=== PATIENT | male | born 1950 | race Caucasian/White ===

== ENCOUNTER → 2016-12-11 | Outpatient (REF) | payer OTHER ==
[~2016-12-11] MED LIST: /ADVA50050; /GLIM4TA PO; /TIOT18INH; /WARF25TA; /WARF5TA; ACET65TA; ADV250INH INH; ALBU17IN2; ALBU17IN2 INH; ALBU83IN INH; ALCLOMETASONE; AMLO25TA PO; BUTR10DI2 TD; CLOB05OI TOP; CLON0.2T PO; COUMADIN; COZA100T2 PO; CYMB60CA3 PO; DAPS25TA2 PO; DICL13PA TD; DOCU10CA PO; DRIS50002 PO; DULCOLAX; EFFE150C; FISH100049 PO; FISHCAP; FLON0.05; FLUTISP; GLUC1KIT INJ; GUAFENESIN; HYDR-3713 PO; HYDR25T PO; HYDR25TA6; HYDR25TA6 PO; INSUH10VL SC; INSULADS SC; INSULANT; JANT7.5T; LANTUS INSULIN; LIPI20TA; LIPI20TA PO; LISI10TA4; LORT1TAB2 PO; MECL-68 PO; MIRALEX; NIAS500T2; NOVO70VL; NOVOLIN; PATA2.5S OU; PATANOL; PRED10TA2; PRIL20CA PO; PROA1AER INH; REST15CA; REST30CA PO; SALI0.653; SILV1CRE19 TOP; SKEL800T5; SPIR1CAP INH; TEMA30CA; VICO5TAB; VITA100037 PO; VITAMIN D; VITAMINS; WARF-21 PO; WARF-22 PO; XANA0.5T; XOPE1.252; [UNRECOGNIZED DRUG - OTHER]; [UNRECOGNIZED DRUG - OTHER]
[2016-12-11 16:12] LABS: INR 3.38
== END ==
LOC: M SFHCPLAZ 12:59
PROVIDERS: ATTEND Nurse Practitioner Family
DX: Z51.81 Encounter for therapeutic drug level monitoring (principal); Z79.899 Other long term (current) drug therapy

== ENCOUNTER → 2016-12-11 | Outpatient (REF) | payer OTHER ==
[2016-12-11 15:54] LABS: MEAN CORPUSCULAR HEMOGLOBIN 30.3 pg (27.0-33.0); MEAN CORPUSCULAR HGB CONC 33.4 g/dl (32.0-36.5); MEAN CORPUSCULAR VOLUME 90.7 fl (80.0-96.0); RED CELL DISTRIBUTION WIDTH 13.6 % (11.5-14.5); WHITE BLOOD COUNT 12.5 K/mm3 (4.0-10.0)
[2016-12-11 16:12] LABS: ALBUMIN 2.9 GM/DL (3.2-5.2); CALCIUM LEVEL 8.7 MG/DL (8.8-10.2); CREATININE FOR GFR 2.21 MG/DL (0.70-1.30); PHOSPHORUS LEVEL 3.4 MG/DL (2.5-4.9); POTASSIUM SERUM 4.4 MEQ/L (3.5-5.1)
== END ==
LOC: M LABDRAWP 15:38
PROVIDERS: ATTEND Internal Medicine Nephrology
DX: N18.3 Chronic kidney disease, stage 3 (moderate) (principal); D63.1 Anemia in chronic kidney disease; N25.81 Secondary hyperparathyroidism of renal origin; Z51.81 Encounter for therapeutic drug level monitoring; Z79.899 Other long term (current) drug therapy

== ENCOUNTER → 2016-12-25 | Outpatient (REF) | payer OTHER ==
[2016-12-25 16:00] LABS: INR 2.02
== END ==
LOC: M SFHCPLAZ 15:19
PROVIDERS: ATTEND Nurse Practitioner Family
DX: Z51.81 Encounter for therapeutic drug level monitoring (principal); Z79.01 Long term (current) use of anticoagulants

== ENCOUNTER → 2017-01-12 | Outpatient (CLI) | payer OTHER ==
--- NOTE | 2017-01-20 01:08 | ECWPNPC ---
PATIENT NAME: YOVANI VALLEJO : 1950 GENDER: MALE VISIT DATE: 01/12/2017 DISCHARGE DATE: 01/12/17 1617 VISIT LOCKED DATE TIME: PHYSICIAN: SAVANNA PARR RESOURCE: SAVANNA PARR REASON FOR APPOINTMENT 1. FOOT HISTORY OF PRESENT ILLNESS HISTORY OF PRESENT ILLNESS: HERE FOR F/U AND MEDICINE MANAGEMENT OF PERSISTENT LOW BACK PAIN AND DPN PAIN. REPORTS SIGNIFICANT INCREASE IN LBP PAST 2 WEEKS.PAIN IS LOCATED ON RIGHT LOW BACK AND TRAVELS UP RIGHT BACK TO SHOULDER AREA. STATES HE RECENTLY WAS DX WITH STAGE 3 KIDNEY DISEASE AND KIDNEYS HAVE BEEN STABLE AT 28%.RATING PAIN VAS 10/10.PAIN AGGREVATED BY STANDING TO WALK.PAIN IS NOT BEING CONTROLLED WITH CURRENT BUTRANS 10MCG Q7DAYS. PAIN THE PATIENT DESCRIBES THE PAIN... THE PATIENT DESCRIBES THE PAIN... FALL RISK SCREENING: SCREENING :NO FALLS IN THE PAST YEAR CURRENT MEDICATIONS TAKING NEURONTIN 600 MG TABLET 1 TABLET ORALLY EVERY NIGHT TAKING CLOBETASOL PROPIONATE 0.05 % OINTMENT 1 APPLICATION TO AFFECTED AREA ON LEGS AND ARMS EXTERNALLY TWICE A DAY NEEDED TAKING NORVASC 5 MG TABLET 1 TABLET ORALLY ONCE A DAY TAKING COZAAR 100 MG TABLET 1 TAB(S) ORALLY DAILY TAKING FLUTICASONE PROPIONATE 50 MCG/ACT SUSPENSION INSTILL 1-2 SPRAYS INTO EACH NOSTRIL ONCE DAILY NASALLY ONCE A DAY NEEDED TAKING PATADAY 0.2 % SOLUTION DIRECTED OPHTHALMIC ONCE DAILY TAKING DRISDOL 50,000 UNITS TABLET 1 CAPSULE ORALLY ONCE A WEEK TAKING GLUCAGON EMERGENCY 1 MG KIT DIRECTED INJECTION DAILY NEEDED TAKING MIRALAX PACKET 1 PACKET MIXED WITH 8 OUNCES OF FLUID ORALLY DAILY TAKING ZOFRAN ODT 4 MG TABLET DISPERSIBLE 1 TABLET ON THE TONGUE AND ALLOW TO DISSOLVE ORALLY EVERY 8 HRS NEEDED TAKING FISH OIL 1000 MG CAPSULE 1 CAP(S) ORALLY THREE TIMES A DAY TAKING PEN NEEDLES 31G X 5 MM ULTRA FINE 1 EACH INTRADERMALLY DIAG CODE 250.60 FOUR TIMES A DAY TAKING MECLIZINE HCL 25 MG TABLET 1 TABLET ORALLY ONCE A DAY NEEDED FOR VERTIGO TAKING COBAN SELF-ADHERENT WRAP 1 MISCELLANEOUS TO WOUND TOPICAL DAILY, NEEDED TAKING CLOBETASOL PROPIONATE 0.05 % SOLUTION 1 DROP TO AFFECTED AREA EXTERNALLY TO AREAS ON SCALP, ARMS, BUTTOCKS, ABDOMEN TWICE A DAY TAKING TAMSULOSIN HCL 0.4 MG CAPSULE EXTENDED RELEASE 24 HOUR 1 CAPSULE 30 MINUTES AFTER THE SAME MEAL EACH DAY ORALLY ONCE A DAY TAKING MOVANTIK 12.5 MG TABLET 1 TABLET IN THE MORNING ORALLY ONCE A DAY TAKING LIPITOR 40 MG TABLET 1 TABLET ORALLY ONCE A DAY TAKING SALINE NASAL SPRAY 0.65 % SOLUTION 2 SPRAYS EACH NOSTRIL NASALLY FOUR TIMES DAILY NEEDED TAKING CETIRIZINE HCL 10 MG CAPSULE 1 CAPSULE ORALLY ONCE A DAY PRN TAKING HYDROCHLOROTHIAZIDE 25 25 MG TABLET 1 TAB(S) ORALLY DAILY TAKING LANTUS 100 UNIT/ML SOLUTION TWICE A DAY SUBCUTANEOUS 10 UNITS IN AM 20 PM TAKING NOVOLOG 100 UNIT/ML SOLUTION 10 UNITS BREAKFAST, 10 UNITS LUNCH, 14 UNITS DINNER ( DR. PRADO) SUBCUTANEOUS THREE TIMES A DAY DR PRADO TAKING AMARYL 4 MG TABLET 1 TABLET ORALLY TWICE A DAY TAKING OMEPRAZOLE 20 MG CAPSULE DELAYED RELEASE 1 CAP(S) ORALLY DAILY TAKING COUMADIN 7.5 MG TABLET 1 TABLET ORALLY 5 MGS ON SAT, SUN & WED. 7,5 MGS REST OF WEEK TAKING ALBUTEROL SULFATE (2.5 MG/3ML) 0.083% NEBULIZATION SOLUTION 3 ML INHALATION EVERY 4 HRS NEEDED TAKING PROVENTIL HFA 108 (90 BASE) MCG/ACT AEROSOL SOLUTION 2 PUFFS INHALATION EVERY 4 HOURS NEEDED TAKING INCRUSE ELLIPTA 62.5 MCG/INH AEROSOL POWDER BREATH ACTIVATED 1 PUFF ONCE A DAY INHALATION 30 DAY(S) TAKING ADVAIR DISKUS 500-50 MCG/DOSE AEROSOL POWDER BREATH ACTIVATED 1 PUFF INHALATION TWICE A DAY TAKING PREDNISONE 20 MG TABLET 1 TABLET ORALLY ONCE A DAY TAKING HYDROXYZINE HCL 25 MG TABLET 1 TABLET ORALLY EVERY 8 HRS NEEDED TAKING NORCO 5-325 MG TABLET 1 TABLET NEEDED ORALLY EVERY 6 HRS MDD =4 TAKING CYMBALTA 60 MG CAPSULE DELAYED RELEASE PARTICLES 1 CAPSULE ORALLY ONCE A DAY TAKING BUTRANS 10 MCG/HR PATCH WEEKLY 1 PATCH TO SKIN TRANSDERMAL APPLY 1 PATCH Q 7 DAYS MDD=1 TAKING TEMAZEPAM 30 MG CAPSULE 1 CAPSULE AT BEDTIME NEEDED ORALLY ONCE A DAY NOT-TAKING CEFTIN 500 MG TABLET 1 TABLET ORALLY TWICE A DAY MEDICATION LIST REVIEWED AND RECONCILED WITH THE PATIENT PAST MEDICAL HISTORY DVT CHRONIC PHLEBITIS CHRONIC VENOUS INSUFFICIENCY PERIPHERAL NEUROPATHY TYPE 2 DIABETES--DR Amisha PRADO HYPERLIPIDEMIA HTN COPD HX OF DEPRESSION DDD/DJD GERD DERMATITIS HERPETIFORMIS-- + BX 05/03 DR MCDONALD ADENOMATOUS COLON POLYP 2009 RESTLESS LEG SYNDROME GLUTEN INTOLERANT (NOT CELIAC DIS-- NEG SB BX 06/03--BUT HAS DERMATITIS HERPETIFORMIS-- + BX 05/03 DR MCDONALD) RIGTH SHOULDER NERVE IMPINGEMENT/RIGHT CARPEL TUNNEL - DR. PRADO GORDON ON CPAP SUBCLINICAL HYPOTHYROIDISM 06/07 DIVERTICULOSIS 01/2016 KIDNEY DISEASE ALLERGIES ACTOS: EDEMA: SIDE EFFECTS DEMEROL: HIVES: ALLERGY DILANTIN: ANAPHYLAXIS: ALLERGY GLUCOPHAGE: RASH: ALLERGY LEVAQUIN: HEAD ACHE: SIDE EFFECTS PHENOBARBITAL: ANAPHYLAXIS: ALLERGY TEGRETOL: ANAPHYLAXIS: ALLERGY PENICILLIN (FOR ALLERGIES USE ONLY): HIVES: ALLERGY TRIPLE ANTIBIOTIC: FACIAL SWELLING: ALLERGY REQUIP: ELEVATED LIVER ENZYMES LATEX (FOR ALLERGY USE ONLY): RASH: ALLERGY CRESTOR: HEADACHE LYRICA: DIDN'T WORK: SIDE EFFECTS CAPSACIN (TOPICALLY): EXCESSIVE BURNING: SIDE EFFECTS LISINOPRIL: RASH: SIDE EFFECTS GABAPENTIN: DIDN'T WORK: LACK OF THERAPEUTIC EFFECT DAPSONE: ANEMIA: SIDE EFFECTS NSAIDS: CONTRAINDICATION SOCIAL HISTORY GENERAL: TOBACCO USE ARE YOU A:NONSMOKER LEARNING BARRIERS / SPECIAL NEEDS ORIENTED TO PLAN OF CARE: PATIENT, PAIN MANAGEMENT PATIENT, ORIENTED TO PLAN OF CARE: PATIENT, PAIN MANAGEMENT PATIENT. NEW PATIENT PAIN DIARY TODAY'S VISITNOTES FROM 0-10, WHAT LEVEL IS YOUR PAIN TODAY?0 PAIN CLINIC PFS, CLERGY, PUBLIC HEALTH REFERRALS PFS REFERRAL NEEDED?NO CLERGY REFERRAL NEEDED?NO PUBLIC HEALTH REFERRAL NEEDED?NO WAS THE PROVIDER NOTIFIED OF ANY PERTINENT INFO?NO PFS REFERRAL NEEDED?NO CLERGY REFERRAL NEEDED?NO PUBLIC HEALTH REFERRAL NEEDED?NO WAS THE PROVIDER NOTIFIED OF ANY PERTINENT INFO?NO REVIEW OF SYSTEMS CONSTITUTIONAL: ANY CHANGE IN YOUR MEDICAL CONDITION? NO . CHILLS NO . FEVER NO . INFECTION: DO YOU HAVE NEW INFECTIONS? NO . DO YOU HAVE HISTORY OF MRSA? NO . MUSCULOSKELETAL: ANY NEW PATTERNS OF PAIN OR NUMBNESS? YES, TINGLING LEFT FOOT AT NIGHT . GASTROENTEROLOGY: ANY NEW CHANGE IN BOWEL CONTROL? NO . GENITOURINARY: ANY NEW CHANGE IN BLADDER CONTROL? NO . IS THERE A CHANCE YOU COULD BE ? NO . HEMATOLOGY/LYMPH: DO YOU TAKE ANY BLOOD THINNERS? (FOR EXAMPLE- COUMADIN, PLAVIX, AGGRENOX, PLATEL, PRADAXA, OR XARELTO) YES, COUMADIN . WHEN WAS YOUR LAST DOSE? DATE: TIME: 01/11/17 1700 . NEUROLOGY: HAVE YOU FALLEN IN THE PAST 6 MONTHS? NO . ANY NEW EXTREMITY NUMBNESS OR WEAKNESS? NO . CARDIOLOGY: DO YOU HAVE A PACEMAKER OR DEFIBRILLATOR? NO . RESPIRATORY: HAVE YOU BEEN SICK IN THE PAST WEEK? YES HAS A COLD AT PRESENT TIME AND HAS HAD PNEUMONIA X2 THIS WINTER . FEVER NO . FLU LIKE SYMPTOMS? NO . COUGH YES, PRODUCTIVE, WHITE SPUTUM . INTEGUMENTARY: DO YOU HAVE ANY RASHES OR OPEN SORES? YES SCRATCHES ON HANDS AND ARMS . ALLERGIC/IMMUNO: ARE YOU ALLERGIC TO SHELLFISH OR IV DYE? NO . ANY NEW ALLERGIES? NO . PSYCHIATRIC: DO YOU HAVE THOUGHTS OF HURTING YOURSELF OR SOMEONE ELSE? NO . ARE YOU ABUSED, NEGLECTED, OR IN AN UNSAFE ENVIRONMENT? NO . ENDOCRINOLOGY: ARE YOU DIABETIC? YES, FSBS WAS 218 @ 1200 TODAY . OTHER: DO YOU NEED ANY PRESCRIPTIONS? YES . IF YES, PLEASE LIST: ___BUTRANS AND MOVANTIK . ANY NEW PROBLEMS WITH YOUR MEDICATIONS? NO . WHEN DID YOU LAST EAT? ____ . WHEN DID YOU LAST DRINK? ____ . WHAT DID YOU LAST DRINK? ____ . NAME OF PERSON DRIVING YOU HOME? ____ . DO YOU HAVE ANY OTHER QUESTIONS OR CONCERNS NO . REVIEWED BY: PROVIDER: SAVANNA PATEL . VITAL SIGNS WT 224.6 LBS, HT 69 IN, BMI 33.16 INDEX, BP 171/73 MM HG, HR 84 /MIN, RR 18 /MIN, TEMP 98.1 F, OXYGEN SAT % 95%, NA INITIALS SC15:24, REVIEWED BY: AD. EXAMINATION GENERAL EXAMINATION: LUNGS:LUNG SOUNDS ARE CLEAR. HEART:HEART RATE REGULAR. MUSCULOSKELETAL:*PALPATION: POSITIVE FOR PAIN OVER L/S SPINE. POSITIVE FOR PAIN OVER L/S PARASPINALS, , MUSCLE STRENGTH TESTING 5/5 BLE. NEUROLOGICAL: SENSORY:PARATHESIAS TO LIGHT TOUCH RIGHT LOWER EXT.. ASSESSMENTS DIABETIC PERIPHERAL NEUROPATHY - E11.42 (PRIMARY) CHRONIC PRESCRIPTION OPIATE USE - Z79.891 SPONDYLOSIS OF LUMBOSACRAL REGION WITHOUT MYELOPATHY OR RADICULOPATHY - M47.817 TREATMENT DIABETIC PERIPHERAL NEUROPATHY CONTINUE MOVANTIK TABLET, 12.5 MG, 1 TABLET IN THE MORNING, ORALLY, ONCE A DAY INCREASE BUTRANS PATCH WEEKLY, 20 MCG/HR, 1 PATCH TO SKIN, TRANSDERMAL, APPLY 1 PATCH Q 7 DAYS MDD=1, 30 DAY(S), 4, REFILLS 2 START CYCLOBENZAPRINE HCL TABLET, 5 MG, 1 TABLET, ORALLY, BID PRN, 30 DAY(S), 30, REFILLS 2 PROCEDURE CODES FA211 ESTABILISHED PATIENT [facility] CHARGE DISPOSITION & COMMUNICATION FOLLOW UP 6 WEEKS ELECTRONICALLY SIGNED BY JORGE HELLER ON 01/19/2017 AT 05:53 PM EDT DISCLAIMER : THIS IS A VISIT SUMMARY EXTRACTED FROM THE [employer] CHART. IT IS NOT A COPY OF THE [employer] PROGRESS NOTE. MTDD
== END ==
LOC: M PAIN 14:40
PROVIDERS: ATTEND Nurse Practitioner Family
DX: Z09 Encounter for follow-up examination after completed treatment for conditions other than malignant neoplasm (principal); Z79.891 Long term (current) use of opiate analgesic; M47.817 Spondylosis without myelopathy or radiculopathy, lumbosacral region; Z79.84 Long term (current) use of oral hypoglycemic drugs; Z79.4 Long term (current) use of insulin; Z79.01 Long term (current) use of anticoagulants; Z79.899 Other long term (current) drug therapy; Z86.718 Personal history of other venous thrombosis and embolism; K21.9 Gastro-esophageal reflux disease without esophagitis; I10 Essential (primary) hypertension; D63.8 Anemia in other chronic diseases classified elsewhere; E11.42 Type 2 diabetes mellitus with diabetic polyneuropathy; J44.1 Chronic obstructive pulmonary disease with (acute) exacerbation; D50.9 Iron deficiency anemia, unspecified; E78.2 Mixed hyperlipidemia; G25.81 Restless legs syndrome; Z88.0 Allergy status to penicillin; Z88.1 Allergy status to other antibiotic agents; Z88.8 Allergy status to other drugs, medicaments and biological substances; Z91.040 Latex allergy status

== ENCOUNTER → 2017-01-26 | Outpatient (REF) | payer OTHER ==
[2017-01-26 13:51] LABS: INR 1.32
== END ==
LOC: M SFHCPLAZ 11:00
PROVIDERS: ATTEND Nurse Practitioner Family
DX: Z51.81 Encounter for therapeutic drug level monitoring (principal); Z79.01 Long term (current) use of anticoagulants

== ENCOUNTER → 2017-02-08 | Outpatient (REF) | payer OTHER ==
[2017-02-08 15:34] LABS: BASO % 0.7 % (0.0-1.0); EOS # 0.6 K/mm3 (0.0-0.50); EOS % 10.9 % (0.0-3.0); LARGE UNSTAINED CELL # 0.1 K/mm3 (0.0-0.4); LARGE UNSTAINED CELL % 2.3 % (0.0-4.0); LYMPH # 1.7 K/mm3 (1.5-4.5); LYMPH % 28.8 % (24.0-44.0); MEAN CORPUSCULAR HEMOGLOBIN 29.7 pg (27.0-33.0); MEAN CORPUSCULAR HGB CONC 32.5 g/dl (32.0-36.5); MEAN CORPUSCULAR VOLUME 91.2 fl (80.0-96.0); MONO # 0.3 K/mm3 (0.0-0.8); MONO % 5.2 % (0.0-5.0); NEUTROPHILS # 2.8 K/mm3 (1.8-7.7); NEUTROPHILS % 52.1 % (36.0-66.0); PLATELET COUNT, AUTOMATED 228 k/mm3 (150-450); RED CELL DISTRIBUTION WIDTH 12.9 % (11.5-14.5); WHITE BLOOD COUNT 5.4 K/mm3 (4.0-10.0)
[2017-02-08 15:42] LABS: ALBUMIN 3.3 GM/DL (3.2-5.2); ALBUMIN/GLOBULIN RATIO 0.94 (1.00-1.93); BILIRUBIN,TOTAL 0.3 MG/DL (0.2-1.0); CALCIUM LEVEL 8.4 MG/DL (8.8-10.2); CREATININE FOR GFR 2.55 MG/DL (0.70-1.30); GLOMERULAR FILTRATION RATE 27.1 (>49); PERCENT SATURATION 22.3 % (19.7-37.4); POTASSIUM SERUM 4.9 MEQ/L (3.5-5.1); TOTAL PROTEIN 6.8 GM/DL (6.4-8.2)
== END ==
LOC: M SFHCPLAZ 13:57
PROVIDERS: ATTEND Nurse Practitioner Family
DX: E11.9 Type 2 diabetes mellitus without complications (principal); I12.9 Hypertensive chronic kidney disease with stage 1 through stage 4 chronic kidney disease, or unspecified chronic kidney disease; N18.9 Chronic kidney disease, unspecified
CPT/HCPCS: 36415; 80053; 83550; 85025; 85610; G0463

== ENCOUNTER → 2017-02-23 | Outpatient (CLI) | payer OTHER ==
[~2017-02-23] MED LIST changes: +ADV500INH INH; +ALL10TAB27 PO; +BUTR20DI2 TD; +COUM7.5T PO; +FERR325T PO; +FLOM5CAP PO; +GABA-283 PO; +GLIM2TA PO; +HYDR25TAB PO; +INCR1INH IN; +INCR1INH INH; +INSULANT SC; +MIRA3350 PO; +MOVA1TAB PO; +NORC1TAB4 PO; +OMEP20TA PO; +PATA0.2S OP; +REQU0.5T PO; +REQU2TAB3 PO; +SING10TA32 PO; +WARF-23 PO; +ZOFR4TAB3 PO
--- NOTE | 2017-03-03 01:50 | ECWPNPC ---
PATIENT NAME: YOVANI VALLEJO : 1950 GENDER: MALE VISIT DATE: 02/23/2017 DISCHARGE DATE: 02/23/17 1456 VISIT LOCKED DATE TIME: PHYSICIAN: SAVANNA PARR RESOURCE: SAVANNA PARR REASON FOR APPOINTMENT 1. FOOT HISTORY OF PRESENT ILLNESS HISTORY OF PRESENT ILLNESS: HERE FOR F/U AND MEDICINE MANAGEMENT OF PERSISTENT LOW BACK PAIN AND DPN PAIN. REPORTS THAT BUTRANS PATCH 20MCG Q 7 DAYS IS HELPING VERY MUCH.ALSO USING CYCLOBENZAPRINE 5MG AT NIGHT.RATING PAIN VAS 0/10.CHIEF PROBLEM TODAY IS REPORTS OF CHRONIC LEG AND BODY JERKS AT NIGHT. PAIN THE PATIENT DESCRIBES THE PAIN... THE PATIENT DESCRIBES THE PAIN... THE PATIENT DESCRIBES THE PAIN... FALL RISK SCREENING: SCREENING :NO FALLS IN THE PAST YEAR CURRENT MEDICATIONS TAKING PATADAY 0.2 % SOLUTION DIRECTED OPHTHALMIC ONCE DAILY TAKING DRISDOL 50,000 UNITS TABLET 1 CAPSULE ORALLY ONCE A WEEK TAKING GLUCAGON EMERGENCY 1 MG KIT DIRECTED INJECTION DAILY NEEDED TAKING MIRALAX PACKET 1 PACKET MIXED WITH 8 OUNCES OF FLUID ORALLY DAILY TAKING ZOFRAN ODT 4 MG TABLET DISPERSIBLE 1 TABLET ON THE TONGUE AND ALLOW TO DISSOLVE ORALLY EVERY 8 HRS NEEDED TAKING FISH OIL 1000 MG CAPSULE 1 CAP(S) ORALLY THREE TIMES A DAY TAKING PEN NEEDLES 31G X 5 MM ULTRA FINE 1 EACH INTRADERMALLY DIAG CODE 250.60 FOUR TIMES A DAY TAKING MECLIZINE HCL 25 MG TABLET 1 TABLET ORALLY ONCE A DAY NEEDED FOR VERTIGO TAKING COBAN SELF-ADHERENT WRAP 1 MISCELLANEOUS TO WOUND TOPICAL DAILY, NEEDED TAKING TAMSULOSIN HCL 0.4 MG CAPSULE EXTENDED RELEASE 24 HOUR 1 CAPSULE 30 MINUTES AFTER THE SAME MEAL EACH DAY ORALLY ONCE A DAY TAKING SALINE NASAL SPRAY 0.65 % SOLUTION 2 SPRAYS EACH NOSTRIL NASALLY FOUR TIMES DAILY NEEDED TAKING CETIRIZINE HCL 10 MG CAPSULE 1 CAPSULE ORALLY ONCE A DAY PRN TAKING INCRUSE ELLIPTA 62.5 MCG/INH AEROSOL POWDER BREATH ACTIVATED 1 PUFF ONCE A DAY INHALATION 30 DAY(S) TAKING MOVANTIK 12.5 MG TABLET 1 TABLET IN THE MORNING ORALLY ONCE A DAY TAKING COUMADIN 5 MG TABLET 1 TABLET ORALLY 5 MG ON SAT AND SUN AND 7.5 MG REST OF THE WEEK TAKING LANTUS 100 UNIT/ML SOLUTION TWICE A DAY SUBCUTANEOUS 10 UNITS IN AM 24 PM TAKING NOVOLOG 100 UNIT/ML SOLUTION 10 UNITS BREAKFAST, 10 UNITS LUNCH, 23 UNITS DINNER ( DR. PRADO) SUBCUTANEOUS 10 UNITS IN AM, 10 UNITS LUNCH AND 23 UNITS DINNER TAKING AMARYL 4 MG TABLET 1 TABLET ORALLY TWICE A DAY TAKING HYDROCHLOROTHIAZIDE 25 25 MG TABLET 1 TAB(S) ORALLY DAILY TAKING COZAAR 100 MG TABLET 1 TAB(S) ORALLY DAILY TAKING NORVASC 5 MG TABLET 1 TABLET ORALLY ONCE A DAY TAKING NEURONTIN 600 MG TABLET 1 TABLET ORALLY EVERY NIGHT TAKING TEMAZEPAM 30 MG CAPSULE 1 CAPSULE AT BEDTIME NEEDED ORALLY ONCE A DAY TAKING CYMBALTA 60 MG CAPSULE DELAYED RELEASE PARTICLES 1 CAPSULE ORALLY ONCE A DAY TAKING BUTRANS 20 MCG/HR PATCH WEEKLY 1 PATCH TO SKIN TRANSDERMAL APPLY 1 PATCH Q 7 DAYS MDD=1 TAKING CYCLOBENZAPRINE HCL 5 MG TABLET 1 TABLET ORALLY BID PRN TAKING ADVAIR DISKUS 500-50 MCG/DOSE AEROSOL POWDER BREATH ACTIVATED 1 PUFF INHALATION TWICE A DAY TAKING PROVENTIL HFA 108 (90 BASE) MCG/ACT AEROSOL SOLUTION 2 PUFFS INHALATION EVERY 4 HOURS NEEDED TAKING ALBUTEROL SULFATE (2.5 MG/3ML) 0.083% NEBULIZATION SOLUTION 3 ML INHALATION EVERY 4 HRS NEEDED TAKING FULL KIT NEBULIZER SET - MISCELLANEOUS DIRECTED DX J44.9 (COPD) DAILY TAKING ALCLOMETASONE DIPROPIONATE 0.05 % OINTMENT 1 APPLICATION TO AFFECTED AREA EXTERNALLY ONCE A DAY TAKING LIPITOR 40 MG TABLET 1 TABLET ORALLY ONCE A DAY TAKING OMEPRAZOLE 20 MG CAPSULE DELAYED RELEASE 1 CAP(S) ORALLY DAILY TAKING FLUTICASONE PROPIONATE 50 MCG/ACT SUSPENSION INSTILL 1-2 SPRAYS INTO EACH NOSTRIL ONCE DAILY NASALLY ONCE A DAY TAKING NORCO 5-325 MG TABLET 1 TABLET NEEDED ORALLY EVERY 6 HRS MDD =4, NOTES: DO NOT FILL EARLY NOT-TAKING CLOBETASOL PROPIONATE 0.05 % OINTMENT 1 APPLICATION TO AFFECTED AREA ON LEGS AND ARMS EXTERNALLY TWICE A DAY NEEDED, NOTES: NO LONGER COVERED NOT-TAKING PREDNISONE 20 MG TABLET 1 TABLET ORALLY ONCE A DAY NOT-TAKING CEFTIN 500 MG TABLET 1 TABLET ORALLY TWICE A DAY MEDICATION LIST REVIEWED AND RECONCILED WITH THE PATIENT PAST MEDICAL HISTORY DVT CHRONIC PHLEBITIS CHRONIC VENOUS INSUFFICIENCY PERIPHERAL NEUROPATHY TYPE 2 DIABETES--DR Amisha PRADO HYPERLIPIDEMIA HTN COPD HX OF DEPRESSION DDD/DJD GERD DERMATITIS HERPETIFORMIS-- + BX 05/03 DR MCDONALD ADENOMATOUS COLON POLYP 2009 RESTLESS LEG SYNDROME GLUTEN INTOLERANT (NOT CELIAC DIS-- NEG SB BX 06/03--BUT HAS DERMATITIS HERPETIFORMIS-- + BX 05/03 DR MCDONALD) RIGTH SHOULDER NERVE IMPINGEMENT/RIGHT CARPEL TUNNEL - DR. PRADO GORDON ON CPAP SUBCLINICAL HYPOTHYROIDISM 06/07 DIVERTICULOSIS 01/2016 KIDNEY DISEASE ALLERGIES ACTOS: EDEMA: SIDE EFFECTS DEMEROL: HIVES: ALLERGY DILANTIN: ANAPHYLAXIS: ALLERGY GLUCOPHAGE: RASH: ALLERGY LEVAQUIN: HEAD ACHE: SIDE EFFECTS PHENOBARBITAL: ANAPHYLAXIS: ALLERGY TEGRETOL: ANAPHYLAXIS: ALLERGY PENICILLIN (FOR ALLERGIES USE ONLY): HIVES: ALLERGY TRIPLE ANTIBIOTIC: FACIAL SWELLING: ALLERGY REQUIP: ELEVATED LIVER ENZYMES LATEX (FOR ALLERGY USE ONLY): RASH: ALLERGY CRESTOR: HEADACHE LYRICA: DIDN'T WORK: SIDE EFFECTS CAPSACIN (TOPICALLY): EXCESSIVE BURNING: SIDE EFFECTS LISINOPRIL: RASH: SIDE EFFECTS GABAPENTIN: DIDN'T WORK: LACK OF THERAPEUTIC EFFECT DAPSONE: ANEMIA: SIDE EFFECTS NSAIDS: CONTRAINDICATION REVIEW OF SYSTEMS CONSTITUTIONAL: ANY CHANGE IN YOUR MEDICAL CONDITION? NO . CHILLS NO . FEVER NO . INFECTION: DO YOU HAVE NEW INFECTIONS? NO . DO YOU HAVE HISTORY OF MRSA? NO . MUSCULOSKELETAL: ANY NEW PATTERNS OF PAIN OR NUMBNESS? NO . GASTROENTEROLOGY: ANY NEW CHANGE IN BOWEL CONTROL? NO . GENITOURINARY: ANY NEW CHANGE IN BLADDER CONTROL? NO . IS THERE A CHANCE YOU COULD BE ? NO . HEMATOLOGY/LYMPH: DO YOU TAKE ANY BLOOD THINNERS? (FOR EXAMPLE- COUMADIN, PLAVIX, AGGRENOX, PLATEL, PRADAXA, OR XARELTO) YES, COUMADIN . WHEN WAS YOUR LAST DOSE? DATE: 02/22/17 TIME: 5 PM . NEUROLOGY: HAVE YOU FALLEN IN THE PAST 6 MONTHS? NO . ANY NEW EXTREMITY NUMBNESS OR WEAKNESS? NO . CARDIOLOGY: DO YOU HAVE A PACEMAKER OR DEFIBRILLATOR? NO . RESPIRATORY: HAVE YOU BEEN SICK IN THE PAST WEEK? NO . FEVER NO . FLU LIKE SYMPTOMS? NO . COUGH NO . INTEGUMENTARY: DO YOU HAVE ANY RASHES OR OPEN SORES? YES, ON ARMS AND LEGS . ALLERGIC/IMMUNO: ARE YOU ALLERGIC TO SHELLFISH OR IV DYE? NO . ANY NEW ALLERGIES? NO . PSYCHIATRIC: DO YOU HAVE THOUGHTS OF HURTING YOURSELF OR SOMEONE ELSE? NO . ARE YOU ABUSED, NEGLECTED, OR IN AN UNSAFE ENVIRONMENT? NO . ENDOCRINOLOGY: ARE YOU DIABETIC? YES . OTHER: DO YOU NEED ANY PRESCRIPTIONS? NO . IF YES, PLEASE LIST: ____ . ANY NEW PROBLEMS WITH YOUR MEDICATIONS? NO . WHEN DID YOU LAST EAT? ____ . WHEN DID YOU LAST DRINK? ____ . WHAT DID YOU LAST DRINK? ____ . NAME OF PERSON DRIVING YOU HOME? ____ . DO YOU HAVE ANY OTHER QUESTIONS OR CONCERNS NO . REVIEWED BY: PROVIDER: SAVANNA PATEL . VITAL SIGNS WT 225 LBS, HT 69 IN, BMI 33.22 INDEX, BP 144/67 MM HG, HR 96 /MIN, RR 18 /MIN, TEMP 98.4 F, OXYGEN SAT % 94%, NA INITIALS AW 1407, REVIEWED BY: CS. EXAMINATION GENERAL EXAMINATION: LUNGS:LUNG SOUNDS ARE CLEAR. HEART:HEART RATE REGULAR. MUSCULOSKELETAL:*PALPATION: POSITIVE FOR PAIN OVER L/S SPINE. POSITIVE FOR PAIN OVER L/S PARASPINALS, , MUSCLE STRENGTH TESTING 5/5 BLE. ASSESSMENTS DIABETIC PERIPHERAL NEUROPATHY - E11.42 (PRIMARY) CHRONIC PRESCRIPTION OPIATE USE - Z79.891 SPONDYLOSIS OF LUMBOSACRAL REGION WITHOUT MYELOPATHY OR RADICULOPATHY - M47.817 TREATMENT DIABETIC PERIPHERAL NEUROPATHY REFILL BUTRANS PATCH WEEKLY, 20 MCG/HR, 1 PATCH TO SKIN, TRANSDERMAL, APPLY 1 PATCH Q 7 DAYS MDD=1, 30 DAY(S), 4, REFILLS 2 STOP CYCLOBENZAPRINE HCL TABLET, 5 MG, 1 TABLET, ORALLY, BID PRN START REQUIP XL TABLET EXTENDED RELEASE 24 HOUR, 2 MG, 1 TABLET, ORALLY, ONCE A DAY, 30 DAY(S), 30, REFILLS 1 NOTES: REQUIP INFORMATION GIVEN. PROCEDURE CODES FA211 ESTABILISHED PATIENT [facility] CHARGE DISPOSITION & COMMUNICATION FOLLOW UP 6 WEEKS ELECTRONICALLY SIGNED BY JORGE HELLER ON 03/02/2017 AT 02:32 PM EDT DISCLAIMER : THIS IS A VISIT SUMMARY EXTRACTED FROM THE [employer] CHART. IT IS NOT A COPY OF THE [employer] PROGRESS NOTE. JOVANNA
== END ==
LOC: M PAIN 14:00
PROVIDERS: ATTEND Nurse Practitioner Family
DX: E11.42 Type 2 diabetes mellitus with diabetic polyneuropathy (principal); Z79.891 Long term (current) use of opiate analgesic; M47.817 Spondylosis without myelopathy or radiculopathy, lumbosacral region; Z79.899 Other long term (current) drug therapy; Z79.4 Long term (current) use of insulin; Z88.5 Allergy status to narcotic agent; Z88.0 Allergy status to penicillin; Z88.1 Allergy status to other antibiotic agents; Z91.040 Latex allergy status; Z86.718 Personal history of other venous thrombosis and embolism; K21.9 Gastro-esophageal reflux disease without esophagitis; E11.9 Type 2 diabetes mellitus without complications; I10 Essential (primary) hypertension; D63.8 Anemia in other chronic diseases classified elsewhere; J44.9 Chronic obstructive pulmonary disease, unspecified; D50.9 Iron deficiency anemia, unspecified; E78.2 Mixed hyperlipidemia

== ENCOUNTER → 2017-02-26 | Outpatient (REF) | payer OTHER ==
[~2017-02-26] MED LIST changes: +AMLO5TAB2 PO
[2017-02-26 16:02] LABS: EOS % 0.2 % (0.0-3.0); LARGE UNSTAINED CELL % 0.6 % (0.0-4.0); LYMPH # 0.8 K/mm3 (1.5-4.5); LYMPH % 11.6 % (24.0-44.0); MEAN CORPUSCULAR HEMOGLOBIN 30.2 pg (27.0-33.0); MEAN CORPUSCULAR HGB CONC 32.6 g/dl (32.0-36.5); MEAN CORPUSCULAR VOLUME 92.7 fl (80.0-96.0); MONO # 0.3 K/mm3 (0.0-0.8); MONO % 3.8 % (0.0-5.0); NEUTROPHILS # 5.7 K/mm3 (1.8-7.7); NEUTROPHILS % 83.8 % (36.0-66.0); PLATELET COUNT, AUTOMATED 244 k/mm3 (150-450); RED CELL DISTRIBUTION WIDTH 12.9 % (11.5-14.5); WHITE BLOOD COUNT 6.8 K/mm3 (4.0-10.0)
[2017-02-26 16:19] LABS: PERCENT SATURATION 17.7 % (19.7-37.4)
== END ==
LOC: M SFHCPLAZ 14:56
PROVIDERS: ATTEND Nurse Practitioner Family
DX: N18.9 Chronic kidney disease, unspecified (principal); D63.8 Anemia in other chronic diseases classified elsewhere; Z79.899 Other long term (current) drug therapy
CPT/HCPCS: 36415; 83550; 85025; G0463

== ENCOUNTER → 2017-03-10 | Outpatient (CLI) | payer OTHER ==
[~2017-03-10] MED LIST changes: +BUTR10DI TD; -BUTR10DI2 TD; +BUTR20DI TD; -BUTR20DI2 TD; +FERR1TAB8 PO; -FERR325T PO; +HYDR-3363 PO; -HYDR25T PO; -PROA1AER INH; +PROAAER10 INH; -REQU0.5T PO; +REQU1TAB15 PO; +SALI0.6523; -SALI0.653; -SILV1CRE19 TOP; +SILV1CRE60 TOP; -VITA100037 PO; +VITA100067 PO
--- NOTE | 2017-03-17 15:20 | PFTRPT ---
Tech: Pearl CARMONA RRT Age: 66 Sex: Male Race: Height: 69.00 Inches Weight: 213.00 Lbs BSA: 2.12 Diagnosis: J44.9 TECH NOTES: The test meets the ATS standards for acceptability and repeatability. The patient was given four puffs of albuterol for postbronchodilator. PULMONARY FUNCTION REPORT ORDERING PROVIDER: David Orr MD DATE OF SERVICE: 03/10/17 SPIROMETRY: Pre and post bronchodilator study of excellent technical quality. The forced vital capacity is reduced. The FEV1 is in proportion. The obstructive index is, therefore, normal. FLOW VOLUME LOOP: The expiratory limb of the flow volume loop does suggest flow rate limitation, however. Very favorable bronchodilator response is identified. LUNG VOLUMES: The total lung capacity is normal. The residual volume suggests significant underlying air trapping. DIFFUSION CAPACITY: The diffusion capacity is severely reduced and does not correct for alveolar volume. HEMOGLOBIN: No hemoglobin is available for correction. AIRWAY MECHANICS: Airways resistance and conductance are acceptable. IMPRESSION: Reversible obstructive ventilatory impairment with underlying air trapping and a significant diffusion capacity impairment. Please correlate clinically. MTDD
== END ==
LOC: M CARPUL 15:07
PROVIDERS: ATTEND Family Medicine
DX: J44.9 Chronic obstructive pulmonary disease, unspecified (principal); Z51.81 Encounter for therapeutic drug level monitoring; Z79.01 Long term (current) use of anticoagulants
CPT/HCPCS: 85610; 94060; 94726; 94729; G0463

== ENCOUNTER 2017-03-16 20:09 | Inpatient (IN) | payer OTHER ==
[~2017-03-16] VITALS: Ht 175.3 cm; Wt 95.7 kg
[2017-03-16] MEDS: ADVAIR DISKUS 500/50 INH PWD INH SCH ×2 (03:00→21:00)
[~2017-03-16 20:09] MED LIST changes: -ADV500INH INH; -ALL10TAB27 PO; -AMLO5TAB2 PO; -BUTR10DI TD; +BUTR10DI2 TD; -BUTR20DI TD; -COUM7.5T PO; -FERR1TAB8 PO; -FLOM5CAP PO; -GABA-283 PO; -GLIM2TA PO; -HYDR-3363 PO; +HYDR25T PO; -HYDR25TAB PO; -INCR1INH IN; -INCR1INH INH; -INSULANT SC; -MIRA3350 PO; -MOVA1TAB PO; -NORC1TAB4 PO; -OMEP20TA PO; -PATA0.2S OP; +PROA1AER INH; -PROAAER10 INH; -REQU1TAB15 PO; -REQU2TAB3 PO; -SALI0.6523; +SALI0.653; +SILV1CRE19 TOP; -SILV1CRE60 TOP; -SING10TA32 PO; +VITA100037 PO; -VITA100067 PO; -WARF-23 PO; -ZOFR4TAB3 PO
[2017-03-16] MEDS ORDERED: NORC1TAB4 PO (21:00)
[2017-03-16] MEDS ORDERED: WARF-23 PO (21:00)
[2017-03-16] MEDS ORDERED: ZOFR4TAB3 PO (21:00)
[2017-03-16] MEDS ORDERED: GLIM2TA PO (21:00)
[2017-03-16] MEDS ORDERED: LEVEMIR (INSULIN DETEMIR) 1 UNITS/0.01ML SC SCH (21:00)
[2017-03-16] MEDS ORDERED: ALL10TAB27 PO (21:00)
[2017-03-16] MEDS ORDERED: GABA-283 PO (21:00)
[2017-03-16] MEDS ORDERED: MOVA1TAB PO (21:00)
[2017-03-16] MEDS ORDERED: DRIS50002 PO (21:00)
[2017-03-16] MEDS ORDERED: methylPREDNISolone INJ 125 MG/2 ML VIAL (J2930) IV ONE (21:00)
[2017-03-16] MEDS ORDERED: BUTR20DI2 TD (21:00)
[2017-03-16] MEDS ORDERED: REQU2TAB3 PO (21:00)
[2017-03-16] MEDS ORDERED: MIRA3350 PO (21:00)
[2017-03-16] MEDS ORDERED: PATA0.2S OP (21:00)
[2017-03-16] MEDS ORDERED: INCR1INH IN (21:00)
[2017-03-16] MEDS ORDERED: FLOM5CAP PO (21:00)
[2017-03-16] MEDS ORDERED: ADV500INH INH (21:00)
[2017-03-16] MEDS: IPRATROPIUM 0.5MG/ALBUTEROL 2.5MG INH SOL UD 3ML (DUONEB)(J7620) NEB PRN ×2 (21:23→21:24)
[2017-03-16 21:56] LABS: BASO % 0.2 % (0.0-1.0); EOS # 0.7 K/mm3 (0.0-0.50); EOS % 7.6 % (0.0-3.0); LARGE UNSTAINED CELL # 0.2 K/mm3 (0.0-0.4); LARGE UNSTAINED CELL % 2.6 % (0.0-4.0); LYMPH # 1.9 K/mm3 (1.5-4.5); MEAN CORPUSCULAR HEMOGLOBIN 29.7 pg (27.0-33.0); MEAN CORPUSCULAR VOLUME 87.4 fl (80.0-96.0); MONO # 0.4 K/mm3 (0.0-0.8); MONO % 4.4 % (0.0-5.0); NEUTROPHILS % 66.2 % (36.0-66.0); PLATELET COUNT, AUTOMATED 268 k/mm3 (150-450); RED CELL DISTRIBUTION WIDTH 12.9 % (11.5-14.5)
[2017-03-16 22:15] LABS: CALCIUM LEVEL 7.8 MG/DL (8.8-10.2); CREATININE FOR GFR 3.46 MG/DL (0.70-1.30); POTASSIUM SERUM 4.6 MEQ/L (3.5-5.1)
[2017-03-16 22:25] VITALS: O2SAT 95
[2017-03-17] MEDS ORDERED: GLUCAGON FOR INJ 1 MG VIAL (J1610) SC PRN
[2017-03-17] MEDS ORDERED: DEXTROSE 50% 50 ML SYRINGE IV PRN
[2017-03-17] MEDS ORDERED: GLUCOSE 4 GM CHEW TABLET PO PRN
[2017-03-17 00:21] LABS: INR 3.41
[2017-03-17 00:25] VITALS: BP 157/67
[2017-03-17] MEDS ORDERED: FLUTISP (00:30)
[2017-03-17] MEDS ORDERED: HYDR25TAB PO (00:30)
[2017-03-17] MEDS ORDERED: INSUH10VL SC (00:30)
[2017-03-17] MEDS ORDERED: INSULANT SC ×2 (00:30)
[2017-03-17] MEDS ORDERED: REQU0.5T PO (00:40)
[2017-03-17] MEDS ORDERED: COUM7.5T PO (00:40)
[2017-03-17] MEDS ORDERED: OMEP20TA PO (00:40)
[2017-03-17] MEDS ORDERED: FERR325T PO (00:42)
[2017-03-17] MEDS ORDERED: SING10TA32 PO (00:42)
[2017-03-17] MEDS ORDERED: INCR1INH INH (00:42)
[2017-03-17] MEDS ORDERED: ONDANSETRON 4 MG ORAL DISINTEGRATING TAB (S0181) PO PRN (02:15)
[2017-03-17] MEDS ORDERED: ALBUTEROL 90 MCG/ACT 8GM HFA INHALER INH PRN (02:15)
[2017-03-17] MEDS: DULoxetine 30 MG CAP (CYMBALTA) PO SCH ×2 (02:44→21:32)
[2017-03-17] MEDS: TEMAZEPAM 15 MG CAP PO SCH ×2 (02:45→21:32)
[2017-03-17] MEDS: TAMSULOSIN 0.4 MG CAP PO SCH ×2 (02:45→21:32)
[2017-03-17] MEDS ORDERED: IPRATROPIUM 0.5MG/ALBUTEROL 2.5MG INH SOL UD 3ML (DUONEB)(J7620) NEB PRN (03:45)
[2017-03-17 04:00] VITALS: BP 134/62
[2017-03-17 05:31] LABS: MEAN CORPUSCULAR HEMOGLOBIN 29.1 pg (27.0-33.0); MEAN CORPUSCULAR HGB CONC 32.6 g/dl (32.0-36.5); MEAN CORPUSCULAR VOLUME 89.2 fl (80.0-96.0); RED CELL DISTRIBUTION WIDTH 12.7 % (11.5-14.5); WHITE BLOOD COUNT 5.2 K/mm3 (4.0-10.0)
--- NOTE | 2017-03-17 05:34 | HPE ---
DATE OF ADMISSION: 03/16/2017 PRIMARY CARE PROVIDER: Briana Alanis. REASON FOR ADMISSION: Shortness of breath. HISTORY OF PRESENT ILLNESS: Patient is a 67-year-old male with past medical history significant for type 2 diabetes, stage III kidney disease, hypertension, hyperlipidemia, benign prostatic hypertrophy (BPH), history of chronic obstructive pulmonary disease (COPD), history of obstructive sleep apnea on continuous positive airway pressure (CPAP), who presented to the emergency room complaining of shortness of breath that has been on-and-off for the past month. States he has been having positive chills and sweats. Denies any cough or fevers. Denies any chest pain or palpitations. No sick contacts. In the emergency room the patient was given one dose of Solu-Medrol 125 mg, as well as a breathing treatment, and his shortness of breath had resolved. However, on blood work the patient was found to have a creatinine of 3.46. His baseline creatinine is around 2.1 to 2.5. The patient was diagnosed with stage IV kidney disease this year. He follows up with Dr. Ramirez. No recent change in medications. He was admitted under hospitalist service for the family practice group for acute kidney injury and shortness of breath. REVIEW OF SYSTEMS: 12-point review of systems was obtained. The patient admits to having an 8-10 pound weight loss over the past two weeks unintentional. He denies any chest pain or palpitations. He has been complaining of shortness of breath on-and-off for the past month. Denies any cough, denies any fevers, denies any nausea or vomiting or any abdominal pain. Denies any increased swelling in the lower extremity. No neurologic deficits. PAST MEDICAL HISTORY: 1. Obstructive sleep apnea on CPAP. 2. COPD. The patient is not normally on oxygen. 3. Type 2 diabetes. 4. Chronic kidney disease stage IV. 5. Hypertension. 6. Hyperlipidemia. 7. Iron deficiency anemia. 8. BPH. 9. Vitamin D deficiency. PAST SURGICAL HISTORY: Significant for esophagogastroduodenoscopy (EGD), colonoscopy, neck fusion in 2002, right carpal tunnel repair. SOCIAL HISTORY: Patient is a former smoker, currently lives at home with his . HOME MEDICATIONS: - albuterol two puffs inhaled every four hours as needed for shortness of breath or wheezes - Norvasc 2.5 mg by mouth daily - Lipitor 40 mg at bedtime - Cymbalta 60 mg at bedtime - iron sulfate 325 by mouth daily - fish oil one capsule by mouth three times a day - Amaryl 4 mg by mouth twice a day - hydrochlorothiazide (HCTZ) 25 mg by mouth daily - insulin 10 units subcutaneously twice a day and 23 units at bedtime - Lantus 10 units in the morning and 24 units at night - Cozaar 100 mg at night - meclizine 25 mg by mouth daily as needed for dizziness - Singulair 10 mg at night - omeprazole 20 mg at night - Zofran 4 mg every four hours as needed for nausea - MiraLax as needed for constipation - Requip 0.5 mg at night - Flomax 0.4 mg at night - Advair Diskus one puff inhaled twice a day - Restoril 30 mg by mouth at night - Coumadin 5 mg Wednesday, Wednesday, and 7.5 Wednesday through Wednesday FAMILY HISTORY: Noncontributory. ALLERGIES: The patient has allergies to MULTIPLE MEDICATIONS; they were all reviewed. PHYSICAL FINDINGS: VITAL SIGNS: Temperature 96.6, pulse 103, respiratory rate 20, blood pressure is 157/67, pulse oximetry 93% on room air. HEENT: Pupils equal, round, reactive to light and accommodation. NECK: Supple. No jugular venous distention (JVD). LUNGS: Clear to auscultation bilaterally. ABDOMEN: Soft, nontender, nondistended. EXTREMITIES: No clubbing, cyanosis or edema. IMAGING: Chest x-ray pending results. LABORATORY FINDINGS: Sodium 133, potassium 4.6, chloride 100, BUN 50, creatinine 3.46, fasting glucose 139. Troponin 0.02. BNP 27.2 WBC 9, , hemoglobin 9, hematocrit 26.4, platelet count 268. INR 3.4. D-dimer 427.1. Point of care glucose 318. ASSESSMENT AND PLAN: 1. Shortness of breath: may be secondary to COPD versus obstructive sleep apnea. Chest x-ray final results pending. We will continue DuoNeb as needed. The patient has no leukocytosis or fever and no reason to suspect an infection. We will hold off on antibiotics. The patient does not have any diffuse wheezes at this time. He already has received a dose of Solu-Medrol 125 mg in the emergency room. We will not continue prednisone at this time. Continue to monitor. 2. Acute kidney injury on chronic kidney disease stage IV. The patient normally follows up with Dr. Ramirez. We will discontinue any nephrotoxic drugs at this time. Repeat labs in the morning. 3. History of hypertension. The patient's blood pressure at this time is controlled in the 120 is over 50s. Will continue to monitor. 4. Hyperlipidemia. Continue the patient's home medication. 5. History of benign prostatic hypertrophy (BPH). 6. History of obstructive sleep apnea. The patient is normally on CPAP machine. We will order CPAP machine from the hospital. does not drive and unable to bring in the patient's home CPAP machine. 7. Chronic obstructive pulmonary disease (COPD). The patient is not normally on any oxygen. He has not been seen by any funeral planner. He was supposed to see Dr. Cheng. He used to see him in the past but stopped seeing him when he refused to do arterial blood gas (ABG) or further testing. In the emergency room the patient refused to let us order an arterial blood gas stating he had it before and he will never have it again. At this time, the patient appears to be oxygenating well. His oxygen saturation is 93% on room air. 8. Deep venous thrombosis (DVT) prophylaxis. Patient is already on Coumadin. We will sign the patient out to Dr. Sunil Bojorquez who will see the patient in the morning.
[2017-03-17 05:38] LABS: INR 3.68
[2017-03-17 05:53] LABS: ALBUMIN 2.3 GM/DL (3.2-5.2); ALBUMIN/GLOBULIN RATIO 0.52 (1.00-1.93); BILIRUBIN,TOTAL 0.3 MG/DL (0.2-1.0); CALCIUM LEVEL 8.3 MG/DL (8.8-10.2); CREATININE FOR GFR 3.86 MG/DL (0.70-1.30); GLOMERULAR FILTRATION RATE 16.7 (>49); MAGNESIUM LEVEL 1.6 MG/DL (1.8-2.4); POTASSIUM SERUM 4.9 MEQ/L (3.5-5.1); TOTAL PROTEIN 6.7 GM/DL (6.4-8.2)
--- NOTE | 2017-03-17 07:34 | REP ---
Clinical: Cough. Dyspnea . Comparison: 10/02/2016 . Technique: PA and lateral. Findings: The mediastinum and cardiac silhouette are normal. The lung melissa are clear and without acute consolidation, effusion, or pneumothorax. The skeletal structures are intact and normal. Impression: 1. No acute cardiopulmonary process. Signed by Ronal Ro MD 03/17/2017 07:26 A
[2017-03-17] MEDS: ADVAIR DISKUS 500/50 INH PWD INH SCH ×2 (07:50→20:09)
[2017-03-17] MEDS: MIRALAX *UNIT DOSE* 17GM PACKET PO PRN (07:58)
[2017-03-17] MEDS: FERROUS SULFATE 325MG TAB PO SCH (07:59)
[2017-03-17] MEDS: FLUTICASONE PROP 0.05% NASAL SPRAY 16 GM (FLONASE) SCH ×2 (07:59→21:33)
[2017-03-17 08:00] VITALS: BP 132/68
[2017-03-17] MEDS: IPRATROPIUM 0.5MG/ALBUTEROL 2.5MG INH SOL UD 3ML (DUONEB)(J7620) NEB SCH ×3 (08:00→20:00)
[2017-03-17] MEDS: HumaLOG INSULIN (NovoLOG) PER UNIT SC SCH ×5 (08:01→21:33)
[2017-03-17] MEDS ORDERED: LEVEMIR (INSULIN DETEMIR) 1 UNITS/0.01ML SC SCH (09:00)
[2017-03-17 12:00] VITALS: BP 140/63
[2017-03-17] MEDS: HumuLIN R (REGULAR) INSULIN (NovoLIN R) **100U/ML** PER UNIT SC ONE (12:30)
[2017-03-17] MEDS ORDERED: HumaLOG INSULIN (NovoLOG) PER UNIT SC ONE (12:45)
--- NOTE | 2017-03-17 14:26 | ECGEPIP ---
Stationary ECG Study [facility] - ED Test Date: 2017-03-16 Pat Name: YOVANI VALLEJO Department: Room: [place] [address] Gender: M Testing Manager: DrakeB: [id number] Requested By: DAJUAN Garrison Order Number: [id number] Reading MD: Tatiana Bustamante Measurements Intervals [place] Rate: 89 P: 35 GA: 167 QRS: 23 QRSD: 102 T: 56 QT: 337 QTc: 411 Interpretive Statements SINUS RHYTHM INCOMPLETE RIGHT BUNDLE BRANCH BLOCK NO PRIOR FOR COMPARISON Electronically Signed On 03-17-2017 14:25:46 EDT by Tatiana Bustamante
--- NOTE | 2017-03-17 15:26 | IPN ---
DATE: 03/17/2017 Nile was seen in PCU. He was admitted with acute renal failure. Apparently he was tachycardic on admission. I cannot find those rhythm strips. Denies any shortness of breath, lower extremity edema, fever or chills. He has taken recent NSAIDs. No dizziness or lightheadedness. He has had decreased urinary output. Blood pressure 140/63, pulse 90, 98 degrees. Alert, conversant. He looks the same as usual. No jugular venous distention (JVD). Lungs: Decreased breath sounds. A few expiratory wheezes in the bases. Heart: Regular rhythm. Abdomen is soft and nontender. No peripheral edema. LABS: White count 5.2, hemoglobin 8, platelets 258. Sodium 129, potassium 4.9. BUN 54, creatinine 3.8, glucose 396. Troponins have been negative repeatedly. IMPRESSION: 1. Acute on chronic renal failure. Etiology is unknown. Suspect he is approaching end-stage renal disease. Dr. Ramirez sees him as outpatient. We have communicated and he will see the patient in consultation. 2. Diabetes. His blood sugar is elevated. Will adjust his insulin doses. He is also on a sliding scale here. 3. Recurrent deep venous thrombosis (DVT). He is on chronic anticoagulant therapy. INR was low. I have increased his warfarin dose. 4. Peripheral neuropathy. Continue current medications. 5. History of dermatitis herpetiformis. Positive skin biopsy 05/03. He used to be on Dapsone. Should be on a gluten-free diet while here as well as at home. 6. Obstructive sleep apnea (GORDON). He is on CPAP, which we will continue. 7. Subclinical hypothyroidism. I have ordered repeat thyroid functions. 8. Hyperlipidemia. Continue his current dose of atorvastatin. 9. Chronic obstructive pulmonary disease (COPD). He a nonsmokder. He used to smoke in the past. He has an appointment to see Dr. Cehng coming up at [facility].
[2017-03-17 15:44] LABS: RETIC HEMOGLOBIN CONTENT CHr 29.5 PG (24-36); RETICULOCYTE ABSOLUTE ADVIA212 51 x10(9)/L (17-77)
[2017-03-17 15:45] LABS: FOLATE 14.9 NG/ML
[2017-03-17 16:00] VITALS: BP 130/59
[2017-03-17] MEDS ORDERED: WARFARIN SOD 7.5 MG TAB PO SCH (17:00)
[2017-03-17] MEDS: ATORVASTATIN 20 MG TAB PO SCH (17:22)
[2017-03-17] MEDS: OMEPRAZOLE 20 MG CAP PO SCH (17:22)
[2017-03-17] MEDS: MONTELUKAST 10 MG TAB PO SCH (17:22)
[2017-03-17] MEDS: rOPINIRole 0.25 MG TAB(REQUIP) PO SCH (17:22)
[2017-03-17 20:00] VITALS: BP 157/67
[2017-03-17] MEDS: LEVEMIR (INSULIN DETEMIR) 1 UNITS/0.01ML SC SCH (21:33)
[2017-03-18 00:38] VITALS: BP 121/60
[2017-03-18] MEDS: IPRATROPIUM 0.5MG/ALBUTEROL 2.5MG INH SOL UD 3ML (DUONEB)(J7620) NEB SCH ×4 (01:48→20:00)
[2017-03-18 05:31] VITALS: BP 119/58
[2017-03-18 06:11] LABS: MEAN CORPUSCULAR HEMOGLOBIN 29.8 pg (27.0-33.0); MEAN CORPUSCULAR HGB CONC 34.3 g/dl (32.0-36.5); MEAN CORPUSCULAR VOLUME 86.7 fl (80.0-96.0); WHITE BLOOD COUNT 14.4 K/mm3 (4.0-10.0)
[2017-03-18 06:26] LABS: INR 5.15
[2017-03-18 06:35] LABS: ALBUMIN 2.4 GM/DL (3.2-5.2); ALBUMIN/GLOBULIN RATIO 0.59 (1.00-1.93); BILIRUBIN,TOTAL 0.2 MG/DL (0.2-1.0); CALCIUM LEVEL 8.6 MG/DL (8.8-10.2); CREATININE FOR GFR 3.86 MG/DL (0.70-1.30); GLOMERULAR FILTRATION RATE 16.7 (>49); MAGNESIUM LEVEL 1.9 MG/DL (1.8-2.4); POTASSIUM SERUM 4.9 MEQ/L (3.5-5.1); TOTAL PROTEIN 6.5 GM/DL (6.4-8.2)
[2017-03-18] MEDS: ADVAIR DISKUS 500/50 INH PWD INH SCH ×2 (07:13→20:14)
[2017-03-18] MEDS: FERROUS SULFATE 325MG TAB PO SCH (08:01)
[2017-03-18] MEDS: HumaLOG INSULIN (NovoLOG) PER UNIT SC SCH ×4 (08:02→21:39)
[2017-03-18] MEDS: LEVEMIR (INSULIN DETEMIR) 1 UNITS/0.01ML SC SCH ×2 (08:03→21:39)
[2017-03-18] MEDS: FLUTICASONE PROP 0.05% NASAL SPRAY 16 GM (FLONASE) SCH ×2 (08:04→21:39)
[2017-03-18 08:16] VITALS: BP 130/60
--- NOTE | 2017-03-18 11:38 | REP ---
Clinical: Acute renal failure. Technique: Real time helms scale ultrasound examination using curved array transducer. Findings: The bilateral kidneys are normal in contour, size, echogenicity and reniform shape without hydronephrosis, nephrolithiasis, or renal mass lesion. Renovascular calcifications are identified along with mildly prominent sinus fat consistent with chronic medical renal disease. Right kidney measures 11.6 x 5.5 x 6.0 cm with 2.1 cm mid pole cyst. Left kidney measures 11.7 x 4.7 x 5.9 cm without cyst. Bladder is under distended currently measuring 4.7 x 3.0 x 2.0 cm. Impression: No evidence for hydronephrosis. Chronic medical renal disease and solitary right renal cyst. Signed by Ronal Ro MD 03/18/2017 11:29 A
[2017-03-18 12:00] VITALS: BP 136/68
[2017-03-18 16:00] VITALS: BP 143/67
[2017-03-18] MEDS: ATORVASTATIN 20 MG TAB PO SCH (17:21)
[2017-03-18] MEDS: OMEPRAZOLE 20 MG CAP PO SCH (17:22)
[2017-03-18] MEDS: rOPINIRole 0.25 MG TAB(REQUIP) PO SCH (17:22)
[2017-03-18] MEDS: MONTELUKAST 10 MG TAB PO SCH (17:22)
[2017-03-18 20:00] VITALS: BP 135/63
--- NOTE | 2017-03-18 21:19 | CR ---
DATE OF CONSULTATION: 03/18/2017 NEPHROLOGY CONSULTATION REPORT FOR: Pedro Bojorquez MD REASON FOR CONSULTATION: Acute renal failure superimposed on chronic kidney disease. HISTORY OF PRESENT ILLNESS: Mr. Castillo is a 67-year-old gentleman with multiple chronic medical problems including a history of type 2 diabetes, hypertension, chronic obstructive pulmonary disease (COPD), obstructive sleep apnea, hyperlipidemia, stage IV of chronic kidney disease and anemia. He is admitted with shortness of breath and noticed to have worsening of kidney function with creatinine up to 3.9 mg/dL. His baseline creatinine is about 2.5. The patient was not felt to be in congestive heart failure and does not have any history suggestive of dehydration. Nephrology consultation was requested and the patient was seen this morning. PAST MEDICAL AND SURGICAL HISTORY: Significant for: 1. Type 2 diabetes. 2. Hypertension. 3. Hyperlipidemia. 4. COPD. 5. Obstructive sleep apnea. 6. BPH. 7. Stage IV of chronic kidney disease. 8. Anemia. 9. Vitamin D deficiency. 10. History of anxiety. 11. Restless leg syndrome. 12. History of deep venous thrombosis (DVT) requiring chronic anticoagulation. Past surgical history is significant for upper and lower endoscopy, cervical vertebral fusion and right carpal tunnel release. MEDICATIONS: His home medications include Norvasc 2.5 mg daily, albuterol two puffs every 4 hours as needed for dyspnea, Lipitor 40 mg daily, Cymbalta 60 mg at bedtime, ferrous sulfate 325 mg daily, fish oil one capsule three times a day, Amaryl 4 mg twice a day, hydrochlorothiazide 25 mg daily, insulin 10 units twice a day and 23 units at bedtime, Lantus insulin 10 units in the morning and 24 units at night, Cozaar 100 mg daily, Singulair 10 mg daily, omeprazole 20 mg daily, Zofran 4 mg as needed for nausea, Requip 0.5 mg at night, Flomax 0.4 mg at bedtime, Advair Diskus one inhalation twice a day, Restoril 30 mg at bedtime, and Coumadin 5 mg on Wednesday and Wednesday and 7.5 mg Wednesday through Wednesday. PERSONAL AND SOCIAL HISTORY: The patient is and lives with his . He stopped smoking recently. FAMILY HISTORY: There is no family history for end-stage renal disease. ALLERGIES: The patient has allergy to multiple medications recorded in his chart. REVIEW OF SYSTEMS: The patient denies any fever or chills. Ears are significant for deafness. Nose and throat are unremarkable. Cardiovascular system significant for shortness of breath but no leg edema. He denies any chest pain or palpitations. Respiratory system is significant for COPD and obstructive sleep apnea. The patient denies any hemoptysis or pleuritic type of chest pain. Gastrointestinal (GI) system is negative for nausea, vomiting or diarrhea. Genitourinary () system is significant for a history of BPH. He denies any dysuria or hematuria. Endocrine system is significant for type 2 diabetes. Hematological system is significant for chronic anemia and anticoagulation. Neurological system is significant for restless leg syndrome. Psychosocial system is significant for anxiety and depression. Skin is negative for rash or ulcers. Musculoskeletal system is significant for chronic back pain and degenerative arthritis. He has used nonsteroidal anti-inflammatory drugs (NSAIDs) up until the recent past. PHYSICAL EXAMINATION: Temperature 97.6 degrees Fahrenheit, heart rate 82 per minute and respiratory rate 18 per minute. Blood pressure 130/60 mmHg and oxygen saturation 96% on room air. Head is atraumatic. Ears, nose and throat are unremarkable. Neck is supple and without jugular venous distention (JVD) or thyroid enlargement. Pupils are equal and reactive to light and sclerae is anicteric. Oral mucosa is moist and healthy and without any thrush or ulcers. Heart sounds are irregular in rhythm. Lungs with moderate bilateral air entry. There is no wheezing or rales at present. Abdomen soft and nontender and without a palpable organomegaly. There is no audible bruit and bowel sounds are normal. Extremities have no cyanosis or clubbing. Skin has no rash or ulcers. Neurologically he is awake, alert and oriented times three. LABORATORY DATA: Today's labs show sodium level 131 and potassium 4.9. BUN 73 and creatinine 3.86. Glucose 248 and calcium 8.6. Yesterday his sodium was 129 and potassium 4.9. BUN was 54 and creatinine 3.86. On admission his BUN was 50 and creatinine 3.46. INR today is 5.15, while yesterday it was 3.68. WBC count is 14.4, hemoglobin 8.4 and hematocrit 24.6. Chest x-ray done on admission showed no acute cardiopulmonary process. PROBLEMS: 1. Acute renal failure superimposed on chronic kidney disease. The patient has baseline serum creatinine of about 2.5 mg/dL with stage IV chronic kidney disease (CKD). Worsening kidney function is probably related to medications as he has used NSAIDs. He does not look dehydrated and his diuretic has already been stopped. He is certainly not in any congestive heart failure at this point. I have already stopped his diuretic and angiotensin receptor feliciano. We will get a renal ultrasound to rule out any possibility of obstruction in view of history of BPH. At this point he does not have any uremic symptoms and there is no emergent indication for dialysis. We will need to monitor his kidney function closely. 2. Hyponatremia, mild and most likely related to renal failure. Sodium level has slightly improved. Diuretic may have contributed to his hyponatremia. His hydrochlorothiazide has already been stopped. 3. Hypertension. Blood pressure seems to be reasonably well-controlled and I agree to stop his angiotensin receptor feliciano. He is currently on low-dose amlodipine alone with good control of blood pressure. 4. Anemia. The patient does have history of anemia previously. Worsening anemia could be related to acute kidney injury. We will also consider giving him iron as he does have significant iron deficiency. We will not give him Aranesp at this point until his iron deficiency is corrected. I thank you for involving me in the care of Mr. Castillo. I will follow him along with you.
[2017-03-18] MEDS: TAMSULOSIN 0.4 MG CAP PO SCH (21:40)
[2017-03-18] MEDS: DULoxetine 30 MG CAP (CYMBALTA) PO SCH (21:40)
[2017-03-18] MEDS: TEMAZEPAM 15 MG CAP PO SCH (21:43)
[2017-03-19] VITALS (8 sets, daily range): BP systolic 109–156; BP diastolic 65–77
[2017-03-19] MEDS: IPRATROPIUM 0.5MG/ALBUTEROL 2.5MG INH SOL UD 3ML (DUONEB)(J7620) NEB SCH ×4 (01:41→20:00)
[2017-03-19 05:37] LABS: MEAN CORPUSCULAR HEMOGLOBIN 29.8 pg (27.0-33.0); MEAN CORPUSCULAR HGB CONC 34.6 g/dl (32.0-36.5); MEAN CORPUSCULAR VOLUME 86.1 fl (80.0-96.0); RED CELL DISTRIBUTION WIDTH 12.9 % (11.5-14.5); WHITE BLOOD COUNT 8.3 K/mm3 (4.0-10.0)
[2017-03-19 05:45] LABS: INR 4.61
[2017-03-19 05:53] LABS: ALBUMIN 2.3 GM/DL (3.2-5.2); ALBUMIN/GLOBULIN RATIO 0.58 (1.00-1.93); BILIRUBIN,TOTAL 0.2 MG/DL (0.2-1.0); CALCIUM LEVEL 8.3 MG/DL (8.8-10.2); CREATININE FOR GFR 3.5 MG/DL (0.70-1.30); GLOMERULAR FILTRATION RATE 18.7 (>49); MAGNESIUM LEVEL 1.9 MG/DL (1.8-2.4); POTASSIUM SERUM 4.4 MEQ/L (3.5-5.1); TOTAL PROTEIN 6.3 GM/DL (6.4-8.2)
[2017-03-19] MEDS: ADVAIR DISKUS 500/50 INH PWD INH SCH ×2 (07:17→20:32)
[2017-03-19] MEDS: HumaLOG INSULIN (NovoLOG) PER UNIT SC SCH ×4 (07:30→20:57)
[2017-03-19] MEDS ORDERED: IRON DEXTRAN INJ 25 MG in NS 50 ML IV ONE (09:00)
--- NOTE | 2017-03-19 09:19 | IPN ---
DATE: 03/18/2017 Nile feels about the same. He is intermittently short of breath at times. His oxygen saturation on room air is 96-97%. He has been seen by Dr. Ramirez. Appreciate his input. We are waiting for his formal consultation. Patient denies any chest pain. Creatinine is about the same as yesterday. Has not returned to his baseline. PHYSICAL EXAM: 130/60, pulse of 82, respirations 18, 96% oxygen saturation on room air. GENERAL APPEARANCE: Alert, conversant. No distress. LUNGS: Have decreased breath sounds; otherwise, clear. HEART: Regular rhythm. ABDOMEN: Soft, nontender. No peripheral edema. LABS: Creatinine 3.8, potassium 4.9, INR is 5.1. Hemoglobin is 8.4. IMPRESSION: 1. Acute on chronic renal failure. Nephrology has been consulted. Appreciate their input. Formal consultation pending. 2. Diabetes. I adjusted his insulin. He is on a sliding scale. 3. Recurrent deep venous thrombosis (DVT). On chronic anticoagulant therapy. INR has been elevated. His warfarin has been held since admission (mistake in dictation yesterday; I dictated that his INR was low, and this was an error). 4. History of dermatitis herpetiformis. Should be on a gluten-free diet. 5. Obstructive sleep apnea (GORDON). Continue CPAP. 6. Chronic obstructive pulmonary disease (COPD). I think that is the basis of most of his shortness of breath.
[2017-03-19] MEDS: FERROUS SULFATE 325MG TAB PO SCH (09:40)
[2017-03-19] MEDS: LEVEMIR (INSULIN DETEMIR) 1 UNITS/0.01ML SC SCH ×2 (09:41→21:02)
[2017-03-19] MEDS: FLUTICASONE PROP 0.05% NASAL SPRAY 16 GM (FLONASE) SCH ×2 (09:41→21:00)
[2017-03-19] MEDS: MIRALAX *UNIT DOSE* 17GM PACKET PO PRN (10:13)
[2017-03-19] MEDS ORDERED: IRON DEXTRAN INJ 975 MG in NS 250 ML IV ONE (10:15)
--- NOTE | 2017-03-19 12:57 | IPN ---
DATE: 03/19/2017 Nile is seen in progressive care unit (PCU). There have been no significant arrhythmias. His international normalized ratio (INR) is coming down. His creatinine is marginally improved, but still not down to his baseline. His baseline creatinine is around 2.0 - 2.2. He is down to 3.5 now. Nephrology has seen him. He is getting an iron infusion. Apparently, he fell last night. He has some leg weakness noted by the staff. EXAMINATION: 144/66, pulse of 87, respirations 18, 94% oxygen saturation. No jugular venous distention (JVD). Lungs: Decreased breath sounds but clear. Heart: Regular rhythm. Abdomen: Soft, nontender. No peripheral edema. LABORATORIES: Creatinine 3.8. Potassium 4.4. Hemoglobin is 8.3. INR is 4.1. IMPRESSION: 1. Acute on chronic renal failure. Appreciate nephrology's involvement. Slightly better today. Discharge plans will depend on their input. 2. Diabetes. Increased Levemir. Still on sliding scale. 3. Recurrent deep venous thrombosis (DVT). INR has been supratherapeutic. Warfarin is on hold. Daily INR has been ordered. 4. Iron deficiency anemia. He is getting an iron infusion today. 5. Dermatitis herpetiformis. I changed his diet to gluten-free. 6. Chronic obstructive pulmonary disease (COPD). I think that was the cause of much of his breathlessness. I do not think it is related to his acute on chronic renal failure.
[2017-03-19] MEDS ORDERED: BUTRANS 20 MCG TOP SCH (13:00)
[2017-03-19] MEDS: ACETAMINOPHEN TAB 650MG DOSE (2X325MG) PO PRN (15:43)
[2017-03-19] MEDS: rOPINIRole 0.25 MG TAB(REQUIP) PO SCH (17:40)
[2017-03-19] MEDS: MONTELUKAST 10 MG TAB PO SCH (17:40)
[2017-03-19] MEDS: OMEPRAZOLE 20 MG CAP PO SCH (17:40)
[2017-03-19] MEDS: ATORVASTATIN 20 MG TAB PO SCH (17:40)
--- NOTE | 2017-03-19 18:01 | IPN ---
DATE: 03/19/2017 SUBJECTIVE: Mr. Castillo is seen this morning on his bedside. His family is present in the room. The patient is feeling better and denies any nausea, vomiting, dyspnea or chest pain. PHYSICAL EXAMINATION: VITAL SIGNS: Temperature 98.1 degrees Fahrenheit, heart is 92 per minute and respiratory rate 18 per minute. Blood pressure 109/72 mmHg and oxygen saturation 94% on room air. Intake and output records from yesterday showed total intake 2600 and output 1000. Total positive fluid balance of about 1600 mL. HEENT: His head is atraumatic. Neck is supple and without jugular venous distention (JVD) or thyroid enlargement. Pupils equal and reactive to light and sclerae are anicteric. Ears, nose and throat are unremarkable. HEART/LUNGS: Heart sounds are regular and lungs with moderate bilateral air entry. There are no rales or wheezing. ABDOMEN: Soft and nontender. EXTREMITIES: Have no cyanosis or clubbing. SKIN: Has no rash or ulcers. NEUROLOGIC: he is awake, alert and oriented times three. LABORATORY DATA: Today's labs show WBC count 8.3, hemoglobin 8.3 and hematocrit 24.0. Sodium 138 and potassium 4.4. BUN 78 and creatinine 3.5. PROBLEMS: 1. Acute renal failure superimposed on chronic kidney disease. The patient had a renal ultrasound done yesterday which did not show any evidence of hydronephrosis. His kidney function has slightly improved. At this point, he did not have any uremic symptoms and we will continue to monitor his kidney function closely. There is no indication for dialysis. His angiotensin receptor feliciano and diuretic have been stopped. 2. Hyponatremia. Sodium level has corrected now and no intervention is indicated. We will keep him off hydrochlorothiazide. 3. Iron deficiency anemia. The patient has been on chronic anticoagulation which probably has contributed to iron deficiency. The patient is receiving one dose of intravenous InFeD 1000 mg today. At this point, no Aranesp has been ordered. 4. Shortness of breath. His volume status is well compensated and dyspnea has improved. This was mostly related to chronic obstructive pulmonary disease (COPD). From renal standpoint, the patient is doing much better and can be transferred out of progressive care unit.
[2017-03-19] MEDS: TEMAZEPAM 15 MG CAP PO SCH (21:01)
[2017-03-19] MEDS: TAMSULOSIN 0.4 MG CAP PO SCH (21:02)
[2017-03-19] MEDS: DULoxetine 30 MG CAP (CYMBALTA) PO SCH (21:02)
[2017-03-20] MEDS: IPRATROPIUM 0.5MG/ALBUTEROL 2.5MG INH SOL UD 3ML (DUONEB)(J7620) NEB SCH ×4 (01:32→20:00)
[2017-03-20 02:00] VITALS: BP 155/77
[2017-03-20 05:59] LABS: MEAN CORPUSCULAR HEMOGLOBIN 30.1 pg (27.0-33.0); MEAN CORPUSCULAR HGB CONC 34.7 g/dl (32.0-36.5); MEAN CORPUSCULAR VOLUME 86.9 fl (80.0-96.0); RED CELL DISTRIBUTION WIDTH 13.1 % (11.5-14.5)
[2017-03-20 06:00] VITALS: BP 128/60
[2017-03-20 06:05] LABS: INR 2.62
[2017-03-20 06:24] LABS: ALKALINE PHOSPHATASE 83 U/L (45-117); AST/SGOT 18 U/L (15-37); BILIRUBIN,TOTAL 0.2 MG/DL (0.2-1.0); BLOOD UREA NITROGEN 68 MG/DL (7-18); CALCIUM LEVEL 8.5 MG/DL (8.8-10.2); CARBON DIOXIDE LEVEL 22 MEQ/L (21-32); CHLORIDE LEVEL 107 MEQ/L (98-107); CREATININE FOR GFR 2.88 MG/DL (0.70-1.30); GLUCOSE, FASTING 205 MG/DL (80-110); POTASSIUM SERUM 4.7 MEQ/L (3.5-5.1)
[2017-03-20 06:32] LABS: ALT/SGPT 28 U/L (12-78)
[2017-03-20 07:38] LABS: ANION GAP 8 MEQ/L (8-16); SODIUM LEVEL 137 MEQ/L (136-145)
[2017-03-20] MEDS: ADVAIR DISKUS 500/50 INH PWD INH SCH ×2 (08:14→20:02)
[2017-03-20] MEDS: HumaLOG INSULIN (NovoLOG) PER UNIT SC SCH ×4 (08:36→21:00)
[2017-03-20] MEDS: FERROUS SULFATE 325MG TAB PO SCH (08:36)
[2017-03-20] MEDS: LEVEMIR (INSULIN DETEMIR) 1 UNITS/0.01ML SC SCH ×2 (08:37→21:00)
[2017-03-20] MEDS: FLUTICASONE PROP 0.05% NASAL SPRAY 16 GM (FLONASE) SCH ×2 (08:38→22:20)
[2017-03-20] MEDS ORDERED: MIRALAX *UNIT DOSE* 17GM PACKET PO SCH (09:00)
[2017-03-20 09:11] LABS: ALBUMIN 2.4 GM/DL (3.2-5.2); ALBUMIN/GLOBULIN RATIO 0.67 (1.00-1.93)
[2017-03-20 10:00] VITALS: BP 135/64
[2017-03-20 12:00] VITALS: BP 157/75
--- NOTE | 2017-03-20 12:36 | IPN ---
DATE: 03/20/2017 Nile feels a little better today. His renal function has improved. He was seen by nephrology. I reviewed their note. He tolerated his iron infusion without any difficulty. PHYSICAL EXAMINATION: Vital signs stable. Oxygen saturation 94% on room air. No jugular venous distention (JVD). Lungs decreased breath sounds. Heart regular rhythm. Abdomen soft, nontender. No peripheral edema. LABORATORIES: Creatinine is down to 2.8. INR is down to 2.6. PLAN: He probably could be discharged in the next day or two. I will wait for nephrology's input on this. His hyponatremia is resolved. He received some iron. His shortness of breath is chronic and probably related to his chronic obstructive pulmonary disease (COPD). We are still holding his warfarin. This will probably be restarted tomorrow based upon his INR.
[2017-03-20] MEDS ORDERED: WARFARIN SOD 5 MG TAB PO SCH (17:00)
[2017-03-20] MEDS: MONTELUKAST 10 MG TAB PO SCH (17:17)
[2017-03-20] MEDS: rOPINIRole 0.25 MG TAB(REQUIP) PO SCH (17:17)
[2017-03-20] MEDS: OMEPRAZOLE 20 MG CAP PO SCH (17:17)
[2017-03-20] MEDS: ATORVASTATIN 20 MG TAB PO SCH (17:17)
[2017-03-20 18:00] VITALS: BP 142/66
[2017-03-20] MEDS: TAMSULOSIN 0.4 MG CAP PO SCH (21:45)
[2017-03-20] MEDS: DULoxetine 30 MG CAP (CYMBALTA) PO SCH (21:46)
[2017-03-20] MEDS: TEMAZEPAM 15 MG CAP PO SCH (21:46)
[2017-03-20] MEDS: MIRALAX *UNIT DOSE* 17GM PACKET PO SCH (21:47)
--- NOTE | 2017-03-20 23:06 | IPN ---
DATE: 03/20/2017 SUBJECTIVE: The patient was seen and examined at the bedside today in the morning. His was also present at the bedside. The patient was sleeping. His renal function is significantly getting better. His creatinine is down to 2.8. The patient is hemodynamically stable. The patient was easily arousable. He denies any active complaints at this time. However, the patient's is complaining that he is more sleepy as compared with yesterday. REVIEW OF SYSTEMS: The patient denies any fevers, chills, rigors, headaches, nausea, vomiting, chest pain, shortness of breath, pain abdomen, constipation, or diarrhea. Rest of review of systems is negative. OBJECTIVE: VITAL SIGNS: Temperature is 98.1 degrees Fahrenheit, blood pressure is 157/75, pulse is 88, respiratory rate of 18, saturating 94% on room air. INTAKE AND OUTPUT: Urine output recorded as one liter yesterday. There is no urine output recorded today. He had two voids so far. Weight in the bed scale is not available. PHYSICAL EXAMINATION: GENERAL: The patient is awake and oriented times three in no apparent distress. HEAD/NECK: Extraocular muscles intact. Pupils equal, round, and reactive to light. Mucous membranes are moist. Neck is supple. There is no jugular venous distention (JVD). CARDIOVASCULAR: S1, S2. Regular rate. No murmur, rub, or gallop. RESPIRATORY: Chest is clear to auscultation bilaterally. Bilateral equal air entry. No rales or rhonchi. ABDOMEN: Soft. Positive bowel sounds. Nontender. No ascites. No organomegaly. EXTREMITIES: No clubbing or cyanosis. Pulses are 2+. NEUROLOGIC: No focal neurological deficit. Power is 5/5 in all extremities. LABORATORY DATA: CBC showed WBC 7, hemoglobin 8.9, it was 8.3 yesterday. Platelets are 325. BMP showed sodium 137, potassium 4.7, chloride 107, bicarbonate 22, BUN 68, creatinine 2.8, it was 3.5 yesterday. Magnesium is 8.5. Albumin is 2.4. CURRENT MEDICATIONS: The patient's current medications were all reviewed by me. His warfarin is on hold at this time. There is no other change in medications today as compared with yesterday, except that he was given a dose of MiraLax. ASSESSMENT: 67-year-old male with acute kidney injury superimposed on chronic kidney disease, anemia and hypertension, along with hyponatremia. PLAN: 1. Acute kidney injury superimposed on chronic kidney disease: Looking at patient's baseline creatinine from previous admission, his baseline creatinine is around 2.2. The patient's renal function continues to improve. His creatinine is 2.8 today. Continue to hold the angiotension-converting enzyme (CHRIS) inhibitors and angiotensin receptor blockers. Continue to hold diuretics at this time. 2. Hyponatremia. Hyponatremia has improved now. His sodium is 137 at this time. The patient should not receive thiazide diuretics at this time. 3. Hypertension. The patient's blood pressure is slightly elevated at this time. His losartan was stopped. He is currently on amlodipine 2.5 mg by mouth daily. I am going to increase the amlodipine to 5 mg by mouth daily. 4. Iron-deficiency anemia. The patient was given a dose of iron dextran 1 gram yesterday. His hemoglobin is responding well to iron infusion. It has come up to 8.9. No need of blood transfusion or Aranesp administration at this time. 5. Discharge planning: The patient's renal function should hopefully come down to his baseline by tomorrow. If patient remains hemodynamically stable, then he should be able to be discharge within the next one or two days.
[2017-03-21 02:00] VITALS: BP 144/68
[2017-03-21] MEDS: IPRATROPIUM 0.5MG/ALBUTEROL 2.5MG INH SOL UD 3ML (DUONEB)(J7620) NEB SCH ×4 (02:00→20:00)
[2017-03-21 06:00] VITALS: BP 150/72
[2017-03-21 06:24] LABS: ALBUMIN 2.4 GM/DL (3.2-5.2); ALBUMIN/GLOBULIN RATIO 0.6 (1.00-1.93); BILIRUBIN,TOTAL 0.3 MG/DL (0.2-1.0); CALCIUM LEVEL 8.8 MG/DL (8.8-10.2); CREATININE FOR GFR 2.71 MG/DL (0.70-1.30); GLOMERULAR FILTRATION RATE 25.2 (>49); POTASSIUM SERUM 4.6 MEQ/L (3.5-5.1); TOTAL PROTEIN 6.4 GM/DL (6.4-8.2)
[2017-03-21 06:26] LABS: INR 1.58
[2017-03-21 06:35] LABS: MEAN CORPUSCULAR HEMOGLOBIN 29.2 pg (27.0-33.0); MEAN CORPUSCULAR HGB CONC 33.5 g/dl (32.0-36.5); MEAN CORPUSCULAR VOLUME 87.2 fl (80.0-96.0); RED CELL DISTRIBUTION WIDTH 13.2 % (11.5-14.5); WHITE BLOOD COUNT 8.7 K/mm3 (4.0-10.0)
[2017-03-21] MEDS: ADVAIR DISKUS 500/50 INH PWD INH SCH ×2 (07:42→20:27)
[2017-03-21] MEDS: HumaLOG INSULIN (NovoLOG) PER UNIT SC SCH ×4 (07:58→21:12)
[2017-03-21] MEDS: LEVEMIR (INSULIN DETEMIR) 1 UNITS/0.01ML SC SCH ×2 (09:00→21:11)
[2017-03-21] MEDS: FERROUS SULFATE 325MG TAB PO SCH (09:48)
[2017-03-21] MEDS: MIRALAX *UNIT DOSE* 17GM PACKET PO SCH ×2 (09:48→21:10)
[2017-03-21] MEDS: FLUTICASONE PROP 0.05% NASAL SPRAY 16 GM (FLONASE) SCH ×2 (09:48→21:10)
[2017-03-21 10:00] VITALS: BP 147/68
--- NOTE | 2017-03-21 10:56 | IPN ---
DATE OF SERVICE: 03/21/2017 Nile is still dyspneic with exertion, a complaint that led to his admission, which I think is unlikely to improve. He has chronic obstructive pulmonary disease (COPD), deconditioning, chronic renal failure. His renal function has improved. Creatinine is slowly drifting down. It is down to 2.7. Anemia is improving after the iron infusion. Hemoglobin is up to 9.6. No orthopnea or paroxysmal nocturnal dyspnea (PND). PHYSICAL EXAMINATION: 96% oxygen (O2) saturation on room air, 150/72, pulse 100, respiratory rate 18, 100.1 degrees. General appearance: Resting comfortably, in no distress. No jugular venous distention (JVD). Lungs decreased breath sounds but clear. Heart: Regular rate and rhythm. Abdomen soft, nontender. No peripheral edema. LABORATORIES: Hemoglobin 9.6, creatinine 2.7. IMPRESSION: 1. Acute on chronic renal failure. Appreciate nephrology's involvement. Creatinine continues to slowly improve. He might be able to be discharged tomorrow. We need to sort out his medications on discharge before then and will wait for nephrology's input on this. 2. Diabetes. He had a hypoglycemic spell. I put him on a gluten-free diet, as he has dermatitis herpetiformis. His order detailer told him he did not need to follow that diet anymore, so at his request, I am stopping the gluten-free aspect. Hopefully, he will not have recurrent hypoglycemia. 3. Iron-deficiency anemia. He had an iron infusion. 4. Chronic obstructive pulmonary disease (COPD), chronic. He has an appointment to followup with [facility]. Will check his O2 saturation at rest and in walking tomorrow. 5. Recurrent deep venous thrombosis (DVT). International normalized ratio (INR) is down to 1.58. Therefore, will be restarting his warfarin today. He has a followup INR ordered for tomorrow.
[2017-03-21] MEDS: amLODIPine 5 MG TAB PO SCH (12:32)
[2017-03-21 14:00] VITALS: BP 151/70
[2017-03-21] MEDS ORDERED: WARFARIN SOD 5 MG TAB PO SCH (17:00)
[2017-03-21] MEDS: rOPINIRole 0.25 MG TAB(REQUIP) PO SCH (17:10)
[2017-03-21] MEDS: OMEPRAZOLE 20 MG CAP PO SCH (17:10)
[2017-03-21] MEDS: ATORVASTATIN 20 MG TAB PO SCH (17:10)
[2017-03-21] MEDS: MONTELUKAST 10 MG TAB PO SCH (17:11)
[2017-03-21 18:00] VITALS: BP 141/66
[2017-03-21] MEDS: TAMSULOSIN 0.4 MG CAP PO SCH (21:10)
[2017-03-21] MEDS: TEMAZEPAM 15 MG CAP PO SCH (21:10)
[2017-03-21] MEDS: DULoxetine 30 MG CAP (CYMBALTA) PO SCH (21:11)
[2017-03-21 22:00] VITALS: BP 160/72
--- NOTE | 2017-03-21 22:32 | IPN ---
DATE: 03/21/2017 SUBJECTIVE: The patient was seen and examined at the bedside today in the morning. He was lying in the bed. His renal function continues to improve. His creatinine is down to 2.7 now. He is afebrile and hemodynamically stable. The patient reports mild shortness of breath when he walks. REVIEW OF SYSTEMS: The patient denies any fevers, chills, rigors, headaches, nausea, vomiting, chest pain. He does report that he is short of breath when he walks around and he reports weakness. He denies any pain in the abdomen, constipation or diarrhea. Rest of review of systems is negative. OBJECTIVE: VITAL SIGNS: Temperature is 98.7 degrees Fahrenheit, blood pressure is 151/70, pulse is 106, respiratory rate of 18, saturating 93% on room air. INTAKE AND OUTPUT: Urine output is not recorded at this time. The patient had four voids since overnight. Weight in the bed scale is not available. PHYSICAL EXAMINATION: GENERAL: The patient is awake and oriented times three, lying in bed, in no apparent distress. HEAD/NECK: Extraocular muscles intact. Pupils equal, round, and reactive to light. Neck is supple. There is no jugular venous distention (JVD). CARDIOVASCULAR: S1, S2. Regular rate. No murmur, rub, or gallop. RESPIRATORY: Chest is clear to auscultation bilaterally. Bilateral equal air entry. No rales or rhonchi. ABDOMEN: Soft. Positive bowel sounds. Nontender. No ascites. No organomegaly. EXTREMITIES: No clubbing or cyanosis. Pulses are 2+. NEUROLOGIC: No focal neurological deficit. Power is 5/5 in all extremities. LABORATORY DATA: Complete blood count (CBC) showed WBC 8.7, hemoglobin 9.6, platelets of 365. Basic metabolic panel (BMP) showed sodium 137, potassium 4.6, chloride 106, bicarbonate 24, BUN 60, creatinine 2.7, calcium is 8.8, albumin 2.4. CURRENT MEDICATIONS: The patient's current medications were all reviewed by me. His amlodipine was changed to 5 mg by mouth daily. There are no other changes in the medications today as compared with yesterday. ASSESSMENT: 67-year-old male with acute kidney injury superimposed on chronic kidney disease, anemia, hypertension, along with hyponatremia on admission. PLAN: 1. Acute kidney injury superimposed on chronic kidney disease. The patient's baseline creatinine is around 2.2. His renal function is improving. Creatinine is now 2.7 today. Continue to monitor for improvement of kidney function. 2. Hypertension. The patient's blood pressure was still high yesterda. His amlodipine has been increased to 5 mg by mouth daily. If his blood pressure remains high by tomorrow as well, then low dose of Bystolic can be added. This will cover his slight tachycardia as well. 3. Iron-deficiency anemia. The patient was given IV iron. Hemoglobin is gradually improving. It is 9.6 today. Continue to monitor for now. 4. Discharge planning. It is okay to discharge the patient from a nephrology standpoint tomorrow morning. He can followup with nephrology as an outpatient and medications will be adjusted as needed.
[2017-03-22] MEDS: IPRATROPIUM 0.5MG/ALBUTEROL 2.5MG INH SOL UD 3ML (DUONEB)(J7620) NEB SCH ×4 (02:00→18:16)
[2017-03-22 06:00] VITALS: BP 127/57
[2017-03-22 06:08] LABS: MEAN CORPUSCULAR HEMOGLOBIN 29.3 pg (27.0-33.0); MEAN CORPUSCULAR HGB CONC 33.5 g/dl (32.0-36.5); MEAN CORPUSCULAR VOLUME 87.4 fl (80.0-96.0)
[2017-03-22 06:10] LABS: INR 1.22
[2017-03-22 06:27] LABS: ALBUMIN 2.2 GM/DL (3.2-5.2); ALBUMIN/GLOBULIN RATIO 0.58 (1.00-1.93); BILIRUBIN,TOTAL 0.3 MG/DL (0.2-1.0); CALCIUM LEVEL 8.5 MG/DL (8.8-10.2); CREATININE FOR GFR 2.79 MG/DL (0.70-1.30); GLOMERULAR FILTRATION RATE 24.4 (>49); POTASSIUM SERUM 4.8 MEQ/L (3.5-5.1)
[2017-03-22] MEDS: FERROUS SULFATE 325MG TAB PO SCH (07:47)
[2017-03-22] MEDS: MIRALAX *UNIT DOSE* 17GM PACKET PO SCH ×2 (07:47→21:22)
[2017-03-22] MEDS: ADVAIR DISKUS 500/50 INH PWD INH SCH ×3 (07:47→18:16)
[2017-03-22] MEDS: FLUTICASONE PROP 0.05% NASAL SPRAY 16 GM (FLONASE) SCH ×2 (07:48→21:24)
[2017-03-22] MEDS: HumaLOG INSULIN (NovoLOG) PER UNIT SC SCH ×4 (07:48→21:24)
[2017-03-22] MEDS: LEVEMIR (INSULIN DETEMIR) 1 UNITS/0.01ML SC SCH ×2 (07:48→21:24)
--- NOTE | 2017-03-22 09:50 | IPNPDOC ---
Subjective Date Seen The patient was seen on 03/22/17. Subjective Chief Complaint/HPI The patient is a 67-year-old male admitted with a reason for visit of Acute Kidney Injury. Events since last encounter No complaints other than baseline WLIEY Constitutional: Denies: Chills, Fever Pulmonary: Reports: Dyspnea (mild Wiley at baseline), Denies: Cough Cardiovascular: Denies: Chest Pain, Palpitations Gastrointestinal: Denies: Nausea, Vomiting, Abdominal Pain, Diarrhea, Constipation Objective Physical Examination General Exam: Positive: Alert, No Acute Distress Chest Exam: Positive: Clear to auscultation Heart Exam: Positive: Rate Normal, Regular Rhythm Abdomen Exam: Positive: Normal bowel sounds, Soft, Negative: Tenderness Extremity Exam: Negative: Edema Assessment /Plan Problems (1) Recurrent deep vein thrombosis (DVT) Status: Chronic Response to Treatment: Stable Problem Text: Coumadin was held on admission due to supratherapeutic INR. Restarted yesterday at 5 mg dose but INR has fallen to 1.2 today. Start Lovenox bridge at renal dose (1mg/kg q 24h) Give Coumadin 7.5 mg daily until therapeutic then d/c Lovenox and send patient home (2) Acute kidney injury Status: Acute Response to Treatment: Improving Problem Text: Nephrology following - renal function improving toward baseline (3) Anemia Status: Acute Response to Treatment: Worse Problem Text: Acute on chronic iron def anemia. Got iron infusion 2 days ago with improvement of Hgb, but hgb fell today from 9.6 to 8.6. Monitor trend (4) HTN (hypertension) Status: Chronic Response to Treatment: Improving Problem Text: amlodipine increased yesterday by nephrology - BP better this am. (5) Diabetes type 2, uncontrolled Status: Chronic Problem Text: Blood sugars variable. continue Levemir BID Plan/VTE VTE Prophylaxis Ordered?: Yes Disposition d/c home once INR therapeutic VS, I&O, 24H, Fishbone Vital Signs/I&O Vital Signs Date Time Temp Pulse Resp B/P (MAP) Pulse Ox O2 Delivery O2 Flow Rate FiO2 03/22/17 08:00 99 03/22/17 06:00 98.8 17 127/57 (80) 96 Room Air 03/17/17 02:00 21 I&O- Last 24 Hours up to 6 AM 03/22/17 06:00 Intake Total 1380 ml Output Total 0 ml Balance 1380 ml Laboratory Data 24H LABS Laboratory Tests 2 03/21/17 11:33: Bedside Glucose (Misc Panel) 259H 03/21/17 16:39: Bedside Glucose (Misc Panel) 346H 03/21/17 20:19: Bedside Glucose (Misc Panel) 287H 03/22/17 05:34: Prothrombin Time 15.5H, Prothromb Time International Ratio 1.22, Anion Gap 7L, Glomerular Filtration Rate 24.4L, Blood Urea Nitrogen 55H, Creatinine 2.79H, Sodium Level 135L, Potassium Level 4.8, Chloride Level 106, Carbon Dioxide Level 22, Calcium Level 8.5L, Aspartate Amino Transf (AST/SGOT) 12L, Alanine Aminotransferase (ALT/SGPT) 22, Alkaline Phosphatase 74, Total Bilirubin 0.3, Total Protein 6.0L, Albumin 2.2L, Albumin/Globulin Ratio 0.58L CBC/BMP Laboratory Tests 03/22/17 05:34 Red Blood Count 2.93 L, Mean Corpuscular Volume 87.4, Mean Corpuscular Hemoglobin 29.3, Mean Corpuscular Hemoglobin Concent 33.5, Red Cell Distribution Width 13.0, Calcium Level 8.5 L, Aspartate Amino Transf (AST/SGOT) 12 L, Alanine Aminotransferase (ALT/SGPT) 22, Alkaline Phosphatase 74, Total Bilirubin 0.3, Total Protein 6.0 L, Albumin 2.2 L TRES GONG PA-C March 22, 2017 09:50
[2017-03-22 10:00] VITALS: BP 139/65
[2017-03-22] MEDS: ENOXAPARIN 100MG/1ML SYRINGE (J1650) SC SCH (10:21)
[2017-03-22] MEDS: amLODIPine 5 MG TAB PO SCH (11:45)
[2017-03-22 14:00] VITALS: BP 137/64
--- NOTE | 2017-03-22 16:19 | IPN ---
DATE: 03/22/2017 SUBJECTIVE: The patient was seen and examined at the bedside today in the morning. He was actually sitting in the sofa. He is much more awake and alert today. He is afebrile and hemodynamically stable however his hemoglobin has dropped from 9.6 to 8.6 today. His renal function is stable. Creatinine is stable at 2.7 at this time. REVIEW OF SYSTEMS: The patient denies any fevers, chills, rigors, headaches, nausea, vomiting, chest pain, shortness of breath, pain abdomen, constipation or diarrhea. Rest of review of systems is negative. OBJECTIVE: VITAL SIGNS: Temperature is 98.8 degrees Fahrenheit, blood pressure 127/57, pulse is 91, respiratory rate of 17, saturating 96% on room air. INTAKE AND OUTPUT: Urine output is not recorded. He had seven voids yesterday, five voids so far today. Weight in the bed scale is not available at this time. PHYSICAL EXAMINATION: GENERAL: The patient is awake and oriented times three, sitting in the sofa, in no apparent distress. HEAD/NECK: Extraocular muscles intact. Pupils equal, round, and reactive to light. Neck is supple. There is no jugular venous distention (JVD). CARDIOVASCULAR: S1, S2. Regular rate. No murmur, rub, or gallop. RESPIRATORY: Chest is clear to auscultation bilaterally. Bilateral equal air entry. No rales or rhonchi. ABDOMEN: Soft. Positive bowel sounds. Nontender. No ascites. No organomegaly. EXTREMITIES: No clubbing or cyanosis. Pulses are 2+. NEUROLOGIC: No focal neurological deficit. Power is 5/5 in all extremities. LABORATORY DATA: Complete blood count (CBC) showed WBC 9, hemoglobin 8.6, platelets of 336. Basic metabolic panel (BMP) showed sodium 135, potassium 4.8, chloride 106, bicarbonate 22, BUN 55, creatinine 2.7, calcium is 8.5, albumin 2.2. CURRENT MEDICATIONS: The patient's current medications were all reviewed by me. He is currently on Lovenox 100 mg subcu daily. His Coumadin dose has been changed to 5 mg by mouth daily. There is no other changes in the medications today as compared with yesterday. ASSESSMENT: 67-year-old male with acute kidney injury superimposed on chronic kidney disease, anemia and hypertension. PLAN: 1. Acute kidney injury superimposed on chronic kidney disease. The patient's baseline creatinine is 2.2. His creatinine now is fluctuating around 2.7 Continue to encourage oral hydration at this time. Nephrotoxic medications are already on hold. Continue to monitor for renal improvement at this time. 2. Hypertension. The patient's blood is acceptable at this time. Patient's amlodipine dose was increased to 5 mg by mouth daily. Avoid the espojhkrtvh-ikfsuplcum-ayxioo (CHRIS) inhibitor or angiotensin receptor blockers at this time. 3. Iron-deficiency anemia. The patient's hemoglobin has dropped from 9.6 to 8.6. Monitor for now. No need for blood transfusion at this time. If hemoglobin drops further then we need to work up for GI bleeding. 4. Low grade temperature spikes. If patient spikes a fever then we will need to due the blood cultures and urine cultures and start the patient empirically on antibiotics. The rest of the management is per primary team. 5. Discharge planning. Patient's hemoglobin has dropped. He is not stable to be discharged at this time.
[2017-03-22] MEDS: rOPINIRole 0.25 MG TAB(REQUIP) PO SCH (17:27)
[2017-03-22] MEDS: WARFARIN SOD 7.5 MG TAB PO SCH (17:27)
[2017-03-22] MEDS: ATORVASTATIN 20 MG TAB PO SCH (17:27)
[2017-03-22] MEDS: MONTELUKAST 10 MG TAB PO SCH (17:27)
[2017-03-22] MEDS: OMEPRAZOLE 20 MG CAP PO SCH (17:27)
[2017-03-22 18:00] VITALS: BP 162/52
[2017-03-22] MEDS: TEMAZEPAM 15 MG CAP PO SCH (21:23)
[2017-03-22] MEDS: TAMSULOSIN 0.4 MG CAP PO SCH (21:23)
[2017-03-22] MEDS: DULoxetine 30 MG CAP (CYMBALTA) PO SCH (21:23)
[2017-03-22 22:00] VITALS: BP 150/58
[2017-03-23 02:00] VITALS: BP 127/58
[2017-03-23] MEDS: IPRATROPIUM 0.5MG/ALBUTEROL 2.5MG INH SOL UD 3ML (DUONEB)(J7620) NEB SCH ×4 (02:00→18:38)
[2017-03-23 06:00] VITALS: BP 133/70
[2017-03-23 06:11] LABS: MEAN CORPUSCULAR HEMOGLOBIN 29.6 pg (27.0-33.0); MEAN CORPUSCULAR HGB CONC 34.1 g/dl (32.0-36.5); MEAN CORPUSCULAR VOLUME 86.9 fl (80.0-96.0); RED CELL DISTRIBUTION WIDTH 13.5 % (11.5-14.5)
[2017-03-23 06:20] LABS: INR 1.35
[2017-03-23 06:27] LABS: ALBUMIN 2.2 GM/DL (3.2-5.2); ALBUMIN/GLOBULIN RATIO 0.58 (1.00-1.93); BILIRUBIN,TOTAL 0.3 MG/DL (0.2-1.0); CALCIUM LEVEL 8.2 MG/DL (8.8-10.2); CREATININE FOR GFR 2.67 MG/DL (0.70-1.30); GLOMERULAR FILTRATION RATE 25.6 (>49); POTASSIUM SERUM 4.6 MEQ/L (3.5-5.1)
[2017-03-23] MEDS: ADVAIR DISKUS 500/50 INH PWD INH SCH ×2 (07:40→20:30)
[2017-03-23] MEDS: HumaLOG INSULIN (NovoLOG) PER UNIT SC SCH ×4 (08:58→21:00)
[2017-03-23] MEDS: MIRALAX *UNIT DOSE* 17GM PACKET PO SCH ×2 (08:58→21:18)
[2017-03-23] MEDS: FLUTICASONE PROP 0.05% NASAL SPRAY 16 GM (FLONASE) SCH ×2 (08:59→21:18)
[2017-03-23] MEDS: ENOXAPARIN 100MG/1ML SYRINGE (J1650) SC SCH (08:59)
[2017-03-23] MEDS: LEVEMIR (INSULIN DETEMIR) 1 UNITS/0.01ML SC SCH ×2 (08:59→21:18)
[2017-03-23] MEDS: FERROUS SULFATE 325MG TAB PO SCH (09:00)
[2017-03-23 10:00] VITALS: BP 143/65
--- NOTE | 2017-03-23 10:41 | IPNPDOC ---
Subjective Date Seen The patient was seen on 03/23/17. Subjective Chief Complaint/HPI The patient is a 67-year-old male admitted with a reason for visit of Acute Kidney Injury. Events since last encounter Pts and dgt are at bedside. They report that the pt is feeling depressed bc he misses his dog. He is feeling better. General: Denies: Fatigue Constitutional: Denies: Chills, Fever Pulmonary: Denies: Dyspnea, Cough Cardiovascular: Denies: Chest Pain, Palpitations Gastrointestinal: Denies: Nausea, Vomiting, Diarrhea Neurological: Reports: Weakness Psych: Reports: Depression Objective Physical Examination General Exam: Positive: Alert, No Acute Distress Chest Exam: Positive: Clear to auscultation Heart Exam: Positive: Rate Normal, Regular Rhythm Abdomen Exam: Positive: Normal bowel sounds, Soft, Negative: Tenderness Extremity Exam: Negative: Edema Assessment /Plan Problems (1) Recurrent deep vein thrombosis (DVT) Status: Chronic Response to Treatment: Stable Problem Text: 03/23 - INR 1.35 today, Coumadin 7.]5 mg to be given today. Cont with Lovenox until therapeutic. D/c home when therapeutic. 03/22 Coumadin was held on admission due to supratherapeutic INR. Restarted yesterday at 5 mg dose but INR has fallen to 1.2 today. Start Lovenox bridge at renal dose (1mg/kg q 24h) Give Coumadin 7.5 mg daily until therapeutic then d/c Lovenox and send patient home (2) Acute kidney injury Status: Acute Response to Treatment: Improving Problem Text: baseline cr low-mid 2s 03/23 - Nephrology cont to follow, renal function cont to improve. CHRIS/ARB held. outpt Nephr f/u recommended. 03/22 Nephrology following - renal function improving toward baseline (3) Anemia Status: Acute Response to Treatment: Worse Problem Text: 2 CKD/Fe def-baseline hgb 9 03/23 - Hgb down from 8.6 to 8.4, cont to monitor, check HO 03/16/17 9%; therefore, Fe dextran 1 gm given (4) HTN (hypertension) Status: Chronic Response to Treatment: Improving Problem Text: amlodipine increased 03/22 by nephrology - BP improved. (5) Diabetes type 2, uncontrolled Status: Chronic Problem Text: Blood sugars variable. continue Levemir BID Plan/VTE VTE Prophylaxis Ordered?: Yes VS, I&O, 24H, [facility] Vital Signs/I&O Vital Signs Date Time Temp Pulse Resp B/P (MAP) Pulse Ox O2 Delivery O2 Flow Rate FiO2 03/23/17 06:00 98.9 99 17 133/70 (91) 95 NIPPV (BIPAP/CPAP) 03/17/17 02:00 21 I&O- Last 24 Hours up to 6 AM 03/23/17 06:00 Intake Total 1500 ml Output Total 0 ml Balance 1500 ml Laboratory Data 24H LABS Laboratory Tests 2 03/22/17 11:35: Bedside Glucose (Misc Panel) 429H 03/22/17 16:37: Bedside Glucose (Misc Panel) 187H 03/22/17 20:44: Bedside Glucose (Misc Panel) 368H 03/23/17 05:46: Prothrombin Time 16.8H, Prothromb Time International Ratio 1.35, Anion Gap 8, Glomerular Filtration Rate 25.6L, Blood Urea Nitrogen 52H, Creatinine 2.67H, Sodium Level 134L, Potassium Level 4.6, Chloride Level 104, Carbon Dioxide Level 22, Calcium Level 8.2L, Aspartate Amino Transf (AST/SGOT) 11L, Alanine Aminotransferase (ALT/SGPT) 21, Alkaline Phosphatase 71, Total Bilirubin 0.3, Total Protein 6.0L, Albumin 2.2L, Albumin/Globulin Ratio 0.58L CBC/BMP Laboratory Tests 03/23/17 05:46 Red Blood Count 2.85 L, Mean Corpuscular Volume 86.9, Mean Corpuscular Hemoglobin 29.6, Mean Corpuscular Hemoglobin Concent 34.1, Red Cell Distribution Width 13.5, Calcium Level 8.2 L, Aspartate Amino Transf (AST/SGOT) 11 L, Alanine Aminotransferase (ALT/SGPT) 21, Alkaline Phosphatase 71, Total Bilirubin 0.3, Total Protein 6.0 L, Albumin 2.2 L JOANNA PARRISH PA-C March 23, 2017 10:41 Jaden Palacio M.D. March 23, 2017 16:32
--- NOTE | 2017-03-23 11:06 | IPN ---
DATE: 03/23/2017 SUBJECTIVE: The patient was seen and examined at the bedside today in the morning. The patient does not have any active complaints at this time. His renal function continues to improve. Creatinine is down to 2.6; however, his sodium is slightly worse. It is 134 today. REVIEW OF SYSTEMS: The patient denies any fevers, chills, rigors, headaches, nausea, vomiting, chest pain. He does report mild shortness of breath on exertion. He denies any pain in abdomen, constipation or diarrhea. Rest of review of systems is negative. OBJECTIVE: VITAL SIGNS: Temperature is 98.9 degrees Fahrenheit, blood pressure 133/70, pulse is 99, respiratory rate of 17, saturating 95% on room air. INTAKE AND OUTPUT: Urine output is not recorded. He had 8 voids yesterday, 1 void so far today since overnight. Weight in the bed scale is not available. PHYSICAL EXAMINATION: GENERAL: The patient is awake, alert, and oriented times three, laying in bed in no apparent distress. HEAD/NECK EXAM: Extraocular muscles intact. Pupils equally round and reactive to light. Neck is supple. There is no jugular venous distention (JVD). CARDIOVASCULAR: S1, S2. Regular rate. No murmur, rub, or gallop. RESPIRATORY: Chest is clear to auscultation bilaterally. Bilateral equal air entry. No rales or rhonchi. ABDOMEN: Soft. Positive bowel sounds. Nontender. No ascites. No organomegaly. EXTREMITIES: No clubbing or cyanosis. Pulses are 2+. NEUROLOGIC: No focal neurological deficit. Power is 5/5 in all extremities. LABORATORY DATA: Complete blood count (CBC) showed WBC of 8, hemoglobin 8.4, platelets of 323. Basic metabolic panel (BMP) showed sodium 134, potassium 4.6, chloride 104, bicarbonate 22, BUN 52, creatinine 2.67 and it was 2.79 yesterday, calcium is 8.2, albumin 2.2. CURRENT MEDICATIONS: The patient's medications were all reviewed by me. There is no change in the medication today as compared with yesterday. ASSESSMENT: 67-year-old male with acute kidney injury superimposed on chronic kidney disease, anemia and hypertension along with hyponatremia. PLAN: 1. Acute kidney injury superimposed on chronic kidney disease. The patient's baseline creatinine is 2.2. His creatinine has improved to 2.6 now. It is coming down close to his baseline. Continue to encourage oral hydration. However, his fluid intake has been restricted to 1200 mL today because of hyponatremia. 2. Hyponatremia. The patient's sodium had improved, but is dropping down back to 134 now. I have ordered urine osmolality and urine sodium levels. I do not see any other medications at this time apart from his antipsychotics and antidepressants that can cause hyponatremia. If urine lytes and osmolalities are consistent with syndrome of inappropriate secretion of antidiuretic hormone (SIADH) than his Cymbalta. Those would need to be decreased. 3. Hypertension. Blood pressure is acceptable at this time. Continue current dose of amlodipine 5 mg by mouth daily. Ecyvaqaogwk-sdmvegvmrh-krelwh (CHRIS) inhibitors were held because of acute kidney injury. 4. Iron-deficiency anemia. The patient was given IV iron infusion. His hemoglobin initially improved. By later on, it is 8.4 now. Continue to monitor for now. No need of blood transfusion.
[2017-03-23 12:08] LABS: OSMOLALITY URINE 391 MOSM/KG (500-800)
[2017-03-23] MEDS: amLODIPine 5 MG TAB PO SCH (13:08)
[2017-03-23 14:00] VITALS: BP 137/63
[2017-03-23] MEDS: OMEPRAZOLE 20 MG CAP PO SCH (17:39)
[2017-03-23] MEDS: rOPINIRole 0.25 MG TAB(REQUIP) PO SCH (17:39)
[2017-03-23] MEDS: ATORVASTATIN 20 MG TAB PO SCH (17:39)
[2017-03-23] MEDS: MONTELUKAST 10 MG TAB PO SCH (17:39)
[2017-03-23] MEDS: WARFARIN SOD 7.5 MG TAB PO SCH (17:40)
[2017-03-23 18:00] VITALS: BP 140/60
[2017-03-23] MEDS: TEMAZEPAM 15 MG CAP PO SCH (21:17)
[2017-03-23] MEDS: TAMSULOSIN 0.4 MG CAP PO SCH (21:18)
[2017-03-23] MEDS: DULoxetine 30 MG CAP (CYMBALTA) PO SCH (21:18)
[2017-03-23 22:00] VITALS: BP 136/62
[2017-03-24] MEDS: IPRATROPIUM 0.5MG/ALBUTEROL 2.5MG INH SOL UD 3ML (DUONEB)(J7620) NEB SCH ×4 (01:23→18:36)
[2017-03-24 02:00] VITALS: BP 140/64
[2017-03-24 06:00] VITALS: BP 142/64
[2017-03-24 06:24] LABS: BASO % 0.4 % (0.0-1.0); EOS # 0.8 K/mm3 (0.0-0.50); EOS % 11.2 % (0.0-3.0); LARGE UNSTAINED CELL # 0.2 K/mm3 (0.0-0.4); LARGE UNSTAINED CELL % 2.6 % (0.0-4.0); LYMPH # 1.7 K/mm3 (1.5-4.5); LYMPH % 21.1 % (24.0-44.0); MEAN CORPUSCULAR HEMOGLOBIN 29.7 pg (27.0-33.0); MEAN CORPUSCULAR HGB CONC 34.2 g/dl (32.0-36.5); MEAN CORPUSCULAR VOLUME 86.8 fl (80.0-96.0); MONO # 0.7 K/mm3 (0.0-0.8); NEUTROPHILS # 4.1 K/mm3 (1.8-7.7); NEUTROPHILS % 55.6 % (36.0-66.0); PLATELET COUNT, AUTOMATED 352 k/mm3 (150-450); RED CELL DISTRIBUTION WIDTH 13.6 % (11.5-14.5); WHITE BLOOD COUNT 7.3 K/mm3 (4.0-10.0)
[2017-03-24 06:47] LABS: ALBUMIN 2.1 GM/DL (3.2-5.2); ALBUMIN/GLOBULIN RATIO 0.53 (1.00-1.93); BILIRUBIN,TOTAL 0.3 MG/DL (0.2-1.0); CALCIUM LEVEL 8.1 MG/DL (8.8-10.2); CREATININE FOR GFR 2.5 MG/DL (0.70-1.30); GLOMERULAR FILTRATION RATE 27.6 (>49); POTASSIUM SERUM 4.9 MEQ/L (3.5-5.1); TOTAL PROTEIN 6.1 GM/DL (6.4-8.2)
[2017-03-24] MEDS: HumaLOG INSULIN (NovoLOG) PER UNIT SC SCH ×4 (07:30→21:05)
[2017-03-24 08:00] LABS: INR 1.39
[2017-03-24] MEDS: ADVAIR DISKUS 500/50 INH PWD INH SCH ×2 (08:07→20:13)
--- NOTE | 2017-03-24 09:13 | IPNPDOC ---
Subjective Date Seen The patient was seen on 03/24/17. Subjective Chief Complaint/HPI The patient is a 67-year-old male admitted with a reason for visit of Acute Kidney Injury. Events since last encounter Patient expressing frustration with lengthy hospitalization. INR subtherapeutic. Na+ returned to normal. Fluid restrict of 1200 per day maintained due to hyponatremia. Constitutional: Denies: Chills, Fever, Night Sweats ENT: Denies: Head Aches, Ear Pain, Dysphagia Skin: Denies: Rash, Lesions, Breakdown Pulmonary: Denies: Dyspnea, Cough Cardiovascular: Denies: Chest Pain, Palpitations, Orthopnea, Paroxysmal Noc. Dyspnea, Lt Headedness Neurological: Denies: Weakness, Numbness, Change in speech, Confusion Objective Physical Examination General Exam: Positive: Alert, No Acute Distress Chest Exam: Positive: Clear to auscultation Heart Exam: Positive: Rate Normal, Regular Rhythm Abdomen Exam: Positive: Normal bowel sounds, Soft, Negative: Tenderness Extremity Exam: Negative: Edema Assessment /Plan Problems (1) Recurrent deep vein thrombosis (DVT) Status: Chronic Response to Treatment: Stable Problem Text: 03/24/2017: INR 1.39. Warfarin 10 mg po ordered today. INR in am. Continue Lovenox until therapeutic; discharge home when therapeutic. Coumadin was held on admission due to supratherapeutic INR. Restarted 03/21 at 5 mg dose, but was increased to 7.5 mg daily x 2 days and then to 10 mg daily on 03/24/17 because he remained subtherapeutic. (2) Acute kidney injury Status: Acute Response to Treatment: Improving Problem Text: Baseline cr is ~2.2 03/24/17: Renal function continues to slowly improve. Had some hyponatremia yesterday. NA level returned to 136. Nephrology following. CHRIS/ARB held. (3) Anemia Status: Acute Response to Treatment: Worse Problem Text: Due to CKD/Fe deficiency; baseline hgb ~9. Continue to monitor - does not meet criteria for transfusion. Hemoccult on 03/24/17 was negative. 03/16/17 9%; therefore, Fe dextran 1 gm given (4) HTN (hypertension) Status: Chronic Response to Treatment: Improving Problem Text: amlodipine increased 03/22 by nephrology - BP improved. (5) Diabetes type 2, uncontrolled Status: Chronic Problem Text: Blood sugars variable. Continue Levemir BID Plan/VTE VTE Prophylaxis Ordered?: Yes Plan Family medicine attending note: I saw and examined Mr. Castillo today; I d/w Roxann Gonzales NP and I agree with her note above. Patient strongly wants to be discharged - I d/w him whether he would want to go home with lovenox until INR is therapeutic - he does not want to give himself shots at home. I recommended he remain in the hospital until he is therapeutic. (KES) VS, I&O, 24H, Fishbone Vital Signs/I&O Vital Signs Date Time Temp Pulse Resp B/P (MAP) Pulse Ox O2 Delivery O2 Flow Rate FiO2 03/24/17 06:00 97.9 86 18 142/64 (90) 96 Room Air I&O- Last 24 Hours up to 6 AM 03/24/17 06:00 Intake Total 1200 ml Balance 1200 ml Laboratory Data 24H LABS Laboratory Tests 2 03/23/17 11:42: Urine Random Osmolality 391L, Urine Random Sodium 48 03/24/17 06:01: White Blood Count 7.3, Red Blood Count 2.81L, Hemoglobin 8.3L, Hematocrit 24.4L , Mean Corpuscular Volume 86.8, Mean Corpuscular Hemoglobin 29.7, Mean Corpuscular Hemoglobin Concent 34.2, Red Cell Distribution Width 13.6, Platelet Count 352, Neutrophils (%) (Auto) 55.6, Lymphocytes (%) (Auto) 21.1L, Monocytes (%) (Auto) 9.0H, Eosinophils (%) (Auto) 11.2H, Basophils (%) (Auto) 0.4, Neutrophils # (Auto) 4.1, Lymphocytes # (Auto) 1.7, Monocytes # (Auto) 0.7, Eosinophils # (Auto) 0.8H, Basophils # (Auto) 0.0, Large Unclassified Cells % 2.6, Large Unclassified Cells # 0.2, Anion Gap 7L, Glomerular Filtration Rate 27.6L, Blood Urea Nitrogen 50H, Creatinine 2.50H, Sodium Level 136, Potassium Level 4.9, Chloride Level 105, Carbon Dioxide Level 24, Calcium Level 8.1L, Aspartate Amino Transf (AST/SGOT) 13L, Alanine Aminotransferase (ALT/SGPT) 24, Alkaline Phosphatase 77, Total Bilirubin 0.3, Total Protein 6.1L, Albumin 2.1L, Albumin/Globulin Ratio 0.53L 03/24/17 07:26: Prothrombin Time 17.2H, Prothromb Time International Ratio 1.39 CBC/BMP Laboratory Tests 03/24/17 06:01 Red Blood Count 2.81 L, Mean Corpuscular Volume 86.8, Mean Corpuscular Hemoglobin 29.7, Mean Corpuscular Hemoglobin Concent 34.2, Red Cell Distribution Width 13.6, Neutrophils (%) (Auto) 55.6, Lymphocytes (%) (Auto) 21.1 L, Monocytes (%) (Auto) 9.0 H, Eosinophils (%) (Auto) 11.2 H, Basophils (% ) (Auto) 0.4, Neutrophils # (Auto) 4.1, Lymphocytes # (Auto) 1.7, Monocytes # ( Auto) 0.7, Eosinophils # (Auto) 0.8 H, Basophils # (Auto) 0.0, Calcium Level 8.1 L, Aspartate Amino Transf (AST/SGOT) 13 L, Alanine Aminotransferase (ALT/ SGPT) 24, Alkaline Phosphatase 77, Total Bilirubin 0.3, Total Protein 6.1 L, Albumin 2.1 L Roxann Gonzales March 24, 2017 09:13 WILBERT DELGADO MD March 24, 2017 13:59
[2017-03-24] MEDS: MIRALAX *UNIT DOSE* 17GM PACKET PO SCH ×2 (09:28→21:02)
[2017-03-24] MEDS: ENOXAPARIN 100MG/1ML SYRINGE (J1650) SC SCH (09:28)
[2017-03-24] MEDS: LEVEMIR (INSULIN DETEMIR) 1 UNITS/0.01ML SC SCH ×2 (09:29→21:02)
[2017-03-24] MEDS: FLUTICASONE PROP 0.05% NASAL SPRAY 16 GM (FLONASE) SCH ×2 (09:29→21:00)
[2017-03-24] MEDS: FERROUS SULFATE 325MG TAB PO SCH (09:29)
[2017-03-24] MEDS: ACETAMINOPHEN TAB 650MG DOSE (2X325MG) PO PRN (09:59)
[2017-03-24 10:00] VITALS: BP 140/72
[2017-03-24] MEDS: amLODIPine 5 MG TAB PO SCH (12:36)
--- NOTE | 2017-03-24 13:20 | IPN ---
DATE: 03/24/2017 SUBJECTIVE: Patient was seen and examined at the bedside today in the morning. He was sitting in the bed. His sodium level is better today. His creatinine continues to improve. Patient reports that he is feeling thirsty. He wants his fluid restriction to be removed. REVIEW OF SYSTEMS: Patient denies any fevers, chills, rigors, headache, nausea, vomiting, chest pain, shortness of breath, pain in abdomen, constipation or diarrhea. He does report some weakness. Rest of the review of systems is negative. OBJECTIVE: VITAL SIGNS: Temperature is 98.1 degrees Fahrenheit, blood pressure 140/72, pulse is 96, respiratory rate of 18, saturating 95% on room air. INTAKE AND OUTPUT: Urine output is not recorded. He had three voids yesterday, two voids so far today. No bedside weight is available. PHYSICAL EXAMINATION: GENERAL: Patient is awake, alert, oriented times three, sitting in bed in no apparent distress. HEAD and NECK EXAM: Extraocular muscles intact. Pupils equally round and reactive to light. Neck is supple. There is no jugular venous distention (JVD). CARDIOVASCULAR: S1, S2. Regular rate. No murmur, rub, or gallop. RESPIRATORY: Chest is clear to auscultation bilaterally. Bilateral equal air entry. No rales or rhonchi. ABDOMEN: Soft. Positive bowel sounds. Nontender. No ascites. No organomegaly. EXTREMITIES: No clubbing or cyanosis. Pulses are 2+. CENTRAL NERVOUS SYSTEM (WATCH HAIRSPRING ASSEMBLER): No focal neurological deficit. Power is 5/5 in all extremities. LABORATORY REVIEW: CBC showed WBC 7.3, hemoglobin 8.3, platelets 352. BMP showed sodium 136, potassium 4.9, chloride 105, bicarbonate 24, BUN 50, creatinine 2.5, calcium 8.1. CURRENT INPATIENT MEDICATIONS: Patient's current medications were all reviewed by me. There is no change in the medications today as compared with yesterday except a change in his Coumadin dose which has been increased to 10 mg by mouth daily. ASSESSMENT: 67-year-old male with acute kidney injury superimposed on chronic kidney disease, anemia, hypertension, and hyponatremia. PLAN: 1. Acute kidney injury superimposed on chronic kidney disease. The patient's baseline creatinine is 2.2. His creatinine continues to improve, it is 2.5 today. Continue to monitor for improvement of renal function. 2. Hyponatremia. His sodium improved by fluid restriction, however patient is still feeling thirsty. I am going to increase the fluid restriction to 1500 mL by mouth daily. 3. Hypertension. Blood pressure is acceptable at this time. Continue current dose of amlodipine. 4. Iron-deficiency anemia. Patient's hemoglobin is still low at 8.3. I am going to order fecal occult blood testing to rule out the possibility of gastrointestinal (GI) bleeding. No need of blood transfusion at this time.
[2017-03-24 14:00] VITALS: BP 130/60
[2017-03-24] MEDS ORDERED: WARFARIN SOD 10 MG TAB PO ONE (17:00)
[2017-03-24] MEDS: ATORVASTATIN 20 MG TAB PO SCH (17:29)
[2017-03-24] MEDS: MONTELUKAST 10 MG TAB PO SCH (17:29)
[2017-03-24] MEDS: rOPINIRole 0.25 MG TAB(REQUIP) PO SCH (17:29)
[2017-03-24] MEDS: OMEPRAZOLE 20 MG CAP PO SCH (17:30)
[2017-03-24 18:00] VITALS: BP 162/72
[2017-03-24] MEDS: DULoxetine 30 MG CAP (CYMBALTA) PO SCH (21:00)
[2017-03-24] MEDS: TEMAZEPAM 15 MG CAP PO SCH (21:01)
[2017-03-24] MEDS: TAMSULOSIN 0.4 MG CAP PO SCH (21:01)
[2017-03-24 22:00] VITALS: BP 146/64
[2017-03-25] VITALS (7 sets, daily range): BP systolic 135–160; BP diastolic 62–78
[2017-03-25] MEDS: IPRATROPIUM 0.5MG/ALBUTEROL 2.5MG INH SOL UD 3ML (DUONEB)(J7620) NEB SCH ×4 (01:33→18:47)
[2017-03-25] MEDS: ACETAMINOPHEN TAB 650MG DOSE (2X325MG) PO PRN (02:47)
[2017-03-25] MEDS: HumaLOG INSULIN (NovoLOG) PER UNIT SC SCH ×4 (07:30→21:00)
[2017-03-25 08:13] LABS: BASO % 0.4 % (0.0-1.0); EOS # 0.6 K/mm3 (0.0-0.50); EOS % 9.1 % (0.0-3.0); LARGE UNSTAINED CELL # 0.2 K/mm3 (0.0-0.4); LARGE UNSTAINED CELL % 2.7 % (0.0-4.0); LYMPH # 1.4 K/mm3 (1.5-4.5); LYMPH % 20.6 % (24.0-44.0); MEAN CORPUSCULAR HEMOGLOBIN 29.4 pg (27.0-33.0); MEAN CORPUSCULAR HGB CONC 33.4 g/dl (32.0-36.5); MONO # 0.5 K/mm3 (0.0-0.8); MONO % 7.3 % (0.0-5.0); NEUTROPHILS # 3.7 K/mm3 (1.8-7.7); PLATELET COUNT, AUTOMATED 309 k/mm3 (150-450); RED CELL DISTRIBUTION WIDTH 13.6 % (11.5-14.5); WHITE BLOOD COUNT 6.1 K/mm3 (4.0-10.0)
[2017-03-25 08:27] LABS: INR 1.9
[2017-03-25 08:28] LABS: ALBUMIN 2.2 GM/DL (3.2-5.2); ALBUMIN/GLOBULIN RATIO 0.56 (1.00-1.93); BILIRUBIN,TOTAL 0.2 MG/DL (0.2-1.0); CALCIUM LEVEL 8.8 MG/DL (8.8-10.2); CREATININE FOR GFR 2.59 MG/DL (0.70-1.30); GLOMERULAR FILTRATION RATE 26.5 (>49); POTASSIUM SERUM 4.9 MEQ/L (3.5-5.1); TOTAL PROTEIN 6.1 GM/DL (6.4-8.2)
[2017-03-25] MEDS: MIRALAX *UNIT DOSE* 17GM PACKET PO SCH ×2 (08:52→21:47)
[2017-03-25] MEDS: ADVAIR DISKUS 500/50 INH PWD INH SCH ×2 (08:52→20:08)
[2017-03-25] MEDS: FLUTICASONE PROP 0.05% NASAL SPRAY 16 GM (FLONASE) SCH ×2 (08:52→21:47)
[2017-03-25] MEDS: FERROUS SULFATE 325MG TAB PO SCH (08:52)
[2017-03-25] MEDS: LEVEMIR (INSULIN DETEMIR) 1 UNITS/0.01ML SC SCH ×2 (08:53→21:00)
[2017-03-25] MEDS: ENOXAPARIN 100MG/1ML SYRINGE (J1650) SC SCH (08:53)
[2017-03-25] MEDS ORDERED: DARBEPOETIN 100 MCG/0.5 ML *NON-DIALYSIS* SYRINGE (J0881) SC SCH (09:00)
--- NOTE | 2017-03-25 10:23 | IPNPDOC ---
Subjective Date Seen The patient was seen on 03/25/17. Subjective Chief Complaint/HPI The patient is a 67-year-old male admitted with a reason for visit of Acute Kidney Injury. Events since last encounter Pt in bed, at bedside. He is eager to return home. C/o LACY this morning, low grade temp overnight. General: Denies: Fatigue Constitutional: Denies: Chills, Fever ENT: Reports: Head Aches Pulmonary: Denies: Dyspnea, Cough Cardiovascular: Denies: Chest Pain, Palpitations Gastrointestinal: Denies: Nausea, Vomiting, Diarrhea Neurological: Denies: Weakness Psych: Reports: Depression Objective Physical Examination General Exam: Positive: Alert, No Acute Distress ENT Exam: Positive: Mucous membr. moist/pink Chest Exam: Positive: Clear to auscultation Heart Exam: Positive: Rate Normal, Regular Rhythm Abdomen Exam: Positive: Normal bowel sounds, Soft, Negative: Tenderness Extremity Exam: Negative: Edema Neuro Exam: Positive: Normal Speech Assessment /Plan Problems (1) Recurrent deep vein thrombosis (DVT) Status: Chronic Response to Treatment: Stable Problem Text: 03/25 - INR 1.9, Cont with Lovenox, and Coumadin, until INR therepeutic. Rec Coumadin 10 mg yesterday. Will give 7.5 mg today. 03/24/2017: INR 1.39. Warfarin 10 mg po ordered today. INR in am. Continue Lovenox until therapeutic; discharge home when therapeutic. Coumadin was held on admission due to supratherapeutic INR. Restarted 03/21 at 5 mg dose, but was increased to 7.5 mg daily x 2 days and then to 10 mg daily on 03/24/17 because he remained subtherapeutic. (2) Acute kidney injury Status: Acute Response to Treatment: Improving Problem Text: Baseline cr is ~2.2 03/24/17: Renal function continues to slowly improve. Nephrology following. CHRIS/ ARB held. (3) Anemia Status: Acute Response to Treatment: Worse Problem Text: 03/25 - Hgb cont to trend down, he is at 8 this morning, he might benefit from 1 u of blood, we talked about this and he is willing to proceed, will defer final decision to Dr Andrade. Pt is aware. Due to CKD/Fe deficiency; baseline hgb ~9. Continue to monitor - does not meet criteria for transfusion. Hemoccult on 03/24/17 was negative. 03/16/17 9%; therefore, Fe dextran 1 gm given (4) HTN (hypertension) Status: Chronic Response to Treatment: Improving Problem Text: amlodipine increased 03/22 by nephrology - BP improved. (5) Diabetes type 2, uncontrolled Status: Chronic Problem Text: Blood sugars variable. Continue Levemir BID Plan/VTE VTE Prophylaxis Ordered?: Yes Plan Family Medicine Attending Note: Patient seen and examined this afternoon; he is c/o worsening SOB and extreme fatigue. I d/w YENNIFER Earl and I agree with her note above. I agree that he would likely benefit from receiving RBCs as I think some of his symptoms may be related to his gradually worsening anemia. I consented him to blood this afternoon. Will order 1 U pRBCs. Recheck PT/INR in the morning. (KES) VS, I&O, 24H, Fishbone Vital Signs/I&O Vital Signs Date Time Temp Pulse Resp B/P (MAP) Pulse Ox O2 Delivery O2 Flow Rate FiO2 03/25/17 10:00 98.6 90 20 150/68 (95) 96 03/25/17 06:00 NIPPV (BIPAP/CPAP) I&O- Last 24 Hours up to 6 AM 03/25/17 06:00 Intake Total 1140 ml Balance 1140 ml Laboratory Data 24H LABS Laboratory Tests 2 03/24/17 11:30: Bedside Glucose (Misc Panel) 283H 03/24/17 16:35: Bedside Glucose (Misc Panel) 267H 03/24/17 20:57: Bedside Glucose (Misc Panel) 290H 03/25/17 08:04: White Blood Count 6.1, Red Blood Count 2.71L, Hemoglobin 8.0L, Hematocrit 23.9L , Mean Corpuscular Volume 88.0, Mean Corpuscular Hemoglobin 29.4, Mean Corpuscular Hemoglobin Concent 33.4, Red Cell Distribution Width 13.6, Platelet Count 309, Neutrophils (%) (Auto) 60.0, Lymphocytes (%) (Auto) 20.6L, Monocytes (%) (Auto) 7.3H, Eosinophils (%) (Auto) 9.1H, Basophils (%) (Auto) 0.4, Neutrophils # (Auto) 3.7, Lymphocytes # (Auto) 1.4L, Monocytes # (Auto) 0.5, Eosinophils # (Auto) 0.6H, Basophils # (Auto) 0.0, Large Unclassified Cells % 2.7, Large Unclassified Cells # 0.2, Prothrombin Time 21.9H, Prothromb Time International Ratio 1.90, Anion Gap 8, Glomerular Filtration Rate 26.5L, Blood Urea Nitrogen 53H, Creatinine 2.59H, Sodium Level 140, Potassium Level 4.9, Chloride Level 108H, Carbon Dioxide Level 24, Calcium Level 8.8, Aspartate Amino Transf (AST/SGOT) 11L, Alanine Aminotransferase (ALT/SGPT) 23, Alkaline Phosphatase 79, Total Bilirubin 0.2, Total Protein 6.1L, Albumin 2.2L, Albumin/ Globulin Ratio 0.56L CBC/BMP Laboratory Tests 03/25/17 08:04 Red Blood Count 2.71 L, Mean Corpuscular Volume 88.0, Mean Corpuscular Hemoglobin 29.4, Mean Corpuscular Hemoglobin Concent 33.4, Red Cell Distribution Width 13.6, Neutrophils (%) (Auto) 60.0, Lymphocytes (%) (Auto) 20.6 L, Monocytes (%) (Auto) 7.3 H, Eosinophils (%) (Auto) 9.1 H, Basophils (%) (Auto) 0.4, Neutrophils # (Auto) 3.7, Lymphocytes # (Auto) 1.4 L, Monocytes # ( Auto) 0.5, Eosinophils # (Auto) 0.6 H, Basophils # (Auto) 0.0, Calcium Level 8.8 , Aspartate Amino Transf (AST/SGOT) 11 L, Alanine Aminotransferase (ALT/SGPT) 23 , Alkaline Phosphatase 79, Total Bilirubin 0.2, Total Protein 6.1 L, Albumin 2.2 L Microbiology Microbiology 03/24/17 Stool Occult Blood (ASHLEY) - Final, Complete JOANNA PARRISH PA-C Mar 25, 2017 10:23 WILBERT ANDRADE MD Mar 25, 2017 13:22
[2017-03-25 10:53] LABS: PERCENT SATURATION 34.9 % (19.7-37.4)
[2017-03-25] MEDS: amLODIPine 5 MG TAB PO SCH (13:45)
--- NOTE | 2017-03-25 14:31 | IPN ---
DATE: 03/25/2017 SUBJECTIVE: The patient was seen and examined at the bedside today in the morning. He was sitting in the bed in no apparent distress. The patient's hemoglobin continues to drop otherwise his renal function is stable. Creatinine is 2.5 today. REVIEW OF SYSTEMS: The patient denies any fevers, chills, rigors, headaches, nausea, vomiting or chest pain. He does report some shortness of breath on exertion and he reports being weak. He denies any pain in the abdomen, constipation or diarrhea. The rest of the review of systems is negative. OBJECTIVE: VITAL SIGNS: Temperature is 98.6 degrees Fahrenheit. Blood pressure is 150/68, pulse is 90, respiratory rate of 18 saturating 96% in room air. Intake and output: Urine output is not recorded. Bedside weight is not available. GENERAL: The patient is awake, alert, oriented times three laying in bed in no apparent distress. HEAD AND NECK EXAM: Extraocular muscles intact. Pupils equal and reactive to light. The patient does have conjunctiva pallor. Neck is supple. T here is no jugular venous distention. CARDIOVASCULAR: S1, S2, regular rate. No murmur, rub or gallop. RESPIRATORY: Chest is clear to auscultation bilaterally. Bilaterally equal air entry. No rales or rhonchi. ABDOMEN: Soft, positive bowel sounds. Nontender. No ascites. No organomegaly. EXTREMITIES: No clubbing or cyanosis. Pulses are 2+. MARRIAGE AND FAMILY THERAPIST: No focal neurological deficit. Power is 5/5 in all extremities. LAB REVIEW: CBC showed WBC 6.1, hemoglobin is 8, hematocrit is 23.9, platelets of 309. BMP showed sodium 140, potassium 4.9, chloride 108, bicarbonate 24, BUN 53, creatinine 2.59. It was 2.5 yesterday. Calcium 8.8, albumin 2.2. Iron studies showed iron 81, TIBC 232, transferrin saturation 34.9, ferritin 581. Microbiology: Stool occult blood testing done yesterday was negative. CURRENT MEDICATIONS: The patient's medications were all reviewed by me. I have started the patient on Aranesp 100 mcg subcutaneously, one dose to be given today. There is no other change in the medications apart from changing the warfarin dose, which as been changed to 7.5 mg today. ASSESSMENT: 67-year-old male with acute kidney disease superimposed on chronic kidney disease, anemia and hypertension. PLAN: 1. Acute kidney disease superimposed on chronic kidney disease: The patient's baseline creatinine is 2.2. His creatinine is fluctuating around 2.5 now. Continue to monitor for improvement of renal function. 2. Anemia and chronic kidney disease: The patient was iron deficient. He was given IV iron. His repeat iron levels are okay. Hemoglobin is down to 8. The patient will get 1 unit of packed red blood cells transfusion. Fecal occult blood test is negative. I have started the patient on Aranesp 100 mcg subcutaneously daily. One dose will be given today. 3. Hypertension: Continue current dose of amlodipine. Blood pressure is acceptable at this time. 4. Hyponatremia: Sodium level improved with fluid restriction. Continue fluid restriction of 1.5 liters by mouth daily.
[2017-03-25] MEDS ORDERED: WARFARIN SOD 7.5 MG TAB PO ONE (17:00)
[2017-03-25] MEDS: ATORVASTATIN 20 MG TAB PO SCH (18:05)
[2017-03-25] MEDS: MONTELUKAST 10 MG TAB PO SCH (18:05)
[2017-03-25] MEDS: OMEPRAZOLE 20 MG CAP PO SCH (18:05)
[2017-03-25] MEDS: rOPINIRole 0.25 MG TAB(REQUIP) PO SCH (18:05)
[2017-03-25] MEDS ORDERED: LEVEMIR (INSULIN DETEMIR) 1 UNITS/0.01ML SC ONE (21:45)
[2017-03-25] MEDS: TEMAZEPAM 15 MG CAP PO SCH (21:46)
[2017-03-25] MEDS: DULoxetine 30 MG CAP (CYMBALTA) PO SCH (21:47)
[2017-03-25] MEDS: TAMSULOSIN 0.4 MG CAP PO SCH (21:47)
[2017-03-26] MEDS: IPRATROPIUM 0.5MG/ALBUTEROL 2.5MG INH SOL UD 3ML (DUONEB)(J7620) NEB SCH ×2 (01:28→08:00)
[2017-03-26 02:00] VITALS: BP 144/62
[2017-03-26 05:57] LABS: BASO % 0.5 % (0.0-1.0); EOS # 0.6 K/mm3 (0.0-0.50); EOS % 7.1 % (0.0-3.0); LARGE UNSTAINED CELL # 0.3 K/mm3 (0.0-0.4); LARGE UNSTAINED CELL % 3.2 % (0.0-4.0); LYMPH # 1.8 K/mm3 (1.5-4.5); LYMPH % 22.7 % (24.0-44.0); MEAN CORPUSCULAR HEMOGLOBIN 29.5 pg (27.0-33.0); MEAN CORPUSCULAR HGB CONC 32.9 g/dl (32.0-36.5); MEAN CORPUSCULAR VOLUME 89.6 fl (80.0-96.0); MONO # 0.5 K/mm3 (0.0-0.8); MONO % 5.6 % (0.0-5.0); NEUTROPHILS # 4.9 K/mm3 (1.8-7.7); NEUTROPHILS % 60.9 % (36.0-66.0); PLATELET COUNT, AUTOMATED 328 k/mm3 (150-450); RED CELL DISTRIBUTION WIDTH 13.8 % (11.5-14.5); WHITE BLOOD COUNT 8.1 K/mm3 (4.0-10.0)
[2017-03-26 06:00] VITALS: BP 144/70
[2017-03-26 06:02] LABS: INR 2.12
[2017-03-26 06:20] LABS: ALBUMIN 2.3 GM/DL (3.2-5.2); ALBUMIN/GLOBULIN RATIO 0.59 (1.00-1.93); BILIRUBIN,TOTAL 0.2 MG/DL (0.2-1.0); CALCIUM LEVEL 8.4 MG/DL (8.8-10.2); CREATININE FOR GFR 2.4 MG/DL (0.70-1.30); TOTAL PROTEIN 6.2 GM/DL (6.4-8.2)
[2017-03-26] MEDS: FERROUS SULFATE 325MG TAB PO SCH (07:57)
[2017-03-26] MEDS: MIRALAX *UNIT DOSE* 17GM PACKET PO SCH (07:57)
[2017-03-26] MEDS: LEVEMIR (INSULIN DETEMIR) 1 UNITS/0.01ML SC SCH (07:57)
[2017-03-26] MEDS: HumaLOG INSULIN (NovoLOG) PER UNIT SC SCH (07:58)
[2017-03-26] MEDS: FLUTICASONE PROP 0.05% NASAL SPRAY 16 GM (FLONASE) SCH (07:58)
[2017-03-26] MEDS: ENOXAPARIN 100MG/1ML SYRINGE (J1650) SC SCH (08:01)
[2017-03-26] MEDS: ADVAIR DISKUS 500/50 INH PWD INH SCH (08:21)
[2017-03-26] MEDS ORDERED: AMLO5TAB2 PO (08:47)
[2017-03-26] MEDS ORDERED: COUM7.5T PO (08:47)
--- NOTE | 2017-03-26 17:24 | IPN ---
DATE: 03/26/2017 SUBJECTIVE: Patient was seen and examined at the bedside today in the morning. He feels much better. Patient got 1 unit of packed red blood cells (PRBC) transfusion yesterday. He reports that his leg cramping and shortness of breath significantly got better with blood transfusion. His creatinine is also improving. It is down to 2.4 today. REVIEW OF SYSTEMS: Patient denies any fevers, chills, rigors, headache, nausea, vomiting, chest pain, shortness of breath, pain in abdomen, constipation, or diarrhea. Rest of review of systems is negative. OBJECTIVE: VITAL SIGNS: Temperature is 98.2 degrees Fahrenheit, blood pressure is 144/70, pulse is 87, respiratory rate of 18, saturating 96% on room air. Intake and output: Urine output is not recorded. Patient had five voids yesterday, two voids so far today. PHYSICAL EXAMINATION: GENERAL: Patient is awake, alert, oriented times three, sitting in bed in No apparent distress. His skin pallor is significantly better. HEAD AND NECK: Extraocular muscles intact. Pupils equally round and reactive to light. Mucous membranes are moist. Neck is supple. There is no jugular venous distention (JVD). CARDIOVASCULAR: S1, S2, regular rate. No murmur, rub, or gallop. RESPIRATORY: Chest is clear to auscultation bilaterally. Bilateral equal air entry. No rales or rhonchi. ABDOMEN: Soft. Positive bowel sounds. Nontender. No ascites. No organomegaly. EXTREMITIES: No clubbing or cyanosis. Pulses are 2+. CENTRAL NERVOUS SYSTEM: No focal neurological deficit. Power is 5/5 in all extremities. LABORATORY REVIEW: CBC showed a WBC 8.1, hemoglobin 9.5, platelets are 328. INR is 2.1. BMP showed sodium 137, potassium is 5, chloride 106, bicarbonate 24, BUN 43, creatinine is 2.4, calcium 8.4. Albumin 2.3. CURRENT MEDICATIONS: Patient's medications were all reviewed by me. There is no change in the medications today as compared with yesterday. ASSESSMENT: A 67-year-old male with acute kidney injury superimposed on chronic kidney disease, anemia, and hypertension. PLAN: 1. Acute kidney injury superimposed on chronic kidney disease. Patient's renal function is improving. His baseline creatinine is 2.2. Creatinine is down to 2.4 today. Continue to monitor for improvement of renal function. 2. Anemia and chronic kidney disease. Patient was iron deficient. He got IV iron, but despite that he remained anemic. Patient got 1 unit of PRBC transfusion. He also got a dose of Aranesp 100 mcg subcutaneous yesterday. Hemoglobin is improving. Rest of the anemia management will be done as outpatient. 3. Hypertension. Blood pressure is acceptable at this time. Continue current dose of amlodipine. Avoid the angiotensin-converting enzyme (CHRIS) inhibitors at this time. DISCHARGE PLANNING: It is okay to discharge the patient from nephrology standpoint. He can followup with nephrology clinic about 2-3 weeks after discharge from the hospital.
--- NOTE | 2017-03-26 20:53 | DSES ---
DATE OF ADMISSION: 03/16/2017 DATE OF DISCHARGE: 03/26/2017 Primary care provider (PCP) is Briana Alanis and Dr. Bojorquez. Attending today is Dr. Chiqui Andrade. HISTORY: This is a 67-year-old male patient who follows with Briana Alanis and Dr. Bojorquez at [facility], who presented to [facility] complaining of increasing shortness of breath on and off for the last month, chills and sweats over the few days prior to his presentation, although no sick contacts. In the emergency room, he was given a dose of 125 mg of Solu-Medrol as well as a breathing treatment, and his breathing did improve, although he was found to have a creatinine of 3.46 with a baseline of 2.1 to 2.5 and therefore, it was recommended that he was admitted for acute kidney injury for further management and monitoring. During his hospitalization, he remained medically stable. He was treated with intravenous (IV) Solu-Medrol and nebulizers for shortness of breath. He was started on IV fluids as well as any nephrotoxic drugs were discontinued, including hydrochlorothiazide and an angiotensin receptor feliciano (ARB). Nephrology was consulted and has followed the patient throughout his hospitalization. He was also noted to have a supratherapeutic international normalized ratio (INR) on admission and his Coumadin was held. secondary to recurrent deep vein thromboses (DVTs). As a result of his being low, he was started on Lovenox until his INR was again therapeutic. Today, on the day of discharge, the Lovenox has been discontinued as his INR is 2.12. His creatinine peaked at 3.86, this morning it is down to 2.4, which is closer to his baseline, although not quite at his baseline. He will need further management and monitoring. In terms of his renal function, he will followup with nephrology as an outpatient. He also, again, was given IV fluids during his hospitalization. His hemoglobin trended down from 9 to 8 throughout his stay; he did receive one unit of packed red blood cells on 03/25/2017 with his hemoglobin this morning being 9.5. He had stool occult blood which was negative since he has been here. He also underwent a renal ultrasound, which suggests chronic medical renal disease with a solitary right renal cyst. Suspect the anemia is related to IV fluid hydration as well as acute kidney injury. His iron levels were checked. His iron is 81, total iron binding capacity is 232, percent saturation 34.9, ferritin was 581. B12 was 471, folate was 14.9. The patient's has been at bedside. She is quite attentive. She manages his medications at home. He has been seen by physical therapy, who feel as though he is safe to return home. They have no additional concerns at this time. DISCHARGE DIAGNOSES: Acute on chronic kidney disease, stage IV. Anemia of chronic disease. Hypertension. Hyponatremia. History of recurrent deep vein thromboses. Diabetes mellitus type 2. DISCHARGE MEDICATIONS: - Coumadin 7.5 mg daily - amlodipine 5 mg daily - albuterol sulfate nebulizer every 4 hours as needed for shortness of breath - albuterol sulfate HFA two puffs inhaled every 4 hours as needed for shortness of breath - Lipitor 40 mg daily - Butrans 20 mcg as directed - duloxetine 60 mg before bed - ferrous sulfate 325 mg daily - fish oil 1000 mg one capsule three times daily - fluticasone nasal spray twice daily as needed - Incruse Ellipta 62.5 mcg inhaled daily - NovoLog sliding scale - Lantus 10 units in the morning, 24 units in the evening - meclizine 25 mg daily as needed for dizziness - Singulair 10 mg daily - omeprazole 20 mg daily - ropinirole 0.5 mg daily - Advair Diskus 500/50 inhaled twice daily - Flomax 0.4 mg daily - Restoril 30 mg daily - vitamin D 50,000 units weekly DISCHARGE PLAN: Followup with Briana Alanis on Wednesday or Wednesday. He should have blood work, including a complete blood count (CBC), basic metabolic panel (BMP) and prothrombin time (PT)/international normalized ratio (INR) on 03/29/2017. His activity should be as tolerated.
== END 2017-03-26 10:45 | disposition home or self-care (01) | DRG 683 ==
LOC: M ED 21:34 → M ED INP 23:46 → M PCU 03-17 00:18 → M MSPAV 03-19 14:54
PROVIDERS: ADMIT Internal Medicine; ATTEND Family Medicine
PROC: 30253N1 (ICD-10-PCS; principal; 2017-03-25)
DX: N17.9 Acute kidney failure, unspecified (principal); E87.1 Hypo-osmolality and hyponatremia; I82.91 Chronic embolism and thrombosis of unspecified vein; N18.4 Chronic kidney disease, stage 4 (severe); J44.9 Chronic obstructive pulmonary disease, unspecified; G47.33 Obstructive sleep apnea (adult) (pediatric); I12.9 Hypertensive chronic kidney disease with stage 1 through stage 4 chronic kidney disease, or unspecified chronic kidney disease; D50.9 Iron deficiency anemia, unspecified; E11.42 Type 2 diabetes mellitus with diabetic polyneuropathy; E78.5 Hyperlipidemia, unspecified; L13.0 Dermatitis herpetiformis; F41.9 Anxiety disorder, unspecified; N40.0 Benign prostatic hyperplasia without lower urinary tract symptoms; E02 Subclinical iodine-deficiency hypothyroidism; E55.9 Vitamin D deficiency, unspecified; Z87.891 Personal history of nicotine dependence; Z98.1 Arthrodesis status; Z79.4 Long term (current) use of insulin; Z79.51 Long term (current) use of inhaled steroids; Z79.899 Other long term (current) drug therapy; Z79.01 Long term (current) use of anticoagulants; Z88.8 Allergy status to other drugs, medicaments and biological substances; Z86.718 Personal history of other venous thrombosis and embolism; E11.65 Type 2 diabetes mellitus with hyperglycemia

== ENCOUNTER → 2017-03-29 | Outpatient (REF) | payer OTHER ==
[~2017-03-29] MED LIST changes: +ADV500INH INH; +ALL10TAB27 PO; +AMLO5TAB2 PO; +BUTR20DI2 TD; +COUM7.5T PO; +FERR325T PO; +FLOM5CAP PO; +GABA-283 PO; +GLIM2TA PO; +HYDR25TAB PO; +INCR1INH IN; +INCR1INH INH; +INSULANT SC; +MIRA3350 PO; +MOVA1TAB PO; +NORC1TAB4 PO; +OMEP20TA PO; +PATA0.2S OP; +REQU0.5T PO; +REQU2TAB3 PO; +SING10TA32 PO; +WARF-23 PO; +ZOFR4TAB3 PO
[2017-03-29 15:37] LABS: INR 3.18
[2017-03-29 15:56] LABS: MEAN CORPUSCULAR HGB CONC 32.9 g/dl (32.0-36.5); MEAN CORPUSCULAR VOLUME 90.9 fl (80.0-96.0); RED CELL DISTRIBUTION WIDTH 14.6 % (11.5-14.5); WHITE BLOOD COUNT 8.5 K/mm3 (4.0-10.0)
== END ==
LOC: M SFHCPLAZ 13:10
PROVIDERS: ATTEND Nurse Practitioner Family
DX: N18.4 Chronic kidney disease, stage 4 (severe) (principal)

== ENCOUNTER → 2017-03-30 | Outpatient (CLI) | payer OTHER ==
--- NOTE | 2017-03-31 02:17 | ECWPNPC ---
PATIENT NAME: YOVANI VALLEJO : 1950 GENDER: MALE VISIT DATE: 03/30/2017 DISCHARGE DATE: 03/30/17 1532 VISIT LOCKED DATE TIME: PHYSICIAN: SAVANNA PARR RESOURCE: SAVANNA PARR REASON FOR APPOINTMENT 1. BACK HISTORY OF PRESENT ILLNESS HISTORY OF PRESENT ILLNESS: HERE FOR F/U AND MEDICINE MANAGEMENT OF CHRONIC LOW BACK PAIN.RATING PAIN VAS 0/10.USING BUTRANS PATCH 20MCG Q 7 DAYS AND REQUIP 0.5MG AT HS.FINDS MEDICATION HELPFUL.DENIES SIDE EFFECTS.HAVING LESS JERKING OF LEGS AT NIGHT AFTER STARTING ROPINEROLE 0.5 LAST MONTH. PAIN THE PATIENT DESCRIBES THE PAIN... FALL RISK SCREENING: SCREENING :NO FALLS IN THE PAST YEAR CURRENT MEDICATIONS TAKING PATADAY 0.2 % SOLUTION DIRECTED OPHTHALMIC ONCE DAILY TAKING DRISDOL 50,000 UNITS TABLET 1 CAPSULE ORALLY ONCE A WEEK TAKING GLUCAGON EMERGENCY 1 MG KIT DIRECTED INJECTION DAILY NEEDED TAKING MIRALAX PACKET 1 PACKET MIXED WITH 8 OUNCES OF FLUID ORALLY DAILY TAKING ZOFRAN ODT 4 MG TABLET DISPERSIBLE 1 TABLET ON THE TONGUE AND ALLOW TO DISSOLVE ORALLY EVERY 8 HRS NEEDED TAKING FISH OIL 1000 MG CAPSULE 1 CAP(S) ORALLY THREE TIMES A DAY TAKING PEN NEEDLES 31G X 5 MM ULTRA FINE 1 EACH INTRADERMALLY DIAG CODE 250.60 FOUR TIMES A DAY TAKING MECLIZINE HCL 25 MG TABLET 1 TABLET ORALLY ONCE A DAY NEEDED FOR VERTIGO TAKING COBAN SELF-ADHERENT WRAP 1 MISCELLANEOUS TO WOUND TOPICAL DAILY, NEEDED TAKING TAMSULOSIN HCL 0.4 MG CAPSULE EXTENDED RELEASE 24 HOUR 1 CAPSULE 30 MINUTES AFTER THE SAME MEAL EACH DAY ORALLY ONCE A DAY TAKING MOVANTIK 12.5 MG TABLET 1 TABLET IN THE MORNING ORALLY ONCE A DAY TAKING COUMADIN 7.5 MG TABLET 1 TABLET ORALLY DAILY TAKING LANTUS 100 UNIT/ML SOLUTION TWICE A DAY SUBCUTANEOUS 10 UNITS IN AM 24 PM TAKING NOVOLOG 100 UNIT/ML SOLUTION 10 UNITS BREAKFAST, 10 UNITS LUNCH, 23 UNITS DINNER ( DR. PRADO) SUBCUTANEOUS 10 UNITS IN AM, 10 UNITS LUNCH AND 17 UNITS DINNER TAKING AMARYL 4 MG TABLET 1 TABLET ORALLY TWICE A DAY TAKING HYDROCHLOROTHIAZIDE 25 25 MG TABLET 1 TAB(S) ORALLY DAILY TAKING COZAAR 100 MG TABLET 1 TAB(S) ORALLY DAILY TAKING NORVASC 5 MG TABLET 1 TABLET ORALLY ONCE A DAY TAKING CYMBALTA 60 MG CAPSULE DELAYED RELEASE PARTICLES 1 CAPSULE ORALLY ONCE A DAY TAKING FULL KIT NEBULIZER SET - MISCELLANEOUS DIRECTED DX J44.9 (COPD) DAILY TAKING ALCLOMETASONE DIPROPIONATE 0.05 % OINTMENT 1 APPLICATION TO AFFECTED AREA EXTERNALLY ONCE A DAY TAKING LIPITOR 40 MG TABLET 1 TABLET ORALLY ONCE A DAY TAKING OMEPRAZOLE 20 MG CAPSULE DELAYED RELEASE 1 CAP(S) ORALLY DAILY TAKING FLUTICASONE PROPIONATE 50 MCG/ACT SUSPENSION INSTILL 1-2 SPRAYS INTO EACH NOSTRIL ONCE DAILY NASALLY ONCE A DAY TAKING BUTRANS 20 MCG/HR PATCH WEEKLY 1 PATCH TO SKIN TRANSDERMAL APPLY 1 PATCH Q 7 DAYS MDD=1 TAKING REQUIP 0.5 MG TABLET 1 TABLET 1 TO 3 HOURS BEFORE BEDTIME ORALLY ONCE A DAY TAKING MIRALAX - PACKET 1 PACKET MIXED WITH 8 OUNCES OF FLUID ORALLY ONCE A DAY TAKING ALBUTEROL SULFATE (2.5 MG/3ML) 0.083% NEBULIZATION SOLUTION 3 ML INHALATION EVERY 4 HRS NEEDED TAKING SALINE NASAL SPRAY 0.65 % SOLUTION 2 SPRAYS EACH NOSTRIL NASALLY FOUR TIMES DAILY NEEDED TAKING CETIRIZINE HCL 5 MG TABLET 1 TABLET ORALLY ONCE A DAY TAKING SINGULAIR 10 MG TABLET 1 TABLET IN THE EVENING ORALLY ONCE A DAY TAKING FERROUS SULFATE 325 (65 FE) MG TABLET 1 TABLET ORALLY ONCE A DAY TAKING INCRUSE ELLIPTA 62.5 MCG/INH AEROSOL POWDER BREATH ACTIVATED 1 PUFF ONCE A DAY INHALATION 30 DAY(S) TAKING PROVENTIL HFA 108 (90 BASE) MCG/ACT AEROSOL SOLUTION 2 PUFFS INHALATION EVERY 4 HOURS NEEDED TAKING ADVAIR DISKUS 500-50 MCG/DOSE AEROSOL POWDER BREATH ACTIVATED 1 PUFF INHALATION TWICE A DAY TAKING TEMAZEPAM 30 MG CAPSULE 1 CAPSULE AT BEDTIME NEEDED ORALLY ONCE A DAY TAKING NORCO 5-325 MG TABLET 1 TABLET NEEDED ORALLY EVERY 6 HRS MDD =4, NOTES: DO NOT FILL EARLY NOT-TAKING NEURONTIN 300 MG CAPSULE 1 TABLET ORALLY EVERY NIGHT NOT-TAKING CEFTIN 500 MG TABLET 1 TABLET ORALLY TWICE A DAY MEDICATION LIST REVIEWED AND RECONCILED WITH THE PATIENT PAST MEDICAL HISTORY DVT CHRONIC PHLEBITIS CHRONIC VENOUS INSUFFICIENCY PERIPHERAL NEUROPATHY TYPE 2 DIABETES--DR Amisha PRADO HYPERLIPIDEMIA HTN COPD HX OF DEPRESSION DDD/DJD GERD DERMATITIS HERPETIFORMIS-- + BX 05/03 DR MCDONALD ADENOMATOUS COLON POLYP 2009 RESTLESS LEG SYNDROME GLUTEN INTOLERANT (NOT CELIAC DIS-- NEG SB BX 8/10--BUT HAS DERMATITIS HERPETIFORMIS-- + BX 05/03 DR MCDONALD) RIGTH SHOULDER NERVE IMPINGEMENT/RIGHT CARPEL TUNNEL - DR. PRADO GORDON ON CPAP SUBCLINICAL HYPOTHYROIDISM 06/07 DIVERTICULOSIS 01/2016 KIDNEY DISEASE ALLERGIES ACTOS: EDEMA: SIDE EFFECTS DEMEROL: HIVES: ALLERGY DILANTIN: ANAPHYLAXIS: ALLERGY GLUCOPHAGE: RASH: ALLERGY LEVAQUIN: HEAD ACHE: SIDE EFFECTS PHENOBARBITAL: ANAPHYLAXIS: ALLERGY TEGRETOL: ANAPHYLAXIS: ALLERGY PENICILLIN (FOR ALLERGIES USE ONLY): HIVES: ALLERGY TRIPLE ANTIBIOTIC: FACIAL SWELLING: ALLERGY REQUIP: ELEVATED LIVER ENZYMES LATEX (FOR ALLERGY USE ONLY): RASH: ALLERGY CRESTOR: HEADACHE LYRICA: DIDN'T WORK: SIDE EFFECTS CAPSACIN (TOPICALLY): EXCESSIVE BURNING: SIDE EFFECTS LISINOPRIL: RASH: SIDE EFFECTS GABAPENTIN: DIDN'T WORK: LACK OF THERAPEUTIC EFFECT DAPSONE: ANEMIA: SIDE EFFECTS NSAIDS: CONTRAINDICATION SURGICAL HISTORY CERVICAL SPINE FUSION 06/2003 L ARM BREAK REPAIR 11/1981 R LEG BREAK REPAIR 02/1982 COLONSOCOPY (ADENOMATOUS POLYP 2009) 2003,2009 EGD 2009 ENDOSCOPY AND COLONOSCOPY 2015DEC 13 HOSPITALIZATION/MAJOR DIAGNOSTIC PROCEDURE CERVICAL SPINE FUSION SX 06/2003 L ARM BREAK REAPIR SX 11/1981 R LEG BREAK REPAIR SX 02/1982 PNEUMONIA 03/2009 BOWEL IMPACTION 09/2009 REVIEW OF SYSTEMS CONSTITUTIONAL: ANY CHANGE IN YOUR MEDICAL CONDITION? YES, PT STATES HE WAS JUST RELEASED FROM [facility] FOR 10 DAY HOSPITAL STAY, 03/16-03/26 . PT STATES HE WENT TO THE ER HE FELT HE COULDN'T BREATHE AND PT WAS ADMITTED FOR KIDNEY DISEASE.&NBSP;. CHILLS &NBSP;&NBSP; NO&NBSP;. FEVER &NBSP;&NBSP; NO&NBSP;. INFECTION: DO YOU HAVE NEW INFECTIONS? NO . DO YOU HAVE HISTORY OF MRSA? NO . MUSCULOSKELETAL: ANY NEW PATTERNS OF PAIN OR NUMBNESS? NO . GASTROENTEROLOGY: ANY NEW CHANGE IN BOWEL CONTROL? NO . GENITOURINARY: ANY NEW CHANGE IN BLADDER CONTROL? NO . IS THERE A CHANCE YOU COULD BE ? NO . HEMATOLOGY/LYMPH: DO YOU TAKE ANY BLOOD THINNERS? (FOR EXAMPLE- COUMADIN, PLAVIX, AGGRENOX, PLATEL, PRADAXA, OR XARELTO) NO . WHEN WAS YOUR LAST DOSE? DATE: TIME: . NEUROLOGY: HAVE YOU FALLEN IN THE PAST 6 MONTHS? NO . ANY NEW EXTREMITY NUMBNESS OR WEAKNESS? NO . CARDIOLOGY: DO YOU HAVE A PACEMAKER OR DEFIBRILLATOR? NO . RESPIRATORY: HAVE YOU BEEN SICK IN THE PAST WEEK? NO . FEVER NO . FLU LIKE SYMPTOMS? NO . COUGH NO . INTEGUMENTARY: DO YOU HAVE ANY RASHES OR OPEN SORES? NO . ALLERGIC/IMMUNO: ARE YOU ALLERGIC TO SHELLFISH OR IV DYE? NO . ANY NEW ALLERGIES? NO . PSYCHIATRIC: DO YOU HAVE THOUGHTS OF HURTING YOURSELF OR SOMEONE ELSE? NO . ARE YOU ABUSED, NEGLECTED, OR IN AN UNSAFE ENVIRONMENT? NO . ENDOCRINOLOGY: ARE YOU DIABETIC? YES . OTHER: DO YOU NEED ANY PRESCRIPTIONS? NO . IF YES, PLEASE LIST: ____ . ANY NEW PROBLEMS WITH YOUR MEDICATIONS? NO . WHEN DID YOU LAST EAT? ____ . WHEN DID YOU LAST DRINK? ____ . WHAT DID YOU LAST DRINK? ____ . NAME OF PERSON DRIVING YOU HOME? ____ . DO YOU HAVE ANY OTHER QUESTIONS OR CONCERNS NO . REVIEWED BY: PROVIDER: SAVANNA PATEL . VITAL SIGNS WT 212.8 LBS, HT 69 IN, BMI 31.42 INDEX, BP 161/68 MM HG, HR 95 /MIN, RR 18 /MIN, TEMP 96.8 F, OXYGEN SAT % 95%, SAFE IN ENV? (Y/N) Y, NA INITIALS TL 1513, REVIEWED BY: JOÃO. EXAMINATION GENERAL EXAMINATION: LUNGS:LUNG SOUNDS ARE CLEAR. HEART:HEART RATE REGULAR. MUSCULOSKELETAL:*PALPATION: NEGATIVE FOR PAIN OVER L/S SPINE. NEGATIVE FOR PAIN OVER L/S PARASPINALS. MUSCLE STRENGTH TESTING 5/5 BLE. ASSESSMENTS DIABETIC PERIPHERAL NEUROPATHY - E11.42 (PRIMARY) CHRONIC PRESCRIPTION OPIATE USE - Z79.891 SPONDYLOSIS OF LUMBOSACRAL REGION WITHOUT MYELOPATHY OR RADICULOPATHY - M47.817 TREATMENT DIABETIC PERIPHERAL NEUROPATHY CONTINUE BUTRANS PATCH WEEKLY, 20 MCG/HR, 1 PATCH TO SKIN, TRANSDERMAL, APPLY 1 PATCH Q 7 DAYS MDD=1 CONTINUE REQUIP TABLET, 0.5 MG, 1 TABLET 1 TO 3 HOURS BEFORE BEDTIME, ORALLY, ONCE A DAY PROCEDURE CODES FA211 ESTABILISHED PATIENT [facility] CHARGE DISPOSITION & COMMUNICATION FOLLOW UP 2 MONTHS ELECTRONICALLY SIGNED BY JORGE HELLER ON 03/30/2017 AT 03:41 PM EDT DISCLAIMER : THIS IS A VISIT SUMMARY EXTRACTED FROM THE [employer] CHART. IT IS NOT A COPY OF THE [employer] PROGRESS NOTE. JOVANNA
== END ==
LOC: M PAIN 15:00
PROVIDERS: ATTEND Nurse Practitioner Family
DX: M54.5 Low back pain (principal); G89.29 Other chronic pain; E11.42 Type 2 diabetes mellitus with diabetic polyneuropathy; D63.8 Anemia in other chronic diseases classified elsewhere; J44.1 Chronic obstructive pulmonary disease with (acute) exacerbation; D50.9 Iron deficiency anemia, unspecified; M47.817 Spondylosis without myelopathy or radiculopathy, lumbosacral region; I12.9 Hypertensive chronic kidney disease with stage 1 through stage 4 chronic kidney disease, or unspecified chronic kidney disease; N18.9 Chronic kidney disease, unspecified; Z79.84 Long term (current) use of oral hypoglycemic drugs; Z79.891 Long term (current) use of opiate analgesic; Z79.01 Long term (current) use of anticoagulants; Z79.4 Long term (current) use of insulin; Z88.8 Allergy status to other drugs, medicaments and biological substances; Z88.5 Allergy status to narcotic agent; Z91.040 Latex allergy status; Z88.0 Allergy status to penicillin

== ENCOUNTER → 2017-04-20 | Outpatient (REF) | payer OTHER ==
[~2017-04-20] MED LIST changes: +BUTR10DI TD; -BUTR10DI2 TD; +BUTR20DI TD; -BUTR20DI2 TD; +FERR1TAB8 PO; -FERR325T PO; +HYDR-3363 PO; -HYDR25T PO; -PROA1AER INH; +PROAAER10 INH; -REQU0.5T PO; +REQU1TAB15 PO; +SALI0.6523; -SALI0.653; -SILV1CRE19 TOP; +SILV1CRE60 TOP; -VITA100037 PO; +VITA100067 PO
[2017-04-20 19:20] LABS: PERCENT SATURATION 47.2 % (19.7-37.4)
== END ==
LOC: M LAB REF 17:30
PROVIDERS: ATTEND Internal Medicine Nephrology
DX: D50.9 Iron deficiency anemia, unspecified (principal)
CPT/HCPCS: 82728; 83550; 85610; G0463

== ENCOUNTER 2017-06-21 14:11 | Emergency (ER) | payer OTHER ==
[~2017-06-21] VITALS: Ht 172.7 cm; Wt 92.2 kg
[2017-06-21] MEDS ORDERED: MORPHINE 4 MG/ML 1ML SYRINGE IM ONE (15:00)
[2017-06-21] MEDS ORDERED: NORCO, ANEXSIA 5/325MG TABLET (HYDROcodone/ACETAMINOPHEN) PO ONE (15:45)
[2017-06-21] MEDS ORDERED: NORC1TAB4 PO (16:01)
[2017-06-21 16:13] VITALS: BP 168/78
== END 2017-06-21 16:14 | disposition home or self-care (01) ==
LOC: M ED 14:11
DX: S32.020A Wedge compression fracture of second lumbar vertebra, initial encounter for closed fracture (principal); W01.198A Fall on same level from slipping, tripping and stumbling with subsequent striking against other object, initial encounter; Y92.099 Unspecified place in other non-institutional residence as the place of occurrence of the external cause; Y93.89 Activity, other specified; Y99.9 Unspecified external cause status; I10 Essential (primary) hypertension; E10.9 Type 1 diabetes mellitus without complications; N40.0 Benign prostatic hyperplasia without lower urinary tract symptoms; J45.909 Unspecified asthma, uncomplicated; Z79.01 Long term (current) use of anticoagulants; Z86.718 Personal history of other venous thrombosis and embolism
CPT/HCPCS: 96372; 99282; G0463

== ENCOUNTER → 2017-06-21 | Outpatient (CLI) | payer OTHER ==
--- NOTE | 2017-06-21 13:34 | REP ---
SACRUM AND COCCYX SERIES: THREE VIEWS. HISTORY: Pain after a fall. FINDINGS: No sacral or coccygeal fracture is seen. Presacral soft tissues are not widened. SI joints are unremarkable. IMPRESSION: No fracture noted. Signed by Jordy Garcia MD 06/21/2017 02:49 P
--- NOTE | 2017-06-21 13:36 | REP ---
LUMBAR SPINE SERIES: Five views. HISTORY: Acute left-sided low back pain. Injury in a fall. FINDINGS: Five views of the lumbar spine demonstrate wedge compression fracture deformity at the L2 vertebral body with 25% loss of vertebral body heights. There is some sclerosis at the superior endplate, which may reflect early healing. The collapse of the superior endplate and L2 is new when compared with lateral chest x-ray from March 16, 2017. Vascular calcification is noted in a normal caliber aorta. Vertebral body heights are otherwise preserved. There is diffuse degenerative disc disease throughout the lumbar spine. Bowel gas pattern is unremarkable. Psoas margins are symmetric. IMPRESSION: Recent wedge compression fracture deformity at L2 with 25% loss of anterior vertebral body heights. Sclerotic changes at the superior endplate may reflect early healing. No radiographic evidence of posterior element involvement. Signed by Jordy Garcia MD 06/21/2017 02:49 P
== END ==
LOC: M LRY 12:36
PROVIDERS: ATTEND Nurse Practitioner Family
DX: S32.020A Wedge compression fracture of second lumbar vertebra, initial encounter for closed fracture (principal); W10.2XXA Fall (on)(from) incline, initial encounter; Y93.89 Activity, other specified; Y92.007 Garden or yard of unspecified non-institutional (private) residence as the place of occurrence of the external cause; Y99.8 Other external cause status

== ENCOUNTER → 2017-08-05 | Outpatient (REF) | payer OTHER ==
[2017-08-08 00:06] LABS: FREE LAMBDA LIGHT CHAINS SERUM 71.5 mg/L (5.7-26.3); KAPPA/LAMBDA RATIO SERUM 0.87 (0.26-1.65)
== END ==
LOC: M LAB REF 16:54
PROVIDERS: ATTEND Internal Medicine Nephrology
DX: R80.9 Proteinuria, unspecified (principal)

== ENCOUNTER → 2017-09-06 | Outpatient (CLI) | payer OTHER ==
--- NOTE | 2017-09-23 01:21 | ECWPNPC ---
PATIENT NAME: YOVANI VALLEJO : 1950 GENDER: MALE VISIT DATE: 09/06/2017 DISCHARGE DATE: 09/06/17 1517 VISIT LOCKED DATE TIME: PHYSICIAN: SAVANNA PARR RESOURCE: SAVANNA PARR REASON FOR APPOINTMENT 1. BACK AND FOOT PAIN HISTORY OF PRESENT ILLNESS HISTORY OF PRESENT ILLNESS: HERE FOR F/U AND MEDICINE MANAGEMENT OF CHRONIC LOW BACK PAIN.RATING PAIN VAS 4/10.USING BUTRANS PATCH 20MCG Q 7 DAYS .FINDS MEDICATION HELPFUL.DENIES SIDE EFFECTS.HAS BEEN TAKEN OFF ROPINEROLE AND PLACED ON TRAZEDONE PER PRIMARY CARE.RECENTLY FRACTURED LUMBAR VERTEBRAE AFTER A FALL INJURY 11 WEEKS AGO.APPESRS AGITATED TODAY AND ANXIOUS TO LEAVE. PAIN THE PATIENT DESCRIBES THE PAIN... THE PATIENT DESCRIBES THE PAIN... FALL RISK SCREENING: SCREENING :NO FALLS IN THE PAST YEAR CURRENT MEDICATIONS TAKING DRISDOL 50,000 UNITS TABLET 1 CAPSULE ORALLY ONCE A WEEK TAKING GLUCAGON EMERGENCY 1 MG KIT DIRECTED INJECTION DAILY NEEDED TAKING FISH OIL 1000 MG CAPSULE 1 CAP(S) ORALLY THREE TIMES A DAY TAKING PEN NEEDLES 31G X 5 MM ULTRA FINE 1 EACH INTRADERMALLY DIAG CODE 250.60 FOUR TIMES A DAY TAKING COBAN SELF-ADHERENT WRAP 1 MISCELLANEOUS TO WOUND TOPICAL DAILY, NEEDED TAKING TAMSULOSIN HCL 0.4 MG CAPSULE EXTENDED RELEASE 24 HOUR 1 CAPSULE 30 MINUTES AFTER THE SAME MEAL EACH DAY ORALLY ONCE A DAY TAKING FULL KIT NEBULIZER SET - MISCELLANEOUS DIRECTED DX J44.9 (COPD) DAILY TAKING MECLIZINE HCL 25 MG TABLET 1 TABLET ORALLY ONCE A DAY NEEDED FOR VERTIGO TAKING MIRALAX - PACKET 1 PACKET MIXED WITH 8 OUNCES OF FLUID TWICE DAILY TAKING PATADAY 0.2 % SOLUTION DIRECTED OPHTHALMIC ONCE DAILY TAKING LANTUS 100 UNIT/ML SOLUTION TWICE A DAY SUBCUTANEOUS 12 UNITS IN AM 24 PM TAKING NOVOLOG 100 UNIT/ML SOLUTION SUBCUTANEOUS 12 UNITS IN AM, 10 UNITS LUNCH AND 17 UNITS DINNER TAKING ALBUTEROL SULFATE (2.5 MG/3ML) 0.083% NEBULIZATION SOLUTION 3 ML INHALATION EVERY 4 HRS NEEDED TAKING PROVENTIL HFA 108 (90 BASE) MCG/ACT AEROSOL SOLUTION 2 PUFFS INHALATION EVERY 4 HOURS NEEDED TAKING INCRUSE ELLIPTA 62.5 MCG/INH AEROSOL POWDER BREATH ACTIVATED INHALE 1 PUFF ONCE A DAY TAKING NORVASC 2.5 MG TABLET 1 TABLET ORALLY ONCE A DAY TAKING COUMADIN 7.5 MG TABLET 1 TABLET SUN, , SAT. 5MG ROW ORALLY WEDNESDAYS 5 MGS REST OF WEEK TAKING BUTRANS 20 MCG/HR PATCH WEEKLY 1 PATCH TO SKIN TRANSDERMAL APPLY 1 PATCH Q 7 DAYS MDD=1 TAKING LIPITOR 40 MG TABLET 1 TABLET ORALLY ONCE A DAY TAKING ADVAIR DISKUS 500-50 MCG/DOSE AEROSOL POWDER BREATH ACTIVATED 1 PUFF INHALATION TWICE A DAY TAKING OMEPRAZOLE 20 MG CAPSULE DELAYED RELEASE 1 CAP(S) ORALLY DAILY TAKING TRAZODONE HCL 100 MG TABLET 1 TABLET AT BEDTIME ORALLY ONCE A DAY TAKING ZOFRAN ODT 4 MG TABLET DISINTEGRATING 1 TABLET ON THE TONGUE AND ALLOW TO DISSOLVE ORALLY EVERY 8 HRS TAKING FLONASE ALLERGY RELIEF 50 MCG/ACT SUSPENSION 1 SPRAY IN EACH NOSTRIL NASALLY TWICE A DAY TAKING AZELASTINE HCL 0.1 % SOLUTION 1 PUFF IN EACH NOSTRIL NASALLY TWICE A DAY TAKING SALINE NASAL SPRAY 0.65 % SOLUTION 2 SPRAYS EACH NOSTRIL NASALLY FOUR TIMES DAILY NEEDED TAKING SINGULAIR 10 MG TABLET 1 TABLET IN THE EVENING ORALLY ONCE A DAY TAKING ALCLOMETASONE DIPROPIONATE 0.05 % OINTMENT 1 APPLICATION TO AFFECTED AREA EXTERNALLY ONCE A DAY TAKING HYDROXYZINE HCL 25 MG TABLET 1 TABLET NEEDED ORALLY EVERY 8 HRS TAKING NORCO 5-325 MG TABLET 1 TABLET NEEDED ORALLY EVERY 6 HRS MDD =4 TAKING FERROUS SULFATE 325 (65 FE) MG TABLET 1 TABLET ORALLY ONCE A DAY TAKING CYMBALTA 60 MG CAPSULE DELAYED RELEASE PARTICLES 1 CAPSULE ORALLY ONCE A DAY TAKING CLOBETASOL PROPIONATE 0.05 % OINTMENT 1 APPLICATION TO AFFECTED AREA ON LEGS AND ARMS EXTERNALLY TWICE A DAY NEEDED NOT-TAKING MIRALAX PACKET 1 PACKET ORALLY DAILY, NOTES: DUPLICATE MEDICATION LIST REVIEWED AND RECONCILED WITH THE PATIENT PAST MEDICAL HISTORY DVT CHRONIC PHLEBITIS CHRONIC VENOUS INSUFFICIENCY PERIPHERAL NEUROPATHY TYPE 2 DIABETES--DR Amisha PRADO HYPERLIPIDEMIA HTN COPD HX OF DEPRESSION DDD/DJD GERD DERMATITIS HERPETIFORMIS-- + BX 05/03 DR MCDONALD ADENOMATOUS COLON POLYP 2009 RESTLESS LEG SYNDROME GLUTEN INTOLERANT (NOT CELIAC DIS-- NEG SB BX 06/03--BUT HAS DERMATITIS HERPETIFORMIS-- + BX 05/03 DR MCDONALD) RIGTH SHOULDER NERVE IMPINGEMENT/RIGHT CARPEL TUNNEL - DR. PRADO GORDON ON CPAP SUBCLINICAL HYPOTHYROIDISM 06/07 DIVERTICULOSIS 01/2016 KIDNEY DISEASE L2 VERTERAE FX ALLERGIES ACTOS: EDEMA: SIDE EFFECTS DEMEROL: HIVES: ALLERGY DILANTIN: ANAPHYLAXIS: ALLERGY GLUCOPHAGE: RASH: ALLERGY LEVAQUIN: HEAD ACHE: SIDE EFFECTS PHENOBARBITAL: ANAPHYLAXIS: ALLERGY TEGRETOL: ANAPHYLAXIS: ALLERGY PENICILLIN (FOR ALLERGIES USE ONLY): HIVES: ALLERGY TRIPLE ANTIBIOTIC: FACIAL SWELLING: ALLERGY REQUIP: ELEVATED LIVER ENZYMES LATEX (FOR ALLERGY USE ONLY): RASH: ALLERGY CRESTOR: HEADACHE LYRICA: DIDN'T WORK: SIDE EFFECTS CAPSACIN (TOPICALLY): EXCESSIVE BURNING: SIDE EFFECTS LISINOPRIL: RASH: SIDE EFFECTS GABAPENTIN: DIDN'T WORK: LACK OF THERAPEUTIC EFFECT DAPSONE: ANEMIA: SIDE EFFECTS NSAIDS: CONTRAINDICATION BEES: ANAPHYLAXIS: ALLERGY SURGICAL HISTORY CERVICAL SPINE FUSION 06/2003 L ARM BREAK REPAIR 11/1981 R LEG BREAK REPAIR 02/1982 COLONSOCOPY (ADENOMATOUS POLYP 2009) 2003,2009 EGD 2009 ENDOSCOPY AND COLONOSCOPY 2015DEC 13 SOCIAL HISTORY GENERAL: TOBACCO USE ARE YOU A: NONSMOKER . BMI CARE GOAL FOLLOW-UP ABOVE NORMAL BMI FOLLOW-UPDIETARY MANAGEMENT EDUCATION, GUIDANCE, AND COUNSELING ALCOHOL SCREENING DID YOU HAVE A DRINK CONTAINING ALCOHOL IN THE PAST YEAR?NO POINTS0 INTERPRETATIONNEGATIVE RECREATIONAL DRUG USE DRUG USE?NO CAFFEINE CAFFEINE USE?YES 3 DAY SEXUAL HX HAD SEX IN THE LAST 12 MONTHS (VAGINAL, ORAL, OR ANAL)?NO HAVE YOU EVER HAD AN STD?NO HIV / HEP-C SCREENING HIV TEST OFFERED TO PATIENT:YES DATE OFFERED:02/08/2017 TEST ACCEPTED:NO HEP-C TEST OFFERED TO PATIENT:YES DATE OFFERED:02/08/2017 REASON:PATIENT DECLINED TEST ACCEPTED:NO REASON:PATIENT DECLINED OCCUPATION: DISABLED. DIET: NO ADDED SALT, LOW FAT, LOW CHOLESTEROL. EXERCISE: NONE. MARITAL STATUS: . OTHERS AT HOME: SPOUSE. PETS: NONE. VOODOO [id number] CONGREGATIONAL LANGUAGE LANGUAGES SPOKEN:ARABIC EDUCATION LEVEL OF EDUCATION:NOT FINISHED HIGH SCHOOL LEARNING BARRIERS / SPECIAL NEEDS CHANGE FROM LAST VISIT?NO BARRIERS TO LEARNING?NO HEARING IMPAIRED?NO VISION IMPAIRED?YES COGNITIVELY IMPAIRED?NO :CORRECTIVE LENSES READINESS TO LEARN?YES LEARNING PREFERENCES?YES :DEMONSTRATION/VERBAL INSTRUCTION LEARNING CAPABILITIES PRESENT?YES EMOTIONAL BARRIERS?NO SPECIAL DEVICES?NO FRUIT PACKER NEEDED?NO NEW PATIENT PAIN DIARY TODAY'S VISIT NOTES, FROM 0-10, WHAT LEVEL IS YOUR PAIN TODAY? 0. PAIN CLINIC PFS, CLERGY, PUBLIC HEALTH REFERRALS PFS REFERRAL NEEDED? NO, CLERGY REFERRAL NEEDED? NO, PUBLIC HEALTH REFERRAL NEEDED? NO, WAS THE PROVIDER NOTIFIED OF ANY PERTINENT INFO? NO, PFS REFERRAL NEEDED? NO, CLERGY REFERRAL NEEDED? NO, PUBLIC HEALTH REFERRAL NEEDED? NO, WAS THE PROVIDER NOTIFIED OF ANY PERTINENT INFO? NO. ADVANCE DIRECTIVES HEALTH CARE PROXY?NO DO YOU HAVE A DNR?NO LIVING WILL?NO POWER OF CHECKING DEPARTMENT SUPERVISOR?NO TRAVEL OUTSIDE US: NO. HOUSING: OWNS HOME. DOMESTIC VIOLENCE NONE. HOSPITALIZATION/MAJOR DIAGNOSTIC PROCEDURE CERVICAL SPINE FUSION SX 06/2003 L ARM BREAK REAPIR SX 11/1981 R LEG BREAK REPAIR SX 02/1982 PNEUMONIA 03/2009 BOWEL IMPACTION 09/2009 REVIEW OF SYSTEMS REVIEWED BY: PROVIDER: SAVANNA PATEL . CONSTITUTIONAL: ANY CHANGE IN YOUR MEDICAL CONDITION? YES, BACK BRACE IN PLACE FOR FX VERTEBRAE . CHILLS NO . FEVER NO . INFECTION: DO YOU HAVE NEW INFECTIONS? NO . DO YOU HAVE HISTORY OF MRSA? NO . MUSCULOSKELETAL: ANY NEW PATTERNS OF PAIN OR NUMBNESS? NO . GASTROENTEROLOGY: ANY NEW CHANGE IN BOWEL CONTROL? NO . GENITOURINARY: ANY NEW CHANGE IN BLADDER CONTROL? NO . IS THERE A CHANCE YOU COULD BE ? NO . HEMATOLOGY/LYMPH: DO YOU TAKE ANY BLOOD THINNERS? (FOR EXAMPLE- COUMADIN, PLAVIX, AGGRENOX, PLATEL, PRADAXA, OR XARELTO) YES, COUMADIN . WHEN WAS YOUR LAST DOSE? DATE: TIME: . NEUROLOGY: HAVE YOU FALLEN IN THE PAST 6 MONTHS? YES, PT REPORTS A FALL ABOUT 11 WEEKS AGO. PT FOUND BEES IN [place], SPRAYED FOR THEM, WENT TO TAKE THEM OUT OF [place] AND SOME WERE STILL ALIVE. PT RAN OUT OF [place] HE IS ALLERGIC TO BEES, TRIPPED AND FELL. PT WAS SEEN AT [facility], NOW HE WEARS A BRACE FOR FX VERTEBRAE . ANY NEW EXTREMITY NUMBNESS OR WEAKNESS? NO . CARDIOLOGY: DO YOU HAVE A PACEMAKER OR DEFIBRILLATOR? NO . RESPIRATORY: HAVE YOU BEEN SICK IN THE PAST WEEK? YES, COLD S/S . FEVER NO . FLU LIKE SYMPTOMS? NO . COUGH NO . INTEGUMENTARY: DO YOU HAVE ANY RASHES OR OPEN SORES? YES, OPEN SORES ALL OVER INTERMITTENT, NO ONE SEEMS TO KNOW WHAT IT IS . ALLERGIC/IMMUNO: ARE YOU ALLERGIC TO SHELLFISH OR IV DYE? NO . ANY NEW ALLERGIES? NO . PSYCHIATRIC: DO YOU HAVE THOUGHTS OF HURTING YOURSELF OR SOMEONE ELSE? NO . ARE YOU ABUSED, NEGLECTED, OR IN AN UNSAFE ENVIRONMENT? NO . ENDOCRINOLOGY: ARE YOU DIABETIC? YES . OTHER: DO YOU NEED ANY PRESCRIPTIONS? NO . IF YES, PLEASE LIST: ____ . ANY NEW PROBLEMS WITH YOUR MEDICATIONS? NO . WHEN DID YOU LAST EAT? ____ . WHEN DID YOU LAST DRINK? ____ . WHAT DID YOU LAST DRINK? ____ . NAME OF PERSON DRIVING YOU HOME? ____ . DO YOU HAVE ANY OTHER QUESTIONS OR CONCERNS NO . VITAL SIGNS WT 197 LBS, HT 69 IN, BMI 29.09 INDEX, BP 151/74 MM HG, HR 78 /MIN, RR 18 /MIN, TEMP 98 F, OXYGEN SAT % 97%, NA INITIALS SC 14:13, REVIEWED BY: JOÃO. EXAMINATION GENERAL EXAMINATION: LUNGS:LUNG SOUNDS ARE CLEAR. HEART:HEART RATE REGULAR. MUSCULOSKELETAL:*PALPATION: NEGATIVE FOR PAIN OVER L/S SPINE. NEGATIVE FOR PAIN OVER L/S PARASPINALS. MUSCLE STRENGTH TESTING 5/5 BLE. ASSESSMENTS DIABETIC PERIPHERAL NEUROPATHY - E11.42 (PRIMARY) TREATMENT DIABETIC PERIPHERAL NEUROPATHY REFILL BUTRANS PATCH WEEKLY, 20 MCG/HR, 1 PATCH TO SKIN, TRANSDERMAL, APPLY 1 PATCH Q 7 DAYS MDD=1, 30 DAY(S), 4, REFILLS 2 NOTES: ISTOP REGISTRY REVIEWED [id number] AND DEMNOSTRATES COMPLLIANCE. URINE TOX TODAYPATIENT WALKED OUT OF CLINIC AND REFUSED TO WAIT FOR NURSING TO DO URINE. PROCEDURE CODES FA211 ESTABILISHED PATIENT [facility] CHARGE DISPOSITION & COMMUNICATION FOLLOW UP 2 MONTHS ELECTRONICALLY SIGNED BY JORGE HELLER ON 09/20/2017 AT 08:24 PM EST DISCLAIMER : THIS IS A VISIT SUMMARY EXTRACTED FROM THE [employer] CHART. IT IS NOT A COPY OF THE [employer] PROGRESS NOTE. JOVANNA
== END ==
LOC: M PAIN 14:15
PROVIDERS: ATTEND Nurse Practitioner Family
DX: G89.29 Other chronic pain (principal); E11.42 Type 2 diabetes mellitus with diabetic polyneuropathy; M54.5 Low back pain; I87.2 Venous insufficiency (chronic) (peripheral); E78.5 Hyperlipidemia, unspecified; I10 Essential (primary) hypertension; J44.9 Chronic obstructive pulmonary disease, unspecified; K21.9 Gastro-esophageal reflux disease without esophagitis; G25.81 Restless legs syndrome; G47.33 Obstructive sleep apnea (adult) (pediatric); K57.90 Diverticulosis of intestine, part unspecified, without perforation or abscess without bleeding; S32.029D Unspecified fracture of second lumbar vertebra, subsequent encounter for fracture with routine healing; E02 Subclinical iodine-deficiency hypothyroidism; Z98.1 Arthrodesis status; Z88.0 Allergy status to penicillin; Z88.8 Allergy status to other drugs, medicaments and biological substances; Z91.040 Latex allergy status; Z91.030 Bee allergy status; Z88.1 Allergy status to other antibiotic agents; Z88.6 Allergy status to analgesic agent; Z79.891 Long term (current) use of opiate analgesic; Z79.01 Long term (current) use of anticoagulants; Z79.4 Long term (current) use of insulin; Z79.899 Other long term (current) drug therapy; W18.09XD Striking against other object with subsequent fall, subsequent encounter

== ENCOUNTER → 2017-10-21 | Outpatient (REF) | payer OTHER ==
[2017-10-21 18:21] LABS: ALBUMIN 3.3 GM/DL (3.2-5.2); ALBUMIN/GLOBULIN RATIO 0.94 (1.00-1.93); ALKALINE PHOSPHATASE 97 U/L (45-117); ALT/SGPT 42 U/L (12-78); AMYLASE 57 U/L (25-115); ANION GAP 8 MEQ/L (8-16); AST/SGOT 26 U/L (7-37); BILIRUBIN,TOTAL 0.3 MG/DL (0.2-1.0); BLOOD UREA NITROGEN 45 MG/DL (7-18); CALCIUM LEVEL 8.6 MG/DL (8.8-10.2); CARBON DIOXIDE LEVEL 23 MEQ/L (21-32); CHLORIDE LEVEL 107 MEQ/L (98-107); CREATININE FOR GFR 2.69 MG/DL (0.70-1.30); GLOMERULAR FILTRATION RATE 25.4 (>49); GLUCOSE, FASTING 70 MG/DL (80-110); POTASSIUM SERUM 4.8 MEQ/L (3.5-5.1); SODIUM LEVEL 138 MEQ/L (136-145); TOTAL PROTEIN 6.8 GM/DL (6.4-8.2)
[2017-10-21 18:46] LABS: BASO # 0.1 10^3/uL (0.0-0.2); BASO % 0.5 % (0.0-1.0); EOS # 0.9 10^3/uL (0.0-0.50); EOS % 8.6 % (0.0-3.0); IMMATURE GRANULOCYTE # 0.1 10^3/uL (0-0); IMMATURE GRANULOCYTE % 0.7 % (0-0); LYMPH # 2.4 10^3/uL (1.5-4.5); LYMPH % 22.9 % (24.0-44.0); MEAN CORPUSCULAR HEMOGLOBIN 30.5 pg (27.0-33.0); MEAN CORPUSCULAR HGB CONC 33.2 g/dl (32.0-36.5); MEAN CORPUSCULAR VOLUME 91.9 fl (80.0-96.0); MONO # 0.8 10^3/uL (0.0-0.8); MONO % 7.4 % (0.0-5.0); NEUTROPHILS # 6.2 10^3/uL (1.8-7.7); NEUTROPHILS % 59.9 % (36.0-66.0); PLATELET COUNT, AUTOMATED 339 10^3/uL (150-450); RED CELL DISTRIBUTION WIDTH 12.7 % (11.5-14.5); WHITE BLOOD COUNT 10.4 10^3/uL (4.0-10.0)
== END ==
LOC: M SFHCPLAZ 14:50
DX: Z51.81 Encounter for therapeutic drug level monitoring (principal); Z79.899 Other long term (current) drug therapy; R11.2 Nausea with vomiting, unspecified; R10.13 Epigastric pain
CPT/HCPCS: 82150

== ENCOUNTER → 2017-10-22 | Outpatient (CLI) | payer OTHER | LOC: M RAD 07:29 | DX: R11.2 Nausea with vomiting, unspecified (principal); N28.1 Cyst of kidney, acquired; R93.3 Abnormal findings on diagnostic imaging of other parts of digestive tract | CPT/HCPCS: 76705 ==

== ENCOUNTER → 2017-12-06 | Outpatient (REF) | payer OTHER ==
[2017-12-06 20:58] LABS: FERRITIN 62 NG/ML (26-388); IRON (FE) 81 UG/DL (65-175); PERCENT SATURATION 32.8 % (19.7-50.0); TOTAL IRON BINDING CAPACITY 247 UG/DL (250-450)
== END ==
LOC: M LAB REF 18:41
DX: D50.9 Iron deficiency anemia, unspecified (principal)
CPT/HCPCS: 83550

== ENCOUNTER → 2018-01-10 | Outpatient (CLI) | payer OTHER | LOC: M RAD 08:02 | DX: K31.84 Gastroparesis (principal) | CPT/HCPCS: 78264 ==

== ENCOUNTER → 2018-03-16 | Outpatient (CLI) | payer OTHER | LOC: M RAD 07:20 | DX: K82.8 Other specified diseases of gallbladder (principal); R11.2 Nausea with vomiting, unspecified | CPT/HCPCS: J2805 ==

== ENCOUNTER → 2018-03-22 | Outpatient (CLI) | payer OTHER | LOC: M PAIN 13:45 | DX: M54.5 Low back pain (principal); G89.29 Other chronic pain; E11.42 Type 2 diabetes mellitus with diabetic polyneuropathy; E78.5 Hyperlipidemia, unspecified; I12.9 Hypertensive chronic kidney disease with stage 1 through stage 4 chronic kidney disease, or unspecified chronic kidney disease; J44.9 Chronic obstructive pulmonary disease, unspecified; K21.9 Gastro-esophageal reflux disease without esophagitis; L13.0 Dermatitis herpetiformis; G25.81 Restless legs syndrome; K90.41 Non-celiac gluten sensitivity; G47.33 Obstructive sleep apnea (adult) (pediatric); N18.4 Chronic kidney disease, stage 4 (severe); Z79.01 Long term (current) use of anticoagulants; Z79.4 Long term (current) use of insulin; Z79.51 Long term (current) use of inhaled steroids; Z79.891 Long term (current) use of opiate analgesic; Z79.899 Other long term (current) drug therapy; Z88.0 Allergy status to penicillin; Z88.1 Allergy status to other antibiotic agents; Z88.6 Allergy status to analgesic agent; Z88.8 Allergy status to other drugs, medicaments and biological substances; Z91.030 Bee allergy status; Z91.040 Latex allergy status; Z86.718 Personal history of other venous thrombosis and embolism; Z86.39 Personal history of other endocrine, nutritional and metabolic disease | CPT/HCPCS: G0463 ==

== ENCOUNTER 2018-03-28 09:26 | Day surgery (SDC) | payer OTHER ==
[2018-03-28] MEDS: NS 1,000 ML IV (10:43)
[2018-03-28 11:10] LABS: BEDSIDE GLUCOSE 137 MG/DL (80-115)
[2018-03-28] MEDS ORDERED: PROPOFOL 200 MG/20 ML VIAL As Ordered (11:31)
[2018-03-28] MEDS ORDERED: LIDOCAINE 2% INJ 100 MG/5 ML SYRINGE As Ordered (11:31)
[2018-03-28] MEDS ORDERED: fentaNYL 100 MCG/2 ML INJECTION (J3010) As Ordered (11:31)
== END 2018-03-28 12:57 | disposition home or self-care (01) ==
LOC: M OPP 12:57
DX: Z09 Encounter for follow-up examination after completed treatment for conditions other than malignant neoplasm (principal); K90.0 Celiac disease; R11.2 Nausea with vomiting, unspecified; K22.8 Other specified diseases of esophagus; K44.9 Diaphragmatic hernia without obstruction or gangrene; I12.9 Hypertensive chronic kidney disease with stage 1 through stage 4 chronic kidney disease, or unspecified chronic kidney disease; E78.5 Hyperlipidemia, unspecified; E11.9 Type 2 diabetes mellitus without complications; K21.9 Gastro-esophageal reflux disease without esophagitis; D64.9 Anemia, unspecified; Z86.718 Personal history of other venous thrombosis and embolism; G62.9 Polyneuropathy, unspecified; M19.90 Unspecified osteoarthritis, unspecified site; F41.9 Anxiety disorder, unspecified; F32.9 Major depressive disorder, single episode, unspecified; R51 Headache; J44.9 Chronic obstructive pulmonary disease, unspecified; G47.30 Sleep apnea, unspecified; N18.4 Chronic kidney disease, stage 4 (severe); L30.9 Dermatitis, unspecified; Z98.1 Arthrodesis status; Z88.8 Allergy status to other drugs, medicaments and biological substances; Z88.1 Allergy status to other antibiotic agents; Z91.040 Latex allergy status; Z88.5 Allergy status to narcotic agent; Z88.0 Allergy status to penicillin; Z79.01 Long term (current) use of anticoagulants; Z79.4 Long term (current) use of insulin; Z80.9 Family history of malignant neoplasm, unspecified
CPT/HCPCS: 43239

== ENCOUNTER → 2018-04-21 | Outpatient (CLI) | payer OTHER | LOC: M PAIN 14:00 | DX: E11.42 Type 2 diabetes mellitus with diabetic polyneuropathy (principal); M54.5 Low back pain; E11.22 Type 2 diabetes mellitus with diabetic chronic kidney disease; E78.5 Hyperlipidemia, unspecified; I12.9 Hypertensive chronic kidney disease with stage 1 through stage 4 chronic kidney disease, or unspecified chronic kidney disease; J44.9 Chronic obstructive pulmonary disease, unspecified; F32.9 Major depressive disorder, single episode, unspecified; K21.9 Gastro-esophageal reflux disease without esophagitis; G25.81 Restless legs syndrome; K90.0 Celiac disease; G47.33 Obstructive sleep apnea (adult) (pediatric); E03.9 Hypothyroidism, unspecified; N18.4 Chronic kidney disease, stage 4 (severe); Z79.01 Long term (current) use of anticoagulants; Z79.4 Long term (current) use of insulin; Z79.899 Other long term (current) drug therapy; Z88.0 Allergy status to penicillin; Z88.5 Allergy status to narcotic agent; Z88.6 Allergy status to analgesic agent; Z88.8 Allergy status to other drugs, medicaments and biological substances; Z91.030 Bee allergy status; Z91.040 Latex allergy status | CPT/HCPCS: G0463 ==

== ENCOUNTER → 2018-05-10 | Outpatient (REF) | payer OTHER ==
[2018-05-10 12:06] LABS: CHOLESTEROL LEVEL 153 MG/DL (<200); CHOLESTEROL RISK RATIO 4.135 (<5); HDL CHOLESTEROL 37 MG/DL (>40); LDL CHOLESTEROL 84.8 MG/DL (<100); NON-HDL-C 116 MG/DL; TRIGLYCERIDES LEVEL 156 MG/DL (<150)
== END ==
LOC: M SFHCPLAZ 08:47
DX: E11.9 Type 2 diabetes mellitus without complications (principal); E78.2 Mixed hyperlipidemia
CPT/HCPCS: 80061

== ENCOUNTER → 2018-07-05 | Outpatient (CLI) | payer OTHER | LOC: M PAIN 13:30 | DX: E11.42 Type 2 diabetes mellitus with diabetic polyneuropathy (principal); E11.51 Type 2 diabetes mellitus with diabetic peripheral angiopathy without gangrene; E78.5 Hyperlipidemia, unspecified; I12.9 Hypertensive chronic kidney disease with stage 1 through stage 4 chronic kidney disease, or unspecified chronic kidney disease; J44.9 Chronic obstructive pulmonary disease, unspecified; K21.9 Gastro-esophageal reflux disease without esophagitis; G25.81 Restless legs syndrome; K90.0 Celiac disease; G47.33 Obstructive sleep apnea (adult) (pediatric); N18.4 Chronic kidney disease, stage 4 (severe); E11.22 Type 2 diabetes mellitus with diabetic chronic kidney disease; Z98.1 Arthrodesis status; Z79.01 Long term (current) use of anticoagulants; Z79.891 Long term (current) use of opiate analgesic; Z79.4 Long term (current) use of insulin; Z79.899 Other long term (current) drug therapy; Z86.718 Personal history of other venous thrombosis and embolism; Z88.0 Allergy status to penicillin; Z88.1 Allergy status to other antibiotic agents; Z88.8 Allergy status to other drugs, medicaments and biological substances; Z91.040 Latex allergy status; Z88.6 Allergy status to analgesic agent; Z91.030 Bee allergy status | CPT/HCPCS: G0463 ==

== ENCOUNTER → 2018-08-09 | Outpatient (REF) | payer OTHER ==
[2018-08-09 17:39] LABS: BASO # 0.1 10^3/uL (0.0-0.2); BASO % 0.8 % (0.0-1.0); EOS # 0.8 10^3/uL (0.0-0.50); EOS % 10.8 % (0.0-3.0); HEMATOCRIT 35.4 % (42.0-52.0); HEMOGLOBIN 11.3 g/dl (13.5-17.5); IMMATURE GRANULOCYTE % 0.3 % (0-3.0); LYMPH # 1.8 10^3/uL (1.5-4.5); LYMPH % 24.7 % (24.0-44.0); MEAN CORPUSCULAR HEMOGLOBIN 28.8 pg (27.0-33.0); MEAN CORPUSCULAR HGB CONC 31.9 g/dl (32.0-36.5); MEAN CORPUSCULAR VOLUME 90.3 fl (80.0-96.0); MONO # 0.5 10^3/uL (0.0-0.8); MONO % 6.8 % (0.0-5.0); NEUTROPHILS # 4.1 10^3/uL (1.8-7.7); NEUTROPHILS % 56.6 % (36.0-66.0); PLATELET COUNT, AUTOMATED 239 10^3/uL (150-450); RED BLOOD COUNT 3.92 10^6/uL (4.30-6.10); RED CELL DISTRIBUTION WIDTH 13.6 % (11.5-14.5); WHITE BLOOD COUNT 7.2 10^3/uL (4.0-10.0)
[2018-08-09 17:45] LABS: IRON (FE) 168 UG/DL (65-175); PERCENT SATURATION 67.7 % (19.7-50.0); TOTAL IRON BINDING CAPACITY 248 UG/DL (250-450)
[2018-08-09 17:56] LABS: TOTAL 25(OH) VITAMIN D 23.8 NG/ML (30.0-100.0)
== END ==
LOC: M LABDRAW1 17:13
DX: D50.9 Iron deficiency anemia, unspecified (principal); K90.0 Celiac disease; Z23 Encounter for immunization
CPT/HCPCS: 83550

== ENCOUNTER → 2018-09-27 | Outpatient (CLI) | payer OTHER | LOC: M RAD 10:38 | DX: N18.9 Chronic kidney disease, unspecified (principal); E78.5 Hyperlipidemia, unspecified; J44.9 Chronic obstructive pulmonary disease, unspecified; I12.9 Hypertensive chronic kidney disease with stage 1 through stage 4 chronic kidney disease, or unspecified chronic kidney disease; E11.9 Type 2 diabetes mellitus without complications; Z79.01 Long term (current) use of anticoagulants; N40.0 Benign prostatic hyperplasia without lower urinary tract symptoms; Z87.891 Personal history of nicotine dependence; K21.9 Gastro-esophageal reflux disease without esophagitis | CPT/HCPCS: G0365 ==

== ENCOUNTER → 2018-10-04 | Outpatient (CLI) | payer OTHER ==
[~2018-10-04] MED LIST changes: +ADVA230A INH; +AMLO10TA4 PO; -AMLO5TAB2 PO; +AMLO5TAB4 PO; +CALC1CAP31 PO; -DRIS50002 PO; +DRIS50003 PO; +FLOM0.4C39 PO; -FLOM5CAP PO; -GABA-283 PO; +GABA-845 PO; +LEVOTAB10 PO; +PANT40TA3 PO; +PRAM0.126 PO; +PROC20004 IJ; -SALI0.6523; +SALI0.6528; +TRAZ-160 PO; +ZOFR4TAB14 PO; -ZOFR4TAB3 PO
--- NOTE | 2018-10-27 01:33 | ECWPNPC ---
PATIENT NAME: YOVANI VALLEJO : 1950 GENDER: MALE VISIT DATE: 10/04/2018 DISCHARGE DATE: 10/04/18 1337 VISIT LOCKED DATE TIME: PHYSICIAN: SAVANNA PARR RESOURCE: SAVANNA PARR REASON FOR APPOINTMENT 1. FOOT/LEGS HISTORY OF PRESENT ILLNESS DEPRESSION SCREENING: PHQ-2 IN LAST TWO WEEKS HAVE YOU BEEN BOTHERED BY LITTLE INTEREST OR PLEASURE IN DOING THINGSNO FEELING DOWN, DEPRESSED, OR HOPELESSNO HISTORY OF PRESENT ILLNESS: HERE FOR F/U OF CHRONIC LOWER EXTREMITY NEUROPATHY.CURRENTLY USING BUTRANS 20 MCG Q 7DAYS.HE IS WAITING TO BE SET UP FOR FISTULA AND DIALYSIS.FINDS BUTRANS SOMEWHAT HELPFUL AT REDUCING PAIN AND KEEPING HIM COMFORTABLE.RATING APIN VAS 3/10. PAIN THE PATIENT DESCRIBES THE PAIN... FALL RISK SCREENING: SCREENING :NO FALLS IN THE PAST YEAR CURRENT MEDICATIONS TAKING AZELASTINE HCL 137 MCG/SPRAY SOLUTION 1 PUFF IN EACH NOSTRIL NASALLY TWICE A DAY TAKING ADVAIR HFA 230-21 MCG/ACT AEROSOL 2 PUFFS INHALATION TWICE A DAY TAKING FERROUS SULFATE 325 (65 FE) MG TABLET 1 TABLET ORALLY ONCE A DAY TAKING MECLIZINE HCL 12.5 MG TABLET 2 TABLETS NEEDED ORALLY ONCE A DAY NEEDED FOR VERTIGO TAKING FISH OIL 1000 MG CAPSULE 1 CAP(S) ORALLY THREE TIMES A DAY TAKING PEN NEEDLES 31G X 5 MM ULTRA FINE 1 EACH INTRADERMALLY DIAG CODE 250.60 FOUR TIMES A DAY TAKING COBAN SELF-ADHERENT WRAP 1 MISCELLANEOUS TO WOUND TOPICAL DAILY, NEEDED TAKING TAMSULOSIN HCL 0.4 MG CAPSULE EXTENDED RELEASE 24 HOUR 1 CAPSULE 30 MINUTES AFTER THE SAME MEAL EACH DAY ORALLY ONCE A DAY TAKING PATADAY 0.2 % SOLUTION DIRECTED OPHTHALMIC ONCE DAILY NEEDED TAKING SALINE NASAL SPRAY 0.65 % SOLUTION 2 SPRAYS EACH NOSTRIL NASALLY FOUR TIMES DAILY NEEDED TAKING CLOBETASOL PROPIONATE 0.05 % OINTMENT 1 APPLICATION TO AFFECTED AREA ON LEGS AND ARMS EXTERNALLY TWICE A DAY NEEDED TAKING FULL KIT NEBULIZER SET - MISCELLANEOUS DIRECTED DX J44.9 (COPD) DAILY TAKING DRISDOL 50,000 UNITS TABLET 1 CAPSULE ORALLY ONCE A WEEK TAKING CETAPHIL - LOTION DIRECTED EXTERNALLY DAILY TAKING PROCRIT 73743 UNIT/ML SOLUTION INJECTION MONTHLY TAKING CPAP MACHINE TAKING PROVENTIL HFA 108 (90 BASE) MCG/ACT AEROSOL SOLUTION 2 PUFFS INHALATION EVERY 4 HOURS NEEDED TAKING COUMADIN 5 MG TABLET 1 TABLET ORALLY 7.5MG WED AND WEDNESDAY ONLY THEN 5MG EVERY OTHER DAY TAKING TRAZODONE HCL 100 MG TABLET 1 TABLET AT BEDTIME ORALLY ONCE A DAY TAKING TRIAMCINOLONE ACETONIDE 0.1 % CREAM 1 APPLICATION TO AFFECTED AREA EXTERNALLY TWICE A DAY, NOTES: APPLY PEA-SIZE AMOUNT (1G) TO EACH AREA OF SKIN WITH LESIONS THE SIZE OF YOUR HAND. APPLY TO ARMS, CHEST, BACK, BOTTOM, AND LEGS TAKING GLUCAGON EMERGENCY 1 MG KIT DIRECTED INJECTION DAILY NEEDED TAKING NOVOLOG 100 UNIT/ML SOLUTION - SUBCUTANEOUS 5 UNITS IN AM, 7 UNITS LUNCH AND 5 UNITS DINNER TAKING LANTUS 100 UNIT/ML SOLUTION TWICE A DAY SUBCUTANEOUS 7 UNITS IN AM AND 10UNITS AT BEDTIME TAKING ZOFRAN ODT 4 MG TABLET DISINTEGRATING 1 TABLET ON THE TONGUE AND ALLOW TO DISSOLVE ORALLY 3 TIMES A DAY NEEDED FOR NAUSEA TAKING FLONASE ALLERGY RELIEF 50 MCG/ACT SUSPENSION 1 SPRAY IN EACH NOSTRIL NASALLY TWICE A DAY TAKING LEVOCETIRIZINE DIHYDROCHLORIDE 5 MG TABLET 1 TABLET IN THE EVENING ORALLY ONCE A DAY TAKING PRAMIPEXOLE DIHYDROCHLORIDE 0.125 MG TABLET 1 TABLET BEFORE BEDTIME ORALLY ONCE A DAY TAKING CYMBALTA 60 MG CAPSULE DELAYED RELEASE PARTICLES 1 CAPSULE ORALLY ONCE A DAY TAKING BUTRANS 20 MCG/HR PATCH WEEKLY 1 PATCH TO SKIN TRANSDERMAL APPLY 1 PATCH Q 7 DAYS MDD=1 TAKING AMLODIPINE BESYLATE 10 MG TABLET 1 TABLET ORALLY ONCE A DAY TAKING MIRALAX - PACKET 1 PACKET MIXED WITH 8 OUNCES OF FLUID ORALLY THREE TIMES A DAY, NOTES: THREE TIMES DAY TAKING ALBUTEROL SULFATE (2.5 MG/3ML) 0.083% NEBULIZATION SOLUTION 3 ML INHALATION TWICE DAILY NEEDED FOR WHEEZING, NOTES: USES BID TAKING SINGULAIR 10 MG TABLET 1 TABLET IN THE EVENING ORALLY ONCE A DAY TAKING LIPITOR 40 MG TABLET 1 TABLET ORALLY ONCE A DAY TAKING HYDROXYZINE HCL 50 MG TABLET 1 TABLET NEEDED ORALLY FOUR TIMES DAILY NEEDED FOR ITCHING, NOTES: THREE TIMES A DAY TAKING BLOOD PRESSURE MONITOR - KIT DIRECTED TAKING NORCO 5-325 MG TABLET 1 TABLET NEEDED ORALLY MDD4 FOUR TIMES DAILY NEEDED NOT-TAKING FEXOFENADINE HCL 180 MG TABLET 1 TABLET NEEDED ORALLY ONCE A DAY NOT-TAKING PROTONIX 40 MG TABLET DELAYED RELEASE 1 TABLET ORALLY ONCE A DAY NOT-TAKING PRAMIPEXOLE DIHYDROCHLORIDE ER 0.75 MG TABLET EXTENDED RELEASE 24 HOUR 0.5 TABLET ORALLY ONCE A DAY AT BEDTIME NOT-TAKING TERBINAFINE HCL 250 MG TABLET 1 TABLET ORALLY ONCE A DAY NOT-TAKING NORVASC 10 MG TABLET 1 TABLET ORALLY ONCE A DAY NOT-TAKING PREDNISONE 10 MG TABLET 1 TABLET ORALLY DAILY NOT-TAKING CEFUROXIME AXETIL 500 MG TABLET 1 TABLET ORALLY ONCE DAILY NOT-TAKING ADVAIR DISKUS 500-50 MCG/DOSE AEROSOL POWDER BREATH ACTIVATED 1 PUFF INHALATION TWICE A DAY NOT-TAKING CYMBALTA 30 MG CAPSULE DELAYED RELEASE PARTICLES 1 CAPSULE ORALLY ONCE A DAY, NOTES: TAKES WITH 60MG FOR TOTAL OF 90MG DAILY NOT-TAKING MECLIZINE HCL 12.5 MG TABLET 1 TABLETS NEEDED ORALLY THREE TIMES A DAY NOT-TAKING INCRUSE ELLIPTA 62.5 MCG/INH AEROSOL POWDER BREATH ACTIVATED 1 PUFF INHALATION DAILY NOT-TAKING FLUTICASONE PROPIONATE 50 SUSPENSION USE 1 SPRAY IN EACH NOSTRIL TWICE DAILY NOT-TAKING ALCLOMETASONE DIPROPIONATE 0.05 % OINTMENT 1 APPLICATION TO AFFECTED AREA EXTERNALLY ONCE A DAY NOT-TAKING DULOXETINE HCL 60 MG CAPSULE DELAYED RELEASE PARTICLES TAKE 1 CAPSULE BY MOUTH ONCE DAILY , NOTES: DUPLICATE NOT-TAKING HYDROXYZINE HCL 25 MG TABLET 1 TABLET NEEDED ORALLY 4 TIMES A DAY MEDICATION LIST REVIEWED AND RECONCILED WITH THE PATIENT PAST MEDICAL HISTORY DVT CHRONIC PHLEBITIS CHRONIC VENOUS INSUFFICIENCY PERIPHERAL NEUROPATHY TYPE 2 DIABETES--DR Amisha PRADO HYPERLIPIDEMIA HTN COPD HX OF DEPRESSION DDD/DJD GERD DERMATITIS HERPETIFORMIS-- + BX 05/03 DR MCDONALD ADENOMATOUS COLON POLYP 2009 RESTLESS LEG SYNDROME CELIAC DISEASE RIGTH SHOULDER NERVE IMPINGEMENT/RIGHT CARPEL TUNNEL - DR. PRADO GORDON ON CPAP SUBCLINICAL HYPOTHYROIDISM 06/07 DIVERTICULOSIS 01/2016 KIDNEY DISEASE STAGE 4 NOT REQUIRING DIALYSIS L2 VERTERAE FX ALLERGIES ACTOS: EDEMA: SIDE EFFECTS DEMEROL: HIVES: ALLERGY DILANTIN: ANAPHYLAXIS: ALLERGY GLUCOPHAGE: RASH: ALLERGY LEVAQUIN: HEAD ACHE: SIDE EFFECTS PHENOBARBITAL: ANAPHYLAXIS: ALLERGY TEGRETOL: ANAPHYLAXIS: ALLERGY PENICILLIN (FOR ALLERGIES USE ONLY): HIVES: ALLERGY TRIPLE ANTIBIOTIC: FACIAL SWELLING: ALLERGY REQUIP: ELEVATED LIVER ENZYMES LATEX (FOR ALLERGY USE ONLY): RASH: ALLERGY CRESTOR: HEADACHE LYRICA: DIDN'T WORK: SIDE EFFECTS CAPSACIN (TOPICALLY): EXCESSIVE BURNING: SIDE EFFECTS LISINOPRIL: RASH: SIDE EFFECTS GABAPENTIN: DIDN'T WORK: LACK OF THERAPEUTIC EFFECT DAPSONE: ANEMIA: SIDE EFFECTS NSAIDS: CONTRAINDICATION BEES: ANAPHYLAXIS: ALLERGY SURGICAL HISTORY CERVICAL SPINE FUSION 06/2003 L ARM BREAK REPAIR 11/1981 R LEG BREAK REPAIR 02/1982 COLONSOCOPY (ADENOMATOUS POLYP 2009) 2003,2009 EGD 2009 ENDOSCOPY AND COLONOSCOPY 2015DEC 13 SOCIAL HISTORY GENERAL: TOBACCO USE ARE YOU A: NONSMOKER . BMI CARE GOAL FOLLOW-UP ABOVE NORMAL BMI FOLLOW-UPDIETARY MANAGEMENT EDUCATION, GUIDANCE, AND COUNSELING ALCOHOL SCREENING DID YOU HAVE A DRINK CONTAINING ALCOHOL IN THE PAST YEAR?NO POINTS0 INTERPRETATIONNEGATIVE RECREATIONAL DRUG USE DRUG USE?NO CAFFEINE CAFFEINE USE?YES HOW OFTEN AND HOW MUCH? 2 CUPS COFFEE/DAY SEXUAL HX HAD SEX IN THE LAST 12 MONTHS (VAGINAL, ORAL, OR ANAL)?NO HAVE YOU EVER HAD AN STD?NO HIV / HEP-C SCREENING HIV TEST OFFERED TO PATIENT:YES DATE OFFERED:02/08/2017 TEST ACCEPTED:NO REASON:PATIENT DECLINED HEP-C TEST OFFERED TO PATIENT:YES DATE OFFERED:02/08/2017 TEST ACCEPTED:NO REASON:PATIENT DECLINED PENTECOSTALISM [id number] RASTAFARI LANGUAGE LANGUAGES SPOKEN:TURKISH EDUCATION LEVEL OF EDUCATION:NOT FINISHED HIGH SCHOOL LEARNING BARRIERS / SPECIAL NEEDS CHANGE FROM LAST VISIT?NO BARRIERS TO LEARNING?NO HEARING IMPAIRED?YES :HEARING AIDES VISION IMPAIRED?YES :CORRECTIVE LENSES COGNITIVELY IMPAIRED?NO READINESS TO LEARN?YES LEARNING PREFERENCES?YES :DEMONSTRATION/VERBAL INSTRUCTION LEARNING CAPABILITIES PRESENT?YES EMOTIONAL BARRIERS?NO SPECIAL DEVICES?NO PHOTORESIST PRINTER NEEDED?NO DOMESTIC VIOLENCE DO YOU FEEL SAFE IN YOUR ENVIRONMENT?YES OCCUPATION: DISABLED. DIET: NO ADDED SALT, LOW FAT, LOW CHOLESTEROL. EXERCISE: NONE. MARITAL STATUS: . OTHERS AT HOME: SPOUSE. NEW PATIENT PAIN DIARY TODAY'S VISITNOTES FROM 0-10, WHAT LEVEL IS YOUR PAIN TODAY?3 PAIN CLINIC PFS, CLERGY, PUBLIC HEALTH REFERRALS PFS REFERRAL NEEDED?NO CLERGY REFERRAL NEEDED?NO PUBLIC HEALTH REFERRAL NEEDED?NO WAS THE PROVIDER NOTIFIED OF ANY PERTINENT INFO? N/A HAS THE PATIENT BEEN EDUCATED REGARDING HIS/HER PLAN OF CARE?YES HAS THE PATIENT BEEN EDUCATED REGARDING PAIN, THE RISK FOR PAIN, THE IMPORTANCE OF EFFECTIVE PAIN MANAGEMENT, AND THE PAIN ASSESSMENT PROCESS?YES HOUSING: OWNS HOME. ADVANCE DIRECTIVE ADVANCE DIRECTIVE DISCUSSED WITH PATIENT:YES HAS HCP [phone] DAUGHTER ELIZABETH VALLEJO [phone] 04/21/18 1420 REVIEWED WITH PT. ADRFEREIWED WITH PT 07/05/18 BV. HOSPITALIZATION/MAJOR DIAGNOSTIC PROCEDURE CERVICAL SPINE FUSION SX 06/2003 L ARM BREAK REAPIR SX 11/1981 R LEG BREAK REPAIR SX 02/1982 PNEUMONIA 03/2009 BOWEL IMPACTION 09/2009 KINDEY FAILURE 02/2017 REVIEW OF SYSTEMS REVIEWED BY: PROVIDER: SAVANNA PATEL . CONSTITUTIONAL: ANY CHANGE IN YOUR MEDICAL CONDITION? NO . CHILLS NO . FEVER NO . INFECTION: DO YOU HAVE NEW INFECTIONS? NO . DO YOU HAVE HISTORY OF MRSA? NO . MUSCULOSKELETAL: ANY NEW PATTERNS OF PAIN OR NUMBNESS? NO . GASTROENTEROLOGY: ANY NEW CHANGE IN BOWEL CONTROL? NO . GENITOURINARY: ANY NEW CHANGE IN BLADDER CONTROL? NO . IS THERE A CHANCE YOU COULD BE ? NO . HEMATOLOGY/LYMPH: DO YOU TAKE ANY BLOOD THINNERS? (FOR EXAMPLE- COUMADIN, PLAVIX, AGGRENOX, PLATEL, PRADAXA, OR XARELTO) NO . WHEN WAS YOUR LAST DOSE? DATE: TIME: . NEUROLOGY: HAVE YOU FALLEN IN THE PAST 6 MONTHS? NO . ANY NEW EXTREMITY NUMBNESS OR WEAKNESS? NO . CARDIOLOGY: DO YOU HAVE A PACEMAKER OR DEFIBRILLATOR? NO . RESPIRATORY: HAVE YOU BEEN SICK IN THE PAST WEEK? YES, SINUSITIS TXD W ABX, GETTING BETTER . FEVER YES . FLU LIKE SYMPTOMS? NO . COUGH YES, WHITE SPUTUM . INTEGUMENTARY: DO YOU HAVE ANY RASHES OR OPEN SORES? YES, OPEN SORES TO ARMS AND LEGS, PT ATTRIBUTES TO KIDNEY DISEASE . ALLERGIC/IMMUNO: ARE YOU ALLERGIC TO SHELLFISH OR IV DYE? NO . ANY NEW ALLERGIES? NO . PSYCHIATRIC: DO YOU HAVE THOUGHTS OF HURTING YOURSELF OR SOMEONE ELSE? NO . ARE YOU ABUSED, NEGLECTED, OR IN AN UNSAFE ENVIRONMENT? NO . ENDOCRINOLOGY: ARE YOU DIABETIC? YES . OTHER: DO YOU NEED ANY PRESCRIPTIONS? NO . IF YES, PLEASE LIST: ____ . ANY NEW PROBLEMS WITH YOUR MEDICATIONS? NO . WHEN DID YOU LAST EAT? ____ . WHEN DID YOU LAST DRINK? ____ . WHAT DID YOU LAST DRINK? ____ . NAME OF PERSON DRIVING YOU HOME? ____ . DO YOU HAVE ANY OTHER QUESTIONS OR CONCERNS NO . VITAL SIGNS WT 180.8 LBS, HT 69 IN, BMI 26.70 INDEX, BP 165/73 MM HG, HR 96 /MIN, RR 18 /MIN, TEMP 98.0 F, OXYGEN SAT % 95%, NA INITIALS AW 1304, REVIEWED BY: EM. EXAMINATION GENERAL EXAMINATION: LUNGS:LUNG SOUNDS ARE CLEAR. HEART:HEART RATE REGULAR. MUSCULOSKELETAL:*PALPATION: NEGATIVE FOR PAIN OVER L/S SPINE. NEGATIVE FOR PAIN OVER L/S PARASPINALS. MUSCLE STRENGTH TESTING /5 BLE. ASSESSMENTS DIABETIC PERIPHERAL NEUROPATHY - E11.42 (PRIMARY) TREATMENT DIABETIC PERIPHERAL NEUROPATHY CONTINUE BUTRANS PATCH WEEKLY, 20 MCG/HR, 1 PATCH TO SKIN, TRANSDERMAL, APPLY 1 PATCH Q 7 DAYS MDD=1 NOTES: ISTOP REGISTRY REVIEWED AND DEMONSTRATES COMPLLIANCE. (REF #[id number] ) BRINGS IN MEDICATIONS WHICH IS APPROPRIATE FOR WHAT WAS DISPENSED. RECENT URINE TOXICOLOGY REVIEWED. NO UNAUTHORIZED MEDICATIONS. NO ILLICIT SUBSTANCES AND PRESCRIBED MEDICATIONS WERE PRESENT. , RISKS AND BENEFITS OF NARCOTIC/OPIOD MEDICATIONS WERE REVIEWED WITH PATIENT - THIS INCLUDES BUT IS NOT LIMITED TO RISK OF DEPENDANCE/DEVELOPMENT OF ADDICTION, MOOD DISTURBANCE AND DEPRESSION, OSTEOPOROSIS, HORMONAL AND LABIDAL CHANGES, RESPIRATORY DEPRESSION AND . PATIENT IS ADVISED NOT TO DRIVE OR DRINK ALCOHOL WHILE ON THESE MEDICATIONS. PROCEDURE CODES FA211 ESTABILISHED PATIENT [facility] CHARGE DISPOSITION & COMMUNICATION FOLLOW UP 3 MONTHS ELECTRONICALLY SIGNED BY JORGE HERRERA ON 10/26/2018 AT 03:30 PM EST DISCLAIMER : THIS IS A VISIT SUMMARY EXTRACTED FROM THE [employer] CHART. IT IS NOT A COPY OF THE [employer] PROGRESS NOTE. JOVANNA
== END ==
LOC: M PAIN 13:00
PROVIDERS: ATTEND Nurse Practitioner Family
DX: E11.42 Type 2 diabetes mellitus with diabetic polyneuropathy (principal); E78.5 Hyperlipidemia, unspecified; N18.4 Chronic kidney disease, stage 4 (severe); E11.22 Type 2 diabetes mellitus with diabetic chronic kidney disease; I12.9 Hypertensive chronic kidney disease with stage 1 through stage 4 chronic kidney disease, or unspecified chronic kidney disease; I80.9 Phlebitis and thrombophlebitis of unspecified site; J44.9 Chronic obstructive pulmonary disease, unspecified; F32.9 Major depressive disorder, single episode, unspecified; K21.9 Gastro-esophageal reflux disease without esophagitis; G25.81 Restless legs syndrome; G47.33 Obstructive sleep apnea (adult) (pediatric); E11.51 Type 2 diabetes mellitus with diabetic peripheral angiopathy without gangrene; L13.0 Dermatitis herpetiformis; E02 Subclinical iodine-deficiency hypothyroidism; Z98.1 Arthrodesis status; Z79.01 Long term (current) use of anticoagulants; Z79.4 Long term (current) use of insulin; Z79.899 Other long term (current) drug therapy; Z88.8 Allergy status to other drugs, medicaments and biological substances; Z88.1 Allergy status to other antibiotic agents; Z88.6 Allergy status to analgesic agent; Z91.030 Bee allergy status; Z91.040 Latex allergy status

== ENCOUNTER → 2018-10-10 | Outpatient (REF) | payer OTHER ==
[2018-10-10 17:32] LABS: INR 1.98; PROTHROMBIN TIME 22.9 SECONDS (12.1-14.4)
== END ==
LOC: M LAB REF 16:54
PROVIDERS: ATTEND Internal Medicine Nephrology
DX: Z51.81 Encounter for therapeutic drug level monitoring (principal); Z79.01 Long term (current) use of anticoagulants

== ENCOUNTER 2018-11-01 09:29 | Day surgery (SDC) | payer MEDICARE, OTHER ==
[~2018-11-01] VITALS: Ht 175.3 cm; Wt 80.7 kg
[~2018-11-01 09:29] MED LIST changes: -ALL10TAB27 PO; +ALL10TAB28 PO; -AMLO10TA4 PO; +AMLO10TA5 PO; -AMLO5TAB4 PO; +AMLO5TAB6 PO; +LIDOCAINE 2% INJ 100 MG/5 ML SDV (FOR ANES.) As Ordered ONE; +LR 1,000 ML IV ONE; +MIDAZOLAM INJ 2 MG/2 ML VIAL (J2250) As Ordered ONE; +PROPOFOL 200 MG/20 ML VIAL As Ordered ONE; +REQU0.5T PO; -REQU1TAB15 PO; +fentaNYL 100 MCG/2 ML INJECTION (J3010) As Ordered ONE
[2018-11-01 10:00] LABS: HEMATOCRIT 36.1 % (42.0-52.0); HEMOGLOBIN 11.5 g/dl (13.5-17.5); MEAN CORPUSCULAR HEMOGLOBIN 28.2 pg (27.0-33.0); MEAN CORPUSCULAR HGB CONC 31.9 g/dl (32.0-36.5); MEAN CORPUSCULAR VOLUME 88.5 fl (80.0-96.0); PLATELET COUNT, AUTOMATED 276 10^3/uL (150-450); RED BLOOD COUNT 4.08 10^6/uL (4.30-6.10); WHITE BLOOD COUNT 9.2 10^3/uL (4.0-10.0)
[2018-11-01] MEDS ORDERED: HEPARIN SOD (PORCINE) 5000 UNITS/ML VIAL As Ordered ONE (10:09)
[2018-11-01] MEDS ORDERED: BUPIVACAINE HCL 0.5% 30 ML VIAL As Ordered ONE (10:09)
[2018-11-01] MEDS ORDERED: LIDOCAINE 1% SDV INJ 30 ML VIAL As Ordered ONE (10:09)
[2018-11-01 10:11] LABS: INR 2.18; PROTHROMBIN TIME 24.7 SECONDS (12.1-14.4)
[2018-11-01] MEDS ORDERED: D5W/0.2% SODIUM CHLORIDE 1,000 ML IV ONE (10:15)
[2018-11-01 10:30] LABS: CALCIUM LEVEL 8.4 MG/DL (8.8-10.2); CREATININE FOR GFR 3.36 MG/DL (0.70-1.30); GLOMERULAR FILTRATION RATE 19.6 (>49); POTASSIUM SERUM 4.6 MEQ/L (3.5-5.1)
[2018-11-01] MEDS ORDERED: PHENYLephrine HCL 500 MCG/5 ML (100MCG/ML) SYRINGE (J2370) As Ordered ONE (11:46)
[2018-11-01] MEDS ORDERED: PROPOFOL 200 MG/20 ML VIAL As Ordered ONE ×2 (11:59→13:03)
[2018-11-01 12:55] VITALS: BP 172/78
--- NOTE | 2018-11-01 15:39 | ECGEPIP ---
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
--- NOTE | 2018-11-16 09:55 | RO ---
DATE OF PROCEDURE: 11/01/2018 PREOPERATIVE DIAGNOSIS: Chronic renal insufficiency nearing end-stage renal. disease. POSTOPERATIVE DIAGNOSIS: Chronic renal insufficiency nearing end-stage renal. disease. PROCEDURE: Right brachiocephalic arteriovenous fistula creation. SURGEON: Dr. Chapis Degroot. SKIVER MACHINE OPERATOR: Fabrice Leal PA-C ANESTHESIA: Local monitored anesthesia care (MAC). ESTIMATED BLOOD LOSS: 25 mL IV FLUIDS: 500 mL. HEPARIN: None. COMPLICATIONS: None. DRAINS: None. SPECIMENS: None. IMPLANTS: None. INDICATION: The patient is a 68-year-old male with chronic renal insufficiency nearing end-stage renal disease and the requirement for renal replacement therapy. The patient has chosen to undergo placement of an arteriovenous fistula for hemodialysis access. The procedure was explained and described to the patient in detail including drawn of pictures demonstrating the procedure and the pertinent anatomy. Risks, benefits and alternative options were discussed with the patient. Alternative options included but were not limited to no intervention. Benefits included but were not limited to placement of an arteriovenous fistula for access for hemodialysis and possible avoidance of placement of a temporary hemodialysis catheter for access at the time of renal replacement therapy requirement. Risks included but were not limited to infection, bleeding, failure of arteriovenous fistula to mature requiring secondary intervention failure, arteriovenous fistula to maintain patency with thrombosis, possibly for further open surgical intervention, steal syndrome, cerebrovascular accident, myocardial infarction, pulmonary embolus, deep venous thrombosis (DVT) loss of limb, loss to life, poor outcome and poor results. Patient voices understanding and acceptance of these risks, benefits and alternative options and consents to proceed with a right arm arteriovenous fistula creation. All the patient's questions were answered. There were no promises or guarantees made regarding the procedure and/or outcome of the procedure to the patient. DESCRIPTION OF PROCEDURE: The patient was taken to the operating room, placed supine on the operating room table and the right upper extremity was prepped and draped in a standard surgical fashion. A tourniquet was applied to the right upper arm and there was no palpable or visible veins noted in the wrist or forearm region, which were usable for hemodialysis access creation. There was a large vein at the antecubital fossa. The skin at the antecubital fossa was anesthetized with 1% lidocaine mixed with 0.5% Marcaine. An incision was made transversely and this was used to expose the brachial artery and the cephalic vein at the antecubital fossa. The vessel was sharply dissected and encircled with Vesseloops. The median antecubital vein was identified, sharply dissected and transected just before coursing into the basilic vein after ligation with 0 silk suture. The median antecubital and cephalic veins were dilated with heparinized saline. The brachial artery was clamped proximally and distally. An arteriotomy was made and the median antecubital vein was anastomosed to the brachial artery in an end-to-side fashion using #6-0 Prolene suture in running continuous fashion. Flow was reestablished to the brachial artery with good flow noted to brachial artery proximal to distal. The arteriovenous anastomosis. There was good flow noted into the median antecubital vein and into the cephalic vein in retrograde and antegrade fashion. Hemostasis was obtained after which the skin was closed using #3-0 Monocryl in a running subcuticular fashion. Steri-Strips and dressings were applied. The patient tolerated the procedure well. All instrument, sponge, needle counts were correct at the end the case were no complications. Dr. Degroot was present for directed the entire case. The patient was transferred to the recovery room and subsequent discharged in stable condition. The procedure and results were discussed with the patient in the recovery room with all of his questions being answered.
== END 2018-11-01 13:05 | disposition home or self-care (01) ==
LOC: M SDC 09:29
PROVIDERS: ATTEND Surgery Vascular Surgery
DX: N18.9 Chronic kidney disease, unspecified (principal)
CPT/HCPCS: 36415; 36821; 80048; 85027; 85610; 93005; J2250; J2370; J3010

== ENCOUNTER → 2018-11-29 | Outpatient (REF) | payer MEDICARE ==
[~2018-11-29] MED LIST changes: -LIDOCAINE 2% INJ 100 MG/5 ML SDV (FOR ANES.) As Ordered ONE; -LR 1,000 ML IV ONE; -MIDAZOLAM INJ 2 MG/2 ML VIAL (J2250) As Ordered ONE; -PROPOFOL 200 MG/20 ML VIAL As Ordered ONE; -fentaNYL 100 MCG/2 ML INJECTION (J3010) As Ordered ONE
[2018-11-29 19:17] LABS: INR 2.08; PROTHROMBIN TIME 23.8 SECONDS (12.1-14.4)
== END ==
LOC: M SFHCPLAZ 14:00
PROVIDERS: ATTEND Family Medicine
DX: Z51.81 Encounter for therapeutic drug level monitoring (principal); Z79.01 Long term (current) use of anticoagulants
CPT/HCPCS: 36415; 85610; G0463

== ENCOUNTER → 2018-12-13 | Outpatient (REF) | payer MEDICARE ==
[2018-12-13 19:32] LABS: INR 1.64; PROTHROMBIN TIME 19.7 SECONDS (12.1-14.4)
== END ==
LOC: M LAB REF 17:08
PROVIDERS: ATTEND Internal Medicine Nephrology
DX: Z79.01 Long term (current) use of anticoagulants (principal)

== ENCOUNTER → 2019-01-08 | Outpatient (CLI) | payer MEDICARE ==
[~2019-01-08] MED LIST changes: -/ADVA50050; -/GLIM4TA PO; -/TIOT18INH; -/WARF25TA; -/WARF5TA; +ACET-683 PO; +ADVA1AER2; +AMAR1TAB6 PO; +ATOR40TA75 PO; -CLOB05OI TOP; +COUM1TAB17; +COUM1TAB18; +FLUT50SP12; +FURO40TA2 PO; -GLIM2TA PO; +GLIM2TAB29 PO; -NORC1TAB4 PO; +NORC1TAB7 PO; +OMEP40CA2 PO; -PROC20004 IJ; +PROC20004 INJ; -SALI0.6528; +SALI0.6528 NARES; +SPIR1CAP; +[UNRECOGNIZED DRUG - CODE] TOP
--- NOTE | 2019-01-08 13:45 | REP ---
SOFT TISSUE NECK TWO VIEWS: HISTORY: Globus sensation. The cervical spine is visualized from C1 to the C6-7 level in the lateral radiograph. The patient is status post C3-5 anterior spinal fusion. A fixation plate and bone graft material are present. There is no acute fracture. The C5-6 and C6-7 intervertebral discs are decreased in height consistent with disc degeneration. Large anterior osteophytes are present at the C2-3, C5-6 and C6-7 levels. There are 2 mm of retrolisthesis of C2 on 3. There is minimal mass effect on the posterior oropharynx at the C2-3 level secondary to osteophyte formation. IMPRESSION: Degenerative change as described above. Electronically Signed by Yuri Mcdowell MD 01/08/2019 02:28 P
== END ==
LOC: M LRY 12:21
PROVIDERS: ATTEND Nurse Practitioner Family
DX: F45.8 Other somatoform disorders (principal); M43.12 Spondylolisthesis, cervical region; M25.78 Osteophyte, vertebrae; Z98.1 Arthrodesis status
CPT/HCPCS: 70360; G0463

== ENCOUNTER → 2019-01-16 | Outpatient (REF) | payer MEDICARE ==
[~2019-01-16] MED LIST changes: +/ADVA50050; +/GLIM4TA PO; +/TIOT18INH; +/WARF25TA; +/WARF5TA; -ACET-683 PO; -ADVA1AER2; -AMAR1TAB6 PO; -ATOR40TA75 PO; +CLOB05OI TOP; -COUM1TAB17; -COUM1TAB18; -FLUT50SP12; -FURO40TA2 PO; +GLIM2TA PO; -GLIM2TAB29 PO; +NORC1TAB4 PO; -NORC1TAB7 PO; -OMEP40CA2 PO; +PROC20004 IJ; -PROC20004 INJ; +SALI0.6528; -SALI0.6528 NARES; -SPIR1CAP; -[UNRECOGNIZED DRUG - CODE] TOP
[2019-01-16 17:47] LABS: INR 2.28; PROTHROMBIN TIME 25.6 SECONDS (12.1-14.4)
== END ==
LOC: M LAB REF 17:05
PROVIDERS: ATTEND Internal Medicine Nephrology
DX: Z79.01 Long term (current) use of anticoagulants (principal)

== ENCOUNTER 2019-01-29 19:03 | Inpatient (IN) | payer MEDICARE ==
[~2019-01-29] VITALS: Ht 175.3 cm; Wt 90.0 kg
[2019-01-29] MEDS: LEVEMIR (INSULIN DETEMIR) 1 UNITS/0.01ML SC SCH (00:28)
[~2019-01-29 19:03] MED LIST changes: -/ADVA50050; -/GLIM4TA PO; -/TIOT18INH; -/WARF25TA; -/WARF5TA; +ADVA1AER2; +AMAR1TAB6 PO; -CLOB05OI TOP; +COUM1TAB17; +COUM1TAB18; +FLUT50SP12; -GLIM2TA PO; +GLIM2TAB29 PO; -NORC1TAB4 PO; +NORC1TAB7 PO; -PROC20004 IJ; +PROC20004 INJ; -SALI0.6528; +SALI0.6528 NARES; +SPIR1CAP; -TRAZ-160 PO; +TRAZ-252 PO; +[UNRECOGNIZED DRUG - CODE] TOP
[2019-01-29 19:56] LABS: BASO % 0.5 % (0.0-1.0); EOS # 0.7 10^3/uL (0.0-0.50); EOS % 9.7 % (0.0-3.0); HEMATOCRIT 30.3 % (42.0-52.0); HEMOGLOBIN 9.6 g/dl (13.5-17.5); LYMPH # 1.4 10^3/uL (1.5-4.5); LYMPH % 19.3 % (24.0-44.0); MEAN CORPUSCULAR HEMOGLOBIN 29.5 pg (27.0-33.0); MEAN CORPUSCULAR HGB CONC 31.7 g/dl (32.0-36.5); MEAN CORPUSCULAR VOLUME 93.2 fl (80.0-96.0); MONO # 0.5 10^3/uL (0.0-0.8); MONO % 6.8 % (0.0-5.0); NEUTROPHILS # 4.6 10^3/uL (1.8-7.7); NEUTROPHILS % 63.4 % (36.0-66.0); PLATELET COUNT, AUTOMATED 214 10^3/uL (150-450); RED BLOOD COUNT 3.25 10^6/uL (4.30-6.10); WHITE BLOOD COUNT 7.3 10^3/uL (4.0-10.0)
[2019-01-29 20:06] LABS: INR 2.09; PARTIAL THROMBOPLASTIN TIME 34.6 SECONDS (25.4-37.6); PROTHROMBIN TIME 23.9 SECONDS (12.1-14.4)
[2019-01-29 20:21] LABS: CALCIUM LEVEL 7.6 MG/DL (8.8-10.2); CREATININE FOR GFR 3.92 MG/DL (0.70-1.30); GLOMERULAR FILTRATION RATE 16.4 (>49); MB/CK RELATIVE INDEX 1.69 (< OR =4); TROPONIN I 0.04 NG/ML (< 0.10)
[2019-01-29] MEDS ORDERED: FUROSEMIDE 40 MG/4 ML VIAL (J1940) IV SCH (21:00)
[2019-01-29] MEDS ORDERED: HYDR-3713 PO (21:28)
--- NOTE | 2019-01-29 21:34 | HPEPDOC ---
[facility] [place] Physical Date of Admission Jan 29, 2019 Primary Care Physician: SANDRA FERNANDEZ MD History and Physical CHIEF COMPLAINT: Shortness of breath HISTORY OF PRESENT ILLNESS: Patient is a 68-year-old male with CKD stage IV currently getting evaluated for HD, diabetes, hypertension, COPD, anemia, current DVTs on chronic warfarin presents to ER with complaint of dyspnea. Patient reported that he has been short of breath for the past week and has progressively gotten worse. He has taken several respiratory treatments at home without relief. He reported that he had gained 11 pounds over the last several days with possible fullness and abdominal distention. He otherwise denies fever, chills or any other symptoms. Patient was saturating well on nasal cannula in the ER and had refused an ABG for evaluation of respiratory status. He stated he has had one ABG in the past and will refused to have any more future. PAST MEDICAL HISTORY: 1. CKD IV follow with Dr. Ramirez for HD evaluation/initiation, not on HD currently. 2. COPD. 3. Diabetes mellitus. 4. HTN 5. 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 Anemia PAST SURGICAL HISTORY: 1. Neck fusion. 2. GD/colonoscopy. 3. Carpal tunnel surgery. SOCIAL HISTORY: Former smoker. Denies alcohol or illicit drug use. FAMILY HISTORY: Sister. Has ovarian cancer and diabetes ALLERGIES: Please see below. REVIEW OF SYSTEMS: 10 point review of system negative except as stated in HPI HOME MEDICATIONS: Please see below. PHYSICAL EXAMINATION: General: No acute distress, Alert Eyes: Normal sclera, EOMI, AMI HENT: Atraumatic, neck supple, moist mucous membranes Cardiovascular: Normal rate, normal rhythm. No murmurs appreciated. 1+ pitting edema b/l. Pulmonary: Clear to auscultation b/l, no wheezing noted. Decrease breath sounds b/l. GI: Soft, nontender, slightly distended. Skin: Warm and dry Neuro: CN grossly intact. No focal deficits. Strengths equal b/l. Psych: oriented x 3 LABORATORY DATA: See below. IMAGING: CXR- R. sided pleural effusion with no obvious infiltrate as read by me. F/u official report. MICROBIOLOGY: Please see below. ASSESSMENT AND PLAN: 1. Dyspnea - Likely fluid overloaded from kidney dysfunction, less likely COPD but unable to fully assess as we cannot get ABG. - Will diurese with IV lasix. Monitor I/O, daily weights. - Patient therapeutic INR on warfarin with no tachycardia or hypoxia, less likely PE although considered. - If symptoms do not improve would consider CT angio but would be cautious with impaired kidney function, otherwise V/Q scan. - Pleural effusion likely 2/2 fluid overload, noted 11 lbs weight gain. 2. COPD - No clear evidence of exacerbation at this time. No wheezing noted. - Cannot assess for CO2 retention as patient refusing ABG. Will get VBG. - Nebs and O2 support. Consider adding steroids as well. 3. DM - Accuchecks, sliding scale insulin. - hold any home glycemic meds. 4. HTN - Resume home meds - Monitor BP 5. Recurrent DVTs - Resume home dose warfarin. - follow daily INR. 6. CKD Stage 4 - Possibly contributing to pleural effusion and fluid status. - Will need to continue following up with Nephro as outpatient for HD evaluation. Patient is high risk due to acute dyspnea with possible fluid overload versus COPD exacerbation Estimated length of stay 3-4 days with expected disposition to home Vital Signs Vital Signs Date Time Temp Pulse Resp B/P (MAP) Pulse Ox O2 Delivery O2 Flow Rate FiO2 01/29/19 20:23 159/73 (101) 01/29/19 20:18 78 22 98 Room Air 01/29/19 19:48 97.9 Laboratory Data Labs 24H Laboratory Tests 2 01/29/19 19:41: Immature Granulocyte % (Auto) 0.3, White Blood Count 7.3, Red Blood Count 3.25L, Hemoglobin 9.6L, Hematocrit 30.3L, Mean Corpuscular Volume 93.2, Mean Corpuscular Hemoglobin 29.5, Mean Corpuscular Hemoglobin Concent 31.7L, Red Cell Distribution Width 14.5, Platelet Count 214, Neutrophils (%) (Auto) 63.4, Lymphocytes (%) (Auto) 19.3L, Monocytes (%) (Auto) 6.8H, Eosinophils (%) (Auto) 9.7H, Basophils (%) (Auto) 0.5, Neutrophils # (Auto) 4.6, Lymphocytes # (Auto) 1.4L, Monocytes # (Auto) 0.5, Eosinophils # (Auto) 0.7H, Basophils # (Auto) 0.0, Nucleated Red Blood Cells % (auto) 0.0, Prothrombin Time 23.9H, Prothromb Time International Ratio 2.09, Activated Partial Thromboplast Time 34.6, Anion Gap 6L, Glomerular Filtration Rate 16.4L, Blood Urea Nitrogen 53H, Creatinine 3.92H, Sodium Level 139, Potassium Level 5.0, Chloride Level 112H, Carbon Dioxide Level 21, Calcium Level 7.6L, Total Creatine Kinase 540H, Creatine Kinase MB 9.0H, Creatine Kinase MB Relative Index 1.69, Troponin I 0.04 CBC/BMP Laboratory Tests 01/29/19 19:41 Red Blood Count 3.25 L, Mean Corpuscular Volume 93.2, Mean Corpuscular Hemoglobin 29.5, Mean Corpuscular Hemoglobin Concent 31.7 L, Red Cell Distribution Width 14.5, Neutrophils (%) (Auto) 63.4, Lymphocytes (%) (Auto) 19.3 L, Monocytes (%) (Auto) 6.8 H, Eosinophils (%) (Auto) 9.7 H, Basophils (%) (Auto) 0.5, Neutrophils # (Auto) 4.6, Lymphocytes # (Auto) 1.4 L, Monocytes # (Auto) 0.5, Eosinophils # (Auto) 0.7 H, Basophils # (Auto) 0.0, Calcium Level 7.6 L, Total Creatine Kinase 540 H Home Medications Scheduled (Procrit) 20,000 Unit/Ml Inj, 20,000 UNIT IJ QMONTH Amlodipine Besylate (Amlodipine Besylate) 10 Mg Tab, 10 MG PO DAILY Atorvastatin Calcium (Lipitor) 20 Mg Tab, 40 MG PO QPM Buprenorphine (Butrans) 20 Mcg/Hr Dis, 20 MCG TD ASDIRECTED Apply Weekly on Wednesday Calcitriol (Calcitriol) 0.25 Mcg Cap, 1 TAB PO DAILY Duloxetine Hcl (Cymbalta) 60 Mg Cap, 60 MG PO QHS Ferrous Sulfate (Ferrous Sulfate) 325 Mg Tab, 325 MG PO DAILY Fish Oil (Fish Oil 1000 mg) 1 Cap Cap, 1 CAP PO TID Fluticasone Propionate (Fluticasone Propionate) 50 Mcg/Act Spr, 1 SPRAY NA BID Glucagon Rdna (Glucagon Emergency Kit) 1 Mg Kit, 1 MG INJ ASDIRECTED Insulin Aspart (Novolog) 100 U/Ml Inj, 7 UNITS SC BID Breakfast and DINNER Insulin Aspart (Novolog) 100 U/Ml Inj, 5 UNITS SC DAILY LUNCH Insulin Glargine (Lantus) 1 Units/0.01 Ml Susp, 8 UNITS SC QAM Insulin Glargine (Lantus) 1 Units/0.01 Ml Susp, 5 UNITS SC QHS Levocetirizine Hydrochloride (Levocetirizine Dihydrochl) 5 Mg Tab, 5 MG PO QPM Pramipexole Dihydrochloride (Pramipexole Dihydrochlori) 0.125 Mg Tab, 0.125 MG PO QHS Salmeterol/Fluticasone (Advair Hfa 230-21 Mcg/Act) 1 Aer Aer, 1 PUFF INH BID Tamsulosin Hydrochloride (Flomax) 0.4 Mg Cap, 0.4 MG PO QHS Trazodone HCl (Trazodone HCl) 50 Mg Tab, 50 MG PO QPM Vitamin D (Drisdol) 50,000 Unit Cap, 50,000 UNIT PO QWEEK Wednesday Warfarin Sod (Coumadin) 7.5 Mg Tab, 7.5 MG PO daily @ 5 pm Warfarin Sod (Warfarin Sodium) 5 Mg Tab, 5 MG PO 5XW Scheduled PRN (Saline Nasal [place]) 0.65 % Spr, 0.65 % NA ASDIRECTED PRN for CONGESTION Acetaminophen/Hydrocodone ([place] 5-325 mg) 1 Tab Tab, 1 TAB PO Q6H PRN for PAIN Albuterol Sulfate (Albuterol Sulfate) 2.5 Mg/3 Ml Nebu, 2.5 MG INH Q4H PRN for SOB/WHEEZING Albuterol Sulfate (Proair Hfa) 108 Mcg/Act Aer, 2 PUFF INH Q4HP PRN for SOB/WHEEZING Meclizine HCl (Meclizine HCl) 25 Mg Tab, 25 MG PO DAILYPRN PRN for DIZZINESS Ondansetron (Zofran Odt) 4 Mg Tab, 4 MG PO BID PRN for NAUSEA Polyethylene Glycol (Miralax) 1 Pow Pow, 17 GM PO BID PRN for CONSTIPATION dilute in 8 ounces of water or juice Allergies Coded Allergies: MS - Aminoglycosides (Verified Allergy, Unknown, 11/01/18) MS - Bacitracin (Verified Allergy, Unknown, 11/01/18) MS - Capsaicin (Verified Allergy, Unknown, 11/01/18) MS - Carbamazepine (Verified Allergy, Unknown, 11/01/18) MS - Dapsone (Verified Allergy, Unknown, 11/01/18) MS - Latex (Verified Allergy, Unknown, 11/01/18) MS - Levofloxacin (Verified Allergy, Unknown, HEADACHE, 11/01/18) MS - Lisinopril (Verified Allergy, Unknown, 11/01/18) MS - Meperidine (Verified Allergy, Unknown, 11/01/18) MS - Metformin (Verified Allergy, Unknown, 11/01/18) MS - NSAIDs (Verified Allergy, Unknown, 11/01/18) MS - Neomycin (Verified Allergy, Unknown, 11/01/18) MS - Penicillins (Verified Allergy, Unknown, 11/01/18) MS - Penicillins Cross Reactors (Verified Allergy, Unknown, 11/01/18) MS - Phenobarbital (Verified Allergy, Unknown, 11/01/18) MS - Phenytoin (Verified Allergy, Unknown, 11/01/18) MS - Pioglitazone (Verified Allergy, Unknown, 11/01/18) MS - Polymyxin B (Verified Allergy, Unknown, 11/01/18) MS - Pregabalin (Verified Allergy, Unknown, HEADACHE, 11/01/18) MS - Quinolones (Verified Allergy, Unknown, 11/01/18) MS - Rosuvastatin (Verified Allergy, Unknown, 11/01/18) MICHELLE KELLEY MD Jan 29, 2019 21:34
[2019-01-29] MEDS ORDERED: ATOR40TA75 PO (21:37)
[2019-01-29] MEDS ORDERED: WARF-21 PO (21:40)
[2019-01-29] MEDS ORDERED: FURO40TA2 PO (21:40)
[2019-01-29] MEDS ORDERED: OMEP40CA2 PO (21:41)
[2019-01-29] MEDS ORDERED: ACET-683 PO (21:42)
[2019-01-29] MEDS ORDERED: GLUCAGON FOR INJ 1 MG VIAL (J1610) SC PRN (21:45)
[2019-01-29] MEDS ORDERED: DEXTROSE 50% 50 ML SYRINGE IV PRN (21:45)
[2019-01-29] MEDS ORDERED: GLUCOSE 4 GM CHEW TABLET PO PRN (21:45)
[2019-01-29] MEDS: FUROSEMIDE 100 MG/10 ML VIAL (J1940) IV SCH (22:51)
[2019-01-29] MEDS ORDERED: MECLIZINE 25 MG TABLET PO PRN (23:00)
[2019-01-29] MEDS ORDERED: NORCO, ANEXSIA 5/325MG TABLET (HYDROcodone/ACETAMINOPHEN) PO PRN (23:00)
[2019-01-29 23:50] VITALS: BP 156/70
[2019-01-30] VITALS (8 sets, daily range): BP systolic 111–153; BP diastolic 52–71; O2SAT 98
[2019-01-30] MEDS: DULoxetine 30 MG CAP (CYMBALTA) PO SCH ×2 (00:27→20:53)
[2019-01-30] MEDS: TAMSULOSIN 0.4 MG CAP PO SCH ×2 (00:27→20:53)
[2019-01-30] MEDS: PRAMIPEXOLE (MIRAPEX) 0.125 MG TAB PO SCH ×2 (00:28→20:53)
[2019-01-30] MEDS: FLUTICASONE PROP 0.05% NASAL SPRAY 16 GM (FLONASE) SCH ×3 (00:28→20:55)
[2019-01-30] MEDS: traZODone 50 MG TAB PO SCH ×2 (00:28→20:52)
[2019-01-30] MEDS: methylPREDNISolone INJ 125 MG/2 ML VIAL (J2930) IV SCH ×3 (00:28→23:19)
--- NOTE | 2019-01-30 02:12 | REP ---
Clinical: Dyspnea. Technique: AP and lateral. Comparison: 03/16/2017. Findings: Small to moderate right pleural effusion is appreciated along with right basilar atelectasis. Lung melissa demonstrate diffuse chronic increased interstitial markings and mild interstitial edema cannot be excluded. No focal consolidation. No pneumothorax. The cardiac silhouette is normal. Atherosclerotic changes of the aorta noted. Skeletal structures demonstrate degenerative changes. Impression: Small to moderate right pleural effusion and right basilar atelectasis. Cannot exclude interstitial edema. No focal consolidation. Electronically Signed by Ronal Ro MD 01/30/2019 02:04 A
[2019-01-30] MEDS: IPRATROPIUM 0.5MG/ALBUTEROL 2.5MG INH SOL UD 3ML (DUONEB)(J7620) NEB PRN ×2 (05:11→12:20)
--- NOTE | 2019-01-30 05:39 | ECGEPIP ---
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
[2019-01-30 06:10] LABS: HEMATOCRIT 28.5 % (42.0-52.0); HEMOGLOBIN 9.1 g/dl (13.5-17.5); MEAN CORPUSCULAR HGB CONC 31.9 g/dl (32.0-36.5); MEAN CORPUSCULAR VOLUME 90.8 fl (80.0-96.0); PLATELET COUNT, AUTOMATED 206 10^3/uL (150-450); RED BLOOD COUNT 3.14 10^6/uL (4.30-6.10); WHITE BLOOD COUNT 5.9 10^3/uL (4.0-10.0)
[2019-01-30 06:16] LABS: INR 2.2; PROTHROMBIN TIME 24.9 SECONDS (12.1-14.4)
[2019-01-30 06:28] LABS: CALCIUM LEVEL 8.1 MG/DL (8.8-10.2); CREATININE FOR GFR 3.92 MG/DL (0.70-1.30); GLOMERULAR FILTRATION RATE 16.4 (>49); POTASSIUM SERUM 5.1 MEQ/L (3.5-5.1)
[2019-01-30] MEDS: HumaLOG INSULIN (NovoLOG) PER UNIT SC SCH ×4 (08:51→20:54)
[2019-01-30] MEDS: OMEGA-3 1000MG CAPSULE PO SCH ×3 (08:52→20:53)
[2019-01-30] MEDS: FERROUS SULFATE 325MG TAB PO SCH (08:52)
[2019-01-30] MEDS: amLODIPine 10 MG TAB PO SCH (08:56)
[2019-01-30] MEDS: FUROSEMIDE 100 MG/10 ML VIAL (J1940) IV SCH ×2 (08:57→20:54)
[2019-01-30] MEDS ORDERED: HumaLOG INSULIN (NovoLOG) PER UNIT SC SCH ×2 (09:00)
[2019-01-30] MEDS: ACETAMINOPHEN 500 MG TAB PO PRN (09:54)
--- NOTE | 2019-01-30 10:01 | IPNPDOC ---
Subjective Date Seen The patient was seen on 01/30/19. Subjective Chief Complaint/HPI Patient is a comfortable, but still complaining of mild shortness of breath. As per patient, he has been urinating in the toilet, not measuring his urine output General: Reports: Normal Appetite; Denies: Chills, Night Sweats, Fatigue, Malaise Constitutional: Denies: Chills, Fever, Night Sweats Eyes: Denies: Pain, Vision change ENT: Denies: Head Aches, Ear Pain, Dysphagia Skin: Denies: Rash, Lesions, Breakdown Pulmonary: Reports: Dyspnea; Denies: Cough Cardiovascular: Denies: Chest Pain, Palpitations, Orthopnea, Paroxysmal Noc. Dyspnea, Lt Headedness Gastrointestinal: Denies: Nausea, Vomiting, Abdominal Pain, Diarrhea, Constipation Genitourinary: Denies: Dysuria, Frequency, Incontinence, Retention Hematologic: Denies: Bruising, Bleeding Excessively Musculoskeletal: Denies: Neck Pain, Back Pain, Joint Pain, Muscle Pain, Spasms Neurological: Denies: Weakness, Numbness, Change in speech, Confusion Psych: Reports: Mood Normal; Denies: Depression, Memory Issues Objective Physical Examination General Exam: Positive: Alert, No Acute Distress Eye Exam: Positive: PERRLA, Conjunctiva & lids normal, EOMI; Negative: Sclera icteric ENT Exam: Positive: Atraumatic, Mucous membr. moist/pink, Pharynx Normal Neck Exam: Positive: Supple; Negative: JVD, thyromegaly Chest Exam: Positive: Other (decreased breath sounds bilaterally with scattered wheezing at bases) Heart Exam: Positive: Rate Normal, Regular Rhythm, Normal S1, Normal S2; Negative: Murmurs, Rubs Telemetry: Positive: No significant arrhythmia Abdomen Exam: Positive: Normal bowel sounds, Soft; Negative: Tenderness, Hepatospenomegaly Male Exam: Positive: Normal Genital Exam Extremity Exam: Positive: Normal pulses; Negative: Clubbing, Cyanosis, Edema Skin Exam: Positive: Nl turgor and temperature; Negative: Rash, Breakdown Neuro Exam: Positive: Normal Gait, Normal Speech, Cranial Nerves 3-12 NL, Reflexes 2+ Psych Exam: Positive: Mental status NL, Mood NL, Oriented x 3 Assessment /Plan Problems (1) COPD with acute exacerbation Status: Acute Problem Text: Continue IV steroids Continue DuoNeb as per orders Oxygen support as needed Out of bed as tolerated and (2) Pleural effusion Status: Acute Problem Text: Patient is already on diuretics Related to a strict I and O's to measure the urine output and keep patient in negative balance O2 support as needed Monitor renal functions Ambulation recommended DM Accuchecks, sliding scale insulin. hold any home glycemic meds. 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 follow daily INR. CKD Stage 4 Possibly contributing to pleural effusion and fluid status. Will need to continue following up with Nephro as outpatient for HD evaluation. (3) Chronic renal disease Status: Acute Plan/VTE VTE Prophylaxis Ordered?: Yes VS, I&O, 24H, Fishbone Vital Signs/I&O Vital Signs Date Time Temp Pulse Resp B/P (MAP) Pulse Ox O2 Delivery O2 Flow Rate FiO2 01/30/19 08:56 101 145/69 01/30/19 06:00 98.9 14 97 01/30/19 01:41 Room Air I&O- Last 24 Hours up to 6 AM 01/30/19 06:00 Intake Total 300 ml Output Total 500 ml Balance -200 ml Laboratory Data 24H LABS Laboratory Tests 2 01/29/19 19:41: Immature Granulocyte % (Auto) 0.3, White Blood Count 7.3, Red Blood Count 3.25L, Hemoglobin 9.6L, Hematocrit 30.3L, Mean Corpuscular Volume 93.2, Mean Corpuscular Hemoglobin 29.5, Mean Corpuscular Hemoglobin Concent 31.7L, Red Cell Distribution Width 14.5, Platelet Count 214, Neutrophils (%) (Auto) 63.4, Lymphocytes (%) (Auto) 19.3L, Monocytes (%) (Auto) 6.8H, Eosinophils (%) (Auto) 9.7H, Basophils (%) (Auto) 0.5, Neutrophils # (Auto) 4.6, Lymphocytes # (Auto) 1.4L, Monocytes # (Auto) 0.5, Eosinophils # (Auto) 0.7H, Basophils # (Auto) 0.0, Nucleated Red Blood Cells % (auto) 0.0, Prothrombin Time 23.9H, Prothromb Time International Ratio 2.09, Activated Partial Thromboplast Time 34.6, Anion Gap 6L, Glomerular Filtration Rate 16.4L, Blood Urea Nitrogen 53H, Creatinine 3.92H, Sodium Level 139, Potassium Level 5.0, Chloride Level 112H, Carbon Dioxide Level 21, Calcium Level 7.6L, Total Creatine Kinase 540H, Creatine Kinase MB 9.0H, Creatine Kinase MB Relative Index 1.69, Troponin I 0.04 01/29/19 23:48: Bedside Glucose (Misc Panel) 57L 01/30/19 00:29: Bedside Glucose (Misc Panel) 85 01/30/19 05:34: Nucleated Red Blood Cells % (auto) 0.0, Prothrombin Time 24.9H, Prothromb Time International Ratio 2.20, Anion Gap 10, Glomerular Filtration Rate 16.4L, Blood Urea Nitrogen 56H, Creatinine 3.92H, Sodium Level 138, Potassium Level 5.1, Chloride Level 110H, Carbon Dioxide Level 18L, Calcium Level 8.1L CBC/BMP Laboratory Tests 01/29/19 19:41 Red Blood Count 3.25 L, Mean Corpuscular Volume 93.2, Mean Corpuscular Hemoglobin 29.5, Mean Corpuscular Hemoglobin Concent 31.7 L, Red Cell Distribution Width 14.5, Neutrophils (%) (Auto) 63.4, Lymphocytes (%) (Auto) 19.3 L, Monocytes (%) (Auto) 6.8 H, Eosinophils (%) (Auto) 9.7 H, Basophils (%) (Auto) 0.5, Neutrophils # (Auto) 4.6, Lymphocytes # (Auto) 1.4 L, Monocytes # (Auto) 0.5, Eosinophils # (Auto) 0.7 H, Basophils # (Auto) 0.0, Calcium Level 7.6 L, Total Creatine Kinase 540 H 01/30/19 05:34 Red Blood Count 3.14 L, Mean Corpuscular Volume 90.8, Mean Corpuscular Hemoglobin 29.0, Mean Corpuscular Hemoglobin Concent 31.9 L, Red Cell Distribution Width 14.4, Calcium Level 8.1 L GA GIL MD Jan 30, 2019 10:01
[2019-01-30] MEDS: SUCRALFATE 1 GM TAB PO SCH ×3 (12:28→20:53)
[2019-01-30] MEDS: LEVEMIR (INSULIN DETEMIR) 1 UNITS/0.01ML SC SCH ×2 (12:31→20:55)
[2019-01-30] MEDS: WARFARIN SOD 5 MG TAB PO SCH (16:46)
[2019-01-30] MEDS: OMEPRAZOLE 20 MG CAP PO SCH (17:46)
[2019-01-30] MEDS: ATORVASTATIN 20 MG TAB PO SCH (20:52)
[2019-01-30] MEDS: CEPACOL LOZENGE PO PRN ×2 (20:53→23:31)
[2019-01-31 02:00] VITALS: BP 150/71
[2019-01-31 06:00] VITALS: BP 145/68
[2019-01-31 06:17] LABS: INR 2.18; PROTHROMBIN TIME 24.7 SECONDS (12.1-14.4)
[2019-01-31] MEDS: HumaLOG INSULIN (NovoLOG) PER UNIT SC SCH ×4 (06:50→22:27)
[2019-01-31] MEDS: OMEGA-3 1000MG CAPSULE PO SCH ×3 (07:46→22:27)
[2019-01-31] MEDS: FUROSEMIDE 100 MG/10 ML VIAL (J1940) IV SCH ×2 (07:46→22:29)
[2019-01-31] MEDS: FERROUS SULFATE 325MG TAB PO SCH (07:46)
[2019-01-31] MEDS: SUCRALFATE 1 GM TAB PO SCH ×4 (07:46→22:26)
[2019-01-31] MEDS: FLUTICASONE PROP 0.05% NASAL SPRAY 16 GM (FLONASE) SCH ×2 (07:46→22:28)
[2019-01-31] MEDS: amLODIPine 10 MG TAB PO SCH (07:47)
[2019-01-31 10:00] VITALS: BP 138/66
[2019-01-31 11:54] LABS: CALCIUM LEVEL 8.2 MG/DL (8.8-10.2); CREATININE FOR GFR 4.42 MG/DL (0.70-1.30); GLOMERULAR FILTRATION RATE 14.3 (>49); POTASSIUM SERUM 5.5 MEQ/L (3.5-5.1)
[2019-01-31] MEDS: LEVEMIR (INSULIN DETEMIR) 1 UNITS/0.01ML SC SCH ×2 (12:05→22:28)
[2019-01-31] MEDS: methylPREDNISolone INJ 125 MG/2 ML VIAL (J2930) IV SCH ×2 (12:05→23:15)
[2019-01-31 14:00] VITALS: BP 130/62
--- NOTE | 2019-01-31 15:51 | IPNPDOC ---
Subjective Date Seen The patient was seen on 01/31/19. Subjective Chief Complaint/HPI Patient is little shortness of breath and has difficulty lying down flat General: Reports: Normal Appetite; Denies: Chills, Night Sweats, Fatigue, Malaise Constitutional: Denies: Chills, Fever, Night Sweats Eyes: Denies: Pain, Vision change ENT: Denies: Head Aches, Ear Pain, Dysphagia Skin: Denies: Rash, Lesions, Breakdown Pulmonary: Reports: Dyspnea; Denies: Cough Cardiovascular: Denies: Chest Pain, Palpitations, Orthopnea, Paroxysmal Noc. Dyspnea, Lt Headedness Gastrointestinal: Denies: Nausea, Vomiting, Abdominal Pain, Diarrhea, Constipation Genitourinary: Denies: Dysuria, Frequency, Incontinence, Retention Hematologic: Denies: Bruising, Bleeding Excessively Musculoskeletal: Denies: Neck Pain, Back Pain, Joint Pain, Muscle Pain, Spasms Neurological: Denies: Weakness, Numbness, Change in speech, Confusion Psych: Reports: Mood Normal; Denies: Depression, Memory Issues Objective Physical Examination General Exam: Positive: Alert, No Acute Distress Eye Exam: Positive: PERRLA, Conjunctiva & lids normal, EOMI; Negative: Sclera icteric ENT Exam: Positive: Atraumatic, Mucous membr. moist/pink, Pharynx Normal Neck Exam: Positive: Supple; Negative: JVD, thyromegaly Chest Exam: Positive: Other (decreased breath sounds bilaterally with scattered wheezing at bases) Heart Exam: Positive: Rate Normal, Regular Rhythm, Normal S1, Normal S2; Negative: Murmurs, Rubs Telemetry: Positive: No significant arrhythmia Abdomen Exam: Positive: Normal bowel sounds, Soft; Negative: Tenderness, Hepatospenomegaly Male Exam: Positive: Normal Genital Exam Extremity Exam: Positive: Normal pulses; Negative: Clubbing, Cyanosis, Edema Skin Exam: Positive: Nl turgor and temperature; Negative: Rash, Breakdown Neuro Exam: Positive: Normal Gait, Normal Speech, Cranial Nerves 3-12 NL, Reflexes 2+ Psych Exam: Positive: Mental status NL, Mood NL, Oriented x 3 Assessment /Plan Problems (1) COPD with acute exacerbation Status: Acute Problem Text: Continue IV steroids Continue DuoNeb as per orders Oxygen support as needed Out of bed as tolerated Symptomatic and supportive care Discussed with patient and his at bedside (2) Pleural effusion Status: Acute Problem Text: Patient is already on diuretics Related to a strict I and O's to measure the urine output and keep patient in negative balance O2 support as needed Continue IV Lasix Echocardiogram Monitor renal functions Ambulation recommended DM Accuchecks, sliding scale insulin. hold any home glycemic meds. 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 follow daily INR. CKD Stage 4 Possibly contributing to pleural effusion and fluid status. Will need to continue following up with Nephro as outpatient for HD evaluation. (3) Chronic renal disease Status: Acute Plan/VTE VTE Prophylaxis Ordered?: Yes VS, I&O, 24H, Fishbone Vital Signs/I&O Vital Signs Date Time Temp Pulse Resp B/P (MAP) Pulse Ox O2 Delivery O2 Flow Rate FiO2 01/31/19 14:00 97.7 92 11 130/62 (84) 98 01/30/19 01:41 Room Air I&O- Last 24 Hours up to 6 AM 01/31/19 06:00 Intake Total 1940 ml Output Total 2075 ml Balance -135 ml Laboratory Data 24H LABS Laboratory Tests 2 01/30/19 16:46: Bedside Glucose (Misc Panel) 287H 01/30/19 20:23: Bedside Glucose (Misc Panel) 254H 01/31/19 05:19: Prothrombin Time 24.7H, Prothromb Time International Ratio 2.18 01/31/19 06:30: Bedside Glucose (Misc Panel) 221H 01/31/19 10:54: Anion Gap 13, Glomerular Filtration Rate 14.3L, Blood Urea Nitrogen 75H, Creatinine 4.42H, Sodium Level 136, Potassium Level 5.5H, Chloride Level 107, Carbon Dioxide Level 16L, Calcium Level 8.2L 01/31/19 11:29: Bedside Glucose (Misc Panel) 182H CBC/BMP Laboratory Tests 01/31/19 10:54 Calcium Level 8.2 L GA GIL MD Jan 31, 2019 15:51
[2019-01-31] MEDS: WARFARIN SOD 5 MG TAB PO SCH (16:59)
[2019-01-31] MEDS: OMEPRAZOLE 20 MG CAP PO SCH (17:00)
[2019-01-31 18:00] VITALS: BP_SYST 0; BP_SYST 152; BP_DIAS 0; BP_DIAS 66
--- NOTE | 2019-01-31 18:20 | REP ---
CHEST, SINGLE VIEW: Single view of the chest is performed and compared to prior study of 01/29/2019. There is mild cardiomegaly. There is mild vascular congestion. There is a small right pleural effusion. This is unchanged since the prior exam. There is calcification of the thoracic aorta. Mediastinal silhouette is unchanged. There are degenerative changes of the spine. Interstitial edema pattern has improved. IMPRESSION: Mild cardiomegaly and vascular congestion. Improved interstitial edema. Persistent small right effusion. Electronically Signed by Curtis Caballero MD 02/01/2019 03:19 P
[2019-01-31] MEDS: IPRATROPIUM 0.5MG/ALBUTEROL 2.5MG INH SOL UD 3ML (DUONEB)(J7620) NEB PRN (20:01)
[2019-01-31 22:00] VITALS: BP 163/75
[2019-01-31] MEDS: TAMSULOSIN 0.4 MG CAP PO SCH (22:26)
[2019-01-31] MEDS: traZODone 50 MG TAB PO SCH (22:26)
[2019-01-31] MEDS: DULoxetine 30 MG CAP (CYMBALTA) PO SCH (22:26)
[2019-01-31] MEDS: ATORVASTATIN 20 MG TAB PO SCH (22:27)
[2019-01-31] MEDS: PRAMIPEXOLE (MIRAPEX) 0.125 MG TAB PO SCH (22:27)
--- NOTE | 2019-01-31 22:47 | ECHO ---
DATE OF PROCEDURE: 01/31/2019 Date of : 1950 Age: 68 Gender: Male Height: 69 inches Weight: 194 pounds Body surface area: 2.04 meters squared Inpatient: [address] [place] [address], room 4208 REFERRING PHYSICIAN: Dr. Ced Steele INDICATION: Dyspnea. MEASUREMENTS: 2D measurements: RV: 3.7 cm LV: 5.6 cm Septum: 1.1 cm Posterior wall: 1.1 cm Aortic root: 3.5 cm LA: 4.7 cm LVEF: 75 % Doppler measurements: AV: 1.94 meters per second LVOT: 1.07 meters per second LVOT diameter: 2.2 cm Mean AV systolic gradient: 9 mmHg MV-E: 140, A: 110, EA ratio: 1.3 Early mitral deceleration time: 169 milliseconds E prime: 5.8, A prime: 11.4, E/E prime ratio: 24 Pulmonary capillary wedge pressure: 23 mmHg PV: 1.1 meters per second Pulmonary artery acceleration time: 95 milliseconds RVSP: 58 mmHg IVC: 2.2 cm COMMENTS: Without intraventricular conduction disturbance. M-mode and two-dimensional echocardiography was performed with pulsed, continuous wave, color flow and tissue Doppler studies. Mildly dilated left ventricle with normal wall thickness and hyperkinetic wall motion. Moderately dilated left atrium. Elevated estimated mean left atrial pressure. Normal right ventricular size and motion with Doppler evidence of at least moderate pulmonary hypertension. Slightly dilated right atrium and inferior vena cava upper limits of normal with reduced respiratory collapse in keeping with an elevated central venous pressure. Mild aortic valvular sclerosis without functional abnormality. Normal aortic root size. Mild thickening of the mitral annulus and leaflet edges with adequate leaflet excursion and no posterior systolic buckling but moderately severe mitral insufficiency. Normal appearing tricuspid valve with mild insufficiency. No apparent intracardiac mass or pericardial effusion. In light of the above test findings, it may be prudent to consider a transesophageal echocardiogram to further define mitral valvular structure and the degree of mitral insufficiency. MTDD
[2019-02-01] VITALS (9 sets, daily range): BP systolic 148–164; BP diastolic 67–80; O2SAT 97–100
[2019-02-01 06:11] LABS: HEMATOCRIT 28.4 % (42.0-52.0); HEMOGLOBIN 8.8 g/dl (13.5-17.5); MEAN CORPUSCULAR HEMOGLOBIN 28.5 pg (27.0-33.0); MEAN CORPUSCULAR VOLUME 91.9 fl (80.0-96.0); PLATELET COUNT, AUTOMATED 250 10^3/uL (150-450); RED BLOOD COUNT 3.09 10^6/uL (4.30-6.10); WHITE BLOOD COUNT 10.7 10^3/uL (4.0-10.0)
[2019-02-01 06:22] LABS: INR 2.04; PROTHROMBIN TIME 23.4 SECONDS (12.1-14.4)
[2019-02-01 06:38] LABS: ALBUMIN 2.6 GM/DL (3.2-5.2); BILIRUBIN,TOTAL 0.2 MG/DL (0.2-1.0); CALCIUM LEVEL 8.1 MG/DL (8.8-10.2); CREATININE FOR GFR 4.49 MG/DL (0.70-1.30); POTASSIUM SERUM 4.6 MEQ/L (3.5-5.1); TOTAL PROTEIN 5.6 GM/DL (6.4-8.2)
[2019-02-01] MEDS: FERROUS SULFATE 325MG TAB PO SCH (08:07)
[2019-02-01] MEDS: OMEGA-3 1000MG CAPSULE PO SCH ×3 (08:07→21:28)
[2019-02-01] MEDS: HumaLOG INSULIN (NovoLOG) PER UNIT SC SCH ×4 (08:07→20:54)
[2019-02-01] MEDS: amLODIPine 10 MG TAB PO SCH (08:08)
[2019-02-01] MEDS: FUROSEMIDE 100 MG/10 ML VIAL (J1940) IV SCH ×2 (08:09→20:42)
[2019-02-01] MEDS: SUCRALFATE 1 GM TAB PO SCH ×3 (08:10→17:14)
[2019-02-01] MEDS: FLUTICASONE PROP 0.05% NASAL SPRAY 16 GM (FLONASE) SCH ×2 (08:11→20:44)
[2019-02-01] MEDS: IPRATROPIUM 0.5MG/ALBUTEROL 2.5MG INH SOL UD 3ML (DUONEB)(J7620) NEB PRN (08:46)
[2019-02-01] MEDS: methylPREDNISolone INJ 125 MG/2 ML VIAL (J2930) IV SCH (10:04)
[2019-02-01 12:22] LABS: CHOLESTEROL RISK RATIO 3.9 (<5); PERCENT SATURATION 35.1 % (19.7-50.0)
[2019-02-01 12:35] LABS: HEMOGLOBIN A1c 6.2 %
[2019-02-01] MEDS ORDERED: DARBEPOETIN 100 MCG/0.5 ML *DIALYSIS* SYRINGE (J0882) IV SCH (13:15)
[2019-02-01 13:36] LABS: HEPATITIS B CORE ANTIBODY IGM NEGATIVE (NEGATIVE); HEPATITIS B SURFACE ANTIBODY NEGATIVE (POSITIVE); HEPATITIS B SURFACE ANTIGEN NEGATIVE (NEGATIVE)
--- NOTE | 2019-02-01 14:28 | IPNPDOC ---
Subjective Date Seen The patient was seen on 02/01/19. Subjective Chief Complaint/HPI Patient feels comfortable than before. Able to sit up but unable still unable to lie down flat due to shortness of breath General: Reports: Normal Appetite; Denies: Chills, Night Sweats, Fatigue, Malaise Constitutional: Denies: Chills, Fever, Night Sweats Eyes: Denies: Pain, Vision change ENT: Denies: Head Aches, Ear Pain, Dysphagia Skin: Denies: Rash, Lesions, Breakdown Pulmonary: Denies: Dyspnea, Cough Cardiovascular: Reports: Paroxysmal Noc. Dyspnea, Other Symptoms (orthopnea); Denies: Chest Pain, Palpitations, Orthopnea, Lt Headedness Gastrointestinal: Denies: Nausea, Vomiting, Abdominal Pain, Diarrhea, Constipation Genitourinary: Denies: Dysuria, Frequency, Incontinence, Retention Hematologic: Denies: Bruising, Bleeding Excessively Musculoskeletal: Denies: Neck Pain, Back Pain, Joint Pain, Muscle Pain, Spasms Neurological: Denies: Weakness, Numbness, Change in speech, Confusion Psych: Reports: Mood Normal; Denies: Depression, Memory Issues Objective Physical Examination General Exam: Positive: Alert, No Acute Distress Eye Exam: Positive: PERRLA, Conjunctiva & lids normal, EOMI; Negative: Sclera icteric ENT Exam: Positive: Atraumatic, Mucous membr. moist/pink, Pharynx Normal Neck Exam: Positive: Supple; Negative: JVD, thyromegaly Chest Exam: Positive: Other (decreased breath sounds bilaterally with scattered wheezing at bases) Heart Exam: Positive: Rate Normal, Regular Rhythm, Normal S1, Normal S2; Negative: Murmurs, Rubs Telemetry: Positive: No significant arrhythmia Abdomen Exam: Positive: Normal bowel sounds, Soft; Negative: Tenderness, Hepatospenomegaly Male Exam: Positive: Normal Genital Exam Extremity Exam: Positive: Normal pulses; Negative: Clubbing, Cyanosis, Edema Skin Exam: Positive: Nl turgor and temperature; Negative: Rash, Breakdown Neuro Exam: Positive: Normal Gait, Normal Speech, Cranial Nerves 3-12 NL, Reflexes 2+ Psych Exam: Positive: Mental status NL, Mood NL, Oriented x 3 Assessment /Plan Problems (1) COPD with acute exacerbation Status: Acute Problem Text: Continue IV steroids Continue DuoNeb as per orders Oxygen support as needed Out of bed as tolerated Symptomatic and supportive care Discussed with patient and his at bedside (2) Pleural effusion Status: Acute Problem Text: Patient is already on diuretics Related to a strict I and O's to measure the urine output and keep patient in negative balance O2 support as needed Continue IV Lasix Echocardiogram Monitor renal functions Ambulation recommended DM Accuchecks, sliding scale insulin. hold any home glycemic meds. 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 follow daily INR. CKD Stage 4 Possibly contributing to pleural effusion and fluid status. Will need to continue following up with Nephro as outpatient for HD evaluation. (3) Chronic renal disease Status: Acute Problem Text: Discussed with Dr. hood, patient probably needs a hemodialysis He will be scheduled for hemodialysis today or tomorrow by nephrology Plan/VTE VTE Prophylaxis Ordered?: Yes VS, I&O, 24H, Fishbone Vital Signs/I&O Vital Signs Date Time Temp Pulse Resp B/P (MAP) Pulse Ox O2 Delivery O2 Flow Rate FiO2 02/01/19 10:00 98.9 102 19 150/72 (98) 98 02/01/19 03:44 Room Air I&O- Last 24 Hours up to 6 AM 02/01/19 06:00 Intake Total 1380 ml Output Total 1750 ml Balance -370 ml Laboratory Data 24H LABS Laboratory Tests 2 01/31/19 16:43: Bedside Glucose (Misc Panel) 315H 01/31/19 19:46: Bedside Glucose (Misc Panel) 166H 02/01/19 05:22: Nucleated Red Blood Cells % (auto) 0.0, Prothrombin Time 23.4H, Prothromb Time International Ratio 2.04, Anion Gap 12, Glomerular Filtration Rate 14.0L, Blood Urea Nitrogen 87H, Creatinine 4.49H, Sodium Level 137, Potassium Level 4.6, Chloride Level 109H, Carbon Dioxide Level 16L, Calcium Level 8.1L, Aspartate Amino Transf (AST/SGOT) 24, Alanine Aminotransferase (ALT/SGPT) 34, Alkaline Phosphatase 55, Total Bilirubin 0.2, Triglycerides Level 135, LDL Cholesterol 118H, Total Protein 5.6L, Albumin 2.6L, Iron Level 92, Total Iron Binding Capacity 262, Transferrin % Saturation 35.1, Ferritin 51, Albumin/Globulin Ratio 0.87L, Total Cholesterol 195, Non-HDL Cholesterol (LDL + VLDL) 145, Total HDL Cholesterol 50, Cholesterol/HDL Ratio 3.900 02/01/19 05:32: Bedside Glucose (Misc Panel) 228H 02/01/19 11:45: Estimated Mean Plasma Glucose 131H, Hemoglobin A1c 6.2, Hepatitis B Surface Antigen NEGATIVE, Hepatitis B Surface Antibody NEGATIVE, Hepatitis B Core IgM Antibody NEGATIVE, Hepatitis C Antibody Index 0.0 CBC/BMP Laboratory Tests 02/01/19 05:22 Red Blood Count 3.09 L, Mean Corpuscular Volume 91.9, Mean Corpuscular Hemoglobin 28.5, Mean Corpuscular Hemoglobin Concent 31.0 L, Red Cell Distribution Width 14.5, Calcium Level 8.1 L, Aspartate Amino Transf (AST/SGOT) 24, Alanine Aminotransferase (ALT/SGPT) 34, Alkaline Phosphatase 55, Total Bilirubin 0.2, Triglycerides Level 135, LDL Cholesterol 118 H, Total Protein 5.6 L, Albumin 2.6 L GA GIL MD Feb 01, 2019 14:28
[2019-02-01] MEDS: LEVEMIR (INSULIN DETEMIR) 1 UNITS/0.01ML SC SCH ×2 (14:41→20:42)
[2019-02-01] MEDS: WARFARIN SOD 7.5 MG TAB PO SCH (17:14)
[2019-02-01] MEDS: OMEPRAZOLE 20 MG CAP PO SCH (17:14)
[2019-02-01] MEDS ORDERED: IRON SUCROSE 100MG 5ML VIAL (J1756 PER 1MG) IV SCH (19:30)
[2019-02-01] MEDS: TAMSULOSIN 0.4 MG CAP PO SCH (20:42)
[2019-02-01] MEDS: ACETAMINOPHEN 500 MG TAB PO PRN (20:43)
[2019-02-01] MEDS: DULoxetine 30 MG CAP (CYMBALTA) PO SCH (20:43)
[2019-02-01] MEDS: traZODone 50 MG TAB PO SCH (20:43)
[2019-02-01] MEDS: ATORVASTATIN 20 MG TAB PO SCH (20:43)
[2019-02-01] MEDS: PRAMIPEXOLE (MIRAPEX) 0.125 MG TAB PO SCH (20:43)
[2019-02-01] MEDS: TRIAMCINOLONE ACET 0.1% OINTMENT 80 GM TOP SCH (20:44)
--- NOTE | 2019-02-01 20:58 | CR ---
DATE OF CONSULTATION: 02/01/2019 REQUESTING PHYSICIAN: Ced Steele MD CONSULTING PHYSICIAN: Latanya Martinez MD REASON FOR CONSULTATION: Management of chronic kidney disease and volume status. CHIEF COMPLAINT: Patient presented to the hospital on January 29, 2019 with progressive shortness of breath. HISTORY OF PRESENT ILLNESS: Mr. Nile Castillo is a 68-year-old male with past medical history of chronic kidney disease, stage IV with maturing right upper arm AV fistula, diabetes mellitus type 2, hypertension, chronic obstructive pulmonary disease (COPD), multiple other comorbidities as mentioned below. He regularly follows up with Dr. Ramirez in nephrology clinic and he knows that his renal function is gradually deteriorating. He presented to the hospital on January 29, 2019 with progressive shortness of breath for many weeks. He also reported almost 11 pounds of weight gain when he presented to the hospital. He denied any fever or chills, cough or wheezing. He was admitted under the hospitalist service and started on IV diuretics for dyspnea secondary to fluid overload. The patient responded to the IV diuretics. His shortness of breath is slightly better, but his renal function is gradually declining. His GFR was almost 16 on arrival and is 14 today with a creatinine of 4.4. Nephrology service was called for further help in the management of this patient who is approaching end-stage renal disease and possible evaluation for need of hemodialysis. I saw and evaluated the patient at the bedside. His was also present at the bedside. Patient reported that with all the diuretics that have been given to him he has some mild improvement in shortness of breath, but he still gets shortness of breath when he is walking and he also reported orthopnea. PAST MEDICAL HISTORY: Chronic kidney disease, stage IV. COPD. Diabetes mellitus, type 2. Hypertension. History of recurrent deep venous thrombosis (DVT). Anemia secondary to chronic kidney disease, on Procrit as outpatient. PAST SURGICAL HISTORY: History of right upper arm AV fistula placement. History of neck fusion surgery. History of esophagogastroduodenoscopy (EGD) and colonoscopy. Carpal tunnel surgery. ALLERGIES: Patient is allergic to multiple medications including AMINOGLYCOSIDES, NSAIDS, PENICILLIN, BACITRACIN, CAPSICIN, CARBAMAZEPINE, DAPSONE, GABAPENTIN, LASIX and QUINOLONES. FAMILY HISTORY: No significant family history of end-stage renal disease requiring hemodialysis. There is positive history of ovarian cancer and diabetes in his sister. SOCIAL HISTORY: Patient lives at home with his . He denies any illicit drug abuse or alcohol abuse at this point. REVIEW OF SYSTEMS: CONSTITUTIONAL: The patient reports feeling weak and tired. EYES: Denies any blurry vision or double vision. ENT: Denies any dysphagia, odynophagia. CARDIOVASCULAR: Denies any chest pain or palpitations. He does report lower extremity edema. RESPIRATORY: He reports shortness of breath with moderate exertion. GASTROINTESTINAL (GI): Denies any nausea or vomiting. GENITOURINARY: He denies any dysuria or hematuria. He does report chronic kidney disease. MUSCULOSKELETAL: He denies any muscles aches or pains. SKIN: He denies any rashes or ulcers. HEMATOLOGICAL/ONCOLOGICAL: He does report history of anemia requiring Procrit. ENDOCRINE: He reports diabetes mellitus type 2. All other review of system is negative. PHYSICAL EXAMINATION: GENERAL: The patient is awake, alert and oriented times three. Sitting up in the bed. In mild respiratory distress. VITAL SIGNS: Temperature is 98.9 degrees Fahrenheit. Blood pressure 150/72, pulse is 102, respiratory rate of 19, saturating 98% on room air. HEAD/NECK: Extraocular muscles intact. Pupils equally round and reactive to light. Mucous membranes are moist. Neck is supple. There is mildly elevated jugular venous distention (JVD). CARDIOVASCULAR: S1, S2, regular rate. 2+ edema of the bilateral lower extremities. RESPIRATORY: Decreased breath sounds at the bases and mild crepitations in the bases at deep inspiration and focal resonance is decreased bilaterally in the bases. ABDOMEN: Soft. Positive bowel sounds. Nontender. No organomegaly. GENITOURINARY: Bladder is not palpable. MUSCULOSKELETAL: No clubbing or cyanosis. Pulses are 2+. 2+ edema of the bilateral lower extremities. CENTRAL NERVOUS SYSTEM: No focal deficit. Power is 5/5 in all extremities. LABORATORY REVIEW: CBC showed a WBC of 10.7, hemoglobin is 8.8, platelets are 250. BMP showed sodium 137, potassium 4.6, chloride 109, bicarbonate 16, BUN 87, creatinine is 4.4. A1c is 6.2. Calcium is 8.1. Iron is 92. TIBC is 262. Transferrin saturation is 35.1. Ferritin is 51. Hepatis B surface antigen is negative. Hepatitis B surface antibody is negative. Hepatis B core antibody is negative. IMAGING: Chest x-ray was done yesterday which showed mild cardiomegaly and vascular congestion, improving interstitial edema and persistent small right-sided pleural effusion. CURRENT INPATIENT MEDICATIONS: Patient's medications were all reviewed by me. He is currently on Tylenol as needed, [place] as needed for pain, DuoNebs for wheezing, amlodipine 10 mg daily, atorvastatin 40 mg daily, Cepacol lozenges, Cymbalta 60 mg at bedtime, iron tablets 325 mg by mouth daily, Lasix 60 mg IV every 12 hourly, insulin Levemir 5 units subcutaneous at bedtime. Insulin Levemir 8 units in the morning. Insulin sliding scale. Solu-Medrol 60 mg IV every 12 hourly. Omeprazole 40 mg daily. Carafate 1 gram by mouth 4 times a day. Flomax 0.4 mg by mouth at bedtime. Trazodone 50 mg by mouth every p.m. Coumadin 5 mg Wednesday, Wednesday, , Wednesday, Wednesday and 7.5 mg on Wednesday and Wednesday. ASSESSMENT: 68-year-old male with baseline chronic kidney disease, stage IV who has progressed to end-stage renal disease. He has history of diabetes mellitus type 2 and hypertension. PLAN: 1. End-stage renal disease. Patient has progressed to end-stage renal disease. His GFR is already 14. He is fluid overloaded. He has metabolic acidosis. I discussed starting the hemodialysis with the patient. He and his both agree to initiate hemodialysis. Patient was sent to dialysis center and I supervised his first session of hemodialysis. He will be dialyzed for two hours and I will try to remove 1 liter of fluid as tolerated by his blood pressure. 2. Shortness of breath secondary to fluid overload. Continue current dose of Lasix 60 mg IV every 12 hourly. Once volume status is optimized, I would stop his IV diuretics. 3. Anemia and end-stage renal disease. I have started the patient on Aranesp 100 mcg IV with hemodialysis. Patient has LATEX allergy but I confirmed with the pharmacy latex is only found in the cap of the injection. There is no latex inside the medicine. Continue the oral iron. I am also going to give him some IV iron, Venofer 100 mg times five doses. 4. Hypertension with chronic kidney disease. Continue current dose of amlodipine 10 mg by mouth daily. Volume management would also help improve patient's blood pressure. 5. Recurrent DVT. Continue home dose of Coumadin. INR is therapeutic. 6. Metabolic acidosis. It is secondary to end-stage renal disease. Acidosis will be managed with hemodialysis. No need of oral bicarbonate administration at this time. 7. Diabetes mellitus type 2. It is currently well controlled. A1c is 6.2. Continue current dose of insulin Levemir and insulin sliding scale. 8. COPD. Patient is being treated for possible COPD exacerbation, however, as per history and physical exam, on arrival, patient was not wheezing and he has no apparent wheezing today on the clinical exam either. I am going to stop the steroids. 9. Secondary hyperparathyroidism. I am going to check the parathyroid hormone levels in the morning. Thank you for involving me in the care of this patient. I shall be happy to follow this patient along with you tomorrow morning.
[2019-02-02] VITALS (7 sets, daily range): BP systolic 149–169; BP diastolic 64–87; O2SAT 95–99
[2019-02-02] MEDS: FERROUS SULFATE 325MG TAB PO SCH (05:49)
[2019-02-02] MEDS: OMEGA-3 1000MG CAPSULE PO SCH ×3 (05:49→21:40)
[2019-02-02 05:50] LABS: HEMATOCRIT 30.7 % (42.0-52.0); HEMOGLOBIN 9.9 g/dl (13.5-17.5); MEAN CORPUSCULAR HGB CONC 32.2 g/dl (32.0-36.5); PLATELET COUNT, AUTOMATED 321 10^3/uL (150-450); RED BLOOD COUNT 3.41 10^6/uL (4.30-6.10); WHITE BLOOD COUNT 13.3 10^3/uL (4.0-10.0)
[2019-02-02] MEDS: FUROSEMIDE 100 MG/10 ML VIAL (J1940) IV SCH ×2 (05:50→21:39)
[2019-02-02] MEDS: amLODIPine 10 MG TAB PO SCH (05:50)
[2019-02-02] MEDS: FLUTICASONE PROP 0.05% NASAL SPRAY 16 GM (FLONASE) SCH ×2 (05:51→21:39)
[2019-02-02] MEDS: TRIAMCINOLONE ACET 0.1% OINTMENT 80 GM TOP SCH ×2 (05:51→21:39)
[2019-02-02 06:04] LABS: INR 2.09; PROTHROMBIN TIME 23.9 SECONDS (12.1-14.4)
[2019-02-02 06:19] LABS: ALBUMIN 2.6 GM/DL (3.2-5.2); CALCIUM LEVEL 8.1 MG/DL (8.8-10.2); CREATININE FOR GFR 3.72 MG/DL (0.70-1.30); GLOMERULAR FILTRATION RATE 17.4 (>49); MAGNESIUM LEVEL 1.6 MG/DL (1.8-2.4); PHOSPHORUS LEVEL 3.6 MG/DL (2.5-4.9); POTASSIUM SERUM 4.4 MEQ/L (3.5-5.1)
[2019-02-02] MEDS: HumaLOG INSULIN (NovoLOG) PER UNIT SC SCH ×4 (06:21→21:00)
[2019-02-02] MEDS ORDERED: [UNRECOGNIZED DRUG - OTHER] IM ONE (10:00)
[2019-02-02] MEDS: MIRALAX *UNIT DOSE* 17GM PACKET PO PRN (10:30)
[2019-02-02] MEDS: ACETAMINOPHEN 500 MG TAB PO PRN (10:32)
--- NOTE | 2019-02-02 10:42 | CR.PDOC ---
General Date of Consultation: Feb 02, 2019 Consultation CONSULTATION REPORT FOR: Dr Pardo REASON FOR CONSULTATION: ESRD, Dysfunctional AVF Vascular Surgery Dr. Degroot HPI: Patient is a 68-year-old male with CKD stage IV who presented to ER 01/29/19 with complaint of dyspnea. Patient reported that he has been short of breath for the past week and has progressively gotten worse. He has taken several respiratory treatments at home without relief. He reported that he had gained 11 pounds over the last several days with possible fullness and abdominal distention. Dyspnea was felt related to fluid overload related to renal dysfunction. Initially treated with IV diuretics but related to deteriorating renal function, nephrology was consulted 02/01/19 with plan to proceed with HD. Vascular Surgery is consulted related to dysfunctional AVF. The pt had HD yesterday and states hematoma developed at AVF. Pt states plan is for HD tomorrow. Pt states still feeling SOB, reports orthopnea, denies PND. Reports edema in LEs, abdominal bloating is less. Denies any fevers, chills, weakness, fatigue, Headache, Chest Pain, cough, palpitations, abdominal pain, N/V/D or changes in bowel habits. PAST MEDICAL HISTORY: ESRD follows with Dr. Ramirez. COPD. Diabetes mellitus. HTN Recurrent DVTs on Warfarin Anemia depression peripheral neuropathy HLD BPH PAST SURGICAL HISTORY: Neck fusion. EGD/colonoscopy. Carpal tunnel surgery. AVF creation 11/01/18. Zane. SOCHX: Resides in: [facility] Marital Status: Employment: disabled Tobacco use: former smoker ETOH: denies FAMHX: DM, sister ovarian Ca ROS: As noted in HPI, otherwise 11pt ROS of systems reviewed and unremarkable. PE: GEN: 68yoM, appears stated age. No acute distress. Alert and oriented x 3. Pleasant, interactive. HEENT: Normocephalic, atraumatic. Conjunctiva without injection. Nose midline. No facial asymmetry. Moist mucous membranes. CHEST: Regular rate and rhythm, +S1, +S2 LUNGS: Insp rales notes bases bilaterally. No wheezes, or rhonchi. Breathing appears symmetric and easy. ABD: Round, soft, non-tender, non-distended. +Bowel sounds throughout. EXT: Pulses 2+ bilaterally dorsalis pedis and radial. lower extremity edema anabella reciated to prox pretib area b/l. SKIN: [place], dry, warm. Capillary refill <2sec. No rashes. AVF RUE with thrill noted, hematoma at access site. NEURO: Alert and oriented x 3. Cranial nerves III-XII are intact. No focal deficits appreciated. A&P: Patient is a 68-year-old male with CKD stage IV who presented to ER 01/29/19 with complaint of dyspnea. Patient reported that he has been short of breath for the past week and has progressively gotten worse. He has taken several respiratory treatments at home without relief. He reported that he had gained 11 pounds over the last several days with possible fullness and abdominal distention. Dyspnea was felt related to fluid overload related to renal dysfunction. Initially treated with IV diuretics but related to deteriorating renal function, nephrology was consulted 02/01/19 with plan to proceed with HD. Vascular Surgery is consulted related to dysfunctional AVF. 1. ESRD. HD mgmt as per Nephrology. AVF noted RUE with thrill, hematoma s/p access 02/01/19. Pt is reviewed and discussed with Dr Degroot, plan is proceed with fistulogram. 2. COPD. Duonebs. 3. Diabetes mellitus. CC diet. SSI. Levemir. BS 148-257. 4. HTN. norvasc. SBP 148-158. 5. Recurrent DVTs on Warfarin. INR 2.09 6. Anemia. CKD/Fe def. Aransep and Venofer as per Nephrology. fe supplement. Hgb 9.9. 7. PN. Cymbalta. 8. Depression. trazodone. 9. HLD. Lipitor. BPH. Flomax. DVT prophylaxis. Pt is on Coumadin. Thank you for your consultation. We will continue to follow along with you. Vital Signs/I&O Vital Signs Date Time Temp Pulse Resp B/P (MAP) Pulse Ox O2 Delivery O2 Flow Rate FiO2 02/02/19 06:00 99.0 93 20 158/64 (95) 98 02/01/19 21:00 Room Air I&O- Last 24 Hours up to 6 AM 02/02/19 05:59 Intake Total 1860 ml Output Total 2100 ml Balance -240 ml Laboratory Data Labs 24H Laboratory Tests 2 02/01/19 11:45: Estimated Mean Plasma Glucose 131H, Hemoglobin A1c 6.2, Hepatitis B Surface Antigen NEGATIVE, Hepatitis B Surface Antibody NEGATIVE, Hepatitis B Core IgG Antibody Negative, Hepatitis B Core IgM Antibody NEGATIVE, Hepatitis C Antibody Index 0.0 02/01/19 14:24: Bedside Glucose (Misc Panel) 212H 02/01/19 16:53: Bedside Glucose (Misc Panel) 257H 02/01/19 20:29: Bedside Glucose (Misc Panel) 148H 02/02/19 05:23: Nucleated Red Blood Cells % (auto) 0.0, Prothrombin Time 23.9H, Prothromb Time International Ratio 2.09, Blood Urea Nitrogen 70H, Creatinine 3.72H, Sodium Level 141, Potassium Level 4.4, Chloride Level 113H, Carbon Dioxide Level 19L, Anion Gap 9, Glomerular Filtration Rate 17.4L, Calcium Level 8.1L, Phosphorus Level 3.6, Magnesium Level 1.6L, Albumin 2.6L 02/02/19 06:03: Parathyroid Hormone (Intact) 194.5H CBC/BMP Laboratory Tests 02/02/19 05:23 Red Blood Count 3.41 L, Mean Corpuscular Volume 90.0, Mean Corpuscular Hemoglobin 29.0, Mean Corpuscular Hemoglobin Concent 32.2, Red Cell Distribution Width 14.4, Anion Gap 9 Allergies Coded Allergies: carbamazepine (Verified Allergy, Severe, ANAPHYLAXIX, 01/29/19) phenobarbital (Verified Allergy, Severe, ANAPHYLAXIS, 01/29/19) phenytoin (Verified Allergy, Severe, ANAPHYLAXIS, 01/29/19) Penicillins (Verified Allergy, Intermediate, ITCHING, 01/29/19) bacitracin (Verified Allergy, Intermediate, FACIAL SWELLING, 01/29/19) latex (Verified Allergy, Intermediate, SEVERE RASH AND HIVES, 02/02/19) lisinopril (Verified Allergy, Intermediate, RASH, 01/29/19) meperidine (Verified Allergy, Intermediate, ITCHING, 01/29/19) neomycin (Verified Allergy, Intermediate, FACIAL SWELLING, 01/29/19) pioglitazone (Verified Allergy, Intermediate, EDEMA, 01/29/19) polymyxin B (Verified Allergy, Intermediate, FACIAL SWELLING, 01/29/19) metformin (Verified Allergy, Mild, RASH, 01/29/19) Aminoglycosides (Verified Allergy, Unknown, 01/29/19) NSAIDS (Non-Steroidal Anti-Inflamma (Verified Allergy, Unknown, 01/29/19) gabapentin (Verified Allergy, Unknown, 01/29/19) pregabalin (Verified Allergy, Unknown, 01/29/19) capsaicin (Verified Adverse Reaction, Intermediate, EXCESSIVE BURNING, 01/29/19) dapsone (Verified Adverse Reaction, Intermediate, ANEMIA, 01/29/19) levofloxacin (Verified Adverse Reaction, Intermediate, HEADACHE, 01/29/19) ropinirole (Verified Adverse Reaction, Intermediate, ELEVATED LIVER ENZYMES, 01/29/19) rosuvastatin (Verified Adverse Reaction, Unknown, HEADACHE, 01/29/19) Home Medications Scheduled Amlodipine Besylate (Amlodipine Besylate) 5 Mg Tablet, 5 MG PO DAILY, #14 Atorvastatin Calcium (Atorvastatin Calcium) 40 Mg Tab, 40 MG PO QPM, (Reported) Bisoprolol Fumarate (Bisoprolol Fumarate) 5 Mg Tablet, 5 MG PO BID, #28 Buprenorphine (Butrans) 20 Mcg/Hr Dis, 20 MCG TD QWEEK, (Reported) APPLIES ON FRIDAYS, PATCH IS CURRENTLY ON. Calcitriol (Calcitriol) 0.25 Mcg Cap, 0.25 MCG PO DAILY, (Reported) Duloxetine Hcl (Cymbalta) 60 Mg Cap, 60 MG PO QHS, (Reported) Epoetin Lopez (Procrit) 20,000 Unit/Ml Inj, 20,000 UNIT INJ QMONTH, (Reported) LAST INJECTION 01/16/19 Ergocalciferol (Vitamin D2) (Drisdol) 50,000 Unit Cap, 50,000 UNIT PO QWEEK, (Reported) WEDNESDAY Ferrous Sulfate (Ferrous Sulfate) 325 Mg Tab, 325 MG PO DAILY, (Reported) Fish Oil (Fish Oil 1000 mg) 1 Cap Cap, 1 CAP PO TID, (Reported) Fluticasone Propion/Salmeterol (Advair Hfa 230-21 Mcg Inhaler) 1 Aer Aer, 1 PUFF INH BID, (Reported) Fluticasone Propionate (Fluticasone Propionate) 50 Mcg/Act Spr, 1 SPRAY NA BID, (Reported) Glucagon,Human Recombinant (Glucagon Emergency Kit) 1 Mg Kit, 1 MG INJ ASDIRECTED, (Reported) Insulin Glargine (Lantus) 1 Units/0.01 Ml Susp, 8 UNITS SC QPM, (Reported) WITH SUPPER Insulin Glargine (Lantus) 1 Units/0.01 Ml Susp, 5 UNITS SC QHS, (Reported) Insulin Human Lispro (Novolog) 100 U/Ml Inj, 7 UNITS SC BID, (Reported) BREAKFAST AND DINNER Insulin Human Lispro (Novolog) 100 U/Ml Inj, 5 UNITS SC DAILY, (Reported) LUNCH Levocetirizine Dihydrochloride (Levocetirizine Dihydrochloride) 5 Mg Tab, 5 MG PO QHS, (Reported) Omeprazole (Omeprazole) 40 Mg Cap, 40 MG PO QPM, (Reported) WITH SUPPER Polyethylene Glycol 3350 (Miralax) 1 Pow Pow, 17 GM PO BID, (Reported) Pramipexole Dihydrochloride (Pramipexole Dihydrochlori) 0.125 Mg Tab, 0.125 MG PO QHS, (Reported) Tamsulosin HCl (Flomax) 0.4 Mg Cap, 0.4 MG PO QHS, (Reported) Torsemide (Torsemide) 20 Mg Tablet, 40 MG PO DAILY, #14 Trazodone HCl (Trazodone HCl) 50 Mg Tab, 50 MG PO QPM, (Reported) Warfarin Sodium (Warfarin Sodium) 5 Mg Tab, 5 MG PO 5XW, (Reported) TAKES ON WEDNESDAY, WEDNESDAY, WEDNESDAY, WEDNESDAY AND WEDNESDAY Warfarin Sodium (Warfarin Sodium) 7.5 Mg Tab, 7.5 MG PO 2XW, (Reported) ONLY SUNDAYS AND WEDNESDAYS AT 1700 Scheduled PRN (Saline Nasal [place]) 0.65 % Spr, 1 SPRAY NARES DAILY PRN for CONGESTION, (Reported) Acetaminophen (Acetaminophen) 500 Mg Tab, 1,000 MG PO Q6H PRN for PAIN, (Reported) Albuterol Sulf (Albuterol Sulfate) 2.5 Mg/3 Ml Nebu, 2.5 MG INH Q4H PRN for SOB/WHEEZING, (Reported) Albuterol Sulfate (Proair Hfa) 108 Mcg/Act Aer, 2 PUFF INH Q4HP PRN for SOB/WHEEZING, (Reported) Hydrocodone/Acetaminophen (Hydrocodone-Acetamin 5-325 mg) 1 Tab Tab, 1 TAB PO Q6H PRN for PAIN, (Reported) Meclizine HCl (Meclizine HCl) 25 Mg Tab, 25 MG PO DAILY PRN for DIZZINESS, (Reported) Hilary Cardenas Feb 02, 2019 10:16
--- NOTE | 2019-02-02 12:10 | IPN ---
DATE OF SERVICE: 02/02/2019 SUBJECTIVE: Patient was seen and examined at the bedside today morning while he was getting ready to get his hemodialysis done. He was dialyzed yesterday. He tolerated the hemodialysis procedure well, 1 liter of fluid was removed. However, there was an issue with needle placement today before dialysis, his needle infiltrated twice so dialysis procedure was postponed for tomorrow. OBJECTIVE: VITAL SIGNS: Temperature is 99.2 degrees Fahrenheit, blood pressure is 149/84, pulse is 88, respiratory rate of 20, saturating 97% on room air. INTAKE AND OUTPUT: Urine output recorded as 1550 mL since overnight. Ultrafiltration with hemodialysis yesterday was 1 liter. Weight in the bed scale is 68.4 kg. PHYSICAL EXAMINATION: GENERAL: The patient is awake, alert and oriented times three. Sitting up in the bed in no apparent distress. HEAD AND NECK EXAM: Extraocular muscles intact. Pupils equally round and reactive to light and accommodation. Mucous membranes are moist. NECK: Supple. Mildly elevated jugular venous distention (JVD). CARDIOVASCULAR: S1, S2. Regular rate. 1+ edema of the bilateral lower extremities. RESPIRATORY: Mildly decreased breath sounds at the bases. Otherwise no active rales or rhonchi. ABDOMEN: Soft, positive bowel sounds, nontender, no organomegaly. MUSCULOSKELETAL: No clubbing or cyanosis. Pulses are 2+. 1+ edema of the bilateral lower extremities. CENTRAL NERVOUS SYSTEM (ACCESS RN): No focal neurological deficit. Power is 5/5 in all extremities. AV access - he had a right upper arm AV fistula with positive thrill and bruit. There is a small hematoma at the access site. LABORATORY REVIEW: Complete blood count (CBC) showed WBC of 13.5, hemoglobin 9.9, platelets of 321. Basic metabolic panel (BMP) showed sodium 141, potassium 4.4, chloride 113, bicarbonate 19, BUN 70, creatinine 3.7, phosphorus 3.6, magnesium 1.6, albumin 2.6, PTH 194. CURRENT INPATIENT MEDICATIONS: The patient's current medications are all reviewed by me. He has been started on Aranesp which he has not received so far during dialysis. One dose of hepatitis B Recombivax 40 microgram IM was ordered today. He was also started on IV Venofer which he has not received so far with dialysis. Sucralfate was stopped yesterday. No other change in the medications today as compared with yesterday. ASSESSMENT AND PLAN: 1. End-stage renal disease. Patient has progressed to end-stage renal disease. He was dialyzed yesterday for 2 hours, he tolerated the procedure well. Because of the AV fistula infiltration he could not get the dialysis done. I have gotten the vascular surgery on board to evaluate his AV fistula. 2. Right upper arm AV fistula malfunction. There was difficulty with assessing his fistula. Vascular surgeon is planning to do the fistulogram. 3. Anemia and end-stage renal disease. Patient was on Epogen as outpatient. He is going to start Aranesp and IV iron during dialysis once we can access his fistula. 4. Hypertension with chronic kidney disease. Continue current dose of amlodipine. Volume management will be done with hemodialysis. 5. Shortness of breath. It is secondary to a combination of metabolic acidosis, renal failure, and fluid overload. Continue the Lasix at this point. Further fluid will be removed with hemodialysis. Chronic obstructive pulmonary artery disease (COPD) management is as mentioned below. 6. History of chronic obstructive pulmonary artery disease (COPD). No active rales or rhonchi. His steroids have been stopped. He can continue the nebulizations as needed. 7. Secondary hyperparathyroidism. PTH level was noted at 194. He is being started on calcitriol 0.25 mcg Wednesday, Wednesday, and Wednesday. 8. Metabolic acidosis. It is secondary to renal failure. Acidosis will improve with further hemodialysis.
[2019-02-02] MEDS: LEVEMIR (INSULIN DETEMIR) 1 UNITS/0.01ML SC SCH ×2 (12:40→21:40)
--- NOTE | 2019-02-02 12:42 | IPNPDOC ---
Subjective Date Seen The patient was seen on 02/02/19. Subjective Chief Complaint/HPI Patient feeling slightly better after dialysis. Scheduled for every fistula General: Reports: Normal Appetite; Denies: Chills, Night Sweats, Fatigue, Malaise Constitutional: Denies: Chills, Fever, Night Sweats Eyes: Denies: Pain, Vision change ENT: Denies: Head Aches, Ear Pain, Dysphagia Skin: Denies: Rash, Lesions, Breakdown Pulmonary: Denies: Dyspnea, Cough Cardiovascular: Denies: Chest Pain, Palpitations, Orthopnea, Paroxysmal Noc. Dyspnea, Lt Headedness Gastrointestinal: Denies: Nausea, Vomiting, Abdominal Pain, Diarrhea, Constipation Genitourinary: Denies: Dysuria, Frequency, Incontinence, Retention Hematologic: Denies: Bruising, Bleeding Excessively Musculoskeletal: Denies: Neck Pain, Back Pain, Joint Pain, Muscle Pain, Spasms Neurological: Denies: Weakness, Numbness, Change in speech, Confusion Psych: Reports: Mood Normal; Denies: Depression, Memory Issues Objective Physical Examination General Exam: Positive: Alert, No Acute Distress Eye Exam: Positive: PERRLA, Conjunctiva & lids normal, EOMI; Negative: Sclera icteric ENT Exam: Positive: Atraumatic, Mucous membr. moist/pink, Pharynx Normal Neck Exam: Positive: Supple; Negative: JVD, thyromegaly Chest Exam: Positive: Other (decreased breath sounds bilaterally with scattered wheezing at bases) Heart Exam: Positive: Rate Normal, Regular Rhythm, Normal S1, Normal S2; Negative: Murmurs, Rubs Telemetry: Positive: No significant arrhythmia Abdomen Exam: Positive: Normal bowel sounds, Soft; Negative: Tenderness, Hepatospenomegaly Male Exam: Positive: Normal Genital Exam Extremity Exam: Positive: Normal pulses; Negative: Clubbing, Cyanosis, Edema Skin Exam: Positive: Nl turgor and temperature; Negative: Rash, Breakdown Neuro Exam: Positive: Normal Gait, Normal Speech, Cranial Nerves 3-12 NL, Reflexes 2+ Psych Exam: Positive: Mental status NL, Mood NL, Oriented x 3 Assessment /Plan Problems (1) COPD with acute exacerbation Status: Acute Problem Text: Change IV steroids to by mouth Continue DuoNeb when necessary Oxygen support as needed Out of bed as tolerated Symptomatic and supportive care Discussed with patient and his at bedside (2) Pleural effusion Status: Acute Problem Text: Patient is already on diuretics Related to a strict I and O's to measure the urine output and keep patient in negative balance O2 support as needed Continue IV Lasix Echocardiogram Monitor renal functions Ambulation recommended DM Accuchecks, sliding scale insulin. hold any home glycemic meds. 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 follow daily INR. CKD Stage 4 Possibly contributing to pleural effusion and fluid status. Will need to continue following up with Nephro as outpatient for HD evaluation. (3) Chronic renal disease Status: Acute Problem Text: Discussed with Dr. hood, patient probably needs a hemodialysis She received 1 session of dialysis He is scheduled for AV graft He'll probably receive further dialysis sessions before his scheduled as an outpatient Plan/VTE VTE Prophylaxis Ordered?: Yes VS, I&O, 24H, Fishbone Vital Signs/I&O Vital Signs Date Time Temp Pulse Resp B/P (MAP) Pulse Ox O2 Delivery O2 Flow Rate FiO2 02/02/19 10:00 99.2 88 20 149/84 (105) 97 02/02/19 08:00 Room Air I&O- Last 24 Hours up to 6 AM 02/02/19 06:00 Intake Total 1920 ml Output Total 2600 ml Balance -680 ml Laboratory Data 24H LABS Laboratory Tests 2 02/01/19 14:24: Bedside Glucose (Misc Panel) 212H 02/01/19 16:53: Bedside Glucose (Misc Panel) 257H 02/01/19 20:29: Bedside Glucose (Misc Panel) 148H 02/02/19 05:23: Nucleated Red Blood Cells % (auto) 0.0, Prothrombin Time 23.9H, Prothromb Time International Ratio 2.09, Blood Urea Nitrogen 70H, Creatinine 3.72H, Sodium Level 141, Potassium Level 4.4, Chloride Level 113H, Carbon Dioxide Level 19L, Anion Gap 9, Glomerular Filtration Rate 17.4L, Calcium Level 8.1L, Phosphorus Level 3.6, Magnesium Level 1.6L, Albumin 2.6L 02/02/19 06:03: Parathyroid Hormone (Intact) 194.5H 02/02/19 12:06: Bedside Glucose (Misc Panel) 143H CBC/BMP Laboratory Tests 02/02/19 05:23 Red Blood Count 3.41 L, Mean Corpuscular Volume 90.0, Mean Corpuscular Hemoglobin 29.0, Mean Corpuscular Hemoglobin Concent 32.2, Red Cell Distribution Width 14.4, Anion Gap 9 GA GIL MD Feb 02, 2019 12:42
[2019-02-02] MEDS ORDERED: diphenhydrAMINE INJ 50MG/ML VIAL (J1200) As Ordered ONE (16:50)
[2019-02-02] MEDS ORDERED: LIDOCAINE 2% MDV 20 ML VIAL As Ordered ONE (16:51)
[2019-02-02] MEDS ORDERED: MIDAZOLAM INJ 2 MG/2 ML VIAL (J2250) As Ordered ONE (16:51)
[2019-02-02] MEDS ORDERED: BUPIVACAINE HCL 0.5% 10 ML VIAL As Ordered ONE (16:51)
[2019-02-02] MEDS ORDERED: ISOVUE-300 61% 100ML VIAL (Q9967) As Ordered ONE (16:52)
[2019-02-02] MEDS ORDERED: fentaNYL 100 MCG/2 ML INJECTION (J3010) As Ordered ONE (16:52)
[2019-02-02] MEDS: WARFARIN SOD 5 MG TAB PO SCH (18:37)
[2019-02-02] MEDS: OMEPRAZOLE 20 MG CAP PO SCH (18:37)
[2019-02-02] MEDS: DULoxetine 30 MG CAP (CYMBALTA) PO SCH (21:39)
[2019-02-02] MEDS: ATORVASTATIN 20 MG TAB PO SCH (21:39)
[2019-02-02] MEDS: PRAMIPEXOLE (MIRAPEX) 0.125 MG TAB PO SCH (21:40)
[2019-02-02] MEDS: TAMSULOSIN 0.4 MG CAP PO SCH (21:40)
[2019-02-02] MEDS: traZODone 50 MG TAB PO SCH (21:40)
[2019-02-03] VITALS (7 sets, daily range): BP systolic 132–164; BP diastolic 58–77; O2SAT 97–99
[2019-02-03] MEDS: FERROUS SULFATE 325MG TAB PO SCH (05:53)
[2019-02-03] MEDS: OMEGA-3 1000MG CAPSULE PO SCH ×3 (05:54→21:02)
[2019-02-03] MEDS: amLODIPine 10 MG TAB PO SCH (05:54)
[2019-02-03 06:20] LABS: INR 2.29; PROTHROMBIN TIME 25.7 SECONDS (12.1-14.4)
[2019-02-03] MEDS: FLUTICASONE PROP 0.05% NASAL SPRAY 16 GM (FLONASE) SCH ×2 (06:31→21:02)
[2019-02-03] MEDS: TRIAMCINOLONE ACET 0.1% OINTMENT 80 GM TOP SCH ×2 (06:31→21:02)
[2019-02-03] MEDS: HumaLOG INSULIN (NovoLOG) PER UNIT SC SCH ×4 (07:30→21:00)
[2019-02-03] MEDS ORDERED: BUPRENORPHINE 20 MCG/HR TD SCH (09:00)
[2019-02-03] MEDS ORDERED: HEPARIN 1,000 UNITS/ML 10ML VIAL (FOR RADIOLOGY& DIALYSIS ONLY) IV ONE (09:45)
[2019-02-03] MEDS ORDERED: LIDOCAINE 1% SDV 5 ML VIAL SQ ONE (09:45)
[2019-02-03 09:58] LABS: ALBUMIN 2.5 GM/DL (3.2-5.2); BASO % 0.3 % (0.0-1.0); CALCIUM LEVEL 7.9 MG/DL (8.8-10.2); CREATININE FOR GFR 3.52 MG/DL (0.70-1.30); EOS # 0.2 10^3/uL (0.0-0.50); EOS % 1.9 % (0.0-3.0); GLOMERULAR FILTRATION RATE 18.6 (>49); HEMATOCRIT 31.2 % (42.0-52.0); HEMOGLOBIN 9.9 g/dl (13.5-17.5); LYMPH # 2.4 10^3/uL (1.5-4.5); LYMPH % 25.3 % (24.0-44.0); MEAN CORPUSCULAR HEMOGLOBIN 29.1 pg (27.0-33.0); MEAN CORPUSCULAR HGB CONC 31.7 g/dl (32.0-36.5); MEAN CORPUSCULAR VOLUME 91.8 fl (80.0-96.0); MONO # 0.9 10^3/uL (0.0-0.8); MONO % 9.6 % (0.0-5.0); NEUTROPHILS % 62.5 % (36.0-66.0); PHOSPHORUS LEVEL 3.9 MG/DL (2.5-4.9); PLATELET COUNT, AUTOMATED 275 10^3/uL (150-450); POTASSIUM SERUM 4.3 MEQ/L (3.5-5.1); WHITE BLOOD COUNT 9.6 10^3/uL (4.0-10.0)
--- NOTE | 2019-02-03 11:51 | IPN ---
DATE OF SERVICE: 02/03/2019 SUBJECTIVE: Patient was seen and examined at the bedside today morning during hemodialysis procedure. Today we were successful in accessing the fistula. The patient got the fistulogram of the right upper arm AV fistula done by vascular surgery as well and there was no obstruction or stenosis found in the fistula. The patient is tolerated the dialysis and fluid removal and he reports his shortness of breath is improving. OBJECTIVE: VITAL SIGNS: Temperature is 98.4 degrees Fahrenheit, blood pressure is 164/58, pulse is 103, respiratory rate of 20, saturating 99% on room air. INTAKE AND OUTPUT: Urine output recorded as 3.8 liters yesterday, 1.4 liters so far today since overnight. Weight on the bed scale is 83.9 kg. PHYSICAL EXAMINATION: GENERAL: The patient is awake, alert and oriented times three, lying in bed getting hemodialysis done. No apparent distress. HEAD AND NECK EXAM: Extraocular muscles intact. Pupils equally round and reactive to light. Mucous membranes are moist. NECK: Supple. There is no jugular venous distention (JVD). CARDIOVASCULAR: S1, S2. Regular rate. 1+ edema of the bilateral lower extremities. RESPIRATORY: Mildly decreased breath sounds at the bases. Mild expiratory rhonchi at the bases. ABDOMEN: Soft, positive bowel sounds, nontender, no organomegaly. MUSCULOSKELETAL: No clubbing or cyanosis. Pulses are 2+. CENTRAL NERVOUS SYSTEM (DEBURRER): No focal neurological deficit. Power is 5/5 in all extremities. AV ACCESS : He has a right upper arm AV fistula which is being used for dialysis. LABORATORY REVIEW: CBC showed a WBC of 9.6, hemoglobin 9.9, platelets are 275. BMP showed sodium 142, potassium 4.3, chloride 116, bicarbonate 21, BUN 71, creatinine 3.5, phosphorus 3.9. CURRENT INPATIENT MEDICATIONS: The patient's medications are all reviewed by me. He continues to be on IV Lasix 60 mg every 12 hours. I am going to change the diuretics to oral diuretics now. No other change in the medications today as compared with yesterday. ASSESSMENT AND PLAN: 1. End-stage renal disease. Patient was dialyzed for the first time two days ago. He is getting his second session of hemodialysis. I will try to remove at least 2 kg of fluid to optimize his volume status. AV fistula is working better today. 2. Anemia and end-stage renal disease. He has been started on IV iron and IV Aranesp with dialysis. Hemoglobin level is slowly improving to target of 10-11. 3. Hypertension with chronic kidney disease. Continue current dose of amlodipine. No need of escalation of regimen. Improvement of volume status would improve blood pressure as well. 4. History of chronic obstructive pulmonary disease (COPD). Continue the nebulizations. Steroids have been stopped. 5. Secondary hyperparathyroidism. Continue current dose of calcitriol Wednesday, Wednesday, and Wednesday. DISPOSITION: Patient is awaiting placement at the [facility] [place] in [place].
[2019-02-03] MEDS: CALCITRIOL 0.25 MCG CAP (S0169) PO SCH (12:34)
[2019-02-03] MEDS: ACETAMINOPHEN 500 MG TAB PO PRN (12:35)
[2019-02-03] MEDS: LEVEMIR (INSULIN DETEMIR) 1 UNITS/0.01ML SC SCH ×2 (12:37→21:03)
[2019-02-03] MEDS: TORSEMIDE 20 MG TAB PO SCH (12:40)
--- NOTE | 2019-02-03 12:47 | IPNPDOC ---
Subjective Date Seen The patient was seen on 02/03/19. Subjective Chief Complaint/HPI Patient offers no new complaints. Previous old AV fistula is functioning as per vascular surgeon General: Reports: Normal Appetite; Denies: Chills, Night Sweats, Fatigue, Malaise Constitutional: Denies: Chills, Fever, Night Sweats Eyes: Denies: Pain, Vision change ENT: Denies: Head Aches, Ear Pain, Dysphagia Skin: Denies: Rash, Lesions, Breakdown Pulmonary: Denies: Dyspnea, Cough Cardiovascular: Denies: Chest Pain, Palpitations, Orthopnea, Paroxysmal Noc. Dyspnea, Lt Headedness Gastrointestinal: Denies: Nausea, Vomiting, Abdominal Pain, Diarrhea, Constipation Genitourinary: Denies: Dysuria, Frequency, Incontinence, Retention Hematologic: Denies: Bruising, Bleeding Excessively Musculoskeletal: Denies: Neck Pain, Back Pain, Joint Pain, Muscle Pain, Spasms Neurological: Denies: Weakness, Numbness, Change in speech, Confusion Psych: Reports: Mood Normal; Denies: Depression, Memory Issues Objective Physical Examination General Exam: Positive: Alert, Cooperative, No Acute Distress, Mild Distress, Moderate Distress, Severe Distress, Other Eye Exam: Positive: PERRLA, Conjunctiva & lids normal, EOMI; Negative: Sclera icteric ENT Exam: Positive: Atraumatic, Mucous membr. moist/pink, Pharynx Normal Neck Exam: Positive: Supple; Negative: JVD, thyromegaly Chest Exam: Positive: Other (clear to A&P, no wheezing or rhonchi) Heart Exam: Positive: Rate Normal, Regular Rhythm, Normal S1, Normal S2; Negative: Murmurs, Rubs Telemetry: Positive: No significant arrhythmia Abdomen Exam: Positive: Normal bowel sounds, Soft; Negative: Tenderness, Hepatospenomegaly Male Exam: Positive: Normal Genital Exam Extremity Exam: Positive: Normal pulses; Negative: Clubbing, Cyanosis, Edema Skin Exam: Positive: Nl turgor and temperature; Negative: Rash, Breakdown Neuro Exam: Positive: Normal Gait, Normal Speech, Cranial Nerves 3-12 NL, Reflexes 2+ Psych Exam: Positive: Mental status NL, Mood NL, Oriented x 3 Assessment /Plan Problems (1) COPD with acute exacerbation Status: Acute Problem Text: Change IV steroids to by mouth Continue DuoNeb when necessary Oxygen support as needed Out of bed as tolerated Symptomatic and supportive care Discussed with patient and his at bedside (2) Pleural effusion Status: Acute Problem Text: Patient is already on diuretics Related to a strict I and O's to measure the urine output and keep patient in negative balance O2 support as needed Continue IV Lasix Echocardiogram Monitor renal functions Ambulation recommended (3) Chronic renal disease Status: Acute Problem Text: Discussed with Dr. hood, patient probably needs a hemodialysis AV graft is functioning He is getting second session of hemodialysis today We will try to get outpatient dialysis appointment before he is discharged (4) Diabetes type 2, uncontrolled Status: Chronic Response to Treatment: Stable Problem Text: FSBS with sliding scale home meds Plan/VTE VTE Prophylaxis Ordered?: Yes VS, I&O, 24H, Fishbone Vital Signs/I&O Vital Signs Date Time Temp Pulse Resp B/P (MAP) Pulse Ox O2 Delivery O2 Flow Rate FiO2 02/03/19 06:00 98.4 103 20 164/58 (93) 99 02/02/19 22:41 Room Air I&O- Last 24 Hours up to 6 AM 02/03/19 06:00 Intake Total 720 ml Output Total 4050 ml Balance -3330 ml Laboratory Data 24H LABS Laboratory Tests 2 02/02/19 16:41: Bedside Glucose (Misc Panel) 212H 02/02/19 20:51: Bedside Glucose (Misc Panel) 86 02/02/19 21:38: Bedside Glucose (Misc Panel) 120H 02/03/19 05:34: Prothrombin Time 25.7H, Prothromb Time International Ratio 2.29 02/03/19 06:18: Bedside Glucose (Misc Panel) 110 02/03/19 08:43: Immature Granulocyte % (Auto) 0.4, White Blood Count 9.6, Red Blood Count 3.40L, Hemoglobin 9.9L, Hematocrit 31.2L, Mean Corpuscular Volume 91.8, Mean Corpusc ular Hemoglobin 29.1, Mean Corpuscular Hemoglobin Concent 31.7L, Red Cell Distribution Width 14.5, Platelet Count 275, Neutrophils (%) (Auto) 62.5, Lymphocytes (%) (Auto) 25.3, Monocytes (%) (Auto) 9.6H, Eosinophils (%) (Auto) 1.9, Basophils (%) (Auto) 0.3, Neutrophils # (Auto) 6.0, Lymphocytes # (Auto) 2.4, Monocytes # (Auto) 0.9H, Eosinophils # (Auto) 0.2, Basophils # (Auto) 0.0, Nucleated Red Blood Cells % (auto) 0.0, Blood Urea Nitrogen 71H, Creatinine 3.52H, Sodium Level 142, Potassium Level 4.3, Chloride Level 116H, Carbon Dioxide Level 21, Anion Gap 5L, Glomerular Filtration Rate 18.6L, Calcium Level 7.9L, Phosphorus Level 3.9, Albumin 2.5L 02/03/19 12:07: Bedside Glucose (Misc Panel) 145H CBC/BMP Laboratory Tests 02/03/19 08:43 Red Blood Count 3.40 L, Mean Corpuscular Volume 91.8, Mean Corpuscular Hemoglobin 29.1, Mean Corpuscular Hemoglobin Concent 31.7 L, Red Cell Distribution Width 14.5, Neutrophils (%) (Auto) 62.5, Lymphocytes (%) (Auto) 25.3, Monocytes (%) (Auto) 9.6 H, Eosinophils (%) (Auto) 1.9, Basophils (%) (Auto) 0.3, Neutrophils # (Auto) 6.0, Lymphocytes # (Auto) 2.4, Monocytes # (Auto) 0.9 H, Eosinophils # (Auto) 0.2, Basophils # (Auto) 0.0, Anion Gap 5 L GA GIL MD Feb 03, 2019 12:47
[2019-02-03] MEDS ORDERED: METOPROLOL 5 MG/5 ML VIAL IV STA (14:08)
[2019-02-03] MEDS ORDERED: METOPROLOL SUCC *XL* 25MG TAB (TopROL *XL*) PO ONE (14:30)
[2019-02-03] MEDS: WARFARIN SOD 5 MG TAB PO SCH (16:55)
[2019-02-03] MEDS: MIRALAX *UNIT DOSE* 17GM PACKET PO PRN (16:56)
[2019-02-03] MEDS: OMEPRAZOLE 20 MG CAP PO SCH (16:56)
--- NOTE | 2019-02-03 17:03 | ECGEPIP ---
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 Rhythm change with repolarization abnormalities from 01/29/19. Clinical correlation advised. Electronically Signed On 02-03-2019 17:03:37 EDT by Crescencio Abel
[2019-02-03] MEDS: ONDANSETRON 4 MG TAB (S0181) PO PRN (20:25)
[2019-02-03] MEDS: PRAMIPEXOLE (MIRAPEX) 0.125 MG TAB PO SCH (21:02)
[2019-02-03] MEDS: traZODone 50 MG TAB PO SCH (21:02)
[2019-02-03] MEDS: TAMSULOSIN 0.4 MG CAP PO SCH (21:02)
[2019-02-03] MEDS: DULoxetine 30 MG CAP (CYMBALTA) PO SCH (21:02)
[2019-02-03] MEDS: ATORVASTATIN 20 MG TAB PO SCH (21:03)
[2019-02-04] VITALS (8 sets, daily range): BP systolic 134–152; BP diastolic 50–82; O2SAT 98–99
[2019-02-04 07:04] LABS: INR 1.83; PROTHROMBIN TIME 21.5 SECONDS (12.1-14.4)
[2019-02-04] MEDS: TORSEMIDE 20 MG TAB PO SCH (08:27)
[2019-02-04] MEDS: FERROUS SULFATE 325MG TAB PO SCH (08:27)
[2019-02-04] MEDS: MIRALAX *UNIT DOSE* 17GM PACKET PO PRN (08:27)
[2019-02-04] MEDS: OMEGA-3 1000MG CAPSULE PO SCH ×3 (08:27→20:12)
[2019-02-04] MEDS: TRIAMCINOLONE ACET 0.1% OINTMENT 80 GM TOP SCH ×2 (08:28→20:12)
[2019-02-04] MEDS: FLUTICASONE PROP 0.05% NASAL SPRAY 16 GM (FLONASE) SCH ×2 (08:28→20:13)
[2019-02-04] MEDS: amLODIPine 10 MG TAB PO SCH (08:28)
[2019-02-04] MEDS: HumaLOG INSULIN (NovoLOG) PER UNIT SC SCH ×4 (08:28→20:12)
[2019-02-04] MEDS: LEVEMIR (INSULIN DETEMIR) 1 UNITS/0.01ML SC SCH ×2 (12:20→20:12)
--- NOTE | 2019-02-04 13:27 | IPNPDOC ---
Subjective Date Seen The patient was seen on 02/04/19. Subjective Chief Complaint/HPI Patient is comfortable in no apparent distress. Head HD done yesterday General: Reports: Normal Appetite; Denies: Chills, Night Sweats, Fatigue, Malaise Constitutional: Denies: Chills, Fever, Night Sweats Eyes: Denies: Pain, Vision change ENT: Denies: Head Aches, Ear Pain, Dysphagia Skin: Denies: Rash, Lesions, Breakdown Pulmonary: Denies: Dyspnea, Cough Cardiovascular: Denies: Chest Pain, Palpitations, Orthopnea, Paroxysmal Noc. Dyspnea, Lt Headedness Gastrointestinal: Denies: Nausea, Vomiting, Abdominal Pain, Diarrhea, Constipation Genitourinary: Denies: Dysuria, Frequency, Incontinence, Retention Hematologic: Denies: Bruising, Bleeding Excessively Musculoskeletal: Denies: Neck Pain, Back Pain, Joint Pain, Muscle Pain, Spasms Neurological: Denies: Weakness, Numbness, Change in speech, Confusion Psych: Reports: Mood Normal; Denies: Depression, Memory Issues Objective Physical Examination General Exam: Positive: Alert, Cooperative, No Acute Distress, Mild Distress, Moderate Distress, Severe Distress, Other Eye Exam: Positive: PERRLA, Conjunctiva & lids normal, EOMI; Negative: Sclera icteric ENT Exam: Positive: Atraumatic, Mucous membr. moist/pink, Pharynx Normal Neck Exam: Positive: Supple; Negative: JVD, thyromegaly Chest Exam: Positive: Other (clear to A&P, no wheezing or rhonchi) Heart Exam: Positive: Rate Normal, Regular Rhythm, Normal S1, Normal S2; Negative: Murmurs, Rubs Telemetry: Positive: No significant arrhythmia Abdomen Exam: Positive: Normal bowel sounds, Soft; Negative: Tenderness, Hepatospenomegaly Male Exam: Positive: Normal Genital Exam Extremity Exam: Positive: Normal pulses; Negative: Clubbing, Cyanosis, Edema Skin Exam: Positive: Nl turgor and temperature; Negative: Rash, Breakdown Neuro Exam: Positive: Normal Gait, Normal Speech, Cranial Nerves 3-12 NL, Reflexes 2+ Psych Exam: Positive: Mental status NL, Mood NL, Oriented x 3 Assessment /Plan Problems (1) COPD with acute exacerbation Status: Acute Problem Text: Change IV steroids to by mouth tapering down slowly Continue DuoNeb when necessary Oxygen support as needed Out of bed as tolerated Symptomatic and supportive care Discussed with patient and his at bedside (2) Pleural effusion Status: Acute Problem Text: Patient is already on diuretics Related to a strict I and O's to measure the urine output and keep patient in negative balance O2 support as needed Off IV Lasix Echocardiogram: Mildly dilated left ventricle with normal wall thickness and hyperkinetic wall motion. Moderately dilated left atrium. Elevated estimated mean left atrial pressure. Normal right ventricular size and motion with Doppler evidence of at least moderate pulmonary hypertension. Slightly dilated right atrium and inferior vena cava upper limits of normal with reduced respiratory collapse in keeping with an elevated central venous pressure. Mild aortic valvular sclerosis without functional abnormality. Normal aortic root size. Mild thickening of the mitral annulus and leaflet edges with adequate leaflet excursion and no posterior systolic buckling but moderately severe mitral insufficiency. Normal appearing tricuspid valve with mild insufficiency. No apparent intracardiac mass or pericardial effusion. In light of the above test findings, it may be prudent to consider a transesophageal echocardiogram to further define mitral valvular structure and the degree of mitral insufficiency. Monitor renal functions Ambulation recommended (3) Chronic renal disease Status: Acute Problem Text: Discussed with Dr. hood, patient probably needs a hemodialysis AV graft is functioning He got second session of hemodialysis yesterday We will try to get outpatient dialysis appointment before he is discharged (4) Diabetes type 2, uncontrolled Status: Chronic Response to Treatment: Stable Problem Text: FSBS with sliding scale home meds Plan/VTE VTE Prophylaxis Ordered?: Yes VS, I&O, 24H, Fishbone Vital Signs/I&O Vital Signs Date Time Temp Pulse Resp B/P (MAP) Pulse Ox O2 Delivery O2 Flow Rate FiO2 02/04/19 10:00 97.8 96 16 145/55 (85) 98 02/04/19 09:00 Room Air I&O- Last 24 Hours up to 6 AM 02/04/19 06:00 Intake Total 840 ml Output Total 3525 ml Balance -2685 ml Laboratory Data 24H LABS Laboratory Tests 2 02/03/19 16:29: Bedside Glucose (Misc Panel) 204H 02/03/19 19:35: Bedside Glucose (Misc Panel) 104 02/04/19 05:59: Prothrombin Time 21.5H, Prothromb Time International Ratio 1.83 02/04/19 06:22: Bedside Glucose (Misc Panel) 109 02/04/19 11:52: Bedside Glucose (Misc Panel) Tameka GA GIL MD Feb 04, 2019 13:27
--- NOTE | 2019-02-04 14:29 | IPN ---
DATE: 02/04/2019 Mr. Castillo is seen this morning on his bedside. He is sitting in the chair and in good spirits. He is feeling much better now and his dyspnea has improved. He reports that he has been ambulating in the hallway. He denies any nausea or vomiting. He underwent hemodialysis yesterday which he tolerated well. PHYSICAL EXAMINATION: Temperature 97.8 degrees Fahrenheit, heart rate 96 per minute and respiratory rate 16 per minute. Blood pressure 145/55 mmHg and oxygen saturation 98% on room air. Intake and output records from yesterday show a total negative fluid balance of 3.7 liters. Two liters were removed with dialysis and 2.6 liters with urine output. His head is atraumatic. Neck is supple and JVD is only mildly elevated. There is no oral thrush or ulcers. Pupils equal and reactive to light and sclera is anicteric. Heart: Sounds are somewhat tachycardiac and without a pericardial friction rub. Lungs: Have slightly diminished breath sounds but no wheezing or rales. Abdomen: Soft, nontender and bowel sounds are present. Extremities: Have no cyanosis or clubbing. Right arm AV fistula is patent. He has large area of ecchymosis on the right arm due to infiltration from his AV fistula. He also has left arm ecchymosis due to IV access. Neurologically he is awake, alert and oriented times three. Today's labs only included a PT INR. His INR was 1.83. PROBLEMS: 1. End-stage renal disease. The patient has initiated dialysis during this admission. He already had two dialysis treatments and will need to get an outpatient chair schedule. We will ask the patient's family services to work on it next week. At this point there is no emergent need for dialysis today and we will continue to watch him closely. 2. Congestive heart failure. Volume status has improved with aggressive fluid removal. At this point we will watch him over the weekend and there is no emergent need for dialysis. 3. Anemia. The patient is receiving Aranesp 100 mcg once a week and oral iron supplement which will be continued. CBC will be checked again tomorrow. He is also going to receive intravenous iron 100 mg after each dialysis for a total of 10 doses. 4. Hypertension. Blood pressure is very well controlled on current antihypertensive meds and no changes are being made today. 5. COPD. The patient is doing much better and his symptoms have improved. Mostly his COPD was worsened due to volume overload. Now his volume status has corrected. 6. Metabolic acidosis. This was related to end-stage renal disease and it has also improved now with dialysis treatment. He is not on sodium bicarbonate supplement anymore.
[2019-02-04] MEDS: ONDANSETRON 4 MG TAB (S0181) PO PRN (15:19)
[2019-02-04] MEDS: WARFARIN SOD 5 MG TAB PO SCH (17:28)
[2019-02-04] MEDS: OMEPRAZOLE 20 MG CAP PO SCH (17:28)
[2019-02-04] MEDS: MIRALAX *UNIT DOSE* 17GM PACKET PO SCH (20:11)
[2019-02-04] MEDS: traZODone 50 MG TAB PO SCH (20:12)
[2019-02-04] MEDS: PRAMIPEXOLE (MIRAPEX) 0.125 MG TAB PO SCH (20:12)
[2019-02-04] MEDS: DULoxetine 30 MG CAP (CYMBALTA) PO SCH (20:12)
[2019-02-04] MEDS: TAMSULOSIN 0.4 MG CAP PO SCH (20:12)
[2019-02-04] MEDS: ATORVASTATIN 20 MG TAB PO SCH (20:12)
[2019-02-05] VITALS (8 sets, daily range): BP systolic 132–158; BP diastolic 58–78; O2SAT 96–97
[2019-02-05 06:33] LABS: HEMATOCRIT 31.2 % (42.0-52.0); HEMOGLOBIN 9.9 g/dl (13.5-17.5); MEAN CORPUSCULAR HEMOGLOBIN 29.1 pg (27.0-33.0); MEAN CORPUSCULAR HGB CONC 31.7 g/dl (32.0-36.5); MEAN CORPUSCULAR VOLUME 91.8 fl (80.0-96.0); PLATELET COUNT, AUTOMATED 283 10^3/uL (150-450); WHITE BLOOD COUNT 9.9 10^3/uL (4.0-10.0)
[2019-02-05 06:42] LABS: INR 1.94; PROTHROMBIN TIME 22.5 SECONDS (12.1-14.4)
[2019-02-05 06:59] LABS: ALBUMIN 2.3 GM/DL (3.2-5.2); CALCIUM LEVEL 7.6 MG/DL (8.8-10.2); CREATININE FOR GFR 3.17 MG/DL (0.70-1.30); PHOSPHORUS LEVEL 3.9 MG/DL (2.5-4.9); POTASSIUM SERUM 4.3 MEQ/L (3.5-5.1)
[2019-02-05] MEDS: HumaLOG INSULIN (NovoLOG) PER UNIT SC SCH ×4 (07:22→20:43)
[2019-02-05] MEDS: OMEGA-3 1000MG CAPSULE PO SCH ×3 (08:09→20:42)
[2019-02-05] MEDS: TORSEMIDE 20 MG TAB PO SCH (08:09)
[2019-02-05] MEDS: FERROUS SULFATE 325MG TAB PO SCH (08:09)
[2019-02-05] MEDS: TRIAMCINOLONE ACET 0.1% OINTMENT 80 GM TOP SCH ×2 (08:10→20:43)
[2019-02-05] MEDS: FLUTICASONE PROP 0.05% NASAL SPRAY 16 GM (FLONASE) SCH ×2 (08:10→20:43)
[2019-02-05] MEDS: MIRALAX *UNIT DOSE* 17GM PACKET PO SCH ×2 (08:10→20:42)
[2019-02-05] MEDS: amLODIPine 10 MG TAB PO SCH (08:10)
--- NOTE | 2019-02-05 11:49 | IPNPDOC ---
Subjective Date Seen The patient was seen on 02/05/19. Subjective Chief Complaint/HPI Shortness of breath, which has resolved now. Patient is completely asymptomatic at the present Events since last encounter Patient is comfortable in no distress. No more shortness of breath, scheduled for third hemodialysis session tomorrow and possibly discharge home once he gets the chair for hemodialysis unit as an outpatient General: Reports: Normal Appetite; Denies: Chills, Night Sweats, Fatigue, Malaise Constitutional: Denies: Chills, Fever, Night Sweats Eyes: Denies: Pain, Vision change ENT: Denies: Head Aches, Ear Pain, Dysphagia Skin: Denies: Rash, Lesions, Breakdown Pulmonary: Denies: Dyspnea, Cough Cardiovascular: Denies: Chest Pain, Palpitations, Orthopnea, Paroxysmal Noc. Dyspnea, Lt Headedness Gastrointestinal: Denies: Nausea, Vomiting, Abdominal Pain, Diarrhea, Constipation Genitourinary: Denies: Dysuria, Frequency, Incontinence, Retention Hematologic: Denies: Bruising, Bleeding Excessively Musculoskeletal: Denies: Neck Pain, Back Pain, Joint Pain, Muscle Pain, Spasms Neurological: Denies: Weakness, Numbness, Change in speech, Confusion Psych: Reports: Mood Normal; Denies: Depression, Memory Issues Objective Physical Examination General Exam: Positive: Alert, Cooperative, No Acute Distress, Mild Distress, Moderate Distress, Severe Distress, Other Eye Exam: Positive: PERRLA, Conjunctiva & lids normal, EOMI; Negative: Sclera icteric ENT Exam: Positive: Atraumatic, Mucous membr. moist/pink, Pharynx Normal Neck Exam: Positive: Supple; Negative: JVD, thyromegaly Chest Exam: Positive: Other (clear to A&P, no wheezing or rhonchi) Heart Exam: Positive: Rate Normal, Regular Rhythm, Normal S1, Normal S2; Negative: Murmurs, Rubs Telemetry: Positive: No significant arrhythmia Abdomen Exam: Positive: Normal bowel sounds, Soft; Negative: Tenderness, Hepatospenomegaly Male Exam: Positive: Normal Genital Exam Extremity Exam: Positive: Normal pulses; Negative: Clubbing, Cyanosis, Edema Skin Exam: Positive: Nl turgor and temperature; Negative: Rash, Breakdown Neuro Exam: Positive: Normal Gait, Normal Speech, Cranial Nerves 3-12 NL, Reflexes 2+ Psych Exam: Positive: Mental status NL, Mood NL, Oriented x 3 Assessment /Plan Problems (1) COPD with acute exacerbation Status: Acute Problem Text: Change IV steroids to by mouth tapering down slowly Continue DuoNeb when necessary Oxygen support as needed Out of bed as tolerated Symptomatic and supportive care Discussed with patient and his at bedside (2) Pleural effusion Status: Acute Problem Text: Patient is already on diuretics Related to a strict I and O's to measure the urine output and keep patient in negative balance O2 support as needed Off IV Lasix Echocardiogram: Mildly dilated left ventricle with normal wall thickness and hyperkinetic wall motion. Moderately dilated left atrium. Elevated estimated mean left atrial pressure. Normal right ventricular size and motion with Doppler evidence of at least moderate pulmonary hypertension. Slightly dilated right atrium and inferior vena cava upper limits of normal with reduced respiratory collapse in keeping with an elevated central venous pressure. Mild aortic valvular sclerosis without functional abnormality. Normal aortic root size. Mild thickening of the mitral annulus and leaflet edges with adequate leaflet excursion and no posterior systolic buckling but moderately severe mitral insufficiency. Normal appearing tricuspid valve with mild insufficiency. No apparent intracardiac mass or pericardial effusion. In light of the above test findings, it may be prudent to consider a transesophageal echocardiogram to further define mitral valvular structure and the degree of mitral insufficiency. Patient is completely asymptomatic at the present time Ambulation and out of bed and been counseled (3) Chronic renal disease Status: Acute Problem Text: Discussed with Dr. hood, patient probably needs a hemodialysis AV graft is functioning Patient patient will receive 3rd session of hemodialysis tomorrow And tomorrow. If he gets placement and outpatient HD unit, then he can be safely discharged home (4) Diabetes type 2, uncontrolled Status: Chronic Response to Treatment: Stable Problem Text: FSBS with sliding scale home meds Plan/VTE VTE Prophylaxis Ordered?: Yes VS, I&O, 24H, Fishbone Vital Signs/I&O Vital Signs Date Time Temp Pulse Resp B/P (MAP) Pulse Ox O2 Delivery O2 Flow Rate FiO2 02/05/19 10:00 98.8 97 16 136/67 (90) 99 02/05/19 08:00 Room Air I&O- Last 24 Hours up to 6 AM 02/05/19 06:00 Intake Total 1548 ml Output Total 2300 ml Balance -752 ml Laboratory Data 24H LABS Laboratory Tests 2 02/04/19 11:52: Bedside Glucose (Misc Panel) 267H 02/04/19 16:32: Bedside Glucose (Misc Panel) 131H 02/04/19 19:40: Bedside Glucose (Misc Panel) 214H 02/05/19 05:42: Nucleated Red Blood Cells % (auto) 0.0, Prothrombin Time 22.5H, Prothromb Time International Ratio 1.94, Blood Urea Nitrogen 52H, Creatinine 3.17H, Sodium Level 141, Potassium Level 4.3, Chloride Level 110H, Carbon Dioxide Level 24, Anion Gap 7L, Glomerular Filtration Rate 21.0L, Calcium Level 7.6L, Phosphorus Level 3.9, Albumin 2.3L CBC/BMP Laboratory Tests 02/05/19 05:42 Red Blood Count 3.40 L, Mean Corpuscular Volume 91.8, Mean Corpuscular Hemoglobin 29.1, Mean Corpuscular Hemoglobin Concent 31.7 L, Red Cell Distribution Width 14.2, Anion Gap 7 L GA GIL MD Feb 05, 2019 11:49
[2019-02-05] MEDS: LEVEMIR (INSULIN DETEMIR) 1 UNITS/0.01ML SC SCH ×2 (12:35→20:42)
--- NOTE | 2019-02-05 14:07 | IPN ---
DATE: 02/05/2019 Mr. Castillo is seen this morning on his bedside. He is sitting in the chair at the time of my visit. He is feeling well and denies any complaints. His dyspnea has improved, though he still has mild leg edema. He is ambulating without any problem. He denies any nausea or vomiting. He did have two dialysis treatments last week. His right arm AV fistula has been working and he did have an angiogram done last week which showed a widely patent fistula. On physical examination, temperature 98.8 degrees Fahrenheit, heart rate 97 per minute and respiratory rate 16 per minute. Blood pressure 136/67 mmHg and oxygen saturation 99% on room air. Head is atraumatic. Neck is supple and without jugular venous distention (JVD) or thyroid enlargement. There is no oral thrush or ulcers. Heart sounds are tachycardiac and somewhat irregular. There is no pericardial friction rub. Lungs have minimal expiratory wheezing. Abdomen: Soft and nontender. Bowel sounds are normal. Extremities have no cyanosis or clubbing. There is significant ecchymosis on the right upper arm at the site of infiltration of AV fistula. I removed the dressing from the angioplasty site and there was no bleeding. Neurologically, he is awake, alert and oriented times three. Today's labs show WBC count 9.9, hemoglobin 9.9, hematocrit 31.2, and platelets 283. Sodium 141, potassium 4.3, CO2 24, BUN 52 and creatinine 3.17. PROBLEMS: 1. End-stage renal disease. The patient has just started dialysis. We will plan to dialyze him again either Wednesday or Wednesday. At present, his volume status is well-compensated and he does not have any uremic symptoms. There is no emergent indication for dialysis today. His electrolytes are within normal range. 2. Hypertension. Blood pressure is very well controlled on current antihypertensive meds and no changes are being made today. 3. Anemia. He has been on Procrit as an outpatient. His anemia will now be managed with dialysis. At present, he is stable and no urgent intervention is indicated. 4. Dyspnea with congestive heart failure and chronic obstructive pulmonary disease (COPD). His volume status has improved with dialysis and diuresis. At present, his symptoms are much improved and he is able to ambulate without any problem. We will continue to manage his volume status with dialysis. 5. Disposition. We will try to get his outpatient dialysis scheduled within the next day or two and then he can be ready for discharge from a renal standpoint.
[2019-02-05] MEDS: WARFARIN SOD 7.5 MG TAB PO SCH (17:14)
[2019-02-05] MEDS: OMEPRAZOLE 20 MG CAP PO SCH (17:14)
[2019-02-05] MEDS: ATORVASTATIN 20 MG TAB PO SCH (20:42)
[2019-02-05] MEDS: DULoxetine 30 MG CAP (CYMBALTA) PO SCH (20:42)
[2019-02-05] MEDS: PRAMIPEXOLE (MIRAPEX) 0.125 MG TAB PO SCH (20:42)
[2019-02-05] MEDS: TAMSULOSIN 0.4 MG CAP PO SCH (20:42)
[2019-02-05] MEDS: traZODone 50 MG TAB PO SCH (20:42)
[2019-02-05] MEDS: ONDANSETRON 4 MG TAB (S0181) PO PRN (20:43)
[2019-02-06] VITALS (8 sets, daily range): BP systolic 130–170; BP diastolic 52–70; O2SAT 96
[2019-02-06] MEDS ORDERED: NITROGLYCERIN 0.4 MG SUBL TABLET SL STA (01:25)
[2019-02-06] MEDS: IPRATROPIUM 0.5MG/ALBUTEROL 2.5MG INH SOL UD 3ML (DUONEB)(J7620) NEB PRN (02:03)
[2019-02-06 02:32] LABS: MB/CK RELATIVE INDEX 3.8 (< OR =4); TROPONIN I 0.1 NG/ML (< 0.10)
[2019-02-06] MEDS: CALCITRIOL 0.25 MCG CAP (S0169) PO SCH (06:18)
[2019-02-06] MEDS: OMEGA-3 1000MG CAPSULE PO SCH ×3 (06:18→21:20)
[2019-02-06] MEDS: MIRALAX *UNIT DOSE* 17GM PACKET PO SCH ×3 (06:18→21:20)
[2019-02-06] MEDS: FLUTICASONE PROP 0.05% NASAL SPRAY 16 GM (FLONASE) SCH ×2 (06:19→21:22)
[2019-02-06] MEDS: TRIAMCINOLONE ACET 0.1% OINTMENT 80 GM TOP SCH ×2 (06:19→21:22)
[2019-02-06] MEDS: TORSEMIDE 20 MG TAB PO SCH (06:19)
[2019-02-06 06:20] LABS: MB/CK RELATIVE INDEX 4.35 (< OR =4); TROPONIN I 0.1 NG/ML (< 0.10)
[2019-02-06] MEDS: amLODIPine 10 MG TAB PO SCH (06:23)
[2019-02-06] MEDS: FERROUS SULFATE 325MG TAB PO SCH (06:24)
[2019-02-06] MEDS: HumaLOG INSULIN (NovoLOG) PER UNIT SC SCH ×4 (07:08→21:00)
[2019-02-06 07:26] LABS: ALBUMIN 2.2 GM/DL (3.2-5.2); CALCIUM LEVEL 7.3 MG/DL (8.8-10.2); CREATININE FOR GFR 3.41 MG/DL (0.70-1.30); GLOMERULAR FILTRATION RATE 19.3 (>49); PHOSPHORUS LEVEL 3.4 MG/DL (2.5-4.9); POTASSIUM SERUM 3.9 MEQ/L (3.5-5.1)
[2019-02-06] MEDS: ONDANSETRON 4 MG TAB (S0181) PO PRN ×2 (08:43→19:27)
[2019-02-06] MEDS ORDERED: BISOPROLOL FUMARATE 5 MG TAB PO SCH (09:00)
[2019-02-06] MEDS: SENOKOT S TAB PO SCH ×2 (09:39→21:20)
--- NOTE | 2019-02-06 09:56 | IPN ---
DATE: 02/06/2019 Nile is seen while rounding for the hospitalists. His primary care provider is Dr. David Orr. He has developed end stage renal disease and is being dialyzed and setup for outpatient dialysis. Last night he apparently had an episode of substernal heavy chest pain associated with significant shortness of breath. It felt like somewhat was "pushing down on my chest." He received sublingual nitroglycerin, EKGs were done. They did not show any ischemic changes. Repeat EKG this morning was also done. The notes from last nights intervention are still pending, but per the patient he was given nitro with relief of his chest pain. He does not have any documented history of coronary artery disease (CAD), but he has multiple cardiac risk factors including end stage renal disease (ESRD), hypertension and diabetes. He is complaining of constipation. PHYSICAL EXAMINATION: 154/52, pulse of 100, respiratory rate 20, 96% oxygen saturation. General appearance: Lying in bed, resting comfortably, no distress. HEENT: Unremarkable. LUNGS: Clear. HEART: Regular rate and rhythm. No murmur. ABDOMEN: Soft, nontender. No masses. Trace peripheral edema. LABS: He did not have an INR ordered this morning. White count is 9.9, hemoglobin 9.9, platelets 283. Sodium 141, potassium 3.9, glucose was 130. IMPRESSION: 1. Chest pain. The etiology is unknown but it is suspicious for coronary ischemia. I have reviewed his outpatient records. His current electrocardiogram and EKG done last night do not show any ischemic changes and they are unchanged from an office EKG from 03/16/2017. He did have cardiac testing done at [facility] in the past, but that was about 10 years ago. No ischemia noted at that time. I am concerned this chest pain is related to coronary ischemia. I am starting beta-feliciano therapy, ordered cardiac marker panel times three, and will put a consultation in for Dr. Pat from [facility] to see the patient. 2. Constipation. He is on MiraLAX and Senokot S. He is taking both oral and intravenous iron (getting Venofer with dialysis). I will stop the oral iron in the face of the constipation. 3. Diabetes. Blood sugar is under adequate control. 4. History of recurrent deep vein thromboses (DVTs). No INR ordered today. We have added one to the labs. His INR has been drifting down.
[2019-02-06 10:14] LABS: INR 1.85; PROTHROMBIN TIME 21.7 SECONDS (12.1-14.4)
[2019-02-06 10:53] LABS: MB/CK RELATIVE INDEX 2.21 (< OR =4); TROPONIN I 0.04 NG/ML (< 0.10)
[2019-02-06] MEDS ORDERED: HEPARIN 1,000 UNITS/ML 10ML VIAL (FOR RADIOLOGY& DIALYSIS ONLY) IV ONE (11:15)
[2019-02-06] MEDS ORDERED: LIDOCAINE 1% SDV 5 ML VIAL SQ ONE (11:15)
[2019-02-06] MEDS ORDERED: FLEET ENEMA PR PRN (11:30)
[2019-02-06] MEDS: LEVEMIR (INSULIN DETEMIR) 1 UNITS/0.01ML SC SCH ×2 (12:08→21:21)
--- NOTE | 2019-02-06 13:03 | IPN ---
DATE OF VISIT: 02/06/2019 Mr. Castillo is seen this morning on his bedside. He is sitting at the edge of bed. He reports that he woke up around 1 o'clock this morning short of breath and was evaluated by on-call hospitalist. He was treated with oxygen and sublingual nitroglycerin. In couple of hours, his condition improved and he settled down. His EKGs did not show any changes, and his troponins have been negative. Patient denies any nausea, vomiting, fever, or chills. On physical exam, temperature 97.5 degrees Fahrenheit, heart rate 90 per minute, and respiratory rate 20 per minute. Blood pressure 154/52 mmHg and oxygen saturation 96%. His head is atraumatic. Neck is supple, and jugular venous distention (JVD) is not elevated sitting upright. Lungs have slightly diminished breath sounds and few basilar rales. Heart sounds are tachycardiac. Abdomen: Soft and nontender and bowel sounds are normal. Extremities have no cyanosis or clubbing. Right arm arteriovenous (AV) fistula is patent. Neurologically, he is awake, alert and oriented times three. ADDENDUM: PROBLEMS: 1. End-stage renal disease. The patient has just started dialysis during this hospitalization. We plan to dialyze him again this afternoon. 2. Shortness of breath, probably related to slight volume and chronic obstructive pulmonary disease (COPD). He seems to be asymptomatic. His electrocardiogram (EKG) and troponin did not show any changes. We will try to remove at least 1 liter of fluid with dialysis today and see how he responds. 3. Anemia. His anemia has been stable, and we will continue to manage it with dialysis. 4. Hypertension. Blood pressure has been reasonable, and I am going to adjust his medications as he is somewhat tachycardiac. I am increasing his bisoprolol dose to 5 mg twice a day and cutting down amlodipine to 5 mg daily. He has history of atrial fibrillation and has been on chronic anticoagulation. DISPOSITION: Once his respiratory and cardiac status is cleared, he can probably be ready for discharge tomorrow. Addendum dictated 02/06/2019 Addendum transcribed 02/06/2019 aml
[2019-02-06 17:45] LABS: MB/CK RELATIVE INDEX 3.36 (< OR =4); TROPONIN I 0.09 NG/ML (< 0.10)
[2019-02-06] MEDS: OMEPRAZOLE 20 MG CAP PO SCH (18:13)
[2019-02-06] MEDS: WARFARIN SOD 5 MG TAB PO SCH (18:13)
[2019-02-06] MEDS: traZODone 50 MG TAB PO SCH (21:19)
[2019-02-06] MEDS: ATORVASTATIN 20 MG TAB PO SCH (21:19)
[2019-02-06] MEDS: DULoxetine 30 MG CAP (CYMBALTA) PO SCH (21:19)
[2019-02-06] MEDS: BISOPROLOL FUMARATE 5 MG TAB PO SCH (21:20)
[2019-02-06] MEDS: TAMSULOSIN 0.4 MG CAP PO SCH (21:20)
[2019-02-06] MEDS: PRAMIPEXOLE (MIRAPEX) 0.125 MG TAB PO SCH (21:20)
[2019-02-06] MEDS ORDERED: PROMETHAZINE 25 MG TAB PO ONE (22:00)
--- NOTE | 2019-02-06 22:34 | ECGEPIP ---
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 Electronically Signed On 02-06-2019 22:34:31 EDT by Eliel Muse
[2019-02-07 00:29] VITALS: O2SAT 94
[2019-02-07 02:00] VITALS: BP 143/70
[2019-02-07 02:07] LABS: MB/CK RELATIVE INDEX 2.87 (< OR =4); TROPONIN I 0.11 NG/ML (< 0.10)
[2019-02-07 06:00] VITALS: BP 123/58
[2019-02-07 06:40] LABS: HEMATOCRIT 31.8 % (42.0-52.0); MEAN CORPUSCULAR HEMOGLOBIN 29.1 pg (27.0-33.0); MEAN CORPUSCULAR HGB CONC 31.4 g/dl (32.0-36.5); MEAN CORPUSCULAR VOLUME 92.4 fl (80.0-96.0); PLATELET COUNT, AUTOMATED 277 10^3/uL (150-450); RED BLOOD COUNT 3.44 10^6/uL (4.30-6.10)
[2019-02-07 06:49] LABS: INR 1.7; PROTHROMBIN TIME 20.3 SECONDS (12.1-14.4)
[2019-02-07 07:01] LABS: CALCIUM LEVEL 7.8 MG/DL (8.8-10.2); CHOLESTEROL RISK RATIO 3.235 (<5); CREATININE FOR GFR 2.84 MG/DL (0.70-1.30); GLOMERULAR FILTRATION RATE 23.8 (>49); POTASSIUM SERUM 4.6 MEQ/L (3.5-5.1)
[2019-02-07] MEDS: SENOKOT S TAB PO SCH (08:19)
[2019-02-07] MEDS: OMEGA-3 1000MG CAPSULE PO SCH (08:19)
[2019-02-07] MEDS: MIRALAX *UNIT DOSE* 17GM PACKET PO SCH (08:19)
[2019-02-07] MEDS: ONDANSETRON 4 MG TAB (S0181) PO PRN (08:19)
[2019-02-07] MEDS: HumaLOG INSULIN (NovoLOG) PER UNIT SC SCH ×2 (08:19→12:07)
[2019-02-07] MEDS: TORSEMIDE 20 MG TAB PO SCH (08:20)
[2019-02-07] MEDS: TRIAMCINOLONE ACET 0.1% OINTMENT 80 GM TOP SCH (08:21)
[2019-02-07] MEDS: FLUTICASONE PROP 0.05% NASAL SPRAY 16 GM (FLONASE) SCH (08:21)
[2019-02-07] MEDS: BISOPROLOL FUMARATE 5 MG TAB PO SCH (08:35)
[2019-02-07 08:39] VITALS: BP 121/53
[2019-02-07 09:00] VITALS: O2SAT 99
[2019-02-07] MEDS ORDERED: amLODIPine 5 MG TAB PO SCH (09:00)
[2019-02-07 09:31] LABS: MB/CK RELATIVE INDEX 2.68 (< OR =4); TROPONIN I 0.06 NG/ML (< 0.10)
[2019-02-07 10:00] VITALS: BP 128/60
[2019-02-07] MEDS ORDERED: TORS20TA2 PO (10:16)
[2019-02-07] MEDS ORDERED: BISO5TAB5 PO (10:16)
[2019-02-07] MEDS ORDERED: AMLO5TAB6 PO (10:16)
--- NOTE | 2019-02-07 11:38 | IPN ---
DATE OF VISIT: 02/07/2019 Mr. Castillo is seen this morning on his bedside. He is feeling much better today and shortness of breath has completely resolved. He underwent hemodialysis yesterday afternoon and we removed about 1.5 liters of fluid with dialysis. He also has been diuresing very well. This morning he denies any nausea, vomiting, dyspnea, chest pain, dizziness. PHYSICAL EXAMINATION: Temperature 97.5 degrees Fahrenheit, heart rate 74 per minute and respiratory rate 18 per minute. Blood pressure 128/60 mmHg and oxygen saturation 97-99% on room air. His head is atraumatic. Neck is supple and without jugular venous distention (JVD) sitting upright. His heart sounds are irregular in rhythm and lungs sound clear to auscultation. Abdomen soft and nontender and bowel sounds are normal. Extremities have no cyanosis or clubbing. Right arm AV fistula is patent. Neurologically he is awake, alert and oriented times three. Today's labs show WBC count 11.0, hemoglobin 10.0, hematocrit 31.8. Platelets 277. Sodium 138, potassium 4.6, CO2 27, BUN 32 and creatinine 2.84. His troponin is down to 0.06 this morning while it was 0.011 nurse infection control. PROBLEMS: 1. End-stage renal disease. The patient just started dialysis during this hospitalization. He has been dialyzed three times and will be scheduled for outpatient dialysis tomorrow. 2. Congestive heart failure. Volume status has improved and optimized. The patient is still on diuretic and we will consider to cut down or stop his diuretic if his volume status remains maintained on outpatient. 3. Anemia. His anemia is stable at this point and he will continue to received PHILLIP during dialysis. 4. Hypertension. Blood pressure is very well controlled on current antihypertensive meds and no changes are being made today. DISPOSITION: From a renal standpoint, the patient can be discharged to home today and followup in outpatient dialysis clinic tomorrow. He also has already a followup scheduled with my office. The patient should followup with cardiology for his cardiac issues as an outpatient.
[2019-02-07] MEDS: LEVEMIR (INSULIN DETEMIR) 1 UNITS/0.01ML SC SCH (12:07)
--- NOTE | 2019-02-07 17:34 | DS.PDOC ---
Discharge Summary General Date of Admission Jan 29, 2019 at 21:16 Date of Discharge February 07, 2019 Attending Physician: AARON TURNER MD Specialist/Consultants Involve: Pearl Ramirez MD Discharge Summary PROCEDURES PERFORMED DURING STAY: [None]. ADMITTING DIAGNOSES: 1. SOB 2. CKD IV 3. COPD 4. DM 5. HTN 6. Hx of recurrent DVTs 7. Anemia DISCHARGE DIAGNOSES: 1. End-stage renal disease 2. CHF 3. Anemia 4. HTN COMPLICATIONS/CHIEF COMPLAINT: Diabetes Type 2, Copd W/Acute Exacerbation, Dvt. HISTORY OF PRESENT ILLNESS: Patient is a 68-year-old male with CKD stage IV currently getting evaluated for HD, diabetes, hypertension, COPD, anemia, current DVTs on chronic warfarin presents to ER with complaint of dyspnea. Patient reported that he has been short of breath for the past week and has progressively gotten worse. He has taken several respiratory treatments at home without relief. He reported that he had gained 11 pounds over the last several days with possible fullness and abdominal distention. He otherwise denies fever, chills or any other symptoms. Patient was saturating well on nasal cannula in the ER and had refused an ABG for evaluation of respiratory status. He stated he has had one ABG in the past and will refused to have any more future. HOSPITAL COURSE: The patient presented with the chief complaint of dyspnea and found to be fluid overloaded 2/2 questionable CHF vs kidney dysfunction. There was a plan to diurese with IV lasix and simultaneously use supplemental oxygen and inhaled steroids/albuterol for concurrent COPD. For his history of DVT, chronically on Warfarin, he was found to have therapeutic INR. Pulmonary embolis m was ruled out on admission. An echocardiogram demonstrated mitral valve insufficiency and aortic valve sclerosis. For his acute on chronic renal disease he was started on hemodialysis, which he tolerated well. Iron was supplemented appropriately. The patient was discharged on 02/07/19 with a clear treatment plan for hemodialysis and close follow up. DISCHARGE MEDICATIONS: Please see below. ALLERGIES: Please see below. PHYSICAL EXAMINATION ON DISCHARGE: VITAL SIGNS: Please see below. Temperature 97.5 degrees Fahrenheit, heart rate 74 per minute and respiratory rate 18 per minute. Blood pressure 128/60 mmHg and oxygen saturation 97-99% on room air. His head is atraumatic. Neck is supple and without jugular venous distention (JVD) sitting upright. His heart sounds are irregular in rhythm and lungs sound clear to auscultation. Abdomen soft and nontender and bowel sounds are normal. Extremities have no cyanosis or clubbing. Right arm AV fistula is patent. Neurologically he is awake, alert and oriented times three. LABORATORY DATA: Please see below. IMAGING: CXR 01/29/19 Impression: Small to moderate right pleural effusion and right basilar atelectasis. Cannot exclude interstitial edema. No focal consolidation. CXR 01/31/19 IMPRESSION: Mild cardiomegaly and vascular congestion. Improved interstitial edema. Persistent small right effusion. PROGNOSIS: fair ACTIVITY: [As tolerated]. DIET: Renal diet DISCHARGE PLAN: follow up with PCP and nephrology DISPOSITION: 01 Home, Self-Care. DISCHARGE INSTRUCTIONS: 1. Chronic renal failure ITEMS TO FOLLOWUP ON ON OUTPATIENT: NONE DISCHARGE CONDITION: [Stable]. TIME SPENT ON DISCHARGE: Greater than 30 minutes. Vital Signs/I&Os Vital Signs Date Time Temp Pulse Resp B/P (MAP) Pulse Ox O2 Delivery O2 Flow Rate FiO2 02/07/19 10:00 97.5 74 18 128/60 (82) 97 02/07/19 09:00 Room Air I&O- Last 24 Hours up to 6 AM 02/07/19 06:00 Intake Total 1110 ml Output Total 2450 ml Balance -1340 ml Laboratory Data Labs 24H Laboratory Tests 2 02/06/19 17:10: Total Creatine Kinase 131, Creatine Kinase MB 4.0H, Creatine Kinase MB Relative Index 3.36, Troponin I 0.09# 02/06/19 17:45: Bedside Glucose (Misc Panel) 88 02/06/19 20:55: Bedside Glucose (Misc Panel) 177H 02/07/19 01:29: Total Creatine Kinase 129, Creatine Kinase MB 4.0H, Creatine Kinase MB Relative Index 2.87, Troponin I 0.11#H 02/07/19 05:32: Nucleated Red Blood Cells % (auto) 0.0, Prothrombin Time 20.3H, Prothromb Time International Ratio 1.70, Anion Gap 6L, Glomerular Filtration Rate 23.8L, Calcium Level 7.8L, Triglycerides Level 128, LDL Cholesterol 88, Total Cholesterol 165, Non-HDL Cholesterol (LDL + VLDL) 114, Total HDL Cholesterol 51, Cholesterol/HDL Ratio 3.235 02/07/19 05:33: Bedside Glucose (Misc Panel) 125H 02/07/19 08:44: Total Creatine Kinase 142, Creatine Kinase MB 4.0H, Creatine Kinase MB Relative Index 2.68, Troponin I 0.06# 02/07/19 11:17: Bedside Glucose (Misc Panel) 180H CBC/BMP Laboratory Tests 02/07/19 05:32 Red Blood Count 3.44 L, Mean Corpuscular Volume 92.4, Mean Corpuscular Hemoglobin 29.1, Mean Corpuscular Hemoglobin Concent 31.4 L, Red Cell Distribution Width 14.2 FSBS Laboratory Tests Test 02/06/19 17:45 02/06/19 20:55 02/07/19 05:33 02/07/19 11:17 Range/Units Bedside Glucose (Misc Panel) 88 177 125 180 80-115 MG/DL Discharge Medications Scheduled Amlodipine Besylate (Amlodipine Besylate) 5 Mg Tablet, 5 MG PO DAILY Atorvastatin Calcium (Atorvastatin Calcium) 40 Mg Tab, 40 MG PO QPM, (Reported) Bisoprolol Fumarate (Bisoprolol Fumarate) 5 Mg Tablet, 5 MG PO BID Buprenorphine (Butrans) 20 Mcg/Hr Dis, 20 MCG TD QWEEK, (Reported) APPLIES ON FRIDAYS, PATCH IS CURRENTLY ON. Calcitriol (Calcitriol) 0.25 Mcg Cap, 0.25 MCG PO DAILY, (Reported) Duloxetine Hcl (Cymbalta) 60 Mg Cap, 60 MG PO QHS, (Reported) Epoetin Lopez (Procrit) 20,000 Unit/Ml Inj, 20,000 UNIT INJ QMONTH, (Reported) LAST INJECTION 01/16/19 Ergocalciferol (Vitamin D2) (Drisdol) 50,000 Unit Cap, 50,000 UNIT PO QWEEK, (Reported) WEDNESDAY Ferrous Sulfate (Ferrous Sulfate) 325 Mg Tab, 325 MG PO DAILY, (Reported) Fish Oil (Fish Oil 1000 mg) 1 Cap Cap, 1 CAP PO TID, (Reported) Fluticasone Propion/Salmeterol (Advair Hfa 230-21 Mcg Inhaler) 1 Aer Aer, 1 PUFF INH BID, (Reported) Fluticasone Propionate (Fluticasone Propionate) 50 Mcg/Act Spr, 1 SPRAY NA BID, (Reported) Glucagon,Human Recombinant (Glucagon Emergency Kit) 1 Mg Kit, 1 MG INJ ASDIRECTED, (Reported) Insulin Glargine (Lantus) 1 Units/0.01 Ml Susp, 8 UNITS SC QPM, (Reported) WITH SUPPER Insulin Glargine (Lantus) 1 Units/0.01 Ml Susp, 5 UNITS SC QHS, (Reported) Insulin Human Lispro (Novolog) 100 U/Ml Inj, 7 UNITS SC BID, (Reported) BREAKFAST AND DINNER Insulin Human Lispro (Novolog) 100 U/Ml Inj, 5 UNITS SC DAILY, (Reported) LUNCH Levocetirizine Dihydrochloride (Levocetirizine Dihydrochloride) 5 Mg Tab, 5 MG PO QHS, (Reported) Omeprazole (Omeprazole) 40 Mg Cap, 40 MG PO QPM, (Reported) WITH SUPPER Polyethylene Glycol 3350 (Miralax) 1 Pow Pow, 17 GM PO BID, (Reported) Pramipexole Dihydrochloride (Pramipexole Dihydrochlori) 0.125 Mg Tab, 0.125 MG PO QHS, (Reported) Tamsulosin HCl (Flomax) 0.4 Mg Cap, 0.4 MG PO QHS, (Reported) Torsemide (Torsemide) 20 Mg Tablet, 40 MG PO DAILY Trazodone HCl (Trazodone HCl) 50 Mg Tab, 50 MG PO QPM, (Reported) Warfarin Sodium (Warfarin Sodium) 5 Mg Tab, 5 MG PO 5XW, (Reported) TAKES ON WEDNESDAY, WEDNESDAY, WEDNESDAY, WEDNESDAY AND WEDNESDAY Warfarin Sodium (Warfarin Sodium) 7.5 Mg Tab, 7.5 MG PO 2XW, (Reported) ONLY SUNDAYS AND WEDNESDAYS AT 1700 Scheduled PRN (Saline Nasal Mozier) 0.65 % Spr, 1 SPRAY NARES DAILY PRN for CONGESTION, (Reported) Acetaminophen (Acetaminophen) 500 Mg Tab, 1,000 MG PO Q6H PRN for PAIN, (Reported) Albuterol Sulf (Albuterol Sulfate) 2.5 Mg/3 Ml Nebu, 2.5 MG INH Q4H PRN for SOB/WHEEZING, (Reported) Albuterol Sulfate (Proair Hfa) 108 Mcg/Act Aer, 2 PUFF INH Q4HP PRN for SOB/WHEEZING, (Reported) Hydrocodone/Acetaminophen (Hydrocodone-Acetamin 5-325 mg) 1 Tab Tab, 1 TAB PO Q6H PRN for PAIN, (Reported) Meclizine HCl (Meclizine HCl) 25 Mg Tab, 25 MG PO DAILY PRN for DIZZINESS, (Reported) Allergies Coded Allergies: carbamazepine (Verified Allergy, Severe, ANAPHYLAXIX, 01/29/19) phenobarbital (Verified Allergy, Severe, ANAPHYLAXIS, 01/29/19) phenytoin (Verified Allergy, Severe, ANAPHYLAXIS, 01/29/19) Penicillins (Verified Allergy, Intermediate, ITCHING, 01/29/19) bacitracin (Verified Allergy, Intermediate, FACIAL SWELLING, 01/29/19) latex (Verified Allergy, Intermediate, SEVERE RASH AND HIVES, 02/02/19) lisinopril (Verified Allergy, Intermediate, RASH, 01/29/19) meperidine (Verified Allergy, Intermediate, ITCHING, 01/29/19) neomycin (Verified Allergy, Intermediate, FACIAL SWELLING, 01/29/19) pioglitazone (Verified Allergy, Intermediate, EDEMA, 01/29/19) polymyxin B (Verified Allergy, Intermediate, FACIAL SWELLING, 01/29/19) metformin (Verified Allergy, Mild, RASH, 01/29/19) Aminoglycosides (Verified Allergy, Unknown, 01/29/19) NSAIDS (Non-Steroidal Anti-Inflamma (Verified Allergy, Unknown, 01/29/19) gabapentin (Verified Allergy, Unknown, 01/29/19) pregabalin (Verified Allergy, Unknown, 01/29/19) capsaicin (Verified Adverse Reaction, Intermediate, EXCESSIVE BURNING, 01/29/19) dapsone (Verified Adverse Reaction, Intermediate, ANEMIA, 01/29/19) levofloxacin (Verified Adverse Reaction, Intermediate, HEADACHE, 01/29/19) ropinirole (Verified Adverse Reaction, Intermediate, ELEVATED LIVER ENZYMES, 01/29/19) rosuvastatin (Verified Adverse Reaction, Unknown, HEADACHE, 01/29/19) GME ATTESTATION GME ATTESTATION My faculty preceptor for this patient encounter was physically present during the encounter and was fully available. All aspects of the patient interview, examination, medical decision making process, and medical care plan development were reviewed and approved by the faculty preceptor. The faculty preceptor is aware and concurs with the plan as stated in the body of this note and will attest to such by his/her cosignature. CHIYNERE BEARD MD Feb 07, 2019 17:33
--- NOTE | 2019-02-08 01:33 | CR ---
DATE OF CONSULTATION: 02/07/2019 PRIMARY PHYSICIAN: Dr. David Orr REFERRING PROVIDER: Dr. Pedro Bojorquez SECURITY SHIFT MANAGER: Dr. Ramirez REASON FOR THE CONSULT: Chest pain. HISTORY OF PRESENT ILLNESS: A 68-year-old male with a history of chronic kidney disease stage IV, which is being monitored by nephrology for quite a few years, hypertension, diabetes mellitus, chronic obstructive pulmonary disease (COPD), recurrent deep vein thrombosis (DVT) but no pulmonary embolism, has been having progressive shortness of breath with activities, relieved with rest. His symptoms increased for 2-3 days prior to coming to the hospital, and he came to the emergency room (ER) for further evaluation. He was found to be in decompensated congestive heart failure and cardiology consult was called. Echocardiogram revealed moderate to severe mitral regurgitation but with a normal global left ventricular systolic function. His kidney function has deteriorated, and he had started dialysis and so far tolerating it well. At home prior to coming to the hospital, he was having chest pressure associated with his shortness of breath with activities. While in the hospital, he has had a couple of episodes of chest tightness, relieved with nitroglycerin sublingual. When I saw Mr. Nile Castillo, he was sitting up in his bed in no acute distress at rest and his is at bedside. That was yesterday in the evening on 02/06/2019. He remained free of chest pain for the day. He has been ambulating around the nursing station. He is looking forward to going home if Dr. Ramirez can find a spot for him for his hemodialysis. He denies any bleeding. He has no cough. He has no focal manifestation. There is no active swelling or redness of the joints. He has no pedal edema. He has a past medical history positive for hypertension, hyperlipidemia, diabetes mellitus, recurrent DVTs but no pulmonary embolism, chronic kidney disease stage IV and associated anemia, COPD. Echocardiogram done revealed moderate to severe mitral regurgitation but normal left ventricular ejection fraction (LVEF). He also has underlying pulmonary hypertension. There is no known history of coronary artery disease, myocardial infarction, CVA/transient ischemic attack (TIA). Past surgical history is positive for carpal tunnel release surgery, surgery done on his cervical spine, and also recent IV access in the right arm for hemodialysis by Dr. Degroot. Family history is positive for diabetes mellitus. He also has a daughter with a history of blood clots. He denies any history of myocardial infarction, sudden cardiac , cardiomyopathy. He is not sure about underlying valvular heart disease. SOCIAL HISTORY: The patient lives with his , and he is a former smoker. He had stopped years ago. He denies any ethyl alcohol (EtOH) abuse or illicit drugs. ALLERGIES: To NONSTEROIDAL ANTI-INFLAMMATORY DRUGS (NSAIDS), AMINOGLYCOSIDES, PENICILLIN, BACTRIM, CARBAMAZEPINE, DAPSONE, GABAPENTIN, LATEX, LEVOFLOXACIN. MEDICATIONS AT HOME: Amlodipine 10 mg by mouth daily, atorvastatin 40 mg by mouth daily, Butrans 20 mcg apply to the skin, calcitriol 0.25 mcg daily, duloxetine 60 mg by mouth daily, ferrous sulfate 325 mg by mouth daily, fish oil 1000 mg by mouth daily, fluticasone nasal spray 50 mcg per spray one spray twice a day, insulin/Novolog, Lantus 8 units in the morning and 5 units in the evening, levocetirizine 5 mg by mouth daily, pramipexole 0.125 mg by mouth nightly, salmeterol/fluticasone 230-21 one puff twice a day via inhalation, tamsulosin 0.4 mg by mouth nightly, trazodone 50 mg by mouth nightly, vitamin D 50,000 units by mouth weekly, Coumadin as directed. PHYSICAL EXAMINATION: The patient is alert and awake, in no acute distress at rest and vital signs when I saw him revealed a blood pressure of 130/58 with a pulse of 74, respirations 16, and his maximum temperature was 98.1 degrees Fahrenheit with an oxygen saturation of 98% on room air. Examination of the head: Atraumatic. Neck is supple. No jugular venous distention (JVD) or carotid bruits appreciated. The lungs were clear bilaterally without any wheezing or crackles. The heart examination revealed irregular heart sounds without gallops. The point of maximum impulse (PMI) is not displaced. There is no rub. There is a systolic murmur grade 2 to 3 over 6 at the lower left sternal border and at the apex some radiation to the axilla. Abdomen is soft and nontender. Bowel sounds active. Extremities revealed no pedal edema. Neurologic examination is negative for focal deficit. LABORATORY: CBC on 02/05/2019 revealed a WBC of 9.9, hemoglobin 9.9, hematocrit 31.2 and platelets 283,000. Serum troponin was 0.04, 0.09, 0.11 and this morning 0.05. BMP on 02/06/2019 revealed a sodium of 141, potassium 3.9, chloride 110, CO2 24, BUN 55, creatinine 3.4, GFR 19.3, fasting glucose 130 and calcium 7.3. Repeat profile on 02/01/2019 revealed a total cholesterol of 195, LDL cholesterol 118, HDL 50, and total cholesterol/HDL ratio of 3.9 with triglycerides of 135. Repeat cholesterol on 02/07/2019 revealed a total cholesterol of 165, LDL 88, HDL 51, and total cholesterol/HDL ratio of 3.2 with triglycerides of 128. Chest x-ray on admission, 01/29/2019, revealed small to moderate right pleural effusion and increased vascular markings. No consolidation. Chest x-ray on 01/31/2019 revealed mild cardiomegaly and improved interstitial markings. There was persistent small pleural effusion. EKG on admission, 01/29/2019, revealed a normal sinus rhythm, left atrial abnormality and right ventricular conduction delay. Could not rule out prior inferior wall infarct. Low voltage QRS complexes noted in the limb leads. EKG on 02/03/2019 revealed irregular rhythm, tachycardic, and this seems to be sinus tachycardia versus atrial flutter. There is right ventricular conduction delay, left axis deviation/left anterior hemiblock and possible prior inferior wall infarct. There is also nonspecific ST-T abnormalities. Electrocardiogram done on 02/06/2019 revealed normal sinus rhythm at 99 beats per minute, left axis deviation, left anterior hemiblock and prior inferior wall infarct could not be ruled out. There is poor R wave progression noted in the right precordial leads but probably related to lead placement. There is also left atrial abnormality. Echocardiogram done on 01/31/2019 revealed LVEF estimated at 75%, mildly dilated left ventricle, moderately dilated left atrium, normal right ventricle, slightly dilated right atrium and inferior vena cava, aortic valve sclerosis, moderate to severe mitral regurgitation, mild tricuspid insufficiency. Chest pain in this 68-year-old male with a history of hypertension, diabetes mellitus, and chronic kidney disease for which he has started hemodialysis this week. His repeat profile seems to be normal. His chest pain seems to be consistent with angina, and this was discussed with him as well as his . He most likely will be discharged home today, and he will be seen as an outpatient. His medications were reviewed, and I will continue the same. He will be called for an appointment. He was told that he will need a stress test, and he is in agreement. It was a pleasure to participate in the care of Mr. Nile Castillo for his underlying cardiac condition. He appears to be stable, and he may be discharged home unless he continues to have recurrent chest pain. I will see him as an outpatient. JOVANNA
--- NOTE | 2019-02-08 21:06 | ECGEPIP ---
Stationary ECG Study [facility] Test Date: 2019-02-06 Pat Name: YOVANI VALLEJO Department: Room: [place] [address] Gender: M [employer] Team Member: FRANCINE : 1950 Requested By: FAUSTINO FERNANDEZ Order Number: [id number] Reading MD: Eliel Muse Measurements Intervals [place] Rate: 92 P: 51 CT: 159 QRS: -38 QRSD: 96 T: 74 QT: 348 QTc: 432 Interpretive Statements SINUS RHYTHM, RSr' V1 & V2 (RV conduction delay), LEFT AXIS DEVIATION Electronically Signed On 02-08-2019 21:06:29 EDT by Eliel Muse
--- NOTE | 2019-03-01 11:33 | RO ---
DATE OF PROCEDURE: 02/07/2019 ATTENDING SURGEON: Dr. Chapis Degroot PREOPERATIVE DIAGNOSIS: Dysfunctional left arm fistula. POSTOPERATIVE DIAGNOSIS: Dysfunctional left arm fistula. PROCEDURE: Left arm fistulogram. INDICATION: The patient is a male with end-stage renal disease who dialyzes through a left arm fistula who will undergo a fistulogram due to difficulty using the fistula and swelling in the arm. Risks, benefits, and alternative options have been discussed with the patient. ANESTHESIA: Was local. ESTIMATED BLOOD LOSS: Minimal. INTRAVENOUS (IV) FLUID: 100 mL. FLUORO TIME: 14 minutes. COMPLICATIONS: None. DRAINS: None. SPECIMENS: None. IMPLANTS: None. DESCRIPTION OF PROCEDURE: The patient was taken to the angiography suite, placed supine on the angiography table, and then prepped and draped in a standard surgical fashion. The fistula was cannulated, and a fistulogram was performed showing no intervention was required. The sheath was removed, and manual compression was applied at the puncture site for hemostasis. Dressings were then applied. The patient tolerated the procedure well. All instrument, sponge, and needle counts were correct at the end of the case. There were no complications. Dr. Degroot was present for and directed the entire case. The patient was transferred to the holding area and subsequently to the floor in stable condition.
== END 2019-02-07 13:20 | disposition home or self-care (01) | DRG 186 ==
LOC: M ED 19:03 → M MSPAV 21:16 → M ED INP 21:16 → M MSPAV 23:40
PROVIDERS: ADMIT Student in an Organized Health Care Education/Training Program; ATTEND Internal Medicine
PROC: BP0 Imaging, Non-Axial Upper Bones, Plain Radiography (ICD-10-PCS; 2019-02-02)
PROC: 5A1D70Z Performance of Urinary Filtration, Intermittent, Less than 6 Hours Per Day (ICD-10-PCS; principal; 2019-02-03)
DX: J90 Pleural effusion, not elsewhere classified (principal); N18.6 End stage renal disease; J44.1 Chronic obstructive pulmonary disease with (acute) exacerbation; I13.2 Hypertensive heart and chronic kidney disease with heart failure and with stage 5 chronic kidney disease, or end stage renal disease; E87.2 Acidosis; N25.81 Secondary hyperparathyroidism of renal origin; E87.70 Fluid overload, unspecified; E11.42 Type 2 diabetes mellitus with diabetic polyneuropathy; E11.22 Type 2 diabetes mellitus with diabetic chronic kidney disease; F32.9 Major depressive disorder, single episode, unspecified; I50.9 Heart failure, unspecified; K59.00 Constipation, unspecified; N40.0 Benign prostatic hyperplasia without lower urinary tract symptoms; I20.9 Angina pectoris, unspecified; E11.65 Type 2 diabetes mellitus with hyperglycemia; D63.1 Anemia in chronic kidney disease; Z79.01 Long term (current) use of anticoagulants; Z98.1 Arthrodesis status; Z86.718 Personal history of other venous thrombosis and embolism; Z79.4 Long term (current) use of insulin; Z79.899 Other long term (current) drug therapy; Z88.0 Allergy status to penicillin; Z88.1 Allergy status to other antibiotic agents; Z88.6 Allergy status to analgesic agent; Z88.8 Allergy status to other drugs, medicaments and biological substances; Z87.891 Personal history of nicotine dependence; Z99.2 Dependence on renal dialysis

== ENCOUNTER → 2019-05-02 | Outpatient (CLI) | payer MEDICARE ==
[~2019-05-02] MED LIST changes: +ACET-683 PO; +ATOR40TA75 PO; +BISO5TAB5 PO; +FURO40TA2 PO; +OMEG10002 PO; +OMEP40CA2 PO; +PRAM0.754 PO; +TORS20TA2 PO
--- NOTE | 2019-05-16 02:42 | ECWPNPC ---
PATIENT NAME: YOVANI VALLEJO : 1950 GENDER: MALE VISIT DATE: 05/02/2019 DISCHARGE DATE: 05/02/19 1122 VISIT LOCKED DATE TIME: PHYSICIAN: SAVANNA PARR RESOURCE: SAVANNA PARR DISCLAIMER : THIS IS A VISIT SUMMARY EXTRACTED FROM THE [facility] CHART. IT IS NOT A COPY OF THE [facility] PROGRESS NOTE. JOVANNA
== END ==
LOC: M PAIN 10:00
PROVIDERS: ATTEND Nurse Practitioner Family
DX: E11.42 Type 2 diabetes mellitus with diabetic polyneuropathy (principal); E78.5 Hyperlipidemia, unspecified; I12.9 Hypertensive chronic kidney disease with stage 1 through stage 4 chronic kidney disease, or unspecified chronic kidney disease; J44.9 Chronic obstructive pulmonary disease, unspecified; K21.9 Gastro-esophageal reflux disease without esophagitis; G25.81 Restless legs syndrome; K90.0 Celiac disease; G47.33 Obstructive sleep apnea (adult) (pediatric); N18.4 Chronic kidney disease, stage 4 (severe); I87.2 Venous insufficiency (chronic) (peripheral); Z79.4 Long term (current) use of insulin; Z79.01 Long term (current) use of anticoagulants; Z79.891 Long term (current) use of opiate analgesic; Z79.899 Other long term (current) drug therapy; Z88.0 Allergy status to penicillin; Z88.1 Allergy status to other antibiotic agents; Z88.6 Allergy status to analgesic agent; Z88.8 Allergy status to other drugs, medicaments and biological substances; Z91.030 Bee allergy status; Z98.1 Arthrodesis status

== ENCOUNTER 2019-05-09 14:01 | Outpatient (CLI) | payer MEDICARE ==
[~2019-05-09 14:01] MED LIST changes: +BUPIVACAINE HCL 0.5% 10 ML VIAL As Ordered ONE; +ISOVUE-300 61% 50ML VIAL (Q9967) As Ordered ONE; +LIDOCAINE 2% MDV 20 ML VIAL As Ordered ONE
[2019-05-09] MEDS ORDERED: AMLO25TA PO (15:01)
[2019-05-09] MEDS ORDERED: fentaNYL 100 MCG/2 ML INJECTION (J3010) As Ordered ONE (15:12)
[2019-05-09] MEDS ORDERED: MIDAZOLAM INJ 2 MG/2 ML VIAL (J2250) As Ordered ONE (15:12)
[2019-05-09 16:14] VITALS: BP 137/66
--- NOTE | 2019-06-08 09:00 | REPIR ---
DATE OF PROCEDURE: 05/09/2019 PREOPERATIVE DIAGNOSIS: End-stage renal disease, dysfunctional right brachiocephalic arteriovenous fistula. POSTOPERATIVE DIAGNOSIS: End-stage renal disease, dysfunctional right brachiocephalic arteriovenous fistula. PROCEDURE: Right brachiocephalic arteriovenous fistulogram, retrograde right brachial artery angiogram, right cephalic vein angioplasty with 8 x 100 balloon. ATTENDING SURGEON: Dr. Chapis Degroot. SHANK MAKER: Rosey Solis and Altagracia Squires. ANESTHESIA: Local with sedation with 2 mg Versed, 100 mcg fentanyl, 4 mL of 2 % lidocaine mixed with 0.5% Marcaine. FLUORO TIME: 0.9 minutes. CONTRAST: 7 mL of Isovue-300. SEDATION TIME: From 1535 to 1554 for a total of 19 minutes. COMPLICATIONS: None. DRAINS: None. SPECIMENS: None. IMPLANTS: None. INDICATION: The patient is a 69-year-old male with a right brachiocephalic arteriovenous fistula that has been dysfunctional with clot formation during hemodialysis and hematoma and extravasation during cannulation. The patient undergo a fistulogram, possible angioplasty stent and/or atherectomy. Risks, benefits and alternative treatment options were discussed with the patient. DESCRIPTION OF PROCEDURE: The patient was taken to the angiography suite, placed supine on the angiography room table and then prepped and draped in a standard surgical fashion. The right brachiocephalic arteriovenous fistula was cannulated. A fistulogram was performed showing stenosis in the cephalic vein. The cephalic vein was angioplasty with an 8 x 100 balloon during which a retrograde brachial artery angiogram was performed showing no intervention required. Completion fistulogram showed resolution of the stenosis with excellent flow through the fistula and resolution of the stenosis. Catheters and wires were removed. The sheath was removed and a #2-0 Prolene suture was placed at the puncture site for hemostasis. Dressings were then applied. The patient tolerated procedure well. All instrument, sponge and needle counts were correct at the end of the case. There was no complications. Dr. Degroot was present for and directed the entire case. The patient was transferred to the holding area subsequent discharged in stable condition.
== END 2019-05-09 16:20 | disposition home or self-care (01) ==
LOC: M IRPRO 14:01
PROVIDERS: ATTEND Surgery Vascular Surgery
DX: T82.898A Other specified complication of vascular prosthetic devices, implants and grafts, initial encounter (principal); N18.6 End stage renal disease; E11.22 Type 2 diabetes mellitus with diabetic chronic kidney disease; J44.9 Chronic obstructive pulmonary disease, unspecified; E78.5 Hyperlipidemia, unspecified; K90.0 Celiac disease; F32.9 Major depressive disorder, single episode, unspecified; M54.9 Dorsalgia, unspecified; G47.33 Obstructive sleep apnea (adult) (pediatric); Z86.718 Personal history of other venous thrombosis and embolism; Z79.01 Long term (current) use of anticoagulants; X58.XXXA Exposure to other specified factors, initial encounter; Y93.9 Activity, unspecified; Y92.9 Unspecified place or not applicable; Y99.9 Unspecified external cause status
CPT/HCPCS: 36902; 99152; C1725; C1769; C1894; J2250; J3010; Q9967

== ENCOUNTER → 2019-05-23 | Outpatient (REF) | payer MEDICARE ==
[~2019-05-23] MED LIST changes: -BUPIVACAINE HCL 0.5% 10 ML VIAL As Ordered ONE; -ISOVUE-300 61% 50ML VIAL (Q9967) As Ordered ONE; -LIDOCAINE 2% MDV 20 ML VIAL As Ordered ONE
[2019-05-23 11:50] LABS: BASO % 0.6 % (0.0-1.0); EOS # 0.3 10^3/uL (0.0-0.50); HEMATOCRIT 38.1 % (42.0-52.0); LYMPH # 1.4 10^3/uL (1.5-4.5); LYMPH % 19.7 % (24.0-44.0); MEAN CORPUSCULAR HEMOGLOBIN 31.7 pg (27.0-33.0); MEAN CORPUSCULAR HGB CONC 31.5 g/dl (32.0-36.5); MEAN CORPUSCULAR VOLUME 100.5 fl (80.0-96.0); MONO # 0.7 10^3/uL (0.0-0.8); MONO % 9.8 % (0.0-5.0); NEUTROPHILS # 4.6 10^3/uL (1.8-7.7); NEUTROPHILS % 65.6 % (36.0-66.0); PLATELET COUNT, AUTOMATED 171 10^3/uL (150-450); RED BLOOD COUNT 3.79 10^6/uL (4.30-6.10)
[2019-05-23 11:56] LABS: CALCIUM LEVEL 8.6 MG/DL (8.8-10.2); CREATININE FOR GFR 3.56 MG/DL (0.70-1.30); GLOMERULAR FILTRATION RATE 18.3 (>49); POTASSIUM SERUM 3.6 MEQ/L (3.5-5.1)
== END ==
LOC: M LABDRAWP 09:44
PROVIDERS: ATTEND Internal Medicine Cardiovascular Disease
DX: Z01.810 Encounter for preprocedural cardiovascular examination (principal)

== ENCOUNTER → 2019-08-08 | Outpatient (CLI) | payer MEDICARE, MEDICAID ==
[~2019-08-08] MED LIST changes: -ALL10TAB28 PO; +ALL10TAB29 PO; -BISO5TAB5 PO; +BISO5TAB9 PO; +OMEP-358 PO; -OMEP20TA PO; -OMEP40CA2 PO; +OMEP40CA97 PO
--- NOTE | 2019-08-12 09:36 | SLEEPCENT ---
DATE OF PROCEDURE: 08/08/2019 ORDERED BY: Parisa Case NP Nocturnal polysomnography was performed for retitration of pressure therapy in this patient with a history of obstructive sleep apnea syndrome. Apnea-hypopnea index of 19.4. For testing, the patient was fit with a ResMed Air Fit F30 standard size mask, 5 cm of water pressure applied to the circuit, and the lights were extinguished. 8 hours and 11 minutes of data were reviewed. There were only 97 minutes of sleep identified. Sleep latency was prolonged at 149 minutes. Rapid eye movement (REM) sleep was not achieved. Sleep architecture was poor with prolonged periods of wake. Overall sleep efficiency was only 20%. The patient's electrocardiogram showed sinus rhythm with an average heart rate of 56 beats per minute with frequent premature ventricular contractions (PVCs). Electroencephalogram (EEG) showed reasonably normal waveforms for awake and sleep stages. Respiratory events were fully palliated with C-PAP to a pressure of +5, however, sleep progression, as noted above, was quite poor. There was no significant activity in the limb leads. IMPRESSION: Obstructive sleep apnea syndrome (G47.33). RECOMMENDATIONS: Reinstitution of pressure therapy at 5 cm of water would seem appropriate based on these limited resolve. Should the patient continue to experience symptoms, full night retitration may be necessary.
== END ==
LOC: M SLEEP 19:25
PROVIDERS: ATTEND Nurse Practitioner Family
DX: G47.33 Obstructive sleep apnea (adult) (pediatric) (principal); R25.2 Cramp and spasm; D63.8 Anemia in other chronic diseases classified elsewhere; E11.9 Type 2 diabetes mellitus without complications; E78.2 Mixed hyperlipidemia; E55.9 Vitamin D deficiency, unspecified
CPT/HCPCS: 36415; 80061; 82043; 82330; 83036; 83735; 84100; 84132; 85025; 95811; G0463

== ENCOUNTER → 2019-08-08 | Outpatient (REF) | payer MEDICARE, MEDICAID ==
[~2019-08-08] MED LIST changes: -OMEP-358 PO; +OMEP20TA PO; +OMEP40CA2 PO; -OMEP40CA97 PO
[2019-08-08 13:10] LABS: IONIZED CALCIUM 4.3 MG/DL (4.5-5.3)
[2019-08-08 13:14] LABS: BASO # 0.1 10^3/uL (0.0-0.2); BASO % 0.6 % (0.0-1.0); EOS # 0.3 10^3/uL (0.0-0.5); EOS % 3.1 % (0.0-3.0); HEMATOCRIT 34.7 % (42.0-52.0); HEMOGLOBIN 10.6 g/dl (13.5-17.5); LYMPH # 1.2 10^3/uL (1.5-5.0); LYMPH % 13.6 % (24.0-44.0); MEAN CORPUSCULAR HEMOGLOBIN 31.5 pg (27.0-33.0); MEAN CORPUSCULAR HGB CONC 30.5 g/dl (32.0-36.5); MONO # 0.8 10^3/uL (0.0-0.8); MONO % 9.5 % (0.0-5.0); NEUTROPHILS # 6.4 10^3/uL (1.5-8.5); PLATELET COUNT, AUTOMATED 162 10^3/uL (150-450); RED BLOOD COUNT 3.37 10^6/uL (4.30-6.10); WHITE BLOOD COUNT 8.7 10^3/uL (4.0-10.0)
[2019-08-08 13:51] LABS: CHOLESTEROL RISK RATIO 3.625 (<5); PHOSPHORUS LEVEL 3.4 MG/DL (2.5-4.9); POTASSIUM SERUM 3.9 MEQ/L (3.5-5.1)
[2019-08-08 14:24] LABS: HEMOGLOBIN A1c 6.4 %
== END ==
LOC: M SFHCPLAZ 11:51
PROVIDERS: ATTEND Family Medicine
DX: R25.2 Cramp and spasm (principal); D63.8 Anemia in other chronic diseases classified elsewhere; E11.9 Type 2 diabetes mellitus without complications; E78.2 Mixed hyperlipidemia; E55.9 Vitamin D deficiency, unspecified

== ENCOUNTER → 2019-09-14 | Outpatient (CLI) | payer MEDICARE, MEDICAID ==
[~2019-09-14] MED LIST changes: +OMEP-358 PO; -OMEP20TA PO; -OMEP40CA2 PO; +OMEP40CA97 PO
--- NOTE | 2019-09-14 17:39 | REP ---
CT chest without contrast: History: Pulmonary fibrosis. Comparison chest CT study July 03, 2016. CT findings: There is mild subcarinal, peritracheal, and anterior pretracheal lymphadenopathy. Multiple small nodes are seen in this distribution. These are a little more prominent than on the prior study. Today's study demonstrates a epicardial lymph node which measures 10 mm in short axis dimension. Previously, this lymph node was seen measuring 7 mm in short axis dimension. There are multiple small nodes in the celiac axis region in the upper abdomen. No axillary adenopathy is seen. No supraclavicular adenopathy is observed. There is fairly heavy vascular calcification including left and right coronary artery vascular calcification. No pericardial or left pleural effusion is seen. There is a tiny sliver of right pleural fluid. There are scattered very subtle reticulonodular interstitial changes noted in the upper lobes bilaterally, the medial aspect of the right lower lobe, and both lower lobes of the diaphragms. These are most prominent in the right lower lobe where there is some early subcentimeter nodularity. This area is a little more prominent than previously. The upper lobe reticulonodular densities are probably less prominent than they were January 01, 2016. No bony destructive lesion is seen. No lung mass lesion is observed. There is a small cyst in the upper pole right kidney which measures 2.1 cm in greatest diameter. This is unchanged. Impression: Patchy areas of predominately peripheral subpleural reticular nodular fibrosis. Mild mediastinal and upper abdominal lymphadenopathy. These lymph nodes are little more prominent than on the 2016 prior study. There is heavy vascular calcification. A tiny sliver of pleural fluid is noted on the right. Electronically Signed by Jordy Garcia MD 09/14/2019 06:42 P
== END ==
LOC: M RAD 13:23
PROVIDERS: ATTEND Internal Medicine Nephrology
DX: J84.10 Pulmonary fibrosis, unspecified (principal); R91.8 Other nonspecific abnormal finding of lung field

== ENCOUNTER → 2019-09-26 | Outpatient (CLI) | payer MEDICARE, MEDICAID ==
--- NOTE | 2019-10-10 04:10 | ECWPNPC ---
PATIENT NAME: YOVANI VALLEJO : 1950 GENDER: MALE VISIT DATE: 09/26/2019 DISCHARGE DATE: 09/26/19 1145 VISIT LOCKED DATE TIME: PHYSICIAN: SAVANNA PARR RESOURCE: SAVANNA PARR REASON FOR APPOINTMENT 1. FOOT/LEGS HISTORY OF PRESENT ILLNESS HISTORY OF PRESENT ILLNESS: HERE FOR F/U OF CHRONIC LOWER EXTREMITY NEUROPATHY.CURRENTLY USING BUTRANS 20 MCG Q 7DAYS.CURRENTLY ON DIALYSIS.FINDS BUTRANS SOMEWHAT HELPFUL AT REDUCING PAIN AND KEEPING HIM COMFORTABLE.RATING APIN VAS 8/10.FELL AND FRACTURED BACK 2 WEEKS AGO.WEARING A BACK BRACE AND FOLLOWING WITH [facility]. PAIN THE PATIENT DESCRIBES THE PAIN... FALL RISK SCREENING: SCREENING :NO FALLS REPORTED IN THE LAST YEAR CURRENT MEDICATIONS TAKING MECLIZINE HCL 12.5 MG TABLET 2 TABLETS NEEDED ORALLY ONCE A DAY NEEDED FOR VERTIGO, NOTES: PRN TAKING FISH OIL 1200 MG CAPSULE 1 CAP(S) ORALLY THREE TIMES A DAY TAKING PEN NEEDLES 31G X 5 MM ULTRA FINE 1 EACH INTRADERMALLY DIAG CODE 250.6 FOUR TIMES A DAY TAKING TAMSULOSIN HCL 0.4 MG CAPSULE EXTENDED RELEASE 24 HOUR 1 CAPSULE 30 MINUTES AFTER THE SAME MEAL EACH DAY ORALLY ONCE A DAY TAKING SALINE NASAL SPRAY 0.65 % SOLUTION 2 SPRAYS EACH NOSTRIL NASALLY FOUR TIMES DAILY NEEDED, NOTES: PRN TAKING CETAPHIL - LOTION DIRECTED EXTERNALLY DAILY TAKING AMLODIPINE BESYLATE 5 MG TABLET 1/2 TAB ORALLY ONCE A DAY TAKING ALBUTEROL SULFATE (2.5 MG/3ML) 0.083% NEBULIZATION SOLUTION 3 ML INHALATION TWICE DAILY NEEDED FOR WHEEZING, NOTES: USES BID TAKING BLOOD PRESSURE MONITOR - KIT DIRECTED TAKING FULL KIT NEBULIZER SET - MISCELLANEOUS DIRECTED DX J44.9 (COPD) DAILY TAKING MIRALAX - PACKET 1 PACKET MIXED WITH 8 OUNCES OF FLUID ORALLY 3 TIMES A DAY TAKING VITAMIN D (ERGOCALCIFEROL) 03719 UNIT CAPSULE 1 CAPSULE ORALLY ONCE A WEEK TAKING BISOPROLOL FUMARATE 5 MG TABLET 1 TABLET ORALLY ONCE A DAY TAKING PRAMIPEXOLE DIHYDROCHLORIDE 0.125 MG TABLET 1 TABLET BEFORE BEDTIME ORALLY ONCE A DAY TAKING ZOFRAN ODT 4 MG TABLET DISINTEGRATING 1 TABLET ON THE TONGUE AND ALLOW TO DISSOLVE ORALLY 3 TIMES A DAY NEEDED FOR NAUSEA, NOTES: PRN TAKING BUTRANS 20 MCG/HR PATCH WEEKLY 1 PATCH TO SKIN TRANSDERMAL APPLY 1 PATCH Q 7 DAYS MDD=1 TAKING GABAPENTIN 100 MG CAPSULE 1 CAPSULE ORALLY ONCE A DAY TAKING ISOSORBIDE MONONITRATE ER 30 MG TABLET EXTENDED RELEASE 24 HOUR TK 1 T PO ORAL ONCE A DAY TAKING BUPROPION HCL ER (XL) 150 MG TABLET EXTENDED RELEASE 24 HOUR 1 TABLET IN THE MORNING ORALLY ONCE A DAY TAKING LEVOCETIRIZINE DIHYDROCHLORIDE 5 MG TABLET 1 TABLET IN THE EVENING ORALLY ONCE A DAY TAKING FLONASE ALLERGY RELIEF 50 MCG/ACT SUSPENSION 1 SPRAY IN EACH NOSTRIL NASALLY TWICE A DAY TAKING AZELASTINE HCL 137 MCG/SPRAY SOLUTION 1 SPRAY IN EACH NOSTRIL NASALLY TWICE A DAY TAKING ADVAIR HFA 230-21 MCG/ACT AEROSOL 2 PUFFS INHALATION TWICE A DAY TAKING LORAZEPAM 0.5 MG TABLET 1 TABLET ORALLY THREE TIMES DAILY NEEDED FOR ANXIETY. MDD 3 CODE A TAKING VELPHORO 500 MG TABLET CHEWABLE 1 TABLET WITH MEALS ORALLY TWICE A DAY TAKING NOVOLOG 100 UNIT/ML SOLUTION - SUBCUTANEOUS 7 UNITS IN AM, 5 UNITS LUNCH AND 7 UNITS DINNER TAKING GLUCAGON EMERGENCY 1 MG KIT DIRECTED INJECTION DAILY NEEDED TAKING LANTUS 100 UNIT/ML SOLUTION TWICE A DAY SUBCUTANEOUS 8 UNITS IN AM AND 5 UNITS AT BEDTIME TAKING LIPITOR 40 MG TABLET 1 TABLET ORALLY ONCE A DAY TAKING CYMBALTA 20 MG CAPSULE DELAYED RELEASE PARTICLES DIRECTED ORALLY ONCE A DAY, NOTES: TAKE TWO CAPS FOR 7 DAYS, THEN START FLUOXETINE AND TAKE 1 CAP DAILY FOR 7 DAYS, THEN STOP DULOXETINE AND CONTINUE FLUOXETINE TAKING FLUOXETINE HCL 20 MG CAPSULE 1 CAPSULE ORALLY ONCE A DAY TAKING LEVOFLOXACIN 250 MG TABLET 1 TABLETS ORALLY EVERY OTHER DAY TAKING NORCO 5-325 MG TABLET 1 TABLET NEEDED ORALLY MDD4 (ISTOP:[id number]) FOUR TIMES DAILY NEEDED TAKING COUMADIN 5 MG TABLET 1 TABLET ORALLY 10 MG MON AND FRI, 7.5 MG TUE, WED, WED, SAT, SUN TAKING PLAVIX 75 MG TABLET 1 TABLET ORALLY ONCE A DAY TAKING NITROGLYCERIN 0.4 MG TABLET SUBLINGUAL DIRECTED SUBLINGUAL NOT-TAKING FERROUS SULFATE 325 (65 FE) MG TABLET 1 TABLET ORALLY ONCE A DAY NOT-TAKING CALCITRIOL 0.25 MCG CAPSULE TK 1 C PO QD ORAL NOT-TAKING OMEPRAZOLE 40 MG CAPSULE DELAYED RELEASE 1 CAPSULE ORALLY ONCE A DAY NOT-TAKING CARAFATE 1 GM TABLET 1 TABLET ON AN EMPTY STOMACH ORALLY TWICE A DAY NOT-TAKING CYMBALTA 20 CAPSULE DELAYED RELEASE PARTICLES DIRECTED ORALLY ONCE A DAY NOT-TAKING FLUOXETINE HCL 20 CAPSULE 1 CAPSULE ORALLY ONCE A DAY NOT-TAKING TESSALON PERLES 100 MG CAPSULE 1 CAPSULE NEEDED ORALLY THREE TIMES A DAY NOT-TAKING ZOLPIDEM TARTRATE 5 MG TABLET 1 TABLET AT BEDTIME ORALLY ONCE A DAY NOT-TAKING PROCRIT 42604 UNIT/ML SOLUTION INJECTION MONTHLY NOT-TAKING PROVENTIL HFA 108 (90 BASE) MCG/ACT AEROSOL SOLUTION 2 PUFFS INHALATION EVERY 4 HOURS NEEDED, NOTES: PRN NOT-TAKING TRAZODONE HCL 50 MG TABLET 1 TABLET AT BEDTIME ORALLY ONCE A DAY MEDICATION LIST REVIEWED AND RECONCILED WITH THE PATIENT PAST MEDICAL HISTORY DVT CHRONIC PHLEBITIS CHRONIC VENOUS INSUFFICIENCY PERIPHERAL NEUROPATHY TYPE 2 DIABETES--DR Amisha PRADO HYPERLIPIDEMIA HTN COPD HX OF DEPRESSION DDD/DJD GERD DERMATITIS HERPETIFORMIS-- + BX 05/03 DR MCDONALD ADENOMATOUS COLON POLYP 2009 RESTLESS LEG SYNDROME CELIAC DISEASE RIGTH SHOULDER NERVE IMPINGEMENT/RIGHT CARPEL TUNNEL - DR. PRADO GORDON ON CPAP SUBCLINICAL HYPOTHYROIDISM 06/07 DIVERTICULOSIS 04/2019 KIDNEY DISEASE STAGE 4 REGURING DIALYSIS 3 TIMES WEEKLY L2 VERTERAE FX DERMATITIS HERPETIFORMIS L3 FRACTURE ALLERGIES ACTOS: EDEMA - SIDE EFFECTS DEMEROL: HIVES - ALLERGY DILANTIN: ANAPHYLAXIS - ALLERGY GLUCOPHAGE: RASH - ALLERGY LEVAQUIN: HEAD ACHE - SIDE EFFECTS PHENOBARBITAL: ANAPHYLAXIS - ALLERGY TEGRETOL: ANAPHYLAXIS - ALLERGY PENICILLIN (FOR ALLERGIES USE ONLY): HIVES - ALLERGY TRIPLE ANTIBIOTIC: FACIAL SWELLING - ALLERGY REQUIP: ELEVATED LIVER ENZYMES LATEX (FOR ALLERGY USE ONLY): RASH - ALLERGY CRESTOR: HEADACHE LYRICA: DIDN'T WORK - SIDE EFFECTS CAPSACIN (TOPICALLY): EXCESSIVE BURNING - SIDE EFFECTS LISINOPRIL: RASH - SIDE EFFECTS GABAPENTIN: DIDN'T WORK - LACK OF THERAPEUTIC EFFECT DAPSONE: ANEMIA - SIDE EFFECTS NSAIDS: CONTRAINDICATION BEES: ANAPHYLAXIS - ALLERGY SURGICAL HISTORY CERVICAL SPINE FUSION 06/2003 L ARM BREAK REPAIR 11/1981 R LEG BREAK REPAIR 02/1982 COLONSOCOPY (ADENOMATOUS POLYP 2009) 2003,2009 EGD 2009 ENDOSCOPY AND COLONOSCOPY 2015DEC 13 FISTUAL PLACED IN RIGHT ARM 2018OCT 26 STENTS PLACED IN LAD 05/2019 FAMILY HISTORY FATHER: MOTHER: SOCIAL HISTORY GENERAL: TOBACCO USE ARE YOU A: NONSMOKER. HIV / HEP-C SCREENING HIV TEST OFFERED TO PATIENT:YES DATE OFFERED:02/08/2017 TEST ACCEPTED:NO HEP-C TEST OFFERED TO PATIENT:YES DATE OFFERED:02/08/2017 REASON:PATIENT DECLINED TEST ACCEPTED:NO REASON:PATIENT DECLINED OTHERS AT HOME: SPOUSE. HOUSING: OWNS HOME. EDUCATION LEVEL OF EDUCATION:NOT FINISHED HIGH SCHOOL DIET: NO ADDED SALT, LOW FAT, LOW CHOLESTEROL. LANGUAGE LANGUAGES SPOKEN:BELARUSIAN DOMESTIC VIOLENCE DO YOU FEEL SAFE IN YOUR ENVIRONMENT?YES NEW PATIENT PAIN DIARY TODAY'S VISITNOTES FROM 0-10, WHAT LEVEL IS YOUR PAIN TODAY?3 BMI CARE GOAL FOLLOW-UP ABOVE NORMAL BMI FOLLOW-UPDIETARY MANAGEMENT EDUCATION, GUIDANCE, AND COUNSELING RECREATIONAL DRUG USE DRUG USE?NO EXERCISE: NONE. LEARNING BARRIERS / SPECIAL NEEDS CHANGE FROM LAST VISIT?NO BARRIERS TO LEARNING?NO HEARING IMPAIRED?YES VISION IMPAIRED?YES COGNITIVELY IMPAIRED?NO :HEARING AIDES :CORRECTIVE LENSES READINESS TO LEARN?YES LEARNING PREFERENCES?YES :DEMONSTRATION/VERBAL INSTRUCTION LEARNING CAPABILITIES PRESENT?YES EMOTIONAL BARRIERS?NO SPECIAL DEVICES?NO MAIN [place] SCULLION NEEDED?NO PAIN CLINIC PFS, CLERGY, PUBLIC HEALTH REFERRALS PFS REFERRAL NEEDED?NO CLERGY REFERRAL NEEDED?NO PUBLIC HEALTH REFERRAL NEEDED?NO WAS THE PROVIDER NOTIFIED OF ANY PERTINENT INFO? N/A HAS THE PATIENT BEEN EDUCATED REGARDING HIS/HER PLAN OF CARE?YES HAS THE PATIENT BEEN EDUCATED REGARDING PAIN, THE RISK FOR PAIN, THE IMPORTANCE OF EFFECTIVE PAIN MANAGEMENT, AND THE PAIN ASSESSMENT PROCESS?YES LATEX QUESTIONNAIRE LATEX ALLERGY : HAVE YOU EVER DEVELOPED ANY TYPE OF REACTION AFTER HANDLING LATEX PRODUCTS SUCH RUBBER GLOVES, CONDOMS, DIAPHRAGMS, BALLOONS, SOCKS, OR UNDERWEAR?YES LATEX ALLERGY : HAVE YOU EVER DEVELOPED ANY TYPE OF REACTION DURING OR AFTER DENTAL APPOINTMENT, VAGINAL/RECTAL EXAMINATION, SURGICAL PROCEDURE, OR ANY OTHER EXPOSURE?NO - PLEASE INDICATE :RUBBER GLOVES DATE ASKED : 01/02/2019 LATEX RISK : HAVE YOU EVER HAD ANY DIFFICULTY BREATHING OR HIVES AFTER EATING OR HANDLING ANY FRUITS, OR VEGETABLES; SUCH KIWI, BANANAS, STONE FRUITS, OR CHESTNUTSNO LATEX RISK : DO YOU HAVE A PREVIOUS PERSONAL HISTORY OF MORE THAN NINE SURGERIES, SPINA BIFIDA, OR REPEATED CATHERIZATIONS? NO LATEX RISK : ARE YOU FREQUENTLY EXPOSED TO LATEX PRODUCTS IN YOUR OCCUPATION?NO CAFFEINE CAFFEINE USE?YES HOW OFTEN AND HOW MUCH? 2 CUPS COFFEE/DAY ADVANCE DIRECTIVE ADVANCE DIRECTIVE DISCUSSED WITH PATIENT:YES HAS HCP [phone] DAUGHTER ELIZABETH VALLEJO [phone] RESTORATIONIST [id number] MU-ISM MARITAL STATUS: . ALCOHOL SCREENING DID YOU HAVE A DRINK CONTAINING ALCOHOL IN THE PAST YEAR?NO POINTS0 INTERPRETATIONNEGATIVE OCCUPATION: DISABLED. SEXUAL HX HAD SEX IN THE LAST 12 MONTHS (VAGINAL, ORAL, OR ANAL)?NO HAVE YOU EVER HAD AN STD?NO 04/21/18 1420 REVIEWED WITH PT. ADREVEIWED WITH PT 07/05/18 BVREVIEWED WITH PT AND 05/02/19 NLJ. 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 CONSTITUTIONAL: ANY CHANGE IN YOUR MEDICAL CONDITION? YES - STENTS . CHILLS NO . FEVER NO . INFECTION: DO YOU HAVE NEW INFECTIONS? NO . DO YOU HAVE HISTORY OF MRSA? NO . MUSCULOSKELETAL: ANY NEW PATTERNS OF PAIN OR NUMBNESS? YES . GASTROENTEROLOGY: ANY NEW CHANGE IN BOWEL CONTROL? NO . GENITOURINARY: ANY NEW CHANGE IN BLADDER CONTROL? NO . IS THERE A CHANCE YOU COULD BE ? NO . HEMATOLOGY/LYMPH: DO YOU TAKE ANY BLOOD THINNERS? (FOR EXAMPLE- COUMADIN, PLAVIX, AGGRENOX, PLATEL, PRADAXA, OR XARELTO) YES . WHEN WAS YOUR LAST DOSE? DATE: TIME: . NEUROLOGY: HAVE YOU FALLEN IN THE PAST 12 MONTHS? YES . ANY NEW EXTREMITY NUMBNESS OR WEAKNESS? YES . CARDIOLOGY: DO YOU HAVE A PACEMAKER OR DEFIBRILLATOR? NO; 2 STENTS PLACED IN MAY 2019 . RESPIRATORY: HAVE YOU BEEN SICK IN THE PAST WEEK? NO . FEVER NO . FLU LIKE SYMPTOMS? NO . COUGH NO . INTEGUMENTARY: DO YOU HAVE ANY RASHES OR OPEN SORES? NO . ALLERGIC/IMMUNO: ARE YOU ALLERGIC TO IV DYE? NO . ANY NEW ALLERGIES? NO . PSYCHIATRIC: DO YOU HAVE THOUGHTS OF HURTING YOURSELF OR SOMEONE ELSE? NO . ARE YOU ABUSED, NEGLECTED, OR IN AN UNSAFE ENVIRONMENT? NO . ENDOCRINOLOGY: ARE YOU DIABETIC? YES . OTHER: DO YOU NEED ANY PRESCRIPTIONS? YES . IF YES, PLEASE LIST: BUTRANS . ANY NEW PROBLEMS WITH YOUR MEDICATIONS? NO . WHEN DID YOU LAST EAT? ____ . WHEN DID YOU LAST DRINK? ____ . WHAT DID YOU LAST DRINK? ____ . NAME OF PERSON DRIVING YOU HOME? ____ . DO YOU HAVE ANY OTHER QUESTIONS OR CONCERNS NO . VITAL SIGNS WT 184 LBS, HT 69 IN, BMI 27.17 INDEX, BP 135/64 MM HG, HR 62 /MIN, RR 18 /MIN, TEMP 97.6 F, OXYGEN SAT % 96%, NA INITIALS AW 1052, REVIEWED BY: LS. EXAMINATION GENERAL EXAMINATION: LUNGS:LUNG SOUNDS ARE CLEAR. HEART:HEART RATE REGULAR. MUSCULOSKELETAL:*PALPATION: NEGATIVE FOR PAIN OVER L/S SPINE. NEGATIVE FOR PAIN OVER L/S PARASPINALS. MUSCLE STRENGTH TESTING 02/26 BLE. ASSESSMENTS DIABETIC PERIPHERAL NEUROPATHY - E11.42 (PRIMARY) TREATMENT DIABETIC PERIPHERAL NEUROPATHY REFILL BUTRANS PATCH WEEKLY, 20 MCG/HR, 1 PATCH TO SKIN, TRANSDERMAL, APPLY 1 PATCH Q 7 DAYS MDD=1, 30 DAY(S), 4, REFILLS 2 NOTES: [facility] NARCOTIC AGREEMENT WAS UPDATED REVIEWED AND SIGNED TODAY BY THE PATIENT. SEE ATTACHED DOCUMENT FOR FULL DETAILS; SPECIFIC ISSUES WERE REVIEWED: 1) KEEP PAIN MEDS IN THEIR ORIGINAL BOTTLES AND ANY WEEKLY PLANNERS ARE TO BE BROUGHT TO THE PAIN CENTER AT EVERY VISIT. 2) THE PATIENT IS NOT TO INCREASE DOSING OR TIMING OF THEIR PAIN MEDICATION WITHOUT SPECIFIC DIRECTION OF THEIR PAIN CENTERPROVIDER (NOT ER OR OTHER PROVIDERS). 3) ALL PAIN MEDS ARE TO BE KEPT SECURED, IN A LOCKED BOX. 4) NO PAIN MEDS ARE TO BE SHARED WITH ANY OTHER PERSON FOR ANY REASON. 5) NO PAIN MEDS MAY BE TAKEN FROM ANY FRIENDS OR RELATIVES FOR ANY REASON 6) NO MEDS OR SUBSTANCES WHICH ARE NOT LEGAL ARE TO BE USED- NO MARIJUANA, NO COCAINE, AMPHETAMINES, HEROIN, OR OTHERS ARE EVER TO BE USED. 7)URINE TESTING IS DONE TO ACCOUNT FOR MEDS AND SUBSTANCES BEING TAKEN AND WILL BE DONE RANDOMLY. PROCEDURE CODES FA211 ESTABILISHED PATIENT [facility] CHARGE DISPOSITION & COMMUNICATION FOLLOW UP 3 MONTHS ELECTRONICALLY SIGNED BY JORGE HERRERA ON 10/09/2019 AT 09:35 AM EST DISCLAIMER : THIS IS A VISIT SUMMARY EXTRACTED FROM THE [employer] CHART. IT IS NOT A COPY OF THE [employer] PROGRESS NOTE. MTDD
== END ==
LOC: M PAIN 11:00
PROVIDERS: ATTEND Nurse Practitioner Family
DX: E11.42 Type 2 diabetes mellitus with diabetic polyneuropathy (principal); G89.29 Other chronic pain; E78.5 Hyperlipidemia, unspecified; I10 Essential (primary) hypertension; J44.9 Chronic obstructive pulmonary disease, unspecified; Z86.59 Personal history of other mental and behavioral disorders; G25.81 Restless legs syndrome; G47.33 Obstructive sleep apnea (adult) (pediatric); Z88.0 Allergy status to penicillin; Z88.1 Allergy status to other antibiotic agents; Z88.6 Allergy status to analgesic agent; Z88.8 Allergy status to other drugs, medicaments and biological substances; Z91.030 Bee allergy status; Z91.040 Latex allergy status; Z79.4 Long term (current) use of insulin; Z79.01 Long term (current) use of anticoagulants; Z79.899 Other long term (current) drug therapy

== ENCOUNTER 2019-12-12 09:27 | Inpatient (IN) | payer MEDICARE, MEDICAID ==
[~2019-12-12] VITALS: Ht 175.3 cm; Wt 82.8 kg
[~2019-12-12 09:27] MED LIST changes: +BISO5TAB14 PO; -BISO5TAB9 PO; -MECL-68 PO; +MECL1TAB31 PO
--- NOTE | 2019-12-12 10:47 | REP ---
CT brain without contrast: History: Injury in a fall. Comparison brain CT study December 15, 2013. 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 The patient is status post C3 through five cervical discectomy and ventral fusion plating. On bone window settings, there is no evidence of fracture or significant scalp hematoma. Visualized paranasal sinuses are clear. No intraorbital abnormality. There is moderate vascular calcification in the distal internal carotid arteries bilaterally. There is a new area of low density at the cortical medullary junction in the right cerebellar hemisphere. This was not visible in 2014. This consistent with mild encephalomalacia age indeterminate. No other evidence to suggest acute infarction. There are mild small vessel changes. There is no evidence of intracranial hemorrhage. No extra-axial fluid collection is seen. No mass or midline shift is seen. Impression: Low density area at the helms-white junction in the right cerebellar hemisphere. Age indeterminate, infarction suspected. The finding is new from the 2014 prior study. Vascular calcification and mild diffuse atrophy. No other acute abnormality. Electronically Signed by Jordy Garcia MD 12/12/2019 11:55 A
[2019-12-12] MEDS ORDERED: BUME2TAB3 PO (10:49)
[2019-12-12] MEDS ORDERED: GABA-1171 PO (10:49)
[2019-12-12] MEDS ORDERED: COUM1TAB17 PO (10:49)
[2019-12-12] MEDS ORDERED: PLAV1TAB2 PO (10:49)
[2019-12-12] MEDS ORDERED: RENV0.8P PO (10:49)
[2019-12-12] MEDS ORDERED: NITR0.4S14 SL (10:49)
--- NOTE | 2019-12-12 10:53 | REP ---
CT study of the cervical spine without contrast: History: Injury in a fall. Comparison soft-tissue neck radiographs are from January 08, 2019. Technique: Helical scanning is acquired and overlapping 2 mm high resolution axial images were generated and reviewed at bone and soft tissue window settings. Coronal and sagittal multiplanar re-formations images are generated. CT findings: The patient is status post ventral discectomy and fusion plating across the C3-C5 disc levels. There is bridging thick osteophyte formation fusing the C2-3 level anteriorly. There are large discogenic osteophytes anteriorly at C5-6 and C6-7. There is left posterior disc bulging with calcification at C6-7 and central diffuse disc bulging is seen at C5-6. There is mild central canal stenosis at these two levels. There is no evidence of cervical spine element fracture. No skull base fracture is seen. Cervical vertebral body heights are preserved. Alignment is normal. Facet joints are normally aligned bilaterally at each cervical level on multiplanar re-formations images. There is no evidence of intraspinal or paraspinal hematoma. No extra vertebral abnormality is seen. Impression: Fairly advanced degenerative spondylosis changes. Status post ventral discectomy and fusion plating C3-C5. Otherwise negative CT study of the cervical spine without contrast. No fracture seen. Electronically Signed by Jordy Garcia MD 12/12/2019 11:55 A
--- NOTE | 2019-12-12 10:55 | REP ---
Clinical: Cough. Comparison: 01/31/2019. Findings: Stable cardiomegaly and diffuse chronic interstitial changes. No focal consolidation or effusion. No pneumothorax. Skeletal structures intact. Impression: Cardiomegaly. No focal consolidation or effusion. Electronically Signed by Ronal Ro MD 12/12/2019 10:47 A
[2019-12-12] MEDS ORDERED: ALBUTEROL SULFATE 2.5 MG/0.5 ML INH NEB SOLN INH ONE (11:00)
[2019-12-12] MEDS ORDERED: IPRATROPIUM 0.5MG/ALBUTEROL 2.5MG INH SOL UD 3ML (DUONEB)(J7620) NEB ONE (11:00)
[2019-12-12 11:12] LABS: BASO % 0.3 % (0.0-1.0); EOS % 0.1 % (0.0-3.0); HEMATOCRIT 36.4 % (42.0-52.0); HEMOGLOBIN 11.3 g/dl (13.5-17.5); LYMPH # 1.7 10^3/uL (1.5-5.0); LYMPH % 22.6 % (24.0-44.0); MEAN CORPUSCULAR HEMOGLOBIN 32.1 pg (27.0-33.0); MEAN CORPUSCULAR VOLUME 103.4 fl (80.0-96.0); MONO # 0.8 10^3/uL (0.0-0.8); MONO % 10.5 % (0.0-5.0); NEUTROPHILS % 66.2 % (36.0-66.0); PLATELET COUNT, AUTOMATED 150 10^3/uL (150-450); RED BLOOD COUNT 3.52 10^6/uL (4.30-6.10); WHITE BLOOD COUNT 7.5 10^3/uL (4.0-10.0)
[2019-12-12 11:35] LABS: INR 4.91; PARTIAL THROMBOPLASTIN TIME 51.7 SECONDS (25.0-38.4); PROTHROMBIN TIME 46.1 SECONDS (11.8-14.0)
[2019-12-12 11:49] LABS: CALCIUM LEVEL 9.2 MG/DL (8.8-10.2); CK-MB VALUE MASS 1.8 NG/ML (<3.6); CREATININE FOR GFR 4.56 MG/DL (0.70-1.30); GLOMERULAR FILTRATION RATE 13.7 (>49); MB/CK RELATIVE INDEX 1.61 (< OR =4); TROPONIN I 0.05 NG/ML (< 0.10)
[2019-12-12] MEDS ORDERED: AZEL1SPR3 (13:23)
[2019-12-12] MEDS ORDERED: PANT-23 PO (13:23)
[2019-12-12] MEDS ORDERED: FLUO20CA20 PO (13:23)
[2019-12-12] MEDS ORDERED: HUMA100I5 SC ×2 (13:23)
[2019-12-12] MEDS ORDERED: LIDO2.5C15 TOP (13:23)
[2019-12-12] MEDS ORDERED: ISOS30TA4 PO (13:23)
[2019-12-12] MEDS ORDERED: WARF-23 PO (13:23)
[2019-12-12] MEDS ORDERED: BISO5TAB14 PO (13:23)
[2019-12-12] MEDS ORDERED: VITA50005 PO (13:23)
[2019-12-12] MEDS ORDERED: MIRA0.12 PO (13:23)
[2019-12-12] MEDS ORDERED: NITROGLYCERIN 0.4 MG SUBL TABLET SL PRN (15:45)
[2019-12-12] MEDS ORDERED: NORCO, ANEXSIA 5/325MG TABLET (HYDROcodone/ACETAMINOPHEN) PO PRN (15:45)
[2019-12-12] MEDS ORDERED: ALBUTEROL SULFATE 2.5 MG/0.5 ML INH NEB SOLN NEB PRN (15:45)
[2019-12-12] MEDS ORDERED: GLUCOSE 4 GM CHEW TABLET PO PRN (16:00)
[2019-12-12] MEDS ORDERED: GLUCAGON FOR INJ 1 MG VIAL (J1610) SC PRN (16:00)
[2019-12-12] MEDS ORDERED: DEXTROSE 50% 50 ML SYRINGE IV PRN (16:00)
[2019-12-12] MEDS ORDERED: OSELTAMIVIR PHOSPHATE 30MG CAPSULE PO STA ×2 (16:29→16:33)
[2019-12-12] MEDS ORDERED: ACETAMINOPHEN 500 MG TAB As Ordered ONE (16:41)
[2019-12-12] MEDS: ACETAMINOPHEN 500 MG TAB PO PRN (16:43)
[2019-12-12 17:25] VITALS: BP 136/64
[2019-12-12] MEDS: HumaLOG INSULIN (NovoLOG) PER UNIT SC SCH ×2 (17:30→21:00)
[2019-12-12 18:51] VITALS: O2SAT 95
[2019-12-12] MEDS: IPRATROPIUM 0.5MG/ALBUTEROL 2.5MG INH SOL UD 3ML (DUONEB)(J7620) NEB SCH (18:51)
--- NOTE | 2019-12-12 20:22 | ECGEPIP ---
[facility] - ED Test Date: 2019-12-12 Pat Name: YOVANI VALLEJO Department: Room: - Gender: Male Qa Reviewer: nolberto : 1950 Requested By: RAVEN Nation Order Number: [id number] Reading MD: Tatiana Bustamante Measurements Intervals [place] Rate: 61 P: 47 ND: 192 QRS: -38 QRSD: 125 T: 101 QT: 450 QTc: 456 Interpretive Statements SINUS RHYTHM POSSIBLE LEFT ATRIAL ENLARGEMENT MARKED LEFT AXIS DEVIATION MODERATE INTRAVENTRICULAR CONDUCTION DELAY NONSPECIFIC ST & T-WAVE ABNORMALITY Electronically Signed on 12-12-2019 20:22:29 EST by Tatiana Bustamante
[2019-12-12] MEDS: MIRALAX *UNIT DOSE* 17GM PACKET PO SCH (21:06)
[2019-12-12] MEDS: LEVEMIR (INSULIN DETEMIR) 1 UNITS/0.01ML SC SCH (21:07)
[2019-12-12] MEDS: PRAMIPEXOLE (MIRAPEX) 0.125 MG TAB PO SCH (21:07)
[2019-12-12] MEDS: bisoproloL fumarate 5 MG TAB PO SCH (21:07)
[2019-12-12] MEDS: ATORVASTATIN 20 MG TAB PO SCH (21:08)
[2019-12-12] MEDS: TAMSULOSIN 0.4 MG CAP PO SCH (21:08)
[2019-12-12] MEDS: DULoxetine 30 MG CAP (CYMBALTA) PO SCH (21:08)
[2019-12-12] MEDS: OMEGA-3 1000MG CAPSULE PO SCH (21:08)
[2019-12-12 22:00] VITALS: BP 134/53
--- NOTE | 2019-12-12 23:36 | HPEPDOC ---
General Date of Admission Dec 12, 2019 at 15:34 Date of Service: Dec 12, 2019 Attending Physician: GIN SMITH MD Chief Complaint The patient is a 69-year-old male admitted with a reason for visit of Influenza A. 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 Of note, he has felt unwell for a few days and had tried to reach his PCP for an urgent visit but was unable to and had HD yesterday. In the ED, BP was 127/76, HR 56, RR 18, and was afebrile. Initial evaluation showed WBC 7.5, Hgb 11.3, platelets 150, INR 4.91, K 4, Cr 4.56, negative troponin, non ischemic EKG, proBNP 08178 and he was Flu A positive. Given he had a mechanical fall he had a CT of the C-spine that showed degenerative spondylosis and prior C3-C5 fusion, while CT head showed a low intensity area at the severino-white junction in the R cerebellar hemisphere that was new since his last scan in 2013. When asked about the fall, his family reported that he has had recent frequent falls with poor balance for at least a few months. He had a CXR that showed cardiomegaly without acute consolidations or nicolasa pulmonary edema. Home Medications Scheduled Atorvastatin Calcium (Atorvastatin Calcium) 40 Mg Tab, 40 MG PO QPM, (Reported) Azelastine HCl (Azelastine HCl) 0.1% [place].pump, 2 SPRAY NA DAILY, (Reported) Bisoprolol Fumarate (Bisoprolol Fumarate) 5 Mg Tablet, 5 MG PO BID, (Reported) Bumetanide (Bumetanide) 2 Mg Tablet, 2 MG PO DAILY, (Reported) Buprenorphine (Butrans) 20 Mcg/Hr Dis, 20 MCG TD QWEEK, (Reported) APPLIES ON MONDAYS, PATCH IS CURRENTLY APPLIED TO LEFT CHEST. Calcitriol (Calcitriol) 0.25 Mcg Cap, 0.25 MCG PO 3XW, (Reported) RECEIVES AT DIALYSIS WED, WED, WED Clopidogrel Bisulfate (Plavix) 75 Mg Tablet, 75 MG PO DAILY, (Reported) Duloxetine Hcl (Cymbalta) 60 Mg Cap, 60 MG PO QHS, (Reported) Epoetin Lopez (Procrit) 20,000 Unit/Ml Inj, 20,000 UNIT INJ QMONTH, (Reported) Ergocalciferol (Vitamin D2) (Vitamin D2) 50,000 Units Cap, 50,000 UNITS PO QWEEK, (Reported) MONDAYS Fluoxetine Hcl (Fluoxetine HCl) 20 Mg Capsule, 20 MG PO DAILY, (Reported) TAKES AT NOON Fluticasone Propion/Salmeterol (Advair Hfa 230-21 Mcg Inhaler) 1 Aer Aer, 1 PUFF INH BID, (Reported) RX SAY 2 PUFFS BID, PATIENT STATES ONLY DOING 1 PUFF BID Fluticasone Propionate (Fluticasone Propionate) 50 Mcg/Act Spr, 2 SPRAY NA DAILY, (Reported) Gabapentin (Gabapentin) 100 Mg Capsule, 100 MG PO DAILY, (Reported) TAKES AT NOON Glucagon,Human Recombinant (Glucagon Emergency Kit) 1 Mg Kit, 1 MG INJ ASDIRECTED, (Reported) Insulin Glargine (Lantus) 1 Units/0.01 Ml Susp, 8 UNITS SC DAILY, (Reported) Insulin Glargine (Lantus) 1 Units/0.01 Ml Susp, 5 UNITS SC QHS, (Reported) Insulin Lispro (Humalog Kwikpen U-100) 100 Unit/1 Ml Insuln.pen, 7 UNITS SC BID, (Reported) BREAKFAST AND DINNER Insulin Lispro (Humalog Kwikpen U-100) 100 Unit/1 Ml Insuln.pen, 5 UNITS SC DAILY, (Reported) LUNCH Isosorbide Mononitrate (Isosorbide Mononitrate ER) 30 Mg Tab.er.24h, 30 MG PO DAILY, (Reported) Lidocaine/Prilocaine (Lidocaine-Prilocaine Cream) 2.5%/2.5% Cream..g., 1 DOSE TOP 3XW, (Reported) APPLY TO PORT PRIOR TO DIALYSIS [place]-3/Dha/Epa/Fish Oil (Fish Oil 1,000 mg Softgel) 1 Each Capsule, 1,000 MG PO TID, (Reported) Pantoprazole Sodium (Pantoprazole Sodium) 40 Mg Tablet.dr, 40 MG PO DAILY, (Reported) Polyethylene Glycol 3350 (Miralax) 1 Pow Pow, 17 GM PO BID, (Reported) Pramipexole Di-HCl (Mirapex) 0.125 Mg Tablet, 0.125 MG PO QHS, (Reported) Sevelamer Carbonate (Renvela Oral Suspension) 0.8 Gm Powd.pack, 0.8 GRAM PO WM, (Reported) Tamsulosin HCl (Flomax) 0.4 Mg Cap, 0.4 MG PO QHS, (Reported) Warfarin Sodium (Coumadin) 5 Mg Tablet, 5 MG PO 5XW, (Reported) QPM: SUN, , WED, , SAT Warfarin Sodium (Warfarin Sodium) 5 Mg Tablet, 7.5 MG PO 2XW, (Reported) QPM: MON, FRI Scheduled PRN Acetaminophen (Acetaminophen) 500 Mg Tab, 1,000 MG PO Q6H PRN for PAIN, (Reported) Albuterol Sulf (Albuterol Sulfate) 2.5 Mg/3 Ml Nebu, 2.5 MG INH Q4H PRN for SOB/WHEEZING, (Reported) Albuterol Sulfate (Proair Hfa) 108 Mcg/Act Aer, 2 PUFF INH Q4HP PRN for SOB/WHEEZING, (Reported) Hydrocodone/Acetaminophen (Hydrocodone-Acetamin 5-325 mg) 1 Tab Tab, 1 TAB PO Q6H PRN for PAIN, (Reported) Nitroglycerin (Nitroglycerin) 0.4 Mg Tab.subl, 0.4 MG SL NITRO PRN for CHEST PAIN, (Reported) Allergies Coded Allergies: carbamazepine (Verified Allergy, Severe, ANAPHYLAXIX, 01/29/19) phenobarbital (Verified Allergy, Severe, ANAPHYLAXIS, 01/29/19) phenytoin (Verified Allergy, Severe, ANAPHYLAXIS, 01/29/19) Penicillins (Verified Allergy, Intermediate, ITCHING, 01/29/19) bacitracin (Verified Allergy, Intermediate, FACIAL SWELLING, 01/29/19) latex (Verified Allergy, Intermediate, SEVERE RASH AND HIVES, 02/02/19) lisinopril (Verified Allergy, Intermediate, RASH, 01/29/19) meperidine (Verified Allergy, Intermediate, ITCHING, 01/29/19) neomycin (Verified Allergy, Intermediate, FACIAL SWELLING, 01/29/19) pioglitazone (Verified Allergy, Intermediate, EDEMA, 01/29/19) polymyxin B (Verified Allergy, Intermediate, FACIAL SWELLING, 01/29/19) metformin (Verified Allergy, Mild, RASH, 01/29/19) Aminoglycosides (Verified Allergy, Unknown, 01/29/19) NSAIDS (Non-Steroidal Anti-Inflamma (Verified Allergy, Unknown, 01/29/19) gabapentin (Verified Allergy, Unknown, 01/29/19) pregabalin (Verified Allergy, Unknown, 01/29/19) capsaicin (Verified Adverse Reaction, Intermediate, EXCESSIVE BURNING, 01/29/19) dapsone (Verified Adverse Reaction, Intermediate, ANEMIA, 01/29/19) levofloxacin (Verified Adverse Reaction, Intermediate, HEADACHE, 01/29/19) ropinirole (Verified Adverse Reaction, Intermediate, ELEVATED LIVER ENZYMES, 01/29/19) rosuvastatin (Verified Adverse Reaction, Unknown, HEADACHE, 01/29/19) Past Medical History Medical History ESRD on HD MWF, DM, HTN, 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, HTN and anemia Surgical History Back orthopedic fusion surgery Colonoscopy Carpal tunnel release Family History Significant Family History: No pertinent family hx Social History * Smoker: former Smoker Alcohol: Denies Drugs: denies Recent Travel/Sick Contacts: Denies: Recent travel, Recent sick contacts Psychosocial History: Anxiety A-FIB/CHADSVASC A-FIB History Current/History of A-Fib/PAF?: No Current PO Anticoag Therapy: No Age/Risk Factor Scoring CHADSVASC: CHADSVASC Response (Comments) Value Age Risk Factor Age 65-74 years old 1 Gender Risk Factor Male 0 Hx of CHF Yes 1 Hx of HTN Yes 1 Hx of Stroke/TIA/or VTE Yes 2 Hx of Diabetes Yes 1 Hx of Vascular Disease Yes 1 Total 7 Treatment Treatment ordered: Warfarin (held) Reason Anticoagulant not given: Supratherapeutic Warfarin Review of Systems Constitutional: Denies: Chills, Fever, Night Sweats Eyes: Denies: Pain, Vision change ENT: Denies: Head Aches, Ear Pain, Dysphagia Skin: Denies: Rash, Lesions, Breakdown Pulmonary: Reports: Dyspnea; Denies: Cough, Pleuritic Chest Pain Cardiovascular: Reports: Orthopnea, Paroxysmal Noc. Dyspnea, Edema; Denies: Chest Pain Gastrointestinal: Denies: Nausea, Vomiting, Abdominal Pain, Diarrhea Genitourinary: Denies: Dysuria, Frequency, Incontinence, Retention Hematologic: Denies: Bruising, Bleeding Excessively Endocrine: Denies: Polydipsia, Polyphagia, Polyuria, Heat Intolerance, Cold Intolerance, Other Endocrine Sx Musculoskeletal: Denies: Neck Pain, Back Pain, Joint Pain, Muscle Pain, Spasms Neurological: Reports: Incoordination, Confusion; Denies: Change in speech Psych: Reports: Mood Normal; Denies: Depression, Memory Issues Physical Examination General Exam: Positive: Alert, No Acute Distress Eye Exam: Positive: PERRLA, Conjunctiva & lids normal, EOMI; Negative: Sclera icteric ENT Exam: Positive: Atraumatic, Mucous membr. moist/pink, Pharynx Normal Neck Exam: Positive: Supple; Negative: JVD, thyromegaly Chest Exam: Positive: Clear to auscultation, Normal air movement Heart Exam: Positive: Rate Normal, Regular Rhythm, Normal S1, Normal S2; Negative: Murmurs, Rubs Telemetry: Positive: No significant arrhythmia, Sinus Abdomen Exam: Positive: Normal bowel sounds, Soft; Negative: Tenderness, Hepatospenomegaly Extremity Exam: Positive: Edema (ankle edema bilaterally), Normal pulses; Negative: Clubbing, Cyanosis Skin Exam: Positive: Lesion (has dime to quarter size raised scaby lesions with central ulceration) Neuro Exam: Positive: Normal Speech, Strength at 5/5 X4 ext, Sensation Intact, Cranial Nerves 3-12 NL; Negative: Normal Gait (unsteady) Psych Exam: Positive: Anxiety, Oriented x 3; Negative: Memory Intact Vital Signs Vital Signs Date Time Temp Pulse Resp B/P (MAP) Pulse Ox O2 Delivery O2 Flow Rate FiO2 12/12/19 21:07 73 134/54 12/12/19 18:59 18 12/12/19 18:51 95 Room Air 21 12/12/19 17:25 98.8 Laboratory Data Labs 24H Laboratory Tests 2 12/12/19 10:57: Immature Granulocyte % (Auto) 0.3, Neutrophils (%) (Auto) 66.2H, Lymphocytes (%) (Auto) 22.6L, Monocytes (%) (Auto) 10.5H, Eosinophils (%) (Auto) 0.1, Basophils (%) (Auto) 0.3, Neutrophils # (Auto) 5.0, Lymphocytes # (Auto) 1.7, Monocytes # (Auto) 0.8, Eosinophils # (Auto) 0.0, Basophils # (Auto) 0.0, Nucleated Red Blood Cells % (auto) 0.0, Prothrombin Time 46.1H, Prothromb Time International Ratio 4.91, Activated Partial Thromboplast Time 51.7H, Anion Gap 8, Glomerular Filtration Rate 13.7L, Calcium Level 9.2, Total Creatine Kinase 112, Creatine Kinase MB 1.8, Creatine Kinase MB Relative Index 1.61, Troponin I 0.05, EK-Upf-E-Type Natriuretic Peptide [id number] 12/12/19 16:55: Bedside Glucose (Misc Panel) 55L 12/12/19 17:36: Bedside Glucose (Misc Panel) 65L 12/12/19 20:24: Bedside Glucose (Misc Panel) 215H CBC/BMP Laboratory Tests 12/12/19 10:57 Microbiology Microbiology 12/12/19 Blood Culture, Received Pending 12/12/19 Respiratory Virus Panel (PCR) ([facility]) - Final, Complete Influenza A H1-200812/12/19 Blood Culture, Received Pending Assessment/Plan 69 yo M with ESRD on HD MWF, DM, HTN, 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 Mechanical fall -CT head and CT C-spine was without fractures or bleeding -CT showing history of cerebellar infarct prior likely contributing to imbalance and frequent falls -PT/OT evaluation SOB: 2/2 flu A. CXR without acute PNA however exam with significant rhonchi without wheezing -supportive q6h duonebs with q4hp albuterol -Tamiflu, with renal dosing Subacute vs. old cerebellar infarct: -on ASA/plavix -PT, OT ESRD: -consult nephrology DM: -home levemir, SSI, FSBG AC/HS, hypoglycemia protocol, CAD s/p PCI: -recent stents in 04/2019 so continue ASA/plavix CHF: with nicolasa volume overload and elvated proBNP -volume managed via HD with nephrology -strict I/Os -2g Na diet History of DVTs with Supratherapeutic INR: likely dietary with poor PO while on warfarin -hold warfarin -daily INR until within 2-3 range HTN -continue home meds Depression: -continue home meds Plan / VTE VTE Prophylaxis Ordered?: No VTE Exclusion Mechanical Proph: Other (supratheraputic INR) VTE Exclusion Pharmacological: Other GIN SMITH MD Dec 12, 2019 23:36
[2019-12-13] MEDS: IPRATROPIUM 0.5MG/ALBUTEROL 2.5MG INH SOL UD 3ML (DUONEB)(J7620) NEB SCH ×4 (01:52→21:11)
[2019-12-13] MEDS ORDERED: EMLA CREAM 5GM (LIDOCAINE/PRILOCAINE) TOP PRN (04:45)
[2019-12-13 05:53] LABS: HEMATOCRIT 33.6 % (42.0-52.0); HEMOGLOBIN 10.7 g/dl (13.5-17.5); MEAN CORPUSCULAR HEMOGLOBIN 31.9 pg (27.0-33.0); MEAN CORPUSCULAR HGB CONC 31.8 g/dl (32.0-36.5); MEAN CORPUSCULAR VOLUME 100.3 fl (80.0-96.0); PLATELET COUNT, AUTOMATED 144 10^3/uL (150-450); RED BLOOD COUNT 3.35 10^6/uL (4.30-6.10); WHITE BLOOD COUNT 9.3 10^3/uL (4.0-10.0)
[2019-12-13] MEDS: MIRALAX *UNIT DOSE* 17GM PACKET PO SCH ×2 (05:55→21:31)
[2019-12-13] MEDS: OMEGA-3 1000MG CAPSULE PO SCH ×3 (05:55→21:31)
[2019-12-13] MEDS: bisoproloL fumarate 5 MG TAB PO SCH ×2 (05:55→21:31)
[2019-12-13 06:00] VITALS: BP 120/61
[2019-12-13 06:04] LABS: INR 4.91; PROTHROMBIN TIME 46.1 SECONDS (11.8-14.0)
[2019-12-13 06:29] LABS: ALBUMIN 2.8 GM/DL (3.2-5.2); BILIRUBIN,TOTAL 0.9 MG/DL (0.2-1.0); CALCIUM LEVEL 8.5 MG/DL (8.8-10.2); CREATININE FOR GFR 5.44 MG/DL (0.70-1.30); GLOMERULAR FILTRATION RATE 11.2 (>49); MAGNESIUM LEVEL 2.1 MG/DL (1.8-2.4); POTASSIUM SERUM 4.9 MEQ/L (3.5-5.1); TOTAL PROTEIN 6.7 GM/DL (6.4-8.2)
[2019-12-13] MEDS: AZELASTINE 137MCG NASAL SPY 30 ML (ASTELIN) SCH (07:58)
[2019-12-13] MEDS: BUMETANIDE 1 MG TAB PO SCH (08:00)
[2019-12-13] MEDS: PANTOPRAZOLE 40MG TAB (PROTONIX) PO SCH (08:00)
[2019-12-13] MEDS: HumaLOG INSULIN (NovoLOG) PER UNIT SC SCH ×4 (08:00→21:00)
[2019-12-13] MEDS: LEVEMIR (INSULIN DETEMIR) 1 UNITS/0.01ML SC SCH ×2 (08:00→21:00)
[2019-12-13] MEDS: (RENVELA) SEVELAMER **CARBONate** 800 MG TAB PO SCH ×3 (08:00→18:20)
[2019-12-13] MEDS: CALCITRIOL 0.25 MCG CAP (S0169) PO SCH (08:01)
[2019-12-13] MEDS: CLOPIDOGREL 75 MG TAB PO SCH (08:01)
[2019-12-13] MEDS: ISOSORBIDE MON. (IMDUR) 30 MG XR TAB PO SCH (08:01)
[2019-12-13] MEDS ORDERED: ONDANSETRON 4MG/2ML VIAL (J2405) IV PRN (11:00)
[2019-12-13] MEDS: GABAPENTIN 100 MG CAP PO SCH (12:43)
[2019-12-13] MEDS: FLUoxetine 20 MG CAP PO SCH (12:43)
[2019-12-13 13:55] VITALS: BP 122/62
[2019-12-13] MEDS ORDERED: HEPARIN 1,000 UNITS/ML 10ML VIAL (FOR RADIOLOGY& DIALYSIS ONLY)(J1644-10) IV ONE (15:15)
[2019-12-13] MEDS ORDERED: LIDOCAINE 1% SDV 5 ML VIAL SQ ONE (15:15)
[2019-12-13] MEDS: ACETAMINOPHEN 500 MG TAB PO PRN (15:19)
--- NOTE | 2019-12-13 16:34 | IPNPDOC ---
Text Note Date of Service The patient was seen on 12/13/19. NOTE General: Alert, No Acute Distress Eye: PERRLA, Conjunctiva & lids normal, EOMI, anicteric ENT: MMM, Pharynx Normal Neck: Supple Chest: Rhonchi throughout with upper airway transmitted sounds, no wheezing this morning, and no crackles Heart: RRR, no mrg Abdomen: Normal bowel sounds, Soft, NTND Extremity Exam: Bilateral ankle edema, WWP, palpable LE pulses Skin: has dime to quarter size raised scaby lesions with central opening Neuro: Normal Speech, Strength at 5/5 X4 ext, Sensation Intact, Cranial Nerves 3-12 NL Psych Exam: Oriented x 3 Vital Signs Vital Signs Date Time Temp Pulse Resp B/P (MAP) Pulse Ox O2 Delivery O2 Flow Rate FiO2 12/12/19 21:07 73 134/54 12/12/19 18:59 18 12/12/19 18:51 95 Room Air 21 12/12/19 17:25 98.8 Laboratory Data: reviewed -FluA positive, WBC 9.3, Hgb 10.7, Hct 33.6, platelets 144, Na 132, K4.9, Cr 5.44, procal 1.62 69 yo M with ESRD on HD MWF, DM, HTN, 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 Mechanical fall -CT head and CT C-spine was without fractures or bleeding -CT showing history of cerebellar infarct prior likely contributing to imbalance and frequent falls -ongoing PT/OT evaluation SOB: 2/2 flu A. CXR without acute PNA however exam with significant rhonchi without wheezing -supportive q6h duonebs with q4hp albuterol -Tamiflu, with renal dosing Subacute vs. old cerebellar infarct: -on ASA/plavix -PT, OT ESRD: -nephrology onboard, having HD today DM: -continue home levemir, SSI, FSBG AC/HS, hypoglycemia protocol, CAD s/p PCI: -recent stents in 04/2019 so continue ASA/plavix CHF: with nicolasa volume overload and elvated proBNP -volume managed via HD with nephrology -strict I/Os -2g Na diet History of DVTs with Supratherapeutic INR: likely dietary with poor PO while on warfarin -hold warfarin -daily INR until within 2-3 range, continues to be elevated at this time, continue to hold HTN -continue home meds Depression: -continue home meds VS,Fishbone, I+O VS, Fishbone, I+O Laboratory Tests 12/13/19 05:34 Vital Signs Date Time Temp Pulse Resp B/P (MAP) Pulse Ox O2 Delivery O2 Flow Rate FiO2 12/13/19 13:55 98.6 64 18 122/62 (82) 94 Room Air 12/12/19 18:51 21 I&O- Last 24 Hours up to 6 AM 12/13/19 06:00 Intake Total 640 ml Output Total 225 ml Balance 415 ml GIN SMITH MD Dec 13, 2019 16:34
[2019-12-13 18:15] VITALS: BP 120/55
[2019-12-13] MEDS: OSELTAMIVIR PHOSPHATE 30MG CAPSULE PO SCH (18:20)
--- NOTE | 2019-12-13 18:45 | CR ---
DATE OF CONSULTATION: 12/13/2019 REQUESTING PHYSICIAN: Dr. Umm De Souza CONSULTING PHYSICIAN: Dr. Ramirez REASON FOR CONSULTATION: Management of end-stage renal disease on hemodialysis. HISTORY OF PRESENT ILLNESS: Nile Castillo is well-known to me he is a 69-year-old male with a past medical history of end-stage renal disease on hemodialysis on a Wednesday, Wednesday, Wednesday schedule via right arm arteriovenous (AV) fistula, insulin-dependent diabetes, hypertension, chronic anemia, secondary hyperparathyroidism of renal origin, chronic obstructive pulmonary disease (COPD), benign prostatic hypertrophy (BPH), peripheral neuropathy, depression and other comorbid conditions mentioned below. Patient reports he has not been feeling well since the weekend. On Wednesday, he felt nauseous and weak and short of breath. He also had a mechanical fall on the day of admission. He was last dialyzed on Wednesday with reported 2.7 kg of fluid removed. However, he continued to feel poorly and generally weak and so presented to the emergency room, where he was found to be hemodynamically stable and afebrile, with an elevated INR and elevated BNP and tested positive for the flu. He had CT of the cervical spine and the head in view of mechanical fall, which showed an interval infarction in the right cerebellar hemisphere sometime after 2013, age indeterminate. Patient is seen and examined this morning at the bedside. He offers no new complaints. He is scheduled for dialysis this afternoon. PAST MEDICAL HISTORY: 1. End-stage renal disease on hemodialysis on a Wednesday, Wednesday, Wednesday schedule. 2. Hypertension. 3. Insulin dependent diabetes. 4. History of recurrent deep venous thromboses (DVTs) on chronic Coumadin. 5. Anemia of chronic renal failure. 6. Secondary hyperparathyroidism renal origin. 7. History of depression. 8. Chronic obstructive pulmonary disease (COPD). 9. Dyslipidemia. 10. Peripheral neuropathy. 11. Gastroesophageal reflux disease (GERD). 12. Benign prostatic hypertrophy (BPH). HOME MEDICATIONS: - atorvastatin 40 mg by mouth every evening - azelastine two sprays daily - bisoprolol 5 mg by mouth twice a day - bumetanide 2 mg by mouth daily - calcitriol 0.25 mcg by mouth three times a week - Plavix 75 mg by mouth daily - Procrit with dialysis - ergocalciferol 50,000 units by mouth weekly - fluoxetine 20 mg by mouth daily - gabapentin 100 mg by mouth daily - insulin - isosorbide mononitrate extended release 30 mg by mouth daily - fish oil 1 gram by mouth three times a day - Protonix 40 mg by mouth daily - Mirapex 0.125 mg by mouth at bedtime - Renvela 0.8 grams by mouth with meals - Flomax 0.4 mg by mouth at bedtime - Coumadin as directed. ALLERGIES: Are lengthy including CARBAMAZEPINE, PHENOBARBITAL, PHENYTOIN, PENICILLIN, BACITRACIN, LATEX, LISINOPRIL, MEPERIDINE, NEOMYCIN, PIOGLITAZONE, POLYMYXIN, METFORMIN, AMINOGLYCOSIDE, NONSTEROIDAL ANTI-INFLAMMATORY DRUGS (NSAIDS) , GABAPENTIN, PREGABALIN, CAPSAICIN, DAPSONE, LEVAQUIN, ROPINIROLE, ROSUVASTATIN. PAST SURGICAL HISTORY: 1. Back orthopedic fusion surgery. 2. Colonoscopy. 3. Carpal tunnel release. 4. AV fistula placement. FAMILY HISTORY: Denies family history of renal failure requiring dialysis. SOCIAL HISTORY: , lives with his . Denies smoking, alcohol or drugs. REVIEW OF SYSTEMS: CONSTITUTIONAL: Reports generalized weakness, fatigue and malaise. Denies fevers or chills. EYES: Denies visual changes or tearing. EARS, NOSE AND THROAT (ENT): Denies odynophagia or rhinorrhea. SKIN: He reports a rash on his arms that has been present for some time. He denies pruritus. PULMONARY: He reports some shortness of breath. Denies productive cough. CARDIAC: He reports leg edema. He denies chest pain. GASTROINTESTINAL: He reports decreased appetite and occasional constipation denies diarrhea. GENITOURINARY: Still makes urine. Denies dysuria or hematuria. HEMATOLOGICAL: Reports chronic anticoagulant use and anemia of chronic renal failure. ENDOCRINE: He reports secondary hyperparathyroidism and insulin-dependent diabetes. MUSCULOSKELETAL: He reports recent falls at home including a mechanical fall on day of admission. NEUROLOGIC: He denies seizures or syncope. PSYCHIATRIC: He reports depression. Remainder review of systems is negative or as per history of present illness (HPI) VITAL SIGNS:: Temperature 98.5, pulse 60, respiratory rate 18, blood pressure 120/61, saturating 92% on room air. GENERAL: The patient is seen sitting out of bed to the chair, awake, alert, oriented, in no apparent distress. is present at the bedside. Extraocular muscles are intact. Tongue is moist. There is a scrape on the left rastafari where he fell. Sclerae are anicteric. Jugular veins are mildly elevated. Heart sounds are regular. S1, S2. There is 1 to 2+ edema in the legs. Lungs are clear to auscultation. No crackle or rale. Abdomen is soft, obese and nontender. EXTREMITIES: There is a fistula present in the right arm with thrill and bruit and the legs show 1 to 2+ edema. SKIN: There are diffuse raised lesions on his arms. NEUROLOGIC: He is oriented times three, interactive and conversational. LABORATORY DATA: White count 9.3, hemoglobin 10.7, platelet 144. Sodium 132, potassium 4.9, bicarbonate 28. Respiratory viral panel was positive for influenza A. Blood cultures are negative times 24 hours for two sets. Chest x-ray 12/12/2019 shows cardiomegaly without consolidation or effusion. CT head 12/12/2019 showed age indeterminate lesion in the right cerebellar hemisphere that is new since 2013. INPATIENT MEDICATIONS: - Tylenol as needed - DuoNeb 3 mL nebulized every 6 hours - Lipitor 40 mg by mouth every morning - bisoprolol 5 mg by mouth twice a day - bumetanide 2 mg by mouth daily - calcitriol 0.25 mcg by mouth Wednesday, Wednesday, Wednesday - Plavix 75 mg by mouth daily - Cymbalta 60 mg by mouth at bedtime - Prozac 20 mg by mouth daily - gabapentin 100 mg by mouth daily - insulin, - Imdur 30 mg by mouth daily - fish oil 1 capsule by mouth three times a day - Zofran as needed - Tamiflu 30 mg by mouth Wednesday, Wednesday, Wednesday - Protonix 40 mg by mouth daily - MiraLax 1 packet by mouth twice a day - Mirapex 0.125 mg by mouth at bedtime - Renvela 800 mg by mouth with meals - Flomax 0.4 mg by mouth at bedtime - vitamin D 50,000 units by mouth once weekly PROBLEMS: 1. End-stage renal disease on hemodialysis on a Wednesday, Wednesday, Wednesday schedule. Patient will be dialyzed today with goal fluid removal of 1.5 liters. His electrolytes and volume status are fairly acceptable. Continue with current dialysis prescription. 2. Status post mechanical fall. CT head and CT spine noted. Age indeterminate cerebellar infarction noted. Physical therapy is going to evaluate him. 3. Shortness of breath. Respiratory viral panel positive for influenza A. He is receiving general supportive care with bronchodilators and is started on renally dosed Tamiflu 4. Congestive heart failure. Echocardiogram from January 2019 reviewed with preserved left ventricular ejection fraction. Volume status is managed by three times weekly Hemodialysis. Continue fluid restriction. Will remove 1.5 liters with treatment today and he has some residual renal function and continues on Bumex as well. 5. History of DVTs with supratherapeutic INR. Coumadin is on hold. 6. Hypertension. Blood pressures are acceptable and no changes are being made to the current regimen, which include bisoprolol and Imdur. 7. Scattered skin lesions. Primary team to see of he can have a biopsy while he is in-house Thank you for involving me in the care of Mr. Castillo. I will be happy to follow him along with you.
[2019-12-13] MEDS: DULoxetine 30 MG CAP (CYMBALTA) PO SCH (21:30)
[2019-12-13] MEDS: ATORVASTATIN 20 MG TAB PO SCH (21:30)
[2019-12-13] MEDS: TAMSULOSIN 0.4 MG CAP PO SCH (21:31)
[2019-12-13] MEDS: PRAMIPEXOLE (MIRAPEX) 0.125 MG TAB PO SCH (21:31)
[2019-12-13 22:00] VITALS: BP 123/55
[2019-12-14] MEDS: IPRATROPIUM 0.5MG/ALBUTEROL 2.5MG INH SOL UD 3ML (DUONEB)(J7620) NEB SCH ×4 (01:46→19:28)
[2019-12-14 06:00] VITALS: BP 140/69
[2019-12-14 06:15] LABS: HEMATOCRIT 34.6 % (42.0-52.0); HEMOGLOBIN 11.1 g/dl (13.5-17.5); MEAN CORPUSCULAR HEMOGLOBIN 32.5 pg (27.0-33.0); MEAN CORPUSCULAR HGB CONC 32.1 g/dl (32.0-36.5); MEAN CORPUSCULAR VOLUME 101.2 fl (80.0-96.0); PLATELET COUNT, AUTOMATED 141 10^3/uL (150-450); RED BLOOD COUNT 3.42 10^6/uL (4.30-6.10); WHITE BLOOD COUNT 8.7 10^3/uL (4.0-10.0)
[2019-12-14 06:26] LABS: INR 2.58; PROTHROMBIN TIME 27.5 SECONDS (11.8-14.0)
[2019-12-14 06:47] LABS: ALBUMIN 2.8 GM/DL (3.2-5.2); CALCIUM LEVEL 8.5 MG/DL (8.8-10.2); CREATININE FOR GFR 3.9 MG/DL (0.70-1.30); GLOMERULAR FILTRATION RATE 16.4 (>49); POTASSIUM SERUM 4.1 MEQ/L (3.5-5.1)
--- NOTE | 2019-12-14 07:31 | IPNPDOC ---
Text Note Date of Service The patient was seen on 12/14/19. NOTE Subjective: -Feels better, no complaints this morning, had HD yesterday General: Alert, No Acute Distress Eye: PERRLA, Conjunctiva & lids normal, EOMI, anicteric ENT: MMM, Pharynx Normal Neck: Supple Chest: Moving air well, much reduced upper airway transmitted sounds, no whe ezing this morning and no crackles Heart: RRR, no mrg Abdomen: Normal bowel sounds, Soft, NTND Extremity Exam: Bilateral ankle edema, WWP, palpable LE pulses Skin: has dime to quarter size raised scaby lesions with central opening Neuro: Normal Speech, Strength at 5/5 X4 ext, Sensation Intact, Cranial Nerves 3-12 NL Psych Exam: Oriented x 3 Laboratory Data: reviewed -FluA positive on admission. 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 Mechanical fall -CT head and CT C-spine was without fractures or bleeding -CT showing history of cerebellar infarct prior likely contributing to imbalance and frequent falls -ongoing PT/OT evaluation SOB: 2/2 flu A. CXR without acute PNA however exam with significant rhonchi without wheezing -supportive q6h duonebs with q4hp albuterol -Tamiflu, with renal dosing Subacute vs. old cerebellar infarct: -on ASA/plavix -PT, OT ESRD: -nephrology onboard, had HD yesterday DM: -continue home levemir, SSI, FSBG AC/HS, hypoglycemia protocol, CAD s/p PCI: -recent stents in 04/2019 so continue ASA/plavix HFpEF: with nicolasa volume overload and elevated proBNP -volume managed via HD with nephrology, remains on baseline bumex -strict I/Os -2g Na diet History of DVTs with Supratherapeutic INR: likely dietary with poor PO while on warfarin -hold warfarin -daily INR until within 2-3 range, continues to be elevated at this time, continue to hold HTN -continue home meds Depression: -continue home meds Skin lesions: -trying to get hold of derm to see if he can get a punch biopsy while he is inpatient. Will attempt again today VS,Sanjaybone, I+O VS, Sanjaybone, I+O Laboratory Tests 12/14/19 05:29 Vital Signs Date Time Temp Pulse Resp B/P (MAP) Pulse Ox O2 Delivery O2 Flow Rate FiO2 12/14/19 06:00 99.4 67 18 140/69 (92) 94 Room Air 12/12/19 18:51 21 I&O- Last 24 Hours up to 6 AM 12/14/19 06:00 Intake Total 1380 ml Output Total 1700 ml Balance -320 ml GIN SMITH MD Dec 14, 2019 07:31
[2019-12-14] MEDS: MIRALAX *UNIT DOSE* 17GM PACKET PO SCH ×2 (07:57→21:25)
[2019-12-14] MEDS: bisoproloL fumarate 5 MG TAB PO SCH ×2 (07:58→21:24)
[2019-12-14] MEDS: CLOPIDOGREL 75 MG TAB PO SCH (07:58)
[2019-12-14] MEDS: ISOSORBIDE MON. (IMDUR) 30 MG XR TAB PO SCH (07:58)
[2019-12-14] MEDS: (RENVELA) SEVELAMER **CARBONate** 800 MG TAB PO SCH ×3 (07:58→17:10)
[2019-12-14] MEDS: BUMETANIDE 1 MG TAB PO SCH (07:58)
[2019-12-14] MEDS: HumaLOG INSULIN (NovoLOG) PER UNIT SC SCH ×4 (07:59→21:00)
[2019-12-14] MEDS: AZELASTINE 137MCG NASAL SPY 30 ML (ASTELIN) SCH (07:59)
[2019-12-14] MEDS: PANTOPRAZOLE 40MG TAB (PROTONIX) PO SCH (07:59)
[2019-12-14] MEDS: LEVEMIR (INSULIN DETEMIR) 1 UNITS/0.01ML SC SCH ×2 (07:59→21:22)
[2019-12-14] MEDS: OMEGA-3 1000MG CAPSULE PO SCH ×3 (07:59→21:21)
[2019-12-14] MEDS: FLUoxetine 20 MG CAP PO SCH (12:56)
[2019-12-14] MEDS: GABAPENTIN 100 MG CAP PO SCH (12:56)
[2019-12-14 14:00] VITALS: BP 139/68
--- NOTE | 2019-12-14 18:59 | IPN ---
DATE: 12/14/2019 Mr. Castillo is seen first in the hallway working with physical therapy and again in his room. He reports that he is feeling much better today. His breathing is feeling better. He is not having any issues walking in the halls. He had no issues overnight, and he is still waiting for dermatology to come see him for his skin lesions. OBJECTIVE: VITAL SIGNS: Temperature 98.8, pulse 67, respiratory rate 19, blood pressure 139/68, pulse oximetry 96% on room air. He underwent dialysis yesterday. He had 1500 mL removed. Otherwise, he is net positive 1020 mL, and he is making 425 mL of urine overnight. His current weight is 82.3 kg. His body mass index (BMI) is 26.8. GENERAL: He is sitting up at the bedside. He is calm, cooperative in no acute distress and very pleasant. HEAD: Normocephalic, atraumatic. HEENT: Extraocular movements are intact. Pupils are equally round and reactive to light. His mucous membranes are moist. His neck is supple with no thyromegaly and no lymphadenopathy. CHEST: He has even chest rise. LUNGS: Clear to auscultation bilaterally with no adventitious breath sounds appreciated. HEART: He is regular rate and rhythm with no murmurs, rubs, or gallops. Normal S1 and normal S2. ABDOMEN: Soft and nontender to palpation. Positive bowel sounds. No masses or organomegaly. EXTREMITIES: He has 1+ pitting edema in the lower extremities bilaterally; otherwise no clubbing or cyanosis. SKIN: He does have several skin lesions on his arms and legs with central scabbing and excoriation. The skin lesions do not appear to be infectious. They are not erythematous. They are raised. LYMPHATIC: He has no enlarged lymph nodes in the cervical, posterior auricular, and femoral chains. LABORATORY DATA: His CBC today demonstrates white blood cell count of 8.7, hemoglobin 11.1, hematocrit 34.6, and a platelet count of 141. Chemistries demonstrate a sodium of 132, potassium 4.1, chloride 95, BUN 28, and creatinine 3.90. GFR is estimated at 16%. His AST is 70, his ALT is 73, and his alkaline phosphatase is 140. Today his PT is 27.5, and his INR is 2.58. Most recently, on his respiratory viral panel he was positive for influenza A/H1, 2009. He has no new imaging. PROBLEMS: 1. End-stage renal disease, on hemodialysis Wednesday, Wednesday, Wednesday. We will continue him with his schedule and will dialyze him tomorrow. His goal fluid removal of 1.5 liters. All of his electrolytes and volume status are completely acceptable. We will continue this as prescribed. 2. Status post mechanical fall. Negative head CT and CT spine, although there was an age-indeterminate cerebellar infarction. He will continue working with physical therapy. It is to my knowledge that he did well with physical therapy this morning. 3. Shortness of breath secondary to influenza A. He is being treated symptomatically with bronchodilators and has been taking Tamiflu. 4. Congestive heart failure with last echocardiogram in January 2019 with preserved left ventricular ejection fraction. Volume status is managed by hemodialysis. We will continue him on a fluid restriction. We will remove 1.5 liters with his treatment and continue him on Bumex. 5. History of deep vein thromboses (DVTs) with supratherapeutic INR. Coumadin is on hold at this point in time. 6. Hypertension. Blood pressure has been acceptable. No changes to his current regimen. Will continue his bisoprolol and Imdur. 7. Scattered skin lesions. Dermatology to see. Thank you for involving me in the care of Mr. Castillo and would be happy to follow him along with you. JOVANNA
[2019-12-14] MEDS: TAMSULOSIN 0.4 MG CAP PO SCH (21:21)
[2019-12-14] MEDS: ATORVASTATIN 20 MG TAB PO SCH (21:21)
[2019-12-14] MEDS: PRAMIPEXOLE (MIRAPEX) 0.125 MG TAB PO SCH (21:21)
[2019-12-14] MEDS: DULoxetine 30 MG CAP (CYMBALTA) PO SCH (21:21)
[2019-12-14 22:00] VITALS: BP 140/67
[2019-12-15] MEDS: IPRATROPIUM 0.5MG/ALBUTEROL 2.5MG INH SOL UD 3ML (DUONEB)(J7620) NEB SCH ×4 (00:51→20:01)
[2019-12-15] MEDS: (RENVELA) SEVELAMER **CARBONate** 800 MG TAB PO SCH ×3 (05:14→19:05)
[2019-12-15] MEDS: CALCITRIOL 0.25 MCG CAP (S0169) PO SCH (05:14)
[2019-12-15] MEDS: OMEGA-3 1000MG CAPSULE PO SCH ×3 (05:14→20:53)
[2019-12-15] MEDS: BUMETANIDE 1 MG TAB PO SCH (05:14)
[2019-12-15] MEDS: PANTOPRAZOLE 40MG TAB (PROTONIX) PO SCH (05:15)
[2019-12-15] MEDS: CLOPIDOGREL 75 MG TAB PO SCH (05:15)
[2019-12-15] MEDS: ISOSORBIDE MON. (IMDUR) 30 MG XR TAB PO SCH (05:15)
[2019-12-15] MEDS: MIRALAX *UNIT DOSE* 17GM PACKET PO SCH ×2 (05:15→20:53)
[2019-12-15] MEDS: bisoproloL fumarate 5 MG TAB PO SCH ×2 (05:15→20:53)
[2019-12-15] MEDS: AZELASTINE 137MCG NASAL SPY 30 ML (ASTELIN) SCH (05:16)
[2019-12-15 06:00] VITALS: BP 140/66
[2019-12-15 07:08] LABS: HEMOGLOBIN 10.6 g/dl (13.5-17.5); MEAN CORPUSCULAR HEMOGLOBIN 32.1 pg (27.0-33.0); MEAN CORPUSCULAR HGB CONC 32.1 g/dl (32.0-36.5); PLATELET COUNT, AUTOMATED 143 10^3/uL (150-450); WHITE BLOOD COUNT 8.3 10^3/uL (4.0-10.0)
[2019-12-15 07:12] LABS: INR 1.77; PROTHROMBIN TIME 20.3 SECONDS (11.8-14.0)
[2019-12-15 07:23] LABS: ALBUMIN 2.5 GM/DL (3.2-5.2); CALCIUM LEVEL 8.2 MG/DL (8.8-10.2); CREATININE FOR GFR 4.81 MG/DL (0.70-1.30); GLOMERULAR FILTRATION RATE 12.9 (>49); POTASSIUM SERUM 4.3 MEQ/L (3.5-5.1); TOTAL PROTEIN 6.6 GM/DL (6.4-8.2)
[2019-12-15] MEDS: HumaLOG INSULIN (NovoLOG) PER UNIT SC SCH ×4 (07:30→20:54)
[2019-12-15] MEDS: LEVEMIR (INSULIN DETEMIR) 1 UNITS/0.01ML SC SCH ×2 (10:51→20:54)
[2019-12-15] MEDS: FLUoxetine 20 MG CAP PO SCH (11:01)
[2019-12-15] MEDS: GABAPENTIN 100 MG CAP PO SCH (11:01)
[2019-12-15] MEDS: predniSONE 20 MG TAB PO SCH (11:01)
[2019-12-15 14:00] VITALS: BP 137/53
[2019-12-15] MEDS ORDERED: HEPARIN 1,000 UNITS/ML 10ML VIAL (FOR RADIOLOGY& DIALYSIS ONLY)(J1644-10) IV ONE (14:00)
[2019-12-15] MEDS ORDERED: LIDOCAINE 1% SDV 5 ML VIAL SQ ONE (14:00)
--- NOTE | 2019-12-15 16:57 | IPNPDOC ---
Text Note Date of Service The patient was seen on 12/15/19. NOTE Subjective: -[place] about the same this morning. However reported that today is not a good day. She is upset about his progressive moments of confusion that all the doctors have known about. I discussed that it is unfortunately not an acute issue that I will be able to solve within a few days of a hospital stay but will check all acute etiologies that may exacerbate confusion and are reversible. General: Alert, No Acute Distress Eye: PERRLA, Conjunctiva & lids normal, EOMI, anicteric ENT: MMM, Pharynx Normal Neck: Supple Chest: Rhonchi, poor air movement this morning, tachypneic, rare scattered wheezing Heart: RRR, no mrg Abdomen: Normal bowel sounds, Soft, NTND Extremity Exam: Bilateral ankle edema, WWP, palpable LE pulses Skin: has dime to quarter size raised scaby lesions with central opening Neuro: Normal Speech, Strength at 5/5 X4 ext, Sensation Intact, Cranial Nerves 3-12 NL Psych Exam: Oriented x 3 Laboratory Data: reviewed -FluA positive on admission. Labs stable. 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 Mechanical fall -CT head and CT C-spine was without fractures or bleeding -CT showing history of cerebellar infarct prior likely contributing to imbalance and frequent falls -ongoing PT/OT evaluation SOB: 2/2 flu A. CXR without acute PNA however exam with significant rhonchi without wheezing -supportive q6h duonebs with q4hp albuterol -Tamiflu, with renal dosing -Add pred 40 given regression of his pulmonary exam to tightness and wheezing today -follow up procalcitonin AMS: appears old but concerned about its progression -CT head was with subacute to chronic infarct -Lytes are generally within baseline -ammonia is normal -BUN is 44 and getting dialysis today Subacute vs. old cerebellar infarct: -on ASA/plavix -PT, OT ESRD: -nephrology onboard, had HD yesterday DM: -continue home levemir, SSI, FSBG AC/HS, hypoglycemia protocol, CAD s/p PCI: -recent stents in 04/2019 so continue ASA/plavix HFpEF: with nicolasa volume overload and elevated proBNP -volume managed via HD with nephrology, remains on baseline bumex -strict I/Os -2g Na diet History of DVTs with Supratherapeutic INR: likely dietary with poor PO while on warfarin so warfarin was initially held -daily INR, restart coumadin now HTN -continue home meds Depression: -continue home meds Skin lesions: -trying to get hold of derm to see if he can get a punch biopsy while he is inpatient. Left voicemail at derm clinic VS,Simi, I+O VS, Viraje, I+O Laboratory Tests 12/15/19 06:50 Vital Signs Date Time Temp Pulse Resp B/P (MAP) Pulse Ox O2 Delivery O2 Flow Rate FiO2 12/15/19 14:00 97.4 65 18 137/53 (81) 95 Room Air 12/12/19 18:51 21 I&O- Last 24 Hours up to 6 AM 12/15/19 06:00 Intake Total 1260 ml Balance 1260 ml GIN SMITH MD Dec 15, 2019 16:57
[2019-12-15] MEDS: OSELTAMIVIR PHOSPHATE 30MG CAPSULE PO SCH (19:04)
[2019-12-15] MEDS: WARFARIN SOD 7.5 MG TAB PO SCH (19:05)
--- NOTE | 2019-12-15 20:34 | IPN ---
DATE: 12/15/2019 SUBJECTIVE: The patient is seen and examined at the bedside in dialysis this morning. He is calm; however, his is present and notes that he was "confused" this morning. The patient himself endorses the confusion stating that he could not remember his date of . He said that he was seeing things and very nonchalantly asks "Can you not see those bugs on the [place]?" The patient states that his breathing is doing much better. He is not having any nausea, vomiting or diarrhea. Per the patient and his , the primary team is working him up for his pneumonia, given that his lung examination appears to be worsened today. Otherwise, he is working well with physical therapy (PT). He is tolerating his hemodialysis and he has no other complaints this morning. OBJECTIVE: VITAL SIGNS: Temperature 97.4, maximum temperature (t-max) in the last 24 hours of 100.4, pulse 65, respiratory rate of 18, blood pressure 137/53, pulse oximetry of 95% on room air. Input and output: He has been net positive 480 mL. He last had hemodialysis on 12/13/2019, which was Wednesday, where 1500 mL were pulled. His current weight is 83.6 kg. GENERAL: He is sitting up. He is calm, cooperative and in no acute distress. He is speaking in full sentences. Extraocular movements are intact. Pupils are equally round and reactive to light. Head is normocephalic, atraumatic. NECK: Supple with no thyromegaly and no lymphadenopathy. CHEST: He has even chest rise. LUNGS: He has some wheezing throughout all lung melissa, worsened at the bases. Otherwise, no adventitious breath sounds are appreciated. HEART: Regular rate and rhythm with no murmurs, rubs or gallops. ABDOMEN: Soft and nontender to palpation with normoactive bowels sounds and without masses or organomegaly. EXTREMITIES: He has 1+ pitting edema bilaterally. SKIN: He has several lesions throughout his arms and his legs, as described in previous notes. PSYCHIATRIC: His mood and affect are normal. He is reportedly having active hallucinations. NEUROLOGIC: His cranial nerves II through XII are intact with no obvious focal deficits. LABORATORIES: Today his complete blood count (CBC) demonstrates a white blood cell count of 8.3, hemoglobin 10.6, hematocrit 33, and platelet count of 143. His chemistries demonstrate a sodium of 129, potassium 4.3, chloride 94, BUN 44, and creatinine 4.81. His GFR is estimated at 12%. His fasting glucose is found to be 50. His ammonia level was found to be 24. AST is down to 59 from 70 yesterday, ALT is 63, and procalcitonin was found to be 1.52. He has a sputum culture that is still pending but has many white blood cells and gram-positive cocci in pairs and chains. No new imaging has been obtained. PROBLEMS: 1. End stage renal disease on hemodialysis Wednesday, Wednesday and Wednesday. He will get his dialysis per his usual regimen today. His goal fluid removal is 1.5 liters. All of his electrolytes and volume status are acceptable at this time. His sodium is somewhat low at 129. 2. Status post mechanical fall. He had a negative head CT and CT spine, although there was some age indeterminate cerebellar infarction. Continue working with physical therapy (PT). 3. Shortness of breath secondary to influenza A and now concerning for pneumonia. His procalcitonin was high when it was checked yesterday. I believe he is undergoing further workup for this pneumonia as directed by his primary team. It does not appear that the primary team has put him on any antibiotics at this point in time, however, he is on prednisone 40 mg daily for the time being and he has gotten one out of three doses of his course of Tamiflu renally dosed. 4. Congestive heart failure (CHF) with last echo in January 2019 with preserved left ventricular ejection fraction. His volume status is currently being managed by his hemodialysis. We will continue his 2 mg daily of Bumex. 5. History of deep vein thrombosis (DVT) with supratherapeutic INR. Today, his INR was found to be 1.77 and his Coumadin was continued at his usual home dose. We will defer this management to the primary team. 6. Hypertension. Blood pressures have been acceptable. No changes in his current regimen. We will continue his bisoprolol and Imdur. 7. Scattered skin lesion. Bookbinder Chief to see. Thank you for involving us in the care of Mr. Castillo. We will be happy to follow along with you. JOVANNA
[2019-12-15] MEDS: DULoxetine 30 MG CAP (CYMBALTA) PO SCH (20:53)
[2019-12-15] MEDS: PRAMIPEXOLE (MIRAPEX) 0.125 MG TAB PO SCH (20:53)
[2019-12-15] MEDS: TAMSULOSIN 0.4 MG CAP PO SCH (20:53)
[2019-12-15] MEDS: ATORVASTATIN 20 MG TAB PO SCH (20:53)
[2019-12-15 22:00] VITALS: BP 142/63
[2019-12-16] MEDS: IPRATROPIUM 0.5MG/ALBUTEROL 2.5MG INH SOL UD 3ML (DUONEB)(J7620) NEB SCH ×4 (01:36→20:02)
[2019-12-16 05:48] LABS: HEMATOCRIT 31.6 % (42.0-52.0); HEMOGLOBIN 10.5 g/dl (13.5-17.5); MEAN CORPUSCULAR HEMOGLOBIN 32.8 pg (27.0-33.0); MEAN CORPUSCULAR HGB CONC 33.2 g/dl (32.0-36.5); MEAN CORPUSCULAR VOLUME 98.8 fl (80.0-96.0); PLATELET COUNT, AUTOMATED 112 10^3/uL (150-450); WHITE BLOOD COUNT 7.2 10^3/uL (4.0-10.0)
[2019-12-16 05:58] LABS: INR 1.55; PROTHROMBIN TIME 18.3 SECONDS (11.8-14.0)
[2019-12-16 06:00] VITALS: BP 127/62
[2019-12-16 06:15] LABS: CALCIUM LEVEL 8.9 MG/DL (8.8-10.2); CREATININE FOR GFR 3.56 MG/DL (0.70-1.30); GLOMERULAR FILTRATION RATE 18.3 (>49); POTASSIUM SERUM 3.8 MEQ/L (3.5-5.1)
[2019-12-16 06:16] LABS: ALBUMIN 2.5 GM/DL (3.2-5.2); BILIRUBIN,TOTAL 0.9 MG/DL (0.2-1.0); TOTAL PROTEIN 6.4 GM/DL (6.4-8.2)
--- NOTE | 2019-12-16 08:39 | REP ---
Portable chest, 08:29 p.m., single AP view the patient upright: Comparison is 12/12/2019. The lung melissa are clear except for chronic mild interstitial changes. The cardiac size is enlarged, unchanged. . The leonie, mediastinum, and skeletal structures are unremarkable. Impression: Chronic interstitial change. Cardiomegaly. No interval change. Electronically Signed by Curtis Levy MD 12/16/2019 08:31 A
[2019-12-16] MEDS: LEVEMIR (INSULIN DETEMIR) 1 UNITS/0.01ML SC SCH ×2 (08:45→20:38)
[2019-12-16] MEDS: (RENVELA) SEVELAMER **CARBONate** 800 MG TAB PO SCH ×3 (08:45→17:25)
[2019-12-16] MEDS: HumaLOG INSULIN (NovoLOG) PER UNIT SC SCH ×4 (08:45→20:38)
[2019-12-16] MEDS: ISOSORBIDE MON. (IMDUR) 30 MG XR TAB PO SCH (08:46)
[2019-12-16] MEDS: bisoproloL fumarate 5 MG TAB PO SCH ×2 (08:46→20:37)
[2019-12-16] MEDS: predniSONE 20 MG TAB PO SCH (08:46)
[2019-12-16] MEDS: MIRALAX *UNIT DOSE* 17GM PACKET PO SCH ×2 (08:46→20:37)
[2019-12-16] MEDS: OMEGA-3 1000MG CAPSULE PO SCH ×3 (08:47→20:37)
[2019-12-16] MEDS: BUMETANIDE 1 MG TAB PO SCH (08:47)
[2019-12-16] MEDS: CLOPIDOGREL 75 MG TAB PO SCH (08:47)
[2019-12-16] MEDS: AZELASTINE 137MCG NASAL SPY 30 ML (ASTELIN) SCH (08:47)
[2019-12-16] MEDS: PANTOPRAZOLE 40MG TAB (PROTONIX) PO SCH (08:47)
[2019-12-16] MEDS: FLUoxetine 20 MG CAP PO SCH (12:31)
[2019-12-16] MEDS: GABAPENTIN 100 MG CAP PO SCH (12:31)
[2019-12-16 14:00] VITALS: BP 121/59
[2019-12-16] MEDS ORDERED: ANALGESIC BALM CRM 120 GM TOP PRN (16:30)
[2019-12-16] MEDS: WARFARIN SOD 5 MG TAB PO SCH (17:25)
--- NOTE | 2019-12-16 18:05 | IPN ---
DATE: 12/16/2019 SUBJECTIVE: The patient was seen and examined at the bedside this morning. He is calm. He has no complaints. He does not endorse any further confusion as he did yesterday. He reports that he tolerated dialysis well. His breathing is somewhat improved, otherwise no changes overnight. OBJECTIVE: VITAL SIGNS: Temperature 97.5, pulse 74, blood pressure 128/60, pulse oximetry 95% on room air. Intake and output: Net positive 720 mL. He had dialysis yesterday and two liters were pulled off. He is not making any urine. GENERAL: He is laying in bed, calm, cooperative, no acute distress, very pleasant gentleman. Head is normocephalic, atraumatic. HEENT: His extraocular movements are intact. His pupils are equally round and reactive to light. His mucous membranes are moist. Neck is supple with no thyromegaly and no lymphadenopathy. CHEST: He has even chest rise. Lungs: He is rhonchorous throughout all lung melissa, but otherwise no adventitious breath sounds are appreciated. HEART: Regular rate and rhythm with no murmurs, rubs, or gallops. Normal S1, normal S2. ABDOMEN: Soft and nontender to palpation with normoactive bowel sounds. No masses. No organomegaly. EXTREMITIES: Trace pitting edema bilaterally. SKIN: He does have several lesions throughout his arms and legs that are raised and erythematous. LYMPHATICS: He has no enlarged lymph nodes in posterior cervical, posterior regular, and femoral chains. PSYCHIATRIC: He is awake, alert, and oriented times three. He has a normal mood and normal affect. NEUROLOGIC: Cranial nerves II-XII are intact with no focal deficits. LABORATORY DATA: Today his CBC demonstrates a white blood cell count of 7.2, hemoglobin 10.5, hematocrit 31.6, platelet count 112. His metabolic panel demonstrates a sodium of 129, potassium of 3.8, carbon dioxide of 28, BUN of 28 down from 44 yesterday, and a creatinine of 3.56 down from 4.81 yesterday. His liver enzymes: AST 42, ALT 55, alkaline phosphatase 121. He recently had a chest x-ray done this morning at 8:29 a.m. which demonstrated lung melissa are clear except for chronic mild interstitial changes. His cardiac size is enlarged and unchanged. The leonie, mediastinum, and skeletal structures are unremarkable. Impression: Chronic interstitial change, cardiomegaly, and no interval change. PLAN: 1. End-stage renal disease on hemodialysis Wednesday, Wednesday, Wednesday. He had dialysis and tolerated it well yesterday and had two liters removed. His volume status is acceptable and his sodium is still somewhat low at 129 but the rest of his electrolytes are acceptable. 2. Status post mechanical fall. Continue working with physical therapy (PT). 3. Shortness of breath secondary to influenza A and now concerning for pneumonia. Chest x-ray is not convincing for new pneumonia. The patient's primary team has started him on prednisone and he is completing his course of Tamiflu that is renally dosed. 4. Congestive heart failure with last echo January of 2019 with preserved left ventricular ejection fraction. Volume status is managed by dialysis. Continue 2 mg daily of Bumex. 5. History of deep venous thrombosis prophylaxis with supratherapeutic INR. Today his INR was found to be 1.55. This is managed per the primary team. 6. Hypertension. Patient's blood pressure has been within normal limits. We will make no changes to the current regimen and continue his bisoprolol and Imdur. 7. Scattered skin lesions. [employer] Application Developer to see. Thank you for involving us in the care of Mr. Castillo. We would be happy to follow along with you in his stay at the hospital. My faculty preceptor for this patient encounter was physically present during the encounter and was fully available. All aspects of the patient interview, examination, medical decision making process, and medical care plan development were reviewed and approved by the faculty preceptor. The faculty preceptor is aware and concurs with the plan as stated in the body of this note and will attest to such by his/her cosignature.
--- NOTE | 2019-12-16 19:55 | IPNPDOC ---
Text Note Date of Service The patient was seen on 12/16/19. NOTE Subjective: -Doing well this morning, was sitting up in chair eating breakfast -remains on room air General: Alert, No Acute Distress Eye: PERRLA, Conjunctiva & lids normal, EOMI, anicteric ENT: MMM, Pharynx Normal Neck: Supple Chest: Scattered rhonchi improved from prior, no wheezing this morning, and no crackles Heart: RRR, no mrg Abdomen: Normal bowel sounds, Soft, NTND Extremity Exam: Bilateral ankle edema, WWP, palpable LE pulses Skin: has dime to quarter size raised scaby lesions with central opening Neuro: Normal Speech, Strength at 5/5 X4 ext, Sensation Intact, Cranial Nerves 3-12 NL Psych Exam: Oriented x 3 but is impulsive and high order cognitive reasoning is diminished Laboratory Data: reviewed 69 yo M with ESRD on HD MWF, DM, HTN, 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 Mechanical fall -CT head and CT C-spine was without fractures or bleeding -CT showing history of cerebellar infarct prior likely contributing to imbalance and frequent falls -ongoing PT/OT evaluation SOB: 2/2 flu A. CXR without acute PNA however exam with significant rhonchi without wheezing -supportive q6h duonebs with q4hp albuterol -Tamiflu, with renal dosing -continue prednisone, day 2 Subacute vs. old cerebellar infarct: -on ASA/plavix -PT, OT ESRD: -nephrology onboard, having HD today DM: -continue home levemir, SSI, FSBG AC/HS, hypoglycemia protocol, CAD s/p PCI: -recent stents in 04/2019 so continue ASA/plavix CHF: with nicolasa volume overload and elvated proBNP -volume managed via HD with nephrology -strict I/Os -2g Na diet History of DVTs with Supratherapeutic INR: likely dietary with poor PO while on warfarin -restarted warfarin, subthepeutic at this time after holding on admission for supratherapeutic INR, daily monitoring HTN -continue home meds Depression: -continue home meds Cognitive decline: AOx3 but with poor executive function and easily distracted. very concerned, reports that it has been progressive and thinks its due to lack of oxygen, which I explained to not be the case. -ammonia wnl -CT head with old cerebellar infarct -Electrolytes wnl -Suspect a progressive dementia Rash: left voicemail in derm clinic yesterday requesting a consult as I had failed to reach out for derm consult. VS,Fishbone, I+O VS, Fishbone, I+O Laboratory Tests 12/16/19 05:36 Vital Signs Date Time Temp Pulse Resp B/P (MAP) Pulse Ox O2 Delivery O2 Flow Rate FiO2 12/16/19 14:00 98.0 65 19 121/59 (79) 93 Room Air 12/12/19 18:51 21 I&O- Last 24 Hours up to 6 AM 12/16/19 06:00 Intake Total 1140 ml Output Total 2000 ml Balance -860 ml GIN SMITH MD Dec 16, 2019 19:55
[2019-12-16] MEDS: DULoxetine 30 MG CAP (CYMBALTA) PO SCH (20:37)
[2019-12-16] MEDS: ATORVASTATIN 20 MG TAB PO SCH (20:37)
[2019-12-16] MEDS: TAMSULOSIN 0.4 MG CAP PO SCH (20:38)
[2019-12-16] MEDS: PRAMIPEXOLE (MIRAPEX) 0.125 MG TAB PO SCH (20:44)
[2019-12-16 22:00] VITALS: BP 133/69
[2019-12-17] MEDS: IPRATROPIUM 0.5MG/ALBUTEROL 2.5MG INH SOL UD 3ML (DUONEB)(J7620) NEB SCH ×4 (01:45→19:53)
[2019-12-17 06:00] VITALS: BP 109/61
[2019-12-17 07:13] LABS: HEMATOCRIT 33.3 % (42.0-52.0); HEMOGLOBIN 10.8 g/dl (13.5-17.5); MEAN CORPUSCULAR HGB CONC 32.4 g/dl (32.0-36.5); MEAN CORPUSCULAR VOLUME 98.8 fl (80.0-96.0); PLATELET COUNT, AUTOMATED 145 10^3/uL (150-450); RED BLOOD COUNT 3.37 10^6/uL (4.30-6.10); WHITE BLOOD COUNT 8.5 10^3/uL (4.0-10.0)
[2019-12-17 07:24] LABS: INR 1.97; PROTHROMBIN TIME 22.2 SECONDS (11.8-14.0)
[2019-12-17 07:39] LABS: ALBUMIN 2.6 GM/DL (3.2-5.2); BILIRUBIN,TOTAL 0.8 MG/DL (0.2-1.0); CALCIUM LEVEL 8.2 MG/DL (8.8-10.2); CREATININE FOR GFR 4.52 MG/DL (0.70-1.30); GLOMERULAR FILTRATION RATE 13.9 (>49); POTASSIUM SERUM 4.4 MEQ/L (3.5-5.1); TOTAL PROTEIN 6.2 GM/DL (6.4-8.2)
[2019-12-17] MEDS: MIRALAX *UNIT DOSE* 17GM PACKET PO SCH ×2 (09:00→21:17)
[2019-12-17] MEDS: LEVEMIR (INSULIN DETEMIR) 1 UNITS/0.01ML SC SCH ×2 (09:26→21:21)
[2019-12-17] MEDS: HumaLOG INSULIN (NovoLOG) PER UNIT SC SCH ×4 (09:26→21:00)
[2019-12-17] MEDS: ISOSORBIDE MON. (IMDUR) 30 MG XR TAB PO SCH (09:27)
[2019-12-17] MEDS: OMEGA-3 1000MG CAPSULE PO SCH ×3 (09:27→21:24)
[2019-12-17] MEDS: bisoproloL fumarate 5 MG TAB PO SCH ×2 (09:27→21:24)
[2019-12-17] MEDS: PANTOPRAZOLE 40MG TAB (PROTONIX) PO SCH (09:27)
[2019-12-17] MEDS: BUMETANIDE 1 MG TAB PO SCH (09:28)
[2019-12-17] MEDS: predniSONE 20 MG TAB PO SCH (09:28)
[2019-12-17] MEDS: CLOPIDOGREL 75 MG TAB PO SCH (09:28)
[2019-12-17] MEDS: (RENVELA) SEVELAMER **CARBONate** 800 MG TAB PO SCH ×3 (09:28→17:25)
[2019-12-17] MEDS: AZELASTINE 137MCG NASAL SPY 30 ML (ASTELIN) SCH (09:31)
--- NOTE | 2019-12-17 11:05 | IPNPDOC ---
Text Note Date of Service The patient was seen on 12/17/19. NOTE Subjective: -Doing well this morning, eating breakfast -remains on room air -Overnight was noticed to have gained some weight over the last few days and was placed on fluid restriction--> is due for HD tomorrow General: Alert, No Acute Distress Eye: PERRLA, Conjunctiva & lids normal, EOMI, anicteric ENT: MMM, Pharynx Normal Neck: Supple Chest: Scattered rhonchi improving, no wheezing this morning, and no crackles Heart: RRR, no mrg Abdomen: Normal bowel sounds, Soft, NTND Extremity Exam: Bilateral LE edema, R>L that he reports to be his baseline, WWP, palpable LE pulses Skin: has dime to quarter size raised scaby lesions with central opening Neuro: Normal Speech, Strength at 5/5 X4 ext, Sensation Intact, Cranial Nerves 3-12 NL Psych Exam: Oriented x 3 but is impulsive and high order cognitive reasoning is diminished Laboratory Data: reviewed 69 yo M with ESRD on HD MWF, DM, HTN, 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 Mechanical fall -CT head and CT C-spine was without fractures or bleeding -CT showing history of cerebellar infarct prior likely contributing to imbalance and frequent falls -ongoing PT/OT evaluation SOB: 2/2 flu A. CXR without acute PNA however exam with significant rhonchi without wheezing -supportive q6h duonebs with q4hp albuterol -Tamiflu, with renal dosing -continue prednisone, day 2 Subacute vs. old cerebellar infarct: -on ASA/plavix -PT, OT ESRD: -nephrology onboard, having HD today DM: -continue home levemir, SSI, FSBG AC/HS, hypoglycemia protocol, CAD s/p PCI: -recent stents in 04/2019 so continue ASA/plavix CHF: with nicolasa volume overload and elvated proBNP -volume managed via HD with nephrology -strict I/Os -2g Na diet -was placedon fluid restriction to 1.5L/24h History of DVTs with Supratherapeutic INR: likely dietary with poor PO while on warfarin -restarted warfarin, subthepeutic at this time after holding on admission for supratherapeutic INR, daily monitoring HTN -continue home meds Depression: -continue home meds Cognitive decline: AOx3 but with poor executive function and easily distracted. very concerned, reports that it has been progressive and thinks its due to lack of oxygen, which I explained to not be the case. -ammonia wnl -CT head with old cerebellar infarct -Electrolytes wnl -Suspect a progressive dementia Rash: left voicemail in derm clinic on Wednesday requesting a consult as I had failed to reach out for derm consult. VS,Fishbone, I+O VS, Fishbone, I+O Laboratory Tests 12/17/19 06:48 Vital Signs Date Time Temp Pulse Resp B/P (MAP) Pulse Ox O2 Delivery O2 Flow Rate FiO2 12/17/19 09:27 133/70 12/17/19 09:27 72 12/17/19 06:00 97.8 18 96 Room Air 12/12/19 18:51 21 I&O- Last 24 Hours up to 6 AM 12/17/19 06:00 Intake Total 1320 ml Balance 1320 ml GIN SMITH MD Dec 17, 2019 11:05
[2019-12-17] MEDS: GABAPENTIN 100 MG CAP PO SCH (13:03)
[2019-12-17] MEDS: FLUoxetine 20 MG CAP PO SCH (13:03)
[2019-12-17 14:00] VITALS: BP 120/72
--- NOTE | 2019-12-17 16:27 | IPN ---
DATE: 12/17/2019 Mr. Castillo is seen this morning on his bedside. He is sitting in the chair and feels about the same. His is also present in the room, who is complaining that the patient has been very confused, though the patient seems to be about the same as usual. The patient denies any nausea, vomiting, dyspnea or chest pain. He has no fever or chills. PHYSICAL EXAMINATION: Temperature 97.8 degrees Fahrenheit, heart rate 72 per minute and respiratory rate 18 per minute. Blood pressure 133/70 mmHg and oxygen saturation 98% on room air. Head is atraumatic. Neck is supple and jugular venous distention (JVD) not abnormally elevated sitting upright. His heart sounds are regular and lungs with few basilar crackles. Abdomen: Soft and nontender and bowel sounds are normal. Extremities: Without any cyanosis or clubbing. Neurologically, he seems to be at his baseline mentation without a focal deficit. Today's labs show WBC count 8.5, hemoglobin 10.8 and hematocrit 33.3. Platelets 145. Sodium 129, potassium 4.4, CO2 28, BUN 40 and creatinine 4.52. Glucose 139 and calcium 8.2. PROBLEMS: 1. End-stage renal disease. The patient is regularly dialyzed on Wednesday, Wednesday and Wednesday schedule. We will dialyze him tomorrow. At present, there is no emergent indication for dialysis today. 2. Hyponatremia. This is essentially unchanged and stable. We anticipate improvement in his sodium level with dialysis. 3. Anemia. His anemia is stable at present and does not need any urgent intervention. 4. Congestive heart failure. The patient does have history of chronic congestive heart failure and we will try to remove about 2-3 liters of fluid as tolerated. His last chest x-ray did show some cardiomegaly and chronic interstitial changes, but no effusion or gross volume overload. 5. Altered mentation. The patient's feels that the patient has increased confusion; however, to my assessment he seems to be at about his baseline. 6. Influenza. The patient did test positive for influenza and is currently with improving symptoms. We will continue to watch him closely.
[2019-12-17] MEDS: WARFARIN SOD 5 MG TAB PO SCH (17:26)
[2019-12-17] MEDS: DULoxetine 30 MG CAP (CYMBALTA) PO SCH (21:21)
[2019-12-17] MEDS: TAMSULOSIN 0.4 MG CAP PO SCH (21:21)
[2019-12-17] MEDS: ATORVASTATIN 20 MG TAB PO SCH (21:21)
[2019-12-17] MEDS: PRAMIPEXOLE (MIRAPEX) 0.125 MG TAB PO SCH (21:21)
[2019-12-17 22:00] VITALS: BP 122/78
[2019-12-18] MEDS: IPRATROPIUM 0.5MG/ALBUTEROL 2.5MG INH SOL UD 3ML (DUONEB)(J7620) NEB SCH ×4 (01:34→20:00)
[2019-12-18] MEDS: predniSONE 20 MG TAB PO SCH (05:33)
[2019-12-18] MEDS: PANTOPRAZOLE 40MG TAB (PROTONIX) PO SCH (05:33)
[2019-12-18] MEDS: CLOPIDOGREL 75 MG TAB PO SCH (05:34)
[2019-12-18] MEDS: BUMETANIDE 1 MG TAB PO SCH (05:35)
[2019-12-18] MEDS: CALCITRIOL 0.25 MCG CAP (S0169) PO SCH (05:35)
[2019-12-18] MEDS: OMEGA-3 1000MG CAPSULE PO SCH ×3 (05:35→23:06)
[2019-12-18] MEDS: (RENVELA) SEVELAMER **CARBONate** 800 MG TAB PO SCH ×3 (05:36→16:53)
[2019-12-18] MEDS: ISOSORBIDE MON. (IMDUR) 30 MG XR TAB PO SCH (05:40)
[2019-12-18] MEDS: bisoproloL fumarate 5 MG TAB PO SCH ×2 (05:40→23:05)
[2019-12-18 06:00] VITALS: BP 111/52
[2019-12-18 06:25] LABS: INR 2.63; PROTHROMBIN TIME 27.9 SECONDS (11.8-14.0)
[2019-12-18] MEDS: HumaLOG INSULIN (NovoLOG) PER UNIT SC SCH ×4 (08:48→21:00)
[2019-12-18] MEDS: AZELASTINE 137MCG NASAL SPY 30 ML (ASTELIN) SCH (08:48)
[2019-12-18] MEDS: LEVEMIR (INSULIN DETEMIR) 1 UNITS/0.01ML SC SCH ×2 (08:48→23:13)
[2019-12-18] MEDS: MIRALAX *UNIT DOSE* 17GM PACKET PO SCH ×4 (08:49→23:13)
[2019-12-18] MEDS ORDERED: VITAMIN D 50,000 UNITS CAPSULE (ERGOCALCIFEROL 1.25MG) PO SCH (09:00)
[2019-12-18 10:29] LABS: HEMOGLOBIN 10.1 g/dl (13.5-17.5); MEAN CORPUSCULAR HEMOGLOBIN 32.5 pg (27.0-33.0); MEAN CORPUSCULAR HGB CONC 32.6 g/dl (32.0-36.5); MEAN CORPUSCULAR VOLUME 99.7 fl (80.0-96.0); PLATELET COUNT, AUTOMATED 138 10^3/uL (150-450); RED BLOOD COUNT 3.11 10^6/uL (4.30-6.10); WHITE BLOOD COUNT 7.5 10^3/uL (4.0-10.0)
[2019-12-18 10:33] LABS: ALBUMIN 2.5 GM/DL (3.2-5.2); CALCIUM LEVEL 8.2 MG/DL (8.8-10.2); CREATININE FOR GFR 5.42 MG/DL (0.70-1.30); GLOMERULAR FILTRATION RATE 11.3 (>49); PHOSPHORUS LEVEL 4.2 MG/DL (2.5-4.9); POTASSIUM SERUM 4.8 MEQ/L (3.5-5.1)
[2019-12-18] MEDS: FLUoxetine 20 MG CAP PO SCH (11:36)
[2019-12-18] MEDS: GABAPENTIN 100 MG CAP PO SCH (11:36)
[2019-12-18 14:00] VITALS: BP 124/66
--- NOTE | 2019-12-18 16:37 | IPNPDOC ---
Text Note Date of Service The patient was seen on 12/18/19. NOTE Subjective: Doing well this morning, remains on room air. He is due for dial ysis today Physical examination General: Alert, No Acute Distress Eye: PERRLA, Conjunctiva & lids normal, EOMI, anicteric ENT: MMM, Pharynx Normal Neck: Supple Chest: Scattered rhonchi improving, no wheezing this morning, and no crackles Heart: RRR, no mrg Abdomen: Normal bowel sounds, Soft, NTND Extremity Exam: Bilateral LE edema, R>L that he reports to be his baseline, WWP, palpable LE pulses Skin: has dime to quarter size raised scaby lesions with central opening Neuro: Normal Speech, Strength at 5/5 X4 ext, Sensation Intact, Cranial Nerves 3-12 NL Psych Exam: Oriented x 3 but is impulsive and high order cognitive reasoning is diminished Laboratory Data: reviewed 69 yo M with ESRD on HD MWF, DM, HTN, 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 1. Mechanical fall. The patient has been awaiting a frequent falls. CT head and CT C-spine was without fractures or bleeding CT showing history of cerebellar infarct prior likely contributing to imbalance and frequent falls, ongoing PT/OT evaluation 2. SOB: 2/2 flu A. CXR without acute PNA however exam with significant rhonchi without wheezing, supportive q6h duonebs with q4hp albuterol, Tamiflu, with renal dosing -continue prednisone, day 3. We'll discontinue on discharge 3. Subacute vs. old cerebellar infarct: on ASA/plavix PT, OT 4. ESRD: nephrology onboard, having HD today 5. DM: continue home levemir, SSI, FSBG AC/HS, hypoglycemia protocol, 6. CAD s/p PCI: recent stents in 04/2019 so continue ASA/plavix 7. CHF: with nicolasa volume overload and elvated proBNP volume managed via HD with nephrology, strict I/Os , 2g Na diet. Also on Bumex 2 mg daily for additional dialysis 8. History of DVTs . On warfarin. He initially was having supratherapeutic INR 9.HTN . continue home meds The patient has a medical condition, especially his imbalance which requires positioning of his body in the way which is not visible with an ordinary bed. Due to the his body habitus. It does not always visible to do it in an ordinary bed. Patient also requires had an elevation of greater than 30 because of volume issues, especially his congestive heart failure. He would require hospital bed and will try to arrange that for him. VS,Fishbone, I+O VS, Fishbone, I+O Laboratory Tests 12/18/19 05:33 Vital Signs Date Time Temp Pulse Resp B/P (MAP) Pulse Ox O2 Delivery O2 Flow Rate FiO2 12/18/19 14:00 97.3 61 18 124/66 (85) 97 Room Air 12/12/19 18:51 21 I&O- Last 24 Hours up to 6 AM 12/18/19 06:00 Intake Total 1590 ml Output Total 0 ml Balance 1590 ml LAUREN DALE MD Dec 18, 2019 16:37
[2019-12-18] MEDS: WARFARIN SOD 7.5 MG TAB PO SCH (16:53)
--- NOTE | 2019-12-18 20:58 | IPN ---
DATE: 12/18/2019 Mr. Castillo is seen this morning on his bedside. He is sitting at the edge of bed and denies any new complaints. His is present in the room. The patient has no dyspnea, chest pain, nausea or vomiting. The patient's reports some jerky movements and he is already scheduled to see neurologist on 12/29/2019 as an outpatient. PHYSICAL EXAMINATION: Temperature 97.4 degrees Fahrenheit, heart rate 62 per minute and respiratory rate 18 per minute. Blood pressure 111/52 mmHg and oxygen saturation 97% on room air. His head is atraumatic. Neck supple and without JVD or thyroid enlargement. Heart sounds are irregular in rhythm and lungs with few basilar crepitations. Abdomen soft and nontender and bowel sounds are normal. Extremities have no cyanosis or clubbing. Neurologically he seems at his baseline mentation without a focal deficit. Today's labs show WBC count 7.5, hemoglobin 10.1 and hematocrit 31. Sodium 128, potassium 4.8, CO2 26, BUN 55 and creatinine 5.42. PROBLEMS: 1. End-stage renal disease. The patient is regularly dialyzed on Wednesday, Wednesday and Wednesday schedule. He is due for dialysis today and will be scheduled for this afternoon. 2. Congestive heart failure. His volume status seems reasonably well-compensated and will continue to manage it with dialysis. We will plan to remove about 2.5 liters of fluid today as tolerated. 3. Hyponatremia. This is related to end-stage renal disease and probably also related to flu. This will improve with dialysis and no other intervention is indicated. 4. Anemia. At present his anemia is stable and we will continue to monitor closely. No urgent intervention is indicated. DISPOSITION: I have informed the patient's that from a renal standpoint, the patient will be ready for discharge tomorrow, however hospitalist service will need to make a final assessment.
[2019-12-18 22:00] VITALS: BP 134/56
[2019-12-18] MEDS: ATORVASTATIN 20 MG TAB PO SCH (23:03)
[2019-12-18] MEDS: PRAMIPEXOLE (MIRAPEX) 0.125 MG TAB PO SCH (23:03)
[2019-12-18] MEDS: TAMSULOSIN 0.4 MG CAP PO SCH (23:06)
[2019-12-18] MEDS: OSELTAMIVIR PHOSPHATE 30MG CAPSULE PO SCH (23:06)
[2019-12-18] MEDS: DULoxetine 30 MG CAP (CYMBALTA) PO SCH (23:06)
[2019-12-19] MEDS: IPRATROPIUM 0.5MG/ALBUTEROL 2.5MG INH SOL UD 3ML (DUONEB)(J7620) NEB SCH ×3 (01:08→13:40)
[2019-12-19 06:00] VITALS: BP 136/63
[2019-12-19 06:25] LABS: HEMATOCRIT 36.1 % (42.0-52.0); HEMOGLOBIN 11.5 g/dl (13.5-17.5); MEAN CORPUSCULAR HEMOGLOBIN 32.1 pg (27.0-33.0); MEAN CORPUSCULAR HGB CONC 31.9 g/dl (32.0-36.5); MEAN CORPUSCULAR VOLUME 100.8 fl (80.0-96.0); PLATELET COUNT, AUTOMATED 185 10^3/uL (150-450); RED BLOOD COUNT 3.58 10^6/uL (4.30-6.10); WHITE BLOOD COUNT 9.8 10^3/uL (4.0-10.0)
[2019-12-19 06:33] LABS: INR 2.97; PROTHROMBIN TIME 30.9 SECONDS (11.8-14.0)
[2019-12-19 06:47] LABS: CALCIUM LEVEL 8.3 MG/DL (8.8-10.2); CREATININE FOR GFR 3.41 MG/DL (0.70-1.30); GLOMERULAR FILTRATION RATE 19.2 (>49)
[2019-12-19] MEDS: HumaLOG INSULIN (NovoLOG) PER UNIT SC SCH ×2 (08:35→12:00)
[2019-12-19] MEDS: (RENVELA) SEVELAMER **CARBONate** 800 MG TAB PO SCH ×2 (10:12→12:31)
[2019-12-19] MEDS: AZELASTINE 137MCG NASAL SPY 30 ML (ASTELIN) SCH (10:12)
[2019-12-19] MEDS: LEVEMIR (INSULIN DETEMIR) 1 UNITS/0.01ML SC SCH (10:12)
[2019-12-19] MEDS: MIRALAX *UNIT DOSE* 17GM PACKET PO SCH (10:12)
[2019-12-19] MEDS: OMEGA-3 1000MG CAPSULE PO SCH (10:12)
[2019-12-19] MEDS: predniSONE 20 MG TAB PO SCH (10:13)
[2019-12-19] MEDS: PANTOPRAZOLE 40MG TAB (PROTONIX) PO SCH (10:13)
[2019-12-19] MEDS: CLOPIDOGREL 75 MG TAB PO SCH (10:13)
[2019-12-19] MEDS: BUMETANIDE 1 MG TAB PO SCH (10:13)
[2019-12-19] MEDS: GABAPENTIN 100 MG CAP PO SCH (10:13)
[2019-12-19 10:19] VITALS: BP 135/63
[2019-12-19] MEDS: ISOSORBIDE MON. (IMDUR) 30 MG XR TAB PO SCH (10:19)
[2019-12-19] MEDS: bisoproloL fumarate 5 MG TAB PO SCH (10:19)
--- NOTE | 2019-12-19 10:49 | DS.PDOC ---
Discharge Summary General Date of Admission Dec 12, 2019 at 15:34 Date of Discharge 12/19/19 Discharge Summary Chief Complaint The patient is a 69-year-old male admitted with a reason for visit of Influenza A. 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 In the ED, BP was 127/76, HR 56, RR 18, and was afebrile. Initial evaluation showed WBC 7.5, Hgb 11.3, platelets 150, INR 4.91, K 4, Cr 4.56, negative troponin, non ischemic EKG, proBNP 43555 and he was Flu A positive. Given he had a mechanical fall he had a CT of the C- spine that showed degenerative spondylosis and prior C3-C5 fusion, while CT head showed a low intensity area at the severino-white junction in the R cerebellar hemisphere that was new since his last scan in 2013. When asked about the fall, his family reported that he has had recent frequent falls with poor balance for at least a few months. 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 CT head and CT C-spine was without fractures or bleeding CT showing hist ory of cerebellar infarct prior likely contributing to imbalance and frequent falls, ongoing PT/OT evaluation was done and the patient was advised to be discharged home with home services. For his SOB which was 2/2 flu A. CXR without acute PNA however exam with significant rhonchi without wheezing, supportive q6h duonebs with q4hp albuterol, Tamiflu, with renal dosing was done on him and initially he was continued on prednisone, which will be discontinued now as his lungs are clearing. For his Subacute vs. old cerebellar infarct advised to continue plavix and statin. 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 His home dose of insulin has been continued. For his diabetes mellitus. He recently had a PCI in 2018 and requires to be continued on aspirin and Plavix. Initially he had elevated INR, but that could be related to his poor oral intake and he has been restarted on his Coumadin at home dose and INR has been therapeutic. The patient has a medical condition, especially his imbalance which requires positioning of his body in the way which is not visible with an ordinary bed. Due to the his body habitus. It does not always physible to do it in an ordinary bed. Patient also requires had an elevation of greater than 30 because of volume issues, especially his congestive heart failure. He would require hospital bed and will try to arrange that for him. Physical examination General: Alert, No Acute Distress Eye: PERRLA, Conjunctiva & lids normal, EOMI, anicteric ENT: MMM, Pharynx Normal Neck: Supple Chest: Scattered rhonchi improving, no wheezing this morning, and no crackles Heart: RRR, no mrg Abdomen: Normal bowel sounds, Soft, NTND Extremity Exam: Bilateral LE edema, R>L that he reports to be his baseline, WWP, palpable LE pulses Skin: has dime to quarter size raised scaby lesions with central opening Neuro: Normal Speech, Strength at 5/5 X4 ext, Sensation Intact, Cranial Nerves 3-12 NL Psych Exam: Oriented x 3 but is impulsive and high order cognitive reasoning is diminished Medications. As per discharge reconciliation medication list Activity as tolerated Diet. 2 g sodium diet Follow-up appointments. PCP in 1 week, nephrology in 1 week. Condition on discharge. Patient is medically optimized for discharge Discharge disposition: Home Total time spent on this discharge including coordination of care, review of chart documentation and actual contact is around 35 minutes Vital Signs/I&Os Vital Signs Date Time Temp Pulse Resp B/P (MAP) Pulse Ox O2 Delivery O2 Flow Rate FiO2 12/19/19 10:19 135/63 12/19/19 10:19 68 12/19/19 06:00 97.8 19 91 Room Air I&O- Last 24 Hours up to 6 AM 12/19/19 06:00 Intake Total 1260 ml Output Total 2700 ml Balance -1440 ml Laboratory Data Labs 24H Laboratory Tests 2 12/18/19 11:24: Bedside Glucose (Misc Panel) 215H 12/18/19 16:24: Bedside Glucose (Misc Panel) 183H 12/18/19 22:49: Bedside Glucose (Misc Panel) 183H 12/19/19 05:37: Nucleated Red Blood Cells % (auto) 0.0, Prothrombin Time 30.9H, Prothromb Time International Ratio 2.97, Anion Gap 7L, Glomerular Filtration Rate 19.2L, Calcium Level 8.3L CBC/BMP Laboratory Tests 12/19/19 05:37 FSBS Laboratory Tests Test 12/18/19 11:24 12/18/19 16:24 12/18/19 22:49 Range/Units Bedside Glucose (Misc Panel) 215 183 183 80-115 MG/DL Microbiology Microbiology 12/15/19 Gram Stain - Final, Complete 12/15/19 Sputum Culture - Final, Complete Klebsiella Oxytoca Streptococcus Pneumoniae 12/12/19 Blood Culture - Final, Complete NO GROWTH AFTER 5 DAYS 12/12/19 Respiratory Virus Panel (PCR) ([facility]) - Final, Complete Influenza A H1-2009 12/12/19 Blood Culture - Final, Complete NO GROWTH AFTER 5 DAYS Discharge Medications Scheduled Atorvastatin Calcium (Atorvastatin Calcium) 40 Mg Tab, 40 MG PO QPM, (Reported) Azelastine HCl (Azelastine HCl) 0.1% [place].pump, 2 SPRAY NA DAILY, (Reported) Bisoprolol Fumarate (Bisoprolol Fumarate) 5 Mg Tablet, 5 MG PO BID, (Reported) Bumetanide (Bumetanide) 2 Mg Tablet, 2 MG PO DAILY, (Reported) Buprenorphine (Butrans) 20 Mcg/Hr Dis, 20 MCG TD QWEEK, (Reported) APPLIES ON MONDAYS, PATCH IS CURRENTLY APPLIED TO LEFT CHEST. Calcitriol (Calcitriol) 0.25 Mcg Cap, 0.25 MCG PO 3XW, (Reported) RECEIVES AT DIALYSIS WED, WED, WED Clopidogrel Bisulfate (Plavix) 75 Mg Tablet, 75 MG PO DAILY, (Reported) Duloxetine Hcl (Cymbalta) 60 Mg Cap, 60 MG PO QHS, (Reported) Epoetin Lopez (Procrit) 20,000 Unit/Ml Inj, 20,000 UNIT INJ QMONTH, (Reported) Ergocalciferol (Vitamin D2) (Vitamin D2) 50,000 Units Cap, 50,000 UNITS PO QWEEK, (Reported) MONDAYS Fluoxetine Hcl (Fluoxetine HCl) 20 Mg Capsule, 20 MG PO DAILY, (Reported) TAKES AT NOON Fluticasone Propion/Salmeterol (Advair Hfa 230-21 Mcg Inhaler) 1 Aer Aer, 1 PUFF INH BID, (Reported) RX SAY 2 PUFFS BID, PATIENT STATES ONLY DOING 1 PUFF BID Fluticasone Propionate (Fluticasone Propionate) 50 Mcg/Act Spr, 2 SPRAY NA DAILY, (Reported) Gabapentin (Gabapentin) 100 Mg Capsule, 100 MG PO DAILY, (Reported) TAKES AT NOON Glucagon,Human Recombinant (Glucagon Emergency Kit) 1 Mg Kit, 1 MG INJ ASDIRECTED, (Reported) Insulin Glargine (Lantus) 1 Units/0.01 Ml Susp, 8 UNITS SC DAILY, (Reported) Insulin Glargine (Lantus) 1 Units/0.01 Ml Susp, 5 UNITS SC QHS, (Reported) Insulin Lispro (Humalog Kwikpen U-100) 100 Unit/1 Ml Insuln.pen, 7 UNITS SC BID, (Reported) BREAKFAST AND DINNER Insulin Lispro (Humalog Kwikpen U-100) 100 Unit/1 Ml Insuln.pen, 5 UNITS SC DAILY, (Reported) LUNCH Isosorbide Mononitrate (Isosorbide Mononitrate ER) 30 Mg Tab.er.24h, 30 MG PO DAILY, (Reported) Lidocaine/Prilocaine (Lidocaine-Prilocaine Cream) 2.5%/2.5% Cream..g., 1 DOSE TOP 3XW, (Reported) APPLY TO PORT PRIOR TO DIALYSIS [place]-3/Dha/Epa/Fish Oil (Fish Oil 1,000 mg Softgel) 1 Each Capsule, 1,000 MG PO TID, (Reported) Pantoprazole Sodium (Pantoprazole Sodium) 40 Mg Tablet.dr, 40 MG PO DAILY, (Reported) Polyethylene Glycol 3350 (Miralax) 1 Pow Pow, 17 GM PO BID, (Reported) Pramipexole Di-HCl (Mirapex) 0.125 Mg Tablet, 0.125 MG PO QHS, (Reported) Sevelamer Carbonate (Renvela Oral Suspension) 0.8 Gm Powd.pack, 0.8 GRAM PO WM, (Reported) Tamsulosin HCl (Flomax) 0.4 Mg Cap, 0.4 MG PO QHS, (Reported) Warfarin Sodium (Coumadin) 5 Mg Tablet, 5 MG PO 5XW, (Reported) QPM: SUN, TUES, WED, THURS, SAT Warfarin Sodium (Warfarin Sodium) 5 Mg Tablet, 7.5 MG PO 2XW, (Reported) QPM: MON, FRI Scheduled PRN Acetaminophen (Acetaminophen) 500 Mg Tab, 1,000 MG PO Q6H PRN for PAIN, (Reported) Albuterol Sulf (Albuterol Sulfate) 2.5 Mg/3 Ml Nebu, 2.5 MG INH Q4H PRN for SOB/WHEEZING, (Reported) Albuterol Sulfate (Proair Hfa) 108 Mcg/Act Aer, 2 PUFF INH Q4HP PRN for SOB/WHEEZING, (Reported) Hydrocodone/Acetaminophen (Hydrocodone-Acetamin 5-325 mg) 1 Tab Tab, 1 TAB PO Q6H PRN for PAIN, (Reported) Nitroglycerin (Nitroglycerin) 0.4 Mg Tab.subl, 0.4 MG SL NITRO PRN for CHEST PAIN, (Reported) Allergies Coded Allergies: carbamazepine (Verified Allergy, Severe, ANAPHYLAXIX, 01/29/19) phenobarbital (Verified Allergy, Severe, ANAPHYLAXIS, 01/29/19) phenytoin (Verified Allergy, Severe, ANAPHYLAXIS, 01/29/19) Penicillins (Verified Allergy, Intermediate, ITCHING, 01/29/19) bacitracin (Verified Allergy, Intermediate, FACIAL SWELLING, 01/29/19) latex (Verified Allergy, Intermediate, SEVERE RASH AND HIVES, 02/02/19) lisinopril (Verified Allergy, Intermediate, RASH, 01/29/19) meperidine (Verified Allergy, Intermediate, ITCHING, 01/29/19) neomycin (Verified Allergy, Intermediate, FACIAL SWELLING, 01/29/19) pioglitazone (Verified Allergy, Intermediate, EDEMA, 01/29/19) polymyxin B (Verified Allergy, Intermediate, FACIAL SWELLING, 01/29/19) metformin (Verified Allergy, Mild, RASH, 01/29/19) Aminoglycosides (Verified Allergy, Unknown, 01/29/19) NSAIDS (Non-Steroidal Anti-Inflamma (Verified Allergy, Unknown, 01/29/19) gabapentin (Verified Allergy, Unknown, 01/29/19) pregabalin (Verified Allergy, Unknown, 01/29/19) capsaicin (Verified Adverse Reaction, Intermediate, EXCESSIVE BURNING, 01/29/19) dapsone (Verified Adverse Reaction, Intermediate, ANEMIA, 01/29/19) levofloxacin (Verified Adverse Reaction, Intermediate, HEADACHE, 01/29/19) ropinirole (Verified Adverse Reaction, Intermediate, ELEVATED LIVER ENZYMES, 01/29/19) rosuvastatin (Verified Adverse Reaction, Unknown, HEADACHE, 01/29/19) LAUREN DALE MD Dec 19, 2019 10:49
[2019-12-19] MEDS ORDERED: ASPI81CH33 PO (10:55)
[2019-12-19] MEDS: FLUoxetine 20 MG CAP PO SCH (12:31)
--- NOTE | 2019-12-19 14:30 | IPN ---
DATE: 12/19/2019 Mr. Castillo is seen this morning on his bedside. He is sitting in the chair and feels well. His and son are present in the room. The patient was dialyzed yesterday late afternoon and he tolerated his dialysis very well. He still has hoarseness and some cough, but denies any fever or chills. He has no dyspnea, chest pain, hemoptysis, nausea or vomiting. On physical examination, temperature 97.8 degrees Fahrenheit, heart rate 68 per minute and respiratory rate 18 per minute. Blood pressure 135/63 mmHg and oxygen saturation 91% on room air. Head is atraumatic. Neck: Supple and without jugular venous distention (JVD) or thyroid enlargement. Heart sounds are irregular in rhythm and lungs have scattered rhonchi. Abdomen: Soft and nontender and bowel sounds are normal. Extremities: Without any cyanosis or clubbing. Neurologically, he is at his baseline mentation without a focal deficit. Today's labs show a WBC count 9.8, hemoglobin 11.5 and hematocrit 36. Platelets 185. Sodium 137, potassium 4.0, BUN 27 and creatinine 3.4. Glucose 139 and calcium 8.3. INR is 2.97. PROBLEMS: 1. End-stage renal disease. The patient was dialyzed yesterday and there is no emergent need for dialysis today. He will be scheduled for next dialysis tomorrow. 2. Hyponatremia. Sodium level has improved and corrected to normal range. He will continue with fluid restriction of 1500 mL per day. 3. Anemia. His anemia is related to end-stage renal disease and has been stable without need for any intervention. 4. Congestive heart failure. Volume status is very well compensated and is being managed with dialysis. The patient will continue with fluid restriction of 1500 mL per day. 5. Disposition. From a renal standpoint, the patient can be discharged to home today and return to outpatient dialysis clinic tomorrow for his dialysis at his regular scheduled time.
[2019-12-20] MEDS ORDERED: ASPI81CH33 PO (13:26)
== END 2019-12-19 13:59 | disposition home health service (06) | DRG 193 ==
LOC: M ED 09:27 → M MSPAV 15:34 → ENRESERV 16:07
PROVIDERS: ADMIT Internal Medicine; ATTEND Internal Medicine
PROC: 5A1D70Z Performance of Urinary Filtration, Intermittent, Less than 6 Hours Per Day (ICD-10-PCS; principal; 2019-12-13)
DX: J10.1 Influenza due to other identified influenza virus with other respiratory manifestations (principal); N18.6 End stage renal disease; I63.9 Cerebral infarction, unspecified; I13.0 Hypertensive heart and chronic kidney disease with heart failure and stage 1 through stage 4 chronic kidney disease, or unspecified chronic kidney disease; N25.81 Secondary hyperparathyroidism of renal origin; E87.1 Hypo-osmolality and hyponatremia; I50.32 Chronic diastolic (congestive) heart failure; E11.22 Type 2 diabetes mellitus with diabetic chronic kidney disease; L98.9 Disorder of the skin and subcutaneous tissue, unspecified; M47.812 Spondylosis without myelopathy or radiculopathy, cervical region; E11.42 Type 2 diabetes mellitus with diabetic polyneuropathy; K21.9 Gastro-esophageal reflux disease without esophagitis; F03.90 Unspecified dementia, unspecified severity, without behavioral disturbance, psychotic disturbance, mood disturbance, and anxiety; B86 Scabies; F32.9 Major depressive disorder, single episode, unspecified; Z86.718 Personal history of other venous thrombosis and embolism; Z99.2 Dependence on renal dialysis; Z79.4 Long term (current) use of insulin; Z79.01 Long term (current) use of anticoagulants; Z79.899 Other long term (current) drug therapy; Z88.0 Allergy status to penicillin; Z88.1 Allergy status to other antibiotic agents; Z88.6 Allergy status to analgesic agent; Z88.8 Allergy status to other drugs, medicaments and biological substances; D63.1 Anemia in chronic kidney disease; Z98.1 Arthrodesis status; I25.10 Atherosclerotic heart disease of native coronary artery without angina pectoris; R29.6 Repeated falls; Z95.5 Presence of coronary angioplasty implant and graft; Z79.02 Long term (current) use of antithrombotics/antiplatelets

== ENCOUNTER 2019-12-20 12:14 | Inpatient (IN) | payer MEDICARE, MEDICAID ==
[~2019-12-20] VITALS: Ht 175.3 cm; Wt 76.2 kg
[2019-12-20] MEDS: FLUoxetine 20 MG CAP PO SCH (09:00)
[~2019-12-20 12:14] MED LIST changes: +ASPI81CH33 PO; +AZEL1SPR3; +BUME2TAB3 PO; +COUM1TAB17 PO; +FLUO20CA20 PO; +GABA-1171 PO; +HUMA100I5 SC; +ISOS30TA4 PO; +LIDO2.5C15 TOP; +MIRA0.12 PO; +NITR0.4S14 SL; +PANT-23 PO; +PLAV1TAB2 PO; +RENV0.8P PO; +VITA50005 PO
[2019-12-20] MEDS ORDERED: IPRATROPIUM 0.5MG/ALBUTEROL 2.5MG INH SOL UD 3ML (DUONEB)(J7620) NEB ONE (13:00)
[2019-12-20] MEDS ORDERED: ASPI81CH33 PO (13:26)
[2019-12-20 14:02] LABS: BASO % 0.2 % (0.0-1.0); EOS % 0.1 % (0.0-3.0); HEMATOCRIT 34.2 % (42.0-52.0); HEMOGLOBIN 10.9 g/dl (13.5-17.5); LYMPH # 0.5 10^3/uL (1.5-5.0); LYMPH % 3.7 % (24.0-44.0); MEAN CORPUSCULAR HEMOGLOBIN 31.9 pg (27.0-33.0); MEAN CORPUSCULAR HGB CONC 31.9 g/dl (32.0-36.5); MONO # 0.3 10^3/uL (0.0-0.8); MONO % 2.4 % (0.0-5.0); NEUTROPHILS # 12.2 10^3/uL (1.5-8.5); NEUTROPHILS % 92.9 % (36.0-66.0); PLATELET COUNT, AUTOMATED 170 10^3/uL (150-450); RED BLOOD COUNT 3.42 10^6/uL (4.30-6.10); WHITE BLOOD COUNT 13.1 10^3/uL (4.0-10.0)
[2019-12-20 14:17] LABS: INR 2.85; PROTHROMBIN TIME 29.8 SECONDS (11.8-14.0)
[2019-12-20 14:26] LABS: ALBUMIN 2.6 GM/DL (3.2-5.2); BILIRUBIN,DIRECT 0.4 MG/DL (0.0-0.2); BILIRUBIN,TOTAL 0.9 MG/DL (0.2-1.0); CALCIUM LEVEL 8.1 MG/DL (8.8-10.2); CREATININE FOR GFR 4.57 MG/DL (0.70-1.30); GLOMERULAR FILTRATION RATE 13.7 (>49); TOTAL PROTEIN 6.5 GM/DL (6.4-8.2)
--- NOTE | 2019-12-20 15:01 | REP ---
CHEST, TWO VIEWS: Two views of the chest are performed and compared with multiple prior exams, most recently 12/15/2019. There is mild patchy infiltrate in the left lower lobe with a small left pleural effusion. There are overlying basilar fibrotic changes. There is mild cardiomegaly. There is calcification of the thoracic aorta. The mediastinal silhouette is unchanged. Metallic fixation is seen in the lower cervical spine. There are degenerative changes of the thoracic spine. IMPRESSION: Small left lower lobe infiltrate and effusion. Electronically Signed by Curtis Caballero MD 12/20/2019 03:29 P
[2019-12-20] MEDS ORDERED: GLUCAGON FOR INJ 1 MG VIAL (J1610) IV PRN (15:50)
[2019-12-20] MEDS ORDERED: ALBUTEROL SULFATE 2.5 MG/0.5 ML INH NEB SOLN INH PRN (16:00)
[2019-12-20] MEDS: ALBUTEROL SULFATE 2.5 MG/0.5 ML INH NEB SOLN INH SCH ×2 (16:00→19:52)
[2019-12-20] MEDS ORDERED: ACETAMINOPHEN TAB 650MG DOSE (2X325MG) PO PRN (16:00)
[2019-12-20] MEDS ORDERED: ALBUTEROL 90 MCG/ACT 8GM HFA INHALER INH PRN ×2 (16:00→16:30)
[2019-12-20] MEDS ORDERED: DEXTROSE 50% 50 ML SYRINGE IV PRN (16:30)
[2019-12-20] MEDS ORDERED: GLUCAGON FOR INJ 1 MG VIAL (J1610) SC PRN (16:30)
[2019-12-20] MEDS ORDERED: GLUCOSE 4 GM CHEW TABLET PO PRN (16:30)
[2019-12-20] MEDS ORDERED: NORCO, ANEXSIA 5/325MG TABLET (HYDROcodone/ACETAMINOPHEN) PO PRN (16:45)
--- NOTE | 2019-12-20 16:55 | HPEPDOC ---
General Date of Admission Dec 20, 2019 at 15:00 Date of Service: Dec 20, 2019 Chief Complaint The patient is a 69-year-old male admitted with a reason for visit of Chf Exacerbation. Source: Family ( ) Exam Limitations: Clinical conditions Severity: Moderate Associated Symptoms: Unobtainable History of Present Illness Mr. Castillo is a 69 year old male who was d/c from the hospital yesterday following a week-long inpatient stay due to influenza. Pt provided the history today as she stated her is 'out of it'. She reported she brought him back to the hospital today as she did not feel he should have been d/c yesterday. reported that the pt is was going to dialysis this morning when he told her he couldn't make it as he was struggling to breathe and he asked to be taken to the ED. She reported he has had a wet cough and his breathing sounded horrible overnight. Home Medications Scheduled Aspirin (Aspirin) 81 Mg Tab.chew, 81 MG PO DAILY, (Reported) Atorvastatin Calcium (Atorvastatin Calcium) 40 Mg Tab, 40 MG PO QPM, (Reported) Azelastine HCl (Azelastine HCl) 0.1% [place].pump, 2 SPRAY NA DAILY, (Reported) Bisoprolol Fumarate (Bisoprolol Fumarate) 5 Mg Tablet, 5 MG PO BID, (Reported) Bumetanide (Bumetanide) 2 Mg Tablet, 2 MG PO DAILY, (Reported) Buprenorphine (Butrans) 20 Mcg/Hr Dis, 20 MCG TD QWEEK, (Reported) APPLIES ON FRIDAYS, PATCH IS CURRENTLY APPLIED TO ABDOMEN Calcitriol (Calcitriol) 0.25 Mcg Cap, 0.25 MCG PO 3XW, (Reported) RECEIVES AT DIALYSIS WED, WED, WED Clopidogrel Bisulfate (Plavix) 75 Mg Tablet, 75 MG PO DAILY, (Reported) Duloxetine Hcl (Cymbalta) 60 Mg Cap, 60 MG PO QHS, (Reported) Epoetin Lopez (Procrit) 20,000 Unit/Ml Inj, 20,000 UNIT INJ QMONTH, (Reported) Ergocalciferol (Vitamin D2) (Vitamin D2) 50,000 Units Cap, 50,000 UNITS PO QWEEK, (Reported) MONDAYS Fluoxetine Hcl (Fluoxetine HCl) 20 Mg Capsule, 20 MG PO DAILY, (Reported) TAKES AT NOON Fluticasone Propion/Salmeterol (Advair Hfa 230-21 Mcg Inhaler) 1 Aer Aer, 1 PUFF INH BID, (Reported) RX SAY 2 PUFFS BID, PATIENT STATES ONLY DOING 1 PUFF BID Fluticasone Propionate (Fluticasone Propionate) 50 Mcg/Act Spr, 2 SPRAY NA DAILY, (Reported) Gabapentin (Gabapentin) 100 Mg Capsule, 100 MG PO DAILY, (Reported) TAKES AT NOON Insulin Glargine (Lantus) 1 Units/0.01 Ml Susp, 8 UNITS SC DAILY, (Reported) Insulin Glargine (Lantus) 1 Units/0.01 Ml Susp, 5 UNITS SC QHS, (Reported) Insulin Lispro (Humalog Kwikpen U-100) 100 Unit/1 Ml Insuln.pen, 7 UNITS SC BID, (Reported) BREAKFAST AND DINNER Insulin Lispro (Humalog Kwikpen U-100) 100 Unit/1 Ml Insuln.pen, 5 UNITS SC DAILY, (Reported) LUNCH Isosorbide Mononitrate (Isosorbide Mononitrate ER) 30 Mg Tab.er.24h, 30 MG PO DAILY, (Reported) Lidocaine/Prilocaine (Lidocaine-Prilocaine Cream) 2.5%/2.5% Cream..g., 1 DOSE TOP 3XW, (Reported) APPLY TO PORT PRIOR TO DIALYSIS [place]-3/Dha/Epa/Fish Oil (Fish Oil 1,000 mg Softgel) 1 Each Capsule, 1,000 MG PO TID, (Reported) Pantoprazole Sodium (Pantoprazole Sodium) 40 Mg Tablet.dr, 40 MG PO DAILY, (Reported) Polyethylene Glycol 3350 (Miralax) 1 Pow Pow, 17 GM PO BID, (Reported) Pramipexole Di-HCl (Mirapex) 0.125 Mg Tablet, 0.125 MG PO QHS, (Reported) Sevelamer Carbonate (Renvela Oral Suspension) 0.8 Gm Powd.pack, 0.8 GRAM PO WM, (Reported) Tamsulosin HCl (Flomax) 0.4 Mg Cap, 0.4 MG PO QHS, (Reported) Warfarin Sodium (Coumadin) 5 Mg Tablet, 5 MG PO 5XW, (Reported) QPM: SUN, TUES, WED, THURS, SAT Warfarin Sodium (Warfarin Sodium) 5 Mg Tablet, 7.5 MG PO 2XW, (Reported) QPM: MON, FRI Scheduled PRN Acetaminophen (Acetaminophen) 500 Mg Tab, 1,000 MG PO Q6H PRN for PAIN, (Reported) Albuterol Sulf (Albuterol Sulfate) 2.5 Mg/3 Ml Nebu, 2.5 MG INH Q4H PRN for SOB/WHEEZING, (Reported) Albuterol Sulfate (Proair Hfa) 108 Mcg/Act Aer, 2 PUFF INH Q4HP PRN for SOB/WHEEZING, (Reported) Glucagon,Human Recombinant (Glucagon Emergency Kit) 1 Mg Kit, 1 MG INJ ASDIRECTED PRN for LOW BLOOD SUGAR, (Reported) Hydrocodone/Acetaminophen (Hydrocodone-Acetamin 5-325 mg) 1 Tab Tab, 1 TAB PO Q6H PRN for PAIN, (Reported) Nitroglycerin (Nitroglycerin) 0.4 Mg Tab.subl, 0.4 MG SL NITRO PRN for CHEST PAIN, (Reported) Allergies Coded Allergies: carbamazepine (Verified Allergy, Severe, ANAPHYLAXIS, 12/20/19) phenobarbital (Verified Allergy, Severe, ANAPHYLAXIS, 01/29/19) phenytoin (Verified Allergy, Severe, ANAPHYLAXIS, 01/29/19) Penicillins (Verified Allergy, Intermediate, ITCHING, 01/29/19) bacitracin (Verified Allergy, Intermediate, FACIAL SWELLING, 01/29/19) latex (Verified Allergy, Intermediate, SEVERE RASH AND HIVES, 02/02/19) lisinopril (Verified Allergy, Intermediate, RASH, 01/29/19) meperidine (Verified Allergy, Intermediate, ITCHING, 01/29/19) neomycin (Verified Allergy, Intermediate, FACIAL SWELLING, 01/29/19) pioglitazone (Verified Allergy, Intermediate, EDEMA, 01/29/19) polymyxin B (Verified Allergy, Intermediate, FACIAL SWELLING, 01/29/19) metformin (Verified Allergy, Mild, RASH, 01/29/19) Aminoglycosides (Verified Allergy, Unknown, 01/29/19) NSAIDS (Non-Steroidal Anti-Inflamma (Verified Allergy, Unknown, 01/29/19) gabapentin (Verified Allergy, Unknown, 01/29/19) pregabalin (Verified Allergy, Unknown, 01/29/19) capsaicin (Verified Adverse Reaction, Intermediate, EXCESSIVE BURNING, 01/29/19) dapsone (Verified Adverse Reaction, Intermediate, ANEMIA, 01/29/19) levofloxacin (Verified Adverse Reaction, Intermediate, HEADACHE, 01/29/19) ropinirole (Verified Adverse Reaction, Intermediate, ELEVATED LIVER ENZYMES, 01/29/19) rosuvastatin (Verified Adverse Reaction, Unknown, HEADACHE, 01/29/19) Past Medical History Medical History ESRD on HD MWF CHF DMII with peripheral neuropathy HTN HLD 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 Surgical History Cervical Spinal fusion 06/2003: C3 through five cervical discectomy and ventral fusion plating. Colonoscopy Carpal tunnel release 2 cardiac stents in LAD in 05/2019 L ARM BREAK REPAIR 11/1981 R LEG BREAK REPAIR 02/1982 FISTULA PLACED IN RIGHT ARM 2018 Family History Significant Family History: No pertinent family hx Social History * Smoker: former Smoker Alcohol: Denies Drugs: denies Recent Travel/Sick Contacts: Reports: Recent sick contacts; Denies: Recent travel A-FIB/CHADSVASC A-FIB History Current/History of A-Fib/PAF?: No Current PO Anticoag Therapy: Yes Age/Risk Factor Scoring CHADSVASC: CHADSVASC Response (Comments) Value Age Risk Factor Age 65-74 years old 1 Gender Risk Factor Male 0 Hx of CHF Yes 1 Hx of HTN Yes 1 Hx of Stroke/TIA/or VTE Yes 2 Hx of Diabetes Yes 1 Hx of Vascular Disease Yes 1 Total 7 Treatment Treatment ordered: Warfarin Review of Systems Constitutional: Reports: Other (see HPI ) Physical Examination General Exam: Positive: Mild Distress, Other (pt non-verbal, generalized body twitching/jerks. Malnourished with bitemporal wasting ) Eye Exam: Positive: Conjunctiva & lids normal; Negative: Sclera icteric ENT Exam: Positive: Atraumatic, Mucous membr. moist/pink, Pharynx Normal, Other ENT (Bitemporal wasting) Neck Exam: Positive: Supple; Negative: thyromegaly Chest Exam: Positive: Normal air movement (no use of accessory muscles; 97% O2 on RA ), Wheezing (b/l lungs ) Heart Exam: Positive: Rate Normal, Normal S1, Normal S2, Murmurs (2-3/6 SM ); Negative: Gallops, Rubs Telemetry: Negative: No significant arrhythmia Abdomen Exam: Positive: Normal bowel sounds, Soft; Negative: Tenderness Extremity Exam: Positive: Edema (b/l LEs ), Other (wasting of small muscles of hand); Negative: Clubbing, Cyanosis, Normal pulses (diminished pedal pulses ) Skin Exam: Positive: Nl turgor and temperature, Lesion (general lesions b/l arms in various stages of healing ) Neuro Exam: Negative: Normal Gait (uses a walker at home ), Normal Speech (did not speak during exam ) Vital Signs Vital Signs Date Time Temp Pulse Resp B/P (MAP) Pulse Ox O2 Delivery O2 Flow Rate FiO2 12/20/19 15:30 147/73 (97) 12/20/19 15:29 66 19 94 12/20/19 13:20 Room Air 12/20/19 12:24 97.7 Laboratory Data Labs 24H Laboratory Tests 2 12/20/19 13:48: Immature Granulocyte % (Auto) 0.7, Neutrophils (%) (Auto) 92.9H, Lymphocytes (%) (Auto) 3.7L, Monocytes (%) (Auto) 2.4, Eosinophils (%) (Auto) 0.1, Basophils (%) (Auto) 0.2, Neutrophils # (Auto) 12.2H, Lymphocytes # (Auto) 0.5L, Monocytes # (Auto) 0.3, Eosinophils # (Auto) 0.0, Basophils # (Auto) 0.0, Nucleated Red Blood Cells % (auto) 0.0, Prothrombin Time 29.8H, Prothromb Time International Ratio 2.85, Anion Gap 8, Glomerular Filtration Rate 13.7L, Calcium Level 8.1L, Total Bilirubin 0.9, Direct Bilirubin 0.4H, Aspartate Amino Transf (AST/SGOT) 30, Alanine Aminotransferase (ALT/SGPT) 45, Alkaline Phosphatase 165H, Ammonia 21, Total Protein 6.5, Albumin 2.6L, Albumin/Globulin Ratio 0.67L, Lipase 97 CBC/BMP Laboratory Tests 12/20/19 13:48 Microbiology Microbiology 12/20/19 Blood Culture, Received Pending 12/20/19 Blood Culture, Received Pending Assessment/Plan Mr. Castillo is a 69 year old male who was d/c from the hospital yesterday following a week-long inpatient stay due to influenza. Pt provided the history today as she stated her is 'out of it'. She reported she brought him back to the hospital today as she did not feel he should have been d/c yesterday. reported that the pt is was going to dialysis this morning when he told her he couldn't make it as he was struggling to breathe and he asked to be taken to the ED. She reported he has had a wet cough and his breathing sounded horrible overnight. 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 Dyspnea Possibly due to a combination of CHF exacerbation and post infection bronchospasm Patient does also have chronic reticulo nodular fibrosis from [address] chests Chest, 2 view PA, Lat IMPRESSION: Small left lower lobe infiltrate and effusion. - Recent history of hospitalization for Influenza - Continue with home nebulizers as prescribed - Elevated WBC - on 12/19/19 pt white count was normal - Procalcitonin, blood cultures - pending - Sputum on 12/15 +ve for Klebsiella ocytoca and Strep. pneumonia; CXR showed no acute disease - Start Levofloxacin (renal dose), start methyl Prednisone ESRD: On HD for 1 year - Nephrology consult - ED arranged for inpatient dialysis this afternoon - Continued management for nephrology Acute on chronic CHF with preserved EF - Fluid management with nephrology and HD - Continue Bumex due to nicolasa volume overload - Low sodium diet - I&Os and daily weights Moderate to SEVERE pulmonary Hypertension with acute on chronic right heart failure -due to valvular heart disease and possibly COPD also - Echo from 2019 shows moderate to severe mitral regurgitation History of old cerebellar infarct with encephalomalacia since 2013 - Continue ASA and Plavix and Coumadin DM - Continue Levemir - ISS with FBS achs - Hypoglycemic protocol CAD s/p PCI -Continue ASA & Plavix and coumadin Chronic Warfarin - History of DVTs - Continue Warfarin as prescribed with daily INR HTN - Continue Bisoprolol, Bumex Moderate protein malnutrition - low albumin and muscle wasting. BMI falsely not low due to fluid overload. - dietary consult Depression/Anxiety - Continue Prozac/Cymbalta Chronic pain - Gabapentin on hold as it can worsen pedal edema - Butrans on hold - Continue prn [place] Anemia of chronic disease - on Procrit qmonth Plan / VTE VTE Prophylaxis Ordered?: Yes (Chronic Warfarin ) THERESE FONSECA PA-C Dec 20, 2019 16:55 FAUSTINO FERNANDEZ MD Dec 21, 2019 17:36
[2019-12-20] MEDS: NYSTATIN 500,000 U/5 ML SUSP UDC SS SCH ×2 (17:00→21:46)
[2019-12-20] MEDS ORDERED: NITROGLYCERIN 0.4 MG SUBL TABLET SL PRN (17:00)
[2019-12-20] MEDS ORDERED: LevoFLOXacin IV 750 MG in IV 1 EA IV ONE (17:00)
[2019-12-20] MEDS: HumaLOG INSULIN (NovoLOG) PER UNIT SC SCH (17:30)
[2019-12-20] MEDS ORDERED: methylPREDNISolone INJ 40 MG/1 ML VIAL (J2920) IV SCH (18:00)
[2019-12-20] MEDS: (RENVELA) SEVELAMER **CARBONate** 800 MG TAB PO SCH (18:00)
--- NOTE | 2019-12-20 19:47 | CR ---
DATE OF CONSULTATION: 12/20/2019 CONSULTATION REPORT FOR: Edwina Orr MD REASON FOR CONSULTATION: Shortness of breath and volume overload in this gentleman with end-stage renal disease. HISTORY OF PRESENT ILLNESS: Mr. Castillo is a 69-year-old gentleman with multiple chronic medical problems including type 2 diabetes, hypertension, coronary artery disease, atrial fibrillation, depression, and end-stage renal disease. He was admitted to [facility] with flu and was discharged just yesterday. He was brought to the emergency room today by his family due to worsening shortness of breath and weakness. He was found to be volume overloaded and got admitted. The patient was due for dialysis today. However, he elected not to go to outpatient dialysis clinic but his family decided to bring him to the emergency room. Nephrology consultation was requested and the patient is seen for urgent need for dialysis. PAST MEDICAL AND SURGICAL HISTORY: Significant for: 1. Longstanding type 2 diabetes. 2. Hypertension. 3. Coronary artery disease with prior myocardial infarction (ID). 4. History of recurrent deep vein thromboses (DVTs). 5. History of paroxysmal atrial fibrillation. 6. History of anemia. 7. History of cerebellar stroke. 8. History of congestive heart failure. 9. Depression. 10. Spinal stenosis. PAST SURGICAL HISTORY: Significant for: 1. Colonoscopy. 2. Spinal fusion. 3. Carpal tunnel release. PERSONAL AND SOCIAL HISTORY: The patient is a former smoker. Denies any alcohol or drug use. FAMILY HISTORY: Negative for end-stage renal disease. MEDICATIONS: The patient has a long list of medications including aspirin, atorvastatin, bisoprolol, bumetanide, calcitriol, Plavix, Duloxetine, vitamin D, fluoxetine, gabapentin, insulin, isosorbide, omega-3 DHA, pantoprazole, pramipexole, sevelamer, tamsulosin, warfarin. ALLERGIES: The patient has multiple drug allergies which is recorded in his electronic medical records. REVIEW OF SYSTEMS: The patient himself is sleepy and not a good historian. His and daughter are present on the bedside. Apparently, the patient was discharged yesterday after he was cleared by physical therapy and today he was due for outpatient dialysis but did not go to dialysis due to weakness and shortness of breath. No fever or chills reported. He does have generalized jerky movements and has already been referred to neurology but waiting for his appointment. Ears, nose and throat are unremarkable. Cardiovascular system is significant for progressive dyspnea and leg edema but denies any chest pain. Respiratory system is significant for recent history of flu and infiltrate on his chest x-ray. No hemoptysis reported. Gastrointestinal (GI) system is significant for poor appetite but no vomiting or diarrhea reported. Genitourinary () system is significant for benign prostatic hypertrophy (BPH) and no dysuria or hematuria. Endocrine system is significant for type 2 diabetes and secondary hyperparathyroidism. Psychosocial system is significant for anxiety and depression. Neurological system is significant for spinal stenosis and peripheral neuropathy. He also had prior history of stroke. Hematological system is significant for prior history of deep vein thrombosis (DVT) and long-term anticoagulation. PHYSICAL EXAMINATION: At the time of my visit this evening during dialysis, the patient is resting comfortably. Temperature is 98 degrees Fahrenheit, heart rate 68 per minute and respiratory rate 18 per minute. Blood pressure 147/73 mmHg and oxygen saturation 94%. Head is atraumatic. Neck is supple and jugular venous distention (JVD) is about 12 cm above sternal angle. Lungs with slightly diminished breath sounds and bibasilar rales. Heart sounds are irregular in rhythm and without a pericardial friction rub. Abdomen is soft and nontender and ascites is present. Extremities have no cyanosis or clubbing. He has about 3+ edema on his lower extremities. Skin has small areas of rashes and no big ulcers. Neurologically, he is arousable but sleepy and without a focal deficit. Nursing staff reports that he walked to the bed from the stretcher for dialysis. LABORATORY DATA: WBC count is 13.1, hemoglobin 10.9 and hematocrit 34.2. Platelets 170. Sodium 132, potassium 4.0, CO2 29, BUN 42 and creatinine 4.57. Glucose 217 and calcium 8.1. Alkaline phosphatase 165 and ammonia 21. Chest x-ray showed a small left lobe infiltrate and effusion. PROBLEMS: 1. Shortness of breath, most likely related to volume overload. The patient was last dialyzed on Wednesday. However, he has been drinking more than usual fluids due to recent flu. He probably got volume overloaded over the last few days and did not have end of fluid taken off on Wednesday. Now, he is grossly volume overloaded and may have had extra of fluid intake since discharge. He is already in dialysis for urgent treatment today and we are trying to remove about 3.5 liters of fluid. He is likely to require further dialysis or ultrafiltration for complete correction of volume. 2. End-stage renal disease. The patient is due for dialysis today and he is being dialyzed. I will reevaluate him tomorrow for further dialysis or ultrafiltration needs. 3. Anemia. His anemia is mild and stable and does not need any urgent intervention. 4. Ascites. Most likely related to volume overload and will be corrected with dialysis. I do not feel that liver ultrasound is going to make any difference. I am going to cancel it and we will watch him for now. 5. Chronic obstructive pulmonary disease (COPD). He does have history of COPD but seems to be stable at present and no exacerbation of COPD is suspected. Steroids are not indicated and I am going to cancel the steroid dose. We will correct his volume status aggressively and monitor his respiratory status. 6. Chronic anticoagulation for recurrent deep vein thromboses (DVTs). The patient remains on Coumadin and his international normalized ratio (INR) today is slightly on the high side but still within therapeutic range. Thank you for involving me in the care of Mr. Castillo. I will follow him along with you.
[2019-12-20] MEDS: ADVAIR HFA 230/21MCG INHALER INH SCH ×2 (19:51→19:52)
[2019-12-20] MEDS ORDERED: ADVAIR HFA 230/21MCG INHALER INH SCH (20:00)
[2019-12-20] MEDS: TAMSULOSIN 0.4 MG CAP PO SCH (21:40)
[2019-12-20] MEDS: DULoxetine 30 MG CAP (CYMBALTA) PO SCH (21:41)
[2019-12-20] MEDS: ATORVASTATIN 20 MG TAB PO SCH (21:41)
[2019-12-20] MEDS: CALCITRIOL 0.25 MCG CAP (S0169) PO SCH (21:43)
[2019-12-20] MEDS: bisoproloL fumarate 5 MG TAB PO SCH (21:43)
[2019-12-20] MEDS: LEVEMIR (INSULIN DETEMIR) 1 UNITS/0.01ML SC SCH (21:47)
[2019-12-20 22:00] VITALS: BP 143/71
[2019-12-20] MEDS: ONDANSETRON 4MG/2ML VIAL (J2405) IV PRN (23:51)
[2019-12-21] MEDS: ALBUTEROL SULFATE 2.5 MG/0.5 ML INH NEB SOLN INH SCH ×6 (00:35→20:00)
[2019-12-21] MEDS: PRAMIPEXOLE (MIRAPEX) 0.125 MG TAB PO SCH ×2 (00:47→20:33)
[2019-12-21 02:00] VITALS: BP 146/73
--- NOTE | 2019-12-21 05:47 | ECGEPIP ---
[facility] - ED Test Date: 2019-12-20 Pat Name: YOVANI VALLEJO Department: Room: - Gender: Male [employer] Specialist: WU : [id number] Requested By: RAVEN Nation Order Number: [id number] Reading MD: Orion Grajeda Measurements Intervals [place] Rate: 67 P: 96 RI: 195 QRS: -63 QRSD: 117 T: 88 QT: 433 QTc: 458 Interpretive Statements SINUS RHYTHM LEFT AXIS DEVIATION INCOMPLETE RIGHT BUNDLE BRANCH BLOCK POSSIBLE ANTERIOR MYOCARDIAL INFARCTION, OF INDETERMINATE AGE SIMILAR TO 12/12/19 Electronically Signed on 12-21-2019 5:47:01 EST by Orion Grajeda
[2019-12-21 06:00] VITALS: BP 139/77
[2019-12-21 06:06] LABS: MEAN CORPUSCULAR HEMOGLOBIN 31.6 pg (27.0-33.0); MEAN CORPUSCULAR HGB CONC 31.4 g/dl (32.0-36.5); MEAN CORPUSCULAR VOLUME 100.6 fl (80.0-96.0); PLATELET COUNT, AUTOMATED 190 10^3/uL (150-450); RED BLOOD COUNT 3.48 10^6/uL (4.30-6.10); WHITE BLOOD COUNT 9.7 10^3/uL (4.0-10.0)
[2019-12-21 06:17] LABS: INR 2.69; PROTHROMBIN TIME 28.5 SECONDS (11.8-14.0)
[2019-12-21 06:24] LABS: CALCIUM LEVEL 8.5 MG/DL (8.8-10.2); CREATININE FOR GFR 3.11 MG/DL (0.70-1.30); GLOMERULAR FILTRATION RATE 21.4 (>49); POTASSIUM SERUM 4.2 MEQ/L (3.5-5.1)
[2019-12-21] MEDS: ADVAIR HFA 230/21MCG INHALER INH SCH ×2 (07:40→20:44)
[2019-12-21] MEDS: CLOPIDOGREL 75 MG TAB PO SCH (08:52)
[2019-12-21] MEDS: (RENVELA) SEVELAMER **CARBONate** 800 MG TAB PO SCH ×3 (08:52→18:19)
[2019-12-21] MEDS: BUMETANIDE 1 MG TAB PO SCH (08:52)
[2019-12-21] MEDS: ISOSORBIDE MON. (IMDUR) 30 MG XR TAB PO SCH (08:52)
[2019-12-21] MEDS: PANTOPRAZOLE 40MG TAB (PROTONIX) PO SCH (08:52)
[2019-12-21] MEDS: NYSTATIN 500,000 U/5 ML SUSP UDC SS SCH ×4 (08:52→20:33)
[2019-12-21] MEDS: FLUoxetine 20 MG CAP PO SCH (08:53)
[2019-12-21] MEDS: HumaLOG INSULIN (NovoLOG) PER UNIT SC SCH ×3 (08:53→18:20)
[2019-12-21] MEDS: bisoproloL fumarate 5 MG TAB PO SCH ×2 (08:53→20:33)
[2019-12-21] MEDS: AZELASTINE 137MCG NASAL SPY 30 ML (ASTELIN) SCH (08:54)
[2019-12-21] MEDS: FLUTICASONE PROP 0.05% NASAL SPRAY 16 GM (FLONASE) SCH (08:54)
[2019-12-21] MEDS ORDERED: LEVEMIR (INSULIN DETEMIR) 1 UNITS/0.01ML SC SCH (09:00)
[2019-12-21] MEDS ORDERED: ASPIRIN 81 MG CHEW TABLET PO SCH (09:00)
[2019-12-21 10:00] VITALS: BP 126/55
[2019-12-21] MEDS: methylPREDNISolone INJ 40 MG/1 ML VIAL (J2920) IV SCH ×2 (13:00→18:19)
[2019-12-21] MEDS ORDERED: LIDOCAINE 1% SDV 5 ML VIAL SQ ONE (14:45)
[2019-12-21] MEDS ORDERED: HEPARIN 1,000 UNITS/ML 10ML VIAL (FOR RADIOLOGY& DIALYSIS ONLY)(J1644-10) IV ONE (14:45)
--- NOTE | 2019-12-21 15:36 | IPNPDOC ---
Subjective Date Seen The patient was seen on 12/21/19. Subjective Chief Complaint/HPI Mr. Castillo is a 69 year old male who was admitted to the hospital due to dyspnea 2/2 volume overload. Pt was d/c from the hospital on 12/19/19 and returned to [facility] ED on 12/20/19 where CXR revealed he had a LLL pneumonia. He is currently being managed with HD per nephrology who are also managing his volume overload. He is being treated inpatient for HAP. Pt seen in sitting up in the recliner this morning, talking with his family. He reported he feels better today than yesterday; continues with a productive cough, denied fever, chills, night sweats. He denied feeling short of breath this morning. General: Reports: Normal Appetite; Denies: Chills, Night Sweats, Fatigue, Malaise Constitutional: Denies: Chills, Fever, Night Sweats Eyes: Denies: Pain ENT: Denies: Head Aches Skin: Denies: Rash, Breakdown Pulmonary: Denies: Dyspnea, Cough Cardiovascular: Denies: Chest Pain, Palpitations, Orthopnea, Paroxysmal Noc. Dyspnea, Lt Headedness Gastrointestinal: Denies: Nausea, Vomiting, Abdominal Pain, Diarrhea, Constipation Genitourinary: Denies: Dysuria, Retention Hematologic: Denies: Bruising Musculoskeletal: Denies: Neck Pain, Back Pain, Joint Pain, Muscle Pain, Spasms Neurological: Denies: Weakness, Numbness Psych: Reports: Mood Normal Objective Physical Examination General Exam: Positive: Alert, No Acute Distress Eye Exam: Positive: Conjunctiva & lids normal; Negative: Sclera icteric ENT Exam: Positive: Atraumatic, Mucous membr. moist/pink, Pharynx Normal Neck Exam: Positive: Supple; Negative: thyromegaly Chest Exam: Positive: Normal air movement (no use of accessory muscles; 97% O2 on RA ), Wheezing (b/l lungs ) Heart Exam: Positive: Rate Normal, Normal S1, Normal S2, Murmurs (2-3/6 SM ); Negative: Gallops, Rubs Telemetry: Negative: No significant arrhythmia Abdomen Exam: Positive: Normal bowel sounds, Soft; Negative: Tenderness Extremity Exam: Positive: Edema (b/l LEs ); Negative: Clubbing, Cyanosis, Normal pulses (diminished pedal pulses ) Skin Exam: Positive: Nl turgor and temperature, Lesion (general lesions b/l arms in various stages of healing ) Neuro Exam: Negative: Normal Gait (uses a walker at home ), Normal Speech (did not speak during exam ) Psych Exam: Positive: Mood NL Assessment /Plan Assessment Mr. Castillo is a 69 year old male who was d/c from the hospital yesterday following a week-long inpatient stay due to influenza. Pt provided the history today as she stated her is 'out of it'. She reported she brought him back to the hospital today as she did not feel he should have been d/c yesterday. reported that the pt is was going to dialysis this morning when he told her he couldn't make it as he was struggling to breathe and he asked to be taken to the ED. She reported he has had a wet cough and his breathing sounded horrible overnight. 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 Pneumonia, LLL Chest, 2 view PA, Lat IMPRESSION: Small left lower lobe infiltrate and effusion. - Recent history of hospitalization for Influenza - Continue with home nebulizers as prescribed - Elevated WBC - on 12/19/19 pt white count was wnl on d/c - Procalcitonin, blood cultures - pending - Sputum on 12/15 +ve for Klebsiella ocytoca and Strep. pneumonia; CXR showed no acute disease - Continue Levofloxacin (renal dose) and Prednisone COPD exacerbation - nebs, inhalers and methyl pred ESRD - Nephrology consult - pt dialyzed 12/20/19 with 3500 cc fluid removed - Continued management per nephrology Chronic CHF with acute exacerbation - ECHO from 02/10 reportedly revealed LVEF ~ 75% with mod - severe mitral regurgitation, mildly dilated LV, moderately dilated LA and mild TI. - Fluid management with nephrology and HD - Continue Bumex due to nicolasa volume overload - Low sodium diet - I&Os and daily weights History of. old cerebellar infarct - Continue Plavix and Coumadin DM - Continue Levemir - ISS with FBS achs - Hypoglycemic protocol CAD s/p PCI -Continue Plavix and Coumadin History of DVTs - Continue Warfarin as prescribed with daily INR HTN - Continue Bisoprolol, Bumex Moderate protein malnutrition - dietary consult Depression/Anxiety - Continue Prozac and Cymbalta Chronic pain - Continue Gabapentin - Butrans on hold - Continue prn [place] Anemia of chronic disease - on Procrit qmonth Plan/VTE VTE Prophylaxis Ordered?: Yes (on Chronic Warfarin ) VS, I&O, 24H, Fishbone Vital Signs/I&O Vital Signs Date Time Temp Pulse Resp B/P (MAP) Pulse Ox O2 Delivery O2 Flow Rate FiO2 12/21/19 10:00 99.5 60 18 126/55 (78) 99 Room Air I&O- Last 24 Hours up to 6 AM 12/21/19 06:00 Intake Total 600 ml Output Total 3500 ml Balance -2900 ml Laboratory Data 24H LABS Laboratory Tests 2 12/20/19 21:10: Bedside Glucose (Misc Panel) 145H 12/21/19 05:21: Nucleated Red Blood Cells % (auto) 0.0, Prothrombin Time 28.5H, Prothromb Time I nternational Ratio 2.69, Anion Gap 7L, Glomerular Filtration Rate 21.4L, Calcium Level 8.5L 12/21/19 12:30: Bedside Glucose (Misc Panel) 161H CBC/BMP Laboratory Tests 12/21/19 05:21 Microbiology Microbiology 12/20/19 Blood Culture - Preliminary, Resulted 12/20/19 Blood Culture - Preliminary, Resulted No growth after 24 hours . All specim... THERESE FONSECA PA-C Dec 21, 2019 15:36 FAUSTINO FERNANDEZ MD Dec 21, 2019 17:39
--- NOTE | 2019-12-21 16:30 | IPN ---
DATE: 12/21/2019 Mr. Castillo is seen this morning on his bedside. He is laying in the bed in supine position without any distress or shortness of breath. He did have dialysis yesterday and 3 liters of fluid was removed without any difficulty. He is scheduled for ultrafiltration this afternoon. The patient denies any nausea, vomiting, fever or chills. PHYSICAL EXAMINATION: Temperature 97.7 degrees Fahrenheit, heart rate 64 per minute and respiratory rate 18 per minute. Blood pressure 139/77 mmHg and oxygen saturation 99% on room air. His neck veins are still significantly distended, and there is no oral thrush or ulcers. Head is atraumatic and neck is supple. Heart sounds are irregular in rhythm and lungs with diminished breath sounds at bases. Abdomen: Soft and nontender and ascites is present. Extremities: Without any cyanosis or clubbing. Lower extremity edema is still 2+. Neurologically, he is awake and alert and at his baseline mentation. Today's labs show WBC count 9.7, hemoglobin 11.0 and hematocrit 35. Sodium 133, potassium 4.2, CO2 of 29, BUN 24 and creatinine 3.11. PROBLEMS: 1. End-stage renal disease. The patient was dialyzed yesterday and did complete his full treatment. His next regular dialysis will be done tomorrow. 2. Hypervolemia and shortness of breath. Most likely multifactorial but predominantly it is the volume overload causing his dyspnea. We plan to ultrafiltrate him today for three more liters of fluid removal and then further fluid will be removed with regular dialysis tomorrow. I am not sure he has chronic obstructive pulmonary disease (COPD) exacerbation as he is lying very comfortably. 3. Hyponatremia, mild hyponatremia. Does not need any urgent intervention. This will correct with dialysis. 4. Pneumonia. The patient is currently being treated with levofloxacin and feeling well. 5. Coronary artery disease. He is currently asymptomatic and remains on his chronic medications including Plavix and beta felician[place] and aspirin. 6. Ascites. Probably he has ascites related to generalized volume overload and likely to improve with dialysis and fluid removal. If it does not improve, then we will consider an ultrasound.
[2019-12-21 17:25] VITALS: BP 125/58
[2019-12-21] MEDS: WARFARIN SOD 5 MG TAB PO SCH (18:20)
[2019-12-21] MEDS: TAMSULOSIN 0.4 MG CAP PO SCH (20:33)
[2019-12-21] MEDS: ATORVASTATIN 20 MG TAB PO SCH (20:33)
[2019-12-21] MEDS: DULoxetine 30 MG CAP (CYMBALTA) PO SCH (20:33)
[2019-12-21] MEDS: LEVEMIR (INSULIN DETEMIR) 1 UNITS/0.01ML SC SCH (20:34)
[2019-12-21 22:00] VITALS: BP 143/62
[2019-12-21] MEDS: ONDANSETRON 4MG/2ML VIAL (J2405) IV PRN (22:55)
[2019-12-22] MEDS: ALBUTEROL SULFATE 2.5 MG/0.5 ML INH NEB SOLN INH SCH ×7 (00:29→23:31)
[2019-12-22] MEDS: methylPREDNISolone INJ 40 MG/1 ML VIAL (J2920) IV SCH ×4 (00:41→18:29)
[2019-12-22] MEDS ORDERED: ONDANSETRON 4MG/2ML VIAL (J2405) IV ONE (02:30)
[2019-12-22] MEDS: bisoproloL fumarate 5 MG TAB PO SCH ×2 (06:28→20:55)
[2019-12-22] MEDS: BUMETANIDE 1 MG TAB PO SCH (06:28)
[2019-12-22] MEDS: NYSTATIN 500,000 U/5 ML SUSP UDC SS SCH ×4 (06:28→20:58)
[2019-12-22] MEDS: PANTOPRAZOLE 40MG TAB (PROTONIX) PO SCH (06:28)
[2019-12-22] MEDS: CLOPIDOGREL 75 MG TAB PO SCH (06:29)
[2019-12-22] MEDS: FLUoxetine 20 MG CAP PO SCH (06:29)
[2019-12-22] MEDS: ISOSORBIDE MON. (IMDUR) 30 MG XR TAB PO SCH (06:29)
[2019-12-22] MEDS: AZELASTINE 137MCG NASAL SPY 30 ML (ASTELIN) SCH (06:30)
[2019-12-22] MEDS: FLUTICASONE PROP 0.05% NASAL SPRAY 16 GM (FLONASE) SCH (06:30)
[2019-12-22 07:24] LABS: HEMATOCRIT 33.6 % (42.0-52.0); HEMOGLOBIN 10.6 g/dl (13.5-17.5); MEAN CORPUSCULAR HEMOGLOBIN 31.5 pg (27.0-33.0); MEAN CORPUSCULAR HGB CONC 31.5 g/dl (32.0-36.5); MEAN CORPUSCULAR VOLUME 99.7 fl (80.0-96.0); PLATELET COUNT, AUTOMATED 189 10^3/uL (150-450); RED BLOOD COUNT 3.37 10^6/uL (4.30-6.10); WHITE BLOOD COUNT 7.9 10^3/uL (4.0-10.0)
[2019-12-22 07:36] LABS: INR 2.08; PROTHROMBIN TIME 23.2 SECONDS (11.8-14.0)
[2019-12-22 07:46] LABS: CALCIUM LEVEL 8.3 MG/DL (8.8-10.2); CREATININE FOR GFR 4.4 MG/DL (0.70-1.30); GLOMERULAR FILTRATION RATE 14.3 (>49)
[2019-12-22] MEDS: (RENVELA) SEVELAMER **CARBONate** 800 MG TAB PO SCH ×3 (08:13→17:18)
[2019-12-22] MEDS: LEVEMIR (INSULIN DETEMIR) 1 UNITS/0.01ML SC SCH (08:14)
[2019-12-22] MEDS: HumaLOG INSULIN (NovoLOG) PER UNIT SC SCH ×3 (08:14→17:50)
[2019-12-22] MEDS: ADVAIR HFA 230/21MCG INHALER INH SCH ×2 (08:17→20:14)
[2019-12-22] MEDS ORDERED: HEPARIN 1,000 UNITS/ML 10ML VIAL (FOR RADIOLOGY& DIALYSIS ONLY)(J1644-10) IV ONE (12:15)
[2019-12-22] MEDS ORDERED: LIDOCAINE 1% SDV 5 ML VIAL SQ ONE (12:15)
[2019-12-22] MEDS: GABAPENTIN 100 MG CAP PO SCH (13:20)
--- NOTE | 2019-12-22 13:23 | IPNPDOC ---
Text Note Date of Service The patient was seen on 12/22/19. NOTE Chief Complaint/HPI Mr. Castillo is a 69 year old male who was admitted to the hospital due to dyspnea 2/2 volume overload. Pt was d/c from the hospital on 12/19/19 and returned to [facility] ED on 12/20/19 where CXR revealed he had a LLL pneumonia. He is currently being managed with HD per nephrology who are also managing his volume overload. He is being treated inpatient for HAP. Pt seen in HD this morning. He reported he got very little sleep last night due to nausea; he received 2 doses of Zofran which helped eventually. His Sx have improved this morning. He is also coughing up some yellow-tinged phlegm, denied fever/chills/night sweats. Physical Examination General Exam: Positive: Alert, No Acute Distress Eye Exam: Positive: Conjunctiva & lids normal; Negative: Sclera icteric ENT Exam: Positive: Atraumatic, Mucous membr. moist/pink, Pharynx Normal Neck Exam: Positive: Supple; Negative: thyromegaly Chest Exam: Positive: Normal air movement (no use of accessory muscles; 97% O2 on RA ), Wheezing (b/l lungs ) Heart Exam: Positive: Rate Normal, Normal S1, Normal S2, Murmurs (2-3/6 SM ); Negative: Gallops, Rubs Telemetry: Negative: No significant arrhythmia Abdomen Exam: Positive: Normal bowel sounds, Soft; Negative: Tenderness Extremity Exam: Positive: Edema (b/l LEs ); Negative: Clubbing, Cyanosis, Normal pulses (diminished pedal pulses ) Skin Exam: Positive: Nl turgor and temperature, Lesion (general lesions b/l arms in various stages of healing ) Neuro Exam: Negative: Normal Gait (uses a walker at home ), Normal Speech Psych Exam: Positive: Mood NL Assessment /Plan Assessment Mr. Castillo is a 69 year old male who was d/c from the hospital yesterday following a week-long inpatient stay due to influenza. Pt provided the history today as she stated her is 'out of it'. She reported she brought him back to the hospital today as she did not feel he should have been d/c yesterday. reported that the pt is was going to dialysis this morning when he told her he couldn't make it as he was struggling to breathe and he asked to be taken to the ED. She reported he has had a wet cough and his breathing sounded horrible overnight. Pt has a PMHx which includes: ESRD on HD MWF, CHF, DMII, HTN, History of recu rrent DVTs on warfarin, CAD s/p PCI, most recent in 2018, Anemia of Chronic Disease, History of Cerebellar Stroke and Depression. Pneumonia, LLL Chest, 2 view PA, Lat IMPRESSION: Small left lower lobe infiltrate and effusion. - Recent history of hospitalization for Influenza - Continue with home nebulizers as prescribed - Elevated WBC - on 12/19/19 pt white count was wnl on d/c - Procalcitonin, blood cultures - pending - Sputum on 12/15 +ve for Klebsiella ocytoca and Strep. pneumonia; CXR showed no acute disease - Continue Levofloxacin (renal dose) and Prednisone COPD exacerbation - nebs, inhalers and methyl pred ESRD - Nephrology on consult and continue to manage HD Chronic CHF with acute exacerbation - ECHO from 02/10 reportedly revealed LVEF ~ 75% with mod - severe mitral regurgitation, mildly dilated LV, moderately dilated LA and mild TI. - Fluid management with nephrology and HD - Continue Bumex due to [place]olas[place] volume overload - Low sodium diet - I&Os and daily weights History of. old cerebellar infarct - Continue Plavix and Coumadin DM - Continue Levemir - ISS with FBS achs - Hypoglycemic protocol CAD s/p PCI -Continue Plavix and Coumadin History of DVTs - Continue Warfarin as prescribed with daily INR HTN - Continue Bisoprolol, Bumex Moderate protein malnutrition - dietary consult Depression/Anxiety - Continue Prozac and Cymbalta Chronic pain - Continue Gabapentin - Butrans on hold - Continue prn [place] Anemia of chronic disease - on Procrit qmonth Plan/VTE VTE Prophylaxis Ordered?: Yes (on Chronic Warfarin ) VS,Fishbone, I+O VS, Fishbone, I+O Laboratory Tests 12/22/19 06:56 Vital Signs Date Time Temp Pulse Resp B/P (MAP) Pulse Ox O2 Delivery O2 Flow Rate FiO2 12/22/19 06:29 146/62 12/22/19 06:28 66 12/21/19 22:00 98.3 21 94 Room Air I&O- Last 24 Hours up to 6 AM 12/22/19 05:59 Intake Total 600 ml Output Total 3750 ml Balance -3150 ml THERESE FONSECA PA-C Dec 22, 2019 13:19
[2019-12-22 14:00] VITALS: BP 143/78
--- NOTE | 2019-12-22 16:36 | IPN ---
DATE: 12/22/2019 Mr. Castillo is seen this morning during hemodialysis. He is lying comfortably in the bed and denies any cough or hemoptysis. He denies any fever, chills, nausea or vomiting. PHYSICAL EXAMINATION Temperature 98.3 degrees Fahrenheit, heart rate 66 per minute and respiratory rate 20 per minute. Blood pressure is 109/60 mmHg at present and oxygen saturation 97% on room air. Head is atraumatic. Neck is supple and JVD still elevated. Heart: Sounds are irregular in rhythm. Lungs: With slightly diminished breath sounds at bases. Abdomen: Soft and nontender and bowel sounds are present. Extremities: Have no cyanosis or clubbing. Lower extremity edema has improved. Neurologically he is awake, alert and at his baseline mentation. LABS: Today's labs show WBC count 7.9, hemoglobin 10.6 and hematocrit 33.6. Platelets 189. Sodium 129, potassium 5.0, BUN 39 and creatinine 4.4. Glucose 291 and calcium 8.3. PROBLEMS 1. End-stage renal disease. Patient is being dialyzed today and today is his regular dialysis day. He is tolerating dialysis treatment very well. 2. Shortness of breath and hypervolemia. The patient had 3 liters fluid removed yesterday with ultrafiltration and 3 liters were removed on Wednesday with dialysis. We are removing another 3 liters today. His volume status has improved significantly. 3. Anemia. At present his anemia is stable and does not need any urgent intervention. 4. Pneumonia and flu. He did test positive for flu about 10 days ago. However, also has infiltrate on chest x-ray and remains on levofloxacin. At present he is afebrile.
[2019-12-22] MEDS ORDERED: WARFARIN SOD 2.5 MG TAB PO SCH (17:00)
[2019-12-22] MEDS ORDERED: LevoFLOXacin IV 500 MG in IV 1 EA IV SCH (17:00)
[2019-12-22] MEDS: CALCITRIOL 0.25 MCG CAP (S0169) PO SCH (17:18)
[2019-12-22] MEDS: ATORVASTATIN 20 MG TAB PO SCH (20:53)
[2019-12-22] MEDS: TAMSULOSIN 0.4 MG CAP PO SCH (20:56)
[2019-12-22] MEDS: DULoxetine 30 MG CAP (CYMBALTA) PO SCH (20:56)
[2019-12-22] MEDS: PRAMIPEXOLE (MIRAPEX) 0.125 MG TAB PO SCH (20:56)
[2019-12-22] MEDS ORDERED: LEVEMIR (INSULIN DETEMIR) 1 UNITS/0.01ML SC SCH (21:00)
[2019-12-22 22:00] VITALS: BP 134/53
[2019-12-23] MEDS: MIRALAX *UNIT DOSE* 17GM PACKET PO PRN (00:47)
[2019-12-23] MEDS: methylPREDNISolone INJ 40 MG/1 ML VIAL (J2920) IV SCH ×3 (00:47→18:31)
[2019-12-23] MEDS: ALBUTEROL SULFATE 2.5 MG/0.5 ML INH NEB SOLN INH SCH ×6 (03:58→23:59)
[2019-12-23 06:00] VITALS: BP 135/53
[2019-12-23 06:35] LABS: HEMATOCRIT 35.4 % (42.0-52.0); HEMOGLOBIN 11.2 g/dl (13.5-17.5); MEAN CORPUSCULAR HEMOGLOBIN 31.7 pg (27.0-33.0); MEAN CORPUSCULAR HGB CONC 31.6 g/dl (32.0-36.5); MEAN CORPUSCULAR VOLUME 100.3 fl (80.0-96.0); PLATELET COUNT, AUTOMATED 197 10^3/uL (150-450); RED BLOOD COUNT 3.53 10^6/uL (4.30-6.10); WHITE BLOOD COUNT 8.6 10^3/uL (4.0-10.0)
[2019-12-23 06:46] LABS: INR 2.05; PROTHROMBIN TIME 22.9 SECONDS (11.8-14.0)
[2019-12-23 07:00] LABS: CALCIUM LEVEL 8.2 MG/DL (8.8-10.2); CREATININE FOR GFR 3.37 MG/DL (0.70-1.30); GLOMERULAR FILTRATION RATE 19.5 (>49); POTASSIUM SERUM 4.7 MEQ/L (3.5-5.1)
[2019-12-23] MEDS: ADVAIR HFA 230/21MCG INHALER INH SCH ×2 (07:28→20:07)
[2019-12-23] MEDS: HumaLOG INSULIN (NovoLOG) PER UNIT SC SCH ×3 (08:14→18:31)
[2019-12-23] MEDS: PANTOPRAZOLE 40MG TAB (PROTONIX) PO SCH (08:15)
[2019-12-23] MEDS: CLOPIDOGREL 75 MG TAB PO SCH (08:15)
[2019-12-23] MEDS: (RENVELA) SEVELAMER **CARBONate** 800 MG TAB PO SCH ×3 (08:15→18:30)
[2019-12-23] MEDS: LEVEMIR (INSULIN DETEMIR) 1 UNITS/0.01ML SC SCH (08:15)
[2019-12-23] MEDS: FLUoxetine 20 MG CAP PO SCH (08:15)
[2019-12-23] MEDS: NYSTATIN 500,000 U/5 ML SUSP UDC SS SCH ×2 (08:16→12:36)
[2019-12-23] MEDS: ISOSORBIDE MON. (IMDUR) 30 MG XR TAB PO SCH (08:16)
[2019-12-23] MEDS: BUMETANIDE 1 MG TAB PO SCH (08:16)
[2019-12-23] MEDS: bisoproloL fumarate 5 MG TAB PO SCH ×2 (08:16→20:34)
[2019-12-23] MEDS: AZELASTINE 137MCG NASAL SPY 30 ML (ASTELIN) SCH (08:17)
[2019-12-23] MEDS: FLUTICASONE PROP 0.05% NASAL SPRAY 16 GM (FLONASE) SCH (08:17)
--- NOTE | 2019-12-23 08:50 | IPNPDOC ---
Text Note Date of Service The patient was seen on 12/23/19. NOTE Subjective: Feels much better, says SOb has improved sinificantly, he is still coughing out phlegm but less. no fever or chills. This am he complains of being very constipated . Physical Examination General Exam: Positive: Alert, No Acute Distress Eye Exam: Positive: Conjunctiva & lids normal; Negative: Sclera icteric ENT Exam: Positive: Atraumatic, Mucous membr. moist/pink, Pharynx Normal Neck Exam: Positive: Supple; Negative: thyromegaly Chest Exam: Positive: Normal air movement (no use of accessory muscles; 97% O2 on RA ), Wheezing (b/l lungs ) Heart Exam: Positive: Rate Normal, Normal S1, Normal S2, Murmurs (2-3/6 SM ); Negative: Gallops, Rubs Telemetry: Negative: No significant arrhythmia Abdomen Exam: Positive: Normal bowel sounds, Soft; Negative: Tenderness Extremity Exam: Positive: Edema (b/l LEs ); Negative: Clubbing, Cyanosis, Normal pulses (diminished pedal pulses ) Skin Exam: Positive: Nl turgor and temperature, Lesion (general lesions b/l arms in various stages of healing ) Neuro Exam: Negative: Normal Gait (uses a walker at home ), Normal Speech Psych Exam: Positive: Mood NL Labs and Radiology: reviewed. Chest, 2 view PA, Lat IMPRESSION: Small left lower lobe infiltrate and effusion. Assessment and plan: Mr. Castillo is a 69 year old male who was d/c from the hospital yesterday following a week-long inpatient stay due to influenza. Pt provided the history today as she stated her is 'out of it'. She reported she brought him back to the hospital today as she did not feel he should have been d/c yesterday. reported that the pt is was going to dialysis this morning when he told her he couldn't make it as he was struggling to breathe and he asked to be taken to the ED. She reported he has had a wet cough and his breathing sounded horrible overnight. 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 Dyspnea due to a combination of CHF exacerbation, COPD exacerbation and post viral infection pneumonia. Patient does also have chronic reticulo nodular fibrosis from [address] chests Pneumonia this is probably post influenza pneumonia. Procalcitonin 0.57 On levofloxacin Recent history of hospitalization for Influenza Sputum on 12/15 +ve for Klebsiella ocytoca and Strep. pneumonia; CXR showed no acute disease Blood cultures 1/2 positive for Strep galolyticus. new blood cultures have been ordered. COPD Exacerbation continue nebs, methyl pred will start tapering. cotinue advair ESRD: On HD for 1 year getting extra HD treatments for massive fluid overload. Acute on chronic CHF with preserved EF Fluid management with nephrology and HD Continue Bumex due to [place]olas[place] volume overload Low sodium diet, fluid restriction 1.5 liters. I&Os and daily weights Moderate to SEVERE pulmonary Hypertension with acute on chronic right heart failure due to valvular heart disease and possibly COPD also Echo from 2019 shows moderate to severe mitral regurgitation History of old cerebellar infarct with encephalomalacia since 2013 Continue Plavix and Coumadin DM with neuropathy Continue Levemir ISS with FBS achs Hypoglycemic protocol gabapentin CAD s/p PCI Continue Plavix and coumadin, statin, betablocker, imdur History of DVTs Continue Warfarin as prescribed with daily INR HTN Continue Bisoprolol, Bumex Moderate protein malnutrition low albumin and muscle wasting. BMI falsely not low due to fluid overload. Depression/Anxiety Continue Prozac/Cymbalta Chronic pain Gabapentin on hold as it can worsen pedal edema Butrans on hold Continue prn [place] Anemia of chronic disease on Procrit qmonth BPH flomax Rest less leggs continue pramipexole Constipation Bowel regimen. DVT prophylaxis in place. VS,Fishbone, I+O VS, Fishbone, I+O Laboratory Tests 12/23/19 06:15 Vital Signs Date Time Temp Pulse Resp B/P (MAP) Pulse Ox O2 Delivery O2 Flow Rate FiO2 12/23/19 08:16 142/60 12/23/19 08:16 71 12/23/19 06:00 98.9 18 95 Room Air I&O- Last 24 Hours up to 6 AM 12/23/19 06:00 Intake Total 680 ml Output Total 3375 ml Balance -2695 ml FAUSTINO FERNANDEZ MD Dec 23, 2019 08:50
[2019-12-23] MEDS: SENOKOT S TAB PO SCH ×2 (12:00→20:33)
[2019-12-23] MEDS: GABAPENTIN 100 MG CAP PO SCH (12:00)
[2019-12-23] MEDS: BISACODYL 10 MG SUPP PR SCH (12:15)
[2019-12-23] MEDS ORDERED: LIDOCAINE 1% SDV 5 ML VIAL SQ ONE (12:45)
[2019-12-23] MEDS ORDERED: HEPARIN 1,000 UNITS/ML 10ML VIAL (FOR RADIOLOGY& DIALYSIS ONLY)(J1644-10) IV ONE (12:45)
[2019-12-23] MEDS: WARFARIN SOD 5 MG TAB PO SCH (18:30)
[2019-12-23] MEDS: PRAMIPEXOLE (MIRAPEX) 0.125 MG TAB PO SCH (20:33)
[2019-12-23] MEDS: TAMSULOSIN 0.4 MG CAP PO SCH (20:33)
[2019-12-23] MEDS: ATORVASTATIN 20 MG TAB PO SCH (20:33)
[2019-12-23] MEDS: DULoxetine 30 MG CAP (CYMBALTA) PO SCH (20:34)
[2019-12-23] MEDS ORDERED: LEVEMIR (INSULIN DETEMIR) 1 UNITS/0.01ML SC SCH ×2 (21:00)
[2019-12-23 22:00] VITALS: BP 141/62
[2019-12-24] MEDS: ALBUTEROL SULFATE 2.5 MG/0.5 ML INH NEB SOLN INH SCH ×3 (02:27→11:39)
[2019-12-24 06:00] VITALS: BP 142/63
[2019-12-24 06:35] LABS: HEMATOCRIT 34.7 % (42.0-52.0); HEMOGLOBIN 10.9 g/dl (13.5-17.5); MEAN CORPUSCULAR HEMOGLOBIN 31.2 pg (27.0-33.0); MEAN CORPUSCULAR HGB CONC 31.4 g/dl (32.0-36.5); MEAN CORPUSCULAR VOLUME 99.4 fl (80.0-96.0); PLATELET COUNT, AUTOMATED 235 10^3/uL (150-450); RED BLOOD COUNT 3.49 10^6/uL (4.30-6.10); WHITE BLOOD COUNT 9.9 10^3/uL (4.0-10.0)
[2019-12-24] MEDS: methylPREDNISolone INJ 40 MG/1 ML VIAL (J2920) IV SCH (06:36)
[2019-12-24 06:43] LABS: INR 2.36; PROTHROMBIN TIME 25.7 SECONDS (11.8-14.0)
[2019-12-24 06:52] LABS: CALCIUM LEVEL 8.1 MG/DL (8.8-10.2); CREATININE FOR GFR 4.33 MG/DL (0.70-1.30); GLOMERULAR FILTRATION RATE 14.6 (>49); POTASSIUM SERUM 4.5 MEQ/L (3.5-5.1)
[2019-12-24] MEDS: ADVAIR HFA 230/21MCG INHALER INH SCH (07:57)
--- NOTE | 2019-12-24 08:09 | IPN ---
DATE: 12/23/2019 Mr. Castillo is seen this morning on his bedside. His is present in the room. The patient is feeling much better and currently sitting in the chair. He still has some dyspnea on exertion but denies any chest pain, fever, chills, nausea or vomiting. PHYSICAL EXAMINATION: Temperature 98.9 degrees Fahrenheit, heart rate 70 per minute and respiratory rate 18 per minute. Blood pressure 142/60 mmHg and oxygen saturation 95% on room air. Head is atraumatic. Neck supple and jugular venous distention (JVD) is still moderately elevated even sitting upright in the chair. Lungs have slightly diminished breath sounds at bases and no wheezing today. Heart sounds are irregular in rhythm. Abdomen soft and nontender and bowel sounds are normal. Extremities without any cyanosis or clubbing. Neurologically he is awake, alert and at his baseline mentation. Today's labs show WBC count 8.6, hemoglobin 11.2 and hematocrit 35.4. Platelets are 197. Sodium 132, potassium 4.7, BUN 36 and creatinine 3.37. Glucose 301 and calcium 8.2. PROBLEMS: 1. End-stage renal disease. The patient was dialyzed yesterday which was his regular day. His next dialysis will be scheduled for Wednesday. 2. Shortness of breath and volume overload. The patient has been hypervolemic and he has been dialyzed or ultrafiltrated consecutively for the last 3 days. We will try to ultrafiltrate again today and try to remove another 2.5 liters of fluid. His volume status has improved significantly. The patient understands to follow fluid restriction of 1500 mL per day and I discussed with the patient and his at length once again today. 3. Anemia. At present, his anemia is stable and does not need any intervention. DISPOSITION: From a renal standpoint, the patient is getting ready for discharge and likely to be discharged tomorrow.
[2019-12-24] MEDS ORDERED: LEVEMIR (INSULIN DETEMIR) 1 UNITS/0.01ML SC SCH (09:00)
[2019-12-24] MEDS: BISACODYL 10 MG SUPP PR SCH (09:00)
[2019-12-24] MEDS: FLUTICASONE PROP 0.05% NASAL SPRAY 16 GM (FLONASE) SCH (09:22)
[2019-12-24] MEDS: AZELASTINE 137MCG NASAL SPY 30 ML (ASTELIN) SCH (09:22)
[2019-12-24 09:25] VITALS: BP 127/50
[2019-12-24] MEDS: CLOPIDOGREL 75 MG TAB PO SCH (09:25)
[2019-12-24] MEDS: ISOSORBIDE MON. (IMDUR) 30 MG XR TAB PO SCH (09:25)
[2019-12-24] MEDS: (RENVELA) SEVELAMER **CARBONate** 800 MG TAB PO SCH ×2 (09:25→12:32)
[2019-12-24] MEDS: SENOKOT S TAB PO SCH (09:25)
[2019-12-24] MEDS: BUMETANIDE 1 MG TAB PO SCH (09:25)
[2019-12-24] MEDS: FLUoxetine 20 MG CAP PO SCH (09:25)
[2019-12-24] MEDS: PANTOPRAZOLE 40MG TAB (PROTONIX) PO SCH (09:26)
[2019-12-24] MEDS: bisoproloL fumarate 5 MG TAB PO SCH (09:26)
[2019-12-24] MEDS: HumaLOG INSULIN (NovoLOG) PER UNIT SC SCH ×2 (09:27→12:33)
[2019-12-24] MEDS: MIRALAX *UNIT DOSE* 17GM PACKET PO PRN (09:28)
[2019-12-24] MEDS ORDERED: LEVO500T3 PO (11:48)
[2019-12-24] MEDS ORDERED: LevoFLOXacin 500 MG TABLET PO ONE (12:00)
[2019-12-24] MEDS: GABAPENTIN 100 MG CAP PO SCH (12:32)
--- NOTE | 2019-12-25 14:34 | IPN ---
DATE OF VISIT: 12/24/2019 Mr. Castillo is seen this morning on his bedside. His family is present in the room, including his son and . Patient is feeling much better. He is currently using his nebulizer treatment. He had ultrafiltration yesterday and we have removed a total of about 10 liters of fluids since admission. He is feeling much better now, though his weight has changed only slightly since admission. Patient has no fever or chills at present. He denies any nausea or vomiting. His son had several questions and he was quite upset. I explained to him at length about his condition and situation and answered his questions to the best of my ability. On physical exam, patient is awake and alert and without any acute distress. Temperature 98.3 degrees Fahrenheit, heart rate 68 per minute and respiratory rate 18 per minute. Blood pressure 127/50 mmHg and oxygen saturation 99% on room air. Head is atraumatic. Neck supple and jugular venous distention (JVD) is only mildly elevated. Heart sounds are irregular in rhythm and lungs have slightly diminished breath sounds and a few basilar rales. Abdomen soft and nontender, and bowel sounds are normal. Extremities without any cyanosis or clubbing. Neurologically, he is awake, alert and oriented times three. Today's labs show WBC count 9.9, hemoglobin 10.9 and hematocrit 34.7. Platelets 235. Sodium 131, potassium 4.5, CO2 26, BUN 57 and creatinine 4.33. Glucose 364 and calcium 8.1. PROBLEMS: 1. End-stage renal disease. Patient is regularly dialyzed on Wednesday, Wednesday and Wednesday schedule. He was dialyzed on Wednesday and will be scheduled for next dialysis tomorrow as outpatient. 2. Congestive heart failure/hypervolemia. Patient was quite decompensated and with dialysis and ultrafiltration his volume status has improved significantly since admission. I have discussed with patient and his family at length about need for fluid restriction. His son is questioning about need for daily dialysis. I do not feel that at this point he is in need for daily hemodialysis. We will continue to monitor him closely. His family also wishes to do peritoneal dialysis and once he is cleared by cardiology for peritoneal dialysis catheter placement then we will proceed. 3. Hyponatremia. His sodium is only slightly low and blood sugar is 364. Hyperglycemia is also contributing to his hyponatremia and will likely improve over next few days. 4. Anemia. His anemia has been stable and does not need any urgent intervention. DISPOSITION: From a renal standpoint, patient can be discharged to home today and he will followup in the outpatient dialysis clinic.
--- NOTE | 2019-12-26 16:24 | DS.PDOC ---
Discharge Summary General Date of Admission Dec 20, 2019 at 15:00 Date of Discharge 12/24/19 Discharge Summary PROCEDURES PERFORMED DURING STAY: [None]. DISCHARGE DIAGNOSES: Acute on chronic CHF with preserved EF. Moderate to Severe mitral regurgitation Severe pulmonary hypertension with acute on chronic right heart failure. 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 Cervical Spinal fusion 06/2003: C3 through five cervical discectomy and ventral fusion plating. Colonoscopy Carpal tunnel release 2 cardiac stents in LAD in 05/2019 L ARM BREAK REPAIR 11/1981 R LEG BREAK REPAIR 02/1982 FISTULA PLACED IN RIGHT ARM 2018 COMPLICATIONS/CHIEF COMPLAINT: Chf Exacerbation. HISTORY OF PRESENT ILLNESS: See history and physical HOSPITAL COURSE: Mr. Castillo is a 69 year old male who was d/c from the hospital yesterday following a week-long inpatient stay due to influenza. Pt provided the history today as she stated her is 'out of it'. She reported she brought him back to the hospital today as she did not feel he should have been d/c yesterday. reported that the pt is was going to dialysis this morning when he told her he couldn't make it as he was struggling to breathe and he asked to be taken to the ED. She reported he has had a wet cough and his breathing sounded horrible overnight. 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 Dyspnea due to a combination of CHF exacerbation, COPD exacerbation and post viral infection pneumonia. Patient does also have chronic reticulo nodular fibrosis from [address] chests He had daily HD treatments for 4 days with improvement of fluid status and respiratory status Pneumonia this is probably post influenza pneumonia. Procalcitonin 0.57 On levofloxacin Recent history of hospitalization for Influenza Sputum on 12/15 +ve for Klebsiella ocytoca and Strep. pneumonia; CXR showed no acute disease Sputum this admission grew Bordetella bronchiseptica and few fungi Blood cultures 1/2 positive for Strep galolyticus. New blood cultures 2/2 were negative. COPD Exacerbation continue nebs continue advair ESRD: On HD for 1 year getting extra HD treatments for massive fluid overload. Acute on chronic CHF with preserved EF Fluid management with nephrology and HD Continue Bumex due to nicolasa volume overload Low sodium diet, fluid restriction 1.5 liters. daily weights Moderate to SEVERE pulmonary Hypertension with acute on chronic right heart failure due to valvular heart disease and possibly COPD also Echo from 2019 shows moderate to severe mitral regurgitation History of old cerebellar infarct with encephalomalacia since 2013 Continue Plavix and Coumadin DM with neuropathy Continue Levemir ISS with FBS achs gabapentin CAD s/p PCI Continue Plavix and coumadin, statin, betablocker, imdur History of DVTs Continue Warfarin as prescribed with daily INR HTN Continue Bisoprolol, Bumex Moderate protein malnutrition low albumin and muscle wasting. BMI falsely not low due to fluid overload. Depression/Anxiety Continue Prozac/Cymbalta Chronic pain Gabapentin on hold as it can worsen pedal edema Butrans on hold Continue prn [place] Anemia of chronic disease on Procrit qmonth BPH flomax Rest less leggs continue pramipexole Constipation Bowel regimen. DISCHARGE MEDICATIONS: Please see below. ALLERGIES: Please see below. PHYSICAL EXAMINATION ON DISCHARGE: VITAL SIGNS: Please see below. General Exam: Positive: Alert, No Acute Distress Eye Exam: Positive: Conjunctiva & lids normal; Negative: Sclera icteric ENT Exam: Positive: Atraumatic, Mucous membr. moist/pink, Pharynx Normal Neck Exam: Positive: Supple; Negative: thyromegaly Chest Exam: Positive: Normal air movement (no use of accessory muscles; 97% O2 on RA ), Wheezing (b/l lungs ) Heart Exam: Positive: Rate Normal, Normal S1, Normal S2, Murmurs (2-3/6 SM ); Negative: Gallops, Rubs Telemetry: Negative: No significant arrhythmia Abdomen Exam: Positive: Normal bowel sounds, Soft; Negative: Tenderness Extremity Exam: Positive: Edema (b/l LEs ); Negative: Clubbing, Cyanosis, Normal pulses (diminished pedal pulses ) Skin Exam: Positive: Nl turgor and temperature, Lesion (general lesions b/l arms in various stages of healing ) Neuro Exam: Negative: Normal Gait (uses a walker at home ), Normal Speech Psych Exam: Positive: Mood NL LABORATORY DATA: Please see below. ACTIVITY: [As tolerated]. DIET: Carb consisitent, 2 gram sodium diet with 1.5 liters fluid restriction DISPOSITION: Home, Self-Care. DISCHARGE INSTRUCTIONS: PMD in 2 weeks DISCHARGE CONDITION: [Stable]. TIME SPENT ON DISCHARGE: 35 minutes. Vital Signs/I&Os Vital Signs Date Time Temp Pulse Resp B/P (MAP) Pulse Ox O2 Delivery O2 Flow Rate FiO2 12/24/19 09:25 127/50 12/24/19 06:00 98.3 68 18 99 Room Air Microbiology Microbiology 12/23/19 Blood Culture - Preliminary, Resulted No Growth after 72 hours. All specime... 12/23/19 Blood Culture - Preliminary, Resulted No Growth after 72 hours. All specime... 12/21/19 Gram Stain - Final, Complete 12/21/19 Sputum Culture - Final, Complete Bordetella Bronchiseptica Yeast Like Organism 12/20/19 Blood Culture - Final, Complete Strep Gallolyticus Ssp Pasteu 12/20/19 Blood Culture - Final, Complete NO GROWTH AFTER 5 DAYS Discharge Medications Scheduled Atorvastatin Calcium (Atorvastatin Calcium) 40 Mg Tab, 40 MG PO QPM, (Reported) Azelastine HCl (Azelastine HCl) 0.1% [place].pump, 2 SPRAY NA DAILY, (Reported) Bisoprolol Fumarate (Bisoprolol Fumarate) 5 Mg Tablet, 5 MG PO BID, (Reported) Bumetanide (Bumetanide) 2 Mg Tablet, 2 MG PO DAILY, (Reported) Buprenorphine (Butrans) 20 Mcg/Hr Dis, 20 MCG TD QWEEK, (Reported) APPLIES ON FRIDAYS, PATCH IS CURRENTLY APPLIED TO ABDOMEN Calcitriol (Calcitriol) 0.25 Mcg Cap, 0.25 MCG PO 3XW, (Reported) RECEIVES AT DIALYSIS MON, WED, FRI Clopidogrel Bisulfate (Plavix) 75 Mg Tablet, 75 MG PO DAILY, (Reported) Duloxetine Hcl (Cymbalta) 60 Mg Cap, 60 MG PO QHS, (Reported) Epoetin Lopez (Procrit) 20,000 Unit/Ml Inj, 20,000 UNIT INJ QMONTH, (Reported) Ergocalciferol (Vitamin D2) (Vitamin D2) 50,000 Units Cap, 50,000 UNITS PO QWEEK, (Reported) MONDAYS Fluoxetine Hcl (Fluoxetine HCl) 20 Mg Capsule, 20 MG PO DAILY, (Reported) TAKES AT NOON Fluticasone Propion/Salmeterol (Advair Hfa 230-21 Mcg Inhaler) 1 Aer Aer, 1 PUFF INH BID, (Reported) RX SAY 2 PUFFS BID, PATIENT STATES ONLY DOING 1 PUFF BID Fluticasone Propionate (Fluticasone Propionate) 50 Mcg/Act Spr, 2 SPRAY NA DAILY, (Reported) Gabapentin (Gabapentin) 100 Mg Capsule, 100 MG PO DAILY, (Reported) TAKES AT NOON Insulin Glargine (Lantus) 1 Units/0.01 Ml Susp, 8 UNITS SC DAILY, (Reported) Insulin Glargine (Lantus) 1 Units/0.01 Ml Susp, 5 UNITS SC QHS, (Reported) Insulin Lispro (Humalog Kwikpen U-100) 100 Unit/1 Ml Insuln.pen, 7 UNITS SC BID, (Reported) BREAKFAST AND DINNER Insulin Lispro (Humalog Kwikpen U-100) 100 Unit/1 Ml Insuln.pen, 5 UNITS SC DAILY, (Reported) LUNCH Isosorbide Mononitrate (Isosorbide Mononitrate ER) 30 Mg Tab.er.24h, 30 MG PO DAILY, (Reported) Levofloxacin (Levofloxacin) 500 Mg Tablet, 1 TAB PO Q48H On 12/26/19 and 12/28/19 and 12/30/19 Lidocaine/Prilocaine (Lidocaine-Prilocaine Cream) 2.5%/2.5% Cream..g., 1 DOSE TOP 3XW, (Reported) APPLY TO PORT PRIOR TO DIALYSIS Sunspot-3/Dha/Epa/Fish Oil (Fish Oil 1,000 mg Softgel) 1 Each Capsule, 1,000 MG PO TID, (Reported) Pantoprazole Sodium (Pantoprazole Sodium) 40 Mg Tablet.dr, 40 MG PO DAILY, (Reported) Polyethylene Glycol 3350 (Miralax) 1 Pow Pow, 17 GM PO BID, (Reported) Pramipexole Di-HCl (Mirapex) 0.125 Mg Tablet, 0.125 MG PO QHS, (Reported) Sevelamer Carbonate (Renvela Oral Suspension) 0.8 Gm Powd.pack, 0.8 GRAM PO WM, (Reported) Tamsulosin HCl (Flomax) 0.4 Mg Cap, 0.4 MG PO QHS, (Reported) Warfarin Sodium (Coumadin) 5 Mg Tablet, 5 MG PO 5XW, (Reported) QPM: SUN, TUES, WED, TH, SAT Warfarin Sodium (Warfarin Sodium) 5 Mg Tablet, 7.5 MG PO 2XW, (Reported) QPM: MON, FRI Scheduled PRN Acetaminophen (Acetaminophen) 500 Mg Tab, 1,000 MG PO Q6H PRN for PAIN, (Reported) Albuterol Sulf (Albuterol Sulfate) 2.5 Mg/3 Ml Nebu, 2.5 MG INH Q4H PRN for SOB/WHEEZING, (Reported) Albuterol Sulfate (Proair Hfa) 108 Mcg/Act Aer, 2 PUFF INH Q4HP PRN for SOB/WHEEZING, (Reported) Glucagon,Human Recombinant (Glucagon Emergency Kit) 1 Mg Kit, 1 MG INJ ASDIRECTED PRN for LOW BLOOD SUGAR, (Reported) Hydrocodone/Acetaminophen (Hydrocodone-Acetamin 5-325 mg) 1 Tab Tab, 1 TAB PO Q6H PRN for PAIN, (Reported) Nitroglycerin (Nitroglycerin) 0.4 Mg Tab.subl, 0.4 MG SL NITRO PRN for CHEST PAIN, (Reported) Allergies Coded Allergies: carbamazepine (Verified Allergy, Severe, ANAPHYLAXIS, 12/20/19) phenobarbital (Verified Allergy, Severe, ANAPHYLAXIS, 01/29/19) phenytoin (Verified Allergy, Severe, ANAPHYLAXIS, 01/29/19) Penicillins (Verified Allergy, Intermediate, ITCHING, 01/29/19) bacitracin (Verified Allergy, Intermediate, FACIAL SWELLING, 01/29/19) latex (Verified Allergy, Intermediate, SEVERE RASH AND HIVES, 02/02/19) lisinopril (Verified Allergy, Intermediate, RASH, 01/29/19) meperidine (Verified Allergy, Intermediate, ITCHING, 01/29/19) neomycin (Verified Allergy, Intermediate, FACIAL SWELLING, 01/29/19) pioglitazone (Verified Allergy, Intermediate, EDEMA, 01/29/19) polymyxin B (Verified Allergy, Intermediate, FACIAL SWELLING, 01/29/19) metformin (Verified Allergy, Mild, RASH, 01/29/19) Aminoglycosides (Verified Allergy, Unknown, 01/29/19) NSAIDS (Non-Steroidal Anti-Inflamma (Verified Allergy, Unknown, 01/29/19) gabapentin (Verified Allergy, Unknown, 01/29/19) pregabalin (Verified Allergy, Unknown, 01/29/19) capsaicin (Verified Adverse Reaction, Intermediate, EXCESSIVE BURNING, 01/29/19) dapsone (Verified Adverse Reaction, Intermediate, ANEMIA, 01/29/19) levofloxacin (Verified Adverse Reaction, Intermediate, HEADACHE, 01/29/19) ropinirole (Verified Adverse Reaction, Intermediate, ELEVATED LIVER ENZYMES, 01/29/19) rosuvastatin (Verified Adverse Reaction, Unknown, HEADACHE, 01/29/19) FAUSTINO FERNANDEZ MD Dec 26, 2019 16:24
== END 2019-12-24 13:15 | disposition home or self-care (01) | DRG 291 ==
LOC: EDBD 12:14 → M ED 12:14 → M ED INP 15:00 → ENRESERVDT 15:36 → ENRESERVTM 15:36 → M MSPAV 15:55
PROVIDERS: ADMIT Internal Medicine Nephrology; ATTEND Internal Medicine Nephrology
PROC: 5A1D70Z Performance of Urinary Filtration, Intermittent, Less than 6 Hours Per Day (ICD-10-PCS; principal; 2019-12-20)
DX: I13.2 Hypertensive heart and chronic kidney disease with heart failure and with stage 5 chronic kidney disease, or end stage renal disease (principal); N18.6 End stage renal disease; I50.33 Acute on chronic diastolic (congestive) heart failure; J44.1 Chronic obstructive pulmonary disease with (acute) exacerbation; E44.0 Moderate protein-calorie malnutrition; E87.1 Hypo-osmolality and hyponatremia; Z99.2 Dependence on renal dialysis; Z79.82 Long term (current) use of aspirin; Z79.01 Long term (current) use of anticoagulants; Z79.899 Other long term (current) drug therapy; Z79.4 Long term (current) use of insulin; Z88.0 Allergy status to penicillin; Z88.1 Allergy status to other antibiotic agents; Z88.8 Allergy status to other drugs, medicaments and biological substances; Z91.040 Latex allergy status; Z91.02 Food additives allergy status; E11.42 Type 2 diabetes mellitus with diabetic polyneuropathy; E78.5 Hyperlipidemia, unspecified; E11.22 Type 2 diabetes mellitus with diabetic chronic kidney disease; D63.1 Anemia in chronic kidney disease; I25.10 Atherosclerotic heart disease of native coronary artery without angina pectoris; Z98.61 Coronary angioplasty status; Z86.73 Personal history of transient ischemic attack (TIA), and cerebral infarction without residual deficits; F41.8 Other specified anxiety disorders; I27.29 Other secondary pulmonary hypertension; I34.0 Nonrheumatic mitral (valve) insufficiency; I87.2 Venous insufficiency (chronic) (peripheral); L13.0 Dermatitis herpetiformis; K21.9 Gastro-esophageal reflux disease without esophagitis; G25.81 Restless legs syndrome; G89.29 Other chronic pain; G47.33 Obstructive sleep apnea (adult) (pediatric); M51.9 Unspecified thoracic, thoracolumbar and lumbosacral intervertebral disc disorder; M81.0 Age-related osteoporosis without current pathological fracture; Z87.81 Personal history of (healed) traumatic fracture; M43.22 Fusion of spine, cervical region; Z95.1 Presence of aortocoronary bypass graft; Z86.718 Personal history of other venous thrombosis and embolism; R06.00 Dyspnea, unspecified

== ENCOUNTER → 2020-02-06 | Outpatient (REF) | payer MEDICARE, MEDICAID ==
[~2020-02-06] MED LIST changes: +LEVO500T3 PO; +OLOP2.5D3 OP; -PATA0.2S OP
== END ==
LOC: M LAB REF 18:50
PROVIDERS: ATTEND Dermatology
DX: L73.9 Follicular disorder, unspecified (principal)

== ENCOUNTER → 2020-02-06 | Outpatient (CLI) | payer MEDICARE, MEDICAID ==
[2020-02-08 14:06] LABS: TISSUE TRANSGLUTAMINASE IgA <2 U/mL (0-3); TISSUE TRANSGLUTAMINASE IgG 3 U/mL (0-5)
== END ==
LOC: M WUC 16:31
PROVIDERS: ATTEND Dermatology
DX: R21 Rash and other nonspecific skin eruption (principal)
CPT/HCPCS: 11104; 11105; 36415; 83516; G0463

== ENCOUNTER → 2020-02-27 | Outpatient (CLI) | payer MEDICARE, MEDICAID ==
--- NOTE | 2020-02-29 02:08 | ECWPNPC ---
PATIENT NAME: YOVANI VALLEJO : 1950 GENDER: MALE VISIT DATE: 02/27/2020 DISCHARGE DATE: 02/27/20 0900 VISIT LOCKED DATE TIME: PHYSICIAN: SAVANNA PARR RESOURCE: SAVANNA PARR REASON FOR APPOINTMENT 1. FOOT/LEGS - PAT COMPLETED HISTORY OF PRESENT ILLNESS HISTORY OF PRESENT ILLNESS: PATIENT IS AGREEABLE TO TELEPHONE VISIT TODAY. CHIEF AREA OF PAIN IS LOW BACK. RATING LOW BACK PAIN A 6/10 VAS. HAS BEEN VERY SICK OVER THE PAST FEW MONTHS. HE WAS HOSPITALIZED WITH PNEUMONIA AND WAS FOUND TO HAVE HAD A STROKE. HISTORY OF FALLING FREQUENTLY. FOLLOWING WITH NEUROLOGY. CONTINUES TO ATTEND DIALYSIS. FINDS BUTRANS-PATCH 20 MCG SOMEWHAT HELPFUL AT REDUCING HIS PAIN AND KEEPING HIM FUNCTIONAL. PAIN THE PATIENT DESCRIBES THE PAIN... FALL RISK SCREENING: SCREENING :NO FALLS REPORTED IN THE LAST YEAR CURRENT MEDICATIONS TAKING CALCITRIOL 0.25 MCG CAPSULE 1 CAPSULE ORAL 3 X WEEK- WITH DIALYSIS TAKING PROCRIT 27074 UNIT/ML SOLUTION INJECTION MONTHLY TAKING PROVENTIL HFA 108 (90 BASE) MCG/ACT AEROSOL SOLUTION 2 PUFFS INHALATION EVERY 4 HOURS NEEDED TAKING FISH OIL 1000 MG CAPSULE 1 CAP(S) ORALLY THREE TIMES A DAY TAKING PEN NEEDLES 31G X 5 MM ULTRA FINE 1 EACH INTRADERMALLY DIAG CODE 250.6 FOUR TIMES A DAY TAKING BLOOD PRESSURE MONITOR - KIT DIRECTED TAKING FULL KIT NEBULIZER SET - MISCELLANEOUS DIRECTED DX J44.9 (COPD) DAILY TAKING MIRALAX - PACKET 1 PACKET MIXED WITH 8 OUNCES OF FLUID ORALLY TWICE DAILY TAKING VITAMIN D (ERGOCALCIFEROL) 27750 UNIT CAPSULE 1 CAPSULE ORALLY ONCE A WEEK-WEDNESDAY TAKING BISOPROLOL FUMARATE 5 MG TABLET 1 TABLET ORALLY TWICE DAILY TAKING PRAMIPEXOLE DIHYDROCHLORIDE 0.25 MG TABLET 1 TABLET ORALLY BID TAKING ISOSORBIDE MONONITRATE ER 30 MG TABLET EXTENDED RELEASE 24 HOUR 1 TABLET ORAL ONCE A DAY TAKING FLONASE ALLERGY RELIEF 50 MCG/ACT SUSPENSION 2 SPRAYS IN EACH NOSTRIL NASALLY DAILY TAKING AZELASTINE HCL 137 MCG/SPRAY SOLUTION 1 SPRAY IN EACH NOSTRIL NASALLY DAILY TAKING ADVAIR HFA 230-21 MCG/ACT AEROSOL 2 PUFFS INHALATION TWICE A DAY TAKING NOVOLOG 100 UNIT/ML SOLUTION DIRECTED SUBCUTANEOUS 7 UNITS BREAKFAST AND DINNER, 5 UNITS LUNCH, NOTES: HOSP D/C 12/19/19= NOVOLOG TAKING GLUCAGON EMERGENCY 1 MG KIT DIRECTED INJECTION DAILY NEEDED TAKING LANTUS 100 UNIT/ML SOLUTION TWICE A DAY SUBCUTANEOUS 8 UNITS IN AM AND 5 UNITS AT BEDTIME TAKING CYMBALTA 60 MG CAPSULE DELAYED RELEASE PARTICLES 1 CAPSULE ORALLY BEFORE BEDTIME TAKING FLUOXETINE HCL 20 MG CAPSULE 1 CAPSULE ORALLY ONCE A DAY TAKING PLAVIX 75 MG TABLET 1 TABLET ORALLY ONCE A DAY TAKING NITROGLYCERIN 0.4 MG TABLET SUBLINGUAL DIRECTED SUBLINGUAL Q 5MIN X3 FOR CHEST PAIN TAKING COUMADIN 5 MG TABLET DIRECTED ORALLY 10 MG M, F 7.5 MG T, W,TH, SA, CLINE TAKING GABAPENTIN 100 MG CAPSULE 1 CAPSULE ORALLY ONCE A DAY TAKING ACETAMINOPHEN 500 MG TABLET 2 TABLETS NEEDED ORALLY EVERY 6 HOURS FOR PAIN MDD 3000MG TAKING BUMETANIDE 2 MG TABLET 1 TAB ORALLY DAILY TAKING LIDOCAINE-PRILOCAINE 2.5-2.5 % CREAM DIRECTED EXTERNALLY TO PORT 3 TIMES WEEKLY PRIOR TO DIALYSIS TAKING RENVELA 0.8 GM PACKET 1 PACKET MIXED WITH 30 ML OF WATER WITH MEALS ORALLY THREE TIMES A DAY TAKING TAMSULOSIN HCL 0.4 MG CAPSULE EXTENDED RELEASE 24 HOUR 1 CAPSULE 30 MINUTES AFTER THE SAME MEAL EACH DAY ORALLY ONCE A DAY TAKING MECLIZINE HCL 12.5 MG TABLET 2 TABLETS NEEDED ORALLY ONCE A DAY NEEDED FOR VERTIGO, NOTES: PRN TAKING ZOFRAN ODT 4 MG TABLET DISINTEGRATING 1 TABLET ON THE TONGUE AND ALLOW TO DISSOLVE ORALLY 3 TIMES A DAY NEEDED FOR NAUSEA, NOTES: PRN TAKING BUTRANS 20 MCG/HR PATCH WEEKLY 1 PATCH TO SKIN TRANSDERMAL APPLY 1 PATCH Q 7 DAYS MDD=1 TAKING PANTOPRAZOLE SODIUM 40 MG TABLET DELAYED RELEASE 1 TABLET ORALLY ONCE A DAY TAKING LIPITOR 40 MG TABLET 1 TABLET ORALLY ONCE A DAY TAKING ALBUTEROL SULFATE (2.5 MG/3ML) 0.083% NEBULIZATION SOLUTION 3 ML INHALATION EVERY 4 HRS NEEDED FOR SOB/WHEEZING TAKING BETAMETHASONE DIPROPIONATE AUG 0.05 % CREAM 1 APPLICATION EXTERNALLY TO ARMS, LEGS, AND TRUNK (LARGE AREA) BID TAKING NORCO 5-325 MG TABLET 1 TABLET NEEDED ORALLY MDD4 FOUR TIMES DAILY NEEDED TAKING CLONAZEPAM 0.5 MG TABLET 0.5 TABLET AT BEDTIME X3 DAYS; 0.5 TAB BID ORALLY ONCE A DAY TAKING PROLIA 60 MG/ML SOLUTION PREFILLED SYRINGE DIRECTED SUBCUTANEOUS EVERY 6 MONTHS NOT-TAKING HYDROXYZINE HCL 50 MG TABLET 1 TABLET NEEDED ORALLY FOUR TIMES DAILY NEEDED FOR ITCHING, NOTES: THREE TIMES A DAY MEDICATION LIST REVIEWED AND RECONCILED WITH THE PATIENT PAST MEDICAL HISTORY DVT CHRONIC PHLEBITIS CHRONIC VENOUS INSUFFICIENCY PERIPHERAL NEUROPATHY TYPE 2 DIABETES--DR Amisha PRADO HYPERLIPIDEMIA HTN COPD HX OF DEPRESSION DDD/DJD GERD DERMATITIS HERPETIFORMIS-- + BX 05/03 DR MCDONALD ADENOMATOUS COLON POLYP 2009 RESTLESS LEG SYNDROME CELIAC DISEASE RIGTH SHOULDER NERVE IMPINGEMENT/RIGHT CARPEL TUNNEL - DR. PRADO GORDON ON CPAP SUBCLINICAL HYPOTHYROIDISM 06/07 DIVERTICULOSIS 04/2019 KIDNEY DISEASE STAGE 4 REGURING DIALYSIS 3 TIMES WEEKLY L2 VERTERAE FX DERMATITIS HERPETIFORMIS L3 FRACTURE FLU/PNEUMONIA STROKE ALLERGIES ACTOS: EDEMA - SIDE EFFECTS DEMEROL: HIVES - ALLERGY DILANTIN: ANAPHYLAXIS - ALLERGY GLUCOPHAGE: RASH - ALLERGY LEVAQUIN: HEAD ACHE - SIDE EFFECTS PHENOBARBITAL: ANAPHYLAXIS - ALLERGY TEGRETOL: ANAPHYLAXIS - ALLERGY PENICILLIN (FOR ALLERGIES USE ONLY): HIVES - ALLERGY TRIPLE ANTIBIOTIC: FACIAL SWELLING - ALLERGY REQUIP: ELEVATED LIVER ENZYMES LATEX (FOR ALLERGY USE ONLY): RASH - ALLERGY CRESTOR: HEADACHE LYRICA: DIDN'T WORK - SIDE EFFECTS CAPSACIN (TOPICALLY): EXCESSIVE BURNING - SIDE EFFECTS LISINOPRIL: RASH - SIDE EFFECTS GABAPENTIN: DIDN'T WORK - LACK OF THERAPEUTIC EFFECT DAPSONE: ANEMIA - SIDE EFFECTS NSAIDS: CONTRAINDICATION BEES: ANAPHYLAXIS - ALLERGY SURGICAL HISTORY CERVICAL SPINE FUSION 06/2003 L ARM BREAK REPAIR 11/1981 R LEG BREAK REPAIR 02/1982 COLONSOCOPY (ADENOMATOUS POLYP 2009) 2003,2009 EGD 2009 ENDOSCOPY AND COLONOSCOPY 2015DEC 13 FISTUAL PLACED IN RIGHT ARM 2018OCT 26 STENTS PLACED IN LAD 05/2019 FAMILY HISTORY FATHER: MOTHER: FATHER WITH SKIN CANCER, DENIES FH OF MELANOMA. SOCIAL HISTORY GENERAL: TOBACCO USE ARE YOU A: NONSMOKER. LATEX QUESTIONNAIRE LATEX ALLERGY : HAVE YOU EVER DEVELOPED ANY TYPE OF REACTION AFTER HANDLING LATEX PRODUCTS SUCH RUBBER GLOVES, CONDOMS, DIAPHRAGMS, BALLOONS, SOCKS, OR UNDERWEAR?YES - PLEASE INDICATE :RUBBER GLOVES LATEX ALLERGY : HAVE YOU EVER DEVELOPED ANY TYPE OF REACTION DURING OR AFTER DENTAL APPOINTMENT, VAGINAL/RECTAL EXAMINATION, SURGICAL PROCEDURE, OR ANY OTHER EXPOSURE?NO LATEX RISK : HAVE YOU EVER HAD ANY DIFFICULTY BREATHING OR HIVES AFTER EATING OR HANDLING ANY FRUITS, OR VEGETABLES; SUCH KIWI, BANANAS, STONE FRUITS, OR CHESTNUTSNO LATEX RISK : DO YOU HAVE A PREVIOUS PERSONAL HISTORY OF MORE THAN NINE SURGERIES, SPINA BIFIDA, OR REPEATED CATHERIZATIONS? NO LATEX RISK : ARE YOU FREQUENTLY EXPOSED TO LATEX PRODUCTS IN YOUR OCCUPATION?NO DATE ASKED : 02/06/2020 BMI CARE GOAL FOLLOW-UP ABOVE NORMAL BMI FOLLOW-UPDIETARY MANAGEMENT EDUCATION, GUIDANCE, AND COUNSELING ALCOHOL SCREENING DID YOU HAVE A DRINK CONTAINING ALCOHOL IN THE PAST YEAR?NO POINTS0 INTERPRETATIONNEGATIVE RECREATIONAL DRUG USE DRUG USE?NO CAFFEINE CAFFEINE USE?YES HOW OFTEN AND HOW MUCH? 2 CUPS COFFEE/DAY SEXUAL HX HAD SEX IN THE LAST 12 MONTHS (VAGINAL, ORAL, OR ANAL)?NO HAVE YOU EVER HAD AN STD?NO HIV / HEP-C SCREENING HIV TEST OFFERED TO PATIENT:YES DATE OFFERED:02/08/2017 TEST ACCEPTED:NO HEP-C TEST OFFERED TO PATIENT:YES DATE OFFERED:02/08/2017 REASON:PATIENT DECLINED TEST ACCEPTED:NO REASON:PATIENT DECLINED AMISH [id number] CATHOLIC LANGUAGE LANGUAGES SPOKEN:MALTESE EDUCATION LEVEL OF EDUCATION:NOT FINISHED HIGH SCHOOL LEARNING BARRIERS / SPECIAL NEEDS CHANGE FROM LAST VISIT?YES 02/26/2020 BARRIERS TO LEARNING?NO HEARING IMPAIRED?YES :HEARING AIDES VISION IMPAIRED?YES :CORRECTIVE LENSES COGNITIVELY IMPAIRED?NO READINESS TO LEARN?YES LEARNING PREFERENCES?YES :DEMONSTRATION/VERBAL INSTRUCTION LEARNING CAPABILITIES PRESENT?YES EMOTIONAL BARRIERS?NO SPECIAL DEVICES?YES :CANE ASSISTANT CASINO SHIFT MANAGER NEEDED?NO DOMESTIC VIOLENCE DO YOU FEEL SAFE IN YOUR ENVIRONMENT?YES OCCUPATION: DISABLED. DIET: NO ADDED SALT, LOW FAT, LOW CHOLESTEROL. EXERCISE: NONE. MARITAL STATUS: . OTHERS AT HOME: SPOUSE. NEW PATIENT PAIN DIARY TODAY'S VISITNOTES 02/26/2020 PATIENT DESCRIBES PAIN :ACHING, IT COMES AND GOES, OTHER CRAMPING - LEGS FROM 0-10, WHAT LEVEL IS YOUR PAIN TODAY?4 PAIN CLINIC PFS, CLERGY, PUBLIC HEALTH REFERRALS PFS REFERRAL NEEDED?NO CLERGY REFERRAL NEEDED?NO PUBLIC HEALTH REFERRAL NEEDED?NO WAS THE PROVIDER NOTIFIED OF ANY PERTINENT INFO? N/A HAS THE PATIENT BEEN EDUCATED REGARDING HIS/HER PLAN OF CARE?YES HAS THE PATIENT BEEN EDUCATED REGARDING PAIN, THE RISK FOR PAIN, THE IMPORTANCE OF EFFECTIVE PAIN MANAGEMENT, AND THE PAIN ASSESSMENT PROCESS?YES HOUSING: OWNS HOME. ADVANCE DIRECTIVE ADVANCE DIRECTIVE DISCUSSED WITH PATIENT:YES HAS HCP [phone] DAUGHTER ELIZABETH VALLEJO [phone] SON PAM VALLEJO [phone] HOSPITALIZATION/MAJOR DIAGNOSTIC PROCEDURE CERVICAL SPINE FUSION SX 06/2003 L ARM BREAK REAPIR SX 11/1981 R LEG BREAK REPAIR SX 02/1982 PNEUMONIA 03/2009 BOWEL IMPACTION 09/2009 KINDEY FAILURE 02/2017 CHF 01/2019 STENTS 05/2019 FLU - ALSO DISCOVERED STROKE ON CT 11/2019 PNEUMONIA 11/2019 REVIEW OF SYSTEMS REVIEWED BY: PROVIDER: SAVANNA PATEL . CONSTITUTIONAL: ANY CHANGE IN YOUR MEDICAL CONDITION? YES, PATIENT HOSPITALIZED IN NOVEMBER WITH THE FLU, HEAD CT PERFORMED DURING THIS STAY WHERE THEY DISCOVERED A STROKE (NOT SURE WHEN PATIENT HAD THE STROKE). PATIENT WAS THEN RELEASES AND RE-HOSPITALIZED WITH PNEUMONIA RIGHT AFTER. PATIENT HAD PHYSICAL/OCCUPATIONAL THERAPY FOLLOWING HIS TIME IN THE HOSPITAL AND IS NOW SUPPOSED TO BE USING A CANE TO AMBULATE WITH. ALSO STATES THAT THE NEUROLOGIST IS CURRENTLY FOLLOWING THE PATIENT DUE TO BRAIN ISSUES POSSIBLY RELATED TO THE STROKE . CHILLS NO . FEVER NO . INFECTION: DO YOU HAVE NEW INFECTIONS? NO . DO YOU HAVE HISTORY OF MRSA? NO . MUSCULOSKELETAL: ANY NEW PATTERNS OF PAIN OR NUMBNESS? NO . GASTROENTEROLOGY: ANY NEW CHANGE IN BOWEL CONTROL? NO . GENITOURINARY: ANY NEW CHANGE IN BLADDER CONTROL? NO . IS THERE A CHANCE YOU COULD BE ? NO . HEMATOLOGY/LYMPH: DO YOU TAKE ANY BLOOD THINNERS? (FOR EXAMPLE- COUMADIN, PLAVIX, AGGRENOX, PLATEL, PRADAXA, OR XARELTO) YES, COUMADIN AND PLAVIX . WHEN WAS YOUR LAST DOSE? DATE: TIME: . NEUROLOGY: HAVE YOU FALLEN IN THE PAST 12 MONTHS? YES, STATES MULTIPLE FALLS SINCE LAST VISIT FROM LOSING HIS BALANCE. STATES NO MAJOR INJURIES AND NO ED VISITS AFTER THE FALLS. PATIENT IS SUPPOSED TO BE AMBULATING WITH A CANE ALL THE TIME NOW . ANY NEW EXTREMITY NUMBNESS OR WEAKNESS? NO . CARDIOLOGY: DO YOU HAVE A PACEMAKER OR DEFIBRILLATOR? NO . RESPIRATORY: HAVE YOU BEEN SICK IN THE PAST WEEK? NO . FEVER NO . FLU LIKE SYMPTOMS? NO . COUGH NO . INTEGUMENTARY: DO YOU HAVE ANY RASHES OR OPEN SORES? NO . ALLERGIC/IMMUNO: ARE YOU ALLERGIC TO IV DYE? NO . ANY NEW ALLERGIES? NO . PSYCHIATRIC: DO YOU HAVE THOUGHTS OF HURTING YOURSELF OR SOMEONE ELSE? NO . ARE YOU ABUSED, NEGLECTED, OR IN AN UNSAFE ENVIRONMENT? NO . ENDOCRINOLOGY: ARE YOU DIABETIC? YES . OTHER: DO YOU NEED ANY PRESCRIPTIONS? NO . IF YES, PLEASE LIST: ____ . ANY NEW PROBLEMS WITH YOUR MEDICATIONS? NO . WHEN DID YOU LAST EAT? ____ . WHEN DID YOU LAST DRINK? ____ . WHAT DID YOU LAST DRINK? ____ . NAME OF PERSON DRIVING YOU HOME? ____ . DO YOU HAVE ANY OTHER QUESTIONS OR CONCERNS NO . ASSESSMENTS LOW BACK PAIN - M54.5 (PRIMARY) TREATMENT LOW BACK PAIN CONTINUE BUTRANS PATCH WEEKLY, 20 MCG/HR, 1 PATCH TO SKIN, TRANSDERMAL, APPLY 1 PATCH Q 7 DAYS MDD=1 NOTES: ISTOP REGISTRY REVIEWED AND DEMONSTRATES COMPLLIANCE. RECENT URINE TOXICOLOGY REVIEWED. NO UNAUTHORIZED MEDICATIONS. NO ILLICIT SUBSTANCES AND PRESCRIBED MEDICATIONS WERE PRESENT. TOTAL TIME SPENT DURING TELEMED VISIT WAS APPROXIMATELY 12 MINUTES. OTHERS NOTES: NO VITALS OBTAINED DUE TO PHONE VISIT. PRE-SCREENING COMPLETED WITH /HCP (CHRISTEN) 02/26/2020 1645 JS. DISPOSITION & COMMUNICATION FOLLOW UP 2 MONTHS (REASON: MED MGMNT) ELECTRONICALLY SIGNED BY JORGE HERRERA ON 02/28/2020 AT 02:43 PM EDT DISCLAIMER : THIS IS A VISIT SUMMARY EXTRACTED FROM THE doo CHART. IT IS NOT A COPY OF THE Pay[employer]UAL NACERT PROGRESS NOTE. JOVANNA
== END ==
LOC: M PAIN 13:15
PROVIDERS: ATTEND Nurse Practitioner Family
DX: M54.5 Low back pain (principal); E11.40 Type 2 diabetes mellitus with diabetic neuropathy, unspecified; I10 Essential (primary) hypertension; J44.9 Chronic obstructive pulmonary disease, unspecified; Z86.59 Personal history of other mental and behavioral disorders; K21.9 Gastro-esophageal reflux disease without esophagitis; G25.81 Restless legs syndrome; G47.33 Obstructive sleep apnea (adult) (pediatric); Z88.0 Allergy status to penicillin; Z88.1 Allergy status to other antibiotic agents; Z88.5 Allergy status to narcotic agent; Z88.6 Allergy status to analgesic agent; Z88.8 Allergy status to other drugs, medicaments and biological substances; Z91.030 Bee allergy status; Z91.040 Latex allergy status; Z79.4 Long term (current) use of insulin; Z79.01 Long term (current) use of anticoagulants; Z79.899 Other long term (current) drug therapy

== ENCOUNTER → 2020-05-07 | Outpatient (CLI) | payer MEDICARE, MEDICAID ==
[~2020-05-07] MED LIST changes: -ALL10TAB29 PO; -AMLO10TA5 PO; +AMLO1TAB24 PO; +AMLO1TAB25 PO; -AMLO5TAB6 PO; +CALC1CAP PO; +CETI-24 PO; +CLON0.5T17 PO; -COUM7.5T PO; +COUM7.5T6 PO; +ECOT81TA5 PO; -MOVA1TAB PO; +NALO12.5 PO; +PANT40TA29 PO; -PANT40TA3 PO; +RENA1TAB PO; +VALS40TA9 PO; +[UNRECOGNIZED DRUG - OTHER] PO
--- NOTE | 2020-05-14 09:03 | ECWPNPC ---
PATIENT NAME: YOVANI VALLEJO : 1950 GENDER: MALE VISIT DATE: 05/07/2020 DISCHARGE DATE: 05/07/20 1352 VISIT LOCKED DATE TIME: PHYSICIAN: SAVANNA PARR RESOURCE: SAVANNA PARR REASON FOR APPOINTMENT 1. FOOT/LEGS HISTORY OF PRESENT ILLNESS GENERAL: -. FALL RISK SCREENING: SCREENING :ONE FALL WITH INJURY IN THE PAST YEAR IN NOVEMBER IDENTIFIED A STROKE PAIN SCREENING: PATIENT HAS A COMPLAINT OF ACUTE OR CHRONIC PAIN :YES LOCATION OF PAIN: BOTH LEGS INTENSITY OF PAIN (SCALE OF 1 TO 10):2 LEGS PAIN COME AND GO WHAT DOES YOUR PAIN FEEL LIKE:STABBING COMES AND GOES PAIN IS INCREASED BY:ACTIVITIES PAIN IS DECREASED BY:SITTING NURSING NOTE: -. PAIN CENTER INTAKE QUESTIONS: DO YOU HAVE A HISTORY OF MRSA? :NO DO YOU TAKE A BLOOD THINNERS? :NO DO YOU HAVE ANY BLEEDING DISORDERS? :NO ANY NEW NUMBNESS OR WEAKNESS IN YOUR LEGS OR ARMS? :NO ANY PACEMAKER,DEFIBRILLATOR, OR DORSAL COLUMN STIMULATOR? :NO DO YOU HAVE ANY RASHES OR OPEN SORES? :NO ARE YOU ALLERGIC TO IV DYE? :NO ARE YOU DIABETIC? :NO ANY NEW PROBLEMS WITH YOUR MEDICATIONS? :NO HAVE YOU RECEIVED A VACCINE IN THE PAST 30 DAYS? :NO DO YOU PLAN TO RECEIVE A VACCINE IN THE NEXT 21 DAYS? :NO DO YOU NEED ANY PRESCRIPTION? :NO DO YOU TAKE ANY IMMUNOSUPPRESSIVE MEDICATIONS? :NO IS THERE A CHANCE YOU COULD BE ? :NO ARE YOU BREAST FEEDING? :NO HISTORY OF PRESENT ILLNESS: HERE FOR MEDICATION MANAGEMENT VISIT OF CHRONIC LOW BACK PAIN. RATING LOW BACK PAIN A 6/10 VAS. CONTINUES TO ATTEND DIALYSIS. FINDS BUTRANS-PATCH 20 MCG SOMEWHAT HELPFUL AT REDUCING HIS PAIN AND KEEPING HIM FUNCTIONAL. ALSO USING HYDROCODONE PERIODICALLY FOR SEVERE PAIN EPISODES WHICH IS PRESCRIBED BY PRIMARY CARE. DENIES ADVERSE SIDE EFFECTS. PAIN THE PATIENT DESCRIBES THE PAIN... CURRENT MEDICATIONS TAKING CALCITRIOL 0.25 MCG CAPSULE 1 CAPSULE ORAL 3 X WEEK-- WITH DIALYSIS TAKING PROCRIT 00854 UNIT/ML SOLUTION INJECTION MONTHLY TAKING PROVENTIL HFA 108 (90 BASE) MCG/ACT AEROSOL SOLUTION 2 PUFFS INHALATION EVERY 4 HOURS NEEDED TAKING FISH OIL 1000 MG CAPSULE 1 CAP(S) ORALLY THREE TIMES A DAY TAKING PEN NEEDLES 31G X 5 MM ULTRA FINE 1 EACH INTRADERMALLY DIAG CODE 250.6 FOUR TIMES A DAY TAKING BLOOD PRESSURE MONITOR - KIT DIRECTED TAKING FULL KIT NEBULIZER SET - MISCELLANEOUS DIRECTED DX J44.9 (COPD) DAILY TAKING MIRALAX - PACKET 1 PACKET MIXED WITH 8 OUNCES OF FLUID ORALLY TWICE DAILY TAKING VITAMIN D (ERGOCALCIFEROL) 47829 UNIT CAPSULE 1 CAPSULE ORALLY ONCE A WEEK-WEDNESDAY TAKING BISOPROLOL FUMARATE 5 MG TABLET 1 TABLET ORALLY TWICE DAILY TAKING ISOSORBIDE MONONITRATE ER 30 MG TABLET EXTENDED RELEASE 24 HOUR 1 TABLET ORAL ONCE A DAY TAKING FLONASE ALLERGY RELIEF 50 MCG/ACT SUSPENSION 2 SPRAYS IN EACH NOSTRIL NASALLY DAILY TAKING ADVAIR HFA 230-21 MCG/ACT AEROSOL 2 PUFFS INHALATION TWICE A DAY TAKING NOVOLOG 100 UNIT/ML SOLUTION DIRECTED SUBCUTANEOUS 7 UNITS BREAKFAST AND DINNER, 5 UNITS LUNCH, NOTES: HOSP D/C 12/19/19= NOVOLOG TAKING GLUCAGON EMERGENCY 1 MG KIT DIRECTED INJECTION DAILY NEEDED TAKING LANTUS 100 UNIT/ML SOLUTION TWICE A DAY SUBCUTANEOUS 8 UNITS IN AM AND 5 UNITS AT BEDTIME TAKING PLAVIX 75 MG TABLET 1 TABLET ORALLY ONCE A DAY TAKING NITROGLYCERIN 0.4 MG TABLET SUBLINGUAL DIRECTED SUBLINGUAL Q 5MIN X3 FOR CHEST PAIN TAKING GABAPENTIN 100 MG CAPSULE 1 CAPSULE ORALLY ONCE A DAY TAKING ACETAMINOPHEN 500 MG TABLET 2 TABLETS NEEDED ORALLY EVERY 6 HOURS FOR PAIN MDD 3000MG TAKING BUMETANIDE 2 MG TABLET 1 TAB ORALLY DAILY TAKING LIDOCAINE-PRILOCAINE 2.5-2.5 % CREAM DIRECTED EXTERNALLY TO PORT 3 TIMES WEEKLY PRIOR TO DIALYSIS TAKING RENVELA 0.8 GM PACKET 1 PACKET MIXED WITH 30 ML OF WATER WITH MEALS ORALLY THREE TIMES A DAY TAKING TAMSULOSIN HCL 0.4 MG CAPSULE EXTENDED RELEASE 24 HOUR 1 CAPSULE 30 MINUTES AFTER THE SAME MEAL EACH DAY ORALLY ONCE A DAY TAKING MECLIZINE HCL 12.5 MG TABLET 2 TABLETS NEEDED ORALLY ONCE A DAY NEEDED FOR VERTIGO, NOTES: PRN TAKING PANTOPRAZOLE SODIUM 40 MG TABLET DELAYED RELEASE 1 TABLET ORALLY ONCE A DAY TAKING LIPITOR 40 MG TABLET 1 TABLET ORALLY ONCE A DAY TAKING ALBUTEROL SULFATE (2.5 MG/3ML) 0.083% NEBULIZATION SOLUTION 3 ML INHALATION EVERY 4 HRS NEEDED FOR SOB/WHEEZING TAKING PROLIA 60 MG/ML SOLUTION PREFILLED SYRINGE DIRECTED SUBCUTANEOUS EVERY 6 MONTHS TAKING BUTRANS 20 MCG/HR PATCH WEEKLY 1 PATCH TO SKIN TRANSDERMAL APPLY 1 PATCH Q 7 DAYS MDD=1 TAKING AZELASTINE HCL 137 MCG/SPRAY SOLUTION 1 SPRAY IN EACH NOSTRIL NASALLY DAILY TAKING COUMADIN 5 MG TABLET DIRECTED ORALLY 10 MG M, F 7.5 MG T, W,TH, SA, CLINE TAKING PRAMIPEXOLE DIHYDROCHLORIDE 0.25 MG TABLET 1 TABLET ORALLY BID TAKING CALCIUM ACETATE 667 MG CAPSULE 1 TAB ORALLY THREE TIMES A DAY TAKING BETAMETHASONE DIPROPIONATE AUG 0.05 % CREAM 1 APPLICATION EXTERNALLY TO ARMS, LEGS, AND TRUNK (LARGE AREA) BID TAKING NORCO 5-325 MG TABLET 1 TABLET NEEDED ORALLY MDD4 FOUR TIMES DAILY NEEDED TAKING ZOFRAN ODT 4 MG TABLET DISINTEGRATING 1 TABLET ON THE TONGUE AND ALLOW TO DISSOLVE ORALLY 3 TIMES A DAY NEEDED FOR NAUSEA, NOTES: PRN NOT-TAKING HYDROXYZINE HCL 50 MG TABLET 1 TABLET NEEDED ORALLY FOUR TIMES DAILY NEEDED FOR ITCHING, NOTES: THREE TIMES A DAY MEDICATION LIST REVIEWED AND RECONCILED WITH THE PATIENT PAST MEDICAL HISTORY DVT CHRONIC PHLEBITIS CHRONIC VENOUS INSUFFICIENCY PERIPHERAL NEUROPATHY TYPE 2 DIABETES--DR Amisha PRADO HYPERLIPIDEMIA HTN COPD HX OF DEPRESSION DDD/DJD GERD DERMATITIS HERPETIFORMIS-- + BX 05/03 DR MCDONALD ADENOMATOUS COLON POLYP 2009 RESTLESS LEG SYNDROME CELIAC DISEASE RIGTH SHOULDER NERVE IMPINGEMENT/RIGHT CARPEL TUNNEL - DR. PRADO GORDON ON CPAP SUBCLINICAL HYPOTHYROIDISM 06/07 DIVERTICULOSIS 04/2019 KIDNEY DISEASE STAGE 4 REGURING DIALYSIS 3 TIMES WEEKLY L2 VERTERAE FX DERMATITIS HERPETIFORMIS L3 FRACTURE FLU/PNEUMONIA STROKE ALLERGIES ACTOS: EDEMA - SIDE EFFECTS DEMEROL: HIVES - ALLERGY DILANTIN: ANAPHYLAXIS - ALLERGY GLUCOPHAGE: RASH - ALLERGY LEVAQUIN: HEAD ACHE - SIDE EFFECTS PHENOBARBITAL: ANAPHYLAXIS - ALLERGY TEGRETOL: ANAPHYLAXIS - ALLERGY PENICILLIN (FOR ALLERGIES USE ONLY): HIVES - ALLERGY TRIPLE ANTIBIOTIC: FACIAL SWELLING - ALLERGY REQUIP: ELEVATED LIVER ENZYMES LATEX (FOR ALLERGY USE ONLY): RASH - ALLERGY CRESTOR: HEADACHE LYRICA: DIDN'T WORK - SIDE EFFECTS CAPSACIN (TOPICALLY): EXCESSIVE BURNING - SIDE EFFECTS LISINOPRIL: RASH - SIDE EFFECTS GABAPENTIN: DIDN'T WORK - LACK OF THERAPEUTIC EFFECT DAPSONE: ANEMIA - SIDE EFFECTS NSAIDS: CONTRAINDICATION BEES: ANAPHYLAXIS - ALLERGY SURGICAL HISTORY CERVICAL SPINE FUSION 06/2003 L ARM BREAK REPAIR 11/1981 R LEG BREAK REPAIR 02/1982 COLONSOCOPY (ADENOMATOUS POLYP 2009) 2003,2009 EGD 2009 ENDOSCOPY AND COLONOSCOPY 2015DEC 13 FISTUAL PLACED IN RIGHT ARM 2018OCT 26 STENTS PLACED IN LAD 05/2019 FAMILY HISTORY FATHER: MOTHER: FATHER WITH SKIN CANCER, DENIES FH OF MELANOMA. SOCIAL HISTORY GENERAL: TOBACCO USE ARE YOU A: NONSMOKER. LATEX QUESTIONNAIRE LATEX ALLERGY : HAVE YOU EVER DEVELOPED ANY TYPE OF REACTION AFTER HANDLING LATEX PRODUCTS SUCH RUBBER GLOVES, CONDOMS, DIAPHRAGMS, BALLOONS, SOCKS, OR UNDERWEAR?YES LATEX ALLERGY : HAVE YOU EVER DEVELOPED ANY TYPE OF REACTION DURING OR AFTER DENTAL APPOINTMENT, VAGINAL/RECTAL EXAMINATION, SURGICAL PROCEDURE, OR ANY OTHER EXPOSURE?NO - PLEASE INDICATE :RUBBER GLOVES DATE ASKED : 02/06/2020 LATEX RISK : HAVE YOU EVER HAD ANY DIFFICULTY BREATHING OR HIVES AFTER EATING OR HANDLING ANY FRUITS, OR VEGETABLES; SUCH KIWI, BANANAS, STONE FRUITS, OR CHESTNUTSNO LATEX RISK : DO YOU HAVE A PREVIOUS PERSONAL HISTORY OF MORE THAN NINE SURGERIES, SPINA BIFIDA, OR REPEATED CATHERIZATIONS? NO LATEX RISK : ARE YOU FREQUENTLY EXPOSED TO LATEX PRODUCTS IN YOUR OCCUPATION?NO BMI CARE GOAL FOLLOW-UP ABOVE NORMAL BMI FOLLOW-UPDIETARY MANAGEMENT EDUCATION, GUIDANCE, AND COUNSELING ALCOHOL SCREENING DID YOU HAVE A DRINK CONTAINING ALCOHOL IN THE PAST YEAR?NO POINTS0 INTERPRETATIONNEGATIVE RECREATIONAL DRUG USE DRUG USE?NO CAFFEINE CAFFEINE USE?YES HOW OFTEN AND HOW MUCH? 2 CUPS COFFEE/DAY SEXUAL HX HAD SEX IN THE LAST 12 MONTHS (VAGINAL, ORAL, OR ANAL)?NO HAVE YOU EVER HAD AN STD?NO HIV / HEP-C SCREENING HIV TEST OFFERED TO PATIENT:YES DATE OFFERED:02/08/2017 TEST ACCEPTED:NO HEP-C TEST OFFERED TO PATIENT:YES DATE OFFERED:02/08/2017 REASON:PATIENT DECLINED TEST ACCEPTED:NO REASON:PATIENT DECLINED [employer] [id number] [employer]UD[employer] LANGUAGE LANGUAGES SPOKEN:TURKISH EDUCATION LEVEL OF EDUCATION:NOT FINISHED HIGH SCHOOL LEARNING BARRIERS / SPECIAL NEEDS CHANGE FROM LAST VISIT?YES 02/26/2020 BARRIERS TO LEARNING?NO HEARING IMPAIRED?YES VISION IMPAIRED?YES COGNITIVELY IMPAIRED?NO :HEARING AIDES :CORRECTIVE LENSES READINESS TO LEARN?YES LEARNING PREFERENCES?YES :DEMONSTRATION/VERBAL INSTRUCTION LEARNING CAPABILITIES PRESENT?YES EMOTIONAL BARRIERS?NO SPECIAL DEVICES?YES :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 DIET: NO ADDED SALT, LOW FAT, LOW CHOLESTEROL. EXERCISE: NONE. MARITAL STATUS: . OTHERS AT HOME: SPOUSE. NEW PATIENT PAIN DIARY TODAY'S VISITNOTES 02/26/2020 PATIENT DESCRIBES PAIN :ACHING, IT COMES AND GOES, OTHER CRAMPING - LEGS FROM 0-10, WHAT LEVEL IS YOUR PAIN TODAY?4 PAIN CLINIC PFS, CLERGY, PUBLIC HEALTH REFERRALS PFS REFERRAL NEEDED?NO CLERGY REFERRAL NEEDED?NO PUBLIC HEALTH REFERRAL NEEDED?NO WAS THE PROVIDER NOTIFIED OF ANY PERTINENT INFO? N/A HAS THE PATIENT BEEN EDUCATED REGARDING HIS/HER PLAN OF CARE?YES HAS THE PATIENT BEEN EDUCATED REGARDING PAIN, THE RISK FOR PAIN, THE IMPORTANCE OF EFFECTIVE PAIN MANAGEMENT, AND THE PAIN ASSESSMENT PROCESS?YES HOUSING: OWNS HOME. 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 CHILLS NO . WEIGHT CHANGE OF UNKNOWN REASONS NO . GASTROENTEROLOGY: NEW UNEXPLAINABLE CHANGES IN BOWEL CONTROL NO . CONSTIPATION NO . GENITOURINARY: ANY NEW CHANGE IN BLADDER CONTROL? NO . NEUROLOGY: NEW ONSET DIZZINESS OR NEUROLOGICAL CHANGES NOT MENTIONED NO . NEW NUMBNESS OR PAIN PATTERNS NOT MENTIONED AND PERTINENT TO TODAY'S VISIT NO . CARDIOLOGY: NEW CHEST PRESSURE NO . NEW CHEST PAIN NO . RESPIRATORY: UNEXPLAINABLE COUGH NO . NEW SHORTNESS OF BREATH NO . VITAL SIGNS WT 180 LBS, HT 69 IN, BMI 26.58 INDEX, HR 57 /MIN, RR 18 /MIN, TEMP 97 F, OXYGEN SAT % 100. EXAMINATION GENERAL EXAMINATION: GENERALAWAKE,ALERT ,PLEASANT . PSYCHAFFECT NORMAL . LUNGS:LUNG TITUS ARE CLEAR TO AUSCULTATION BILATERALLY. GOOD MOVEMENT OF AIR . HEART:S1, S2 IN A REGULAR RATE AND RHYTHM. NO SIGNIFICANT MURMURS, RUBS OR GALLOPS NOTED . ASSESSMENTS LOW BACK PAIN - M54.5 (PRIMARY) DIABETIC PERIPHERAL NEUROPATHY - E11.42 CHRONIC PRESCRIPTION OPIATE USE - Z79.891 TREATMENT LOW BACK PAIN CONTINUE BUTRANS PATCH WEEKLY, 20 MCG/HR, 1 PATCH TO SKIN, TRANSDERMAL, APPLY 1 PATCH Q 7 DAYS MDD=1 NOTES: ISTOP REGISTRY REVIEWED AND DEMONSTRATES COMPLLIANCE. RECENT URINE TOXICOLOGY REVIEWED. NO UNAUTHORIZED MEDICATIONS. NO ILLICIT SUBSTANCES AND PRESCRIBED MEDICATIONS WERE PRESENT. URINE TOXICOLOGY TODAY , RISKS OF NARCOTIC/OPIOD MEDICATIONS INCLUDES BUT IS NOT LIMITED TO RISK OF DEPENDANCE/DEVELOPMENT OF ADDICTION, MOOD DISTURBANCE AND DEPRESSION, OSTEOPOROSIS, HORMONAL AND LABIDAL CHANGES, RESPIRATORY DEPRESSION AND . PATIENT IS ADVISED NOT TO DRIVE OR DRINK ALCOHOL WHILE ON THESE MEDICATIONS. PROCEDURE CODES FA211 ESTABILISHED PATIENT [facility] CHARGE DISPOSITION & COMMUNICATION FOLLOW UP 3 MONTHS (REASON: MED MANAGEMENT/LOW BACK PAIN) ELECTRONICALLY SIGNED BY JORGE HERRERA ON 05/13/2020 AT 08:41 AM EDT DISCLAIMER : THIS IS A VISIT SUMMARY EXTRACTED FROM THE [employer] CHART. IT IS NOT A COPY OF THE [employer] PROGRESS NOTE. JOVANNA
== END ==
LOC: M PAIN 13:00
PROVIDERS: ATTEND Nurse Practitioner Family
DX: M54.5 Low back pain (principal); E11.42 Type 2 diabetes mellitus with diabetic polyneuropathy; Z79.891 Long term (current) use of opiate analgesic

== ENCOUNTER 2020-06-14 16:42 | Outpatient (CLI) | payer MEDICARE, MEDICAID ==
[~2020-06-14 16:42] MED LIST changes: -CALC1CAP PO; -CLON0.5T17 PO; -ECOT81TA5 PO; -RENA1TAB PO; -VALS40TA9 PO; -[UNRECOGNIZED DRUG - OTHER] PO; +diphenhydrAMINE 25MG CAP PO SCH
[2020-06-14 20:26] VITALS: BP 140/51
[2020-06-14 20:44] VITALS: BP 139/52
[2020-06-14 21:45] VITALS: BP 135/50
[2020-06-14 22:42] VITALS: BP 135/52
[2020-08-29] MEDS ORDERED: CLON0.5T17 PO (11:03)
[2020-08-29] MEDS ORDERED: [UNRECOGNIZED DRUG - OTHER] PO (11:03)
[2020-08-29] MEDS ORDERED: CALC1CAP PO (11:03)
[2020-08-29] MEDS ORDERED: RENA1TAB PO (11:03)
[2020-08-29] MEDS ORDERED: ECOT81TA5 PO (11:03)
[2020-08-29] MEDS ORDERED: VALS40TA9 PO (11:03)
== END 2020-06-15 00:10 | disposition home or self-care (01) ==
LOC: M OPCLI5PR 16:42 → M MS5PR 16:45 → M OPCLI5PR 06-15 00:10
PROVIDERS: ATTEND Internal Medicine Nephrology
DX: D50.0 Iron deficiency anemia secondary to blood loss (chronic) (principal)
CPT/HCPCS: 36430; 86850; 86900; 86901; 86920; P9016

== ENCOUNTER → 2020-08-13 | Outpatient (CLI) | payer MEDICARE, MEDICAID ==
[~2020-08-13] MED LIST changes: -diphenhydrAMINE 25MG CAP PO SCH
--- NOTE | 2020-08-14 14:38 | ECWPNPC ---
PATIENT NAME: YOVANI VALLEJO : 1950 GENDER: MALE VISIT DATE: 08/13/2020 DISCHARGE DATE: 08/13/20 1202 VISIT LOCKED DATE TIME: PHYSICIAN: SAVANNA PARR PHYSICIAN PAGER NO: ACTIVE RESOURCE: SAVANNA PARR REASON FOR APPOINTMENT 1. FOOT/LEG HISTORY OF PRESENT ILLNESS GENERAL: HERE FOR 3 MONTH MEDICATION MANAGEMENT VISIT FOR PERSISTENT LOW BACK PAIN WITH HISTORY OF PERIPHERAL VASCULAR DISEASE. FINDS CURRENT CHRONIC PAIN MEDICATION HELPFUL AT REDUCING PAIN AND KEEPING HIM FUNCTIONAL. CURRENTLY USING BUTRANS-PATCH 20 MEQ EVERY 7 DAYS AND GABAPENTIN 100 MG AT AT BEDTIME. FOLLOWING CLOSELY WITH [facility] FOR HISTORY OF STROKE 6 MONTHS AGO AND UNSTEADY GAIT/CHRONIC FATIGUE SINCE STROKE. -. FALL RISK SCREENING: SCREENING :ONE FALL WITH INJURY IN THE PAST YEAR PAIN SCREENING: PATIENT HAS A COMPLAINT OF ACUTE OR CHRONIC PAIN :YES LOCATION OF PAIN:LEG(S) INTENSITY OF PAIN (SCALE OF 1 TO 10):6 WHAT DOES YOUR PAIN FEEL LIKE:OTHER PT CAN'T DESCRIBE PAIN DURATION:CONTINOUS, CONSTANT PAIN IS INCREASED BY:ACTIVITIES PAIN IS DECREASED BY:SITTING TREATMENT/MEDICATIONS USED TO MANAGE PAIN:OPIOIDS LEVEL OF RELIEF FROM PAIN TREATMENTS IN THE PAST:75% PAIN HAS INTERFERED WITH THE FOLLOWING:BATHING/DRESSING, WALKING ABILITY, HOUSEWORK, SLEEP, TRANSPORTATION, TOILETING NURSING NOTE: -. PAIN CENTER INTAKE QUESTIONS: DO YOU HAVE A HISTORY OF MRSA? :NO DO YOU TAKE A BLOOD THINNERS? :YES COUMADIN FOR DVT'S, HEPARIN FOR DIALYSIS AND PLAVIX FOR STENTS DO YOU HAVE ANY BLEEDING DISORDERS? :NO ANY NEW NUMBNESS OR WEAKNESS IN YOUR LEGS OR ARMS? :YES POSTERIOR LEGS GETTING NUMB ANY PACEMAKER,DEFIBRILLATOR, OR DORSAL COLUMN STIMULATOR? :NO DO YOU HAVE ANY RASHES OR OPEN SORES? :YES ARMS ARE YOU ALLERGIC TO IV DYE? :NO ARE YOU DIABETIC? :YES INSULIN ANY NEW PROBLEMS WITH YOUR MEDICATIONS? :NO HAVE YOU RECEIVED A VACCINE IN THE PAST 30 DAYS? :YES FLU VACCINE 3 WEEKS AGO DO YOU PLAN TO RECEIVE A VACCINE IN THE NEXT 21 DAYS? :NO DO YOU NEED ANY PRESCRIPTION? :YES BUTRANS PATCH DO YOU TAKE ANY IMMUNOSUPPRESSIVE MEDICATIONS? :NO IS THERE A CHANCE YOU COULD BE ? :NO ARE YOU BREAST FEEDING? :NO CURRENT MEDICATIONS TAKING CALCITRIOL 0.25 MCG CAPSULE 1 CAPSULE ORAL 3 X WEEK-M-- WITH DIALYSIS TAKING PROCRIT 91354 UNIT/ML SOLUTION INJECTION MONTHLY TAKING PROVENTIL HFA 108 (90 BASE) MCG/ACT AEROSOL SOLUTION 2 PUFFS INHALATION EVERY 4 HOURS NEEDED TAKING FISH OIL 1000 MG CAPSULE 1 CAP(S) ORALLY THREE TIMES A DAY TAKING PEN NEEDLES 31G X 5 MM ULTRA FINE 1 EACH INTRADERMALLY DIAG CODE 250.6 FOUR TIMES A DAY TAKING BLOOD PRESSURE MONITOR - KIT DIRECTED TAKING FULL KIT NEBULIZER SET - MISCELLANEOUS DIRECTED DX J44.9 (COPD) DAILY TAKING MIRALAX - PACKET 1 PACKET MIXED WITH 8 OUNCES OF FLUID ORALLY TWICE DAILY TAKING VITAMIN D (ERGOCALCIFEROL) 46339 UNIT CAPSULE 1 CAPSULE ORALLY ONCE A WEEK-WEDNESDAY TAKING BISOPROLOL FUMARATE 5 MG TABLET 1 TABLET ORALLY TWICE DAILY TAKING ISOSORBIDE MONONITRATE ER 30 MG TABLET EXTENDED RELEASE 24 HOUR 1 TABLET ORAL ONCE A DAY TAKING FLONASE ALLERGY RELIEF 50 MCG/ACT SUSPENSION 2 SPRAYS IN EACH NOSTRIL NASALLY DAILY TAKING NOVOLOG 100 UNIT/ML SOLUTION DIRECTED SUBCUTANEOUS 7 UNITS BREAKFAST AND DINNER, 5 UNITS LUNCH, NOTES: HOSP D/C 12/19/19= NOVOLOG TAKING GLUCAGON EMERGENCY 1 MG KIT DIRECTED INJECTION DAILY NEEDED TAKING LANTUS 100 UNIT/ML SOLUTION TWICE A DAY SUBCUTANEOUS 8 UNITS IN AM AND 5 UNITS AT BEDTIME TAKING PLAVIX 75 MG TABLET 1 TABLET ORALLY ONCE A DAY TAKING NITROGLYCERIN 0.4 MG TABLET SUBLINGUAL DIRECTED SUBLINGUAL Q 5MIN X3 FOR CHEST PAIN TAKING GABAPENTIN 100 MG CAPSULE 1 CAPSULE ORALLY ONCE A DAY TAKING ACETAMINOPHEN 500 MG TABLET 2 TABLETS NEEDED ORALLY EVERY 6 HOURS FOR PAIN MDD 3000MG TAKING BUMETANIDE 2 MG TABLET 1 TAB ORALLY DAILY TAKING LIDOCAINE-PRILOCAINE 2.5-2.5 % CREAM DIRECTED EXTERNALLY TO PORT 3 TIMES WEEKLY PRIOR TO DIALYSIS TAKING TAMSULOSIN HCL 0.4 MG CAPSULE EXTENDED RELEASE 24 HOUR 1 CAPSULE 30 MINUTES AFTER THE SAME MEAL EACH DAY ORALLY ONCE A DAY TAKING MECLIZINE HCL 12.5 MG TABLET 2 TABLETS NEEDED ORALLY ONCE A DAY NEEDED FOR VERTIGO, NOTES: PRN TAKING PANTOPRAZOLE SODIUM 40 MG TABLET DELAYED RELEASE 1 TABLET ORALLY ONCE A DAY TAKING ALBUTEROL SULFATE (2.5 MG/3ML) 0.083% NEBULIZATION SOLUTION 3 ML INHALATION EVERY 4 HRS NEEDED FOR SOB/WHEEZING TAKING PROLIA 60 MG/ML SOLUTION PREFILLED SYRINGE DIRECTED SUBCUTANEOUS EVERY 6 MONTHS TAKING AZELASTINE HCL 137 MCG/SPRAY SOLUTION 1 SPRAY IN EACH NOSTRIL NASALLY DAILY TAKING COUMADIN 5 MG TABLET 8MG ORALLY DAILY TAKING PRAMIPEXOLE DIHYDROCHLORIDE 0.25 MG TABLET 1 TABLET ORALLY BID TAKING CALCIUM ACETATE 667 MG CAPSULE 1 TAB ORALLY THREE TIMES A DAY TAKING BETAMETHASONE DIPROPIONATE AUG 0.05 % CREAM 1 APPLICATION EXTERNALLY TO ARMS, LEGS, AND TRUNK (LARGE AREA) BID TAKING NORCO 5-325 MG TABLET 1 TABLET NEEDED ORALLY MDD4 FOUR TIMES DAILY NEEDED TAKING BUTRANS 20 MCG/HR PATCH WEEKLY 1 PATCH TO SKIN TRANSDERMAL APPLY 1 PATCH Q 7 DAYS MDD=1 TAKING ADVAIR HFA 230-21 MCG/ACT AEROSOL 2 PUFFS INHALATION TWICE A DAY TAKING ZOFRAN ODT 4 MG TABLET DISINTEGRATING 1 TABLET ON THE TONGUE AND ALLOW TO DISSOLVE ORALLY 3 TIMES A DAY NEEDED FOR NAUSEA, NOTES: PRN TAKING LIPITOR 40 MG TABLET 1 TABLET ORALLY ONCE A DAY NOT-TAKING RENVELA 0.8 GM PACKET 1 PACKET MIXED WITH 30 ML OF WATER WITH MEALS ORALLY THREE TIMES A DAY NOT-TAKING WARFARIN SODIUM 5 MG TABLET TAKE 2 TABLETS BY MOUTH WEDNESDAY AND WEDNESDAY. 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 PRADO GORDON ON CPAP SUBCLINICAL HYPOTHYROIDISM 06/07 DIVERTICULOSIS 04/2019 KIDNEY DISEASE STAGE 4 REGURING DIALYSIS 3 TIMES WEEKLY L2 VERTERAE FX DERMATITIS HERPETIFORMIS L3 FRACTURE FLU/PNEUMONIA STROKE ALLERGIES ACTOS: EDEMA - SIDE EFFECTS DEMEROL: HIVES - ALLERGY DILANTIN: ANAPHYLAXIS - ALLERGY GLUCOPHAGE: RASH - ALLERGY LEVAQUIN: HEAD ACHE - SIDE EFFECTS PHENOBARBITAL: ANAPHYLAXIS - ALLERGY TEGRETOL: ANAPHYLAXIS - ALLERGY PENICILLIN (FOR ALLERGIES USE ONLY): HIVES - ALLERGY TRIPLE ANTIBIOTIC: FACIAL SWELLING - ALLERGY REQUIP: ELEVATED LIVER ENZYMES LATEX (FOR ALLERGY USE ONLY): RASH - ALLERGY CRESTOR: HEADACHE LYRICA: DIDN'T WORK - SIDE EFFECTS CAPSACIN (TOPICALLY): EXCESSIVE BURNING - SIDE EFFECTS LISINOPRIL: RASH - SIDE EFFECTS GABAPENTIN: DIDN'T WORK - LACK OF THERAPEUTIC EFFECT DAPSONE: ANEMIA - SIDE EFFECTS NSAIDS: CONTRAINDICATION BEES: ANAPHYLAXIS - ALLERGY SURGICAL HISTORY CERVICAL SPINE FUSION 06/2003 L ARM BREAK REPAIR 11/1981 R LEG BREAK REPAIR 02/1982 COLONSOCOPY (ADENOMATOUS POLYP 2009) 2003,2009 EGD 2009 ENDOSCOPY AND COLONOSCOPY 2015DEC 13 FISTUAL PLACED IN RIGHT ARM 2018OCT 26 STENTS PLACED IN LAD 05/2019 FAMILY HISTORY FATHER: MOTHER: FATHER WITH SKIN CANCER, DENIES FH OF MELANOMA. SOCIAL HISTORY GENERAL: TOBACCO USE ARE YOU A: NONSMOKER. LATEX QUESTIONNAIRE LATEX ALLERGY : HAVE YOU EVER DEVELOPED ANY TYPE OF REACTION AFTER HANDLING LATEX PRODUCTS SUCH RUBBER GLOVES, CONDOMS, DIAPHRAGMS, BALLOONS, SOCKS, OR UNDERWEAR?YES - PLEASE INDICATE :RUBBER GLOVES LATEX ALLERGY : HAVE YOU EVER DEVELOPED ANY TYPE OF REACTION DURING OR AFTER DENTAL APPOINTMENT, VAGINAL/RECTAL EXAMINATION, SURGICAL PROCEDURE, OR ANY OTHER EXPOSURE?NO LATEX RISK : HAVE YOU EVER HAD ANY DIFFICULTY BREATHING OR HIVES AFTER EATING OR HANDLING ANY FRUITS, OR VEGETABLES; SUCH KIWI, BANANAS, STONE FRUITS, OR CHESTNUTSNO LATEX RISK : DO YOU HAVE A PREVIOUS PERSONAL HISTORY OF MORE THAN NINE SURGERIES, SPINA BIFIDA, OR REPEATED CATHERIZATIONS? NO LATEX RISK : ARE YOU FREQUENTLY EXPOSED TO LATEX PRODUCTS IN YOUR OCCUPATION?NO DATE ASKED : 02/06/2020 BMI CARE GOAL FOLLOW-UP ABOVE NORMAL BMI FOLLOW-UPDIETARY MANAGEMENT EDUCATION, GUIDANCE, AND COUNSELING ALCOHOL SCREENING DID YOU HAVE A DRINK CONTAINING ALCOHOL IN THE PAST YEAR?NO POINTS0 INTERPRETATIONNEGATIVE RECREATIONAL DRUG USE DRUG USE?NO CAFFEINE CAFFEINE USE?YES HOW OFTEN AND HOW MUCH? 2 CUPS COFFEE/DAY SEXUAL HX HAD SEX IN THE LAST 12 MONTHS (VAGINAL, ORAL, OR ANAL)?NO HAVE YOU EVER HAD AN STD?NO HIV / HEP-C SCREENING HIV TEST OFFERED TO PATIENT:YES DATE OFFERED:02/08/2017 TEST ACCEPTED:NO HEP-C TEST OFFERED TO PATIENT:YES DATE OFFERED:02/08/2017 REASON:PATIENT DECLINED TEST ACCEPTED:NO REASON:PATIENT DECLINED CONGREGATIONAL [id number] YARSANISM LANGUAGE LANGUAGES SPOKEN:KAZAKH EDUCATION LEVEL OF EDUCATION:NOT FINISHED HIGH SCHOOL LEARNING BARRIERS / SPECIAL NEEDS CHANGE FROM LAST VISIT?YES 02/26/2020 BARRIERS TO LEARNING?NO HEARING IMPAIRED?YES VISION IMPAIRED?YES COGNITIVELY IMPAIRED?NO :HEARING AIDES :CORRECTIVE LENSES READINESS TO LEARN?YES LEARNING PREFERENCES?YES :DEMONSTRATION/VERBAL INSTRUCTION LEARNING CAPABILITIES PRESENT?YES EMOTIONAL BARRIERS?NO SPECIAL DEVICES?YES :CANE HEADEND TECHNICIAN NEEDED?NO DOMESTIC VIOLENCE DO YOU FEEL SAFE IN YOUR ENVIRONMENT?YES OCCUPATION: DISABLED. DIET: NO ADDED SALT, LOW FAT, LOW CHOLESTEROL. EXERCISE: NONE. MARITAL STATUS: . OTHERS AT HOME: SPOUSE. NEW PATIENT PAIN DIARY TODAY'S VISITNOTES 02/26/2020 PATIENT DESCRIBES PAIN :ACHING, IT COMES AND GOES, OTHER CRAMPING - LEGS FROM 0-10, WHAT LEVEL IS YOUR PAIN TODAY?4 PAIN CLINIC PFS, CLERGY, PUBLIC HEALTH REFERRALS PFS REFERRAL NEEDED?NO CLERGY REFERRAL NEEDED?NO PUBLIC HEALTH REFERRAL NEEDED?NO WAS THE PROVIDER NOTIFIED OF ANY PERTINENT INFO? N/A HAS THE PATIENT BEEN EDUCATED REGARDING HIS/HER PLAN OF CARE?YES HAS THE PATIENT BEEN EDUCATED REGARDING PAIN, THE RISK FOR PAIN, THE IMPORTANCE OF EFFECTIVE PAIN MANAGEMENT, AND THE PAIN ASSESSMENT PROCESS?YES HOUSING: OWNS HOME. ADVANCE DIRECTIVE ADVANCE DIRECTIVE DISCUSSED WITH PATIENT:YES HAS HCP [phone] DAUGHTER ELIZABETH VALLEJO [phone] SON PAM VALLEJO [phone] HOSPITALIZATION/MAJOR DIAGNOSTIC PROCEDURE CERVICAL SPINE FUSION SX 06/2003 L ARM BREAK REAPIR SX 11/1981 R LEG BREAK REPAIR SX 02/1982 PNEUMONIA 03/2009 BOWEL IMPACTION 09/2009 KINDEY FAILURE 02/2017 CHF 01/2019 STENTS 05/2019 FLU - ALSO DISCOVERED STROKE ON CT 11/2019 PNEUMONIA 11/2019 REVIEW OF SYSTEMS CONSTITUTIONAL: ANY RECENT FEVER NO . CHILLS NO . WEIGHT CHANGE OF UNKNOWN REASONS NO . GASTROENTEROLOGY: NEW UNEXPLAINABLE CHANGES IN BOWEL CONTROL NO . CONSTIPATION NO . GENITOURINARY: ANY NEW CHANGE IN BLADDER CONTROL? NO . NEUROLOGY: NEW ONSET DIZZINESS OR NEUROLOGICAL CHANGES NOT MENTIONED NO . NEW NUMBNESS OR PAIN PATTERNS NOT MENTIONED AND PERTINENT TO TODAY'S VISIT NO . CARDIOLOGY: NEW CHEST PRESSURE NO . NEW CHEST PAIN NO . RESPIRATORY: UNEXPLAINABLE COUGH NO . NEW SHORTNESS OF BREATH NO . VITAL SIGNS WT 189.8 LBS, HT 69 IN, BMI 28.03 INDEX, BP 135/56 MM HG, HR 53 /MIN, RR 18 /MIN, TEMP 98.2 F, OXYGEN SAT % 98%, SAFE IN ENV? (Y/N) Y, NA INITIALS AW 1129, REVIEWED BY: JOÃO. EXAMINATION GENERAL EXAMINATION: GENERALAWAKE,ALERT ,PLEASANT . PSYCHAFFECT NORMAL . LUNGS:LUNG TITUS ARE CLEAR TO AUSCULTATION BILATERALLY. GOOD MOVEMENT OF AIR . HEART:S1, S2 IN A REGULAR RATE AND RHYTHM. NO SIGNIFICANT MURMURS, RUBS OR GALLOPS NOTED . ASSESSMENTS LOW BACK PAIN - M54.5 (PRIMARY) DIABETIC PERIPHERAL NEUROPATHY - E11.42 CHRONIC PRESCRIPTION OPIATE USE - Z79.891 TREATMENT LOW BACK PAIN REFILL BUTRANS PATCH WEEKLY, 20 MCG/HR, 1 PATCH TO SKIN, TRANSDERMAL, APPLY 1 PATCH Q 7 DAYS MDD=1, 30 DAYS, 4, REFILLS 2 CONTINUE GABAPENTIN CAPSULE, 100 MG, 1 CAPSULE, ORALLY, ONCE A DAY PROCEDURE CODES FA211 ESTABILISHED PATIENT [facility] CHARGE DISPOSITION & COMMUNICATION FOLLOW UP 3 MONTHS (REASON: MEDICATION MANAGEMENT/DIABETIC PERIPHERAL NEUROPATHY) ELECTRONICALLY SIGNED BY JORGE HERRERA ON 08/14/2020 AT 12:56 PM EDT DISCLAIMER : THIS IS A VISIT SUMMARY EXTRACTED FROM THE [employer] CHART. IT IS NOT A COPY OF THE [employer] PROGRESS NOTE. JOVANNA
== END ==
LOC: M PAIN 11:00
PROVIDERS: ATTEND Nurse Practitioner Family
DX: M54.5 Low back pain (principal); E11.42 Type 2 diabetes mellitus with diabetic polyneuropathy; I10 Essential (primary) hypertension; J44.9 Chronic obstructive pulmonary disease, unspecified; K21.9 Gastro-esophageal reflux disease without esophagitis; G25.81 Restless legs syndrome; G47.33 Obstructive sleep apnea (adult) (pediatric); Z86.718 Personal history of other venous thrombosis and embolism; Z88.0 Allergy status to penicillin; Z88.1 Allergy status to other antibiotic agents; Z88.5 Allergy status to narcotic agent; Z88.6 Allergy status to analgesic agent; Z88.8 Allergy status to other drugs, medicaments and biological substances; Z91.030 Bee allergy status; Z91.040 Latex allergy status; Z79.01 Long term (current) use of anticoagulants; Z79.4 Long term (current) use of insulin; Z79.899 Other long term (current) drug therapy

== ENCOUNTER → 2020-08-31 | Outpatient (CLI) | payer MEDICARE, MEDICAID ==
[~2020-08-31] MED LIST changes: +CALC1CAP PO; +CLON0.5T17 PO; +ECOT81TA5 PO; +RENA1TAB PO; +VALS40TA9 PO; +[UNRECOGNIZED DRUG - OTHER] PO
== END ==
LOC: M LABSMTC 10:50
PROVIDERS: ATTEND Anesthesiology
DX: Z01.818 Encounter for other preprocedural examination (principal); Z20.828 Contact with and (suspected) exposure to other viral communicable diseases
CPT/HCPCS: C9803; U0003

== ENCOUNTER 2020-09-05 08:44 | Day surgery (SDC) | payer MEDICARE, MEDICAID ==
[~2020-09-05] VITALS: Ht 175.3 cm; Wt 79.1 kg
[~2020-09-05 08:44] MED LIST changes: +BSS IRR 500ML/OMIDRIA 4ML IRR BAG (OR ONLY) (J1097 PER ML) As Ordered ONE; +DUOVISC (0.50ML VISCOAT/0.55ML PROVISC) OPHTH KIT As Ordered ONE; +MIDAZOLAM INJ 2MG/2ML VIAL (J2250 PER 1MG) As Ordered ONE; +OFLOXACIN 0.3 % (OCUFLOX) OPTH SOL 5ML OD ONE; +PHENYLEPHRINE 2.5% OPHTH SOL 2ML OD ONE; +POVIDONE-IODINE 5% OPHTH PREP SOL 30ML As Ordered ONE; +PROPARACAINE 0.5% OPHTH SOL 15ML OD ONE; +TROPICAMIDE 1% OPHTH SOLN 2ML OD ONE; +fentaNYL 100 MCG/2 ML INJECTION (J3010) As Ordered ONE
[2020-09-05 10:25] LABS: INR 1.4; PROTHROMBIN TIME 17.5 SECONDS (12.5-14.3)
[2020-09-05] MEDS ORDERED: MIDAZOLAM INJ 2MG/2ML VIAL (J2250 PER 1MG) As Ordered ONE (11:31)
[2020-09-05 12:15] VITALS: BP 112/56
[2020-09-05] MEDS ORDERED: ROCURONIUM BROMIDE 50 MG/5 ML VIAL As Ordered ONE (12:35)
[2020-09-05] MEDS ORDERED: propofoL 200 MG/20 ML VIAL As Ordered ONE (13:01)
[2020-09-05] MEDS ORDERED: dexameTHASONE 4 MG/ML 1ML VIAL (J1100 PER 1MG) As Ordered ONE (13:01)
[2020-09-05] MEDS ORDERED: ePHEDrine SULFATE 25 MG/5 ML(5MG/ML) SYRINGE As Ordered ONE (13:08)
== END 2020-09-05 12:15 | disposition home or self-care (01) ==
LOC: M SDC 08:44
PROVIDERS: ATTEND Ophthalmology
DX: H25.11 Age-related nuclear cataract, right eye (principal); I10 Essential (primary) hypertension; E03.9 Hypothyroidism, unspecified; E11.40 Type 2 diabetes mellitus with diabetic neuropathy, unspecified; G47.30 Sleep apnea, unspecified; D64.9 Anemia, unspecified; E78.5 Hyperlipidemia, unspecified; F41.9 Anxiety disorder, unspecified; F32.9 Major depressive disorder, single episode, unspecified; J44.9 Chronic obstructive pulmonary disease, unspecified; I73.9 Peripheral vascular disease, unspecified; Z87.891 Personal history of nicotine dependence; Z88.8 Allergy status to other drugs, medicaments and biological substances; Z91.040 Latex allergy status; Z88.0 Allergy status to penicillin; Z86.73 Personal history of transient ischemic attack (TIA), and cerebral infarction without residual deficits; Z98.61 Coronary angioplasty status; Z79.01 Long term (current) use of anticoagulants; Z79.4 Long term (current) use of insulin; Z79.899 Other long term (current) drug therapy
CPT/HCPCS: 36415; 66984; 85610; J2250; J3010; V2632

== ENCOUNTER 2020-09-15 17:01 | Emergency (ER) | payer MEDICARE, MEDICAID ==
[~2020-09-15 17:01] MED LIST changes: -AZEL1SPR3; +AZEL1SPR3 NARES; -BSS IRR 500ML/OMIDRIA 4ML IRR BAG (OR ONLY) (J1097 PER ML) As Ordered ONE; -DUOVISC (0.50ML VISCOAT/0.55ML PROVISC) OPHTH KIT As Ordered ONE; -FLUTISP; +FLUTISP NARES; -MIDAZOLAM INJ 2MG/2ML VIAL (J2250 PER 1MG) As Ordered ONE; -OFLOXACIN 0.3 % (OCUFLOX) OPTH SOL 5ML OD ONE; -PHENYLEPHRINE 2.5% OPHTH SOL 2ML OD ONE; -POVIDONE-IODINE 5% OPHTH PREP SOL 30ML As Ordered ONE; -PROPARACAINE 0.5% OPHTH SOL 15ML OD ONE; -TROPICAMIDE 1% OPHTH SOLN 2ML OD ONE; -fentaNYL 100 MCG/2 ML INJECTION (J3010) As Ordered ONE
[2020-09-15] MEDS ORDERED: MORPHINE 2 MG/ML 1ML VIAL (J2270) IV ONE (17:30)
[2020-09-15] MEDS ORDERED: ONDANSETRON 4MG/2ML VIAL IV ONE (17:30)
[2020-09-15 17:36] LABS: BASO % 0.6 % (0.0-1.0); EOS # 0.4 10^3/uL (0.0-0.5); EOS % 8.2 % (0.0-3.0); HEMOGLOBIN 9.2 g/dl (13.5-17.5); LYMPH # 1.1 10^3/uL (1.5-5.0); LYMPH % 22.1 % (24.0-44.0); MEAN CORPUSCULAR HEMOGLOBIN 32.6 pg (27.0-33.0); MEAN CORPUSCULAR HGB CONC 31.7 g/dl (32.0-36.5); MEAN CORPUSCULAR VOLUME 102.8 fl (80.0-96.0); MONO # 0.5 10^3/uL (0.0-0.8); MONO % 10.5 % (0.0-5.0); NEUTROPHILS % 58.2 % (36.0-66.0); PLATELET COUNT, AUTOMATED 210 10^3/uL (150-450); RED BLOOD COUNT 2.82 10^6/uL (4.30-6.10); WHITE BLOOD COUNT 5.1 10^3/uL (4.0-10.0)
[2020-09-15 17:47] LABS: INR 1.81; PROTHROMBIN TIME 21.4 SECONDS (12.5-14.3)
[2020-09-15 18:03] LABS: ALBUMIN 3.5 GM/DL (3.2-5.2); BILIRUBIN,DIRECT 0.1 MG/DL (0.0-0.2); BILIRUBIN,TOTAL 0.4 MG/DL (0.2-1.0); FREE T4 1.15 NG/DL (0.76-1.46); THYROID STIMULATING HORMONE 5.2 uIU/ML (0.358-3.740); TOTAL PROTEIN 6.9 GM/DL (6.4-8.2)
[2020-09-15 18:12] LABS: CREATININE FOR GFR 2.7 MG/DL (0.70-1.30); GLOMERULAR FILTRATION RATE 25.1 (>49); POTASSIUM SERUM 3.8 MEQ/L (3.5-5.1)
[2020-09-15] MEDS ORDERED: MIRA0.5T PO (18:40)
[2020-09-15] MEDS ORDERED: BROM0.07 OD (18:40)
[2020-09-15] MEDS ORDERED: INVE1SUS OD (18:40)
[2020-09-15] MEDS ORDERED: RENV0.8P PO (18:40)
[2020-09-15] MEDS ORDERED: WARF4TAB52 PO (18:40)
[2020-09-15] MEDS ORDERED: DONE10TA90 PO (18:40)
[2020-09-15] MEDS ORDERED: MOXI0.5S OD (18:42)
--- NOTE | 2020-09-15 18:52 | REP ---
INDICATION: CHEST PAIN COMPARISON: 12/20/2019 TECHNIQUE: Portable AP view of the chest FINDINGS: Very subtle multifocal airspace disease consistent with multifocal pneumonia and correlation is recommended. Note discrete consolidation or effusion. No pneumothorax. Mild cardiomegaly is again suggested. IMPRESSION: Subtle multifocal airspace disease consistent with pneumonia. <Electronically signed by Ronal Ro > 09/15/20 0819
--- NOTE | 2020-09-15 20:05 | ECGEPIP ---
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
[2020-09-15 22:45] VITALS: BP 145/66
--- NOTE | 2020-09-16 06:14 | ECGEPIP ---
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
== END 2020-09-15 23:58 | disposition home or self-care (01) ==
LOC: M ED 17:01
DX: R07.9 Chest pain, unspecified (principal); R11.0 Nausea; R00.2 Palpitations; R06.02 Shortness of breath; J44.9 Chronic obstructive pulmonary disease, unspecified; E10.9 Type 1 diabetes mellitus without complications; I50.9 Heart failure, unspecified; I48.91 Unspecified atrial fibrillation; D64.9 Anemia, unspecified; Z95.5 Presence of coronary angioplasty implant and graft; Z79.899 Other long term (current) drug therapy; Z79.82 Long term (current) use of aspirin; Z79.4 Long term (current) use of insulin; Z79.01 Long term (current) use of anticoagulants; Z88.0 Allergy status to penicillin; Z88.1 Allergy status to other antibiotic agents; Z88.8 Allergy status to other drugs, medicaments and biological substances; Z91.040 Latex allergy status
CPT/HCPCS: 71045; 80048; 80076; 83690; 84439; 84443; 84484; 85025; 85610; 85730; 87040; 93005; 93041; 94760; 96374; 96375; 99285; J2270; J2405; U0002

== ENCOUNTER → 2020-09-28 | Outpatient (CLI) | payer MEDICARE, MEDICAID ==
[~2020-09-28] MED LIST changes: +BETA0.0543 TOP; +BROM0.07 OD; +DONE10TA90 PO; +ENTR1TAB PO; +INVE1SUS OD; +MIRA0.5T PO; +MOXI0.5S OD; +PROL60SO SC; +TRIA2LOT TOP; +WARF4TAB52 PO
== END ==
LOC: M LABSMTC 08:25
PROVIDERS: ATTEND Anesthesiology
DX: Z01.812 Encounter for preprocedural laboratory examination (principal); Z20.828 Contact with and (suspected) exposure to other viral communicable diseases

== ENCOUNTER 2020-10-02 09:59 | Inpatient (IN) | payer MEDICARE, MEDICAID ==
[2020-10-02] VITALS (29 sets, daily range): BP systolic 107–181; BP diastolic 53–97
[~2020-10-02] VITALS: Ht 175.3 cm; Wt 86.6 kg
[~2020-10-02 09:59] MED LIST changes: -BETA0.0543 TOP; -ENTR1TAB PO; -PROL60SO SC; -TRIA2LOT TOP
[2020-10-02] MEDS ORDERED: BUMETANIDE 1 MG/4 ML INJ (S0171) IV ONE (10:45)
[2020-10-02] MEDS ORDERED: ASPI81CH33 PO (11:09)
[2020-10-02] MEDS ORDERED: BETA0.0543 TOP (11:09)
[2020-10-02] MEDS ORDERED: TRIA2LOT TOP (11:09)
[2020-10-02] MEDS ORDERED: PROL60SO SC (11:09)
[2020-10-02] MEDS ORDERED: ENTR1TAB PO (11:09)
[2020-10-02 11:16] LABS: BASO % 0.2 % (0.0-1.0); EOS % 0.2 % (0.0-3.0); LYMPH # 1.3 10^3/uL (1.5-5.0); LYMPH % 10.9 % (24.0-44.0); MEAN CORPUSCULAR HEMOGLOBIN 32.8 pg (27.0-33.0); MEAN CORPUSCULAR HGB CONC 31.5 g/dl (32.0-36.5); MEAN CORPUSCULAR VOLUME 104.4 fl (80.0-96.0); MONO # 0.7 10^3/uL (0.0-0.8); MONO % 5.6 % (0.0-5.0); NEUTROPHILS # 9.5 10^3/uL (1.5-8.5); NEUTROPHILS % 82.6 % (36.0-66.0); PLATELET COUNT, AUTOMATED 198 10^3/uL (150-450); RED BLOOD COUNT 1.37 10^6/uL (4.30-6.10); WHITE BLOOD COUNT 11.5 10^3/uL (4.0-10.0)
[2020-10-02 11:25] LABS: INR 3.15; PROTHROMBIN TIME 33.1 SECONDS (12.5-14.3)
[2020-10-02 11:27] LABS: HEMATOCRIT 14.3 % (42.0-52.0)
[2020-10-02 11:31] LABS: HEMOGLOBIN 4.5 g/dl (13.5-17.5)
--- NOTE | 2020-10-02 11:42 | REP ---
INDICATION: DYSPNEA/COUGH. COMPARISON: Abdomen and pelvis CT dated 04/13/2016. TECHNIQUE: Supine AP view of the chest, 2 supine views of the abdomen, 2 decubitus views of the abdomen performed with the left side down. FINDINGS: Supine AP chest: Comparison is the PA and lateral chest of 11/30/2019. The lung melissa are clear. Cardiac size is enlarged, unchanged. The leonie, mediastinum, and skeletal structures are unremarkable. Supine positioning precludes evaluation for free subdiaphragmatic air, hence the abdominal decubitus views. Abdomen supine and decubitus views: On the decubitus views no free intraperitoneal air is identified. There are no air-fluid levels. There is mild distention of a few small bowel loops on the left. This is nonspecific. There is no colonic distention. There are 2 metallic densities projected over the inferior pelvis on the right of uncertain significance. This may be artifact in clothing. There are degenerative disc changes throughout the lumbar spine. IMPRESSION: Nonspecific bowel gas pattern. No free intraperitoneal air. There are 2 metallic densities projected over the pelvis inferiorly on the right, possibly artifact from clothing. <Electronically signed by Curtis Levy > 10/02/20 [id number]
[2020-10-02 12:00] LABS: ALBUMIN 2.7 GM/DL (3.2-5.2); BILIRUBIN,DIRECT 0.1 MG/DL (0.0-0.2); BILIRUBIN,TOTAL 0.4 MG/DL (0.2-1.0); CALCIUM LEVEL 6.4 MG/DL (8.8-10.2); CK-MB VALUE MASS 3.1 NG/ML (<3.6); CREATININE FOR GFR 6.68 MG/DL (0.70-1.30); GLOMERULAR FILTRATION RATE 8.8 (>49); MB/CK RELATIVE INDEX 1.38 (< OR =4); POTASSIUM SERUM 4.8 MEQ/L (3.5-5.1); TOTAL PROTEIN 5.4 GM/DL (6.4-8.2); TROPONIN I 0.03 NG/ML (< 0.10)
[2020-10-02] MEDS ORDERED: ALBUTEROL 90 MCG/ACT 8GM HFA INHALER INH PRN (12:30)
[2020-10-02] MEDS ORDERED: MIRALAX *UNIT DOSE* 17GM PACKET PO PRN (12:30)
[2020-10-02] MEDS ORDERED: ALBUTEROL SULFATE 2.5 MG/0.5 ML INH NEB SOLN INH PRN (12:30)
[2020-10-02] MEDS ORDERED: FLUTICASONE PROP 0.05% NASAL SPRAY 16 GM (FLONASE) NARES PRN (12:30)
[2020-10-02] MEDS ORDERED: DENOSUMAB 60MG/1ML SYRINGE (PROLIA) (J0897 PER 1MG) SC SCH (12:30)
--- NOTE | 2020-10-02 12:43 | HPEPDOC ---
[facility] Medical History & Physical Date of Admission Oct 02, 2020 Date of Service: Oct 02, 2020 History and Physical CHIEF COMPLAINT: Generalized weakness HISTORY OF PRESENT ILLNESS: 70M with extensive medical history as indicated, presents for several day history of worsening generalized weakness. Also complains of shortness of breath, which started just a few hours ago. Denies cough, chest pain, abdominal pain, nausea, vomiting, diarrhea. PAST MEDICAL HISTORY: DVT CHRONIC PHLEBITIS CHRONIC VENOUS INSUFFICIENCY PERIPHERAL NEUROPATHY TYPE 2 DIABETES HLD HTN COPD HX OF DEPRESSION DDD/DJD GERD DERMATITIS HERPETIFORMIS-- + BX 05/03 DR MCDONALD ADENOMATOUS COLON POLYP 2009 RESTLESS LEG SYNDROME CELIAC DISEASE RIGTH SHOULDER NERVE IMPINGEMENT/RIGHT CARPEL TUNNEL - DR. PRADO GORDON ON CPAP SUBCLINICAL HYPOTHYROIDISM 06/07 DIVERTICULOSIS ESRD/HD L2/L3 VERTERAE FX CVA ALLERGIES: Please see below. REVIEW OF SYSTEMS: Negative except as per HPI. HOME MEDICATIONS: Please see below. PHYSICAL EXAMINATION: VITAL SIGNS: See below General: NAD, lying comfortably in bed HEENT: NC/AT, EOMI Lungs: coarse breath sounds Heart: +S1S2, RRR Abd: soft, tender, distended Ext: b/l LE edema LABORATORY DATA: See below. MICROBIOLOGY: Please see below. A/P: 70M with extensive medical history as indicated presents for several day history of worsening weakness, found to be anemic and in gross fluid overload. #acute anemia - possible acute blood loss anemia - transfuse 2PRBC with HD - serial H/H - possibly UGIB - history of stomach ulcers - GI c/s pending #ESRD/HD - nephrology c/s pending #Hx DVT - on warfarin - on hold secondary to bleed and slightly supratherapeutic INR #DM #HLD #HTN #COPD #Depression #GERD #RESTLESS LEG SYNDROME #GORDON ON CPAP #SUBCLINICAL HYPOTHYROIDISM 06/07 #CVA #DVT prophylaxis - supratherapeutic on coumadin for DVT Vital Signs Vital Signs Date Time Temp Pulse Resp B/P (MAP) Pulse Ox O2 Delivery O2 Flow Rate FiO2 10/02/20 12:16 122/56 (78) 10/02/20 12:15 63 97 10/02/20 10:08 97.0 18 Room Air Laboratory Data Labs 24H Laboratory Tests 2 10/02/20 10:42: Bedside Glucose (Misc Panel) 156H 10/02/20 10:52: Immature Granulocyte % (Auto) 0.5, Neutrophils (%) (Auto) 82.6H, Lymphocytes (%) (Auto) 10.9L, Monocytes (%) (Auto) 5.6H, Eosinophils (%) (Auto) 0.2, Basophils (%) (Auto) 0.2, Neutrophils # (Auto) 9.5H, Lymphocytes # (Auto) 1.3L, Monocytes # (Auto) 0.7, Eosinophils # (Auto) 0.0, Basophils # (Auto) 0.0, Nucleated Red Blood Cells % (auto) 0.0, Prothrombin Time 33.1H, Prothromb Time International Ratio 3.15, Anion Gap 9, Glomerular Filtration Rate 8.8L, Lactic Acid Level 1.7, Calcium Level 6.4L, Total Bilirubin 0.4, Direct Bilirubin 0.1, Aspartate Amino Transf (AST/SGOT) 15, Alanine Aminotransferase (ALT/SGPT) 25, Alkaline Phosphatase 70, Total Creatine Kinase 224, Creatine Kinase MB 3.1, Creatine Kinase MB Relative Index 1.38, Troponin I 0.03, JN-Hys-H-Type Natriuretic Peptide 82424M, Total Protein 5.4L, Albumin 2.7L, Albumin/Globulin Ratio 1.0 10/02/20 10:53: Coronavirus (COVID-19)(PCR) NEGATIVE, Influenza Type A (RT-PCR) NEGATIVE, Influenza Type B (RT-PCR) NEGATIVE, Respiratory Syncytial Virus (PCR) NEGATIVE CBC/BMP Laboratory Tests 10/02/20 10:52 Home Medications Scheduled Aspirin (Aspirin) 81 Mg Tab.chew, 81 MG PO DAILY Atorvastatin Calcium (Atorvastatin Calcium) 40 Mg Tab, 40 MG PO QPM Bromfenac Sodium (Bromsite) 0.075% 5ML Drops, 1 DROP OD BID DUE TO STOP ON 10/04/20 Bumetanide (Bumetanide) 2 Mg Tablet, 2 MG PO DAILY Buprenorphine (Butrans) 20 Mcg/Hr Dis, 20 MCG TD QWEEK APPLIES ON FRIDAYS Calcitriol (Calcitriol) 0.25 Mcg Cap, 0.25 MCG PO 3XW RECEIVES AT DIALYSIS MON, WED, FRI Calcium Acetate (Calcium Acetate) 667 Mg Capsule, 667 MG PO WM Clonazepam (Clonazepam) 0.5 Mg Tab.rapdis, 0.5 MG PO BID 1100, 2300 Denosumab Injection (Prolia) 60 Mg/1 Ml Syringe, 60 MG SC ASDIRECTED EVERY 6 MONTHS Donepezil HCl (Donepezil HCl) 10 Mg Tablet, 10 MG PO DAILY Epoetin Lopez (Procrit) 20,000 Unit/Ml Inj, 20,000 UNIT INJ QMONTH Ergocalciferol (Vitamin D2) (Vitamin D2) 50,000 Units Cap, 50,000 UNITS PO QWEEK MONDAYS Fluticasone Propion/Salmeterol (Advair Hfa 230-21 Mcg Inhaler) 1 Aer Aer, 2 PUFF INH BID Gabapentin (Gabapentin) 100 Mg Capsule, 100 MG PO QHS Insulin Glargine (Lantus) 1 Units/0.01 Ml Susp, 8 UNITS SC QAM Insulin Glargine (Lantus) 1 Units/0.01 Ml Susp, 5 UNITS SC QHS Insulin Lispro (Humalog Kwikpen U-100) 100 Unit/1 Ml Insuln.pen, 7 UNITS SC BID BREAKFAST AND DINNER Insulin Lispro (Humalog Kwikpen U-100) 100 Unit/1 Ml Insuln.pen, 5 UNITS SC DAILY LUNCH Lidocaine/Prilocaine (Lidocaine-Prilocaine Cream) 2.5%/2.5% Cream..g., 1 DOSE T OP 3XW APPLY TO PORT PRIOR TO DIALYSIS Loteprednol Etabonate (Inveltys) 1% 2.8ML Drops.susp, 1 DROP OD BID DUE TO STOP ON 10/04/20 [place]-3/Dha/Epa/Fish Oil (Fish Oil 1,000 mg Softgel) 1 Each Capsule, 1,000 MG PO TID Pramipexole Di-HCl (Mirapex) 0.5 Mg Tablet, 0.5 MG PO TID 1100, 1400, 2300 Sacubitril/Valsartan (Entresto 24 mg-26 mg Tablet) 1 Each Tablet, 1 TAB PO DAILY Sevelamer Carbonate (Renvela Oral Suspension) 0.8 Gm Powd.pack, 0.8 GM PO WM MIX WITH WATER AND DRINK Tamsulosin HCl (Flomax) 0.4 Mg Cap, 0.4 MG PO QHS Warfarin Sodium (Warfarin Sodium) 5 Mg Tablet, 5 MG PO QPM TAKE WITH THREE 1 MG TABS FOR 8MG TOTAL Warfarin Sodium (Warfarin Sodium) 1 Mg Tablet, 3 MG PO QPM TAKE WITH 5MG TAB FOR 8MG TOTAL Scheduled PRN Acetaminophen (Acetaminophen) 500 Mg Tab, 1,000 MG PO Q6H PRN for PAIN Albuterol Sulf (Albuterol Sulfate) 2.5 Mg/3 Ml Nebu, 2.5 MG INH Q4H PRN for SOB/WHEEZING Albuterol Sulfate (Proair Hfa) 108 Mcg/Act Aer, 2 PUFF INH Q4H PRN for SOB/WHEE ZING Azelastine HCl (Azelastine HCl) 0.1% [place].pump, 2 SPRAY NARES DAILY PRN for RUNNY NOSE Betamethasone Dipropionate (Betamethasone Dipropionate) 0.05% Cream..g., 1 DOSE TOP DAILY PRN for REDNESS/IRRITATION APPLY TO ARMS Fluticasone Propionate (Fluticasone Propionate) 50 Mcg/Act Spr, 2 SPRAY NARES DAILY PRN for CONGESTION Glucagon,Human Recombinant (Glucagon Emergency Kit) 1 Mg Kit, 1 MG INJ ASD IRECTED PRN for LOW BLOOD SUGAR Hydrocodone/Acetaminophen (Hydrocodone-Acetamin 5-325 mg) 1 Tab Tab, 1 TAB PO Q6H PRN for PAIN Nitroglycerin (Nitroglycerin) 0.4 Mg Tab.subl, 0.4 MG SL NITRO PRN for CHEST PAIN Polyethylene Glycol 3350 (Miralax) 1 Pow Pow, 17 GM PO TID PRN for CONSTIPATION Triamcinolone Acetonide (Triamcinolone Acetonide) 60 Ml Lotion, 1 DOSE TOP BID PRN for PRURITIS Allergies Coded Allergies: bacitracin (Verified Allergy, Severe, FACIAL SWELLING, 09/26/20) carbamazepine (Verified Allergy, Severe, ANAPHYLAXIS, 09/26/20) neomycin (Verified Allergy, Severe, FACIAL SWELLING, 09/26/20) phenobarbital (Verified Allergy, Severe, ANAPHYLAXIS, 09/26/20) phenytoin (Verified Allergy, Severe, ANAPHYLAXIS, 09/26/20) polymyxin B (Verified Allergy, Severe, FACIAL SWELLING, 09/26/20) Penicillins (Verified Allergy, Intermediate, ITCHING, 09/26/20) latex (Verified Allergy, Intermediate, SEVERE RASH AND HIVES, 09/26/20) lisinopril (Verified Allergy, Intermediate, RASH, 08/29/20) meperidine (Verified Allergy, Intermediate, ITCHING, 08/29/20) metformin (Verified Allergy, Mild, RASH, 08/29/20) Aminoglycosides (Verified Allergy, Unknown, 08/29/20) NSAIDS (Non-Steroidal Anti-Inflamma (Verified Adverse Reaction, Intermediate, KIDNEY DISEASE, 09/26/20) capsaicin (Verified Adverse Reaction, Intermediate, EXCESSIVE BURNING, 08/29/20) dapsone (Verified Adverse Reaction, Intermediate, ANEMIA, 08/29/20) levofloxacin (Verified Adverse Reaction, Intermediate, HEADACHE, 08/29/20) pioglitazone (Verified Adverse Reaction, Intermediate, EDEMA, 08/29/20) ropinirole (Verified Adverse Reaction, Intermediate, ELEVATED LIVER ENZYMES, 08/29/20) rosuvastatin (Verified Adverse Reaction, Mild, HEADACHE, 09/26/20) A-FIB/CHADSVASC A-FIB History Current/History of A-Fib/PAF?: No AARON TURNER MD Oct 02, 2020 12:43
[2020-10-02] MEDS ORDERED: LIDOCAINE 1% SDV 5ML VIAL SC PRN (12:45)
[2020-10-02] MEDS ORDERED: PANTOPRAZOLE 40MG VIAL (C9113 PER 1) IV ONE (12:45)
[2020-10-02] MEDS ORDERED: SODIUM CHLORIDE 0.9% 1000ML IV PRN (12:45)
[2020-10-02] MEDS: ASPIRIN 81 MG CHEW TABLET PO SCH (14:17)
[2020-10-02 14:43] LABS: ABG PARTIAL PRESSURE O2 24.4 mmHg (75.0-100.0); ABG TOTAL CO2 26.6 MEQ/L (23.0-31.0); ABG pH (ARTERIAL) 7.377 UNITS (7.350-7.450)
[2020-10-02 14:44] LABS: ABG BASE EXCESS 0.1 (-2.0-2.0); ABG HCO3 25.3 MEQ/L (22.0-26.0); ABG O2 SATURATION 33.1 % (95.0-99.0); ABG STANDARD HCO3 24.1 MEQ/L (22.0-26.0)
[2020-10-02] MEDS: BUMETANIDE 1 MG TAB PO SCH (15:23)
[2020-10-02] MEDS: CALCIUM ACETATE 667MG GELCAP PO SCH ×2 (15:24→17:01)
[2020-10-02] MEDS: ENTRESTO 24-26MG TABLET (SACUBITRIL/VALSARTAN) PO SCH (15:24)
[2020-10-02] MEDS: PRAMIPEXOLE 0.25 MG TAB PO SCH ×2 (17:50→21:05)
[2020-10-02] MEDS: OMEGA-3 1000MG CAPSULE PO SCH ×2 (17:50→21:05)
[2020-10-02] MEDS: ADVAIR HFA 230/21MCG INHALER INH SCH (19:21)
--- NOTE | 2020-10-02 20:57 | ECGEPIP ---
[facility] - ED Test Date: 2020-10-02 Pat Name: YOVANI VALLEJO Department: Room: - Gender: Male Acupuncture Physician: claudia : [id number] Requested By: TENNILLE TAMAYO PA-C. Order Number: [id number] Reading MD: Tatiana Bustamante Measurements Intervals [place] Rate: 62 P: -49 W[place]: 211 QRS: 2 QRSD: 109 T: 137 QT: 448 QTc: 457 Interpretive Statements SINUS RHYTHM WITH FIRST DEGREE AV BLOCK INCOMPLETE RIGHT BUNDLE BRANCH BLOCK ST DEVIATION AND MODERATE T-WAVE ABNORMALITY, CONSIDER LATERAL ISCHEMIA, COMPARED 09/15/20 Electronically Signed on 10-02-2020 20:57:07 EST by Tatiana Bustamante
[2020-10-02] MEDS: HumaLOG INSULIN (NovoLOG) PER UNIT SC SCH (21:00)
[2020-10-02] MEDS: TAMSULOSIN 0.4 MG CAP PO SCH (21:04)
[2020-10-02] MEDS: ATORVASTATIN 20 MG TAB PO SCH (21:04)
[2020-10-02] MEDS: ACETAMINOPHEN 500 MG TAB PO PRN (21:04)
[2020-10-02] MEDS: GABAPENTIN 100 MG CAP PO SCH (21:05)
[2020-10-02 21:37] LABS: HEMATOCRIT 25.5 % (42.0-52.0)
[2020-10-02 21:39] LABS: HEMOGLOBIN 8.1 g/dl (13.5-17.5)
[2020-10-02 22:10] LABS: CK-MB VALUE MASS 2.5 NG/ML (<3.6); CPK CREATINE PHOSPHOKINASE 244 U/L (39-308); MB/CK RELATIVE INDEX 1.02 (< OR =4); TROPONIN I < 0.02 NG/ML (< 0.10)
--- NOTE | 2020-10-02 23:05 | CR ---
INPATIENT CONSULTATION DATE OF CONSULTATION: 10/02/2020 REQUESTING PHYSICIAN: Dr. Santa REASON FOR CONSULTATION: Severe anemia and fluid overload in this gentleman with end-stage renal disease. HISTORY OF PRESENT ILLNESS: Mr. Castillo is well known to me. He is a 70-year-old male with a past medical history of multiple chronic medical problems including type 2 diabetes, hypertension, coronary artery disease, atrial fibrillation, depression, end-stage renal disease and other comorbid conditions mentioned below. Patient states over the past several days to week, he has been feeling progressively exhausted, fatigued and tired and has not been able to do much of anything at home. He also reports that he has been getting progressively short of breath and has had increased leg edema and has not been able to reach his dry weight for the past several dialysis treatments in a row. He recently had blood work done through the outpatient hemodialysis unit, that showed a hemoglobin of 5.0 earlier this morning and when he came for his dialysis treatment, he was directed to come to the Emergency Room for further evaluation and management. In the Emergency Room, he was found to be in florid congestive heart failure and laboratory studies revealed a hemoglobin of 4.5 and nephrology consultation was requested and the patient is arranged for urgent dialysis this evening with transfusion of packed red blood cells. PAST MEDICAL HISTORY: Significant for longstanding type 2 diabetes, hypertension, coronary artery disease with prior myocardial infarction, congestive heart failure, history of recurrent DVTs, history of paroxysmal atrial fibrillation, anemia of chronic renal failure, history of cerebellar stroke, depression, spinal stenosis, secondary hyperparathyroidism of renal origin. PAST SURGICAL HISTORY: AV fistula, colonoscopies, spinal fusion, carpal tunnel release. FAMILY HISTORY: Negative for end-stage renal disease. PERSONAL AND SOCIAL HISTORY: He is . He is an ex-smoker. Denies alcohol or drug use. ALLERGIES: Patient has multiple medication allergies including aminoglycoside, NSAIDs, penicillin, Bacitracin, Capsaicin, Carbamazepine, Dapsone. For remainder of allergies, please see electronic medical record. HOME MEDICATIONS: Include aspirin, Atorvastatin, Bisoprolol, Bumetanide, Calcitriol, Plavix, Duloxetine, Vitamin D, Fluoxetine, Gabapentin, insulin, Isosorbide, Tilden-3, Pantoprazole, Pramipexole, Sevelamer, PhosLo, Flomax and Coumadin. REVIEW OF SYSTEMS: CONSTITUTIONAL: He reports increasing fatigue and weakness and lethargy. He denies fevers. EYES: He denies visual changes or tearing. HEENT: He denies rhinorrhea or odynophagia. CARDIAC: He reports increasing and severe leg edema. History of myocardial infarction in the past. He denies chest pain. RESPIRATORY: Significant for shortness of breath at rest. He denies hemoptysis. GI: He reports dry heaves, but denies vomiting or diarrhea. GENITOURINARY: He has a history of BPH. He denies dysuria or hematuria. ENDOCRINE: Significant for type 2 diabetes and secondary hyperparathyroidism. PSYCHOSOCIAL SYSTEM: Significant for anxiety and depression. NEUROLOGIC SYSTEM: Significant for spinal stenosis and peripheral neuropathy. He also has a prior history of stroke. 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 PHYSICAL EXAMINATION: VITAL SIGNS: Temperature 98.5, pulse 75, respiratory rate 18, blood pressure 107/53, saturating 91% on room air. INTAKE AND OUTPUT: Intake and output are not recorded. GENERAL: Patient is seen in the Emergency Room, lying in the stretcher, awake, alert and oriented. He is anxious, but in no acute distress. HEENT: Extraocular muscles are intact. There is conjunctival pallor. Tongue is dry. Neck veins are 12 cm elevated above sternal angle. CVS: Heart sounds are irregular. There is 3+ leg edema bilaterally. There is no pericardial friction rub. LUNGS: Lung sounds are diminished with bibasilar rales. ABDOMEN: Soft and nontender. He appears to have ascites. SKIN: Scattered ecchymosis. EXTREMITIES: There is a fistula in the right arm which is patent. NEUROLOGIC: Oriented x3, interactive, conversational and appears to be at baseline mentation. PSYCHIATRIC: He is anxious. LABORATORY DATA: White count 11.5, hemoglobin 4.5, platelets 198,000. Sodium 134, potassium 4.8, BUN 57. Lactic acid 1.7. BNP 55,000. IMAGING STUDIES: Abdominal x-ray done today showed nonspecific bowel gas pattern, no free intraperitoneal air. INPATIENT MEDICATIONS: Tylenol p.r.n., Albuterol p.r.n., aspirin 81 mg p.o. daily, Atorvastatin 40 mg p.o. q.p.m., Bumex 2 mg p.o. daily, PhosLo 667 mg p.o. with meal, Gabapentin 100 mg p.o. q.h.s., Tilden-3 fish oil one cap three times a day, Protonix 40 mg I.V. times one, MiraLax p.r.n., Advair two puffs b.i.d., Flomax 0.4 mg p.o. q.h.s. PROBLEMS: 1. Acute on chronic anemia: Patient has underlying anemia of chronic renal failure with usual hemoglobin of around 9 to 10. Now he has hemoglobin down to 4.5, possibly related to a GI bleed. He is receiving 2 units of packed red blood cells with dialysis this evening in the Intensive Care Unit and he receiving an additional 1 unit of packed red blood cells at the bedside. He is for serial hemoglobin and hematocrit monitoring. He received Protonix. His Coumadin is held. GI consultation is pending. 2. End-stage renal disease on hemodialysis on Wednesday, Wednesday, Wednesday schedule: Patient is markedly volume overloaded. He has not reached his dry weight on the last several dialysis flow sheets that I looked at. He is going to be dialyzed today and I plan to dialyze him again on and Wednesday for [id number] dialysis with fluid removal for optimization of his fluid status. He is getting 2 units of packed red blood cells with dialysis today. We are doing Heparin free dialysis in view of severe anemia and probable GI bleed. Iron stores are ordered and we will continue him on Aranesp with dialysis as well. 3. Decompensated congestive heart failure: I see no echocardiogram since 2019, I would suggest to get a repeat echocardiogram given that the patient is now on Entresto. He likely has some degree of systolic dysfunction. Volume status is regulated via dialysis. I will plan for three [id number] dialysis treatments for correction of his fluid status. 4. Hypertension: Blood pressures were soft when the patient first presented to the Emergency Room, but have improved. He continues on Entresto. 5. History of recurrent DVT: Patient's Coumadin is on hold given supratherapeutic INR and probable GI bleed. Thank you for involving me in the care of Mr. Castillo. I will be happy to follow him along with you.
[2020-10-03] VITALS (27 sets, daily range): BP systolic 86–151; BP diastolic 42–65
[2020-10-03] MEDS ORDERED: DEXTROSE 50% 50 ML SYRINGE IV PRN (01:15)
[2020-10-03] MEDS ORDERED: GLUCAGON INJ 1MG VIAL SC PRN (01:15)
[2020-10-03] MEDS ORDERED: GLUCOSE 4GM CHEW TABLET PO PRN (01:15)
[2020-10-03 05:18] LABS: HEMATOCRIT 21.6 % (42.0-52.0); HEMOGLOBIN 7.2 g/dl (13.5-17.5); MEAN CORPUSCULAR HEMOGLOBIN 31.7 pg (27.0-33.0); MEAN CORPUSCULAR HGB CONC 33.3 g/dl (32.0-36.5); MEAN CORPUSCULAR VOLUME 95.2 fl (80.0-96.0); PLATELET COUNT, AUTOMATED 141 10^3/uL (150-450); RED BLOOD COUNT 2.27 10^6/uL (4.30-6.10); WHITE BLOOD COUNT 8.5 10^3/uL (4.0-10.0)
[2020-10-03 05:31] LABS: INR 2.94; PROTHROMBIN TIME 31.3 SECONDS (12.5-14.3)
[2020-10-03 05:48] LABS: ALBUMIN 2.6 GM/DL (3.2-5.2); BILIRUBIN,TOTAL 0.9 MG/DL (0.2-1.0); CREATININE FOR GFR 3.68 MG/DL (0.70-1.30); GLOMERULAR FILTRATION RATE 17.5 (>49); PERCENT SATURATION 14.7 % (19.7-50.0); POTASSIUM SERUM 3.8 MEQ/L (3.5-5.1); TOTAL PROTEIN 5.3 GM/DL (6.4-8.2)
[2020-10-03] MEDS: HumaLOG INSULIN (NovoLOG) PER UNIT SC SCH ×4 (07:30→21:00)
[2020-10-03] MEDS: ADVAIR HFA 230/21MCG INHALER INH SCH ×2 (08:00→20:15)
[2020-10-03] MEDS: CALCIUM ACETATE 667MG GELCAP PO SCH ×3 (08:00→18:00)
[2020-10-03] MEDS: ASPIRIN 81 MG CHEW TABLET PO SCH (08:40)
[2020-10-03] MEDS: OMEGA-3 1000MG CAPSULE PO SCH ×3 (08:40→21:14)
[2020-10-03] MEDS: ENTRESTO 24-26MG TABLET (SACUBITRIL/VALSARTAN) PO SCH (08:40)
[2020-10-03] MEDS: PRAMIPEXOLE 0.25 MG TAB PO SCH ×3 (08:40→21:13)
[2020-10-03] MEDS: BUMETANIDE 1 MG TAB PO SCH (09:00)
[2020-10-03] MEDS ORDERED: SODIUM CHLORIDE 0.9% 1000ML IV PRN (09:45)
[2020-10-03] MEDS ORDERED: LIDOCAINE 1% SDV 5ML VIAL SC PRN ×2 (09:45→23:15)
--- NOTE | 2020-10-03 10:33 | IPNPDOC ---
Text Note Date of Service The patient was seen on 10/03/20. NOTE SUBJECTIVE: Patient was seen and examined this morning at bedside. He states he is feeling improved today concerning his weakness. He states his leg swelling still goes all the way up his legs. He denies abdominal pain. OBJECTIVE: VITAL SIGNS: See below GENERAL: Alert, comfortable, in no acute distress HEENT: Normocephalic, atraumatic, EOMI, moist mucous membranes NECK: Supple, trachea midline CARDIOVASCULAR: Regular rate and rhythm, normal S1 and S2. No murmurs, rubs, or gallops RESPIRATORY: Clear to auscultation bilaterally with equal air entry bilaterally. No wheezing, rhonchi, or rales. ABDOMEN: Soft, nondistended, bowel sounds present. Mild diffuse tenderness. EXTREMITIES: Bilateral 3+ edema extending up to the sacrum. Fistula present in the right arm with bruit. SKIN: [place], warm, dry NEUROLOGIC: Alert and oriented x3 to person, place and time. No focal deficits appreciated PSYCHIATRIC: Mood and affect appropriate ASSESSMENT/PLAN: 70 year old male who presented with several days of worsening weakness, found to be anemic and fluid overloaded admitted for urgent hemodialysis, blood transfusi on, and further work up of anemia # Acute on chronic anemia - s/p 3 units PRBCs. Will transfuse one additional unit today during HD - likely secondary to GI bleed, Dr. Lange consulted appreciate recommendations - protonix IV 40mg BID. plan for EGD/colonoscopy tomorrow - monitor H/H and transfuse as indicated - Nephrology has also added IV iron infusions # ESRD on HD - states he attends HD four days a week, MWFSat - HD per nephrology while inpatient # Hx DVT - on warfarin, INR currently supratherapeutic - hold warfarin until INR returns to therapeutic range of 2.0-3.0 # Diabetes mellitus - consistent carb diet. FSBS ACHS with SSI while inpatient - hypoglycemic protocol # CHF - continue home entresto and bumex #COPD -continue home inhalers #RLS - continue home gabapentin and mirapex #GORDON - continue home CPAP while inpatient #HLD - continue home statin #BPH - continue home flomax DVT prophylaxis: on full anticoagulation with warfarin, currently supratherapeutic Disposition: pending clinical improvement, EGD/colonoscopy VS,Fishbone, I+O VS, Fishbone, I+O Laboratory Tests 10/02/20 10:52 10/02/20 21:27 10/03/20 04:51 Vital Signs Date Time Temp Pulse Resp B/P (MAP) Pulse Ox O2 Delivery O2 Flow Rate FiO2 10/03/20 09:00 59 139/64 (89) 99 10/03/20 08:00 2.0 10/03/20 08:00 98.7 14 Nasal Cannula 10/02/20 19:00 99 I&O- Last 24 Hours up to 6 AM 10/03/20 06:00 Intake Total 2155 ml Output Total 1700 ml Balance 455 ml KELSI FORD D.O. Oct 03, 2020 10:33
[2020-10-03] MEDS: IRON SUCROSE 100MG 5ML VIAL (J1756 PER 1MG) IV SCH (15:22)
[2020-10-03 17:58] LABS: HEMATOCRIT 23.3 % (42.0-52.0); HEMOGLOBIN 7.8 g/dl (13.5-17.5)
[2020-10-03] MEDS ORDERED: BISACODYL 5 MG TAB PO ONE (19:45)
--- NOTE | 2020-10-03 20:27 | IPN ---
PROGRESS NOTE DATE: 10/03/2020 SUBJECTIVE: Patient is seen and examined this morning at the bedside in the Intensive Care Unit and later receiving dialysis. He reports he feels better than when he came in. Nursing staff reports he has still been weak and unsteady when he tries to move from the bed to the chair. He denies shortness of breath at rest. PHYSICAL EXAMINATION: VITAL SIGNS: Temperature 98.5, pulse 48 to 56, respiratory rate 16, blood pressure 96/49, saturating 97% on 1 liter nasal cannula. INTAKE/OUTPUT: Intake yesterday was 1914. Dialysis removed 1500 cc. Urine output was 200, net positive 200 cc. Weight in the bed scale today is 84.5 kg. GENERAL: Patient is seen awake, alert and oriented x3, in no apparent distress. HEENT: Extraocular muscles are intact. Tongue is moist. Neck is supple. Jugular veins are significantly elevated. HEART: Heart sounds are bradycardic, S1, S2. There is 3+ leg edema bilaterally. ABDOMEN: Soft and nontender to palpation. EXTREMITIES: 3+ edema that comes up to the hip, thigh and abdominal flanks. There is a fistula in the right arm that is patent and in use. SKIN: Shows pallor, warm and dry. NEUROLOGIC: He is oriented x3, at baseline mentation. PSYCHIATRIC: He appears less anxious than yesterday. LABORATORY DATA: White count 8.5, hemoglobin 7.2, platelets 141,000. Sodium 131, potassium 3.8. Transferrin saturation 14%. Urine culture pending. INPATIENT MEDICATIONS: He continues on Entresto 24-26 mg one tablet p.o. daily, Tylenol p.r.n., aspirin 81 mg p.o. daily, Atorvastatin 40 mg p.o. q.h.s., PhosLo 667 mg p.o. with meals, Gabapentin 100 mg p.o. q.h.s., Bumex 2 mg p.o. daily, insulin. He is ordered for Venofer 100 mg I.V. with dialysis for five doses, Flomax 0.4 mg p.o. q.h.s., Advair two puffs b.i.d., Mirapex 0.5 mg p.o. three times a day, MiraLax p.r.n. PROBLEMS: 1. End-stage renal disease on hemodialysis on Wednesday, Wednesday, Wednesday schedule: Patient is markedly volume overloaded, he has not reached his dry weight in a couple of weeks at least. We are dialyzing him [id number] Wednesday, and Wednesday. He is going to need extra dialysis treatments and ultrafiltration to correct his fluid status. He is receiving Heparin free dialysis in view of likely GI bleed. 2. Acute on chronic anemia related to GI bleed, iron deficiency and chronic renal failure: Received 3 units of packed red blood cells yesterday and I am transfusing another unit with hemodialysis today. His iron stores also show iron deficiency. He is ordered for five doses of Venofer. We will restart Aranesp once fluid status improves a little bit more. He is on Protonix. His Coumadin is held. GI is seeing him and he is for likely upper and lower scopes. 3. Decompensated systolic congestive heart failure: No recent echo the past year and a half. He is in significant fluid overload. Continue aggressive hemodialysis with fluid removal as tolerated by hemodynamics. Continue oral fluid restriction to 1500 cc daily. 4. Hypervolemic hyponatremia: It is due to decompensated heart failure, fluid overload and end-stage kidney disease. It will improve with correction in his fluid status. 5. History of DVT: His Coumadin anticoagulation is held in view of GI bleed and IRN is 2.4. 6. GI prophylaxis: The patient has not done any GI prophylaxis and here with GI bleed. I am starting Protonix.
[2020-10-03] MEDS: GABAPENTIN 100 MG CAP PO SCH (21:13)
[2020-10-03] MEDS: ATORVASTATIN 20 MG TAB PO SCH (21:13)
[2020-10-03] MEDS: ACETAMINOPHEN 500 MG TAB PO PRN (21:13)
[2020-10-03] MEDS: TAMSULOSIN 0.4 MG CAP PO SCH (21:13)
[2020-10-03] MEDS: PANTOPRAZOLE 40MG VIAL (C9113 PER 1) IV SCH (21:14)
[2020-10-03] MEDS: MIRALAX *UNIT DOSE* 17GM PACKET PO SCH (21:15)
[2020-10-04] VITALS (9 sets, daily range): BP systolic 120–163; BP diastolic 58–71; O2SAT 95–99
[2020-10-04] MEDS: MIRALAX *UNIT DOSE* 17GM PACKET PO SCH ×2 (05:08→20:30)
[2020-10-04 05:54] LABS: HEMATOCRIT 27.7 % (42.0-52.0); HEMOGLOBIN 8.8 g/dl (13.5-17.5); MEAN CORPUSCULAR HEMOGLOBIN 30.8 pg (27.0-33.0); MEAN CORPUSCULAR HGB CONC 31.8 g/dl (32.0-36.5); MEAN CORPUSCULAR VOLUME 96.9 fl (80.0-96.0); PLATELET COUNT, AUTOMATED 179 10^3/uL (150-450); RED BLOOD COUNT 2.86 10^6/uL (4.30-6.10); WHITE BLOOD COUNT 8.7 10^3/uL (4.0-10.0)
[2020-10-04] MEDS ORDERED: BISACODYL 5 MG TAB PO ONE (06:00)
[2020-10-04 06:05] LABS: INR 2.3; PROTHROMBIN TIME 25.8 SECONDS (12.5-14.3)
[2020-10-04 06:14] LABS: CALCIUM LEVEL 7.5 MG/DL (8.8-10.2); CREATININE FOR GFR 3.16 MG/DL (0.70-1.30); GLOMERULAR FILTRATION RATE 20.9 (>49); POTASSIUM SERUM 4.2 MEQ/L (3.5-5.1)
[2020-10-04] MEDS ORDERED: SODIUM CHLORIDE 0.9% 1000ML IV PRN (07:00)
[2020-10-04] MEDS: HumaLOG INSULIN (NovoLOG) PER UNIT SC SCH ×4 (07:30→20:41)
[2020-10-04] MEDS: CALCIUM ACETATE 667MG GELCAP PO SCH ×3 (07:50→18:00)
[2020-10-04] MEDS: IRON SUCROSE 100MG 5ML VIAL (J1756 PER 1MG) IV SCH (08:25)
[2020-10-04] MEDS ORDERED: [UNRECOGNIZED DRUG - REMARK] TD SCH (09:00)
[2020-10-04] MEDS ORDERED: ENTER DRUG NAME HERE (PATIENT'S OWN MED) TD ONE (09:00)
[2020-10-04] MEDS ORDERED: PANTOPRAZOLE 40MG TAB (PROTONIX) PO SCH (09:00)
--- NOTE | 2020-10-04 10:07 | IPNPDOC ---
Text Note Date of Service The patient was seen on 10/04/20. NOTE SUBJECTIVE: The patient was seen and examined at bedside. He says he is feeling better today regarding his weakness. He denies nausea, vomiting or abdominal pain. He states he makes a small amount of urine and he denies any urinary symptoms including dysuria, urinary frequency, or urgency. OBJECTIVE: GENERAL: patient is a cooperative, pleasant man who appears his stated age. Alert, comfortable and in no acute distress. GENERAL: Alert, comfortable, in no acute distress HEENT: Normocephalic, atraumatic, EOMI, moist mucous membranes NECK: Supple, trachea midline CARDIOVASCULAR: Regular rate and rhythm, normal S1 and S2. No murmurs, rubs, or gallops RESPIRATORY: Clear to auscultation bilaterally with equal air entry bilaterally. No wheezing, rhonchi, or rales. ABDOMEN: Soft, nondistended, bowel sounds present. Mild diffuse tenderness. EXTREMITIES: Bilateral 3+ edema extending up to the sacrum. Fistula present in the right arm with bruit. NEUROLOGIC: Alert and oriented x3 to person, place and time. No focal deficits appreciated PSYCHIATRIC: Mood and affect appropriate ASSESSMENT/PLAN: 70 year old male who presented with several days of worsening weakness, found to be anemic and fluid overloaded admitted for urgent hemodialysis, blood transfusion, and further work up of anemia # Acute on chronic anemia - s/p 4 units PRBCs. Hg stable at 8.8 today - possibly secondary to GI bleed, Dr. Lange consulted appreciate recommendations - protonix IV 40mg BID. plan for EGD/colonoscopy today - monitor H/H and transfuse as indicated - Nephrology has also added IV iron infusions # Asymptomatic bacteremia - urine culture positive for Klebsiella pneumoniae - pt denies urinary symptoms now or prior to admission - no antibiotics as this is only asymptomatic bacteremia # ESRD on HD - states he attends HD four days a week, MWFSat - HD per nephrology while inpatient # Hx DVT - on warfarin, INR 2.3 - INR has returned to therapeutic range of 2.0-3.0 - pt takes 8mg warfarin daily at home. will start 5mg daily tonight and monitor INR daily # Diabetes mellitus - consistent carb diet. FSBS ACHS with SSI while inpatient - hypoglycemic protocol # CHF - continue home entresto and bumex #COPD -continue home inhalers #RLS - continue home gabapentin and mirapex #GORDON - continue home CPAP while inpatient #HLD - continue home statin #BPH - continue home flomax DVT prophylaxis: on full anticoagulation with warfarin Disposition: pending clinical improvement, EGD/colonoscopy VS,Fishbone, I+O VS, Fishbone, I+O Laboratory Tests 10/03/20 17:00 10/04/20 05:20 Vital Signs Date Time Temp Pulse Resp B/P (MAP) Pulse Ox O2 Delivery O2 Flow Rate FiO2 10/04/20 06:00 60 98 Room Air 10/04/20 04:00 97.3 22 122/58 (79) 10/03/20 18:10 1.0 10/02/20 19:00 99 I&O- Last 24 Hours up to 6 AM 10/04/20 06:00 Intake Total 3030 ml Output Total 2750 ml Balance 280 ml GME ATTESTATION GME ATTESTATION My faculty preceptor for this patient encounter was physically present during the encounter and was fully available. All aspects of the patient interview, examination, medical decision making process, and medical care plan development were reviewed and approved by the faculty preceptor. The faculty preceptor is aware and concurs with the plan as stated in the body of this note and will attest to such by his/her cosignature. ATTENDING NOTE Attending note Patient seen and examined independently. Agree with student's note. KRYSTLE WHITE Oct 04, 2020 10:07 KELSI FORD D.O. Oct 04, 2020 14:40 AARON TURNER MD Oct 05, 2020 18:03
[2020-10-04] MEDS ORDERED: LIDOCAINE 1% SDV 5ML VIAL SQ ONE (11:15)
[2020-10-04] MEDS: BUMETANIDE 1 MG TAB PO SCH (11:53)
[2020-10-04] MEDS: ASPIRIN 81 MG CHEW TABLET PO SCH (11:53)
[2020-10-04] MEDS: PANTOPRAZOLE 40MG VIAL (C9113 PER 1) IV SCH ×2 (11:53→20:30)
[2020-10-04] MEDS: PRAMIPEXOLE 0.25 MG TAB PO SCH ×3 (11:53→20:29)
[2020-10-04] MEDS: ENTRESTO 24-26MG TABLET (SACUBITRIL/VALSARTAN) PO SCH (11:53)
[2020-10-04] MEDS: OMEGA-3 1000MG CAPSULE PO SCH ×3 (11:53→20:29)
[2020-10-04] MEDS: ADVAIR HFA 230/21MCG INHALER INH SCH ×2 (12:43→19:44)
[2020-10-04 13:08] LABS: CALCIUM LEVEL 8.4 MG/DL (8.8-10.2); CREATININE FOR GFR 1.71 MG/DL (0.70-1.30); GLOMERULAR FILTRATION RATE 42.5 (>49); POTASSIUM SERUM 3.7 MEQ/L (3.5-5.1)
[2020-10-04] MEDS ORDERED: propofoL 500 MG/50 ML VIAL As Ordered ONE (14:59)
[2020-10-04] MEDS ORDERED: LIDOCAINE 2% 100MG/5ML SDV (FOR ANES.) As Ordered ONE (14:59)
[2020-10-04] MEDS ORDERED: fentaNYL 100 MCG/2 ML INJECTION (J3010) As Ordered ONE (15:00)
--- NOTE | 2020-10-04 15:00 | ROOR ---
Patient Name: Nile Castillo Procedure Date: 10/04/2020 2:18 PM Date of : 1950 Age: 70 Room: [facility] Gender: Male Note Status: Finalized Procedure: Upper GI endoscopy Indications: Acute post hemorrhagic anemia Providers: Philip Lange MD Referring MD: ALBINA PASCAL [facility] ALBINA Wdae Requesting Provider: Medicines: Monitored Anesthesia Care Complications: No immediate complications. Procedure: Pre-Anesthesia Assessment: - Prior to the procedure, a History and Physical was performed, and patient medications and allergies were reviewed. The patient is competent. The risks and benefits of the procedure and the sedation options and risks were discussed with the patient. All questions were answered and informed consent was obtained. Patient identification and proposed procedure were verified by the physician, the nurse and the anesthesiologist in the procedure room. Mental Status Examination: alert and oriented. Airway Examination: normal oropharyngeal airway and neck mobility. Respiratory Examination: clear to auscultation. CV Examination: normal. Prophylactic Antibiotics: The patient does not require prophylactic antibiotics. Prior Anticoagulants: The patient has taken Coumadin (warfarin), last dose was 1 day prior to procedure. ASA Grade Assessment: III - A patient with severe systemic disease. After reviewing the risks and benefits, the patient was deemed in satisfactory condition to undergo the procedure. The anesthesia plan was to use monitored anesthesia care (MAC). Immediately prior to administration of medications, the patient was re-assessed for adequacy to receive sedatives. The heart rate, respiratory rate, oxygen saturations, blood pressure, adequacy of pulmonary ventilation, and response to care were monitored throughout the procedure. The physical status of the patient was re-assessed after the procedure. The Endoscope was introduced through the mouth, and advanced to the second part of duodenum. The upper GI endoscopy was accomplished without difficulty. The patient tolerated the procedure well. Findings: A medium-sized hiatal hernia was present. Scattered mild inflammation characterized by erythema and granularity was found in the gastric antrum. Biopsies were taken with a cold forceps for Helicobacter pylori testing. Verification of patient identification for the specimen was done by the physician and nurse using the patient's name, date and medical record number. Three non-obstructing non-bleeding cratered and linear duodenal ulcers with a nonbleeding visible vessel (Adrien Class IIa) were found in the duodenal bulb and in the second portion of the duodenum. The largest lesion was 15 mm in largest dimension. For hemostasis, two hemostatic clips were successfully placed. There was no bleeding at the end of the procedure. Diffuse mucosal flattening was found in the duodenal bulb and in the second portion of the duodenum. Impression: - Medium-sized hiatal hernia. - Gastritis. Biopsied. - Non-obstructing non-bleeding duodenal ulcers with a nonbleeding visible vessel (Adrien Class IIa). Clips were placed. - Flattened mucosa was found in the duodenum, suspicious for celiac disease. Recommendation: - Patient has a contact number available for emergencies. The signs and symptoms of potential delayed complications were discussed with the patient. Return to normal activities tomorrow. Written discharge instructions were provided to the patient. - Clear liquid diet for 1 day, then advance as tolerated to low sodium diet. - No ibuprofen, naproxen, or other non-steroidal anti-inflammatory drugs. - Continue present medications. - Resume Coumadin (warfarin) at prior dose tomorrow. Refer to primary physician for further adjustment of therapy. - Use Protonix (pantoprazole) 40 mg IV BID for 2 days. - After the above 48 hours switch to Protonix (pantoprazole) 40 mg PO twice daily - to be taken in morning (1/2 hour before breakfast) and at bedtime ( atleast 3 hours after last meal) for 6 weeks. - Await pathology results. - Perform a serologic workup for celiac disease including: transglutaminase antibody (TTG), serum IgA and antigliadin antibody (AGA). - If Biopsy shows H. pylori will need therapy with antibiotic course.. - Return to GI clinic in [facility] (address [address], [address], [place], [facility]) in 4 -- 6 weeks. Please call GI clinic @ [phone] for apppointment date and time. - Return to primary care physician. Procedure Code(s): --- Professional --- 95228, 59, Esophagogastroduodenoscopy, flexible, transoral; with control of bleeding, any method 16419, Esophagogastroduodenoscopy, flexible, transoral; with biopsy, single or multiple Diagnosis Code(s): --- Professional --- K44.9, Diaphragmatic hernia without obstruction or gangrene K29.70, Gastritis, unspecified, without bleeding K26.4, Chronic or unspecified duodenal ulcer with hemorrhage K31.89, Other diseases of stomach and duodenum D62, Acute posthemorrhagic anemia CPT copyright 2019 [employer]. All rights reserved. The codes documented in this report are preliminary and upon production hardener review may be revised to meet current compliance requirements. Philip Lange MD Philip Lange MD 10/04/2020 2:59:35 PM Electronically signed by Philip Lange MD Number of Addenda: 0 Note Initiated On: 10/04/2020 2:18 PM Estimated Blood Loss: Estimated blood loss: none.
--- NOTE | 2020-10-04 15:06 | ROOR ---
Patient Name: Nile Castillo Procedure Date: 10/04/2020 2:19 PM Date of : 1950 Age: 70 Room: [facility] Gender: Male Note Status: Finalized Procedure: Colonoscopy Indications: Acute post hemorrhagic anemia Providers: Philip Lange MD Referring MD: ALBINA PASCAL Yessica [facility] ALBINA Wade Requesting Provider: Medicines: Monitored Anesthesia Care Complications: No immediate complications. Procedure: Pre-Anesthesia Assessment: - Prior to the procedure, a History and Physical was performed, and patient medications and allergies were reviewed. The patient is competent. The risks and benefits of the procedure and the sedation options and risks were discussed with the patient. All questions were answered and informed consent was obtained. Patient identification and proposed procedure were verified by the physician, the nurse and the anesthesiologist in the procedure room. Mental Status Examination: alert and oriented. Airway Examination: normal oropharyngeal airway and neck mobility. Respiratory Examination: clear to auscultation. CV Examination: normal. Prophylactic Antibiotics: The patient does not require prophylactic antibiotics. Prior Anticoagulants: The patient has taken Coumadin (warfarin), last dose was 1 day prior to procedure. ASA Grade Assessment: II - A patient with mild systemic disease. After reviewing the risks and benefits, the patient was deemed in satisfactory condition to undergo the procedure. The anesthesia plan was to use monitored anesthesia care (MAC). Immediately prior to administration of medications, the patient was re-assessed for adequacy to receive sedatives. The heart rate, respiratory rate, oxygen saturations, blood pressure, adequacy of pulmonary ventilation, and response to care were monitored throughout the procedure. The physical status of the patient was re-assessed after the procedure. The Colonoscope was introduced through the anus with the intention of advancing to the cecum. The scope was advanced to the transverse colon before the procedure was aborted. Medications were given. The colonoscopy was performed without difficulty. The patient tolerated the procedure well. The quality of the bowel preparation was poor. The rectum was photographed. Findings: The perianal and digital rectal examinations were normal. A large amount of semi-solid solid stool was found from sigmoid to transverse colon, precluding visualization. Impression: - Preparation of the colon was poor. - Stool from sigmoid to transverse colon. - No specimens collected. Recommendation: - Patient has a contact number available for emergencies. The signs and symptoms of potential delayed complications were discussed with the patient. Return to normal activities tomorrow. Written discharge instructions were provided to the patient. - Clear liquid diet for 1 day, then advance as tolerated to high fiber diet and low sodium diet. - No ibuprofen, naproxen, or other non-steroidal anti-inflammatory drugs. - Follow the recommendations as per the other procedure note. - Repeat colonoscopy at next available appointment (within 3 months) because the bowel preparation was poor and for screening purposes. - Return to GI clinic in [facility] (address [address], [address], [place] [address]) in 4 -- 6 weeks. Please call GI clinic @ [phone] for apppointment date and time. - Return to primary care physician. Procedure Code(s): --- Professional --- 58874, 53, Colonoscopy, flexible; diagnostic, including collection of specimen(s) by brushing or washing, when performed (separate procedure) Diagnosis Code(s): --- Professional --- D62, Acute posthemorrhagic anemia CPT copyright 2019 [employer]. All rights reserved. The codes documented in this report are preliminary and upon medical biller/coder review may be revised to meet current compliance requirements. Philip Lange MD Philip Lange MD 10/04/2020 3:05:24 PM Electronically signed by Philip Lange MD Number of Addenda: 0 Note Initiated On: 10/04/2020 2:19 PM Estimated Blood Loss: Estimated blood loss was minimal.
[2020-10-04 16:12] LABS: HEMATOCRIT 24.5 % (42.0-52.0); HEMOGLOBIN 7.9 g/dl (13.5-17.5)
[2020-10-04] MEDS ORDERED: WARFARIN SOD 5MG TAB PO SCH ×2 (17:00→21:00)
[2020-10-04] MEDS: TAMSULOSIN 0.4 MG CAP PO SCH (20:29)
[2020-10-04] MEDS: GABAPENTIN 100 MG CAP PO SCH (20:29)
[2020-10-04] MEDS: ATORVASTATIN 20 MG TAB PO SCH (20:29)
[2020-10-05] VITALS: BP 130/62; O2SAT 97
[2020-10-05] MEDS: NORCO, ANEXSIA 5/325MG TABLET (HYDROcodone/ACETAMINOPHEN) PO PRN ×3 (00:07→20:22)
[2020-10-05 04:00] VITALS: BP 133/60
[2020-10-05 04:40] LABS: HEMATOCRIT 25.9 % (42.0-52.0); HEMOGLOBIN 8.3 g/dl (13.5-17.5); MEAN CORPUSCULAR VOLUME 96.6 fl (80.0-96.0); PLATELET COUNT, AUTOMATED 165 10^3/uL (150-450); RED BLOOD COUNT 2.68 10^6/uL (4.30-6.10); WHITE BLOOD COUNT 5.7 10^3/uL (4.0-10.0)
[2020-10-05 04:51] LABS: INR 2.04; PROTHROMBIN TIME 23.5 SECONDS (12.5-14.3)
[2020-10-05 05:15] LABS: CREATININE FOR GFR 3.03 MG/DL (0.70-1.30); GLOMERULAR FILTRATION RATE 21.9 (>49); POTASSIUM SERUM 3.6 MEQ/L (3.5-5.1)
[2020-10-05] MEDS: MIRALAX *UNIT DOSE* 17GM PACKET PO SCH ×3 (06:00→20:27)
[2020-10-05] MEDS: ADVAIR HFA 230/21MCG INHALER INH SCH ×2 (07:37→21:37)
[2020-10-05 07:48] VITALS: BP 129/63
[2020-10-05] MEDS: OMEGA-3 1000MG CAPSULE PO SCH ×3 (08:44→20:21)
[2020-10-05] MEDS: ASPIRIN 81 MG CHEW TABLET PO SCH (08:44)
[2020-10-05] MEDS: HumaLOG INSULIN (NovoLOG) PER UNIT SC SCH ×4 (08:44→20:24)
[2020-10-05] MEDS: PANTOPRAZOLE 40MG VIAL (C9113 PER 1) IV SCH ×2 (08:44→20:20)
[2020-10-05] MEDS: CALCIUM ACETATE 667MG GELCAP PO SCH ×3 (08:45→17:32)
[2020-10-05] MEDS: PRAMIPEXOLE 0.25 MG TAB PO SCH ×3 (08:45→20:21)
[2020-10-05] MEDS: ENTRESTO 24-26MG TABLET (SACUBITRIL/VALSARTAN) PO SCH (08:45)
[2020-10-05] MEDS: BUMETANIDE 1 MG TAB PO SCH (08:45)
--- NOTE | 2020-10-05 09:25 | IPNPDOC ---
Text Note Date of Service The patient was seen on 10/05/20. NOTE SUBJECTIVE: Patient was seen and examined this morning at bedside. He is frustrated that he is still in the hospital and is anxious to go home. He is tolerating clear liquid diet. He does report mild abdominal discomfort in the LUQ. No nausea/vomiting. No diarrhea. OBJECTIVE: VITAL SIGNS: See below GENERAL: Alert, comfortable, in no acute distress HEENT: Normocephalic, atraumatic, EOMI, moist mucous membranes CARDIOVASCULAR: Regular rate and rhythm, normal S1 and S2. No murmurs, rubs, or gallops RESPIRATORY: Clear to auscultation bilaterally with equal air entry bilaterally. No wheezing, rhonchi, or rales. ABDOMEN: Soft, nondistended, bowel sounds present. Mildly tender to palpation in the LUQ. No rebound, rigidity, or guarding. EXTREMITIES: Bilateral 2+ edema extending up to the thighs. Fistula present in the right arm. NEUROLOGIC: Alert and oriented x3 to person, place and time. No focal deficits appreciated PSYCHIATRIC: Mood and affect appropriate ASSESSMENT/PLAN: 70 year old male who presented with several days of worsening weakness, found to be anemic and fluid overloaded admitted for urgent hemodialysis, blood transfusion, and further work up of anemia # Acute on chronic anemia - s/p 4 units PRBCs - possible secondary to GI bleed, discussed below - monitor H/H and transfuse as indicated - Nephrology has also added IV iron infusions # GI bleed - Dr. Lange consulted appreciate recommendations - EGD and colonoscopy revealed gastritis and duodenal ulcers without active bleeding - continue protonix IV BID for 48 hours post procedure and 1 day clear liquid diet per GI - will advance to high fiber diet with consistent carb and 2 gram sodium restriction - PPI can be switched to PO after AM dose on 10/06 - f/u GI outpatient for further management # ESRD on HD - states he attends HD four days a week, MWFSat - HD per nephrology while inpatient # Asymptomatic bacteremia - urine culture positive for Klebsiella pneumoniae - pt denies urinary symptoms now or prior to admission - no antibiotics as this is only asymptomatic bacteremia # Hx DVT - on warfarin, goal therapeutic range of 2.0-3.0 - warfarin held yesterday post EGD/colonoscopy - pt takes 8mg warfarin daily at home. will start 5mg daily tonight and monitor INR daily # Diabetes mellitus - consistent carb diet. FSBS ACHS with SSI while inpatient - hypoglycemic protocol # CHF - continue home entresto and bumex #COPD -continue home inhalers #RLS - continue home gabapentin and mirapex #GORDON - continue home CPAP while inpatient #HLD - continue home statin #BPH - continue home flomax DVT prophylaxis: on full anticoagulation with warfarin Disposition: pending advancement of diet, transition to PO PPI, and PT eval Attending note: Patient seen and examined independently. Agree with resident's note. VS,Fishbone, I+O VS, Fishbone, I+O Laboratory Tests 10/04/20 12:31 10/04/20 16:00 10/05/20 04:11 Vital Signs Date Time Temp Pulse Resp B/P (MAP) Pulse Ox O2 Delivery O2 Flow Rate FiO2 10/05/20 07:48 98.1 63 18 129/63 (85) 97 Room Air 10/03/20 18:10 1.0 10/02/20 19:00 99 I&O- Last 24 Hours up to 6 AM 10/05/20 06:00 Intake Total 1010 ml Output Total 3200 ml Balance -2190 ml KELSI FORD D.O. Oct 05, 2020 09:25 AARON TURNER MD Oct 05, 2020 18:08
--- NOTE | 2020-10-05 11:44 | IPN ---
PROGRESS NOTE DATE: 10/05/2020 Nile is seen this morning in the hemodialysis unit receiving his maintenance treatment. He denies any acute events. Specifically denies shortness of breath, nausea, or vomiting. He is pending endoscopy and colonoscopy later in the evening. VITAL SIGNS: Temperature 98.1, pulse 66, respiratory rate 18-20, blood pressure 122/58, saturating 97% on room air. Intake yesterday was 2430. Dialysis removed 2500 mL yesterday, and we removed 3000 mL today. Weight in the bed scale today is not recorded. GENERAL: Patient is seen in the hemodialysis unit awake, alert, oriented, receiving his treatment in no apparent distress. Extraocular muscles are intact. Tongue is moist. Neck is supple. Jugular veins are elevated. Heart sounds are bradycardic, S1, S2. There is 3+ leg edema bilaterally. ABDOMEN: Soft and nontender to palpation. EXTREMITIES: Show 3+ edema. Fistula in the right arm that is patent and in use. NEUROLOGIC: He is oriented times three, at baseline mentation. PSYCHIATRIC: He is anxious. LUNGS: Symmetric air entry bilateral. Diminished at the bases. LABORATORY DATA: White count 8.7, hemoglobin 8.8, platelets 179. Sodium 135, potassium 3.7. INPATIENT MEDICATIONS: Reviewed by myself. He received bisacodyl 10 mg by mouth times one. He is on Protonix 40 mg intravenous (IV) twice a day. He received MiraLax. The remainder of medications is unchanged as compared to yesterday. PROBLEMS: 1. End-stage renal disease, on hemodialysis on Wednesday, Wednesday, Wednesday schedule. He is markedly volume overloaded. He has to reached his dry weight in a couple of weeks. He was dialyzed back to back Wednesday, , and Wednesday. He was written for 1500 mL fluid restriction, but chart states that he had oral intake of 2300 mL yesterday. He needs to be on a fluid restriction. He is significantly volume overloaded. We will try to accommodate further extra treatments as the schedule allows. He has been receiving heparin-free dialysis in view gastrointestinal (GI) bleed. 2. Acute on chronic anemia related to GI bleed, iron deficiency anemia, and chronic renal failure. He is status post 4 units of packed red blood cells. He is receiving Venofer with dialysis. He is on Protonix 40 mg twice a day. His Coumadin is held. He is pending endoscopy and colonoscopy for further evaluation. 3. Decompensated systolic congestive heart failure. No recent echocardiogram in the past year and a half; however, given that he is on Entresto, he likely has systolic dysfunction. He is in significant fluid overloaded. He needs to be on a fluid restriction. It is discussed with nursing staff, continue aggressive hemodialysis with fluid removal as tolerated by hemodynamics. There was 3 kg removed today, and we will try to accommodate extra treatments when the schedule allows. 4. Hypervolemic hyponatremia due to decompensated heart failure, fluid overload, and end-stage kidney. It will improve with dialysis and correction of the fluid status.
[2020-10-05 12:17] VITALS: BP 148/62
[2020-10-05] MEDS: IRON SUCROSE 100MG 5ML VIAL (J1756 PER 1MG) IV SCH (14:19)
[2020-10-05 17:15] VITALS: BP 145/79
[2020-10-05] MEDS: WARFARIN SOD 5MG TAB PO SCH (17:33)
[2020-10-05] MEDS: TAMSULOSIN 0.4 MG CAP PO SCH (20:21)
[2020-10-05] MEDS: ATORVASTATIN 20 MG TAB PO SCH (20:21)
[2020-10-05] MEDS: GABAPENTIN 100 MG CAP PO SCH (20:21)
[2020-10-05 22:00] VITALS: BP 142/65
[2020-10-06 06:00] VITALS: BP 134/68
[2020-10-06] MEDS: MIRALAX *UNIT DOSE* 17GM PACKET PO SCH ×2 (06:09→20:11)
[2020-10-06 07:32] LABS: HEMATOCRIT 27.3 % (42.0-52.0); HEMOGLOBIN 8.6 g/dl (13.5-17.5); MEAN CORPUSCULAR HEMOGLOBIN 30.8 pg (27.0-33.0); MEAN CORPUSCULAR HGB CONC 31.5 g/dl (32.0-36.5); MEAN CORPUSCULAR VOLUME 97.8 fl (80.0-96.0); PLATELET COUNT, AUTOMATED 144 10^3/uL (150-450); RED BLOOD COUNT 2.79 10^6/uL (4.30-6.10); WHITE BLOOD COUNT 5.6 10^3/uL (4.0-10.0)
[2020-10-06] MEDS: ADVAIR HFA 230/21MCG INHALER INH SCH ×2 (07:40→20:11)
[2020-10-06 07:50] LABS: INR 1.56
[2020-10-06 08:04] LABS: CALCIUM LEVEL 7.3 MG/DL (8.8-10.2); CREATININE FOR GFR 4.9 MG/DL (0.70-1.30); GLOMERULAR FILTRATION RATE 12.6 (>49); POTASSIUM SERUM 3.8 MEQ/L (3.5-5.1)
[2020-10-06] MEDS: PANTOPRAZOLE 40MG VIAL (C9113 PER 1) IV SCH ×2 (08:45→20:12)
[2020-10-06] MEDS: ENTRESTO 24-26MG TABLET (SACUBITRIL/VALSARTAN) PO SCH (08:46)
[2020-10-06] MEDS: CALCIUM ACETATE 667MG GELCAP PO SCH ×3 (08:46→17:27)
[2020-10-06] MEDS: ASPIRIN 81 MG CHEW TABLET PO SCH (08:46)
[2020-10-06] MEDS: PRAMIPEXOLE 0.25 MG TAB PO SCH ×3 (08:46→20:11)
[2020-10-06] MEDS: BUMETANIDE 1 MG TAB PO SCH (08:46)
[2020-10-06] MEDS: HumaLOG INSULIN (NovoLOG) PER UNIT SC SCH ×4 (08:46→21:00)
[2020-10-06] MEDS: OMEGA-3 1000MG CAPSULE PO SCH ×3 (08:46→20:12)
--- NOTE | 2020-10-06 10:39 | IPNPDOC ---
Text Note Date of Service The patient was seen on 10/06/20. NOTE Subjective: Patient was seen and examined this morning at bedside. No acute overnight events reported. Patient has no new medical complaints this morning. OBJECTIVE: VITAL SIGNS: See below GENERAL: Alert, comfortable, in no acute distress HEENT: Normocephalic, atraumatic, EOMI, moist mucous membranes CARDIOVASCULAR: Regular rate and rhythm, normal S1 and S2. No murmurs, rubs, or gallops RESPIRATORY: Clear to auscultation bilaterally with equal air entry bilaterally. No wheezing, rhonchi, or rales. ABDOMEN: Soft, nondistended, +BS, NT EXTREMITIES: B/L LE edema; Fistula present in the right arm. A/P: 70M who presented with several days of worsening weakness, found to be anemic and fluid overloaded admitted for urgent hemodialysis, blood transfusion, and further work up of anemia # Acute on chronic anemia - s/p 4 units PRBCs - possible secondary to GI bleed, discussed below - monitor H/H and transfuse as indicated - Nephrology has also added IV iron infusions # GI bleed - follow as per GI - assistance appreciated - EGD and colonoscopy revealed gastritis and duodenal ulcers without active bleeding - continue protonix IV BID for 48 hours post procedure and 1 day clear liquid diet per GI - will advance to high fiber diet with consistent carb and 2 gram sodium restriction - transitioning to PO protonix today - f/u GI outpatient for further management # ESRD on HD - states he attends HD four days a week, MWFSat -Follow as per nephrology - assistance appreciated # Asymptomatic bacteriuria - urine culture positive for Klebsiella pneumoniae - pt denies urinary symptoms now or prior to admission # Hx DVT - on warfarin, goal therapeutic range of 2.0-3.0 - warfarin held for EGD/colonoscopy - restarted warfarin as per GI recs # Diabetes mellitus - consistent carb diet. FSBS ACHS with SSI while inpatient - hypoglycemic protocol # CHF - continue home entresto and bumex #COPD -continue home inhalers #RLS - continue home gabapentin and mirapex #GORDON - continue home CPAP while inpatient #HLD - continue home statin #BPH - continue home flomax DVT prophylaxis: on full anticoagulation with warfarin Disposition: pending clinical improvement, anticipate discharge within 24 hours VS,Fishbone, I+O VS, Fishbone, I+O Laboratory Tests 10/06/20 06:52 Vital Signs Date Time Temp Pulse Resp B/P (MAP) Pulse Ox O2 Delivery O2 Flow Rate FiO2 10/06/20 06:00 98.3 74 20 134/68 (90) 97 Room Air 10/03/20 18:10 1.0 10/02/20 19:00 99 I&O- Last 24 Hours up to 6 AM 10/06/20 06:00 Intake Total 1760 ml Output Total 2000 ml Balance -240 ml AARON TURNER MD Oct 06, 2020 10:39
[2020-10-06 14:00] VITALS: BP 135/57
--- NOTE | 2020-10-06 15:51 | IPN ---
PROGRESS NOTE DATE: 10/06/2020 SUBJECTIVE: Mr. Castillo is seen this morning on his bedside. He is sitting at the edge of bed and feels well. He is in good spirits today and wants to go home. He underwent ultrafiltration yesterday and we were able to remove an additional 2 liters of fluid. His dyspnea and leg edema have improved significantly. He is tolerating a regular diet and denies any nauseas or vomiting. PHYSICAL EXAMINATION: Temperature 98.3 degrees Fahrenheit, heart rate 74 per minute and respiratory rate 20 per minute. Blood pressure 134/68 mmHg and oxygen saturation 97% on room air. Head: Atraumatic. Neck: Supple and without jugular venous distention (JVD) or thyroid enlargement. Heart sounds are irregular in rhythm and lungs clear to auscultation. Abdomen: Soft and nontender and bowel sounds are normal. Extremities without any cyanosis or clubbing. Neurologically, he is awake, alert and at his baseline mentation. LABORATORY DATA: Today's lab show white blood cell count 5.6, hemoglobin 8.6 and hematocrit 27.3. Platelets 144. Sodium 132, potassium 3.8, Co2 29, BUN 19 and creatinine 4.9. Glucose 184 and calcium 7.3. PROBLEMS: 1. Acute blood loss anemia. The patient had gastrointestinal bleed and required transfusions. His anemia has been now stable. Upper endoscopy did not show any active bleeding. He is tolerating regular diet well and complete blood count (CBC) will be checked again tomorrow morning. 2. End-stage renal disease. The patient is regularly dialyzed on Wednesday, Wednesday and Wednesday schedule and he gets extra ultrafiltration every Wednesday. His next dialysis is due for tomorrow. I feel that if the patient is ready for discharge from the GI standpoint, then he can be discharged in the morning and go to outpatient dialysis clinic for his regular dialysis. 3. Congestive heart failure. His volume status is well compensated at present and will continue to management with dialysis. No intervention is needed today. The patient will be dialyzed tomorrow. 4. Hyponatremia. The patient has mild hyponatremia, which has been stable and does not need any urgent intervention. DISPOSITION: From a renal standpoint, the patient is ready for discharge and can be discharged to home either today or tomorrow morning and the he can go to outpatient dialysis clinic for his regular treatment.
--- NOTE | 2020-10-06 15:51 | IPN ---
NEPHROLOGY PROGRESS NOTE DATE: 10/05/2020 SUBJECTIVE: Mr. Castillo is seen this morning at his bedside. He is sitting in the chair at the time of my visit. He reports that he walked in the hallway with the help of the physical therapist and did not have any significant problems. He was dialyzed yesterday which he tolerated very well. We were able to remove about 3 liters of fluid. PHYSICAL EXAMINATION: VITAL SIGNS: Temperature is 97.8 degrees Fahrenheit, heart is 68 per minute and respiratory rate 18 per minute. Blood pressure is 129/63 mm of mercury and oxygen saturation 97% on room air. HEENT: Head is atraumatic. NECK: Supple and without any JVD, sitting upright. LUNGS: Clear to auscultation. HEART: Regular. ABDOMEN: Soft and nontender and bowel sounds are normal. EXTREMITIES: Without any cyanosis or clubbing. Lower extremity edema is 2+ and he is wearing his compression stockings. NEUROLOGICALLY: He is awake, alert, and oriented x3. LABORATORY STUDIES: Today's labs show a WBC count of 5.7, hemoglobin 8.3 and hematocrit 25.9, platelets 165. Sodium 134, potassium 3.6, CO2 30, BUN 8 and creatinine 3.0. PROBLEMS: 1. End-stage renal disease - The patient was dialyzed yesterday and he is very well dialyzed. No urgent need for hemodialysis today. 2. Congestive heart failure he has chronically compensated volume status with diastolic and systolic combined congestive heart failure. He also has mitral valve insufficiency. We will try to ultrafiltrate him today for 2 more liters of fluid and see how he does. 3. Acute blood loss anemia his anemia is still significant and he is likely to require further transfusion. CBC will be repeated again tomorrow. 4. GI bleed - The patient had gastric bleeding and still on a liquid diet following his procedure. I will leave it up to GI to decide when to advance his diet.
[2020-10-06] MEDS: WARFARIN SOD 5MG TAB PO SCH (17:28)
[2020-10-06] MEDS: GABAPENTIN 100 MG CAP PO SCH (20:11)
[2020-10-06] MEDS: TAMSULOSIN 0.4 MG CAP PO SCH (20:11)
[2020-10-06] MEDS: ATORVASTATIN 20 MG TAB PO SCH (20:12)
[2020-10-06] MEDS ORDERED: RAMELTEON 8 MG TAB (ROZEREM) PO ONE (21:00)
[2020-10-06 22:00] VITALS: BP 137/75
[2020-10-07] VITALS (10 sets, daily range): BP systolic 118–147; BP diastolic 63–81
[2020-10-07] MEDS: MIRALAX *UNIT DOSE* 17GM PACKET PO SCH (05:41)
[2020-10-07 07:24] LABS: HEMATOCRIT 25.3 % (42.0-52.0); HEMOGLOBIN 8.1 g/dl (13.5-17.5); MEAN CORPUSCULAR HEMOGLOBIN 31.3 pg (27.0-33.0); MEAN CORPUSCULAR VOLUME 97.7 fl (80.0-96.0); PLATELET COUNT, AUTOMATED 142 10^3/uL (150-450); RED BLOOD COUNT 2.59 10^6/uL (4.30-6.10); WHITE BLOOD COUNT 6.8 10^3/uL (4.0-10.0)
[2020-10-07 07:34] LABS: INR 1.26; PROTHROMBIN TIME 16.1 SECONDS (12.5-14.3)
[2020-10-07 07:51] LABS: CALCIUM LEVEL 6.7 MG/DL (8.8-10.2); CREATININE FOR GFR 5.77 MG/DL (0.70-1.30); GLOMERULAR FILTRATION RATE 10.4 (>49); POTASSIUM SERUM 4.5 MEQ/L (3.5-5.1)
[2020-10-07] MEDS: ADVAIR HFA 230/21MCG INHALER INH SCH (08:17)
[2020-10-07] MEDS: HumaLOG INSULIN (NovoLOG) PER UNIT SC SCH ×3 (08:19→17:30)
[2020-10-07] MEDS: PRAMIPEXOLE 0.25 MG TAB PO SCH ×2 (08:20→17:58)
[2020-10-07] MEDS: PANTOPRAZOLE 40MG VIAL (C9113 PER 1) IV SCH (08:20)
[2020-10-07] MEDS: ASPIRIN 81 MG CHEW TABLET PO SCH (08:20)
[2020-10-07] MEDS: CALCIUM ACETATE 667MG GELCAP PO SCH ×3 (08:20→17:58)
[2020-10-07] MEDS: OMEGA-3 1000MG CAPSULE PO SCH ×2 (08:20→17:57)
[2020-10-07] MEDS: ENTRESTO 24-26MG TABLET (SACUBITRIL/VALSARTAN) PO SCH (08:20)
[2020-10-07 09:14] LABS: HEMATOCRIT 24.6 % (42.0-52.0); HEMOGLOBIN 7.7 g/dl (13.5-17.5)
--- NOTE | 2020-10-07 09:42 | IPNPDOC ---
Subjective Date Seen The patient was seen on 10/07/20. Subjective Chief Complaint/HPI Pt was seen at bedside this am. He appears to be anxious to go home. Denies any acute events overnight and has been tolerating dialysis well and had about 3L of fluids removed at his last dialysis and has not required any urgent hemodiaylsis. Denies any lightheadness, CP, sob, fever chills, n/v/d. Pt's H/H has been slowly trending down again from 8.6 --> 8.1 this am. Will repeat another H/H and possibly transfuse another unit. REVIEW OF SYSTEMS: Constitutional: No fevers, chills, malaise, fatigue or unintentional wt changes ENT/Mouth: No Hearing Changes, No Ear Pain, No Nasal Congestion, No Sinus Pain, No Hoarseness, No sore throat, No Rhinorrhea, No Swallowing Difficulty Cardiovascular: Reports some chest pain in center of his chest, off-and-on Respiratory: No Cough, No Wheezing, No Dyspnea Gastrointestinal: No Nausea, No Vomiting, No Diarrhea, No Constipation, No Pain, No Heartburn, No Anorexia, No Dysphagia, No Hematochezia, No Melena Genitourinary: No Dysuria Musculoskeletal: No Arthralgias, No Myalgias, No Joint Swelling, No Joint Stiffness, No Back Pain, No Neck Pain Skin: No Skin Lesions, Some tenderness in bilateral groin at surgical site Neuro: No Weakness, No Numbness, No Paresthesias, No Loss of Consciousness, No Syncope, No Dizziness, No Headache, No Coordination Changes, No Recent Falls Psych: No Anxiety/Panic, No Depression, No Insomnia, No Personality Changes, No Delusions Heme/Lymph: No Bruising, No Bleeding, No Transfusions History, No Lymphadenopathy Endocrine: No Polyuria, No Polydipsia, No Temperature Intolerance PHYSICAL EXAM: VITAL SIGNS: See below GENERAL: Alert, comfortable, in no acute distress HEENT: Normocephalic, atraumatic, EOMI, moist mucous membranes CARDIOVASCULAR: Regular rate and rhythm, normal S1 and S2. No murmurs, rubs, or gallops RESPIRATORY: Clear to auscultation bilaterally with equal air entry bilaterally. No wheezing, rhonchi, or rales. ABDOMEN: Soft, nondistended, bowel sounds present. Mildly tender to palpation in the LUQ. No rebound, rigidity, or guarding. EXTREMITIES: Bilateral 2+ edema extending up to the thighs. Fistula present in the right arm. NEUROLOGIC: Alert and oriented x3 to person, place and time. No focal deficits appreciated PSYCHIATRIC: Mood and affect appropriate Assessment /Plan Assessment This is an elderly 70 y/o gentleman who initially presented to [facility] with several days of worsening weakness and was found to be anemic and fluid overloaded. He was admitted for urgent hemodialysis and was transfused with 5 units of PRBC to stabilize his H/H and underwent and further work up of anemia # Acute on chronic anemia - s/p 4 units PRBCs - possible secondary to GI bleed, discussed below - monitor H/H and transfuse as indicated - Nephrology has also added IV iron infusions # GI bleed - follow as per GI - assistance appreciated - EGD and colonoscopy revealed gastritis and duodenal ulcers without active bleeding - continue protonix IV BID for 48 hours post procedure and 1 day clear liquid diet per GI - will advance to high fiber diet with consistent carb and 2 gram sodium restriction - transitioning to PO protonix today - f/u GI outpatient for further management # ESRD on HD - states he attends HD four days a week, MWFSat -Follow as per nephrology - assistance appreciated # Asymptomatic bacteriuria - urine culture positive for Klebsiella pneumoniae - pt denies urinary symptoms now or prior to admission # Hx DVT - on warfarin, goal therapeutic range of 2.0-3.0 - warfarin held for EGD/colonoscopy - restarted warfarin as per GI recs # Diabetes mellitus - consistent carb diet. FSBS ACHS with SSI while inpatient - hypoglycemic protocol # CHF - continue home entresto and bumex #COPD -continue home inhalers #RLS - continue home gabapentin and mirapex #GORDON - continue home CPAP while inpatient #HLD - continue home statin #BPH - continue home flomax DVT prophylaxis: on full anticoagulation with warfarin Disposition: pending clinical improvement, anticipate discharge within 24 hours Plan/VTE VTE Prophylaxis Ordered?: Yes VS, I&O, 24H, Sanjaybonandrea Vital Signs/I&O Vital Signs Date Time Temp Pulse Resp B/P (MAP) Pulse Ox O2 Delivery O2 Flow Rate FiO2 10/07/20 06:00 98.1 72 18 131/74 (93) 99 Room Air 10/03/20 18:10 1.0 10/02/20 19:00 99 I&O- Last 24 Hours up to 6 AM 10/07/20 05:59 Intake Total 340 ml Balance 340 ml Laboratory Data 24H LABS Laboratory Tests 2 10/06/20 11:51: Bedside Glucose (Misc Panel) 79L 10/06/20 16:47: Bedside Glucose (Misc Panel) 177H 10/06/20 20:13: Bedside Glucose (Misc Panel) 206H 10/07/20 06:50: Nucleated Red Blood Cells % (auto) 0.0, Prothrombin Time 16.1H, Prothromb Time International Ratio 1.26, Anion Gap 8, Glomerular Filtration Rate 10.4L, Calcium Level 6.7L CBC/BMP Laboratory Tests 10/07/20 06:50 10/07/20 09:04 Microbiology Microbiology 10/02/20 Urine Culture - Final, Complete Klebsiella Pneumoniae GME ATTESTATION GME ATTESTATION My faculty preceptor for this patient encounter was physically present during the encounter and was fully available. All aspects of the patient interview, examination, medical decision making process, and medical care plan development were reviewed and approved by the faculty preceptor. The faculty preceptor is aware and concurs with the plan as stated in the body of this note and will attest to such by his/her cosignature. Yadi Belle DO Oct 07, 2020 09:42
[2020-10-07] MEDS: BUMETANIDE 1 MG TAB PO SCH (09:44)
[2020-10-07] MEDS ORDERED: PANT40TA29 PO (10:40)
--- NOTE | 2020-10-07 10:41 | DS.PDOC ---
Discharge Summary General Date of Admission Oct 02, 2020 at 12:28 Date of Discharge 10/07/2020 Attending Physician: AARON TURNER MD Specialist/Consultants Involve: LYNDSEY COLE MD Specialist/Consultants Involve Dr. Matilda Zamora (Nephrology) Discharge Summary PROCEDURES PERFORMED DURING STAY: [None]. ADMITTING DIAGNOSES: 1. weakness and anemia DISCHARGE DIAGNOSES: 1. duodenal ulcers and gastritis COMPLICATIONS/CHIEF COMPLAINT: Anemia,Congestive Heart Failure HISTORY OF PRESENT ILLNESS: 70 year old male who presented with several days of worsening weakness, found to be anemic and fluid overloaded admitted for urgent hemodialysis, blood transfusion, and further work up of anemia HOSPITAL COURSE: 70 year old male who presented with several days of worsening weakness, found to be anemic and fluid overloaded admitted for urgent hemodialysis, blood transfusion, and further work up of anemia. Dr. Ramirez (nephrology) was consulted as patient was in a severely fluid overloaded state. He was subsequently dialyzed (heparin free) in view of severe anemia and probable GI bleed and continued on Aranesp with dialysis. He also received PRBC transfusions due to Hg dropping down to 4.5. His coumadin was held 2/2 to s upratherpautic INR. GI, Dr. Cole was consulted and he performed an Upper endoscopy as well as a colonoscopy. The GI colo showed poor prep of the colon and stool from sigmoid to transverse colon seen and no specimens were able to be collected due to poor bowel prep. The GI endoscopy showed medium sized hernia, and gastritis which was biopsied and sent to pathology, as well as non obstructing non bleeding duodenal ulcers with non bleeding visible vessel ( Adrien Class 2a). Clips were placed during the procedure. Flattened mucosa found in the duodenum that's suspicious for celiac disease. Per GI, his recommendations are as follows: Protonix 40mg PO BID for 60 days, perform serologic workup for celiac disease including TTG, serum igA and AGA (antigliadin ab). Pt is to follow up with GI within 4-6 weeks of hospital discharge (per rec from Dr. Cole) to get all of this worked up per GI and review pathology results from the biopsy. Pt is to undergo another repeat colonoscopy at next available appointment (w/i 3 months) b/c bowel prep was poor and for screening purposes. Pt was transfused another 2 units of blood prior to his discharge to get dialysis outpatient. Patient's was updated on his status. 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 Pt was informed of the new medication added to his current med regimen; he was instr ucted by both GI and hospitalist to take protonix 40mg PO BID for 6 weeks. DISCHARGE MEDICATIONS: Please see below. ALLERGIES: Please see below. PHYSICAL EXAMINATION ON DISCHARGE: VS: SEE BELOW GENERAL: Alert, comfortable, in no acute distress HEENT: Normocephalic, atraumatic, EOMI, moist mucous membranes NECK: Supple, trachea midline CARDIOVASCULAR: Regular rate and rhythm, normal S1 and S2. No murmurs, rubs, or gallops RESPIRATORY: Clear to auscultation bilaterally with equal air entry bilaterally. No wheezing, rhonchi, or rales. ABDOMEN: Soft, nondistended, bowel sounds present. Mild diffuse tenderness. EXTREMITIES: Bilateral 3+ edema extending up to the sacrum. Fistula present in the right arm with bruit. SKIN: [place], warm, dry NEUROLOGIC: Alert and oriented x3 to person, place and time. No focal deficits appreciated PSYCHIATRIC: Mood and affect appropriate LABORATORY DATA: Please see below. IMAGING: Abdomen,Flat\Upright,PA CHEST IMPRESSION: Nonspecific bowel gas pattern. No free intraperitoneal air. There are 2 metallic densities projected over the pelvis inferiorly on the right, possibly artifact from clothing. ACTIVITY: As tolerated DIET: 2G Na diet DISCHARGE PLAN: Transfuse 2 units of PRBC prior to discharge for outpt dialysis DISCHARGE INSTRUCTIONS: 1. Follow up with PCP for post hospitalization follow up within 3-5 days of discharge 2. Follow up with GI for a repeat and screening colo outpt due to poor bowel prep at the next available appt (w.i 3 months) 3. Follow up with GI for endoscopy biopsy results and workup to r/o celiac disease (4-6 weeks followup) 4. Follow up with [employer] within 2 weeks of hospital discharge. 5. Take protonix 40mg PO BID for 6 weeks. ITEMS TO FOLLOWUP ON ON OUTPATIENT: 1. Follow up with PCP for post hospitalization follow up within 3-5 days of discharge 2. Follow up with GI for a repeat and screening colo outpt due to poor bowel prep at the next available appt (w.i 3 months) 3. Follow up with GI for endoscopy biopsy results and workup to r/o celiac disease (4-6 weeks followup) 4. Take protonix 40mg PO BID for 6 weeks. TIME SPENT ON DISCHARGE: Greater than 55 minutes Vital Signs/I&Os Vital Signs Date Time Temp Pulse Resp B/P (MAP) Pulse Ox O2 Delivery O2 Flow Rate FiO2 10/07/20 06:00 98.1 72 18 131/74 (93) 99 Room Air 10/03/20 18:10 1.0 10/02/20 19:00 99 I&O- Last 24 Hours up to 6 AM 10/07/20 05:59 Intake Total 340 ml Balance 340 ml Laboratory Data Labs 24H Laboratory Tests 2 10/06/20 11:51: Bedside Glucose (Misc Panel) 79L 10/06/20 16:47: Bedside Glucose (Misc Panel) 177H 10/06/20 20:13: Bedside Glucose (Misc Panel) 206H 10/07/20 06:50: Nucleated Red Blood Cells % (auto) 0.0, Prothrombin Time 16.1H, Prothromb Time International Ratio 1.26, Anion Gap 8, Glomerular Filtration Rate 10.4L, Calcium Level 6.7L CBC/BMP Laboratory Tests 10/07/20 06:50 10/07/20 09:04 FSBS Laboratory Tests Test 10/06/20 11:51 10/06/20 16:47 10/06/20 20:13 Range/Units Bedside Glucose (Misc Panel) 79 177 206 80-115 MG/DL Microbiology Microbiology 10/02/20 Urine Culture - Final, Complete Klebsiella Pneumoniae Discharge Medications Scheduled Aspirin (Aspirin) 81 Mg Tab.chew, 81 MG PO DAILY, (Reported) Atorvastatin Calcium (Atorvastatin Calcium) 40 Mg Tab, 40 MG PO QPM, (Reported) Bromfenac Sodium (Bromsite) 0.075% 5ML Drops, 1 DROP OD BID, (Reported) DUE TO STOP ON 10/04/20 Bumetanide (Bumetanide) 2 Mg Tablet, 2 MG PO DAILY, (Reported) Buprenorphine (Butrans) 20 Mcg/Hr Dis, 20 MCG TD QWEEK, (Reported) APPLIES ON FRIDAYS Calcitriol (Calcitriol) 0.25 Mcg Cap, 0.25 MCG PO 3XW, (Reported) RECEIVES AT DIALYSIS WED, WED, WED Calcium Acetate (Calcium Acetate) 667 Mg Capsule, 667 MG PO WM, (Reported) Clonazepam (Clonazepam) 0.5 Mg Tab.rapdis, 0.5 MG PO BID, (Reported) 1100, 2300 Denosumab Injection (Prolia) 60 Mg/1 Ml Syringe, 60 MG SC ASDIRECTED, (Reported) EVERY 6 MONTHS Donepezil HCl (Donepezil HCl) 10 Mg Tablet, 10 MG PO DAILY, (Reported) Epoetin Lopez (Procrit) 20,000 Unit/Ml Inj, 20,000 UNIT INJ QMONTH, (Reported) Ergocalciferol (Vitamin D2) (Vitamin D2) 50,000 Units Cap, 50,000 UNITS PO QWEEK, (Reported) MONDAYS Fluticasone Propion/Salmeterol (Advair Hfa 230-21 Mcg Inhaler) 1 Aer Aer, 2 PUFF INH BID, (Reported) Gabapentin (Gabapentin) 100 Mg Capsule, 100 MG PO QHS, (Reported) Insulin Glargine (Lantus) 1 Units/0.01 Ml Susp, 8 UNITS SC QAM, (Reported) Insulin Glargine (Lantus) 1 Units/0.01 Ml Susp, 5 UNITS SC QHS, (Reported) Insulin Lispro (Humalog Kwikpen U-100) 100 Unit/1 Ml Insuln.pen, 7 UNITS SC BID, (Reported) BREAKFAST AND DINNER Insulin Lispro (Humalog Kwikpen U-100) 100 Unit/1 Ml Insuln.pen, 5 UNITS SC DAILY, (Reported) LUNCH Lidocaine/Prilocaine (Lidocaine-Prilocaine Cream) 2.5%/2.5% Cream..g., 1 DOSE TOP 3XW, (Reported) APPLY TO PORT PRIOR TO DIALYSIS Loteprednol Etabonate (Inveltys) 1% 2.8ML Drops.susp, 1 DROP OD BID, (Reported) DUE TO STOP ON 10/04/20 [place]-3/Dha/Epa/Fish Oil (Fish Oil 1,000 mg Softgel) 1 Each Capsule, 1,000 MG PO TID, (Reported) Pantoprazole Sodium (Pantoprazole Sodium) 40 Mg Tablet.dr, 40 MG PO BID Pramipexole Di-HCl (Mirapex) 0.5 Mg Tablet, 0.5 MG PO TID, (Reported) 1100, 1400, 2300 Sacubitril/Valsartan (Entresto 24 mg-26 mg Tablet) 1 Each Tablet, 1 TAB PO DAILY, (Reported) Sevelamer Carbonate (Renvela Oral Suspension) 0.8 Gm Powd.pack, 0.8 GM PO WM, (Reported) MIX WITH WATER AND DRINK Tamsulosin HCl (Flomax) 0.4 Mg Cap, 0.4 MG PO QHS, (Reported) Warfarin Sodium (Warfarin Sodium) 5 Mg Tablet, 5 MG PO QPM, (Reported) TAKE WITH THREE 1 MG TABS FOR 8MG TOTAL Warfarin Sodium (Warfarin Sodium) 1 Mg Tablet, 3 MG PO QPM, (Reported) TAKE WITH 5MG TAB FOR 8MG TOTAL Scheduled PRN Acetaminophen (Acetaminophen) 500 Mg Tab, 1,000 MG PO Q6H PRN for PAIN, (Reported) Albuterol Sulf (Albuterol Sulfate) 2.5 Mg/3 Ml Nebu, 2.5 MG INH Q4H PRN for SOB/WHEEZING, (Reported) Albuterol Sulfate (Proair Hfa) 108 Mcg/Act Aer, 2 PUFF INH Q4H PRN for SOB/WHEEZING, (Reported) Azelastine HCl (Azelastine HCl) 0.1% [place].pump, 2 SPRAY NARES DAILY PRN for RUNNY NOSE, (Reported) Betamethasone Dipropionate (Betamethasone Dipropionate) 0.05% Cream..g., 1 DOSE TOP DAILY PRN for REDNESS/IRRITATION, (Reported) APPLY TO ARMS Fluticasone Propionate (Fluticasone Propionate) 50 Mcg/Act Spr, 2 SPRAY NARES DAILY PRN for CONGESTION, (Reported) Glucagon,Human Recombinant (Glucagon Emergency Kit) 1 Mg Kit, 1 MG INJ ASDIRECTED PRN for LOW BLOOD SUGAR, (Reported) Hydrocodone/Acetaminophen (Hydrocodone-Acetamin 5-325 mg) 1 Tab Tab, 1 TAB PO Q6H PRN for PAIN, (Reported) Nitroglycerin (Nitroglycerin) 0.4 Mg Tab.subl, 0.4 MG SL NITRO PRN for CHEST PAIN, (Reported) Polyethylene Glycol 3350 (Miralax) 1 Pow Pow, 17 GM PO TID PRN for CONSTIPATION, (Reported) Triamcinolone Acetonide (Triamcinolone Acetonide) 60 Ml Lotion, 1 DOSE TOP BID PRN for PRURITIS, (Reported) Allergies Coded Allergies: bacitracin (Verified Allergy, Severe, FACIAL SWELLING, 09/26/20) carbamazepine (Verified Allergy, Severe, ANAPHYLAXIS, 09/26/20) neomycin (Verified Allergy, Severe, FACIAL SWELLING, 09/26/20) phenobarbital (Verified Allergy, Severe, ANAPHYLAXIS, 09/26/20) phenytoin (Verified Allergy, Severe, ANAPHYLAXIS, 09/26/20) polymyxin B (Verified Allergy, Severe, FACIAL SWELLING, 09/26/20) Penicillins (Verified Allergy, Intermediate, ITCHING, 09/26/20) latex (Verified Allergy, Intermediate, SEVERE RASH AND HIVES, 09/26/20) lisinopril (Verified Allergy, Intermediate, RASH, 08/29/20) meperidine (Verified Allergy, Intermediate, ITCHING, 08/29/20) metformin (Verified Allergy, Mild, RASH, 08/29/20) Aminoglycosides (Verified Allergy, Unknown, 08/29/20) NSAIDS (Non-Steroidal Anti-Inflamma (Verified Adverse Reaction, Intermediate, KIDNEY DISEASE, 09/26/20) capsaicin (Verified Adverse Reaction, Intermediate, EXCESSIVE BURNING, 08/29/20) dapsone (Verified Adverse Reaction, Intermediate, ANEMIA, 08/29/20) levofloxacin (Verified Adverse Reaction, Intermediate, HEADACHE, 08/29/20) pioglitazone (Verified Adverse Reaction, Intermediate, EDEMA, 08/29/20) ropinirole (Verified Adverse Reaction, Intermediate, ELEVATED LIVER ENZYMES, 08/29/20) rosuvastatin (Verified Adverse Reaction, Mild, HEADACHE, 09/26/20) Yadi Belle DO Oct 07, 2020 10:41
--- NOTE | 2020-10-07 13:11 | IPN ---
PROGRESS NOTE DATE: 10/07/2020 SUBJECTIVE: Mr. Castillo is seen this morning on his bedside. He is feeling well and sitting at the edge of bed this morning. Yesterday, we had made a plan to get him discharged this morning so he can go to outpatient dialysis clinic. However, this morning labs showed a drop in his hemoglobin down to 8.1 and hematocrit 25.3. His hemoglobin and hematocrit were repeated and the repeat one came back as 7.7 and 24.6. No plan for discharge; it is canceled and we plan to dialyze him here in the hospital and transfuse 2 units of packed red blood cells (PRBCs). The patient reports that he has been able to ambulate without any problems. PHYSICAL EXAMINATION: Temperature is 98.1 degrees Fahrenheit, heart is 72 per minute and respiratory rate 18 per minute. Blood pressure 130/74 mmHg and oxygen saturation 99% on room air. His head is atraumatic. Neck supple and without jugular venous distention (JVD) sitting upright. Lung sounds clear to auscultation and heart sounds are irregular in rhythm. Abdomen soft and nontender and bowel sounds are normal. Extremities without any cyanosis or clubbing. Neurologically, he is awake, alert and oriented times 3. LABORATORY: Today's lab shows sodium 129, potassium 4.5, Co2 24, BUN 28 and creatinine 5.77. Glucose is 183 and calcium 6.7. Hemoglobin is down to 7.7 and hematocrit 24.6. Platelets are 142 this morning. PROBLEMS: 1. Gastrointestinal bleed with symptomatic anemia. The patient has further drop in his hemoglobin and hematocrit and we place to transfuse 2 units of packed red blood cells (PRBCs) today. Hospitalist has discussed with the gastroenterology and no further intervention is planned at this time. 2. End-stage renal disease. The patient is due for dialysis today and he will be dialyzed here in the hospital this afternoon. He will be transfused 2 units of packed RBCs during dialysis. 3. Hyponatremia. This is related to end-stage renal disease and congestive heart failure. This will be corrected with dialysis and no other intervention is needed. 4. Hypokalemia, unexpected but related to end-stage renal disease. This will also improve with dialysis today. The patient will be dialyzed with high calcium bath. 5. Congestive heart failure. Volume status is reasonably well compensated and we will plan to remove 2.5 liters of fluid with dialysis today. DISPOSITION: The patient should be re-evaluated after dialysis and transfusion; and if he is deemed stable for discharge, then he can probably be discharged today or tomorrow morning.
[2020-10-07] MEDS: IRON SUCROSE 100MG 5ML VIAL (J1756 PER 1MG) IV SCH (16:18)
[2020-10-07] MEDS: WARFARIN SOD 5MG TAB PO SCH (17:57)
== END 2020-10-07 18:25 | disposition home or self-care (01) | DRG 377 ==
LOC: M ED 09:59 → EDBD 09:59 → M ED INP 12:28 → ENRESERV 14:01 → M ICU 14:43 → M PCU 10-03 20:34 → M MS5PR 10-05 13:55
PROVIDERS: ADMIT Internal Medicine; ATTEND Internal Medicine
PROC: 5A1D70Z Performance of Urinary Filtration, Intermittent, Less than 6 Hours Per Day (ICD-10-PCS; 2020-10-02)
PROC: 30233N1 Transfusion of Nonautologous Red Blood Cells into Peripheral Vein, Percutaneous Approach (ICD-10-PCS; 2020-10-02)
PROC: 0DB78ZX Excision of Stomach, Pylorus, Via Natural or Artificial Opening Endoscopic, Diagnostic (ICD-10-PCS; 2020-10-04)
PROC: 0DJD8ZZ Inspection of Lower Intestinal Tract, Via Natural or Artificial Opening Endoscopic (ICD-10-PCS; 2020-10-04)
PROC: 0W3P8ZZ Control Bleeding in Gastrointestinal Tract, Via Natural or Artificial Opening Endoscopic (ICD-10-PCS; principal; 2020-10-04 13:35)
DX: K26.4 Chronic or unspecified duodenal ulcer with hemorrhage (principal); N18.6 End stage renal disease; I50.23 Acute on chronic systolic (congestive) heart failure; D62 Acute posthemorrhagic anemia; I13.2 Hypertensive heart and chronic kidney disease with heart failure and with stage 5 chronic kidney disease, or end stage renal disease; N25.81 Secondary hyperparathyroidism of renal origin; E87.1 Hypo-osmolality and hyponatremia; I87.2 Venous insufficiency (chronic) (peripheral); E11.42 Type 2 diabetes mellitus with diabetic polyneuropathy; E78.5 Hyperlipidemia, unspecified; J44.9 Chronic obstructive pulmonary disease, unspecified; F32.9 Major depressive disorder, single episode, unspecified; K21.9 Gastro-esophageal reflux disease without esophagitis; G25.81 Restless legs syndrome; G47.33 Obstructive sleep apnea (adult) (pediatric); I25.10 Atherosclerotic heart disease of native coronary artery without angina pectoris; E11.22 Type 2 diabetes mellitus with diabetic chronic kidney disease; K31.89 Other diseases of stomach and duodenum; K44.9 Diaphragmatic hernia without obstruction or gangrene; D63.1 Anemia in chronic kidney disease; K29.70 Gastritis, unspecified, without bleeding; I48.0 Paroxysmal atrial fibrillation; K90.0 Celiac disease; I25.2 Old myocardial infarction; E87.6 Hypokalemia; N40.0 Benign prostatic hyperplasia without lower urinary tract symptoms; Z86.010 Personal history of colon polyps; Z86.73 Personal history of transient ischemic attack (TIA), and cerebral infarction without residual deficits; Z99.2 Dependence on renal dialysis; Z79.01 Long term (current) use of anticoagulants; Z79.4 Long term (current) use of insulin; Z79.899 Other long term (current) drug therapy; Z88.0 Allergy status to penicillin; Z88.1 Allergy status to other antibiotic agents; Z88.6 Allergy status to analgesic agent; Z88.8 Allergy status to other drugs, medicaments and biological substances; Z91.040 Latex allergy status; Z20.828 Contact with and (suspected) exposure to other viral communicable diseases; Z98.1 Arthrodesis status; Z86.718 Personal history of other venous thrombosis and embolism

== ENCOUNTER → 2020-10-26 | Outpatient (CLI) | payer MEDICARE, MEDICAID ==
[~2020-10-26] MED LIST changes: +BETA0.0543 TOP; +ENTR1TAB PO; +PROL60SO SC; +TRAZ-257 PO; +TRIA2LOT TOP
== END ==
LOC: M LABSMTC 08:12
PROVIDERS: ATTEND Anesthesiology
DX: Z01.812 Encounter for preprocedural laboratory examination (principal); Z20.828 Contact with and (suspected) exposure to other viral communicable diseases

== ENCOUNTER 2020-10-31 07:21 | Day surgery (SDC) | payer MEDICARE, MEDICAID ==
[~2020-10-31] VITALS: Ht 175.3 cm; Wt 82.1 kg
[~2020-10-31 07:21] MED LIST changes: +BSS IRR 500ML/OMIDRIA 4ML IRR BAG (OR ONLY) As Ordered ONE; +DUOVISC (0.50ML VISCOAT/0.55ML PROVISC) OPHTH KIT As Ordered ONE; +MIDAZOLAM INJ 2MG/2ML VIAL (J2250 PER 1MG) As Ordered ONE; +OFLOXACIN 0.3 % (OCUFLOX) OPTH SOL 5ML OS ONE; +PHENYLEPHRINE 2.5% OPHTH SOL 2ML OS ONE; +POVIDONE-IODINE 5% OPHTH PREP SOL 30ML As Ordered ONE; +PROPARACAINE 0.5% OPHTH SOL 15ML OS ONE; +TROPICAMIDE 1% OPHTH SOLN 2ML OS ONE; +fentaNYL 100 MCG/2 ML INJECTION (J3010) As Ordered ONE
[2020-10-31] MEDS ORDERED: MIDAZOLAM INJ 2MG/2ML VIAL (J2250 PER 1MG) As Ordered ONE (09:49)
[2020-10-31] MEDS ORDERED: propofoL 200 MG/20 ML VIAL As Ordered ONE (09:51)
[2020-10-31] MEDS ORDERED: ACETAMINOPHEN 325 MG TAB PO PRN (10:00)
[2020-10-31 11:43] VITALS: BP 131/61
--- NOTE | 2020-11-01 08:38 | RO ---
OPERATIVE NOTE DATE OF OPERATION: 10/31/2020 PREOPERATIVE DIAGNOSIS: 1. Visually significant nuclear sclerotic cataract, left eye. POSTOPERATIVE DIAGNOSIS: 1. Visually significant nuclear sclerotic cataract, left eye. PROCEDURE: 1. Cataract extraction with use of phacoemulsification, and placement of intraocular lens, AU00T0 21.5, left eye. SURGEON: Oneal Lim DO ANESTHESIA: Local (Omidria with MAC) COMPLICATIONS: None POSTOPERATIVE CONDITION: Stable INDICATIONS FOR SURGERY: 1. Blurred vision affecting patient's activities of daily living. DESCRIPTION OF PROCEDURE: The patient was seen in the preoperative area and properly identified. The correct operative eye was identified and marked. The patient received topical anesthetic, antibiotics, and topical dilating drops. The patient was then transferred to the operating room. The correct side was re-identified and a time-out was performed. The eye was prepped and draped in a sterile fashion. The eyelids were isolated with Tegaderm tape and the lids were held open with an adjustable speculum. A 1.0mm paracentesis incision was made. Omidria was then injected into the anterior chamber. Viscoelastic was then injected into the anterior chamber through the paracentesis. Using a 2.4mm sharp-tipped keratome, the anterior chamber was entered via a temporal clear cornea incision. A continuous curvilinear capsulorrhexis was created with Utrata forceps. Hydrodissection was performed with BSS on a blunt cannula until the nucleus was able to rotate freely. The crystalline lens was phacoemulsified and aspirated. Irrigation/aspiration was used to remove the cortical material Cohesive viscoelastic was placed into the capsular bag to deepen it. The implant was placed into the capsular bag and allowed to unfold. Placement was confirmed by visualizing the anterior capsulorrhexis. Irrigation/aspiration was used to remove the viscoelastic. The clear corneal incision was hydrated with BSS on a blunt cannula. The lens was well positioned. Intracameral antibiotic was injected into the anterior chamber. The incisions were then tested for leaks and found to be negative. The eye was then palpated for appropriate pressure and adjusted accordingly with BSS. The eyelid speculum was then carefully removed. A shield was placed over the eye. The patient tolerated the procedure well and was discharge to the recovery unit in a stable condition. JOVANNA
== END 2020-10-31 11:43 | disposition home or self-care (01) ==
LOC: M SDC 07:21
PROVIDERS: ATTEND Ophthalmology
DX: H25.12 Age-related nuclear cataract, left eye (principal); I10 Essential (primary) hypertension; I25.10 Atherosclerotic heart disease of native coronary artery without angina pectoris; Z98.61 Coronary angioplasty status; J44.9 Chronic obstructive pulmonary disease, unspecified; K21.9 Gastro-esophageal reflux disease without esophagitis; F41.9 Anxiety disorder, unspecified; F32.9 Major depressive disorder, single episode, unspecified; Z79.899 Other long term (current) drug therapy; I73.9 Peripheral vascular disease, unspecified; E78.5 Hyperlipidemia, unspecified; Z87.891 Personal history of nicotine dependence; Z79.01 Long term (current) use of anticoagulants; Z79.4 Long term (current) use of insulin
CPT/HCPCS: 66984; J1097; J2250; J3010; V2632

== ENCOUNTER → 2020-11-23 | Outpatient (CLI) | payer MEDICARE, MEDICAID ==
[~2020-11-23] MED LIST changes: -BROM0.07 OD; +BROM0.07 OS; -BSS IRR 500ML/OMIDRIA 4ML IRR BAG (OR ONLY) As Ordered ONE; -DUOVISC (0.50ML VISCOAT/0.55ML PROVISC) OPHTH KIT As Ordered ONE; -INVE1SUS OD; +INVE1SUS OS; -MIDAZOLAM INJ 2MG/2ML VIAL (J2250 PER 1MG) As Ordered ONE; -OFLOXACIN 0.3 % (OCUFLOX) OPTH SOL 5ML OS ONE; -PHENYLEPHRINE 2.5% OPHTH SOL 2ML OS ONE; -POVIDONE-IODINE 5% OPHTH PREP SOL 30ML As Ordered ONE; -PROPARACAINE 0.5% OPHTH SOL 15ML OS ONE; -TROPICAMIDE 1% OPHTH SOLN 2ML OS ONE; +ZOFR4TAB16 PO; -fentaNYL 100 MCG/2 ML INJECTION (J3010) As Ordered ONE
== END ==
LOC: M LABSMTC 07:49
PROVIDERS: ATTEND Anesthesiology
DX: Z01.812 Encounter for preprocedural laboratory examination (principal); Z20.822 Contact with and (suspected) exposure to COVID-19

== ENCOUNTER 2020-11-28 06:44 | Day surgery (SDC) | payer MEDICARE, MEDICAID ==
[~2020-11-28] VITALS: Ht 175.3 cm; Wt 82.6 kg
[~2020-11-28 06:44] MED LIST changes: +HYDR-3490 PO; -HYDR25TAB PO; +ISOS1TAB35 PO; -ISOS30TA4 PO; +NS 1,000 ML IV ONE
[2020-11-28] MEDS ORDERED: fentaNYL 100 MCG/2 ML INJECTION (J3010) As Ordered ONE (08:56)
[2020-11-28] MEDS ORDERED: LIDOCAINE 2% 100MG/5ML SDV (FOR ANES.) As Ordered ONE (08:56)
[2020-11-28] MEDS ORDERED: propofoL 500 MG/50 ML VIAL As Ordered ONE ×2 (08:56→09:54)
--- NOTE | 2020-11-28 09:13 | ROOR ---
Patient Name: Nile Castillo Procedure Date: 11/28/2020 8:51 AM Date of : 1950 Age: 70 Room: [facility] Gender: Male Note Status: Finalized Procedure: Upper GI endoscopy Indications: Heartburn, Follow-up of peptic ulcer Providers: Eliel PATRICK MD Referring MD: Shan Harrell Do Requesting Provider: Medicines: Monitored Anesthesia Care Complications: No immediate complications. Procedure: Pre-Anesthesia Assessment: - The heart rate, respiratory rate, oxygen saturations, blood pressure, adequacy of pulmonary ventilation, and response to care were monitored throughout the procedure. The Endoscope was introduced through the mouth, and advanced to the third part of duodenum. The upper GI endoscopy was accomplished without difficulty. The patient tolerated the procedure well. Findings: The Z-line was variable and was found 40 cm from the incisors. Biopsies were taken with a cold forceps for histology. Diffuse mucosal flattening was found in the first portion of the duodenum. Biopsies for histology were taken with a cold forceps for evaluation of celiac disease. The exam was otherwise without abnormality. Impression: - Z-line variable, 40 cm from the incisors. Biopsied. - Mildly flattened mucosa was found in the first portion of the duodenum. The second portion appears normal. Biopsied. - Retained Endoclip in place second portion duodenum. The duodenal ulcer has healed. - The examination was otherwise normal. Recommendation: - Continue present medications. - Observe patient's clinical course. Procedure Code(s): --- Professional --- 90356, Esophagogastroduodenoscopy, flexible, transoral; with biopsy, single or multiple Diagnosis Code(s): --- Professional --- K22.8, Other specified diseases of esophagus K31.89, Other diseases of stomach and duodenum R12, Heartburn K27.9, Peptic ulcer, site unspecified, unspecified as acute or chronic, without hemorrhage or perforation CPT copyright 2019 [employer]. All rights reserved. The codes documented in this report are preliminary and upon coder operator review may be revised to meet current compliance requirements. Eliel Patrick MD Eliel PATRICK MD 11/28/2020 9:13:15 AM Electronically signed by Eliel PATRICK MD Number of Addenda: 0 Note Initiated On: 11/28/2020 8:51 AM Estimated Blood Loss: Estimated blood loss: none.
--- NOTE | 2020-11-28 09:57 | ROOR ---
Patient Name: Nlie Castillo Procedure Date: 11/28/2020 8:52 AM Date of : 1950 Age: 70 Room: [facility] Gender: Male Note Status: Finalized Procedure: Colonoscopy Indications: Heme positive stool, Unexplained iron deficiency anemia Providers: Eliel PATRICK MD Referring MD: Shan Harrell Do Requesting Provider: Medicines: Monitored Anesthesia Care Complications: No immediate complications. Procedure: Pre-Anesthesia Assessment: - The heart rate, respiratory rate, oxygen saturations, blood pressure, adequacy of pulmonary ventilation, and response to care were monitored throughout the procedure. The Colonoscope was introduced through the anus and advanced to 10 cm into the ileum. The colonoscopy was performed without difficulty. The patient tolerated the procedure well. The quality of the bowel preparation was adequate. Findings: The perianal and digital rectal examinations were normal. Two sessile polyps were found in the splenic flexure. The polyps were diminutive in size. These polyps were removed with a cold snare. Resection and retrieval were complete. To prevent bleeding after the polypectomy, two hemostatic clips were successfully placed. A 10 mm polyp was found in the mid rectum. The polyp was semi-sessile. The polyp was removed with a cold snare. Resection and retrieval were complete. To prevent bleeding after the polypectomy, four hemostatic clips were successfully placed. Multiple medium-mouthed diverticula were found in the sigmoid colon. The exam was otherwise normal throughout the examined colon. The terminal ileum appeared normal. A tattoo was seen in the ascending colon. A post-polypectomy scar was found at the tattoo site. There was no evidence of residual polyp tissue. Impression: - Two diminutive polyps at the splenic flexure, removed with a cold snare. Resected and retrieved. Clips were placed. - One 10 mm polyp in the mid rectum, removed with a cold snare. Resected and retrieved. Clips were placed. - Small internal hemorrhoids see on retroflexion. - The colon is otherwise normal. - Moderate diverticulosis in the sigmoid colon. - The examined portion of the ileum was normal. Recommendation: - Repeat colonoscopy in 3 years for surveillance. - Telephone endoscopist for pathology results in 2 weeks. - Resume Coumadin (warfarin) at prior dose tomorrow. Refer to managing physician for further adjustment of therapy. Procedure Code(s): --- Professional --- 79784, Colonoscopy, flexible; with removal of tumor(s), polyp(s), or other lesion(s) by snare technique Diagnosis Code(s): --- Professional --- K57.30, Diverticulosis of large intestine without perforation or abscess without bleeding D50.9, Iron deficiency anemia, unspecified R19.5, Other fecal abnormalities K62.1, Rectal polyp K63.5, Polyp of colon CPT copyright 2019 [employer]. All rights reserved. The codes documented in this report are preliminary and upon pinking machine operator review may be revised to meet current compliance requirements. Eliel Patrick MD Eliel PATRICK MD 11/28/2020 9:57:42 AM Electronically signed by Eliel PATRICK MD Number of Addenda: 0 Note Initiated On: 11/28/2020 8:52 AM Estimated Blood Loss: Estimated blood loss: none.
[2020-11-28 10:15] VITALS: BP 135/94
== END 2020-11-28 10:27 | disposition home or self-care (01) ==
LOC: M OPP 06:44
PROVIDERS: ATTEND Internal Medicine Gastroenterology
DX: R19.5 Other fecal abnormalities (principal); D50.9 Iron deficiency anemia, unspecified; R12 Heartburn; K27.9 Peptic ulcer, site unspecified, unspecified as acute or chronic, without hemorrhage or perforation; K22.70 Barrett's esophagus without dysplasia; D12.3 Benign neoplasm of transverse colon; D12.8 Benign neoplasm of rectum; K57.30 Diverticulosis of large intestine without perforation or abscess without bleeding; D13.0 Benign neoplasm of esophagus; D13.2 Benign neoplasm of duodenum; K22.8 Other specified diseases of esophagus; K31.89 Other diseases of stomach and duodenum; I25.10 Atherosclerotic heart disease of native coronary artery without angina pectoris; I50.9 Heart failure, unspecified; I11.0 Hypertensive heart disease with heart failure; E78.5 Hyperlipidemia, unspecified; R60.0 Localized edema; E10.9 Type 1 diabetes mellitus without complications; M19.90 Unspecified osteoarthritis, unspecified site; Z86.718 Personal history of other venous thrombosis and embolism; F41.9 Anxiety disorder, unspecified; F32.9 Major depressive disorder, single episode, unspecified; G62.9 Polyneuropathy, unspecified; J44.9 Chronic obstructive pulmonary disease, unspecified; G47.30 Sleep apnea, unspecified; K90.0 Celiac disease; Z95.5 Presence of coronary angioplasty implant and graft; Z86.73 Personal history of transient ischemic attack (TIA), and cerebral infarction without residual deficits; Z88.0 Allergy status to penicillin; Z88.1 Allergy status to other antibiotic agents; Z88.6 Allergy status to analgesic agent; Z88.8 Allergy status to other drugs, medicaments and biological substances; Z91.040 Latex allergy status; Z79.01 Long term (current) use of anticoagulants; Z79.4 Long term (current) use of insulin; Z79.82 Long term (current) use of aspirin; Z85.828 Personal history of other malignant neoplasm of skin; Z80.1 Family history of malignant neoplasm of trachea, bronchus and lung
CPT/HCPCS: 43239; 45385; 84132; 88305; J3010

== ENCOUNTER 2020-12-31 16:02 | Emergency (ER) | payer MEDICARE, MEDICAID ==
[~2020-12-31] VITALS: Ht 175.3 cm; Wt 80.9 kg
[~2020-12-31 16:02] MED LIST changes: -NS 1,000 ML IV ONE
[2020-12-31 16:53] LABS: BASO # 0.1 10^3/uL (0.0-0.2); BASO % 1.1 % (0.0-1.0); EOS # 0.4 10^3/uL (0.0-0.5); EOS % 5.8 % (0.0-3.0); LYMPH # 1.5 10^3/uL (1.5-5.0); LYMPH % 20.7 % (24.0-44.0); MEAN CORPUSCULAR HEMOGLOBIN 32.4 pg (27.0-33.0); MEAN CORPUSCULAR HGB CONC 33.3 g/dl (32.0-36.5); MEAN CORPUSCULAR VOLUME 97.2 fl (80.0-96.0); MONO # 0.7 10^3/uL (0.0-0.8); MONO % 9.8 % (2.0-8.0); NEUTROPHILS # 4.4 10^3/uL (1.5-8.5); NEUTROPHILS % 61.9 % (36.0-66.0); PLATELET COUNT, AUTOMATED 251 10^3/uL (150-450); RED BLOOD COUNT 4.32 10^6/uL (4.30-6.10); WHITE BLOOD COUNT 7.1 10^3/uL (4.0-10.0)
--- NOTE | 2020-12-31 16:58 | REP ---
INDICATION: Altered Mental Status COMPARISON: 09/15/2020 TECHNIQUE: Portable AP view of the chest FINDINGS: The mediastinum and cardiac silhouette are stable and within normal limits for portable technique. The lung melissa demonstrate chronic stable changes without acute consolidation, effusion, or pneumothorax. Skeletal structures are intact. Previously noted infiltrate resolved. IMPRESSION: No acute cardiopulmonary process appreciated. <Electronically signed by Ronal Ro > 12/31/20 [id number]
[2020-12-31 17:08] LABS: INR 1.66
[2020-12-31 17:24] LABS: ALBUMIN 4.1 GM/DL (3.2-5.2); BILIRUBIN,DIRECT 0.1 MG/DL (0.0-0.2); BILIRUBIN,TOTAL 0.4 MG/DL (0.2-1.0); CALCIUM LEVEL 9.6 MG/DL (8.8-10.2); CK-MB VALUE MASS 3.5 NG/ML (<3.6); CREATININE FOR GFR 5.74 MG/DL (0.70-1.30); GLOMERULAR FILTRATION RATE 10.5 (>49); MB/CK RELATIVE INDEX 3.4 (< OR =4); THYROID STIMULATING HORMONE 7.49 uIU/ML (0.358-3.740); TOTAL PROTEIN 8.2 GM/DL (6.4-8.2); TROPONIN I 0.02 NG/ML (< 0.10)
--- NOTE | 2020-12-31 17:46 | REP ---
INDICATION: abd pain COMPARISON: None. TECHNIQUE: Two views of the abdomen and pelvis. FINDINGS: Bowel gas pattern is nonspecific. No organomegaly. No significant abnormal calcifications. Skeletal structures demonstrate degenerative changes. IMPRESSION: Nonspecific bowel gas pattern. <Electronically signed by Ronal Ro > 12/31/20 [id number]
[2020-12-31] MEDS ORDERED: CEFDINIR 300 MG CAP (OMNICEF) PO ONE (18:15)
[2020-12-31] MEDS ORDERED: CEFD1CAP8 PO (18:29)
[2020-12-31 19:30] VITALS: BP 139/56
--- NOTE | 2021-01-01 00:32 | ECGEPIP ---
[facility] - ED Test Date: 2020-12-31 Pat Name: YOVANI VALLEJO Department: Room: - Gender: Male Certified Pathology Assistant: ROSIE : 1950 Requested By: RAVEN Nation Order Number: [id number] Reading MD: Orion Grajeda Measurements Intervals [place] Rate: 65 P: 27 AR: 210 QRS: -57 QRSD: 104 T: 82 QT: 432 QTc: 449 Interpretive Statements Sinus rhythm with 1st degree AV block Incomplete right bundle branch block NSTTW ABNORMALITY(S) SIMILAR TO 10/02/20 Electronically Signed on 01-01-2021 0:31:42 EST by Orion Grajeda
== END 2020-12-31 19:55 | disposition home or self-care (01) ==
LOC: EDBD 16:02 → M ED 16:02
DX: N18.9 Chronic kidney disease, unspecified (principal); N39.0 Urinary tract infection, site not specified; E11.9 Type 2 diabetes mellitus without complications; I12.9 Hypertensive chronic kidney disease with stage 1 through stage 4 chronic kidney disease, or unspecified chronic kidney disease; K90.0 Celiac disease; Z79.899 Other long term (current) drug therapy; Z79.82 Long term (current) use of aspirin; Z79.4 Long term (current) use of insulin; Z79.01 Long term (current) use of anticoagulants; Z88.0 Allergy status to penicillin; Z88.1 Allergy status to other antibiotic agents; Z88.8 Allergy status to other drugs, medicaments and biological substances; Z91.040 Latex allergy status; Z87.891 Personal history of nicotine dependence

== ENCOUNTER → 2021-01-09 | Outpatient (CLI) | payer MEDICARE, MEDICAID ==
[~2021-01-09] MED LIST changes: +CEFD1CAP8 PO
--- NOTE | 2021-01-14 05:09 | ECWPNPC ---
PATIENT NAME: YOVANI VALLEJO : 1950 GENDER: MALE VISIT DATE: 01/09/2021 DISCHARGE DATE: 01/09/21 1147 VISIT LOCKED DATE TIME: PHYSICIAN: SAVANNA PARR PHYSICIAN PAGER NO: ACTIVE RESOURCE: SAVANNA PARR REASON FOR APPOINTMENT 1. FOOT/LEG HISTORY OF PRESENT ILLNESS DEPRESSION SCREENING: PHQ-2 (2015 EDITION) LITTLE INTEREST OR PLEASURE IN DOING THINGS?NOT AT ALL FEELING DOWN, DEPRESSED, OR HOPELESS?NOT AT ALL TOTAL SCORE0 GENERAL: HERE FOR FOLLOW-UP AND MEDICATION MANAGEMENT FOR CHRONIC PAIN ASSOCIATED WITH PERIPHERAL NEUROPATHY OF THE LOWER EXTREMITIES. ATTENDS DIALYSIS 4 TIMES A WEEK. FOLLOWS WITH DR. ANN, CARDIOLOGY FOR HISTORY OF STROKE. OVERALL DOING WELL. ACCOMPANIED IN THE EXAM ROOM WITH HIS . FINDS CURRENT CHRONIC PAIN MEDICATION HELPFUL AT REDUCING HIS LEG PAIN, BURNING AND NUMBNESS. DENIES ADVERSE SIDE EFFECTS.-. FALL RISK SCREENING: SCREENING ONE FALL SLIP ON ICE 10/2020 WENT TO THE DOCTOR. PAIN SCREENING: PATIENT HAS A COMPLAINT OF ACUTE OR CHRONIC PAIN :YES LOCATION OF PAIN:LEG(S) LEFT FOOT LEG INTENSITY OF PAIN (SCALE OF 1 TO 10):2 WHAT DOES YOUR PAIN FEEL LIKE:SHARP DURATION:INTERMITTENT PAIN IS INCREASED BY:ACTIVITIES, PROLONGED STANDING PAIN IS DECREASED BY:USE OF PAIN MEDICATIONS NURSING NOTE: -. PAIN CENTER INTAKE QUESTIONS: DO YOU HAVE A HISTORY OF MRSA? :NO DO YOU TAKE A BLOOD THINNERS? :YES COUMADIN FOR DVT'S, HEPARIN FOR DIALYSIS AND PLAVIX FOR STENTS DO YOU HAVE ANY BLEEDING DISORDERS? :NO ANY NEW NUMBNESS OR WEAKNESS IN YOUR LEGS OR ARMS? :YES POSTERIOR LEGS GETTING NUMB ANY PACEMAKER,DEFIBRILLATOR, OR DORSAL COLUMN STIMULATOR? :NO DO YOU HAVE ANY RASHES OR OPEN SORES? :YES ARMS ARE YOU ALLERGIC TO IV DYE? :NO ARE YOU DIABETIC? :YES INSULIN ANY NEW PROBLEMS WITH YOUR MEDICATIONS? :NO HAVE YOU RECEIVED A VACCINE IN THE PAST 30 DAYS? :NO DO YOU PLAN TO RECEIVE A VACCINE IN THE NEXT 21 DAYS? :NO DO YOU NEED ANY PRESCRIPTION? :YES BUTRANS PATCH DO YOU TAKE ANY IMMUNOSUPPRESSIVE MEDICATIONS? :NO IS THERE A CHANCE YOU COULD BE ? :NO ARE YOU BREAST FEEDING? :NO CURRENT MEDICATIONS TAKING FULL KIT NEBULIZER SET - MISCELLANEOUS DIRECTED DX J44.9 (COPD) DAILY TAKING BLOOD PRESSURE MONITOR - KIT DIRECTED TAKING CALCITRIOL 0.25 MCG CAPSULE 1 CAPSULE ORAL 4 X [id number] WITH DIALYSIS TAKING PROCRIT 74380 UNIT/ML SOLUTION INJECTION MONTHLY TAKING FISH OIL 1000 MG CAPSULE 1 CAP(S) ORALLY THREE TIMES A DAY TAKING PEN NEEDLES 31G X 5 MM ULTRA FINE 1 EACH INTRADERMALLY DIAG CODE 250.6 FOUR TIMES A DAY TAKING MIRALAX - PACKET 1 PACKET MIXED WITH 8 OUNCES OF FLUID ORALLY TWICE DAILY TAKING VITAMIN D (ERGOCALCIFEROL) 70212 UNIT CAPSULE 1 CAPSULE ORALLY ONCE A WEEK-WEDNESDAY TAKING BISOPROLOL FUMARATE 5 MG TABLET 1 TABLET ORALLY TWICE DAILY TAKING NOVOLOG 100 UNIT/ML SOLUTION DIRECTED SUBCUTANEOUS 7 UNITS BREAKFAST AND DINNER, 5 UNITS LUNCH TAKING GLUCAGON EMERGENCY 1 MG KIT DIRECTED INJECTION DAILY NEEDED TAKING LANTUS 100 UNIT/ML SOLUTION TWICE A DAY SUBCUTANEOUS 8 UNITS IN AM AND 5 UNITS AT BEDTIME TAKING NITROGLYCERIN 0.4 MG TABLET SUBLINGUAL DIRECTED SUBLINGUAL Q 5MIN X3 FOR CHEST PAIN TAKING ACETAMINOPHEN 500 MG TABLET 2 TABLETS NEEDED ORALLY EVERY 6 HOURS FOR PAIN MDD 3000MG TAKING BUMETANIDE 2 MG TABLET 1 TAB ORALLY DAILY, NOTES: BUMEX TAKING LIDOCAINE-PRILOCAINE 2.5-2.5 % CREAM DIRECTED EXTERNALLY TO PORT 3 TIMES WEEKLY PRIOR TO DIALYSIS, NOTES: COREEN TAKING TAMSULOSIN HCL 0.4 MG CAPSULE EXTENDED RELEASE 24 HOUR 1 CAPSULE 30 MINUTES AFTER THE SAME MEAL EACH DAY ORALLY ONCE A DAY, NOTES: FLOMAX TAKING MECLIZINE HCL 12.5 MG TABLET 2 TABLETS NEEDED ORALLY ONCE A DAY NEEDED FOR VERTIGO, NOTES: PRN TAKING PANTOPRAZOLE SODIUM 40 MG TABLET DELAYED RELEASE 1 TABLET ORALLY ONCE A DAY TAKING PROLIA 60 MG/ML SOLUTION PREFILLED SYRINGE DIRECTED SUBCUTANEOUS EVERY 6 MONTHS TAKING AZELASTINE HCL 137 MCG/SPRAY SOLUTION 1 SPRAY IN EACH NOSTRIL NASALLY DAILY TAKING COUMADIN 5 MG TABLET 8MG ORALLY DAILY TAKING PRAMIPEXOLE DIHYDROCHLORIDE 0.25 MG TABLET 1 TABLET ORALLY BID, NOTES: MIRAPEX TAKING CALCIUM ACETATE 667 MG CAPSULE 1 TAB ORALLY THREE TIMES A DAY TAKING BETAMETHASONE DIPROPIONATE AUG 0.05 % CREAM 1 APPLICATION EXTERNALLY TO ARMS, LEGS, AND TRUNK (LARGE AREA) BID TAKING ADVAIR HFA 230-21 MCG/ACT AEROSOL 2 PUFFS INHALATION TWICE A DAY TAKING LIPITOR 40 MG TABLET 1 TABLET ORALLY ONCE A DAY TAKING BUTRANS 20 MCG/HR PATCH WEEKLY 1 PATCH TO SKIN TRANSDERMAL APPLY 1 PATCH Q 7 DAYS MDD=1 TAKING ENTRESTO 24-26 MG TABLET 1 TABLET ORALLY TWICE A DAY TAKING GABAPENTIN 100 MG CAPSULE 1 CAPSULE ORALLY ONCE A DAY TAKING ZOFRAN ODT 4 MG TABLET DISINTEGRATING 1 TABLET ON THE TONGUE AND ALLOW TO DISSOLVE ORALLY 3 TIMES A DAY NEEDED FOR NAUSEA TAKING ALBUTEROL SULFATE (2.5 MG/3ML) 0.083% NEBULIZATION SOLUTION 3 ML INHALATION EVERY 4 HRS NEEDED FOR SOB/WHEEZING TAKING PROVENTIL HFA 108 (90 BASE) MCG/ACT AEROSOL SOLUTION 2 PUFFS INHALATION EVERY 4 HOURS NEEDED TAKING HYDROCODONE-ACETAMINOPHEN 5-325 MG TABLET 1 TABLET NEEDED ORALLY EVERY 6 HRS MDD: 4 TABS TAKING FLONASE ALLERGY RELIEF 50 MCG/ACT SUSPENSION 2 SPRAYS IN EACH NOSTRIL NASALLY DAILY NOT-TAKING ISOSORBIDE MONONITRATE ER 30 MG TABLET EXTENDED RELEASE 24 HOUR 1 TABLET ORAL ONCE A DAY NOT-TAKING PLAVIX 75 MG TABLET 1 TABLET ORALLY ONCE A DAY NOT-TAKING RENVELA 0.8 GM PACKET 1 PACKET MIXED WITH 30 ML OF WATER WITH MEALS ORALLY THREE TIMES A DAY NOT-TAKING WARFARIN SODIUM 5 MG TABLET TAKE 2 TABLETS BY MOUTH WEDNESDAY AND WEDNESDAY. 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 PRADO GORDON ON CPAP SUBCLINICAL HYPOTHYROIDISM 06/07 DIVERTICULOSIS 04/2019 KIDNEY DISEASE STAGE 4 REGURING DIALYSIS 4 TIMES WEEKLY L2 VERTERAE FX DERMATITIS HERPETIFORMIS L3 FRACTURE FLU/PNEUMONIA STROKE ALLERGIES ACTOS: EDEMA - SIDE EFFECTS DEMEROL: HIVES - ALLERGY DILANTIN: ANAPHYLAXIS - ALLERGY GLUCOPHAGE: RASH - ALLERGY LEVAQUIN: HEAD ACHE - SIDE EFFECTS PHENOBARBITAL: ANAPHYLAXIS - ALLERGY TEGRETOL: ANAPHYLAXIS - ALLERGY PENICILLIN (FOR ALLERGIES USE ONLY): HIVES - ALLERGY TRIPLE ANTIBIOTIC: FACIAL SWELLING - ALLERGY REQUIP: ELEVATED LIVER ENZYMES LATEX (FOR ALLERGY USE ONLY): RASH - ALLERGY CRESTOR: HEADACHE LYRICA: DIDN'T WORK - SIDE EFFECTS CAPSACIN (TOPICALLY): EXCESSIVE BURNING - SIDE EFFECTS LISINOPRIL: RASH - SIDE EFFECTS GABAPENTIN: DIDN'T WORK - LACK OF THERAPEUTIC EFFECT DAPSONE: ANEMIA - SIDE EFFECTS NSAIDS: CONTRAINDICATION BEES: ANAPHYLAXIS - ALLERGY SOCIAL HISTORY GENERAL: TOBACCO USE ARE YOU A: NONSMOKER. LATEX QUESTIONNAIRE LATEX ALLERGY : HAVE YOU EVER DEVELOPED ANY TYPE OF REACTION AFTER HANDLING LATEX PRODUCTS SUCH RUBBER GLOVES, CONDOMS, DIAPHRAGMS, BALLOONS, SOCKS, OR UNDERWEAR?YES - PLEASE INDICATE :RUBBER GLOVES LATEX ALLERGY : HAVE YOU EVER DEVELOPED ANY TYPE OF REACTION DURING OR AFTER DENTAL APPOINTMENT, VAGINAL/RECTAL EXAMINATION, SURGICAL PROCEDURE, OR ANY OTHER EXPOSURE?NO LATEX RISK : HAVE YOU EVER HAD ANY DIFFICULTY BREATHING OR HIVES AFTER EATING OR HANDLING ANY FRUITS, OR VEGETABLES; SUCH KIWI, BANANAS, STONE FRUITS, OR CHESTNUTSNO LATEX RISK : DO YOU HAVE A PREVIOUS PERSONAL HISTORY OF MORE THAN NINE SURGERIES, SPINA BIFIDA, OR REPEATED CATHERIZATIONS? NO LATEX RISK : ARE YOU FREQUENTLY EXPOSED TO LATEX PRODUCTS IN YOUR OCCUPATION?NO DATE ASKED : 01/09/2021 ALCOHOL USE: NO. BMI CARE GOAL FOLLOW-UP ABOVE NORMAL BMI FOLLOW-UPDIETARY MANAGEMENT EDUCATION, GUIDANCE, AND COUNSELING ALCOHOL SCREENING DID YOU HAVE A DRINK CONTAINING ALCOHOL IN THE PAST YEAR?NO POINTS0 INTERPRETATIONNEGATIVE RECREATIONAL DRUG USE DRUG USE?NO CAFFEINE CAFFEINE USE?YES HOW OFTEN AND HOW MUCH? 2 CUPS COFFEE/DAY SEXUAL HX HAD SEX IN THE LAST 12 MONTHS (VAGINAL, ORAL, OR ANAL)?NO HAVE YOU EVER HAD AN STD?NO HIV / HEP-C SCREENING HIV TEST OFFERED TO PATIENT:YES DATE OFFERED:02/08/2017 TEST ACCEPTED:NO HEP-C TEST OFFERED TO PATIENT:YES DATE OFFERED:02/08/2017 REASON:PATIENT DECLINED TEST ACCEPTED:NO REASON:PATIENT DECLINED JEWISH [id number] L[employer] LANGUAGES SPOKEN:SAMI EDUCATION LEVEL OF EDUCATION:NOT FINISHED HIGH SCHOOL LEARNING BARRIERS / SPECIAL NEEDS CHANGE FROM LAST VISIT?YES BARRIERS TO LEARNING?NO HEARING IMPAIRED?YES :HEARING AIDES VISION IMPAIRED?YES :CORRECTIVE LENSES COGNITIVELY IMPAIRED?NO READINESS TO LEARN?YES LEARNING PREFERENCES?YES :DEMONSTRATION/VERBAL INSTRUCTION LEARNING CAPABILITIES PRESENT?YES EMOTIONAL BARRIERS?NO SPECIAL DEVICES?YES :CANE CONVEYOR FEEDER NEEDED?NO DOMESTIC VIOLENCE DO YOU FEEL SAFE IN YOUR ENVIRONMENT?YES OCCUPATION: DISABLED. DIET: NO ADDED SALT, LOW FAT, LOW CHOLESTEROL. EXERCISE: NONE. MARITAL STATUS: . OTHERS AT HOME: SPOUSE. TODAY'S VISITNOTES 02/26/2020 PATIENT DESCRIBES PAIN :ACHING, IT COMES AND GOES, OTHER CRAMPING - LEGS FROM 0-10, WHAT LEVEL IS YOUR PAIN TODAY?4 - PFS REFERRAL NEEDED?NO CLERGY REFERRAL NEEDED?NO PUBLIC HEALTH REFERRAL NEEDED?NO WAS THE PROVIDER NOTIFIED OF ANY PERTINENT INFO? N/A HAS THE PATIENT BEEN EDUCATED REGARDING HIS/HER PLAN OF CARE?YES HAS THE PATIENT BEEN EDUCATED REGARDING PAIN, THE RISK FOR PAIN, THE IMPORTANCE OF EFFECTIVE PAIN MANAGEMENT, AND THE PAIN ASSESSMENT PROCESS?YES HOUSING: OWNS HOME. ADVANCE DIRECTIVE ADVANCE DIRECTIVE DISCUSSED WITH PATIENT:YES HAS HCP [phone] DAUGHTER ELIZABETH VALLEJO [phone] SON PAM VALLEJO [phone] REVIEW OF SYSTEMS CONSTITUTIONAL: ANY RECENT FEVER NO . CHILLS NO . WEIGHT CHANGE OF UNKNOWN REASONS NO . GASTROENTEROLOGY: NEW UNEXPLAINABLE CHANGES IN BOWEL CONTROL NO . CONSTIPATION NO . GENITOURINARY: ANY NEW CHANGE IN BLADDER CONTROL? NO . NEUROLOGY: NEW ONSET DIZZINESS OR NEUROLOGICAL CHANGES NOT MENTIONED NO . NEW NUMBNESS OR PAIN PATTERNS NOT MENTIONED AND PERTINENT TO TODAY'S VISIT NO . CARDIOLOGY: NEW CHEST PRESSURE NO . PATIENT DENIES NO . RESPIRATORY: UNEXPLAINABLE COUGH NO . NEW SHORTNESS OF BREATH NO . VITAL SIGNS WT 177 LBS, HT 69 IN, BMI 26.14 INDEX, BP 137/64 MM HG, HR 62 /MIN, RR 18 /MIN, TEMP 97.4 F, OXYGEN SAT % 99%, SAFE IN ENV? (Y/N) YEST.ESE LITTLEJOHN. EXAMINATION GENERAL EXAMINATION: GENERALAWAKE,ALERT ,PLEASANT . PSYCHAFFECT NORMAL . LUNGS:LUNG TITUS ARE CLEAR TO AUSCULTATION BILATERALLY. GOOD MOVEMENT OF AIR . HEART:S1, S2 IN A REGULAR RATE AND RHYTHM. NO SIGNIFICANT MURMURS, RUBS OR GALLOPS NOTED . ASSESSMENTS CHRONIC PRESCRIPTION OPIATE USE - Z79.891 (PRIMARY) DIABETIC PERIPHERAL NEUROPATHY - E11.42 TREATMENT CHRONIC PRESCRIPTION OPIATE USE REFILL BUTRANS PATCH WEEKLY, 20 MCG/HR, 1 PATCH TO SKIN, TRANSDERMAL, APPLY 1 PATCH Q 7 DAYS MDD=1, 30 DAYS, 4, REFILLS 2 REFILL GABAPENTIN CAPSULE, 100 MG, 1 CAPSULE, ORALLY, ONCE A DAY, 30 DAYS, 30 CAPSULE, REFILLS 5 LAB: ORAL FLUID TEST GROUP [facility] 01/09/2021 12:22:46 PM > LAST DOSE: GABAPENTIN 01/08/2021 @10PM, BUTRANS 01/03/2021 @10PM, HYDROCODONE 12/31/2020 @10PM NOTES: ISTOP REGISTRY REVIEWED AND DEMONSTRATES COMPLLIANCE. BRINGS IN MEDICATIONS WHICH IS APPROPRIATE FOR WHAT WAS DISPENSED. RECENT URINE TOXICOLOGY REVIEWED. NO UNAUTHORIZED MEDICATIONS. NO ILLICIT SUBSTANCES AND PRESCRIBED MEDICATIONS WERE PRESENT. PROCEDURE CODES FA211 ESTABILISHED PATIENT [facility] FACILITY CHARGE DISPOSITION & COMMUNICATION FOLLOW UP 3 MONTHS (REASON: MEDICATION MANAGEMENT/REVIEW URINE TOXICOLOGY) ELECTRONICALLY SIGNED BY JORGE HERRERA ON 01/13/2021 AT 03:31 PM EDT DISCLAIMER : THIS IS A VISIT SUMMARY EXTRACTED FROM THE [facility] CHART. IT IS NOT A COPY OF THE [employer] PROGRESS NOTE. JOVANNA
== END ==
LOC: M PAIN 11:00
PROVIDERS: ATTEND Nurse Practitioner Family
DX: E11.42 Type 2 diabetes mellitus with diabetic polyneuropathy (principal); E78.5 Hyperlipidemia, unspecified; I12.0 Hypertensive chronic kidney disease with stage 5 chronic kidney disease or end stage renal disease; J44.9 Chronic obstructive pulmonary disease, unspecified; K21.9 Gastro-esophageal reflux disease without esophagitis; G25.81 Restless legs syndrome; K90.0 Celiac disease; G47.33 Obstructive sleep apnea (adult) (pediatric); E11.22 Type 2 diabetes mellitus with diabetic chronic kidney disease; E02 Subclinical iodine-deficiency hypothyroidism; N18.6 End stage renal disease; Z79.891 Long term (current) use of opiate analgesic; Z88.0 Allergy status to penicillin; Z88.1 Allergy status to other antibiotic agents; Z88.6 Allergy status to analgesic agent; Z88.8 Allergy status to other drugs, medicaments and biological substances; Z91.030 Bee allergy status; Z91.040 Latex allergy status; Z99.2 Dependence on renal dialysis

== ENCOUNTER → 2021-04-22 | Outpatient (CLI) | payer MEDICARE, MEDICAID ==
[~2021-04-22] MED LIST changes: +ERGO500029 PO; +GABA-283 PO; -GABA-845 PO; +LIDO1CRE42 TOP; -LIDO2.5C15 TOP; +OMEP40CA4 PO; -OMEP40CA97 PO; -VITA50005 PO
--- NOTE | 2021-04-24 05:58 | ECWPNPC ---
PATIENT NAME: YOVANI VALLEJO : 1950 GENDER: MALE VISIT DATE: 04/22/2021 DISCHARGE DATE: 04/22/21 1130 VISIT LOCKED DATE TIME: PHYSICIAN: SAVANNA PARR PHYSICIAN PAGER NO: ACTIVE RESOURCE: SAVANNA PARR REASON FOR APPOINTMENT 1. FOOT/LEG HISTORY OF PRESENT ILLNESS GENERAL: - HERE FOR FOLLOW-UP AND MEDICATION MANAGEMENT FOR CHRONIC PAIN ASSOCIATED WITH PERIPHERAL NEUROPATHY OF THE LOWER EXTREMITIES. ATTENDS DIALYSIS 4 TIMES A WEEK. FOLLOWS WITH DR. ANN, CARDIOLOGY FOR HISTORY OF STROKE. OVERALL DOING WELL. ACCOMPANIED IN THE EXAM ROOM WITH HIS . FINDS CURRENT CHRONIC PAIN MEDICATION HELPFUL AT REDUCING HIS LEG PAIN, BURNING AND NUMBNESS. DENIES ADVERSE SIDE EFFECTS.-. FALL RISK SCREENING: SCREENING : NO FALLS REPORTED IN THE LAST YEAR. PAIN SCREENING: PATIENT HAS A COMPLAINT OF ACUTE OR CHRONIC PAIN :YES LOCATION OF PAIN:LEG(S), KNEES, FEET INTENSITY OF PAIN (SCALE OF 1 TO 10):6 WHAT DOES YOUR PAIN FEEL LIKE:OTHER WHEN HE MOVE IT HURTS DURATION:CONTINOUS, CONSTANT, ALL DAY PAIN IS INCREASED BY:ACTIVITIES PAIN IS DECREASED BY:SITTING, OTHERS STANDING NURSING NOTE: -. PAIN CENTER INTAKE QUESTIONS: DO YOU HAVE A HISTORY OF MRSA? :NO DO YOU TAKE A BLOOD THINNERS? :YES COUMADIN FOR DVT'S, HEPARIN FOR DIALYSIS AND PLAVIX FOR STENTS DO YOU HAVE ANY BLEEDING DISORDERS? :NO ANY NEW NUMBNESS OR WEAKNESS IN YOUR LEGS OR ARMS? :YES POSTERIOR LEGS GETTING NUMB ANY PACEMAKER,DEFIBRILLATOR, OR DORSAL COLUMN STIMULATOR? :NO STENTS DO YOU HAVE ANY RASHES OR OPEN SORES? :YES ARMS ARE YOU ALLERGIC TO IV DYE? :NO ARE YOU DIABETIC? :YES INSULIN ANY NEW PROBLEMS WITH YOUR MEDICATIONS? :NO HAVE YOU RECEIVED A VACCINE IN THE PAST 30 DAYS? :NO DO YOU PLAN TO RECEIVE A VACCINE IN THE NEXT 21 DAYS? :NO DO YOU NEED ANY PRESCRIPTION? :YES BUTRANS PATCH DO YOU TAKE ANY IMMUNOSUPPRESSIVE MEDICATIONS? :NO IS THERE A CHANCE YOU COULD BE ? :NO ARE YOU BREAST FEEDING? :NO CURRENT MEDICATIONS TAKING FULL KIT NEBULIZER SET - MISCELLANEOUS DIRECTED DX J44.9 (COPD) DAILY TAKING BLOOD PRESSURE MONITOR - KIT DIRECTED TAKING CALCITRIOL 0.25 MCG CAPSULE 1 CAPSULE ORAL 4 X [id number] WITH DIALYSIS TAKING PROCRIT 66357 UNIT/ML SOLUTION INJECTION MONTHLY TAKING FISH OIL 1000 MG CAPSULE 1 CAP(S) ORALLY THREE TIMES A DAY TAKING PEN NEEDLES 31G X 5 MM ULTRA FINE 1 EACH INTRADERMALLY DIAG CODE 250.6 FOUR TIMES A DAY TAKING VITAMIN D (ERGOCALCIFEROL) 57252 UNIT CAPSULE 1 CAPSULE ORALLY ONCE A WEEK-WEDNESDAY TAKING BISOPROLOL FUMARATE 5 MG TABLET 1 TABLET ORALLY TWICE DAILY TAKING NOVOLOG 100 UNIT/ML SOLUTION DIRECTED SUBCUTANEOUS 7 UNITS BREAKFAST AND DINNER, 5 UNITS LUNCH TAKING GLUCAGON EMERGENCY 1 MG KIT DIRECTED INJECTION DAILY NEEDED TAKING LANTUS 100 UNIT/ML SOLUTION TWICE A DAY SUBCUTANEOUS 8 UNITS IN AM AND 5 UNITS AT BEDTIME TAKING NITROGLYCERIN 0.4 MG TABLET SUBLINGUAL DIRECTED SUBLINGUAL Q 5MIN X3 FOR CHEST PAIN TAKING ACETAMINOPHEN 500 MG TABLET 2 TABLETS NEEDED ORALLY EVERY 6 HOURS FOR PAIN MDD 3000MG TAKING BUMETANIDE 2 MG TABLET 1 TAB ORALLY DAILY, NOTES: BUMEX TAKING LIDOCAINE-PRILOCAINE 2.5-2.5 % CREAM DIRECTED EXTERNALLY TO PORT 3 TIMES WEEKLY PRIOR TO DIALYSIS, NOTES: COREEN TAKING TAMSULOSIN HCL 0.4 MG CAPSULE EXTENDED RELEASE 24 HOUR 1 CAPSULE 30 MINUTES AFTER THE SAME MEAL EACH DAY ORALLY ONCE A DAY, NOTES: FLOMAX TAKING MECLIZINE HCL 12.5 MG TABLET 2 TABLETS NEEDED ORALLY ONCE A DAY NEEDED FOR VERTIGO, NOTES: PRN TAKING PANTOPRAZOLE SODIUM 40 MG TABLET DELAYED RELEASE 1 TABLET ORALLY ONCE A DAY TAKING PROLIA 60 MG/ML SOLUTION PREFILLED SYRINGE DIRECTED SUBCUTANEOUS EVERY 6 MONTHS TAKING AZELASTINE HCL 137 MCG/SPRAY SOLUTION 1 SPRAY IN EACH NOSTRIL NASALLY DAILY TAKING COUMADIN 5 MG TABLET 8MG ORALLY DAILY TAKING PRAMIPEXOLE DIHYDROCHLORIDE 0.25 MG TABLET 1 TABLET ORALLY BID, NOTES: MIRAPEX TAKING CALCIUM ACETATE 667 MG CAPSULE 3 TAB ORALLY THREE TIMES A DAY TAKING BETAMETHASONE DIPROPIONATE AUG 0.05 % CREAM 1 APPLICATION EXTERNALLY TO ARMS, LEGS, AND TRUNK (LARGE AREA) BID TAKING ADVAIR HFA 230-21 MCG/ACT AEROSOL 2 PUFFS INHALATION TWICE A DAY TAKING ENTRESTO 24-26 MG TABLET 1 TABLET ORALLY TWICE A DAY TAKING ZOFRAN ODT 4 MG TABLET DISINTEGRATING 1 TABLET ON THE TONGUE AND ALLOW TO DISSOLVE ORALLY 3 TIMES A DAY NEEDED FOR NAUSEA TAKING PROVENTIL HFA 108 (90 BASE) MCG/ACT AEROSOL SOLUTION 2 PUFFS INHALATION EVERY 4 HOURS NEEDED TAKING FLONASE ALLERGY RELIEF 50 MCG/ACT SUSPENSION 2 SPRAYS IN EACH NOSTRIL NASALLY DAILY TAKING BUTRANS 20 MCG/HR PATCH WEEKLY 1 PATCH TO SKIN TRANSDERMAL APPLY 1 PATCH Q 7 DAYS MDD=1 TAKING GABAPENTIN 100 MG CAPSULE 1 CAPSULE ORALLY ONCE A DAY TAKING LIPITOR 40 MG TABLET 1 TABLET ORALLY ONCE A DAY TAKING ALBUTEROL SULFATE (2.5 MG/3ML) 0.083% NEBULIZATION SOLUTION 3 ML INHALATION EVERY 4 HRS NEEDED FOR SOB/WHEEZING TAKING MIRALAX - PACKET 1 PACKET MIXED WITH 8 OUNCES OF FLUID ORALLY TWICE DAILY TAKING HYDROCODONE-ACETAMINOPHEN 5-325 MG TABLET 1 TABLET NEEDED ORALLY EVERY 6 HRS MDD: 4 TABS NOT-TAKING ISOSORBIDE MONONITRATE ER 30 MG TABLET EXTENDED RELEASE 24 HOUR 1 TABLET ORAL ONCE A DAY NOT-TAKING PLAVIX 75 MG TABLET 1 TABLET ORALLY ONCE A DAY NOT-TAKING RENVELA 0.8 GM PACKET 1 PACKET MIXED WITH 30 ML OF WATER WITH MEALS ORALLY THREE TIMES A DAY NOT-TAKING WARFARIN SODIUM 5 MG TABLET TAKE 2 TABLETS BY MOUTH WEDNESDAY AND WEDNESDAY. 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 PRADO GORDON ON CPAP SUBCLINICAL HYPOTHYROIDISM 06/07 DIVERTICULOSIS 04/2019 KIDNEY DISEASE STAGE 4 REGURING DIALYSIS 4 TIMES WEEKLY L2 VERTERAE FX DERMATITIS HERPETIFORMIS L3 FRACTURE FLU/PNEUMONIA STROKE BILATERAL KNEE ALLERGIES ACTOS: EDEMA - SIDE EFFECTS DEMEROL: HIVES - ALLERGY DILANTIN: ANAPHYLAXIS - ALLERGY GLUCOPHAGE: RASH - ALLERGY LEVAQUIN: HEAD ACHE - SIDE EFFECTS PHENOBARBITAL: ANAPHYLAXIS - ALLERGY TEGRETOL: ANAPHYLAXIS - ALLERGY PENICILLIN (FOR ALLERGIES USE ONLY): HIVES - ALLERGY TRIPLE ANTIBIOTIC: FACIAL SWELLING - ALLERGY REQUIP: ELEVATED LIVER ENZYMES - ALLERGY LATEX (FOR ALLERGY USE ONLY): RASH - ALLERGY CRESTOR: HEADACHE LYRICA: DIDN'T WORK - SIDE EFFECTS CAPSACIN (TOPICALLY): EXCESSIVE BURNING - SIDE EFFECTS LISINOPRIL: RASH - SIDE EFFECTS GABAPENTIN: DIDN'T WORK - LACK OF THERAPEUTIC EFFECT DAPSONE: ANEMIA - SIDE EFFECTS NSAIDS: CONTRAINDICATION BEES: ANAPHYLAXIS - ALLERGY SOCIAL HISTORY GENERAL: TOBACCO USE ARE YOU A: NONSMOKER. LATEX QUESTIONNAIRE LATEX ALLERGY : HAVE YOU EVER DEVELOPED ANY TYPE OF REACTION AFTER HANDLING LATEX PRODUCTS SUCH RUBBER GLOVES, CONDOMS, DIAPHRAGMS, BALLOONS, SOCKS, OR UNDERWEAR?YES - PLEASE INDICATE :RUBBER GLOVES LATEX ALLERGY : HAVE YOU EVER DEVELOPED ANY TYPE OF REACTION DURING OR AFTER DENTAL APPOINTMENT, VAGINAL/RECTAL EXAMINATION, SURGICAL PROCEDURE, OR ANY OTHER EXPOSURE?NO LATEX RISK : HAVE YOU EVER HAD ANY DIFFICULTY BREATHING OR HIVES AFTER EATING OR HANDLING ANY FRUITS, OR VEGETABLES; SUCH KIWI, BANANAS, STONE FRUITS, OR CHESTNUTSNO LATEX RISK : DO YOU HAVE A PREVIOUS PERSONAL HISTORY OF MORE THAN NINE SURGERIES, SPINA BIFIDA, OR REPEATED CATHERIZATIONS? NO LATEX RISK : ARE YOU FREQUENTLY EXPOSED TO LATEX PRODUCTS IN YOUR OCCUPATION?NO DATE ASKED : 04/22/2021 ALCOHOL USE: NO. BMI CARE GOAL FOLLOW-UP ABOVE NORMAL BMI FOLLOW-UPDIETARY MANAGEMENT EDUCATION, GUIDANCE, AND COUNSELING ALCOHOL SCREENING DID YOU HAVE A DRINK CONTAINING ALCOHOL IN THE PAST YEAR?NO POINTS0 INTERPRETATIONNEGATIVE RECREATIONAL DRUG USE DRUG USE?NO CAFFEINE CAFFEINE USE?YES HOW OFTEN AND HOW MUCH? 2 CUPS COFFEE/DAY SEXUAL HX HAD SEX IN THE LAST 12 MONTHS (VAGINAL, ORAL, OR ANAL)?NO HAVE YOU EVER HAD AN STD?NO HIV / HEP-C SCREENING HIV TEST OFFERED TO PATIENT:YES DATE OFFERED:02/08/2017 TEST ACCEPTED:NO HEP-C TEST OFFERED TO PATIENT:YES DATE OFFERED:02/08/2017 REASON:PATIENT DECLINED TEST ACCEPTED:NO REASON:PATIENT DECLINED SIKHISM [id number] [employer] LANGUAGE LANGUAGES SPOKEN:LAO EDUCATION LEVEL OF EDUCATION:NOT FINISHED HIGH SCHOOL LEARNING BARRIERS / SPECIAL NEEDS CHANGE FROM LAST VISIT?YES BARRIERS TO LEARNING?NO HEARING IMPAIRED?YES :HEARING AIDES VISION IMPAIRED?YES COGNITIVELY IMPAIRED?NO READINESS TO LEARN?YES LEARNING PREFERENCES?YES :DEMONSTRATION/VERBAL INSTRUCTION LEARNING CAPABILITIES PRESENT?YES EMOTIONAL BARRIERS?YES COMMENTS COPD , DEPRESSION SPECIAL DEVICES?YES :CANE, WALKER, OTHER CPAP SENIOR ADMINISTRATIVE ASSOCIATE NEEDED?NO DOMESTIC VIOLENCE DO YOU FEEL SAFE IN YOUR ENVIRONMENT?YES OCCUPATION: DISABLED. DIET: NO ADDED SALT, LOW FAT, LOW CHOLESTEROL. EXERCISE: NONE. MARITAL STATUS: . OTHERS AT HOME: SPOUSE. TODAY'S VISITNOTES 02/26/2020 PATIENT DESCRIBES PAIN :ACHING, IT COMES AND GOES, OTHER CRAMPING - LEGS FROM 0-10, WHAT LEVEL IS YOUR PAIN TODAY?4 - PFS REFERRAL NEEDED?NO CLERGY REFERRAL NEEDED?NO PUBLIC HEALTH REFERRAL NEEDED?NO WAS THE PROVIDER NOTIFIED OF ANY PERTINENT INFO? N/A HAS THE PATIENT BEEN EDUCATED REGARDING HIS/HER PLAN OF CARE?YES HAS THE PATIENT BEEN EDUCATED REGARDING PAIN, THE RISK FOR PAIN, THE IMPORTANCE OF EFFECTIVE PAIN MANAGEMENT, AND THE PAIN ASSESSMENT PROCESS?YES HOUSING: OWNS HOME. ADVANCE DIRECTIVE ADVANCE DIRECTIVE DISCUSSED WITH PATIENT:YES HAS HCP [phone] DAUGHTER ELIZABETH VALLEJO [phone] SON PAM VALLEJO [phone] REVIEW OF SYSTEMS CONSTITUTIONAL: ANY RECENT FEVER NO . CHILLS NO . WEIGHT CHANGE OF UNKNOWN REASONS NO . GASTROENTEROLOGY: NEW UNEXPLAINABLE CHANGES IN BOWEL CONTROL NO . CONSTIPATION NO . GENITOURINARY: ANY NEW CHANGE IN BLADDER CONTROL? NO . NEUROLOGY: NEW ONSET DIZZINESS OR NEUROLOGICAL CHANGES NOT MENTIONED NO . NEW NUMBNESS OR PAIN PATTERNS NOT MENTIONED AND PERTINENT TO TODAY'S VISIT NO . CARDIOLOGY: NEW CHEST PRESSURE NO . PATIENT DENIES NO . RESPIRATORY: UNEXPLAINABLE COUGH NO . NEW SHORTNESS OF BREATH NO . VITAL SIGNS WT 183.8 LBS, HT 69 IN, BMI 27.14 INDEX, BP 170/71 MM HG, REPEAT BP 170/70 MM HG, HR 58 /MIN, RR 18 /MIN, TEMP 97.2 F, OXYGEN SAT % 98%, SAFE IN ENV? (Y/N) YES, NA INITIALS RI 10:52T.ESE MA, PATIENT STATED THAT SHE WOULD SCHEDULE HIM TO SEE SOMEONE ABOUT HIS BLOOD PRESSURE. EXAMINATION GENERAL EXAMINATION: GENERALAWAKE,ALERT ,PLEASANT . PSYCHAFFECT NORMAL . LUNGS:LUNG TITUS ARE CLEAR TO AUSCULTATION BILATERALLY. GOOD MOVEMENT OF AIR . HEART:S1, S2 IN A REGULAR RATE AND RHYTHM. NO SIGNIFICANT MURMURS, RUBS OR GALLOPS NOTED . ASSESSMENTS CHRONIC PRESCRIPTION OPIATE USE - Z79.891 (PRIMARY) DIABETIC PERIPHERAL NEUROPATHY - E11.42 TREATMENT CHRONIC PRESCRIPTION OPIATE USE REFILL BUTRANS PATCH WEEKLY, 20 MCG/HR, 1 PATCH TO SKIN, TRANSDERMAL, APPLY 1 PATCH Q 7 DAYS MDD=1, 30 DAYS, 4, REFILLS 5 REFILL GABAPENTIN CAPSULE, 100 MG, 1 CAPSULE, ORALLY, ONCE A DAY, 30 DAYS, 30 CAPSULE, REFILLS 5 PROCEDURE CODES FA211 ESTABILISHED PATIENT [facility] CHARGE DISPOSITION & COMMUNICATION FOLLOW UP 3 MONTHS (REASON: MED MGMNT/UTOX) ELECTRONICALLY SIGNED BY JORGE HERRERA ON 04/23/2021 AT 02:10 PM EDT DISCLAIMER : THIS IS A VISIT SUMMARY EXTRACTED FROM THE [employer] CHART. IT IS NOT A COPY OF THE [employer] PROGRESS NOTE. JOVANNA
== END ==
LOC: M PAIN 11:00
PROVIDERS: ATTEND Nurse Practitioner Family
DX: E11.42 Type 2 diabetes mellitus with diabetic polyneuropathy (principal); I87.2 Venous insufficiency (chronic) (peripheral); E78.5 Hyperlipidemia, unspecified; I10 Essential (primary) hypertension; J44.9 Chronic obstructive pulmonary disease, unspecified; F32.9 Major depressive disorder, single episode, unspecified; K21.9 Gastro-esophageal reflux disease without esophagitis; G25.81 Restless legs syndrome; K90.0 Celiac disease; G47.33 Obstructive sleep apnea (adult) (pediatric); E02 Subclinical iodine-deficiency hypothyroidism; N18.4 Chronic kidney disease, stage 4 (severe); Z79.891 Long term (current) use of opiate analgesic; Z79.4 Long term (current) use of insulin; Z79.01 Long term (current) use of anticoagulants; Z79.899 Other long term (current) drug therapy; Z86.718 Personal history of other venous thrombosis and embolism; Z88.1 Allergy status to other antibiotic agents; Z88.0 Allergy status to penicillin; Z88.8 Allergy status to other drugs, medicaments and biological substances; Z88.6 Allergy status to analgesic agent; Z91.030 Bee allergy status

== ENCOUNTER 2021-09-27 15:15 | Emergency (ER) | payer MEDICAID, MEDICARE ==
[~2021-09-27] VITALS: Ht 175.3 cm; Wt 77.3 kg
[~2021-09-27 15:15] MED LIST changes: -CYMB60CA3 PO; +CYMB60CA4 PO
--- OUTSIDE RECORDS SUMMARY | 2021-09-27 15:20 | CCD ---
Author Author [facility] Organization [facility] Address Unknown Phone Unavailable Care Team Providers Care Football Scout Name Role Phone Crescencio Pelletier Unavailable PROBLEMS Type Condition ICD9-CM Code [id number] Code Onset Dates Condition S tatus W/U Status Risk SNOMED Code Notes Problem Allergic rhinitis, unspecifi ed allergic rhinitis trigger, unspecified rhinitis seasonality J30.9 Active confirmed 24904340 Problem Diabetic peripheral neuropathy E11.42 Active confir med 690137366 Problem Chronic prescription opiate use Z79.891 Active confirmed 280094911 Problem COPD exacerbation J44.1 Active confirmed 19 4527493 Problem Anemia of chronic disease D63.8 Active confirmed 934532506 Problem Chronic kidney disease N18.9 Active confirmed 421320316 Problem [facility] (current) use of anticoagulants Z79.01 Active confirmed 395275603 Problem [facility] current use of anticoagulant Z79.01 A ctive confirmed 282354714 Problem Mixed hyperlipidemia E78.2 Active confirmed 031462821 Problem Frontal sinusitis, unspecified chronicity J32.1 Active confirmed 81001709 Problem Essential (primary) hypertension I10 Active conf irmed 34770727 Problem Chronic obstructive pulmonary disease, unspecified COPD ty pe J44.9 Active confirmed 67519678 Problem Anemia in other chronic diseases classified elsewhere D63.8 Active confirmed 432990853 Problem 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 Active confirmed 33185096 Problem Insomnia G47.00 Active confirmed 232440828 Problem Vitamin D deficiency E55.9 Active confirmed 55150415 Problem Gastroesophageal reflux disease without esophagitis K21.9 Active confirmed 722699438 Problem Gastroesophageal reflux disease, esophagitis pre sence not specified K21.9 Active confirmed 966441762 Problem Iron deficiency anemia, unspecified D50.9 Acti ve confirmed 22957383 Problem Celiac disease K90.0 Active confirmed 59717 1005 Problem Encounter for therapeutic drug level monitoring Z5 1.81 Active confirmed 490917896 Problem Low back pain M54.5 Active confirmed 799010 009 Problem Hx of deep venous thrombosis Z86.718 Active confirm ed 891477199 Problem Globus sensation F45.8 Active confirmed 888 02011 Problem Essential hypertension, hypertension with unspecified goal I10 Active confirmed 37088612 Problem Hearing loss, unspecified hearing loss type, uns pecified laterality H91.90 Active confirmed 20949337 Problem DM2 (diabetes mellitus, type 2) E11.9 Active confi rmed 61928821 Problem Esophageal dysphagia R13.10 Active confirmed 60345385 Problem Dependence on renal dialysis Z99.2 Active confirme d 801439315 Problem End stage renal disease N18.6 Active confirmed 071443295 Problem Other chronic pain G89.29 Active confirmed 8 0562493 Problem Restless legs syndrome G25.81 Active confirmed 60270050 Problem Major depressive disorder, single episode, unspecified F32.9 Active confirmed 24043994 Problem Anemia D64.9 Active confirmed 592877361 Problem Chronic obstructive pulmonary disease, unspecified J44.9 Active confirmed 24121389 Problem Situational mixed anxiety and depressive disorder F43.23 Active confirmed 890323857 Problem Chronic right-sided heart failure I50.812 Active confirmed 70674693 Problem Type 2 diabetes 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, unspecified CKD stage, unspecified whether detention insulin use E11.22 Active confirmed 31721281 Problem Pulmonary hypertension I27.20 Active confirmed 14476059 Problem Situational depression F43.21 Active confirmed 05709117 ALLERGIES Allergen (clinical drug ingredient) Drug/Non Drug Allergy do cumented on EMR Reaction Allergy Type Onset Date Status Requip elevated liver enzymes Drug Allergy Active capsacin (topically) excessive burning Non Drug Allergy Active bacitracin / neomycin / polymyxin B Triple Antibiotic(NDC Co de:[address]-38) facial swelling Drug Allergy Active lisinopril Lisinopril(NDC Code:[address]-88) rash Drug Allergy Active phenytoin Dilantin(ND Code:[address]-04) Anaphylaxis Drug Allergy Active meperidine Demerol(HIC Code:[address]-11) Hives Drug Allergy Active Latex Latex rash Drug Allergy Active Levaquin HEAD ACHE Drug Allergy Active carbamazepine Tegretol(ND Code:[address]-64) Anaphylaxis Drug Aller gy Active Glucophage Rash Drug Allergy Active Tolmetin NSAIDs Unknown Drug Allergy Active dapsone Dapsone(NDC Code:[address]-79) anemia Drug Allergy Active rosuvastatin Crestor(ND Code:[address]-99) headache Drug Allergy Active Bee Sting Anaphylaxis Drug Allergy Active gabapentin Gabapentin(NDC Code:[address]-95) didn't work Drug Allerg y Active phenobarbital Phenobarbital([facility] Code:[address]-59) Anaphylaxis Drug Allergy Active pioglitazone Actos([facility] Code:[address]-45) EDEMA Drug Allergy Active Penicillin (For Allergies Use Only) hives Drug Allerg y Active pregabalin Lyrica([facility] Code:[address]-03) didn't work Drug Allergy Active ENCOUNTERS from 1950 to 2021-09-23 Encounter Location Date Provider Diagnosis [facility] [address] [phone] [place] [address] Aug, Crescencio Pelletier IMMUNIZATIONS Vaccine Route Administration Date Status Pneumococcal Adult 0.5mL Pneumovax 23 IM Intramuscular Jul 14, 2017 Administered Pneumococcal 0.5mL Prevnar 13 IM Intramuscular Oct 09, 2014 A dministered Influenza 6mo & up Fluzone IM Intramuscular Jul 06, 2016 Admi nistered Influenza 6mo & up Fluzone IM Intramuscular Jul 19, 2015 Admi nistered Influenza 6mo & up Fluzone IM Intramuscular Oct 09, 2014 Admi nistered Influenza 6mo & up Fluzone IM Intramuscular Jul 27, 2013 Admi nistered Influenza (High Dose 65 & up) IM Intramuscular Aug 06, 2017 A dministered Influenza 6mo & up Fluzone IM Intramuscular Aug 02, 2012 Admi nistered Influenza 18 yrs & older Flublok IM Intramuscular Aug 09, 2018 Administered Influenza 6mo & up Fluzone IM Intramuscular Jul 13, 2011 Admi nistered Influenza 6mo & up Fluzone IM Intramuscular Aug 27, 2010 Admi nistered SOCIAL HISTORY Sex Assigned At : Social History Observation Description Sex Assigned At Unknown Education: Question Answer Notes Level of Education: Not finished High School Audit Question Answer Notes Total Score: 0 Interpretation: Alcohol Education Language: Question Answer Notes Languages spoken: Polish Denominational: Question Answer Notes Denominational 03 Yarsanism Sexual Hx: Question Answer Notes Had sex in the last 12 months (vaginal, oral, or anal)? No Have you ever had an STD? No Drug and Alcohol Question Answer Notes Total Score: 0 Interpretation: No problems reported Alcohol Screening: Question Answer Notes Did you have a drink containing alcohol in the past year? No Points 0 Interpretation Negative BMI Care Goal Follow-Up Question Answer Notes Above Normal BMI Follow-Up Dietary management educatio n, guidance, and counseling REASON FOR REFERRAL No Information VITAL SIGNS No information MEDICATIONS Medication SIG (Take, Route, Frequency, Duration) Notes Start Da te End Date Status hydrOXYzine HCl 50 MG 1 tablet as needed Orally fo ur times daily as needed for itching for 30 day(s) three times a day Apr, Not-Taki ng Isosorbide Mononitrate ER 30 MG 1 tablet Oral Once a day Not-Taking Acetaminophen 500 MG 2 tablets as needed Orally e very 6 hours for pain MDD 3000mg Nov, Active Bisoprolol Fumarate 5 MG 1 tablet Orally twice daily Active Calcium Acetate 667 MG 3 tab Orally Three times a day Active Bumetanide 2 MG 1 tab Orally Daily BUMEX Nov, Active Gabapentin 100 MG 1 capsule Orally Once a day for 30 Days Apr, Active Azelastine HCl 137 MCG/SPRAY 1 spray in each nostril Nasally Daily for 30 days Apr, Active Tamsulosin HCl 0.4 MG 1 capsule 30 minutes after t he same meal each day Orally Once a day FLOMAX Active Nitroglycerin 0.4 MG as directed Sublingual Q 5min X3 for chest pain Active Warfarin Sodium 5 MG TAKE 2 TABLETS BY MOUTH AND WEDNESDAY. 1 AND 1/2 TABLETS BY MOUTH WEDNESDAY, WEDNESDAY, WEDNESDAY, WEDNESDAY AND WEDNESDAY for 90 Not-Taking Meclizine HCl 12.5 MG 2 tablets as needed Orally O nce a day as needed for vertigo prn Jul, Active Lipitor 40 mg 1 tablet Orally Once a day for 90 days Active Vitamin D (Ergocalciferol) 07101 UNIT 1 capsule Orally once a week-Mo nday Active Lantus 100 UNIT/ML twice a day Subcutaneous 8 u nits in am and 5 units at bedtime Active NovoLOG 100 UNIT/ML as directed Subcutaneous 7 u nits breakfast and dinner, 5 units lunch Active Prolia 60 MG/ML as directed Subcutaneous every 6 months Active Renvela 0.8 GM 1 packet mixed with 30 ml of water with meals Orally Three times a day for 30 day(s) Not-Taking Albuterol Sulfate (2.5 MG/3ML) 0.083% 3 ml Inhalation every 4 hrs as needed for SOB/wheezing for 90 day(s) Activ e MiraLax - 1 packet mixed with 8 ounces of fluid or ally twice daily for 30 days Active Advair HFA 230-21 MCG/ACT 2 puffs Inhalation Twice a day for 30 Active Butrans 20 MCG/HR 1 patch to skin Transdermal Apply 1 patch q 7 days MDD=1 for 30 Days Jan, Active Coumadin 5 MG 8mg Orally Daily Activ e Pramipexole Dihydrochloride 0.25 MG 1 tablet Orally bid for 30 d ays MIRAPEX Jul, Active Pen [place] 31G X 5 MM 1 each intradermally diag co de 250.6 four times a day for 90 day(s) Jul, Active Betamethasone Dipropionate Aug 0.05 % 1 application Ex ternally to arms, legs, and trunk (large area) bid for 30 Days Active Lidocaine-Prilocaine 2.5-2.5 % as directed Externally to port 3 times weekly prior to dialysis COREEN Nov, Active Fish Oil 1000 MG 1 cap(s) Orally three times a day Active Blood Pressure Monitor - as directed for 99 months Sep, Active Pantoprazole Sodium 40 MG 1 tablet Orally Once a day for 30 day(s) Active Plavix 75 MG 1 tablet Orally Once a day for 30 day(s) Not-Taking Glucagon Emergency 1 MG as directed Injection daily as needed Dec, Active Flonase Allergy Relief 50 MCG/ACT 2 sprays in each nos tril Nasally Daily for 30 days Active Full Kit Nebulizer Set - as directed dx J44.9 (COPD) Daily for 9 9 months Jan, Active Proventil HFA 108 (90 Base) MCG/ACT 2 puffs Inhalation every 4 hours as needed for 90 days Active Entresto 24-26 MG 1 tablet Orally Twice a day for 30 day(s) Active HYDROcodone-Acetaminophen 5-325 MG 1 tablet as needed Orally every 6 hrs MDD: 4 tabs for 30 days Jul, Active Calcitriol 0.25 MCG 1 capsule Oral 4 X [id number]-- with dialysis Active Fluticasone Furoate 50 MCG/ACT 2 puffs Inhalation Once a day for 30 d ays Active Zofran ODT 4 MG 1 tablet on the tongue and a llow to dissolve Orally 3 times a day as needed for nausea for 30 days Active Procrit 31616 UNIT/ML Injection monthly Active PROCEDURES No Information RESULTS No Results REASON FOR VISIT refill MEDICAL (GENERAL) HISTORY Type Description Date Medical History DVT CHRONIC PHLEBITIS Medical History CHRONIC VENOUS INSUFFICIENCY Medical History PERIPHERAL NEUROPATHY Medical History TYPE 2 DIABETES--Dr Amisha Grace Medical History HYPERLIPIDEMIA Medical History HTN Medical History COPD Medical History HX OF DEPRESSION Medical History DDD/DJD Medical History GERD Medical History 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 Grace Medical History GORDON on CPAP Medical History subclinical hypothyroidism 06/07 Medical History diverticulosis Medical History 04/2019 Kidney Disease stage 4 reguring dialysis 4 times weekly Medical History L2 verterae fx Medical History Dermatitis herpetiformis Medical History L3 fracture Medical History Flu/Pneumonia Medical History Stroke Medical History BILATERAL KNEE Surgical History Cervical spine fusion 06/2003 Surgical History L arm break repair 11/1981 Surgical History R leg break Repair 02/1982 Surgical History colonsocopy (adenomatous polyp 2009) 200 4,2010 Surgical History EGD 2009 Surgical History Endoscopy and colonoscopy 2015Dec 13 Surgical History fistual placed in right arm 2018 Surgical History 2 stents placed in LAD 05/2019 Surgical History left cataract-Dr. Lim 10/2020 Hospitalization History Cervical Spine Fusion Sx 06/2003 Hospitalization History L arm break reapir Sx 11/1981 Hospitalization History R leg break repair Sx 02/1982 Hospitalization History Pneumonia 03/2009 Hospitalization History Bowel Impaction 09/2009 Hospitalization History Kindey Failure 02/2017 Hospitalization History CHF 01/2019 Hospitalization History Stents 05/2019 Hospitalization History Flu - Also discovered stroke on CT Hospitalization History Pneumonia 11/2019 Goals Section No Information Health Concerns No Information MEDICAL EQUIPMENT No Information MENTAL STATUS No Information FUNCTIONAL STATUS No Information ASSESSMENTS No Information PLAN OF TREATMENT Medication Medication Name Sig Start Date Stop Date Fluticasone Furoate 50 MCG/ACT 2 puffs Inhalation Once a day for 30 days HYDROcodone-Acetaminophen 5-325 MG 1 tablet as needed Orally every 6 hrs MDD: 4 tabs for 30 days Jul, Next Appt Details Provider Name:Gianni Polo, 2021-10-02 09:30:00 AM, [address] [place] [address], , [place], [address], Insurance Providers Payer Name Payer Address Payer Phone Insured Name Patient Relati onship to Insured Coverage Start Date Coverage End Date MEDICARE COMPLETE [facility] [address] [facility] [phone] YOVANI VALLEJO self MEDICAID [facility] dondeEsta™ [address] [facility] [id number] YOVANI VALLEJO self
--- OUTSIDE RECORDS SUMMARY | 2021-09-27 15:20 | CCD ---
Author Author [facility] Organization [facility] Address Unknown Phone Unavailable Care Team Providers Care Nurse Esthetician Name Role Phone Crescencio Pelletier Unavailable PROBLEMS Type Condition ICD9-CM Code SYE76-DL Code Onset Dates Condition S tatus W/U Status Risk SNOMED Code Notes Problem Allergic rhinitis, unspecifi ed allergic rhinitis trigger, unspecified rhinitis seasonality J30.9 Active confirmed 35893510 Problem Diabetic peripheral neuropathy E11.42 Active confir med 918331209 Problem Chronic prescription opiate use Z79.891 Active confirmed 404054612 Problem COPD exacerbation J44.1 Active confirmed 19 1793952 Problem Anemia of chronic disease D63.8 Active confirmed 960700981 Problem Chronic kidney disease N18.9 Active confirmed 274359182 Problem [facility] care (current) use of anticoagulants Z79.01 Active confirmed 425049382 Problem senior care current use of anticoagulant Z79.01 A ctive confirmed 177162102 Problem Mixed hyperlipidemia E78.2 Active confirmed 560129473 Problem Frontal sinusitis, unspecified chronicity J32.1 Active confirmed 79733073 Problem Essential (primary) hypertension I10 Active conf irmed 83045621 Problem Chronic obstructive pulmonary disease, unspecified COPD ty pe J44.9 Active confirmed 33887063 Problem Anemia in other chronic diseases classified elsewhere D63.8 Active confirmed 163859804 Problem 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 Active confirmed 67045934 Problem Insomnia G47.00 Active confirmed 060241467 Problem Vitamin D deficiency E55.9 Active confirmed 80721379 Problem Gastroesophageal reflux disease without esophagitis K21.9 Active confirmed 343077591 Problem Gastroesophageal reflux disease, esophagitis pre sence not specified K21.9 Active confirmed 395552116 Problem Iron deficiency anemia, unspecified D50.9 Acti ve confirmed 70912825 Problem Celiac disease K90.0 Active confirmed 09553 1005 Problem Encounter for therapeutic drug level monitoring Z5 1.81 Active confirmed 394245551 Problem Low back pain M54.5 Active confirmed 083288 009 Problem Hx of deep venous thrombosis Z86.718 Active confirm ed 770225523 Problem Globus sensation F45.8 Active confirmed 888 97683 Problem Essential hypertension, hypertension with unspecified goal I10 Active confirmed 57336421 Problem Hearing loss, unspecified hearing loss type, uns pecified laterality H91.90 Active confirmed 55614811 Problem DM2 (diabetes mellitus, type 2) E11.9 Active confi rmed 65201686 Problem Esophageal dysphagia R13.10 Active confirmed 06155603 Problem Dependence on renal dialysis Z99.2 Active confirme d 940161903 Problem End stage renal disease N18.6 Active confirmed 429832568 Problem Other chronic pain G89.29 Active confirmed 8 2859953 Problem Restless legs syndrome G25.81 Active confirmed 77293048 Problem Major depressive disorder, single episode, unspecified F32.9 Active confirmed 51730505 Problem Anemia D64.9 Active confirmed 905396516 Problem Chronic obstructive pulmonary disease, unspecified J44.9 Active confirmed 49892938 Problem Situational mixed anxiety and depressive disorder F43.23 Active confirmed 013683512 Problem Chronic right-sided heart failure I50.812 Active confirmed 67345618 Problem Type 2 diabetes 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, unspecified CKD stage, unspecified whether group home insulin use E11.22 Active confirmed 72723573 Problem Pulmonary hypertension I27.20 Active confirmed 69868769 Problem Situational depression F43.21 Active confirmed 71932743 ALLERGIES Allergen (clinical drug ingredient) Drug/Non Drug Allergy do cumented on EMR Reaction Allergy Type Onset Date Status Requip elevated liver enzymes Drug Allergy Active capsacin (topically) excessive burning Non Drug Allergy Active bacitracin / neomycin / polymyxin B Triple Antibiotic(NDC Co de:[address]-86) facial swelling Drug Allergy Active lisinopril Lisinopril(NDC Code:[address]-96) rash Drug Allergy Active phenytoin Dilantin(ND Code:[address]-06) Anaphylaxis Drug Allergy Active meperidine Demerol([facility] Code:[address]-95) Hives Drug Allergy Active Latex Latex rash Drug Allergy Active Levaquin HEAD ACHE Drug Allergy Active carbamazepine Tegretol(ND Code:[address]-67) Anaphylaxis Drug Aller gy Active Glucophage Rash Drug Allergy Active Tolmetin NSAIDs Unknown Drug Allergy Active dapsone Dapsone(NDC Code:[address]-92) anemia Drug Allergy Active rosuvastatin Crestor(ND Code:[address]-30) headache Drug Allergy Active Bee Sting Anaphylaxis Drug Allergy Active gabapentin Gabapentin([facility]C Code:[address]-89) didn't work Drug Allerg y Active phenobarbital Phenobarbital([facility] Code:[address]-22) Anaphylaxis Drug Allergy Active pioglitazone Actos([facility] Code:[address]-58) EDEMA Drug Allergy Active Penicillin (For Allergies Use Only) hives Drug Allerg y Active pregabalin Lyrica([facility] Code:[address]-93) didn't work Drug Allergy Active ENCOUNTERS from 1950 to 2021-09-23 Encounter Location Date Provider Diagnosis [facility] [address] [facility] [phone] [place] [address] Aug, Crescencio Pelletier IMMUNIZATIONS Vaccine Route Administration [...] Education Language: Question Answer Notes Languages spoken: Sinhala Adventism: Question Answer Notes Adventism 03 Christian Sexual Hx: Question Answer Notes Had sex [...] for 90 days Active Vitamin D (Ergocalciferol) 81891 UNIT 1 capsule Orally once a week-Mo [...] 30 d ays MIRAPEX Jul, Active Pen [place] 31G X 5 MM 1 each intradermally [...] 0.25 MCG 1 capsule Oral 4 X eysi-B-T-- with dialysis Active Fluticasone Furoate 50 MCG/ACT 2 puffs Inhalation Once a day for 30 d ays Active Zofran ODT 4 MG 1 tablet on the tongue and a llow to dissolve Orally 3 times a day as needed for nausea for 30 days Active Procrit 25431 UNIT/ML Injection monthly Active PROCEDURES No Information [...] Details Provider Name:Gianni Polo, 2021-10-02 09:30:00 AM, [address], , [place], [address], Insurance Providers Payer Name Payer Address Payer Phone Insured Name Patient Relati onship to Insured Coverage Start Date Coverage End Date MEDICAID [employer] [address] [facility] [id number] YOVANI VALLEJO self MEDICARE COMPLETE [facility] [address] [address] [facility] [id number] YOVANI VALLEJO self
--- OUTSIDE RECORDS SUMMARY | 2021-09-27 15:20 | CCD | Continuity of Care Document ---
Author Author Nile PRADO MD Organization Unknown Address [address] [place] [id number] Phone [phone] Care Team Providers Care Entry Level Finance Name Role Phone Pearl Ramirez MD AUTM [phone] Danny Pat MD AUTM [phone] Problems Active Problems Provider Date Type II diabetes mellitus uncontrolled Dacia Prado MD O nset: 08/11/2011 Essential hypertension Dacia Prado MD Onset: 08/11/2011 Celiac disease Dacia Prado MD Onset: 08/11/2011 Mixed hyperlipidemia Dacia Prado MD Onset: 08/11/2011 Disorder of kidney due to diabetes mellitus Dacia Prado MD Onset: 08/11/2011 Disorder of nervous system due to diabetes mellitus Dacia Prado MD Onset: 08/11/2011 Streptococcus Pneumonia & Influenz Vaccination & Inocu lation Dacia Prado MD Onset: 08/08/2013 Hypoglycemia Dacia Prado MD Onset: 11/05/2014 Type 2 diabetes mellitus Dacia Prado MD Onset: 02/12/20 15 Symptom of skin and integumentary tissue Dacia Prado MD Onset: 02/11/2015 Multiple complications due to diabetes mellitus Dacia glover MD Onset: 02/11/2015 Type 2 diabetes mellitus with diabetic polyneuropathy Santos Prado MD Onset: 11/28/2015 Hypoglycemic event due to diabetes Dacia Prado MD Onset : 11/28/2015 Chronic kidney disease stage 4 Seema Butler PA-C On set: 07/09/2016 Long-term current use of insulin Seema Butler PA-C Onset: 07/09/2016 Social History Type Date Description Comments Sex Unknown Cigarette Use Quit Tobacco Use Start: Unknown End: Unknown Patient is a former smoker Smoking Status Reviewed: 02/25/21 Patient is a former smoker Allergies and adverse reactions Active Allergies Criticality Reaction | Severity Comments Date Phenobarbital Unable to assess criticality Rash 12/04/2009 Medications Active Medications SIG Qnty Indications Ordering Provide r Date BD Pen Needle/Mini/Ultra-Fine/31G X 5mm 31G X 5 mm Misc use as directed four times daily. 400units Candy Licona NP 05/26/2021 Onetouch Verio Strips use as directed up to 4 x daily 400units E11.649 Candy Licona NP 0 Prolia 60mg/ml Soln Prefill Syring e started january 2020 Dacia Prado MD 0 Lantus Solostar 100U nit/ML Solution Pen-Inject inject as directed subcutaneous* maximum daily dose is 16 units* 15units Dacia Prado MD 07/05/2019 Humalog Kwikpen 100U nit/ML Solution Pen-Inject use as directed three times daily mdd 30 units 30ml Candy Licona NP 04/05/2019 BD Pen Needle/Mini/Ultrafine/31G X 3/16" 31G X 5 mm Misc use as directed 4 x daily 120units Dacia goldman MD 07/11/2018 Bumetanide 2mg Tablets 1 b y mouth daily Unknown Meclizine HCL 25mg Tablets 1 by mouth as needed for dizziness every 12 hours Unknown Bisoprolol Fumarate 5mg Tablets 1 by mouth daily Unknown Calcitriol 0.25mcg Capsules 1 by mouth on dialysis days Unknown Emla 2.5-2.5% apply avf site 30 mins before hd Unknown Advair HFA 230-21mcg/Act Aerosol twice daily Unknown Hydrocodone Bitartrate/Acetaminophen 5-325mg Tablets 1 tab by mouth every 6 hours prn/pain Unk nown Arnuity Ellipta 50mcg/Act Aerosol 1 puff daily Unknown Pramipexole Dihydrochloride 0.125mg Tablets 2 by mouth three times daily Unknown Clonazepam 0.5mg Tablets 1 by mouth daily Unknown Donepezil HCL 10mg Tablets 1 by mouth daily Unknown Gabapentin 100mg Capsules 1 by mouth one time a day Unknown Fish Oil 1000mg Capsules 1 by mouth three times daily Unknown Aspirin 81mg Tablets DR 1 by mouth every day Unknown Nitroglycerin 0.4mg Tablets Sub 1 by mouth every 5 minutes for up to 3 doses as needed for chest pain. Unknown Melatonin 10mg Capsules 1 cap by mouth every night Unknown Clobetasol Propionate 0.05% Cream use as directed to affected areas Unknown Flonase 50mcg/Act Suspension 1 puff each nostril qd Unknown Lipitor 40mg Tablets 1 po qd Unknown Drisdol 44645Unpv Capsules 1 tab by mouth weekly Unknown Albuterol Sulfate (2 .5mg/3ML) 0.083% Nebulizer bid Unknown Butrans 20mcg/HR Patches Weekly change weekly Unknown Miralax 3350NF Powder two sierra es a day Unknown Proventil HFA 108(90Base) mcg/Act Aerosol Unknown Tamsulosin HCL 0.4mg Capsules 1 by mouth every day Unknown Calcium Acetate 667mg Tablets 1 by mouth on dialysis days Unknown Zofran 4mg Tablets one by mouth every 8 hours as needed for nausea Unknown Glucagon Emergency 1mg Kit use as directed for hypoglycemia 2units Candy Licona NP 00 Ferrous Sulfate 325(65Fe) mg Table ts 1 by mouth every day Unknown Triamcinolone Acetonide 0.5% Ointm ent as directed prn Unknown Warfarin Sodium 10mg Tablets 1 by mouth daily Unknown Entresto 24-26mg Tablets 1 by mouth daily Pearl Ramirez MD Trazodone HCL 100mg Tablets Take 1 Tablet By Mouth AT Bedtime Unknown Medications Administered in Office Medication SIG Qnty Indications Ordering Provider Date Pat FORD#[id number] (60mg Syringe)1MG Injection Dacia Prado MD 09/02/20 Pat FORD#[id number] (60mg Syringe)1MG Injection Dacia Prado MD 02/26/20 Pat SEGUNDOC#[id number] (60mg Syringe)1MG Injection Dacia Prado MD 08/27/20 Pat FORD#[id number] (60mg Syringe)1MG Injection Dacia Prado MD 02/20/20 Immunizations Description No Information Available Vital Signs Date Vital Result Comment 09/02/2021 3:30pm BP Systolic 124 mmHg BP Diastolic 62 mmHg Heart Rate 65 /min Height 68.25 inches 5'8.25" Weight 185.00 lb BMI (Body Mass Index) 27.9 kg/m2 O2 % BldC Oximetry 96 % 06/10/2021 9:54am BP Systolic 126 mmHg BP Diastolic 60 mmHg Heart Rate 54 /min Height 68.25 inches 5'8.25" Weight 184.31 lb BMI (Body Mass Index) 27.8 kg/m2 O2 % BldC Oximetry 98 % Results Test Acquired Date Facility Test Result H/L Range Note Laboratory test finding 09/02/2021 In House Glucose 378 Hemoglobin A1c 8.6 Procedures Date Code Description Status 09/02/2021 42366 Injec Therapeutic Or Diagnostic Subcut Or Intramuscular Completed 09/02/2021 89583 Office/Outpatient Established Hi gh MDM 40-54 Min Completed 09/02/2021 83361 Amb Glucose Monitoring Interpret ation And Report Completed 08/26/2021 705324129 Diabetic Foot Exam Completed 06/10/2021 70708 Office/Outpatient Established Mo d MDM 30-39 Min Completed 06/10/2021 90004 Amb Glucose Monitoring Interpret ation And Report Completed Medical Devices Description No Information Available Encounters Type Date Location Provider Dx Diagnosis Office Visit 09/02/2021 3:15p DR. Dacia Prado MD E 11.22 Type 2 diabetes mellitus w diabetic chronic kidney disease N18.4 Chronic kidney disease, stag e 4 (severe) M81.0 Age-related osteoporosis w/o current pathological fracture D64.9 Anemia, unspecified Z79.4 manager intermediate (current) use of i nsulin E55.9 Vitamin D deficiency, unspec ified Z87.310 Personal history of (healed) osteoporosis fracture Office Visit 06/10/2021 10:00a DR. Dacia Prado MD E 11.22 Type 2 diabetes mellitus w diabetic chronic kidney disease N18.4 Chronic kidney disease, stag e 4 (severe) M81.0 Age-related osteoporosis w/o current pathological fracture D64.9 Anemia, unspecified Z79.4 manager intermediate (current) use of i nsulin E55.9 Vitamin D deficiency, unspec ified Z87.310 Personal history of (healed) osteoporosis fracture Assessments Date Code Description Provider 09/02/2021 E11.22 Type 2 diabetes mellitus with di abetic chronic kidney disease Dacia Prado MD 09/02/2021 N18.4 Chronic kidney disease, stage 4 (severe) Dacia Prado MD 09/02/2021 M81.0 Age-related osteoporosis without current pathological fracture Dacia Prado MD 09/02/2021 D64.9 Anemia, unspecified Dacia glover MD 09/02/2021 Z79.4 manager intermediate (current) use of insul in Dacia Prado MD 09/02/2021 E55.9 Vitamin D deficiency, unspecifie d Dacia Prado MD 09/02/2021 Z87.310 Personal history of (healed) ost eoporosis fracture Dacia Prado MD 06/10/2021 E11.22 Type 2 diabetes mellitus with di abetic chronic kidney disease Dacia Prado MD 06/10/2021 N18.4 Chronic kidney disease, stage 4 (severe) Dacia Prado MD 06/10/2021 M81.0 Age-related osteoporosis without current pathological fracture Dacia Prado MD 06/10/2021 D64.9 Anemia, unspecified Dacia Adair glover MD 06/10/2021 Z79.4 senior living (current) use of insul in Dacia Prado MD 06/10/2021 E55.9 Vitamin D deficiency, unspecifie d Dacia Prado MD 06/10/2021 Z87.310 Personal history of (healed) ost eoporosis fracture Dacia Prado MD Plan of Treatment Future Appointment(s):* 03/03/2022 2:30 pm - Dacia Prado MD at DR. Dacia Prado 09/02/2021 - Dacia Prado MD* E11.22 Type 2 diabetes mellitus with diabetic chronic kidney disease* Comments:* Patient is on hemodialysis. M/W/F in office A1c= 8.6% [id number]=406 ( Non dialysis afternoon)04/2021, hemoglobin and hematocrit = 1133Creatinine = 9.0, PTH = 304, glucose = 171LDL = 61, HDL = 29, triglycerides = 155A1c = 8.6%01/2021: A1c = 8.3%, 02/03/2021.prior A1c April=6.4% 6.4%. 6.3% (6.3%, 6.5%, 7.4% ) Meter Download- Now using the [employer] Gagandeep.Time in range, only 28% He has not been scanning before bedtime so there is missing data. But in general very high at night. Almost never in the normal range.Current insulin doses: Lantus 10 units qam, 10 units qhs, Humalog- units with meals. Recommendations:#1: Despite long history of diabetes he has a very poor understanding of his sliding sca le.Refused to meet with CDE- stating he sees someone at dialysis- He is still not scanning before bed but it appears he is high after dinner and thru the night.states that Gagandeep " stopped working" (Is working fine in office)-- has ajit placing sensor in wrong area- advised to us back of arm where fatty tissue is._- " lost ss"Given new scale again todayWill increase scale at dinner to 05/02/10.#2: We'll try to get him in with a CDE to better understand these concepts if he is willing #3: I increased his sliding scale at dinnertime also. * Follow up:* 6 months- dm and prolia * N18.4 Chronic kidney disease, stage 4 (severe)* Comments:* Dialysis started - -W- * M81.0 Age-related osteoporosis without current pathological fracture* Comments:* Hx of Compression fracture Patient fell backwards summer 2016, was seen by orthopedics with a documented fracture May 2017. This is consistent with osteoporosis. Due to his low GFR the only drug he can take his Prolia. We ordered a DEXA scan the patient refused to lie on the bed saying it was too uncomfortable for him.The only medication that would be appropriate for him would be Prolia: now has dual coverageacute L3 compression fracture on 09/19/2019. * D64.9 Anemia, unspecified* Comments:* Patient is receiving Procrit via dialysis. He remains on chronic iron. * Z79.4 manager intermediate (current) use of insulin* Comments:* Doses adjusted today. * E55.9 Vitamin D deficiency, unspecified* Comments:* Vit D regulated and monitored by nephrology * Z87.310 Personal history of (healed) osteoporosis fracture* Comments:* Compression fracture Patient fell backwards summer 2016,acute L3 compression fracture on 09/19/2019. * All * Comments:* The risks and benefits of Prolia were reviewed with the patient and included but were not limited to:The risk of infection,including infections of the abdomen, urinary tract and ear. Skin problems including dermatitis, eczema and other skin infections.Low blood calcium, and osteonecrosis of the jaw.Patient reviewed the medication guide and agreed to the injection.The patient is aware to contact us with any concerns or signs of the above. Prolia (denosumab) 60 mg was injected SQ into the left upper extremityLot #, [id number] 10/16 Functional Status Description No Information Available Mental Status Description No Information Available Referrals Refer to Dr Reason for Referral Status Appt Date Dacia Prado MD PROLIA NO AUTH REQUIRED PER CHACHO @ [facility] 45.00 COPAY. REF # [id number]. LS Created [address] [place] [phone] Dacia Prado MD REF TO PRACTICING UROLOGIST PER Namshi NO AUTH REQUIRED. L S Created [address] [place] [phone]
--- OUTSIDE RECORDS SUMMARY | 2021-09-27 15:20 | CCD ---
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 Helper Name Role Phone Crescencio Pelletier Unavailable PROBLEMS Type Condition ICD9-CM Code SKY65-GE Code Onset Dates Condition S tatus W/U Status Risk SNOMED Code Notes Problem Allergic rhinitis, unspecifi ed allergic rhinitis trigger, unspecified rhinitis seasonality J30.9 Active confirmed 15313139 Problem Diabetic peripheral neuropathy E11.42 Active confir med 914906289 Problem Chronic prescription opiate use Z79.891 Active confirmed 989680197 Problem COPD exacerbation J44.1 Active confirmed 19 9535257 Problem Anemia of chronic disease D63.8 Active confirmed 044502147 Problem Chronic kidney disease N18.9 Active confirmed 873585080 Problem skilled nursing (current) use of anticoagulants Z79.01 Active confirmed 580785134 Problem skilled nursing current use of anticoagulant Z79.01 A ctive confirmed 580649374 Problem Mixed hyperlipidemia E78.2 Active confirmed 390032334 Problem Frontal sinusitis, unspecified chronicity J32.1 Active confirmed 92465347 Problem Essential (primary) hypertension I10 Active conf irmed 01097671 Problem Chronic obstructive pulmonary disease, unspecified COPD ty pe J44.9 Active confirmed 96852638 Problem Anemia in other chronic diseases classified elsewhere D63.8 Active confirmed 174096007 Problem 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 Active confirmed 99576955 Problem Insomnia G47.00 Active confirmed 470923788 Problem Vitamin D deficiency E55.9 Active confirmed 89040633 Problem Gastroesophageal reflux disease without esophagitis K21.9 Active confirmed 405588614 Problem Gastroesophageal reflux disease, esophagitis pre sence not specified K21.9 Active confirmed 187457134 Problem Iron deficiency anemia, unspecified D50.9 Acti ve confirmed 73191508 Problem Celiac disease K90.0 Active confirmed 76764 1005 Problem Encounter for therapeutic drug level monitoring Z5 1.81 Active confirmed 393007207 Problem Low back pain M54.5 Active confirmed 993643 009 Problem Hx of deep venous thrombosis Z86.718 Active confirm ed 347287101 Problem Globus sensation F45.8 Active confirmed 888 77644 Problem Essential hypertension, hypertension with unspecified goal I10 Active confirmed 52180536 Problem Hearing loss, unspecified hearing loss type, uns pecified laterality H91.90 Active confirmed 73200143 Problem DM2 (diabetes mellitus, type 2) E11.9 Active confi rmed 39515207 Problem Esophageal dysphagia R13.10 Active confirmed 28536775 Problem Dependence on renal dialysis Z99.2 Active confirme d 838383627 Problem End stage renal disease N18.6 Active confirmed 840513307 Problem Other chronic pain G89.29 Active confirmed 8 2722887 Problem Restless legs syndrome G25.81 Active confirmed 37506610 Problem Major depressive disorder, single episode, unspecified F32.9 Active confirmed 02115756 Problem Anemia D64.9 Active confirmed 329068342 Problem Chronic obstructive pulmonary disease, unspecified J44.9 Active confirmed 86076969 Problem Situational mixed anxiety and depressive disorder F43.23 Active confirmed 398673748 Problem Chronic right-sided heart failure I50.812 Active confirmed 54682446 Problem Type 2 diabetes 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, unspecified CKD stage, unspecified whether custodial insulin use E11.22 Active confirmed 89303070 Problem Pulmonary hypertension I27.20 Active confirmed 85310887 Problem Situational depression F43.21 Active confirmed 78044275 ALLERGIES Allergen (clinical drug ingredient) Drug/Non Drug Allergy do cumented on EMR Reaction Allergy Type Onset Date Status Requip elevated liver enzymes Drug Allergy Active capsacin (topically) excessive burning Non Drug Allergy Active bacitracin / neomycin / polymyxin B Triple Antibiotic(NDC Co de:[address]-81) facial swelling Drug Allergy Active lisinopril Lisinopril(NDC Code:[address]-15) rash Drug Allergy Active phenytoin Dilantin(ND Code:[address]-68) Anaphylaxis Drug Allergy Active meperidine Demerol(RIC Code:[address]-70) Hives Drug Allergy Active Latex Latex rash Drug Allergy Active Levaquin HEAD ACHE Drug Allergy Active carbamazepine Tegretol(ND Code:[address]-18) Anaphylaxis Drug Aller gy Active Glucophage Rash Drug Allergy Active Tolmetin NSAIDs Unknown Drug Allergy Active dapsone Dapsone(NDC Code:[address]-96) anemia Drug Allergy Active rosuvastatin Crestor(ND Code:[address]-67) headache Drug Allergy Active Bee Sting Anaphylaxis Drug Allergy Active gabapentin Gabapentin(NDC Code:[address]-82) didn't work Drug Allerg y Active phenobarbital Phenobarbital([facility] Code:[address]-26) Anaphylaxis Drug Allergy Active pioglitazone Actos([facility] Code:[address]-50) EDEMA Drug Allergy Active Penicillin (For Allergies Use Only) hives Drug Allerg y Active pregabalin Lyrica([facility] Code:[address]-96) didn't work Drug Allergy Active ENCOUNTERS from 1950 to 2021-09-16 Encounter Location Date Provider Diagnosis [facility] [address] [facility] [phone] [place] [address] Aug, Crescencio Pelletier IMMUNIZATIONS Vaccine Route Administration [...] Education Language: Question Answer Notes Languages spoken: Indonesian Adventist: Question Answer Notes Adventist 03 Worship Sexual Hx: Question Answer Notes Had sex [...] Notes Start Da te End Date Status Warfarin Sodium 5 MG TAKE 2 TABLETS BY MOUTH AND WEDNESDAY. 1 AND 1/2 TABLETS BY MOUTH WEDNESDAY, WEDNESDAY, WEDNESDAY, WEDNESDAY AND WEDNESDAY for 90 Not-Taking Meclizine HCl 12.5 MG 2 tablets as needed Orally O nce a day as needed for vertigo prn Jul, Active Lipitor 40 mg 1 tablet Orally Once a day for 90 days Active Bisoprolol Fumarate 5 MG 1 tablet Orally twice daily Active hydrOXYzine HCl 50 MG 1 tablet as needed Orally fo ur times daily as needed for itching for 30 day(s) three times a day Apr, Not-Taki ng Isosorbide Mononitrate ER 30 MG 1 tablet Oral Once a day Not-Taking Acetaminophen 500 MG 2 tablets as needed Orally e very 6 hours for pain MDD 3000mg Nov, Active Prolia 60 MG/ML as directed Subcutaneous every 6 months Active Renvela 0.8 GM 1 packet mixed with 30 ml of water with meals Orally Three times a day for 30 day(s) Not-Taking HYDROcodone-Acetaminophen 5-325 MG 1 tablet as needed Orally every 6 hrs MDD: 4 tabs for 30 days Jul, Active Azelastine HCl 137 MCG/SPRAY 1 spray in each nostril Nasally Daily for 30 days Apr, Active Tamsulosin HCl 0.4 MG 1 capsule 30 minutes after t he same meal each day Orally Once a day FLOMAX Active Nitroglycerin 0.4 MG as directed Sublingual Q 5min X3 for chest pain Active Vitamin D (Ergocalciferol) 90757 UNIT 1 capsule Orally once a week-Mo nday Active Advair HFA 230-21 MCG/ACT 2 puffs Inhalation Twice a day for 30 Active NovoLOG 100 UNIT/ML as directed Subcutaneous 7 u nits breakfast and dinner, 5 units lunch Active Pantoprazole Sodium 40 MG 1 tablet Orally Once a day for 30 day(s) Active Lantus 100 UNIT/ML twice a day Subcutaneous 8 u nits in am and 5 units at bedtime Active Albuterol Sulfate (2.5 MG/3ML) 0.083% 3 ml Inhalation every 4 hrs as needed for SOB/wheezing for 90 day(s) Activ e MiraLax - 1 packet mixed with 8 ounces of fluid or ally twice daily for 30 days Active Glucagon Emergency 1 MG as directed Injection daily as needed Dec, Active Butrans 20 MCG/HR 1 patch to skin Transdermal Apply 1 patch q 7 days MDD=1 for 30 Days Jan, Active Blood Pressure Monitor - as directed for 99 months Sep, Active Coumadin 5 MG 8mg Orally Daily Activ e Flonase Allergy Relief 50 MCG/ACT 2 sprays in each nos tril Nasally Daily for 30 days Active Full Kit Nebulizer Set - as directed dx J44.9 (COPD) Daily for 9 9 months Jan, Active Plavix 75 MG 1 tablet Orally Once a day for 30 day(s) Not-Taking Proventil HFA 108 (90 Base) MCG/ACT 2 puffs Inhalation every 4 hours as needed for 90 days Active Betamethasone Dipropionate Aug 0.05 % 1 application Ex ternally to arms, legs, and trunk (large area) bid for 30 Days Active Lidocaine-Prilocaine 2.5-2.5 % as directed Externally to port 3 times weekly prior to dialysis [facility] Nov, Active Bumetanide 2 MG 1 tab Orally Daily BUMEX Nov, Active Gabapentin 100 MG 1 capsule Orally Once a day for 30 Days Apr, Active Fish Oil 1000 MG 1 cap(s) Orally three times a day Active Calcium Acetate 667 MG 3 tab Orally Three times a day Active Pramipexole Dihydrochloride 0.25 MG 1 tablet Orally bid for 30 d ays MIRAPEX Jul, Active Pen [place] 31G X 5 MM 1 each intradermally diag co de 250.6 four times a day for 90 day(s) Jul, Active Calcitriol 0.25 MCG 1 capsule Oral 4 X [id number] with dialysis Active Entresto 24-26 MG 1 tablet Orally Twice a day for 30 day(s) Active Fluticasone Furoate 50 MCG/ACT 2 puffs Inhalation Once a day for 30 d ays Active Zofran ODT 4 MG 1 tablet on the tongue and a llow to dissolve Orally 3 times a day as needed for nausea for 30 days Active Procrit 71875 UNIT/ML Injection monthly Active PROCEDURES No Information RESULTS No Results REASON FOR VISIT PT INR MEDICAL (GENERAL) HISTORY Type Description Date Medical [...] Inhalation Once a day for 30 days Next Appt Details Provider Name:Gianni Polo, 2021-10-02 09:30:00 AM, [address], , [place], [address], Insurance Providers Payer Name Payer Address Payer Phone Insured Name Patient Relati onship to Insured Coverage Start Date Coverage End Date MEDICAID [employer] [address] [facility] [address] Y[place] MEDICARE COMPLETE [employer] [address] [address] [facility] [phone] YOVANI VALLEJO self
--- OUTSIDE RECORDS SUMMARY | 2021-09-27 15:20 | CCD ---
Author Author [facility] Organization [facility] Address Unknown Phone Unavailable Care Team Providers Care Chocolate Coater Name Role Phone Crescencio Pelletier Unavailable PROBLEMS Type Condition ICD9-CM Code [id number] Code Onset Dates Condition S tatus W/U Status Risk SNOMED Code Notes Problem Essential (primary) hypertension I10 Active conf irmed 83146967 Problem Allergic rhinitis, unspecifi ed allergic rhinitis trigger, unspecified rhinitis seasonality J30.9 Active confirmed 40467543 Problem Chronic obstructive pulmonary disease, unspecified COPD ty pe J44.9 Active confirmed 19969776 Problem Diabetic peripheral neuropathy E11.42 Active confir med 519663873 Problem Chronic prescription opiate use Z79.891 Active confirmed 190541546 Problem COPD exacerbation J44.1 Active confirmed 19 1354767 Problem Anemia of chronic disease D63.8 Active confirmed 771396821 Problem Globus sensation F45.8 Active confirmed 888 30651 Problem Essential hypertension, hypertension with unspecified goal I10 Active confirmed 50190333 Problem Hearing loss, unspecified hearing loss type, uns pecified laterality H91.90 Active confirmed 97716683 Problem DM2 (diabetes mellitus, type 2) E11.9 Active confi rmed 51277981 Problem Anemia in other chronic diseases classified elsewhere D63.8 Active confirmed 534041613 Problem Mixed hyperlipidemia E78.2 Active confirmed 603134985 Problem Chronic obstructive pulmonary disease, unspecified J44.9 Active confirmed 47821467 Problem Restless legs syndrome G25.81 Active confirmed 34127747 Problem 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 Active confirmed 01920553 Problem Type 2 diabetes 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, unspecified CKD stage, unspecified whether fci insulin use E11.22 Active confirmed 06509077 Problem Insomnia G47.00 Active confirmed 652279918 Problem Vitamin D deficiency E55.9 Active confirmed 34050126 Problem Gastroesophageal reflux disease without esophagitis K21.9 Active confirmed 314307998 Problem Gastroesophageal reflux disease, esophagitis pre sence not specified K21.9 Active confirmed 192676511 Problem Iron deficiency anemia, unspecified D50.9 Acti ve confirmed 13109022 Problem Celiac disease K90.0 Active confirmed 74877 1005 Problem Encounter for therapeutic drug level monitoring Z5 1.81 Active confirmed 874638223 Problem Low back pain M54.5 Active confirmed 067313 009 Problem Hx of deep venous thrombosis Z86.718 Active confirm ed 696620867 Problem Frontal sinusitis, unspecified chronicity J32.1 Active confirmed 77579776 Problem 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.01 A ctive confirmed 361260425 Problem Esophageal dysphagia R13.10 Active confirmed 16087718 Problem Pulmonary hypertension I27.20 Active confirmed 23563659 Problem Chronic kidney disease N18.9 Active confirmed 412607369 Problem Situational depression F43.21 Active confirmed 66490282 Problem FDC (current) use of anticoagulants Z79.01 Active confirmed 532233275 Problem Anemia D64.9 Active confirmed 690477745 Problem End stage renal disease N18.6 Active confirmed 452650928 Problem Dependence on renal dialysis Z99.2 Active confirme d 833971355 Problem Situational mixed anxiety and depressive disorder F43.23 Active confirmed 798415016 Problem Chronic right-sided heart failure I50.812 Active confirmed 28430259 ALLERGIES Allergen (clinical drug ingredient) Drug/Non Drug Allergy do cumented on EMR Reaction Allergy Type Onset Date Status Requip elevated liver enzymes Drug Allergy Active capsacin (topically) excessive burning Non Drug Allergy Active bacitracin / neomycin / polymyxin B Triple Antibiotic([facility] Co de:[address]-60) facial swelling Drug Allergy Active lisinopril Lisinopril([facility] Code:[address]-91) rash Drug Allergy Active phenytoin Dilantin([facility] Code:[address]-15) Anaphylaxis Drug Allergy Active meperidine Demerol([facility] Code:[address]-81) Hives Drug Allergy Active Latex Latex rash Drug Allergy Active Levaquin HEAD ACHE Drug Allergy Active carbamazepine Tegretol([facility] Code:[address]-31) Anaphylaxis Drug Aller gy Active Glucophage Rash Drug Allergy Active Tolmetin NSAIDs Unknown Drug Allergy Active dapsone Dapsone([facility] Code:[address]-09) anemia Drug Allergy Active rosuvastatin Crestor([facility] Code:[address]-25) headache Drug Allergy Active Bee Sting Anaphylaxis Drug Allergy Active gabapentin Gabapentin([facility] Code:[address]-95) didn't work Drug Allerg y Active phenobarbital Phenobarbital([facility] Code:[address]-24) Anaphylaxis Drug Allergy Active pioglitazone Actos([facility] Code:[address]-72) EDEMA Drug Allergy Active Penicillin (For Allergies Use Only) hives Drug Allerg y Active pregabalin Lyrica([facility] Code:[address]-19) didn't work Drug Allergy Active ENCOUNTERS from 1950 to 2021-09-08 Encounter Location Date Provider Diagnosis [facility] [address] [phone] [place] [address] 15 Aug, 2021 Crescencio Pelletier IMMUNIZATIONS Vaccine Route Administration Date [...] Language: Question Answer Notes Languages spoken: Indonesian Yazidism: Question Answer Notes Yazidism 03 Pentecostalism Sexual Hx: Question Answer Notes Had sex [...] Notes Start Da te End Date Status Lidocaine-Prilocaine 2.5-2.5 % as directed Externally to port 3 times weekly prior to dialysis COREEN Nov, Active MiraLax - 1 packet mixed with 8 ounces of fluid or ally twice daily for 30 days Active Proventil HFA 108 (90 Base) MCG/ACT 2 puffs Inhalation every 4 hours as needed for 90 days Active Lipitor 40 mg 1 tablet Orally Once a day for 90 days Active Warfarin Sodium 5 MG TAKE 2 TABLETS BY MOUTH AND WEDNESDAY. 1 AND 1/2 TABLETS BY MOUTH WEDNESDAY, WEDNESDAY, WEDNESDAY, WEDNESDAY AND WEDNESDAY for 90 Not-Taking Albuterol Sulfate (2.5 MG/3ML) 0.083% 3 ml Inhalation every 4 hrs as needed for SOB/wheezing for 90 day(s) Activ e Flonase Allergy Relief 50 MCG/ACT 2 sprays in each nos tril Nasally Daily for 30 days Active Tamsulosin HCl 0.4 MG 1 capsule 30 minutes after t he same meal each day Orally Once a day FLOMAX Active Lantus 100 UNIT/ML twice a day Subcutaneous 8 u nits in am and 5 units at bedtime Active Fish Oil 1000 MG 1 cap(s) Orally three times a day Active Meclizine HCl 12.5 MG 2 tablets as needed Orally O nce a day as needed for vertigo prn Jul, Active Nitroglycerin 0.4 MG as directed Sublingual Q 5min X3 for chest pain Active Pen Warwick 31G X 5 MM 1 each intradermally diag co de 250.6 four times a day for 90 day(s) Jul, Active Acetaminophen 500 MG 2 tablets as needed Orally e very 6 hours for pain MDD 3000mg Nov, Active Bisoprolol Fumarate 5 MG 1 tablet Orally twice daily Active Prolia 60 MG/ML as directed Subcutaneous every 6 months Active Bumetanide 2 MG 1 tab Orally Daily BUMEX Nov, Active HYDROcodone-Acetaminophen 5-325 MG 1 tablet as needed Orally every 6 hrs MDD: 4 tabs for 30 days Jul, Active Glucagon Emergency 1 MG as directed Injection daily as needed Dec, Active Zofran ODT 4 MG 1 tablet on the tongue and a llow to dissolve Orally 3 times a day as needed for nausea for 30 days Active Vitamin D (Ergocalciferol) 86974 UNIT 1 capsule Orally once a week-Mo nday Active Procrit 75802 UNIT/ML Injection monthly Active Renvela 0.8 GM 1 packet mixed with 30 ml of water with meals Orally Three times a day for 30 day(s) Not-Taking Advair HFA 230-21 MCG/ACT 2 puffs Inhalation Twice a day for 30 Active hydrOXYzine HCl 50 MG 1 tablet as needed Orally fo ur times daily as needed for itching for 30 day(s) three times a day Apr, Not-Taki ng Coumadin 5 MG 8mg Orally Daily Activ e Betamethasone Dipropionate Aug 0.05 % 1 application Ex ternally to arms, legs, and trunk (large area) bid for 30 Days Active Plavix 75 MG 1 tablet Orally Once a day for 30 day(s) Not-Taking Pantoprazole Sodium 40 MG 1 tablet Orally Once a day for 30 day(s) Active Azelastine HCl 137 MCG/SPRAY 1 spray in each nostril Nasally Daily for 30 days Apr, Active Entresto 24-26 MG 1 tablet Orally Twice a day for 30 day(s) Active Blood Pressure Monitor - as directed for 99 months Sep, Active Gabapentin 100 MG 1 capsule Orally Once a day for 30 Days Apr, Active Butrans 20 MCG/HR 1 patch to skin Transdermal Apply 1 patch q 7 days MDD=1 for 30 Days Jan, Active Isosorbide Mononitrate ER 30 MG 1 tablet Oral Once a day Not-Taking Pramipexole Dihydrochloride 0.25 MG 1 tablet Orally bid for 30 d ays MIRAPEX Jul, Active Calcitriol 0.25 MCG 1 capsule Oral 4 X lxms-L-S-F-S with dialysis Active NovoLOG 100 UNIT/ML as directed Subcutaneous 7 u nits breakfast and dinner, 5 units lunch Active Calcium Acetate 667 MG 3 tab Orally Three times a day Active Full Kit Nebulizer Set - as directed dx J44.9 (COPD) Daily for 9 9 months Jan, Active PROCEDURES No Information RESULTS No Results REASON FOR VISIT No Information MEDICAL (GENERAL) HISTORY Type Description Date Medical [...] Medication Name Sig Start Date Stop Date Butrans 20 MCG/HR 1 patch to skin Transdermal Apply 1 patch q 7 days MDD=1 for 30 Days Jan, Advair HFA 230-21 MCG/ACT 2 puffs Inhalation Twice a day for 30 HYDROcodone-Acetaminophen 5-325 MG 1 tablet as needed Orally every 6 hrs MDD: 4 tabs for 30 days Jul, Gabapentin 100 MG 1 capsule Orally Once a day for 30 Days Apr Lipitor 40 mg 1 tablet Orally Once a day for 90 days Next Appt Details Provider Name:Crescencio Pelletier, 2021-09-11 01: 00:00 PM, [address], , [place], [address], Provider Name:Gianni Polo, 2021-10-02 09:30:00 AM, [address], , [place], [address], Insurance Providers Payer Name Payer Address Payer Phone Insured Name Patient Relati onship to Insured Coverage Start Date Coverage End Date MEDICAID [employer] [address] [facility] [id number] YOVANI VALLEJO self MEDICARE COMPLETE [facility] [address] [address] [facility] [phone] YOVANI VALLEJO self
--- OUTSIDE RECORDS SUMMARY | 2021-09-27 15:20 | CCD ---
Author Author [facility] Organization [facility] Address Unknown Phone Unavailable Care Team Providers Care Assembler Brazer Name Role Phone Crescencio Pelletier Unavailable PROBLEMS Type Condition ICD9-CM Code BGH97-OV Code Onset Dates Condition S tatus W/U Status Risk SNOMED Code Notes Problem Allergic rhinitis, unspecifi ed allergic rhinitis trigger, unspecified rhinitis seasonality J30.9 Active confirmed 47635364 Problem Diabetic peripheral neuropathy E11.42 Active confir med 057197256 Problem Chronic prescription opiate use Z79.891 Active confirmed 871997708 Problem COPD exacerbation J44.1 Active confirmed 19 0295076 Problem Anemia of chronic disease D63.8 Active confirmed 589968926 Problem Chronic kidney disease N18.9 Active confirmed 265539161 Problem jail (current) use of anticoagulants Z79.01 Active confirmed 460537677 Problem jail current use of anticoagulant Z79.01 A ctive confirmed 259192654 Problem Mixed hyperlipidemia E78.2 Active confirmed 150529317 Problem Frontal sinusitis, unspecified chronicity J32.1 Active confirmed 21522595 Problem Essential (primary) hypertension I10 Active conf irmed 52765872 Problem Chronic obstructive pulmonary disease, unspecified COPD ty pe J44.9 Active confirmed 70392514 Problem Anemia in other chronic diseases classified elsewhere D63.8 Active confirmed 428023022 Problem 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 Active confirmed 06807223 Problem Insomnia G47.00 Active confirmed 315214313 Problem Vitamin D deficiency E55.9 Active confirmed 88912867 Problem Gastroesophageal reflux disease without esophagitis K21.9 Active confirmed 093371800 Problem Gastroesophageal reflux disease, esophagitis pre sence not specified K21.9 Active confirmed 292276550 Problem Iron deficiency anemia, unspecified D50.9 Acti ve confirmed 31431249 Problem Celiac disease K90.0 Active confirmed 67449 1005 Problem Encounter for therapeutic drug level monitoring Z5 1.81 Active confirmed 181263284 Problem Low back pain M54.5 Active confirmed 000085 009 Problem Hx of deep venous thrombosis Z86.718 Active confirm ed 768845783 Problem Globus sensation F45.8 Active confirmed 888 52917 Problem Essential hypertension, hypertension with unspecified goal I10 Active confirmed 44701297 Problem Hearing loss, unspecified hearing loss type, uns pecified laterality H91.90 Active confirmed 75446359 Problem DM2 (diabetes mellitus, type 2) E11.9 Active confi rmed 72697993 Problem Esophageal dysphagia R13.10 Active confirmed 26895661 Problem Dependence on renal dialysis Z99.2 Active confirme d 528763653 Problem End stage renal disease N18.6 Active confirmed 409990110 Problem Other chronic pain G89.29 Active confirmed 8 6307623 Problem Restless legs syndrome G25.81 Active confirmed 71454517 Problem Major depressive disorder, single episode, unspecified F32.9 Active confirmed 59435297 Problem Anemia D64.9 Active confirmed 006482344 Problem Chronic obstructive pulmonary disease, unspecified J44.9 Active confirmed 62451614 Problem Situational mixed anxiety and depressive disorder F43.23 Active confirmed 854666004 Problem Chronic right-sided heart failure I50.812 Active confirmed 72119339 Problem Type 2 diabetes 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, unspecified CKD stage, unspecified whether retirement insulin use E11.22 Active confirmed 27809026 Problem Pulmonary hypertension I27.20 Active confirmed 49957044 Problem Situational depression F43.21 Active confirmed 40465327 ALLERGIES Allergen (clinical drug ingredient) Drug/Non Drug Allergy do cumented on EMR Reaction Allergy Type Onset Date Status Requip elevated liver enzymes Drug Allergy Active capsacin (topically) excessive burning Non Drug Allergy Active bacitracin / neomycin / polymyxin B Triple Antibiotic([facility] Co de:[address]-32) facial swelling Drug Allergy Active lisinopril Lisinopril([facility] Code:[address]-15) rash Drug Allergy Active phenytoin Dilantin([facility] Code:[address]-00) Anaphylaxis Drug Allergy Active meperidine Demerol([facility] Code:[address]-39) Hives Drug Allergy Active Latex Latex rash Drug Allergy Active Levaquin HEAD ACHE Drug Allergy Active carbamazepine Tegretol([facility] Code:[address]-08) Anaphylaxis Drug Aller gy Active Glucophage Rash Drug Allergy Active Tolmetin NSAIDs Unknown Drug Allergy Active dapsone Dapsone([facility] Code:[address]-10) anemia Drug Allergy Active rosuvastatin Crestor([facility] Code:[address]-24) headache Drug Allergy Active Bee Sting Anaphylaxis Drug Allergy Active gabapentin Gabapentin([facility] Code:[address]-68) didn't work Drug Allerg y Active phenobarbital Phenobarbital([facility] Code:[address]-02) Anaphylaxis Drug Allergy Active pioglitazone Actos([facility] Code:[address]-10) EDEMA Drug Allergy Active Penicillin (For Allergies Use Only) hives Drug Allerg y Active pregabalin Lyrica([facility] Code:[address]-03) didn't work Drug Allergy Active ENCOUNTERS from 1950 to 2021-09-12 Encounter Location Date Provider Diagnosis [facility] [address] [facility] [phone] [place] [address] Aug, Crescencio Pelletier IMMUNIZATIONS Vaccine Route Administration [...] Education Language: Question Answer Notes Languages spoken: Eritrean Methodist: Question Answer Notes Methodist 03 Christianity Sexual Hx: Question Answer Notes Had sex [...] for chest pain Active Vitamin D (Ergocalciferol) 83461 UNIT 1 capsule Orally once a week-Mo [...] 30 d ays MIRAPEX Jul, Active Pen Pettus 31G X 5 MM 1 each intradermally diag co de 250.6 four times a day for 90 day(s) Jul, Active Calcitriol 0.25 MCG 1 capsule Oral 4 X liha-C-K-F-S with dialysis Active Entresto 24-26 MG 1 tablet Orally Twice a day for 30 day(s) Active Fluticasone Furoate 50 MCG/ACT 2 puffs Inhalation Once a day for 30 d ays Active Zofran ODT 4 MG 1 tablet on the tongue and a llow to dissolve Orally 3 times a day as needed for nausea for 30 days Active Procrit 22247 UNIT/ML Injection monthly Active PROCEDURES No Information [...] Provider Name:Gianni Polo, 2021-10-02 09:30:00 AM, [address], , [place], [address], Insurance Providers Payer Name Payer Address Payer Phone Insured Name Patient Relati onship to Insured Coverage Start Date Coverage End Date MEDICAID [employer] [address] [facility] [id number] YOVANI VALLEJO MEDICARE COMPLETE [employer] [address] [address] [facility] [id number] YOVANI VALLEJO self
--- OUTSIDE RECORDS SUMMARY | 2021-09-27 15:20 | CCD | Continuity of Care Document ---
Author Author Nile PRADO MD Organization Unknown Address [address] [place] [address] Phone [phone] Care Team Providers Care Cephalometric Tracer Name Role Phone Pearl Ramirez MD AUTM [phone] Danny Pat MD AUTM [phone] Problems Active Problems Provider Date Type II [...] Symptom of skin and integumentary tissue Dacia Pardo MD Onset: 02/11/2015 Multiple complications due to [...] 40mg Tablets 1 po qd Unknown Drisdol [id number] Capsules 1 tab by mouth weekly Unknown [...] SIG Qnty Indications Ordering Provider Date Pat FORD#[id number] (60mg Syringe)1MG Injection Dacia Prado MD 02/26/20 Pat FORD#[id number] (60mg Syringe)1MG Injection Dacia Prado MD 08/27/20 20 Pat SEGUNDOC#[id number] (60mg Syringe)1MG Injection Dacia Prado MD 02/20/20 20 Immunizations Description No Information Available Vital Signs [...] 8.6 Procedures Date Code Description Status 09/02/2021 34066 Office/Outpatient Established Hi gh MDM 40-54 Min Completed 09/02/2021 74142 Amb Glucose Monitoring Interpret ation And Report Completed 08/26/2021 [id number] Diabetic Foot Exam Completed 06/10/2021 16962 Office/Outpatient Established Mo d MDM 30-39 Min Completed 06/10/2021 26379 Amb Glucose Monitoring Interpret ation And Report Completed Medical Devices Description No Information Available Encounters Type Date Location Provider Dx Diagnosis Office Visit 09/02/2021 3:15p DR. 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 M/W/F in office A1c= 8.6% [id number]=468 ( Non dialysis afternoon)04/2021, hemoglobin and hematocrit = 11/33Creatinine = 9.0, PTH = 304, glucose = 171LDL = 61, HDL = 29, triglycerides = 155A1c = 8.6%01/2021: A1c = 8.3%, 02/03/2021.prior A1c April=6.4% 6.4%. 6.3% (6.3%, 6.5%, 7.4% ) Meter Download- Now using the dondeEsta™style Gagandeep.Time in range, only 28% He has [...] stage 4 (severe)* Comments:* Dialysis started - -- * M81.0 Age-related osteoporosis without current pathological [...] He remains on chronic iron. 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 REF # [id number]. 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 L S Created [address] [place] [phone]
--- OUTSIDE RECORDS SUMMARY | 2021-09-27 15:20 | CCD ---
Author Author [facility] Organization [facility] Address Unknown Phone Unavailable Care Team Providers Care Buyer Agent Name Role Phone Crescencio Pelletier Unavailable PROBLEMS Type Condition ICD9-CM Code IRL02-UT Code Onset Dates Condition S tatus W/U Status Risk SNOMED Code Notes Problem Allergic rhinitis, unspecifi ed allergic rhinitis trigger, unspecified rhinitis seasonality J30.9 Active confirmed 50318830 Problem Diabetic peripheral neuropathy E11.42 Active confir med 815553598 Problem Chronic prescription opiate use Z79.891 Active confirmed 271073632 Problem COPD exacerbation J44.1 Active confirmed 19 7476519 Problem Anemia of chronic disease D63.8 Active confirmed 702759505 Problem Chronic kidney disease N18.9 Active confirmed 052890291 Problem group home (current) use of anticoagulants Z79.01 Active confirmed 857407555 Problem group home current use of anticoagulant Z79.01 A ctive confirmed 830175467 Problem Mixed hyperlipidemia E78.2 Active confirmed 542976895 Problem Frontal sinusitis, unspecified chronicity J32.1 Active confirmed 07318974 Problem Essential (primary) hypertension I10 Active conf irmed 49553920 Problem Chronic obstructive pulmonary disease, unspecified COPD ty pe J44.9 Active confirmed 79234014 Problem Anemia in other chronic diseases classified elsewhere D63.8 Active confirmed 943532130 Problem 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 Active confirmed 66264122 Problem Insomnia G47.00 Active confirmed 462141634 Problem Vitamin D deficiency E55.9 Active confirmed 91567105 Problem Gastroesophageal reflux disease without esophagitis K21.9 Active confirmed 365631080 Problem Gastroesophageal reflux disease, esophagitis pre sence not specified K21.9 Active confirmed 902052075 Problem Iron deficiency anemia, unspecified D50.9 Acti ve confirmed 24136987 Problem Celiac disease K90.0 Active confirmed 01628 1005 Problem Encounter for therapeutic drug level monitoring Z5 1.81 Active confirmed 254831443 Problem Low back pain M54.5 Active confirmed 016985 009 Problem Hx of deep venous thrombosis Z86.718 Active confirm ed 805378790 Problem Globus sensation F45.8 Active confirmed 888 85794 Problem Essential hypertension, hypertension with unspecified goal I10 Active confirmed 39436251 Problem Hearing loss, unspecified hearing loss type, uns pecified laterality H91.90 Active confirmed 43360252 Problem DM2 (diabetes mellitus, type 2) E11.9 Active confi rmed 89213708 Problem Esophageal dysphagia R13.10 Active confirmed 39803051 Problem Dependence on renal dialysis Z99.2 Active confirme d 580116167 Problem End stage renal disease N18.6 Active confirmed 927792321 Problem Other chronic pain G89.29 Active confirmed 8 5209513 Problem Restless legs syndrome G25.81 Active confirmed 14372140 Problem Major depressive disorder, single episode, unspecified F32.9 Active confirmed 00801783 Problem Anemia D64.9 Active confirmed 875866136 Problem Chronic obstructive pulmonary disease, unspecified J44.9 Active confirmed 93864941 Problem Situational mixed anxiety and depressive disorder F43.23 Active confirmed 889396630 Problem Chronic right-sided heart failure I50.812 Active confirmed 00830174 Problem Type 2 diabetes 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, unspecified CKD stage, unspecified whether correction insulin use E11.22 Active confirmed 09710114 Problem Pulmonary hypertension I27.20 Active confirmed 63278907 Problem Situational depression F43.21 Active confirmed 18277014 ALLERGIES Allergen (clinical drug ingredient) Drug/Non Drug Allergy do cumented on EMR Reaction Allergy Type Onset Date Status Requip elevated liver enzymes Drug Allergy Active capsacin (topically) excessive burning Non Drug Allergy Active bacitracin / neomycin / polymyxin B Triple Antibiotic(NDC Co de:[address]-47) facial swelling Drug Allergy Active lisinopril Lisinopril(NDC Code:[address]-85) rash Drug Allergy Active phenytoin Dilantin(ND Code:[address]-39) Anaphylaxis Drug Allergy Active meperidine Demerol(NDC Code:[address]-22) Hives Drug Allergy Active Latex Latex rash Drug Allergy Active Levaquin HEAD ACHE Drug Allergy Active carbamazepine Tegretol(NDC Code:[address]-86) Anaphylaxis Drug Aller gy Active Glucophage Rash Drug Allergy Active Tolmetin NSAIDs Unknown Drug Allergy Active dapsone Dapsone(NDC Code:[address]-74) anemia Drug Allergy Active rosuvastatin Crestor(ND Code:[address]-20) headache Drug Allergy Active Bee Sting Anaphylaxis Drug Allergy Active gabapentin Gabapentin(NDC Code:[address]-37) didn't work Drug Allerg y Active phenobarbital Phenobarbital(NDC Code:[address]-00) Anaphylaxis Drug Allergy Active pioglitazone Actos(NDC Code:[address]-49) EDEMA Drug Allergy Active Penicillin (For Allergies Use Only) hives Drug Allerg y Active pregabalin Lyrica(NDC Code:[address]-68) didn't work Drug Allergy Active ENCOUNTERS from 1950 to 2021-09-12 Encounter Location Date Provider Diagnosis [facility] [place] [address] [facility] [phone] [place] [address] 15 Aug, 2021 Crescencio Pelletier Iron deficiency anem ia, unspecified D50.9 ; Essential (primary) hypertension I10 ; Mixed hyperlipidemia E78.2 ; Chronic kidney disease N18.9 ; Vitamin D deficiency E55.9 ; 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.01 ; Type 2 diabetes mellitus with diabetic chronic kidney disease, unspecified CKD stage, unspecified whether 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 and Chronic prescription opiate use Z79.891 IMMUNIZATIONS Vaccine Route Administration Date Status Pneumococcal [...] Language: Question Answer Notes Languages spoken: Indonesian Evangelical: Question Answer Notes Evangelical 03 Scientology Sexual Hx: Question Answer Notes Had sex [...] for chest pain Active Vitamin D (Ergocalciferol) 02219 UNIT 1 capsule Orally once a week-Mo [...] 30 d ays MIRAPEX Jul, Active Pen [place] 31G X 5 MM 1 each intradermally diag co de 250.6 four times a day for 90 day(s) Jul, Active Calcitriol 0.25 MCG 1 capsule Oral 4 X cxcy-N-P-- with dialysis Active Entresto 24-26 MG 1 tablet Orally Twice a day for 30 day(s) Active Fluticasone Furoate 50 MCG/ACT 2 puffs Inhalation Once a day for 30 d ays Active Zofran ODT 4 MG 1 tablet on the tongue and a llow to dissolve Orally 3 times a day as needed for nausea for 30 days Active Procrit 43586 UNIT/ML Injection monthly Active PROCEDURES No Information RESULTS No Results REASON FOR VISIT Labs MEDICAL (GENERAL) HISTORY Type Description Date Medical History DVT CHRONIC PHLEBITIS Medical History CHRONIC VENOUS INSUFFICIENCY Medical History PERIPHERAL NEUROPATHY Medical History TYPE 2 DIABETES--Dr Amihsa Grace Medical History HYPERLIPIDEMIA Medical History HTN [...] Surgical History colonsocopy (adenomatous polyp 2009) 200 4,2009 Surgical History EGD 2009 Surgical History Endoscopy [...] No Information FUNCTIONAL STATUS No Information ASSESSMENTS Encounter Date Diagnosis Assessment Notes Treatment Notes Treatm ent Clinical Notes Aug, Iron deficiency anemia, unspecified (ICD-10 - D5 0.9) Aug, Essential (primary) hypertension (ICD-10 - I10) Aug, Mixed hyperlipidemia (ICD-10 - E78.2) Aug, Chronic kidney disease (ICD-10 - N18.9) Aug, Vitamin D deficiency (ICD-10 - E55.9) Aug, group home current use of anticoagulant (ICD-10 - Z79.01) Aug, Type 2 diabetes 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, unspecified CKD stage, unspecified whether correction insulin use (ICD-10 - E11.22) Aug, Chronic prescription opiate use (ICD-10 - Z79.89 1) PLAN OF TREATMENT Medication Medication Name Sig Start Date Stop Date Fluticasone Furoate 50 MCG/ACT 2 puffs Inhalation Once a day for 30 days Pending Tests Test Name Order Date LIPID PANEL (CARDIAC RISK) 2021-09-08 VITAMIN D 25-HYDROXY 2021-09-08 HYDROCODONE & METABOLITES SER 2021-09-08 Next Appt Details Provider Name:Gianni Christ, 2021-10-02 09:30:00 AM, [address], , [place], [address], Insurance Providers Payer Name Payer Address Payer Phone Insured Name Patient Relati onship to Insured Coverage Start Date Coverage End Date MEDICARE COMPLETE [facility] [address] [address] [facility] [id number] YOVANI VALLEJO MEDICAID [email or web address] [address] [facility] [address] [phone] YOVANI VALLEJO
--- OUTSIDE RECORDS SUMMARY | 2021-09-27 15:21 | CCD ---
Author Author [facility] Organization [facility] Address Unknown Phone Unavailable Care Team Providers Care Clinical Psychology Teacher Name Role Phone Crescencio Pelletier Unavailable PROBLEMS Type Condition ICD9-CM Code NDW17-QN Code Onset Dates Condition S tatus W/U Status Risk SNOMED Code Notes Problem Essential (primary) hypertension I10 Active conf irmed 30065505 Problem Allergic rhinitis, unspecifi ed allergic rhinitis trigger, unspecified rhinitis seasonality J30.9 Active confirmed 22564708 Problem Chronic obstructive pulmonary disease, unspecified COPD ty pe J44.9 Active confirmed 29843935 Problem Diabetic peripheral neuropathy E11.42 Active confir med 417247169 Problem Chronic prescription opiate use Z79.891 Active confirmed 559329917 Problem COPD exacerbation J44.1 Active confirmed 19 1273712 Problem Anemia of chronic disease D63.8 Active confirmed 910974264 Problem Globus sensation F45.8 Active confirmed 888 46857 Problem Essential hypertension, hypertension with unspecified goal I10 Active confirmed 77527074 Problem Hearing loss, unspecified hearing loss type, uns pecified laterality H91.90 Active confirmed 92670006 Problem DM2 (diabetes mellitus, type 2) E11.9 Active confi rmed 28863606 Problem Anemia in other chronic diseases classified elsewhere D63.8 Active confirmed 726302488 Problem Mixed hyperlipidemia E78.2 Active confirmed 024501818 Problem Chronic obstructive pulmonary disease, unspecified J44.9 Active confirmed 43219673 Problem Restless legs syndrome G25.81 Active confirmed 85587485 Problem 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 Active confirmed 39488172 Problem Type 2 diabetes 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, unspecified CKD stage, unspecified whether [facility] insulin use E11.22 Active confirmed 06082635 Problem Insomnia G47.00 Active confirmed 581082021 Problem Vitamin D deficiency E55.9 Active confirmed 57141882 Problem Gastroesophageal reflux disease without esophagitis K21.9 Active confirmed 668879635 Problem Gastroesophageal reflux disease, esophagitis pre sence not specified K21.9 Active confirmed 547984340 Problem Iron deficiency anemia, unspecified D50.9 Acti ve confirmed 09709989 Problem Celiac disease K90.0 Active confirmed 13578 1005 Problem Encounter for therapeutic drug level monitoring Z5 1.81 Active confirmed 238676405 Problem Low back pain M54.5 Active confirmed 198558 009 Problem Hx of deep venous thrombosis Z86.718 Active confirm ed 807217689 Problem Frontal sinusitis, unspecified chronicity J32.1 Active confirmed 51863193 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 A ctive confirmed 758210442 Problem Esophageal dysphagia R13.10 Active confirmed 14101316 Problem Pulmonary hypertension I27.20 Active confirmed 50511891 Problem Chronic kidney disease N18.9 Active confirmed 829669463 Problem Situational depression F43.21 Active confirmed 26578922 Problem [facility] (current) use of anticoagulants Z79.01 Active confirmed 644769021 Problem Anemia D64.9 Active confirmed 535327710 Problem End stage renal disease N18.6 Active confirmed 449572646 Problem Dependence on renal dialysis Z99.2 Active confirme d 212491765 Problem Situational mixed anxiety and depressive disorder F43.23 Active confirmed 121583605 Problem Chronic right-sided heart failure I50.812 Active confirmed 09619371 ALLERGIES Allergen (clinical drug ingredient) Drug/Non Drug Allergy do cumented on EMR Reaction Allergy Type Onset Date Status gabapentin gabapentin didn't work Non Drug Allergy Active bacitracin / neomycin / polymyxin B Triple Antibiotic([facility] Co de:[address]-32) facial swelling Drug Allergy Active lisinopril Lisinopril(NDC Code:[address]-94) rash Drug Allergy Active Crestor headache Non Drug Allergy Active meperidine Demerol(NDC Code:[address]-11) Hives Drug Allergy Active Latex (for allergy use only) rash Drug Allergy Active carbamazepine Tegretol(NDC Code:[address]-03) Anaphylaxis Drug Aller gy Active Requip elevated liver enzymes Non Drug Allergy Active capsacin (topically) excessive burning Non Drug Allergy Active Dapsone Dapsone anemia Non Drug Allergy Active Levaquin HEAD ACHE Drug Allergy Active Bee Sting Anaphylaxis Drug Allergy Active Glucophage Rash Drug Allergy Active phenytoin Dilantin([facility] Code:[address]-49) Anaphylaxis Drug Allergy Active Tolmetin NSAIDs Unknown Drug Allergy Active pioglitazone Actos([facility] Code:[address]-03) EDEMA Drug Allergy Active Lyrica didn't work Non Drug Allergy Active Penicillin (For Allergies Use Only) hives Drug Allerg y Active phenobarbital Phenobarbital([facility] Code:[address]-75) Anaphylaxis Drug Allergy Active ENCOUNTERS from 1950 to 2021-08-07 Encounter Location Date Provider Diagnosis [place] [id number] [facility] [phone] [place] [address] Jun, Crescencio Pelletier IMMUNIZATIONS Vaccine Route Administration Date [...] Education Language: Question Answer Notes Languages spoken: Mosotho Jew: Question Answer Notes Jew 03 Zoroastrianism Sexual Hx: Question Answer Notes Had sex [...] weekly prior to dialysis COREEN Nov, Active Albuterol Sulfate (2.5 MG/3ML) 0.083% 3 ml Inhalation every 4 hrs as needed for SOB/wheezing for 90 day(s) Activ e Entresto 24-26 MG 1 tablet Orally Twice a day for 30 day(s) Active NovoLOG 100 UNIT/ML as directed Subcutaneous 7 u nits breakfast and dinner, 5 units lunch Active Warfarin Sodium 5 MG TAKE 2 TABLETS BY MOUTH AND WEDNESDAY. 1 AND 1/2 TABLETS BY MOUTH WEDNESDAY, WEDNESDAY, WEDNESDAY, WEDNESDAY AND WEDNESDAY for 90 Not-Taking Azelastine HCl 137 MCG/SPRAY 1 spray in each nostril Nasally Daily for 30 days Apr, Active Zofran ODT 4 MG 1 tablet on the tongue and a llow to dissolve Orally 3 times a day as needed for nausea for 30 days Active Tamsulosin HCl 0.4 MG 1 capsule 30 minutes after t he same meal each day Orally Once a day FLOMAX Active MiraLax - 1 packet mixed with 8 ounces of fluid or ally twice daily for 30 days Active Proventil HFA 108 (90 Base) MCG/ACT 2 puffs Inhalation every 4 hours as needed for 90 days Active Meclizine HCl 12.5 MG 2 tablets as needed Orally O nce a day as needed for vertigo prn Jul, Active Lipitor 40 mg 1 tablet Orally Once a day for 90 days Active Flonase Allergy Relief 50 MCG/ACT 2 sprays in each nos tril Nasally Daily for 30 days Active Lantus 100 UNIT/ML twice a day Subcutaneous 8 u nits in am and 5 units at bedtime Active Fish Oil 1000 MG 1 cap(s) Orally three times a day Active Prolia 60 MG/ML as directed Subcutaneous every 6 months Active Nitroglycerin 0.4 MG as directed Sublingual Q 5min X3 for chest pain Active Pen [place] 31G X 5 MM 1 each intradermally diag co de 250.6 four times a day for 90 day(s) Jul, Active Vitamin D (Ergocalciferol) 95410 UNIT 1 capsule Orally once a week-Mo nday Active Bumetanide 2 MG 1 tab Orally Daily BUMEX Nov, Active Bisoprolol Fumarate 5 MG 1 tablet Orally twice daily Active Procrit 95069 UNIT/ML Injection monthly Active Renvela 0.8 GM [...] three times a day Apr, Not-Taki ng HYDROcodone-Acetaminophen 5-325 MG 1 tablet as needed Orally every 6 hrs MDD: 4 tabs for 30 days Jun, Active Betamethasone Dipropionate Aug 0.05 % 1 application Ex ternally to arms, legs, and trunk (large area) bid for 30 Days Active Plavix 75 MG 1 tablet Orally Once a day for 30 day(s) Not-Taking Pantoprazole Sodium 40 MG 1 tablet Orally Once a day for 30 day(s) Active Coumadin 5 MG 8mg Orally Daily Activ e Acetaminophen 500 MG 2 tablets as needed Orally e very 6 hours for pain MDD 3000mg Nov, Active Blood Pressure Monitor - as directed [...] 0.25 MCG 1 capsule Oral 4 X [id number]-L-[id number]--S with dialysis Active Glucagon Emergency 1 MG as directed Injection daily as needed Dec, Active Calcium Acetate 667 MG 3 tab Orally Three times a day Active Full Kit Nebulizer Set - as directed dx J44.9 (COPD) Daily for 9 9 months Jan, Active PROCEDURES No Information RESULTS No Results REASON FOR VISIT high sugar, stomach issues MEDICAL (GENERAL) HISTORY Type Description Date Medical [...] hrs MDD: 4 tabs for 30 days Jun, Gabapentin 100 MG 1 capsule Orally Once a day for 30 Days Apr Next Appt Details Provider Name:Crescencio Pelletier, 2021-09-11 01: 00:00 PM, [address] [facility], , [place], [address], Provider Name:Gianni Polo, 2021-10-02 09:30:00 AM, [address], , [place], [address], Insurance Providers Payer Name Payer Address Payer Phone Insured Name Patient Relati onship to Insured Coverage Start Date Coverage End Date MEDICARE COMPLETE [facility] [address] [address] [facility] [id number] YOVANI VALLEJO self MEDICAID [facility] [address] [facility] [address] YOVANI VALLEJO self
--- OUTSIDE RECORDS SUMMARY | 2021-09-27 15:21 | CCD | Continuity of Care Document ---
Author Author Nile CHAVEZ MD Organization Unknown Address [address] [place] [address] Phone [phone] Care Team Providers Care Brim Cutter Name Role Phone Pearl Ramirez M.D. AUTM [phone] Danny Pat MD (WTN) AUTM [phone] Nile Castillo AUTM [phone] Gurmeet Holm AUTM [phone] Yelena/Yoshi/Raffi - Clinical Pathology/Laboratory Medici ne AUTM [phone] Crescencio Pelletier DO AUTM [phone] Problems Active Problems Provider Date Anemia due to chronic blood loss Eliel Chavez MD Onset: 05/15/2013 Celiac disease Eliel Chavez MD Onset: 05/15/2013 Iron deficiency anemia Eliel Chavez MD Onset: 05/15/2013 Obstructive sleep apnea syndrome Maryam Lopez, A.N.P. Onset: 01/09/2014 Disturbance of consciousness Maryam Lopez, A.N.P. Onse t: 08/16/2013 Sleep apnea Maryam Lopez, A.N.P. Onset: 2012 Social History Type Date Description Comments Sex Unknown ETOH Use Denies alcohol use Tobacco Use Start: Unknown End: Patient is a former smoker 3PPD X15 YRS Recreational Drug Use Denies Drug Use Tobacco Use Start: Unknown 1995 Smoking Status Reviewed: 11/21/19 Patient is a former smoker 3P PD X15 YRS Allergies and adverse reactions Active Allergies Criticality Reaction | Severity Comments Date Tegretol Unable to assess criticality Anaphylaxis 06/02/2010 Dilantin Unable to assess criticality Anaphylaxis 06/02/2010 Phenobarbital Unable to assess criticality Anaphylaxis 06/02/2010 Demerol Unable to assess criticality Urticaria 06/02/2010 Glucophage Unable to assess criticality RASH 06/02/2010 Penicillin Unable to assess criticality Urticaria 06/02/2010 Levaquin Unable to assess criticality HEADACHE 06/02/2010 Latex Unable to assess criticality 06/02/2010 Triple Antibiotic Unable to assess criticality FACIAL SWELLING 06/02/2010 Ropinirole Unable to assess criticality ELEVATED LIVER ENZYMES 08/16/2013 Pioglitazone Unable to assess criticality EDEMA 08/16/2013 Gabapentin Unable to assess criticality ANEMIA 03/08/2018 Lisinopril Unable to assess criticality RASH 03/08/2018 Rosuvastatin Calcium Unable to assess criticality HEADACHE 03/08/2018 Lyrica Unable to assess criticality EXCESSIVE BURNING 03/08/2018 Dapsone Unable to assess criticality ANEMIA 03/08/2018 Capsaicin Unable to assess criticality EXCESSIVE BURNING 04/05/2018 NSAIDs Unable to assess criticality 09/07/2018 Bee Sting Unable to assess criticality 09/07/2018 Medications Active Medications SIG Qnty Indications Ordering Provide r Date Fleet Enema 7-19GM/118ML Enema use two fleet enemas back to back in am before flexible sigmoidoscopy 1596ml K62.1 Eliel Chavez MD 08/07/2021 Meclizine HCL 12.5mg Tablets 1 three times a day 30 minutes before meals as needed 60tabs Cal May MD 04/06/2018 Nitrostat 0.4mg Tablets Sub a s needed Unknown Humalog Kwikpen 100U nit/ML Solution Pen-Inject Unknown Gabapentin 100mg Capsules 1 tab by mouth bid Unknown Pramipexole Dihydrochloride 0.125mg Tablets 1 by mouth every day Unknown 000 Advair Diskus 250-50mcg/Dose Aeros ol 1 puff twice a day Unknown Bumetanide 2mg Tablets once a day Unknown Calcitriol 0.25mcg Capsules given on dialysis days Unknown Aspirin 81 Low Dose 81mg Chewtabs 1 by mouth --f Unknown Butrans 20mcg/HR Patches Weekly Unknown Clonazepam 0.5mg Tablets Unknown Trazodone HCL 100mg Tablets Unknown Pantoprazole Sodium 40mg Tablets D R twice daily -- one tablet in morning 1/2 hour before breakfast and one tablet prior to bedtime. total course 3 months. Unknown Zofran 4mg Tablets 1 tab by mouth 1 to 2 times daily before meals. take only when having nausea.. Unknown Entresto 24-26mg Tablets liudmila y Unknown Donepezil HCL 10mg Tablets take 1 tablet by mouth once daily in the morning Unknown Bisoprolol Fumarate 5mg Tablets 1 tab by mouth every day Unknown Coumadin 5mg Tablets [address] Unknown Clobetasol Propionate 0.05% Cream apply to affected area twice a day as needed Unknown [place] 5-325mg Tablets 1 by mouth q6hrs as needed for pain [facility] Unknown Fish Oil 1000mg Capsules 1 tab by mouth three times a day Unknown Novolog Flexpen 100U nit/ML Solution Pen-Inject 5 Units Am, 8 Units Noon, 5 Units PM Unkn own Miralax 3350NF Packet take 17 gm per dose mixed with water twice a day Unknown Tamsulosin HCL 0.4mg Capsules every day Unknown Ferrous Sulfate 325(65Fe) mg Table ts 1 by mouth a day Unknown Lipitor 40mg Tablets 1 po qd Unknown Drisdol 34731Nlwq Capsules 1 tab weekly Unknown Lantus Solostar 100U nit/ML Solution Pen-Inject 5 Units Am, 8 Units PM Unknown Ventolin HFA 108(90Base) mcg/ac Ae rosol 2 puffs q4 hour prn with spacer 1units Unknown Flonase Allergy Relief 50mcg/Act Suspension 1 sprays per nostril daily 9.900ml Unknown 0 Albuterol Sulfate (2 .5mg/3ML) 0.083% Nebulizer 1 twice a day as needed 1month Unknown 00/0 CPAP 5cm - [place] Unknown Immunizations CPT Code Status Date Vaccine Lot # [id number] Given 09/04/2014 Influenza Virus Split 3 Yrs And Above For Intramuscular Use Vital Signs Date Vital Result Comment 08/07/2021 10:11am BP Systolic 155 mmHg BP Diastolic 74 mmHg Height 69 inches 5'9" Weight 182.00 lb BMI (Body Mass Index) 26.9 kg/m2 [place] Body Weight 160 lb Weight 82.555 kg BSA (Body Surface Area) 1.98 m2 11/07/2020 9:36am BP Systolic 131 mmHg BP Diastolic 65 mmHg Height 69 inches 5'9" Weight 185.00 lb BMI (Body Mass Index) 27.3 kg/m2 Jerome Body Weight 160 lb Weight 83.916 kg BSA (Body Surface Area) 2.00 m2 Results Description No Information Available Procedures Date Code Description Status 08/07/2021 95049 Office/Outpatient Established Lo w MDM 20-29 Min Completed Medical Devices Description No Information Available Encounters Type Date Location Provider Dx Diagnosis Office Visit 08/07/2021 10:30a [facility] Eliel Chavez MD K62.1 Rectal polyp K22.70 [place]'s esophagus without dysplasia K90.0 Celiac disease Assessments Date Code Description Provider 08/07/2021 K62.1 Rectal polyp Eliel Chavez MD 08/07/2021 K22.70 [place]'s esophagus without dysp lasia Eliel Chavez MD 08/07/2021 K90.0 Celiac disease Eliel Chavez MD Plan of Treatment 08/07/2021 - Eliel Chavez MD* K62.1 Rectal polyp * K22.70 Medina's esophagus without dysplasia * K90.0 Celiac disease * * New Medication:* Fleet Enema 7-19 GM/118ML * New Orders:* Flexible Sigmoidoscopy, Ordered: 08/07/21 * Recommendations:* flex sig to review rectal polypectomy site (HGD polyp removal) Functional Status Description No Information Available Mental Status Description No Information Available Referrals Description No Information Available
--- OUTSIDE RECORDS SUMMARY | 2021-09-27 15:21 | CCD | Continuity of Care Document ---
Author Author Nile VALLES M.D. Organization Unknown Address [address] [place] [address] Phone [phone] Care Team Providers Care Card Mounter Name Role Phone Crescencio Pelletier M.D. AUTM [phone] Problems Active Problems Provider Date Restless legs Chris Valles M.D. Onset: 12/28/2019 Periodic limb movement disorder Chris Valles M.D. Onset: 0 12/28/2019 Myoclonus Chris Valles M.D. Onset: 12/28/2019 Abnormal gait Chris Valles M.D. Onset: 12/28/2019 Nervous system symptoms Chris Valles M.D. 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 Onset: 12/28/2019 Headache Chris Valles M.D. Onset: 12/28/2019 Mild cognitive disorder Chris Valles M.D. Onset: 0 Social History Type Date Description Comments Sex Unknown Tobacco Use Start: Unknown End: Unknown Patient is a former smoker Allergies and adverse reactions Active Allergies Criticality Reaction | Severity Comments Date Tegretol Unable to assess criticality 12/28/2019 Lyrica Unable to assess criticality 12/28/2019 Gabapentin Unable to assess criticality 12/28/2019 Dilantin Unable to assess criticality 12/28/2019 Phenobarbital Unable to assess criticality 12/28/2019 Medications Active Medications SIG Qnty Indications Ordering Provide r Date Pramipexole Dihydrochloride 0.5mg Tablets take 1 tablet by mouth every morning at 11am, and 2 tablets every night at bedtime at 11pm. maximum daily dose is 3 tablets 270tabs Chris Valles M.D. 06/20/2020 Donepezil HCL 10mg Tablets take 1 tablet by mouth every morning. maximum daily dose is 1 90tabs Chris Valles M.D. 04/11/2020 Clonazepam 0.5mg Tablets 1 Tab po bid at 11am and 11pm. 30tabs Chris Valles M.D. 02/08/2020 Immunizations Description No Information Available Vital Signs Date Vital Result Comment 12/28/2019 12:44pm BP Systolic 125 mmHg BP Diastolic 80 mmHg Heart Rate 76 /min Respiratory Rate 14 /min Height 68 inches 5'8" Weight 171.00 lb BMI (Body Mass Index) 26.0 kg/m2 [place] Body Weight 154 lb Results Description No Information Available Procedures Date Code Description Status 08/26/2021 71769 Office/Outpatient Established Mo d MDM 30-39 Min Completed Medical Devices Description No Information Available Encounters Type Date Location Provider Dx Diagnosis Office Visit 08/26/2021 1:45p [facility] G25.3 Myoclonus R29.6 Repeated falls G31.84 Mild cognitive impairment, s o stated R26.81 Unsteadiness on feet G25.81 Restless legs syndrome G47.61 Periodic limb movement disor valdez E11.42 Type 2 diabetes mellitus wit h diabetic polyneuropathy Assessments Date Code Description Provider 08/26/2021 G25.3 Myoclonus Chris Valles M.D. 08/26/2021 R29.6 Repeated falls Chris Valles M.D. 08/26/2021 G31.84 Mild cognitive impairment, so st ated Chris Valles M.D. 08/26/2021 R26.81 Unsteadiness on feet Chris Valles M.D. 08/26/2021 G25.81 Restless legs syndrome Chris Ryan i, M.D. 08/26/2021 G47.61 Periodic limb movement disorder Chris Valles M.D. 08/26/2021 E11.42 Type 2 diabetes mellitus with di abetic polyneuropathy Chris Valles M.D. Plan of Treatment Future Appointment(s):* 01/13/2022 11:15 am - Chris Valles M.D. at Main office - [place] Functional Status Description No Information Available Mental Status Description No Information Available Referrals Description No Information Available
--- OUTSIDE RECORDS SUMMARY | 2021-09-27 15:21 | CCD | Continuity of Care Document ---
Author Author Nile CHAVEZ MD Organization Unknown Address [address] [place] [address] Phone [phone] Care Team Providers Care Captain Waiter Name Role Phone Pearl Ramirez M.D. AUTM [phone] Danny Pat MD (WTN) AUTM [phone] Nile Castillo AUTM [phone] Gurmeet Holm AUTM [phone] Yelena/Yoshi/Raffi - Clinical Pathology/Laboratory Medici ne AUTM [phone] Crescencio Pelletier DO AUTM [phone] Problems Active Problems Provider Date Anemia due [...] area twice a day as needed Unknown [place] 5-325mg Tablets 1 by mouth q6hrs as [...] 40mg Tablets 1 po qd Unknown Drisdol [id number] Capsules 1 tab weekly Unknown Lantus Solostar [...] CPT Code Status Date Vaccine Lot # [id number] Given 09/04/2014 Influenza Virus Split 3 Yrs And Above For Intramuscular Use Vital Signs Date Vital Result Comment 08/07/2021 10:11am BP Systolic 155 mmHg BP Diastolic 74 mmHg Height 69 inches 5'9" Weight 182.00 lb BMI (Body Mass Index) 26.9 kg/m2 [place] Body Weight 160 lb Weight 82.555 kg BSA (Body Surface Area) 1.98 m2 11/07/2020 9:36am BP Systolic 131 mmHg BP Diastolic 65 mmHg Height 69 inches 5'9" Weight 185.00 lb BMI (Body Mass Index) 27.3 kg/m2 [place] Body Weight 160 lb Weight 83.916 kg BSA (Body Surface Area) 2.00 m2 Results Description No Information Available Procedures Date Code Description Status 08/07/2021 05057 Office/Outpatient Established Lo w MDM 20-29 Min Completed Medical Devices Description No Information Available Encounters Type Date Location Provider Dx Diagnosis Office Visit 08/07/2021 10:30a [facility] Eliel Chavez MD K62.1 [...]
--- OUTSIDE RECORDS SUMMARY | 2021-09-27 15:21 | CCD ---
Author Author [facility] Organization [facility] Address Unknown Phone Unavailable Care Team Providers Care Computer Systems Analyst Name Role Phone Crescencio Pelletier Unavailable PROBLEMS Type Condition ICD9-CM Code [id number] Code Onset Dates Condition S tatus W/U Status Risk SNOMED Code Notes Problem Essential (primary) hypertension I10 Active conf irmed 44731181 Problem Allergic rhinitis, unspecifi ed allergic rhinitis trigger, unspecified rhinitis seasonality J30.9 Active confirmed 40833047 Problem Chronic obstructive pulmonary disease, unspecified COPD ty pe J44.9 Active confirmed 68015682 Problem Diabetic peripheral neuropathy E11.42 Active confir med 979243593 Problem Chronic prescription opiate use Z79.891 Active confirmed 117537949 Problem COPD exacerbation J44.1 Active confirmed 19 5672439 Problem Anemia of chronic disease D63.8 Active confirmed 526705326 Problem Globus sensation F45.8 Active confirmed 888 50784 Problem Essential hypertension, hypertension with unspecified goal I10 Active confirmed 14797527 Problem Hearing loss, unspecified hearing loss type, uns pecified laterality H91.90 Active confirmed 78565543 Problem DM2 (diabetes mellitus, type 2) E11.9 Active confi rmed 71035714 Problem Anemia in other chronic diseases classified elsewhere D63.8 Active confirmed 511279446 Problem Mixed hyperlipidemia E78.2 Active confirmed 950739822 Problem Chronic obstructive pulmonary disease, unspecified J44.9 Active confirmed 07649517 Problem Restless legs syndrome G25.81 Active confirmed 32558801 Problem 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 Active confirmed 94819781 Problem Type 2 diabetes 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, unspecified CKD stage, unspecified whether half-way insulin use E11.22 Active confirmed 33579443 Problem Insomnia G47.00 Active confirmed 233952251 Problem Vitamin D deficiency E55.9 Active confirmed 34828736 Problem Gastroesophageal reflux disease without esophagitis K21.9 Active confirmed 870164308 Problem Gastroesophageal reflux disease, esophagitis pre sence not specified K21.9 Active confirmed 195199888 Problem Iron deficiency anemia, unspecified D50.9 Acti ve confirmed 48985331 Problem Celiac disease K90.0 Active confirmed 27224 1005 Problem Encounter for therapeutic drug level monitoring Z5 1.81 Active confirmed 601719123 Problem Low back pain M54.5 Active confirmed 660737 009 Problem Hx of deep venous thrombosis Z86.718 Active confirm ed 271797192 Problem Frontal sinusitis, unspecified chronicity J32.1 Active confirmed 03990129 Problem [facility] current use of anticoagulant Z79.01 A ctive confirmed 878055226 Problem Esophageal dysphagia R13.10 Active confirmed 76927469 Problem Pulmonary hypertension I27.20 Active confirmed 44100999 Problem Chronic kidney disease N18.9 Active confirmed 732839778 Problem Situational depression F43.21 Active confirmed 60265286 Problem [facility] (current) use of anticoagulants Z79.01 Active confirmed 782744270 Problem Anemia D64.9 Active confirmed 220135041 Problem End stage renal disease N18.6 Active confirmed 335510388 Problem Dependence on renal dialysis Z99.2 Active confirme d 349566479 Problem Situational mixed anxiety and depressive disorder F43.23 Active confirmed 154869331 Problem Chronic right-sided heart failure I50.812 Active confirmed 18126339 ALLERGIES Allergen (clinical drug ingredient) Drug/Non Drug Allergy do cumented on EMR Reaction Allergy Type Onset Date Status bees Anaphylaxis Non Drug Allergy Active bacitracin / neomycin / polymyxin B Triple Antibiotic([facility] Co de:[address]-49) facial swelling Drug Allergy Active lisinopril Lisinopril(ND Code:[address]-71) rash Drug Allergy Active Crestor headache Non Drug Allergy Active gabapentin gabapentin didn't work Non Drug Allergy Active Latex (for allergy use only) rash Drug Allergy Active carbamazepine Tegretol(ND Code:[address]-23) Anaphylaxis Drug Aller gy Active Lyrica didn't work Non Drug Allergy Active NSAIDS Unknown Non Drug Allergy Active Requip elevated liver enzymes Non Drug Allergy Active Levaquin HEAD ACHE Drug Allergy Active phenytoin Dilantin([facility] Code:[address]-91) Anaphylaxis Drug Allergy Active Glucophage Rash Drug Allergy Active meperidine Demerol([facility] Code:[address]-71) Hives Drug Allergy Active Dapsone Dapsone anemia Non Drug Allergy Active pioglitazone Actos([facility] Code:[address]-31) EDEMA Drug Allergy Active capsacin (topically) excessive burning Non Drug Allergy Active Penicillin (For Allergies Use Only) hives Drug Allerg y Active phenobarbital Phenobarbital([facility] Code:[address]-39) Anaphylaxis Drug Allergy Active ENCOUNTERS from 1950 to 2021-07-23 Encounter Location Date Provider Diagnosis [place] [id number] [facility] [phone] [place] [address] Jun, Crescencio Pelletier IMMUNIZATIONS Vaccine Route Administration [...] Education Language: Question Answer Notes Languages spoken: Hebrew Pentecostalism: Question Answer Notes Pentecost[employer]ism 03 [employer] Sexual Hx: Question Answer Notes Had sex [...] 5min X3 for chest pain Active Pen [place] 31G X 5 MM 1 each intradermally diag co de 250.6 four times a day for 90 day(s) Jul, Active Vitamin D (Ergocalciferol) 07912 UNIT 1 capsule Orally once a week-Mo nday Active Bumetanide 2 MG 1 tab Orally Daily BUMEX Nov, Active Bisoprolol Fumarate 5 MG 1 tablet Orally twice daily Active Procrit 46921 UNIT/ML Injection monthly Active Renvela 0.8 GM [...] 0.25 MCG 1 capsule Oral 4 X eupa-M-L--S with dialysis Active Glucagon Emergency 1 MG as directed Injection daily as needed Dec, Active Calcium Acetate 667 MG 3 tab Orally Three times a day Active Full Kit Nebulizer Set - as directed dx J44.9 (COPD) Daily for 9 9 months Jan, Active PROCEDURES No Information RESULTS No Results REASON FOR VISIT Hydrocodone MEDICAL (GENERAL) HISTORY Type Description Date Medical [...] 30 Days Apr Next Appt Details Provider Name:Gianni Polo, 2021-10-02 09:30:00 AM, [address], , [place], [address], Insurance Providers Payer Name Payer Address Payer Phone Insured Name Patient Relati onship to Insured Coverage Start Date Coverage End Date MEDICAID [email or web address] [address] [facility] [id number] YOVANI VALLEJO self MEDICARE COMPLETE [facility] [address] [address] [facility] [phone] YOVANI VALLEJO self
--- OUTSIDE RECORDS SUMMARY | 2021-09-27 15:21 | CCD ---
Author Author [facility] Organization [facility] Address Unknown Phone Unavailable Care Team Providers Care Roll Capper Name Role Phone Crescencio Pelletier Unavailable PROBLEMS Type Condition ICD9-CM Code [id number] Code Onset Dates Condition S tatus W/U Status Risk SNOMED Code Notes Problem Essential (primary) hypertension I10 Active conf irmed 96805176 Problem Allergic rhinitis, unspecifi ed allergic rhinitis trigger, unspecified rhinitis seasonality J30.9 Active confirmed 30028044 Problem Chronic obstructive pulmonary disease, unspecified COPD ty pe J44.9 Active confirmed 45296178 Problem Diabetic peripheral neuropathy E11.42 Active confir med 500636759 Problem Chronic prescription opiate use Z79.891 Active confirmed 480935487 Problem COPD exacerbation J44.1 Active confirmed 19 1226839 Problem Anemia of chronic disease D63.8 Active confirmed 833614465 Problem Globus sensation F45.8 Active confirmed 888 01068 Problem Essential hypertension, hypertension with unspecified goal I10 Active confirmed 61216024 Problem Hearing loss, unspecified hearing loss type, uns pecified laterality H91.90 Active confirmed 85255059 Problem DM2 (diabetes mellitus, type 2) E11.9 Active confi rmed 34856423 Problem Anemia in other chronic diseases classified elsewhere D63.8 Active confirmed 221280354 Problem Mixed hyperlipidemia E78.2 Active confirmed 809803368 Problem Chronic obstructive pulmonary disease, unspecified J44.9 Active confirmed 30501670 Problem Restless legs syndrome G25.81 Active confirmed 89555238 Problem 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 Active confirmed 47354653 Problem Type 2 diabetes 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, unspecified CKD stage, unspecified whether detention insulin use E11.22 Active confirmed 36828394 Problem Insomnia G47.00 Active confirmed 713996246 Problem Vitamin D deficiency E55.9 Active confirmed 45373941 Problem Gastroesophageal reflux disease without esophagitis K21.9 Active confirmed 977830252 Problem Gastroesophageal reflux disease, esophagitis pre sence not specified K21.9 Active confirmed 082380422 Problem Iron deficiency anemia, unspecified D50.9 Acti ve confirmed 50834882 Problem Celiac disease K90.0 Active confirmed 63615 1005 Problem Encounter for therapeutic drug level monitoring Z5 1.81 Active confirmed 495804611 Problem Low back pain M54.5 Active confirmed 593305 009 Problem Hx of deep venous thrombosis Z86.718 Active confirm ed 173116020 Problem Frontal sinusitis, unspecified chronicity J32.1 Active confirmed 98359714 Problem 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 Z79.01 A ctive confirmed 846331156 Problem Esophageal dysphagia R13.10 Active confirmed 65792987 Problem Pulmonary hypertension I27.20 Active confirmed 67746930 Problem Chronic kidney disease N18.9 Active confirmed 505365016 Problem Situational depression F43.21 Active confirmed 20536847 Problem long-term (current) use of anticoagulants Z79.01 Active confirmed 576522399 Problem Anemia D64.9 Active confirmed 403133091 Problem End stage renal disease N18.6 Active confirmed 421110849 Problem Dependence on renal dialysis Z99.2 Active confirme d 155260225 Problem Situational mixed anxiety and depressive disorder F43.23 Active confirmed 726285238 Problem Chronic right-sided heart failure I50.812 Active confirmed 19652405 ALLERGIES Allergen (clinical drug ingredient) Drug/Non Drug Allergy do cumented on EMR Reaction Allergy Type Onset Date Status Requip elevated liver enzymes Drug Allergy Active capsacin (topically) excessive burning Non Drug Allergy Active bacitracin / neomycin / polymyxin B Triple Antibiotic([facility] Co de:[address]-37) facial swelling Drug Allergy Active lisinopril Lisinopril([facility]C Code:[address]-51) rash Drug Allergy Active phenytoin Dilantin([facility] Code:[address]-13) Anaphylaxis Drug Allergy Active meperidine Demerol([facility] Code:[address]-31) Hives Drug Allergy Active Latex Latex rash Drug Allergy Active Levaquin HEAD ACHE Drug Allergy Active carbamazepine Tegretol([facility] Code:[address]-26) Anaphylaxis Drug Aller gy Active Glucophage Rash Drug Allergy Active Tolmetin NSAIDs Unknown Drug Allergy Active dapsone Dapsone([facility] Code:[address]-15) anemia Drug Allergy Active rosuvastatin Crestor([facility] Code:[address]-34) headache Drug Allergy Active Bee Sting Anaphylaxis Drug Allergy Active gabapentin Gabapentin([facility] Code:[address]-07) didn't work Drug Allerg y Active phenobarbital Phenobarbital([facility] Code:[address]-37) Anaphylaxis Drug Allergy Active pioglitazone Actos([facility] Code:[address]-07) EDEMA Drug Allergy Active Penicillin (For Allergies Use Only) hives Drug Allerg y Active pregabalin Lyrica([facility] Code:[address]-20) didn't work Drug Allergy Active ENCOUNTERS from 1950 to 2021-09-05 Encounter Location Date Provider Diagnosis [facility] [address] [place] [address] Aug, 2021 Crescencio Pelletier IMMUNIZATIONS Vaccine Route Administration Date Status Pneumococcal Adult 0.5mL Pneumovax 23 IM Intramuscular Jul 14, 2017 Administered Influenza 6mo & up Fluzone IM Intramuscular Jul 06, 2016 Admi nistered Influenza 6mo & up Fluzone IM Intramuscular Jul 19, 2015 Admi nistered Pneumococcal 0.5mL Prevnar 13 IM Intramuscular Oct [...] Education Language: Question Answer Notes Languages spoken: Maltese Lutheran: Question Answer Notes Lutheran 03 [employer] Sexual Hx: Question Answer Notes Had sex [...] 5min X3 for chest pain Active Pen [place] 31G X 5 MM 1 each intradermally [...] for 30 days Active Vitamin D (Ergocalciferol) 18919 UNIT 1 capsule Orally once a week-Mo nday Active Procrit 04361 UNIT/ML Injection monthly Active Renvela 0.8 GM [...] 0.25 MCG 1 capsule Oral 4 X moll-K-Z-F-S with dialysis Active NovoLOG 100 UNIT/ML as [...] Name:Crescencio Pelletier, 2021-09-11 01: 00:00 PM, [address] [facility], , [place], [address], Provider Name:Gianni Polo, 2021-10-02 09:30:00 AM, [address], , [place], [address], Insurance Providers Payer Name Payer Address Payer Phone Insured Name Patient Relati onship to Insured Coverage Start Date Coverage End Date MEDICARE COMPLETE [facility] [address] [address] [facility] [phone] YOVANI VALLEJO self MEDICAID [facility] [address] [facility] [id number] YOVANI VALLEJO self
--- OUTSIDE RECORDS SUMMARY | 2021-09-27 15:21 | CCD ---
Author Author [facility] Organization [facility] Address Unknown Phone Unavailable Care Team Providers Care Miller Rod Mill Name Role Phone Crescencio Pelletier Unavailable PROBLEMS Type Condition ICD9-CM Code OCG75-YJ Code Onset Dates Condition S tatus W/U Status Risk SNOMED Code Notes Problem Essential (primary) hypertension I10 Active conf irmed 06664824 Problem Allergic rhinitis, unspecifi ed allergic rhinitis trigger, unspecified rhinitis seasonality J30.9 Active confirmed 69970856 Problem Chronic obstructive pulmonary disease, unspecified COPD ty pe J44.9 Active confirmed 97755440 Problem Diabetic peripheral neuropathy E11.42 Active confir med 402695055 Problem Chronic prescription opiate use Z79.891 Active confirmed 434406685 Problem COPD exacerbation J44.1 Active confirmed 19 9147378 Problem Anemia of chronic disease D63.8 Active confirmed 281062765 Problem Globus sensation F45.8 Active confirmed 888 80203 Problem Essential hypertension, hypertension with unspecified goal I10 Active confirmed 78768879 Problem Hearing loss, unspecified hearing loss type, uns pecified laterality H91.90 Active confirmed 43438823 Problem DM2 (diabetes mellitus, type 2) E11.9 Active confi rmed 82619097 Problem Anemia in other chronic diseases classified elsewhere D63.8 Active confirmed 119834871 Problem Mixed hyperlipidemia E78.2 Active confirmed 649541950 Problem Chronic obstructive pulmonary disease, unspecified J44.9 Active confirmed 30116720 Problem Restless legs syndrome G25.81 Active confirmed 35285164 Problem 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 Active confirmed 37967957 Problem Type 2 diabetes 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, unspecified CKD stage, unspecified whether longterm insulin use E11.22 Active confirmed 14298313 Problem Insomnia G47.00 Active confirmed 195667559 Problem Vitamin D deficiency E55.9 Active confirmed 06741904 Problem Gastroesophageal reflux disease without esophagitis K21.9 Active confirmed 280697774 Problem Gastroesophageal reflux disease, esophagitis pre sence not specified K21.9 Active confirmed 415717374 Problem Iron deficiency anemia, unspecified D50.9 Acti ve confirmed 74123661 Problem Celiac disease K90.0 Active confirmed 16430 1005 Problem Encounter for therapeutic drug level monitoring Z5 1.81 Active confirmed 227200437 Problem Low back pain M54.5 Active confirmed 632141 009 Problem Hx of deep venous thrombosis Z86.718 Active confirm ed 677518688 Problem Frontal sinusitis, unspecified chronicity J32.1 Active confirmed 95940087 Problem 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 A ctive confirmed 219849256 Problem Esophageal dysphagia R13.10 Active confirmed 98948156 Problem Pulmonary hypertension I27.20 Active confirmed 46667668 Problem Chronic kidney disease N18.9 Active confirmed 456162954 Problem Situational depression F43.21 Active confirmed 59824047 Problem longterm (current) use of anticoagulants Z79.01 Active confirmed 949452256 Problem Anemia D64.9 Active confirmed 032815960 Problem End stage renal disease N18.6 Active confirmed 331624766 Problem Dependence on renal dialysis Z99.2 Active confirme d 421009582 Problem Situational mixed anxiety and depressive disorder F43.23 Active confirmed 810141411 Problem Chronic right-sided heart failure I50.812 Active confirmed 95461640 ALLERGIES Allergen (clinical drug ingredient) Drug/Non Drug Allergy do cumented on EMR Reaction Allergy Type Onset Date Status Requip elevated liver enzymes Drug Allergy Active capsacin (topically) excessive burning Non Drug Allergy Active bacitracin / neomycin / polymyxin B Triple Antibiotic([facility] Co de:[address]-94) facial swelling Drug Allergy Active lisinopril Lisinopril([facility] Code:[address]-23) rash Drug Allergy Active phenytoin Dilantin([facility] Code:[address]-15) Anaphylaxis Drug Allergy Active meperidine Demerol([facility] Code:[address]-23) Hives Drug Allergy Active Latex Latex rash Drug Allergy Active Levaquin HEAD ACHE Drug Allergy Active carbamazepine Tegretol([facility] Code:[address]-39) Anaphylaxis Drug Aller gy Active Glucophage Rash Drug Allergy Active Tolmetin NSAIDs Unknown Drug Allergy Active dapsone Dapsone([facility] Code:[address]-31) anemia Drug Allergy Active rosuvastatin Crestor([facility] Code:[address]-09) headache Drug Allergy Active Bee Sting Anaphylaxis Drug Allergy Active gabapentin Gabapentin([facility] Code:[address]-51) didn't work Drug Allerg y Active phenobarbital Phenobarbital([facility] Code:[address]-53) Anaphylaxis Drug Allergy Active pioglitazone Actos([facility] Code:[address]-74) EDEMA Drug Allergy Active Penicillin (For Allergies Use Only) hives Drug Allerg y Active pregabalin Lyrica([facility] Code:[address]-79) didn't work Drug Allergy Active ENCOUNTERS from 1950 to 2021-08-22 Encounter Location Date Provider Diagnosis [address] [phone] [place] [address] Jul, [facility] IMMUNIZATIONS Vaccine Route Administration Date Status Pneumococcal [...] Language: Question Answer Notes Languages spoken: Maltese Taoism: Question Answer Notes Taoism 03 Buddhism Sexual Hx: Question Answer Notes Had sex [...] weekly prior to dialysis COREEN Nov, Active Lipitor 40 mg 1 tablet Orally Once a day for 90 days Active Flonase Allergy Relief 50 MCG/ACT 2 sprays in each nos tril Nasally Daily for 30 days Active NovoLOG 100 UNIT/ML as directed Subcutaneous [...] Twice a day for 30 day(s) Active Tamsulosin HCl 0.4 MG 1 capsule 30 minutes after t he same meal each day Orally Once a day FLOMAX Active Nitroglycerin 0.4 MG as directed Sublingual Q 5min X3 for chest pain Active Pen Tolstoy 31G X 5 MM 1 each intradermally diag co de 250.6 four times a day for 90 day(s) Jul, Active Meclizine HCl 12.5 MG 2 tablets as needed Orally O nce a day as needed for vertigo prn Jul, Active MiraLax - 1 packet mixed with 8 ounces of fluid or ally twice daily for 30 days Active Proventil HFA 108 (90 Base) MCG/ACT 2 puffs Inhalation every 4 hours as needed for 90 days Active Bumetanide 2 MG 1 tab Orally Daily BUMEX Nov, Active HYDROcodone-Acetaminophen 5-325 MG 1 tablet as needed Orally every 6 hrs MDD: 4 tabs for 30 days Jul, Active Prolia 60 MG/ML as directed Subcutaneous every 6 months Active Lantus 100 UNIT/ML twice a day Subcutaneous 8 u nits in am and 5 units at bedtime Active Fish Oil 1000 MG 1 cap(s) Orally three times a day Active Vitamin D (Ergocalciferol) 25513 UNIT 1 capsule Orally once a week-Mo nday Active Acetaminophen 500 MG 2 tablets as needed Orally e very 6 hours for pain MDD 3000mg Nov, Active Bisoprolol Fumarate 5 MG 1 tablet Orally twice daily Active Procrit 23980 UNIT/ML Injection monthly Active Renvela 0.8 GM [...] needed for nausea for 30 days Active Blood Pressure Monitor - as directed [...] 0.25 MCG 1 capsule Oral 4 X [id number]--[id number] with dialysis Active Glucagon Emergency 1 MG [...] Name:Crescencio Pelletier, 2021-09-11 01: 00:00 PM, [address] [facility], , [place], [address], Provider Name:Gianni Polo, 2021-10-02 09:30:00 AM, [address], , [place], [address], Insurance Providers Payer Name Payer Address Payer Phone Insured Name Patient Relati onship to Insured Coverage Start Date Coverage End Date MEDICAID Project [employer] [address] [facility] [id number] YOVANI VALLEJO self MEDICARE COMPLETE [facility] [address] [address] [facility] [id number] YOVANI VALLEJO self
--- OUTSIDE RECORDS SUMMARY | 2021-09-27 15:21 | CCD | Continuity of Care Document ---
Author Author Nile GARCIA P.A. Organization Unknown Address [address] [place] [address], [facility] [address] [place] [address] Phone [phone] Care Team Providers Care Worsted Winder Name Role Phone Pedro Bojorquez MD AUTM [phone] Shan Harrell DO AUTM [phone] Problems Active Problems Provider Date Disorder of bursa of shoulder region Ons et: 08/15/1999 Type 2 diabetes mellitus Onset: 09/25/20 15 Essential hypertension Onset: 09/25/2015 Pure hypercholesterolemia Onset: 015 Social History Type Date Description Comments Sex Unknown ETOH Use Denies alcohol use Tobacco Use Start: Unknown End: Unknown Patient is a former smoker Allergies, Adverse Reactions, Alerts Active Allergies Criticality Reaction | Severity Comments Date Actos Unable to assess criticality 10/02/2015 Demerol Unable to assess criticality 10/02/2015 Dilantin Unable to assess criticality 10/02/2015 Glucophage Unable to assess criticality 10/02/2015 Levaquin Unable to assess criticality 10/02/2015 Phenobarbital Unable to assess criticality 10/02/2015 Tegretol Unable to assess criticality 10/02/2015 Penicillin Unable to assess criticality 10/02/2015 Triple Antibiotic Oi Unable to assess criticality 10/02/2015 Requip Unable to assess criticality 10/02/2015 Latex Unable to assess criticality 10/02/2015 Crestor Unable to assess criticality 10/02/2015 Lyrica Unable to assess criticality 10/02/2015 Lisinopril Unable to assess criticality 10/02/2015 Gabapentin Unable to assess criticality 10/02/2015 Medications Active Medications SIG Qnty Indications Ordering Provide r Date Medrol 4mg Tablets dose zaire, take as directed on sheet 1tabs M25.522 Kelvin Ji MD 12/03/2020 Prednisolone Acetate 1% Suspension Remove Patch And Instill 1 Drop Into The Right Eye qid. Use Day Of Surgery Unknown Atorvastatin Calcium 40mg Tablets Take 1 Tablet By Mouth Every Day Unknown Lactulose 10GM/15ML Solution Take 30 ML By Mouth Twice Daily. May Increase To 45 ML 2 Times A Day If Necessary. Constipation Unknown Lidocaine-Prilocaine 2.5-2.5% Crea m Apply Small Amount To Access Site (Avf) 30 Minutes Before Dialysis. Cover With Occlusive Dressing (Saran Wrap) Unknown BD Pen Needle/Mini/Ultra-Fine/31G X 5mm 31G X 5 mm Misc Use as Directed Four Times Daily. Unknown Warfarin Sodium 1mg Tablets Take 3 Tablets By Mouth Once Daily as Directed Along With 5MG Tablet Unknown Ondansetron 4mg Tablets Dispers Dissolve 1 Tablet On The Tongue Three Times Daily as Needed For Nausea Unknown Pramipexole Dihydrochloride 0.5mg Tablets Unknown Clonazepam 0.5mg Tablets Chris Valles MBBS Donepezil HCL 10mg Tablets Take 1 Tablet By Mouth Every Morning. Maximum Daily Dose Is 1 Unknown Trazodone HCL 100mg Tablets Pearl Ramirez MD Sevelamer Carbonate 0.8gm Packet Vigorously Mix Contents Of 1 Packet In Water (It Will Not Dissolve) And Drink 3 Times Daily With Meals Unknown 0 Pantoprazole Sodium 40mg Tablets D R Take 1 Tablet By Mouth Twice Daily Unknown Bumetanide 2mg Tablets Pearl Ramirez MD Valsartan 40mg Tablets Danny Pat MD Calcium Acetate (Phos Binder) 667mg Capsules Pearl Ramirez MD 0 Moxifloxacin HCL 0.5% Solution Instill 1 GTT Into Right Eye qid Start Three Days Prior To Surgery. Unknown Warfarin Sodium 5mg Tablets Shan Harrell DO Insulin Lispro (1 Unit Dial) 100Unit/ML Solution Pen-Inject Inject as Directed tid MDD 30 Units U nknown Clopidogrel Bisulfate 75mg Tablets Danny Pat MD Duloxetine HCL 30mg Caps DR Zarate Take 1 C PO Once A Day Starting After 7 Days Of 40MG Unkn own Doxepin HCL 10mg Capsules Shan Harrell, DO Pramipexole Dihydrochloride 0.25mg Tablets TK 1 T PO bid Unknown Augmented Betamethasone Dipropionate 0.05% Cream Unknown Isosorbide Mononitrate ER 30mg Tablets ER 24HR Danny Pat MD Onetouch Verio Strips Test q id Utd Unknown Azelastine HCL (Nasal) 0.1% Soluti on Instill 1 [place] In Each Nostril Daily Unknown Pramipexole Dihydrochloride 0.125mg Tablets Take 1 T PO AT Noon And One AT Bedtime MDD 2 Unknown Levofloxacin 500mg Tablets Edwina Orr MD Aspirin 81mg Chewtabs CRYPTOLOGICAL TECHNICIAN 1 T PO D P Unknown Incruse Ellipta 62.5mcg/Inh Aeroso l 1 inhalation daily Unknown Coumadin 7.5mg Tablets Unknown Movantik Tablets Unknown Fish Oil Capsules DR Unknown Lisinopril 40mg Tablets Unknown Albuterol Sulfate (2 .5mg/3ML) 0.083% Nebulizer as needed Unknown Lipitor 10mg Tablets 1 by mouth every day Unknown Fluticasone Propionate 50mcg/Act Suspension 2 puffs a day Unknown Proventil HFA 108(90Base) mcg/Act Aerosol Unknown Temazepam 30mg Capsules Unknown Novolog 100Unit/ML Solution inject 90 units three times a day as directed (maximum daily dose =270 units) Unknown Lantus 100Unit/ML Solution use as directed-20u every day Unknown 0 Patanol 0.1% Solution Unknown Amlodipine Besylate 5mg Tablets 1 by mouth every day Unknown Ferrous Sulfate 325(65Fe) mg Table ts 1 by mouth every day Unknown Gabapentin 100mg Capsules Take 1 Capsule By Mouth Every Day Unknown Montelukast Sodium 10mg Tablets 1 by mouth every day Unknown Ropinirole HCL 0.5mg Tablets take 1 tablet by mouth at bedtime Unknown Omeprazole 20mg Capsules DR 1 by mouth every day Unknown Tamsulosin HCL 0.4mg Capsules 1 by mouth every day Unknown Ondansetron HCL 4mg Tablets 1 tab three times a day as needed Unknown Miralax 3350NF Powder use 17grams daily as needed for constipation in juice or water. Unkno wn Buprenorphine 20mcg/HR [place] Weekly Unknown Meclizine HCL 25mg Tablets one tab by mouth every 8 hours as needed for dizziness Unkn own Saline Nasal [place] 0.65% Solution 6-8x/d as directed Unknown Duloxetine HCL 60mg Caps DR Part 1 by mouth every day Unknown Entresto 24-26mg Tablets Pearl Ramirez MD Bisoprolol Fumarate 5mg Tablets Pearl Ramirez MD Hydrocodone-Acetaminophen 5-325mg Tablets Shan Harrell, DO Advair HFA 230-21mcg/Act Aerosol Shan Harrell, DO Immunizations Description No Information Available Vital Signs Date Vital Result Comment 04/17/2021 4:28pm Body Temperature 97.3 F Height 66.5 inches 5'6.50" Weight 179.00 lb BMI (Body Mass Index) 28.5 kg/m2 04/17/2021 3:45pm Body Temperature 97.3 F Height 66.5 inches 5'6.50" Weight 179.00 lb BMI (Body Mass Index) 28.5 kg/m2 Results Description No Information Available Procedures Date Code Description Status 07/15/2021 Inject/Drain Joint/Bursa Major C ompleted 04/17/2021 16094 Office/Outpatient Established Lo w MDM 20-29 Min Completed 04/17/2021 71612 X-Ray Knee Complete W/Obliques & Tunnel And/Or Standing Views Completed 04/17/2021 Inject/Drain Joint/Bursa Major C ompleted Medical Devices Description No Information Available Encounters Type Date Location Provider Dx Diagnosis Office Visit 07/15/2021 3:45p [facility] M17.0 Bilateral primary osteoarthritis of knee Office Visit 04/17/2021 4:15p [facility] M17.0 Bilateral primary osteoarthritis of knee Assessments Date Code Description Provider 07/15/2021 M17.0 Bilateral primary osteoarthritis of knee Diane Morales 04/17/2021 M17.0 Bilateral primary osteoarthritis of knee Diane Morales Plan of Treatment 07/15/2021 - Candida Morales.* M17.0 Bilateral primary osteoarthritis of knee* Follow up:* 3 month estevan knee cortisone inj with MKM ( per pat request ) Functional Status Description No Information Available Mental Status Description No Information Available Referrals Description No Information Available
--- OUTSIDE RECORDS SUMMARY | 2021-09-27 15:21 | CCD | Continuity of Care Document ---
Author Author Nile CHAVEZ MD Organization Unknown Address [address] [place] [address] Phone [phone] Care Team Providers Care Asphalt Screed Operator Name Role Phone Pearl Ramirez M.D. AUTM [phone] Danny Pat MD (WTN) AUTM [phone] Nile Castillo AUTM [phone] Gurmeet Holm AUTM [phone] Yelena/Yoshi/Raffi - Clinical Pathology/Laboratory Medici ne AUTM [phone] Crescencio Pelletier DO AUTM [phone] Problems Active Problems Provider Date Anemia due [...] area twice a day as needed Unknown Kaplan 5-325mg Tablets 1 by mouth q6hrs as [...] 40mg Tablets 1 po qd Unknown Drisdol 45111Cohx Capsules 1 tab weekly Unknown Lantus Solostar [...] CPT Code Status Date Vaccine Lot # [id number] Given 09/04/2014 Influenza Virus Split 3 Yrs And Above For Intramuscular Use Vital Signs Date Vital Result Comment 08/07/2021 10:11am BP Systolic 155 mmHg BP Diastolic 74 mmHg Height 69 inches 5'9" Weight 182.00 lb BMI (Body Mass Index) 26.9 kg/m2 [place] Body Weight 160 lb Weight 82.555 kg BSA (Body Surface Area) 1.98 m2 11/07/2020 9:36am BP Systolic 131 mmHg BP Diastolic 65 mmHg Height 69 inches 5'9" Weight 185.00 lb BMI (Body Mass Index) 27.3 kg/m2 [place] Body Weight 160 lb Weight 83.916 kg BSA (Body Surface Area) 2.00 m2 Results Description No Information Available Procedures Date Code Description Status 08/07/2021 51794 Office/Outpatient Established Lo w MDM 20-29 Min Completed Medical Devices Description No Information Available Encounters Type Date Location Provider Dx Diagnosis Office Visit 08/07/2021 10:30a [facility] Eliel Chavez MD K62.1 [...]
--- OUTSIDE RECORDS SUMMARY | 2021-09-27 15:21 | CCD | Continuity of Care Document ---
Author Author Nile VALLES M.D. Organization Unknown Address [address] [place] [address] Phone [phone] Care Team Providers Care Computer System Validation Specialist Name Role Phone Crescencio Pelletier M.D. 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 at Main office - [place] Functional Status Description No Information Available Mental Status Description No Information Available Referrals Description No Information Available
--- OUTSIDE RECORDS SUMMARY | 2021-09-27 15:22 | CCD ---
Author Author [facility] Organization [facility] Address Unknown Phone Unavailable Care Team Providers Care Crew Boss Name Role Phone RAVEN PATRICK MD Unavailable Unavailable CELINA, RAVEN FITZGERALD Unavailable Unavailable REINDL, RAVEN FITZGERALD Unavailable Unavailable REINAAKASH, RAVEN FITZGERALD Unavailable Unavailable REINAAKASH, RAVEN FITZGERALD Unavailable Unavailable REINAAKASH, RAVEN FITZGERALD Unavailable Unavailable CELINA, RAVEN FITZGERALD Unavailable Unavailable CELINA, RAVEN FITZGERALD Unavailable Unavailable CELINA, RAVEN FITZGERALD Unavailable Unavailable CELINA, RAVEN FITZGERALD Unavailable Unavailable CELINA, RAVEN FITZGERALD Unavailable Unavailable REINRAVEN FINN MD Unavailable Unavailable REINAAKASH, RAVEN FITZGERALD Unavailable Unavailable RAVEN PATRICK MD Unavailable Unavailable REINRAVEN FINN MD Unavailable Unavailable REINDLRAVEN MD Unavailable Unavailable REINRAVEN FINN MD Unavailable Unavailable REINRAVEN FINN MD Unavailable Unavailable RAVEN PATRICK MD Unavailable Unavailable RAVEN PATRICK MD Unavailable Unavailable REINRAVEN FINN MD Unavailable Unavailable REINRAVEN FINN MD Unavailable Unavailable REINRAVEN FINN MD Unavailable Unavailable RVAEN PATRICK MD Unavailable Unavailable RAVEN PATRICK MD Unavailable Unavailable RAVEN PATRICK MD Unavailable Unavailable RAVEN PATRICK MD Unavailable Unavailable RAVEN PATRICK MD Unavailable Unavailable ECLINA, RAVEN FITZGERALD Unavailable Unavailable RAVEN PATRICK MD Unavailable Unavailable RAVEN PATRICK MD Unavailable Unavailable RAVEN PATRICK MD Unavailable Unavailable RAVEN PATRICK MD Unavailable Unavailable REINRAVEN FINN MD Unavailable Unavailable REINDLRAVEN MD Unavailable Unavailable REINDL, RAVEN FITZGERALD Unavailable Unavailable REINDL, RAVEN FITZGERALD Unavailable Unavailable REINDL, RAVEN FITZGERALD Unavailable Unavailable REINDL, RAVEN FITZGERALD Unavailable Unavailable REINDL, RAVEN FITZGERALD Unavailable Unavailable REINDL, RAVEN FITZGERALD Unavailable Unavailable REINDL, RAVEN FITZGERALD Unavailable Unavailable Fish, [facility], PA-C Unavailable Unavailabl e Fish, [facility], PA-C Unavailable Unavailabl e Fish, [facility], PA-C Unavailable Unavailabl e Fish, [facility], PA-C Unavailable Unavailabl e Fish, [facility], PA-C Unavailable Unavailabl e Fish, [facility], PA-C Unavailable Unavailabl e Fish, [facility], PA-C Unavailable Unavailabl e Fish, [facility], PA-C Unavailable Unavailabl e Fish, [facility], PA-C Unavailable Unavailabl e Fish, [facility], PA-C Unavailable Unavailabl e Fish, [facility], PA-C Unavailable Unavailabl e Fish, [facility], PA-C Unavailable Unavailabl e Fish, [facility], PA-C Unavailable Unavailabl e Fish, [facility], PA-C Unavailable Unavailabl e Fish, [facility], PA-C Unavailable Unavailabl e Fish, [facility], PA-C Unavailable Unavailabl e Fish, [facility], PA-C Unavailable Unavailabl e Fish, [facility], PA-C Unavailable Unavailabl e Fish, [facility], PA-C Unavailable Unavailabl e Fish, [facility], PA-C Unavailable Unavailabl e Fish, [facility], PA-C Unavailable Unavailabl e Fish, [facility], PA-C Unavailable Unavailabl e Fish, [facility], PA-C Unavailable Unavailabl e Fish, [facility], PA-C Unavailable Unavailabl e Fish, [facility], PA-C Unavailable Unavailabl e Fish, [facility], PA-C Unavailable Unavailabl e Fish, [facility], PA-C Unavailable Unavailabl e Fish, [facility], PA-C Unavailable Unavailabl e Fish, Bethany Ramirez MPAS, PA-C Unavailable Unavailabl e Fish, Bethany Ramirez MPAS, PA-C Unavailable Unavailabl e Fish, Bethany Ramirez MPAS, PA-C Unavailable Unavailabl e Fish, Bethany Ramirez MPAS, PA-C Unavailable Unavailabl e Fish, Bethany Ramirez MPAS, PA-C Unavailable Unavailabl e Fish, Bethany Ramirez MPAS, PA-C Unavailable Unavailabl e Fish, Bethany Ramirez MPAS, PA-C Unavailable Unavailabl e Fish, Bethany Ramirez MPAS, PA-C Unavailable Unavailabl e MCELHERAN, IMTIAZ PA Unavailable Unavailable MCELHERAN, IMTIAZ PA Unavailable Unavailable MCELHERAN, IMTIAZ PA Unavailable Unavailable MCELHERAN, IMTIAZ PA Unavailable Unavailable MCELHERAN, IMTIAZ PA Unavailable Unavailable MCELHERAN, IMTIAZ PA Unavailable Unavailable MCELHERAN, IMTIAZ PA Unavailable Unavailable MCELHERAN, IMTIAZ PA Unavailable Unavailable MCELHERAN, IMTIAZ PA Unavailable Unavailable MCELHERAN, IMTIAZ PA Unavailable Unavailable MCELHERAN, IMTIAZ PA Unavailable Unavailable MCELHERAN, IMTIAZ PA Unavailable Unavailable MCELHERAN, IMTIAZ PA Unavailable Unavailable MCELHERAN, IMTIAZ PA Unavailable Unavailable MCELHERAN, IMTIAZ PA Unavailable Unavailable MCELHERAN, IMTIAZ PA Unavailable Unavailable MCELHERAN, IMTIAZ PA Unavailable Unavailable MCELHERAN, IMTIAZ PA Unavailable Unavailable MCELHERAN, IMTIAZ PA Unavailable Unavailable MCELHERAN, IMTIAZ PA Unavailable Unavailable MCELHERAN, IMTIAZ PA Unavailable Unavailable MCELHERAN, IMTIAZ PA Unavailable Unavailable MCELHERAN, IMTIAZ PA Unavailable Unavailable MCELHERAN, IMTIAZ PA Unavailable Unavailable MCELHERAN, IMTIAZ PA Unavailable Unavailable MCELHERAN, IMTIAZ PA Unavailable Unavailable MCELHERAN, IMTIAZ PA Unavailable Unavailable MCELHERAN, IMTIAZ PA Unavailable Unavailable MCELHERAN, IMTIAZ PA Unavailable Unavailable AUDREY ANN MD Unavailable Unavailable AUDREY ANN MD Unavailable Unavailable AUDREY ANN MD Unavailable Unavailable AUDREY ANN MD Unavailable Unavailable AUDREY ANN MD Unavailable Unavailable AUDREY ANN MD Unavailable Unavailable AUDREY ANN MD Unavailable Unavailable AUDREY ANN MD Unavailable Unavailable AUDREY ANN MD Unavailable Unavailable AUDREY ANN MD Unavailable Unavailable AUDREY ANN MD Unavailable Unavailable AUDREY ANN MD Unavailable Unavailable AUDREY ANN MD Unavailable Unavailable AUDREY ANN MD Unavailable Unavailable AUDREY ANN MD Unavailable Unavailable AUDREY ANN MD Unavailable Unavailable SETH, AUDRYE FITZGERALD Unavailable Unavailable SETH, AUDREY FITZGERALD Unavailable Unavailable SETH, AUDREY FITZGERALD Unavailable Unavailable SETH, AUDREY FITZGERALD Unavailable Unavailable SETH, AUDREY FITZGERALD Unavailable Unavailable SETH, AUDREY FITZGERALD Unavailable Unavailable SETH, AUDREY FITZGERALD Unavailable Unavailable SETH, AUDREY FITZGERALD Unavailable Unavailable SETH, AUDREY FITZGERALD Unavailable Unavailable SETH, AUDREY FITZGERALD Unavailable Unavailable SETH, AUDREY FITZGERALD Unavailable Unavailable SETH, AUDREY FITZGERALD Unavailable Unavailable SETH, AUDREY FITZGERALD Unavailable Unavailable SETH, AUDREY FITZGERALD Unavailable Unavailable SETH, AUDREY FITZGERALD Unavailable Unavailable SETH, AUDREY FITZGERALD Unavailable Unavailable SETH, AUDREY FITZGERALD Unavailable Unavailable SETH, AUDREY FITZGERALD Unavailable Unavailable SETH, AUDREY FITZGERALD Unavailable Unavailable SETH, AUDREY FITZGERALD Unavailable Unavailable SETH, AUDREY FITZGERALD Unavailable Unavailable SETH, AUDREY FITZGERALD Unavailable Unavailable SETH, AUDREY FITZGERALD Unavailable Unavailable SETH, AUDREY FITZGERALD Unavailable Unavailable SETH, AUDREY FITZGERALD Unavailable Unavailable SETH, AUDREY FITZGERALD Unavailable Unavailable SETH, AUDREY FITZGERALD Unavailable Unavailable SETH, AUDREY FITZGERALD Unavailable Unavailable SETH, AUDREY FITZGERALD Unavailable Unavailable SETH, AUDREY FITZGERALD Unavailable Unavailable SETH, AUDREY FITZGERALD Unavailable Unavailable SETH, AUDREY FITZGERALD Unavailable Unavailable SETH, AUDREY FITZGERALD Unavailable Unavailable SETH, AUDREY FITZGERALD Unavailable Unavailable SETH, AUDREY FITZGERALD Unavailable Unavailable SETH, AUDREY FITZGERALD Unavailable Unavailable SETH, AUDREY FITZGERALD Unavailable Unavailable SETH, AUDREY FITZGERALD Unavailable Unavailable SETH, AUDREY FITZGERALD Unavailable Unavailable SETH, AUDREY FITZGERALD Unavailable Unavailable Clayton, J Shan DO Unavailable Unavailable Clayton, J Shan DO Unavailable Unavailable Clayton, J Shan DO Unavailable Unavailable Clayton, J Shan DO Unavailable Unavailable Clayton, J Shan DO Unavailable Unavailable Clayton, J Shan DO Unavailable Unavailable Clayton, J Shan DO Unavailable Unavailable Clayton, J Shan DO Unavailable Unavailable Clayton, J Shan DO Unavailable Unavailable Clayton, J Shan DO Unavailable Unavailable Clayton, J Shan DO Unavailable Unavailable Clayton, J Shan DO Unavailable Unavailable Clayton, J Shan DO Unavailable Unavailable Clayton, J Shan DO Unavailable Unavailable Clayton, J Shan DO Unavailable Unavailable Clayton, J Shan DO Unavailable Unavailable Clayton, J Shan DO Unavailable Unavailable Clayton, J Shan DO Unavailable Unavailable Clayton, J Shan DO Unavailable Unavailable Clayton, J Shan DO Unavailable Unavailable Clayton, J Shan DO Unavailable Unavailable Clayton, J Shan DO Unavailable Unavailable Clayton, J Shan DO Unavailable Unavailable Clayton, J Shan DO Unavailable Unavailable Clayton, J Shan DO Unavailable Unavailable AliChris MD Unavailable Unavailable Ali, Chris FITZGERALD Unavailable Unavailable Ali, Chris FITZGERALD Unavailable Unavailable Ali, Chris FITZGERALD Unavailable Unavailable Ali, Chris FITZGERALD Unavailable Unavailable Ali, Chris MD Unavailable Unavailable Ali, Chris MD Unavailable Unavailable Ali, Chris MD Unavailable Unavailable Ali, Chris MD Unavailable Unavailable Ali, Chris MD Unavailable Unavailable Ali, Chris Unavailable Unavailable Ali, Chris Unavailable Unavailable Ali, Chris FITZGERALD Unavailable Unavailable Ali, Chris Unavailable Unavailable Ali, Chris MD Unavailable Unavailable Ali, Chris MD Unavailable Unavailable Ali, Chris MD Unavailable Unavailable Ali, Chris MD Unavailable Unavailable Ali, Chris MD Unavailable Unavailable Ali, Chris MD Unavailable Unavailable Ali, Chris MD Unavailable Unavailable Ali, Chris Unavailable Unavailable Ali, Chris MD Unavailable Unavailable Ali, Chris MD Unavailable Unavailable Ali, Chris MD Unavailable Unavailable Ali, Chris MD Unavailable Unavailable Ali, Chris MD Unavailable Unavailable Ali, Chris MD Unavailable Unavailable Ali, Chris Unavailable Unavailable Ali, Chris FITZGERALD Unavailable Unavailable Ali, Chris FITZGERALD Unavailable Unavailable Ali, Chris FITZGERALD Unavailable Unavailable Ali, Chris FITZGERALD Unavailable Unavailable Ali, Chris Unavailable Unavailable Ali, Chris MD Unavailable Unavailable Ali, Chris MD Unavailable Unavailable Ali, Chris FITZGERALD Unavailable Unavailable Ali, Chris FITZGERALD Unavailable Unavailable Ali, Chris FITZGERALD Unavailable Unavailable Ali, Chris FITZGERALD Unavailable Unavailable Ali, Chris MD Unavailable Unavailable Ali, Chris FITZGERALD Unavailable Unavailable Ali, Chris FITZGERALD Unavailable Unavailable Ali, Chris MD Unavailable Unavailable Ali, Chris FITZGERALD Unavailable Unavailable Ali, Chris FITZGERALD Unavailable Unavailable Ali, Chris FITZGERALD Unavailable Unavailable AliChris MD Unavailable Unavailable AliChris MD Unavailable Unavailable Ali, Chris FITZGERALD Unavailable Unavailable AliChris MD Unavailable Unavailable AliChris MD Unavailable Unavailable Jael Grace MD Unavailable Unavailable Jael Grace MD Unavailable Unavailable Jael Grace MD Unavailable Unavailable Jael Grace MD Unavailable Unavailable Jael Grace MD Unavailable Unavailable Jael Grace MD Unavailable Unavailable Jael Grace MD Unavailable Unavailable Jael Grace MD Unavailable Unavailable Jael Grace MD Unavailable Unavailable Jael Grace MD Unavailable Unavailable Jael Grace MD Unavailable Unavailable Jael Grace MD Unavailable Unavailable Jael Grace MD Unavailable Unavailable Jael Grace MD Unavailable Unavailable Jael Grace MD Unavailable Unavailable Jael Grace MD Unavailable Unavailable Fish, Jael Pederson MD Unavailable Unavailable Fish, B Dacia FITZGERALD Unavailable Unavailable Fish, B Dacia FITZGERALD Unavailable Unavailable Fish, B Dacia FITZGERALD Unavailable Unavailable Fish, B Dacia FITZGERALD Unavailable Unavailable Fish, B Dacia FITZGERALD Unavailable Unavailable Fish, B Dacia FITZGERALD Unavailable Unavailable Fish, B Dacia FITZGERALD Unavailable Unavailable Fish, B Dacia FITZGERALD Unavailable Unavailable Fish, B Dacia FITZGERALD Unavailable Unavailable Fish, B Dacia FITZGERALD Unavailable Unavailable Fish, B Dacia FITZGERALD Unavailable Unavailable Fish, B Dacia FITZGERALD Unavailable Unavailable Fish, B Dacia FITZGERALD Unavailable Unavailable Fish, B Dacia FITZGERALD Unavailable Unavailable Fish, B Dacia FITZGERALD Unavailable Unavailable Fish, B Dacia FITZGERALD Unavailable Unavailable Fish, B Dacia FITZGERALD Unavailable Unavailable Fish, B Dacia FITZGERALD Unavailable Unavailable Fish, B Dacia FITZGERALD Unavailable Unavailable Fish, B Dacia FITZGERALD Unavailable Unavailable Fish, B Dacia FITZGERALD Unavailable Unavailable Fish, B Dacia FITZGERALD Unavailable Unavailable Fish, B Dacia FITZGERALD Unavailable Unavailable Fish, B Dacia FITZGERALD Unavailable Unavailable Fish, B Dacia FITZGERALD Unavailable Unavailable Fish, B Dacia FITZGERALD Unavailable Unavailable Fish, B Dacia FITZGERALD Unavailable Unavailable Fish, B Dacia FITZGERALD Unavailable Unavailable Fish, B Dacia FITZGERALD Unavailable Unavailable Fish, B Dacia FITZGERALD Unavailable Unavailable Fish, B Dacia FITZGERALD Unavailable Unavailable Fish, B Dacia FITZGERALD Unavailable Unavailable Fish, B Dacia FITZGERALD Unavailable Unavailable Fish, B Dacia FITZGERALD Unavailable Unavailable Fish, B Dacia FITZGERALD Unavailable Unavailable Fish, B Dacia FITZGERALD Unavailable Unavailable Fish, B Dacia FITZGERALD Unavailable Unavailable Fish, B Dacia FITZGERALD Unavailable Unavailable Fish, B Dacia FITZGERALD Unavailable Unavailable Fish, B Dacia FITZGERALD Unavailable Unavailable Fish, B Dacia FITZGERALD Unavailable Unavailable Fish, B Dacia FITZGERALD Unavailable Unavailable Fish, B Dacia FITZGERALD Unavailable Unavailable Fish, B Dacia FITZGERALD Unavailable Unavailable Fish, B Dacia FITZGERALD Unavailable Unavailable Fish, B Dacia FITZGERALD Unavailable Unavailable Fish, B Dacia FITZGERALD Unavailable Unavailable Fish, B Dacia FITZGERALD Unavailable Unavailable Gissel, J Scott PA-C Unavailable Unavailable Gissel J Scott PA-C Unavailable Unavailable GisselRell Scott PA-C Unavailable Unavailable Gissel, Rell Chavez PA-C Unavailable Unavailable Gissel, Rell Chavez PA-C Unavailable Unavailable Gissel, J Scott PA-C Unavailable Unavailable Gissel, J Scott PA-C Unavailable Unavailable Gissel, J Scott PA-C Unavailable Unavailable Gissel, J Scott PA-C Unavailable Unavailable Gissel, J Scott PA-C Unavailable Unavailable ELROY, A DARRELL DO Unavailable Unavailable ELROY, A DARRELL DO Unavailable Unavailable ELROY, A DARRELL DO Unavailable Unavailable ELROY, A DARRELL DO Unavailable Unavailable ELROY, A DARRELL DO Unavailable Unavailable ELROY, A DARRELL DO Unavailable Unavailable ELROY, A DARRELL DO Unavailable Unavailable ELROY, A DARRELL DO Unavailable Unavailable ELROY, A DARRELL DO Unavailable Unavailable ELROY, A DARRELL DO Unavailable Unavailable ELROY, A DARRELL DO Unavailable Unavailable ELROY, A DARRELL DO Unavailable Unavailable ELROY, A DARRELL DO Unavailable Unavailable ELROY, A DARRELL DO Unavailable Unavailable ELROY, A DARRELL DO Unavailable Unavailable ELROY, A DARRELL DO Unavailable Unavailable ELROY, A DARRELL DO Unavailable Unavailable ELROY, A DARRELL DO Unavailable Unavailable ELROY, A DARRELL DO Unavailable Unavailable ELROY, A DARRELL DO Unavailable Unavailable ELROY, A DARRELL DO Unavailable Unavailable ELROY, A DARRELL DO Unavailable Unavailable ELROY, A DARRELL DO Unavailable Unavailable Re-disclosure Warning The records that you are about to access may contain information from federally-assisted alcohol or drug abuse programs. If such information is present, then the following federally mandated warning applies: This information has been disclosed to you from records protected by federal confidentiality rules (42 CFR part 2). The federal rules prohibit you from making any further disclosure of this information unless further disclosure is expressly permitted by the written consent of the person to whom it pertains or as otherwise permitted by 42 CFR part 2. A general authorization for the release of medical or other information is NOT sufficient for this purpose. The Federal rules restrict any use of the information to criminally investigate or prosecute any alcohol or drug abuse patient.The records that you are about to access may contain highly sensitive health information, the redisclosure of which is protected by Article 27-F of the [facility] Public Health law. If you continue you may have access to information: Regarding HIV / AIDS; Provided by facilities licensed or operated by the [facility] Office of Mental Health; or Provided by the [facility] Office for People With Developmental Disabilities. If such information is present, then the following [facility] mandated warning applies: This information has been disclosed to you from confidential records which are protected by state law. State law prohibits you from making any further disclosure of this information without the specific written consent of the person to whom it pertains, or as otherwise permitted by law. Any unauthorized further disclosure in violation of state law may result in a fine or mcfp sentence or both. A general authorization for the release of medical or other information is NOT sufficient authorization for further disc losure. Allergies and Adverse Reactions Type Description Substance Reaction Status Data Source(s ) Propensity to adverse reactions TRIPLE ANTIBIOTIC OINTMENT T RIPLE ANTIBIOTIC OINTMENT [facility] Propensity to adverse reactions DILANTIN DILANTIN [facility] Propensity to adverse reactions DEMEROL DEMEROL [facility] Propensity to adverse reactions TEGRETOL TEGRETOL [facility] Propensity to adverse reactions LEVAQUIN LEVAQUIN [facility] Propensity to adverse reactions LATEX LATEX [facility] Drug allergy PHENOBARBITAL PHENOBARBITAL [facility] Propensity to adverse reactions PENICILLINS (CLASS) PENICILLINS (CLAS S) [facility] Propensity to adverse reactions SULFAMETHOXAZOLE-TRIMETHOPRI M Sulfamethoxazole-Trimethoprim Active [facility] Propensity to adverse reactions QUINOLONES Quinolones Acti ve [facility] Propensity to adverse reactions POTASSIUM CITRATE potassium citrate Active [facility] Propensity to adverse reactions PENICILLINS Penicillins Ac tive [facility] Propensity to adverse reactions METYRAPONE Metyrapone Acti ve [facility] Propensity to adverse reactions MEPERIDINE Meperidine Acti ve [facility] Propensity to adverse reactions IMIPENEM-CILASTATIN Imipenem-Cilast atin Active [facility] Propensity to adverse reactions HEPARIN (PORCINE) Heparin (Porcine) Active [facility] Propensity to adverse reactions CHLORCYCLIZINE chlorcyclizine Active [facility] Propensity to adverse reactions KARMEN Karmen sinensis root extract Active [facility] Family History Family Member Name Family Member Gender Family Member Status Date o f Status Description Data Source(s) Unknown Male Problem MED[facility] ([facility]) () Unknown Female Problem [facility] ([facility]) Unknown Female Problem [facility] ([facility]) Encounters Encounter Providers Location Date Indications Data Source(s ) Unknown [facility] [address] 09/23/2021 12:00:00 AM EST [facility] ([facility] [place] [address] [facility] [address] 09/22/2021 12:00:00 AM EST [facility] [place] [address] [facility] [address] 09/16/2021 12:00:00 AM EST [facility]CW1 [facility] [place] [address] [place] [address] 09/12/2021 12:00:00 AM EST eCW1 [facility] Unknown [address] [facility] [place] [address] 09/08/2021 12:00:00 AM EST eCW1 ([facility]) [place] [address] [place] [address] 09/08/2021 12:00:00 AM EST eCW1 ([facility]) Unknown [address] [facility] [place] [address] 09/04/2021 12:00:00 AM EST eCW1 ([facility]) Outpatient Attender: Dacia Grace MD Physical Therapy 09/02 02:15:00 PM EST [facility] ([facility]) Outpatient Attender: Chris Valles MD Main office - [place] 08/26/2021 01:45:00 PM EDT [facility] ([facility]) Unknown [address] [facility] [place] [address] 08/21/2021 12:00:00 AM EDT eCW1 ([facility]) Outpatient Attender: RAVEN Fraser/Abbe/Cabrera/Samy dl 08/07/2021 10:30:00 AM EDT [facility] ([facility] Unknown [address] [facility] [place] [address] 07/22/2021 12:00:00 AM EDT eCW1 ([facility]) Unknown [address] [facility] [place] [address] 07/21/2021 12:00:00 AM EDT eCW1 ([facility]) Office Visit Attender: IMTIAZ DE OLIVEIRA Physical Therapy 07/15/2021 03:45:00 PM EDT [facility] ([facility]) [place] [address] [facility] [address] 06/19/2021 12:00:00 AM EDT eCW1 ([facility]) Outpatient Attender: Dacia Grace MD Physical Therapy 06/10 10:00:00 AM EDT [facility] ([facility]) [place] [address] [facility] [address] 05/21/2021 12:00:00 AM EDT eCW1 ([facility]) [place] [address] [facility] [address] 05/20/2021 12:00:00 AM EDT eCW1 ([facility]) Outpatient Attender: AUDREY ANN MD [email or web address] 12:00:00 AM EDT - 05/09/2021 09:09:[address] [facility] [address] [facility] [place] [address] 04/22/2021 12:00:00 AM EDT eCW1 ([facility]) OFFICE OUTPATIENT VISIT 15 MINUTES Attender: IMTIAZ DE OLIVEIRA Physical Therapy 04/17/2021 04:15:00 PM EDT [facility] ([facility]) [place] [address] [facility] [address] 04/16/2021 12:00:00 AM EDT eCW1 ([facility]) [place] [address] [facility] [address] 04/15/2021 12:00:00 AM EDT eCW1 ([facility]) Outpatient [address] [facility] [place] [address] 04/08/2021 12:00:00 AM EDT eCW1 ([facility]) [place] [address] [facility] [address] 03/25/2021 12:00:00 AM EDT eCW1 ([facility]) Outpatient Attender: Dacia Grace MD Physical Therapy 02/25 10:30:00 AM EDT [facility] ([facility]) [place] [address] [facility] [address] 02/24/2021 12:00:00 AM EDT eCW1 ([facility]) [place] [address] [facility] [address] 02/06/2021 12:00:00 AM EDT eCW1 ([facility]) Unknown [address] [facility] [address] 01/22/2021 12:00:00 AM EDT eCW1 ([facility]) Outpatient Attender: Chris Valles MD Main office - [place] 01/14/2021 11:30:00 AM EDT MEDENT ([facility]) Outpatient [address] [facility] [address] 01/09/2021 12:00:00 AM EDT eCW1 ([facility]) Unknown [address] [facility] [place] [address] 01/08/2021 12:00:00 AM EDT eCW1 ([facility]) Outpatient Attender: AUDREY ANN MD SJP.[email or web address].MONSE 12:00:00 AM EST - 01/03/2021 09:01:53 AM EST [facility] Unknown [address] [facility] [address] 01/01/2021 12:00:00 AM EST eCW1 ([facility]) OFFICE OUTPATIENT VISIT 15 MINUTES Attender: Ashley MILLS PA-C Physical Therapy 12/31/2020 08:15:00 AM EST MEDENT ([facility]) Unknown [address] [facility] [place] [address] 12/31/2020 12:00:00 AM EST eCW1 ([facility]) [place] [address] [facility] [address] 12/20/2020 12:00:00 AM EST eCW1 ([facility]) [place] [address] [facility] [address] 12/20/2020 12:00:00 AM EST eCW1 ([facility]) [place] [address] [facility] [address] 12/13/2020 12:00:00 AM EST eCW1 ([facility]) Outpatient Attender: Ashley MILLS PA-C Physical Therapy 12/03/2020 12:00:00 PM EST MEDENT ([facility]) [place] [address] [facility] [address] 11/27/2020 12:00:00 AM EST eCW1 ([facility]) Unknown [address] [facility] [place] [address] 11/26/2020 12:00:00 AM EST eCW1 ([facility]) Unknown [address] [facility] [place] [address] 11/25/2020 12:00:00 AM EST eCW1 ([facility]) Unknown [address] [facility] [place] [address] 11/25/2020 12:00:00 AM EST eCW1 ([facility]) Unknown [address] [facility] [place] [address] 11/13/2020 12:00:00 AM EST eCW1 ([facility]) Unknown [address] [place] [address] 11/08/2020 12:00:00 AM EST eCW1 ([facility]) Outpatient Attender: Dacia Grace MD Physical Therapy 10/29 10:45:00 AM EST MEDENT ([facility]) Unknown [address] [place] [address] 10/24/2020 12:00:00 AM EST eCW1 ([facility]) Outpatient Attender: AUDREY ANN MD SJP.[email or web address]-[email or web address].MONSE 0 12:00:00 AM EST - 10/16/2020 11:10:03 AM EST [facility] Outpatient<td ID="encounterTypeDescripti onID0">1 WK PREOP FOR SURGERY</td><td>Darrell Lim DO</td><td>Raven Poe MD [facility]</td><td>10/10/2020</td><td>9:38AM</td><td>11:11AM</td><td><content ID="encounterDiagnosisID0-0">Cataract Senile Nuclear</content>, <content ID="encounterDiagnosisID0-1">Pseudophakia</content></td> Attender: DARRELL Sharif MD [facility] 10/10/2020 09:38:00 AM EST - 10/10/2020 11:11:00 AM EST PseudophakiaCataract Senile Nuclear [place] (Raven Hutchison MD [facility]) Pseudophakia Cataract Senile Nuclear Outpatient Attender: AUDREY ANN MD SJP.MONSE-SJP.[facility] 0 12:00:00 AM EST - 09/27/2020 09:22:52 AM EST [facility] Unknown [address] [facility] [place] [address] 09/23/2020 12:00:00 AM EST eCW1 ([facility]) Outpatient<td ID="encounterTypeDescripti onID1">POST OP VISIT WITH PRE- OP</td><td>Darrell Lim DO</td><td>Raven Poe MD [facility]</td><td>09/12/2020</td><td>1:00PM</td><td>2:01PM</td><td><content ID="encounterDiagnosisID1-0">Pseudophakia</content>, <content ID="encounterDiagnosisID1-1">Cataract Senile Nuclear</content></td> Attender: DARRELL Sharif MD [facility] 09/12/2020 01:00:00 PM EST - 09/12/2020 02:01:00 PM EST PseudophakiaPseudophakiaPseudophakiaPseudophakiaPseudophakiaPseudophakiaPseudoph akiaPseudophakiaCataract Senile NuclearCataract Senile NuclearCataract Senile NuclearCataract Senile NuclearCataract Senile NuclearCataract Senile Nuclear Cataract Senile NuclearCataract Senile Nuclear TY (Raven Hutchison MD [facility]) Pseudophakia Pseudophakia Pseudophakia Pseudophakia Pseudophakia Pseudophakia Pseudophakia Pseudophakia Cataract Senile Nuclear Cataract Senile Nuclear Cataract Senile Nuclear Cataract Senile Nuclear Cataract Senile Nuclear Cataract Senile Nuclear Cataract Senile Nuclear Cataract Senile Nuclear Unknown [address] [facility], [facility] [address] 09/10/2020 12:00:00 AM EST eCW1 ([facility]) Outpatient<td ID="encounterTypeDescripti onID2">SAME DAY POST OP</td><td>Darrell Lim DO</td><td>[facility]</td><td>09/05/2020</td><td>7:33AM</td><td>7:33AM</td><td></td> Attender: DARRELL LIM DO [facility] 09/05/2020 07:33:00 AM EST - 09/05/2020 07:33:00 AM EST TY (Raven lowe MD [facility]) <td ID="encounterTypeDescriptionID3">Ext racapsular cataract removal w/IOL implant</td><td>Darrell Lim DO</td><td>[facility]</td><td>09/05/2020</td><td>7:04AM</td><td>7:04AM</td><td></td>Outpatient Attender: DARRELL LIM DO [facility] 09/05/2020 07:04:00 AM EST - 09/05/2020 07:04:00 AM EST TY (Raven Hutchison MD [facility]) Emergency Attender: Scott DE OLIVEIRA-CConsultant: Shan wagner DO 08/27/2020 04:44:00 PM EST - 08/27/2020 08:57:00 PM EST [facility] Patient discharged. Outpatient Attender: Dacia Grace MD Physical Therapy 08/27 10:30:00 AM EST [facility] ([facility]) [place] [address] [facility] [address] 08/23/2020 12:00:00 AM EDT eCW1 ([facility]) Unknown [address] [facility] [address] 08/22/2020 12:00:00 AM EDT eCW1 ([facility]) [place] [address] [facility] [address] 08/22/2020 12:00:00 AM EDT eCW1 ([facility]) Outpatient Attender: AUDREY ANN MD SJ.[email or web address] 0 12:00:00 AM EDT - 08/21/2020 10:10:17 AM EDT [facility] Outpatient<td ID="encounterTypeDescripti onID4">1 WK PREOP FOR SURGERY</td><td>Darrell Lim DO</td><td>Raven Poe MD [facility]</td><td>08/20/2020</td><td>9:47AM</td><td>10:48AM</td><td><content ID="encounterDiagnosisID4-0">Cataract Senile Nuclear</content></td> Attender: DARRELL Sharif MD [facility] 08/20/2020 09:47:00 AM EDT - 08/20/2020 10:48:00 AM EDT Cataract Senile NuclearCataract Senile NuclearCataract Senile NuclearCataract Senile NuclearCataract Senile NuclearCataract Senile NuclearCataract Senile NuclearCataract Senile Nuclear TY (Raven Huthcison MD [facility]) Cataract Senile Nuclear Cataract Senile Nuclear Cataract Senile Nuclear Cataract Senile Nuclear Cataract Senile Nuclear Cataract Senile Nuclear Cataract Senile Nuclear Cataract Senile Nuclear Unknown [address] [facility] [address] 08/19/2020 12:00:00 AM EDT eCW1 ([facility]) Outpatient Attender: Chris Valles MD Main office [facility] 08/15/2020 12:45:00 PM EDT MEDENT ([facility]) Outpatient [address] [facility] [address] 08/13/2020 12:00:00 AM EDT eCW1 ([facility]) Outpatient Referrer: AUDREY MURPHY.[email or web address].MONSE 08/08/2020 12:00:00 AM EDT [facility] Unknown [address] [facility] [place] [address] 08/05/2020 12:00:00 AM EDT eCW1 ([facility]) Unknown [address] [facility] [place] [address] 07/29/2020 12:00:00 AM EDT eCW1 ([facility]) Outpatient Attender: AUDREY ANN MDConsultant: AUDREY Mohan JP.MONSE-SJPCtMONSE 04/12/2020 01:22:39 PM EDT - 04/12/2020 02:33:57 PM EDT [facility] Immunizations Vaccine Date Status Description Data Source(s) COVID-19 VACCINE Pfizer 09/15/2021 12:00:00 AM EST completed [facility] Vaccine Series Complete: YESThis Data wa s Submitted to [facility] Via [employer]. COVID-19 VACC, MRNA(PFIZER)/PF 09/15/2021 12:00:00 AM EST completed [facility] COVID-19 VACCINE Pfizer 02/21/2021 12:00:00 AM EDT completed [facility] Vaccine Series Complete: NOThis Data was Submitted to [facility] Via [employer]. Medications Medication Brand Name Start Date Product Form Dose Route Admi nistrative Instructions Pharmacy Instructions Status Indications Reaction Description Data Source[facility]#[id number] (60mg Syringe)1MG 09/02/2021 12:00:00 AM EST completed MEDENT ([facility]) Medication administered onsite Acetaminophen 325 MG / Hydrocodone Tiffanie trate 5 MG Oral Tablet HYDROcodone- Acetaminophen 5-325 MG HYDROcodone-Acetaminophen 5-325 MG 08/21/2021 12:00:00 AM EDT 1.0 {tablet_as_needed} active HYDROcodone-Acetaminophen 5-325 MG eCW1 ([facility]) Acetaminophen 325 MG / Hydrocodone Tiffanie trate 5 MG Oral Tablet HYDROcodone- Acetaminophen 5-325 MG HYDROcodone-Acetaminophen 5-325 MG 08/21/2021 12:00:00 AM EDT 1.0 {tablet_as_needed} active HYDROcodone-Acetaminophen 5-325 MG eCW1 ([facility]) Acetaminophen 325 MG / Hydrocodone Tiffanie trate 5 MG Oral Tablet HYDROcodone- Acetaminophen 5-325 MG HYDROcodone-Acetaminophen 5-325 MG 08/21/2021 12:00:00 AM EDT 1.0 {tablet_as_needed} active HYDROcodone-Acetaminophen 5-325 MG eCW1 ([facility]) Acetaminophen 325 MG / Hydrocodone Tiffanie trate 5 MG Oral Tablet HYDROcodone- Acetaminophen 5-325 MG HYDROcodone-Acetaminophen 5-325 MG 08/21/2021 12:00:00 AM EDT 1.0 {tablet_as_needed} active HYDROcodone-Acetaminophen 5-325 MG eCW1 ([facility]) Acetaminophen 325 MG / Hydrocodone Tiffanie trate 5 MG Oral Tablet HYDROcodone- Acetaminophen 5-325 MG HYDROcodone-Acetaminophen 5-325 MG 08/21/2021 12:00:00 AM EDT 1.0 {tablet_as_needed} active HYDROcodone-Acetaminophen 5-325 MG eCW1 ([facility]) Acetaminophen 325 MG / Hydrocodone Tiffanie trate 5 MG Oral Tablet HYDROcodone- Acetaminophen 5-325 MG HYDROcodone-Acetaminophen 5-325 MG 08/21/2021 12:00:00 AM EDT 1.0 {tablet_as_needed} active HYDROcodone-Acetaminophen 5-325 MG eCW1 ([facility]) Acetaminophen 325 MG / Hydrocodone Tiffanie trate 5 MG Oral Tablet HYDROcodone- Acetaminophen 5-325 MG HYDROcodone-Acetaminophen 5-325 MG 08/21/2021 12:00:00 AM EDT 1.0 {tablet_as_needed} active HYDROcodone-Acetaminophen 5-325 MG eCW1 ([facility]) Acetaminophen 325 MG / Hydrocodone Tiffanie trate 5 MG Oral Tablet HYDROcodone- Acetaminophen 5-325 MG HYDROcodone-Acetaminophen 5-325 MG 08/21/2021 12:00:00 AM EDT 1.0 {tablet_as_needed} active HYDROcodone-Acetaminophen 5-325 MG eCW1 ([facility]) Sodium Phosphate, Dibasic 35.5 MG/ML / S odium Phosphate, Monobasic 96.4 MG/ML Enema Fleet Enema 08/07/2021 12:00:00 AM EDT activ e MEDENT ([facility]) Acetaminophen 325 MG / Hydrocodone Tiffanie trate 5 MG Oral Tablet HYDROcodone- Acetaminophen 5-325 MG HYDROcodone-Acetaminophen 5-325 MG 07/22/2021 12:00:00 AM EDT 1.0 {tablet_as_needed} active HYDROcodone-Acetaminophen 5-325 MG eCW1 ([facility]) Acetaminophen 325 MG / Hydrocodone Tiffanie trate 5 MG Oral Tablet HYDROcodone- Acetaminophen 5-325 MG HYDROcodone-Acetaminophen 5-325 MG 07/22/2021 12:00:00 AM EDT 1.0 {tablet_as_needed} active HYDROcodone-Acetaminophen 5-325 MG eCW1 ([facility]) Acetaminophen 325 MG / Hydrocodone Tiffanie trate 5 MG Oral Tablet HYDROcodone- Acetaminophen 5-325 MG HYDROcodone-Acetaminophen 5-325 MG 06/19/2021 12:00:00 AM EDT 1.0 {tablet_as_needed} active HYDROcodone-Acetaminophen 5-325 MG eCW1 ([facility]) BD Pen Needle/Mini/Ultra-Fine/31G X 5mm 05/26/2021 12:00:00 AM E DT active MEDENT ([facility]) Warfarin Sodium 10 MG Oral Tablet warfarin (COUMADIN) 10 MG tablet warfarin (COUMADIN) 10 MG tablet 05/08/2021 12:00:00 AM EDT 10 mg Oral active Take 10 mg by mouth daily As directed [facility] Acetaminophen 325 MG / Hydrocodone Tiffanie trate 5 MG Oral Tablet HYDROcodone- Acetaminophen 5-325 MG HYDROcodone-Acetaminophen 5-325 MG 04/17/2021 12:00:00 AM EDT 1.0 {tablet_as_needed} active HYDROcodone-Acetaminophen 5-325 MG eCW1 ([facility]) Acetaminophen 325 MG / Hydrocodone Tiffanie trate 5 MG Oral Tablet HYDROcodone- Acetaminophen 5-325 MG HYDROcodone-Acetaminophen 5-325 MG 04/17/2021 12:00:00 AM EDT 1.0 {tablet_as_needed} active HYDROcodone-Acetaminophen 5-325 MG eCW1 ([facility]) Acetaminophen 325 MG / Hydrocodone Tiffanie trate 5 MG Oral Tablet HYDROcodone- Acetaminophen 5-325 MG HYDROcodone-Acetaminophen 5-325 MG 04/17/2021 12:00:00 AM EDT 1.0 {tablet_as_needed} active HYDROcodone-Acetaminophen 5-325 MG eCW1 ([facility]) Acetaminophen 325 MG / Hydrocodone Tiffanie trate 5 MG Oral Tablet HYDROcodone- Acetaminophen 5-325 MG HYDROcodone-Acetaminophen 5-325 MG 04/17/2021 12:00:00 AM EDT 1.0 {tablet_as_needed} active HYDROcodone-Acetaminophen 5-325 MG eCW1 ([facility]) Acetaminophen 325 MG / Hydrocodone Tiffanie trate 5 MG Oral Tablet HYDROcodone- Acetaminophen 5-325 MG HYDROcodone-Acetaminophen 5-325 MG 04/17/2021 12:00:00 AM EDT 1.0 {tablet_as_needed} active HYDROcodone-Acetaminophen 5-325 MG eCW1 ([facility]) Acetaminophen 325 MG / Hydrocodone Tiffanie trate 5 MG Oral Tablet HYDROcodone- Acetaminophen 5-325 MG HYDROcodone-Acetaminophen 5-325 MG 04/17/2021 12:00:00 AM EDT 1.0 {tablet_as_needed} active HYDROcodone-Acetaminophen 5-325 MG eCW1 ([facility]) Acetaminophen 325 MG / Hydrocodone Tiffanie trate 5 MG Oral Tablet Hydrocodone- Acetaminophen 5-325 MG Hydrocodone-Acetaminophen 5-325 MG 03/25/2021 12:00:00 AM EDT 1.0 {tablet_as_needed} active Hydrocodone-Acetaminophen 5-325 MG eCW1 ([facility]) Acetaminophen 325 MG / Hydrocodone Tiffanie trate 5 MG Oral Tablet Hydrocodone- Acetaminophen 5-325 MG Hydrocodone-Acetaminophen 5-325 MG 02/25/2021 12:00:00 AM EDT 1.0 {tablet_as_needed} active Hydrocodone-Acetaminophen 5-325 MG eCW1 ([facility]) Pat [facility]#[id number] (60mg Syringe)1MG 02/25/2021 12:00:00 AM EDT completed MEDENT ([facility]) Medication administered onsite Acetaminophen 325 MG / Hydrocodone Tiffanie trate 5 MG Oral Tablet Hydrocodone- Acetaminophen 5-325 MG Hydrocodone-Acetaminophen 5-325 MG 01/23/2021 12:00:00 AM EDT 1.0 {tablet_as_needed} active Hydrocodone-Acetaminophen 5-325 MG eCW1 ([facility]) Acetaminophen 325 MG / Hydrocodone Tiffanie trate 5 MG Oral Tablet Hydrocodone- Acetaminophen 5-325 MG Hydrocodone-Acetaminophen 5-325 MG 01/23/2021 12:00:00 AM EDT 1.0 {tablet_as_needed} active Hydrocodone-Acetaminophen 5-325 MG eCW1 ([facility]) Nitroglycerin 0.4 MG Sublingual Tablet n itroglycerin (NITROSTAT) 0.4 MG SL tablet nitroglycerin (NITROSTAT) 0.4 MG SL tablet 01/20/2021 12:00:00 A M EDT 0.4 mg Sublingual active Benign essentia l hypertensionHyperlipidemia, unspecified hyperlipidemia typeCoronary artery disease due to calcified coronary lesionCardiomyopathy Place 1 tablet (0.4 mg total ) under the tongue every 5 (five) minutes as needed for chest pain [facility] Benign essential hypertension Hyperlipidemia, unspecified hyperlipidem ia type Coronary artery disease due to calcified coronary lesion Cardiomyopathy Nitroglycerin 0.4 MG Sublingual Tablet n itroglycerin (NITROSTAT) 0.4 MG SL tablet nitroglycerin (NITROSTAT) 0.4 MG SL tablet 01/03/2021 12:00:00 A M EST 0.4 mg Sublingual active Benign essentia l hypertensionHyperlipidemia, unspecified hyperlipidemia typeCoronary artery disease due to calcified coronary lesionCardiomyopathy Place 1 tablet (0.4 mg total ) under the tongue every 5 (five) minutes as needed for chest pain [facility] Benign essential hypertension Hyperlipidemia, unspecified hyperlipidem ia type Coronary artery disease due to calcified coronary lesion Cardiomyopathy Trazodone Hydrochloride 100 MG Oral Tablet traZODone ( DESYREL) 100 MG tablet traZODone (DESYREL) 100 MG tablet 01/02/2021 12:00:00 AM EST 1 {tbl} Oral active Take 1 tablet by mouth nightly [facility] fluticasone (FLONASE) 50 MCG/ACT nasal spray [id number] 12/31/2020 12:00:00 AM EST active SHAKE LIQUID AND USE 2 SPRAYS IN EACH NOSTRIL DAILY [facility] cefdinir 300 MG Oral Capsule cefdinir (OMNICEF) 300 MG capsule cefdinir (OMNICEF) 300 MG capsule 12/31/2020 12:00:00 AM EST 300 mg Oral aborted Take 300 mg by mouth 2 (two) times a day [facility] Acetaminophen 325 MG / Hydrocodone Tiffanie trate 5 MG Oral Tablet Hydrocodone- Acetaminophen 5-325 MG Hydrocodone-Acetaminophen 5-325 MG 12/26/2020 12:00:00 AM EST 1.0 {tablet_as_needed} active Hydrocodone-Acetaminophen 5-325 MG eCW1 ([facility]) Acetaminophen 325 MG / Hydrocodone Tiffanie trate 5 MG Oral Tablet Hydrocodone- Acetaminophen 5-325 MG Hydrocodone-Acetaminophen 5-325 MG 12/26/2020 12:00:00 AM EST 1.0 {tablet_as_needed} active Hydrocodone-Acetaminophen 5-325 MG eCW1 ([facility]) Acetaminophen 325 MG / Hydrocodone Tiffanie trate 5 MG Oral Tablet Hydrocodone- Acetaminophen 5-325 MG Hydrocodone-Acetaminophen 5-325 MG 12/26/2020 12:00:00 AM EST 1.0 {tablet_as_needed} active Hydrocodone-Acetaminophen 5-325 MG eCW1 ([facility]) Acetaminophen 325 MG / Hydrocodone Tiffanie trate 5 MG Oral Tablet Hydrocodone- Acetaminophen 5-325 MG Hydrocodone-Acetaminophen 5-325 MG 12/26/2020 12:00:00 AM EST 1.0 {tablet_as_needed} active Hydrocodone-Acetaminophen 5-325 MG eCW1 ([facility]) Acetaminophen 325 MG / Hydrocodone Tiffanie trate 5 MG Oral Tablet Hydrocodone- Acetaminophen 5-325 MG Hydrocodone-Acetaminophen 5-325 MG 12/26/2020 12:00:00 AM EST 1.0 {tablet_as_needed} active Hydrocodone-Acetaminophen 5-325 MG eCW1 ([facility]) Acetaminophen 325 MG / Hydrocodone Tiffanie trate 5 MG Oral Tablet Hydrocodone- Acetaminophen 5-325 MG Hydrocodone-Acetaminophen 5-325 MG 12/26/2020 12:00:00 AM EST 1.0 {tablet_as_needed} active Hydrocodone-Acetaminophen 5-325 MG eCW1 ([facility]) B-D UF III MINI PEN NEEDLES 31G X 5 MM [id number] 12/25/2020 12:00:00 AM EST active USE DIRECTED F OUR TIMES DAILY [facility] albuterol (PROVENTIL HFA;VENTOLIN HFA) 108 (90 Base) M CG/ACT inhaler [id number] 12/20/2020 12:00:00 AM EST 2 {puff} Inhalation active Inhale 2 puffs as needed [facility] Ondansetron 4 MG Disintegrating Oral Tab let ondansetron (ZOFRAN-ODT) 4 MG disintegrating tablet ondansetron (ZOFRAN-ODT) 4 MG disintegrating tablet 12/05/2020 12:00:00 AM EST aborted DISSOLVE 1 TABLET ON THE TONGUE THREE TIMES DAILY AND ALLOW TO DISSOLVE NEEDED FOR NAUSEA [facility] Methylprednisolone 4 MG Oral Tablet [Medrol] Medrol 06/2021 12:00:00 AM EST active MEDENT ( [facility]) Acetaminophen 325 MG / Hydrocodone Tiffanie trate 5 MG Oral Tablet Hydrocodone- Acetaminophen 5-325 MG Hydrocodone-Acetaminophen 5-325 MG 11/27/2020 12:00:00 AM EST 1.0 {tablet_as_needed} active Hydrocodone-Acetaminophen 5-325 MG eCW1 ([facility]) Acetaminophen 325 MG / Hydrocodone Tiffanie trate 5 MG Oral Tablet Hydrocodone- Acetaminophen 5-325 MG Hydrocodone-Acetaminophen 5-325 MG 11/27/2020 12:00:00 AM EST 1.0 {tablet_as_needed} active Hydrocodone-Acetaminophen 5-325 MG eCW1 ([facility]) Acetaminophen 325 MG / Hydrocodone Tiffanie trate 5 MG Oral Tablet Hydrocodone- Acetaminophen 5-325 MG Hydrocodone-Acetaminophen 5-325 MG 11/27/2020 12:00:00 AM EST 1.0 {tablet_as_needed} active Hydrocodone-Acetaminophen 5-325 MG eCW1 ([facility]) Acetaminophen 325 MG / Hydrocodone Tiffanie trate 5 MG Oral Tablet [[place]] [place] 5- 325 MG [place] 5-325 MG 11/26/2020 12:00:00 AM EST 1.0 {tablet_as_needed} active [place] 5-325 MG eCW1 ([facility]) Acetaminophen 325 MG / Hydrocodone Tiffanie trate 5 MG Oral Tablet [[place]] [place] 5- 325 MG [place] 5-325 MG 11/26/2020 12:00:00 AM EST 1.0 {tablet_as_needed} active [place] 5-325 MG eCW1 ([facility]) Warfarin Sodium 1 MG Oral Tablet warfarin (COUMADIN) 1 MG tablet warfarin (COUMADIN) 1 MG tablet 11/02/2020 12:00:00 AM EST 10 mg Oral aborted Take 10 mg by mouth daily [facility] Acetaminophen 325 MG / Hydrocodone Tiffanie trate 5 MG Oral Tablet [[place]] [place] 5- 325 MG [place] 5-325 MG 10/24/2020 12:00:00 AM EST 1.0 {tablet_as_needed} active [place] 5-325 MG eCW1 ([facility]) Acetaminophen 325 MG / Hydrocodone Tiffanie trate 5 MG Oral Tablet [[place]] [place] 5- 325 MG [place] 5-325 MG 10/24/2020 12:00:00 AM EST 1.0 {tablet_as_needed} active [place] 5-325 MG eCW1 ([facility]) Acetaminophen 325 MG / Hydrocodone Tiffanie trate 5 MG Oral Tablet [[place]] [place] 5- 325 MG [place] 5-325 MG 10/24/2020 12:00:00 AM EST 1.0 {tablet_as_needed} active [place] 5-325 MG eCW1 ([facility]) Pramipexole dihydrochloride 0.5 MG Oral Tablet pramipexole (MIRAPEX) 0.5 MG tablet pramipexole (MIRAPEX) 0.5 MG tablet 10/23/2020 12:00:00 AM EST 0.5 mg Oral active Take 0.5 mg by mouth 3 (three) times a day [facility] pantoprazole 40 MG Delayed Release Oral Tablet pantoprazole (PROTONIX) 40 MG tablet pantoprazole (PROTONIX) 40 MG tablet 10/07/2020 12:00:00 AM EST 40 mg Oral active Take 40 mg by mouth 2 (two) times a day [facility] sacubitril 24 MG / valsartan 26 MG Oral Tablet sacubitril-valsartan (ENTRESTO) 24-26 MG TABS sacubitril-valsartan (ENTRESTO) 24-26 MG TABS 09/29/20 12:00:00 AM EST 1 {tbl} Oral active Take 1 tablet by mouth daily [facility] Lidocaine 25 MG/ML / Prilocaine 25 MG/ML Topical Cream lidocaine-prilocaine (EMLA) cream lidocaine-prilocaine (EMLA) cream 09/25/2020 12:00:00 AM EST active APPLY SMALL PIY[place] UNT TO ACCESS SITE (AVF) 30 MINUTES BEFORE DIALYSIS. COVER WITH OCCLUSIVE DRESSING (SARAN WRAP) [facility] Acetaminophen 325 MG / Hydrocodone Tiffanie trate 5 MG Oral Tablet [[place]] [place] 5- 325 MG [place] 5-325 MG 09/23/2020 12:00:00 AM EST 1.0 {tablet_as_needed} active [place] 5-325 MG eCW1 ([facility]) valsartan 40 MG Oral Tablet valsartan (DIOVAN) 40 MG t ablet valsartan (DIOVAN) 40 MG tablet 09/18/2020 12:00:00 AM EST abort ed TAKE 1 TABLET(40 MG) BY MOUTH DAILY [facility] Ondansetron 4 MG Disintegrating Oral Tab let ondansetron (ZOFRAN-ODT) 4 MG disintegrating tablet ondansetron (ZOFRAN-ODT) 4 MG disintegrating tablet 09/08/2020 12:00:00 AM EST aborted DIS 1 T ON THE TONGUE TID PRF NAUSEA [facility] moxifloxacin 5 MG/ML Ophthalmic Solution moxifloxacin (VIGAMOX) 0.5 % ophthalmic solution moxifloxacin (VIGAMOX) 0.5 % ophthalmic solution 09/08 12:00:00 AM EST aborted INSTILL 1 GTT INTO RIGHT EYE QID START THREE DAYS PRIOR TO SURGERY. [facility] Prolia [facility]#[id number] (60mg Syringe)1MG 08/27/2020 12:00:00 AM EST completed [facility] ([facility]) Medication administered onsite Acetaminophen 325 MG / Hydrocodone Tiffanie trate 5 MG Oral Tablet [[place]] [place] 5- 325 MG [place] 5-325 MG 08/23/2020 12:00:00 AM EDT 1.0 {tablet_as_needed} active [place] 5-325 MG eCW1 ([facility]) Acetaminophen 325 MG / Hydrocodone Tiffanie trate 5 MG Oral Tablet [[place]] [place] 5- 325 MG [place] 5-325 MG 08/23/2020 12:00:00 AM EDT 1.0 {tablet_as_needed} active [place] 5-325 MG eCW1 ([facility]) Acetaminophen 325 MG / Hydrocodone Tiffanie trate 5 MG Oral Tablet [[place]] [place] 5- 325 MG [place] 5-325 MG 08/23/2020 12:00:00 AM EDT 1.0 {tablet_as_needed} active [place] 5-325 MG eCW1 ([facility]) Acetaminophen 325 MG / Hydrocodone Tiff[place] trate 5 MG Oral Tablet [[place]] [place] 5- 325 MG [place] 5-325 MG 08/23/2020 12:00:00 AM EDT 1.0 {tablet_as_needed} active [place] 5-325 MG eCW1 ([facility]) Acetaminophen 325 MG / Hydrocodone Tiffanie trate 5 MG Oral Tablet [[place]] [place] 5- 325 MG [place] 5-325 MG 08/23/2020 12:00:00 AM EDT 1.0 {tablet_as_needed} active [place] 5-325 MG eCW1 ([facility]) Aspirin 81 MG Delayed Release Oral Tablet aspirin EC 8 1 MG EC tablet aspirin EC 81 MG EC tablet 08/21/2020 12:00:00 AM EDT 81 mg Oral ac tive Take 1 tablet (81 mg total) by mouth daily [place] [facility] In[facility] Ophthalmic Suspension Inveltys 1% Ophthalmic Patsy pension 08/20/2020 12:00:00 AM EDT aborted loteprednol etabonate 10 MG/ML Ophthalmic Suspension [Inveltys] TY (Raven Hutchison MD [facility]) moxifloxacin 5 MG/ML Ophthalmic Solution Moxifloxacin HCl 0.5% Ophthalmic Solution Moxifloxacin HCl 0.5% Ophthalmic Solution 08/20/2020 12:00:00 AM EDT active moxifloxacin 5 MG/ML Oph thalmic Solution TY (Raven Hutchison MD [facility]) BromSite 0.075% Ophthalmic Solution BromSite 0.075% Ophthalm ic Solution 08/20/2020 12:00:00 AM EDT aborted bromfenac 0.75 MG/ML Ophthalmic Solution [Bromsite] TY (Raven Hutchison MD [facility]) Ketorolac Tromethamine 4 MG/ML Ophthalmi c Solution Ketorolac Tromethamine 0.4% Ophthalmic Solution Ketorolac Tromethamine 0.4% Ophthalmic Solution 2019 12:00:00 AM EDT active ketorolac tromethamine 4 MG/ML Ophthalmic Solution TY (Raven Hutchison MD [facility]) prednisolone acetate 10 MG/ML Ophthalmic Suspension [Pred Forte] Pred Forte 1% Ophthalmic Suspension Pred Forte 1% Ophthalmic Suspension 08/20/2020 12:00:0 0 AM EDT active predniso lone acetate 10 MG/ML Ophthalmic Suspension [Pred Forte] TY (Raven Hutchison MD [facility]) Donepezil hydrochloride 10 MG Oral Tablet donepezil (A RICEPT) 10 MG tablet donepezil (ARICEPT) 10 MG tablet 08/15/2020 12:00:00 AM EDT 10 mg Oral active Take 10 mg by mouth nightly [facility] Nitroglycerin 0.4 MG Sublingual Tablet n itroglycerin (NITROSTAT) 0.4 MG SL tablet nitroglycerin (NITROSTAT) 0.4 MG SL tablet 06/09/2019 12:00:00 A M EDT 0.[address] 1 t ablet (0.4 mg total) under the tongue every 5 (five) minutes as needed for chest pain [facility] Fluticasone Furoate (ARNUITY ELLIPTA) 50 MCG/ACT AEPB [id number] 02/06/2019 12:00:00 AM EDT 1 {puff} Inhalation aborted Inhale 1 p uff [facility] Isosorbide Dinitrate 30 MG Oral Tablet i sosorbide dinitrate (ISORDIL) 30 MG tablet isosorbide dinitrate (ISORDIL) 30 MG tablet 30 mg Oral aborted Take 30 mg by mouth 4 (four) times a day [facility] Fluticasone propionate 0.5 MG/ML Topical Cream fluticasone (CUTIVATE) 0.05 % cream fluticasone (CUTIVATE) 0.05 % cream ab orted FLUTICASONE PROPIONATE 0.05 % CREA [facility] Pramipexole dihydrochloride 0.125 MG Ora l Tablet pramipexole (MIRAPEX) 0.125 MG tablet pramipexole (MIRAPEX) 0.125 MG tablet 0.125 mg Oral aborted Take 0.125 mg by mouth 3 (three) times a day [facility] Warfarin Sodium 7.5 MG Oral Tablet warfarin (COUMADIN) 7.5 MG tablet warfarin (COUMADIN) 7.5 MG tablet 7.5 mg Oral aborted Take 7.5 mg by mouth daily [facility] Insurance Providers Payer name Policy type / Coverage type Policy ID Covered green party ID Covered green party's relationship to emerson Policy [place] Plan Information Medicaid [place] Medigap Part B [id number] 63379.0 Self [id number] Medicaid [place] Medigap Part B [id number] 988.0 Self [place] [id number] [id number]4200.0 Self 0 [id number] [place] Med[place]ap [place] [id number] 2.0.1.954502.3.227.99.991.93150.0 Self 0 [id number] [place] Med[place]ap Part [place] [id number] 2.0.1.255357.3.227.99.991.28747.0 Self 0 [id number] [place] Med[place]ap Part [place] [id number]72.0 Self 0 [id number] [place] Med[place]ap [place] [id number]95.0 Self 0 [id number] [place] Med[place]ap Part B .[id number] Self [employer]'s Options Medicare Commercial [id number] 20.1.110884.3.227.99.8646.8828.0 Self 0 [id number] [employer] Options Medicare Commercial [id number] 20.1.682935.3.227.99.8646.8828.0 Self 0 [id number] Today[employer] Options Medicare Commercial [id number] 20.1.842807.3.227.99.8646.8828.0 Self 0 [id number] Medicaid [place] Medigap Part B [id number] 988.0 Self Medicaid [place] B [id number] 20.1.764298.3.227.99.991. 19842.0 Self [id number] [employer] Medigap Part B [id number] 2.16.840.1.630919.3.227.99.991.09684.0 Self 0 [id number] [employer] Commercial [id number] Self [employer] Commercial [id number] 2.16.840.1.488011.3.227.99 .991.180860.0 Self [id number] [employer] Commercial [id number] Self [facility]) Workers Compensation [id number] 2.16.840.1.157380.3 .227.99.991.43665.0 Self [id number] [facility]) Workers Compensation [id number] 2.16.840.1.917891.3 .227.99.991.44574.0 Self [id number] [employer] OPTIONS [id number] SP [id number] [employer] Commercial 2.16.840.1.221272.3.227.99.991.109 88.0 Self [facility] Options Medigap Part B [id number] 2.840.1.706334.3.227.99.991.93696.0 Self 3 [id number] [facility] Options Medigap Part B [id number] 2.16840.1.094076.3.227.99.991.89186.0 Self 3 [id number] [employer] Commercial [id number] 2.16.840.1.839995.3.227.99.991.1 0988.0 Self [id number] [employer] Commercial [id number] 2.16.840.1.507685.3.227.99.991.1 0988.0 Self [id number] [facility] Options Medigap Part B [id number] 2.16.840.1.288773.3.227.99.991.33505.0 Self 3 [id number] [facility] Options Medigap Part B [id number] 2.16.840.1.827898.3.227.99.991.69622.0 Self 3 [id number] [employer] Commercial [id number] 2.16.840.1.109562.3.227.99.991.1 0988.0 Self [id number] [employer] Commercial [id number] 2.16.840.1.207791.3.227.99.991.1 0988.0 Self [id number] [facility] Options Medigap Part B [id number] 2.16.840.1.876028.3.227.99.991.46347.0 Self 3 [id number] [employer] Commercial [id number] 2.16.840.1.641154.3.227.99.991.1 0988.0 Self [id number] [employer] [id number] SP [id number] [employer]IONS [id number] SP [id number] [employer] [id number] SP [id number] [facility] MEDICARE [id number] xxxxxxxxx [id number] 1 [facility] MEDICARE [id number] Shayy [id number] MEDICAID [id number] Shayy [id number] MEDICAID [id number] xxxxxxxx [id number] MEDICARE COMPLETE [id number] SP [id number] ANSI-Medicare Part B [id number] ANSI-Health Maintenance Organization ( O) 9983np50-843c-0od1-rcmc-[id number] 9646as45-998o-7zk9-yfqx-co0368m6j3g7 ANSI-Medicare Part B [id number]-[id number] ANSI-Health Maintenance Organization ( O) bl2p2j9y-4ht2-8y05-b5h5-e10c86l92k53 ql8f3e4t-4vp2-9c63-z9k4-s15h10r05n41 ANSI-Medicare Part B [id number]-[id number] [id number]-[id number] ANSI-Health Maintenance Organization ( O) x5te1759-gw94-2hy8-yq48-dss79t9s00ah z8kn5940-gi62-6in6-kp53-dxk02i4u06dc ANSI-Medicare Part B [id number] [id number]-m9d3-[id number] ANSI-Medicare Part B [id number]e95 u0081i8p-e5f9-02k9-4u91-646i128h8q64 ANSI-Health Maintenance Organization ( O) 917e3ja9-5vq2-9n51-49o8-50hpb64c42ux 048b3wf6-6wg8-4p67-38p3-91glp09z41bc ANSI-Health Maintenance Organization ( O) 37z17zr4-40q8-2041-2gk6-1843xr115739 02p84br4-22v3-1543-8cu7-5625zt442312 ANSI-Medicare Part B [id number]-q537-9208-pqqf-3qz9li2o850a 04we4352-f643-7431-qstx-6pl6uo2m124b [facility] 8jd24kn6-5f03-52id-5f63-77i7f81qt037 9no05kx9-2f34-27nc-9i18-01n0d01sv059 ANSI-Medicare Part B 5xpc9y19-f501-105t-xj45-gw11994mp10x 9iwl6t25-w391-266m-cd12-zo84488zc16d [facility] [id number] SP [id number] ANSI-Medicare Part B 7q26in20-8798-6126-2sd4-[id number] 7o65th96-8608-8384-1zt4-u4915941j567 ANSI-Health Maintenance Organization ( O) 350o3819-y49q-53ft-3c11-3n693938s1wp 732d0495-f04o-32er-9t41-3f283300w8kb ANSI-Health Maintenance Organization ( O) 2ua8mo49-35jb-77k0-s2zc-s320ie8c8ew5 9wu9kt09-58qa-84g3-x4ki-x770ym7f1dl0 ANSI-Medicare Part B hb39vkv9-6tmv-8571-970t-162vs496zl1s wy19hnb9-2olv-9441-044j-473ug948mw7d ANSI-Medicare Part B [id number]-n74il6s3597b 42u34359-n751-3ra6-93n5-r83ah3j9720f ANSI-Health Maintenance Organization ( O) 2j1nm3da-ip5g-7281-h2jm-m3uk48o3ef11 5d6bk7mg-mu9j-1843-l8xq-n7oo04e1yj63 ANSI-Medicare Part B rxjp42op-o0j8-9ot1-976l-736vv3412fu1 rbbl05wy-u2o7-5yy2-123q-619bl4458ed6 ANSI-Health Maintenance Organization ( O) 7y9mi4s1-q305-0173-r4p5-29a600924w5l 7f8zp7e5-o889-8568-w8y0-05f187165v2y [employer] [id number] SP [id number] ANSI-Health Maintenance Organization ( O) z63z1706-f4m3-4i9t-18g9-zu4yzk6kr8mf g39p3642-u7n3-0d2e-45v7-bt1bpz8du7hh ANSI-Medicare Part B y0819b48-eex4-085o-3nkz-2i6x0466106v g2439g08-wtz6-218g-3nts-6h2t2431573r ANSI-Medicare Part B 8m842x43-7203-00u8-z571-db7254p9tk80 7i516g51-4731-51d7-l517-ef2134y0nz55 ANSI-Health Maintenance Organization ( O) 0tvgvv1b-c98w-2634-3scw-umtz0h1989x0 8xvvcy2n-s72y-3715-3vfn-usgt5v5842n4 ANSI-Medicare Part B [id number]-o4f7-06x7-9484-35nfb3bb35x5 b48815l0-x5v5-19n1-8282-78nhl3xb75i1 ANSI-Health Maintenance Organization ( O) 31281537-1x8w-45f1-d699-5m9s6wwf1254 54437533-4y2y-79c8-f962-9c0t2vaw1249 [employer] Medicare Commercial [id number] 2.16.840.1.498449.3.227.99.8646.8828.0 Self [id number] [facility]-Health Maintenance Organization ( O) oi0nc881-n039-7n95-o072-33640t575h24 yj5mi333-z708-9o94-w618-64494h837r06 ANSI-Medicare Part B 9xacvig5-1512-70t5-f0w4-8a4a2jt02c33 2lzsahh3-9181-72q8-u6i2-1i2q3ea16u82 [facility]-Health Maintenance Organization ( O) 4979137w-5xhg-4zvs-75r9-t28l08oxjy03 0068436l-8dwj-8ffh-93v9-y08w08njon68 ANSI-Medicare Part B [id number]-9qoef1i5k02q xu2f3779-92c0-01r1-707u-8jlux4y6z26c [facility]-Health Maintenance Organization ( O) 24g1o3bn-0ipa-67k3-x9z3-m05wlh7417gs 10z0z5ki-6xty-25o2-a8p2-b31puy7984ac ANSI-Medicare Part B m3wpg43p-i8jb-032z-x18x-o36i3l0vywsb j7jua33r-o1dz-368r-c62n-s64y4j0euzoj ANSI-Health Maintenance Organization ( O) l34u5523-28z3-9331-5611-hc101eh709m9 a91f9559-58a4-8998-7393-vk995md030y2 ANSI-Health Maintenance Organization ( O) pew6m5dl-a74k-3225-x90e-n0j372osy067 jzq4i0as-q67u-5889-i60z-n6w798xbs429 ANSI-Health Maintenance Organization ( O) 94855c2k-ms30-6555-y843-ipzp058z8733 27975i7d-qu29-9996-e831-cyxj997v5859 ANSI-Health Maintenance Organization ( O) 6f69a99n-5qmp-00r2-5c91-8323v40ace63 0u11h86d-2krh-65y3-4s14-9652j56paa35 ANSI-Health Maintenance Organization ( O) 389wtik5-rpmp-3pn9-x1jh-vk4kc798y749 658mcpw7-ppby-3rd0-m2zq-zw0mk978t036 ANSI-Health Maintenance Organization ( O) e5wy54e7-d5s3-65f7-g90r-d01i6r339433 u1zq54k5-z4o4-47l2-w02h-w22a8k466773 ANSI-Health Maintenance Organization ( O) 2ms7z3o3-lygo-1hf3-i638-0865131g70k5 5bm9g3s1-hntc-3zc6-y712-5254047y04y4 ANSI-Health Maintenance Organization ( O) 6y521sg7-07v3-4g8o-8voh-103te5189nv9 4d881ck2-16i1-0z0o-3gqi-149lg4951gc5 ANSI-Health Maintenance Organization ( O) 270y0520-nf6t-4490-ue51-hj59a5wz0596 112t1714-nm6i-1115-lk08-qh86u1hu0605 ANSI-Health Maintenance Organization ( O) k25dqk50-0dm5-1z33-q539-d55p9cg3cu64 l34rpe22-1bf5-7z39-a993-v30c8rx6tp31 ANSI-Health Maintenance Organization ( O) 2385466d-j36y-57y5-1096-ox0320d2l6i5 8286555t-f56i-67v7-7672-pb2763b6i5r0 WELLCARE -O/P [id number] 18 [id number] [employer] OPTION -O/P [id number] 18 [id number] ANSI-Health Maintenance Organization ( O) 4i5546l2-06na-14y1-sczk-3gvd484polxs 7p2959a8-56ne-74l1-hjdr-6ved604hvzwq ANSI-Health Maintenance Organization ( O) l288749s-1297-288g-49p8-evl841i414la a022092e-1702-552i-69k4-nfw801m281ml ANSI-Medicare Part B f44zyhxc-2158-95qc-5281-0b5iv5507yc5 y87ryctb-4440-34yo-7510-6r6mk6491oi9 [employer] OPTIONS [id number] SP [id number] ANSI-Medicare Part B 9ess347j-u349-3nb6-mfn9-31a08910c36j 4wbp739k-d191-8ym0-dyd1-05f74964b76x ANSI-Medicare Part B 8j6025z4-jmvz-8164-f273-y3e75bo91322 2h2270a3-agvf-6029-c186-o7g97no50026 ANSI-Medicare Part B ei9b4p42-5u36-4s37-9faw-42k926u32min wi2c0m25-4i66-3h03-2obh-46g677c97iyq ANSI-Medicare Part B 3195x1u6-8ew4-544d-s383-7214ou0ui34e 4158z2b2-1dj1-877s-i228-1776vp7bj41m ANSI-Medicare Part B v00xo37s-6oja-9b7n-q923-8692hkl85v0r c33jm13h-2smx-7v0o-a625-3371mkb97s6b ANSI-Medicare Part B 2m683633-43v2-227l-cs0n-yrvi9051i7mv 2m445015-39y8-337q-fu9a-dgmg9662u8xy [employer] OPT[employer] [id number] SP [id number] ANSI-Medicare Part B 3sj1s6br-8311-6540-1wrz-w26159997077 1rq9g1ls-6263-7383-6dlf-t80025137938 ANSI-Medicare Part B g861y9gs-z4n9-9wi9-4480-864a2m8zidy5 y478x5gh-c4n8-6bk9-0424-381r7b0fnxt2 ANSI-Medicare Part B a989y852-1o4n-91ep-972s-c513x5u2nd3a u000y148-0k9w-54eq-421d-r394s3t1lc8a ANSI-Medicare Part B mdl18l33-mi77-97q1-1o67-9q477703yl59 mia91y88-bz43-79k3-7l26-7n801839ep24 ANSI-Medicare Part B 1187x8cs-29c9-24wb-6pf4-7w5u40o6541n 2178g9zr-25o1-04bz-8ms4-9r7p85j6947e ANSI-Medicare Part B 3u05y25k-n18c-6468-0i4d-986b2z4857j4 7y01r81s-k42v-2736-1d7b-211c6j5615a3 ANSI-Medicare Part B 13c6z2gh-243r-5p86-lw64-m60fi0s4b16i 60i6v1xp-798j-8j47-yr06-i18mu6o6s19s ANSI-Medicare Part B x6736023-7863-7u64-9q49-7gk882p2j940 q5933119-9798-2e02-5f94-7my951d7e650 ANSI-Medicare Part B a29ty4j0-5271-0003-5l9b-ew876zc3401h g59ql8x1-0983-7187-1x4p-zs462ky3027i ANSI-Medicare Part B 9ej91919-35n9-84f8-243w-o3kexfp21a31 2mb26692-30h9-17s2-001o-i8gkrni95s06 ANSI-Medicare Part B ybx514rk-1y0j-8opl-8tko-1x586o18w135 ryg168xz-6l2m-1oye-0vhx-7t229j67f348 ANSI-Medicare Part B 6gee7b6s-s881-8428-1s9v-76s4y8my3hzv 4dcm3y5j-f194-0891-8b4d-36v5n2zt0pqh ANSI-Medicare Part B 34x0u54o-0i9n-9x09-194v-92y957613r6z 07b5c56e-2p7g-7n01-473n-53c274356j4q ANSI-Medicare Part B 6q053103-5c74-7c33-3mb9-a171505gz26i 8o407501-5i14-8b06-7rg9-g520595px02k ANSI-Medicare Part B nx9e569g-3y03-551b-vu15-v077970a499r cr5r844z-0p60-068h-iz80-t168041t495j ANSI-Medicare Part B 2258363x-t391-9n80-46i2-c808ve28391e 5081394g-i175-8a05-43z6-r483ym84074r ANSI-Medicare Part B 49741615-8r07-5851-20zu-7s10xnv11707 35305756-0n19-0106-38kj-0f74wcr23241 ANSI-Medicare Part B 082233np-83y5-6071-v075-5t9bzsly8489 060308kj-93e5-5637-n594-7r0ohpbo0824 ANSI-Medicare Part B k76fy7u9-01fg-9093-957r-533yt19t9r08 x65ur5m7-45pz-8106-231y-122cn84l7b32 ANSI-Medicare Part B 77h7l3y3-285l-674t-24r9-2vzh485r72qm 71w5o7g4-611y-222g-94d0-9cul912o94xn ANSI-Medicare Part B 6z000001-mre2-4rn7-9296-z99455l96041 1h105459-xig4-8vg9-1746-c60128d47431 ANSI-Medicare Part B 711xn27x-2t8p-154z-kn55-29622i855e63 804rp31l-4j5d-527b-kt75-53105z611d67 ANSI-Medicare Part B 64o44mi6-6lhd-56th-1w50-3z3ysh5812lk 00w79gf6-3lut-48bq-2r75-6y2rzv3550px ANSI-Medicare Part B 82f38nyw-31r8-515t-v980-4871y98qdg1q 88f95ooy-45q9-208n-w915-9150f56htk6g ANSI-Medicare Part B 98lr83b0-22zi-5564-246n-u10i3c462mn7 06tz58j0-57vu-8996-365u-l84i6x149ne4 ANSI-Medicare Part B 94q2ktc8-5hbx-5z96-95y2-g6745913nnt9 06f5imc2-6sqx-0f85-23g4-d0047991ihf7 ANSI-Medicare Part B 2e3w1ryz-n30p-3j10-c038-9037sg8u3s41 0d6k8emu-u24c-0x76-q334-5703lw6k1s89 ANSI-Medicare Part B 17ua42j2-g3jf-744m-v272-456779b2gdu4 47xo93y3-o2ec-263i-y641-626519q0itt7 ANSI-Medicare Part B su6268ek-0212-3n3u-e612-4352dq457c28 rq3321rq-4896-0w8g-w125-6945bn085y71 [facility] l6ml9bnq-4d8a-6pw8-kn3w-z778r94f9w6b p5it9daj-4q0f-2lv0-fd8e-x427c79s3p4u ANSI-Medicare Part B 01gj6j6m-p98b-94ot-llq2-h226t6988a41 47kl1o8t-m06z-98hu-yyx0-s549h2186d34 ANSI-Medicare Part B 6b1lntw2-7628-0r32-rg19-d5h68t73fc23 5f7itho5-6083-2f05-au98-p6n10o02wx49 [employer] OPT[employer]/[place] O [id number] S [id number] [employer] OPTIONS [id number] SP [id number] [employer] OPTIONS/[place] O [id number] S [id number] MEDICARE C [id number] S [id number] A [employer] OPTION -O/P [id number] 18 [id number] [employer] [id number] SP [id number] [employer] OPTIONS [id number] SP [id number] [facility] Part B [id number] Self Medicaid [facility] Part B [id number] Self TODAYS OPTION-CLINIC [id number] 18 [id number] [facility] MEDICAID [id number] SP [id number] M [id number] MEDICARE COMPLETE [id number] SP [id number] [place] [id number] SP [id number] P MEDICARE COMPLETE [id number] SP [id number] MEDICARE [id number] SP [id number] [place] [id number] SP [id number] EM[facility] [id number] SP [id number] [employer] MEDICARE COMPLETE - O/P [id number] 18 [id number] [employer] MEDICARE COMPLETE - O/P . 18 . MEDICAID [id number] SP [id number] MEDICAID [id number] SP [id number] MEDICARE COMPLETE-UHC O [id number] S [id number] MEDICAID M [id number] S [id number] MEDICARE COMPLETE-UHC O [id number] S [id number] MEDICAID M [id number] S [id number] MEDICARE COMPLETE-UHC O [id number] S [id number] UNHC MEDICARE COMPLETE - CLINIC [id number] 18 [id number] C MEDICAID [id number] P UH COMMERCIAL HM [id number] 18 [id number] UH COMMERCIAL HM [id number] 18 [id number] RHC MEDICARE PART A [facility] [id number] 18 [id number] MEDICARE [id number] SP [id number] A ANSI-Health Maintenance Organization ( O) 6f11j274-89c1-35a4-ly79-cu94y2m59t46 4c91o949-76i5-31k9-jy43-cv17y1a96v14 ANSI-Medicare Part B y4580n25-oi54-1927-2n99-67kzz778451m x7962g81-wl84-9767-2i58-71zxj083245j ANSI-Medicare Part B 6lpy89zl-u73g-5c34-gatz-9v54s5918840 9qgq30pk-e84v-3a33-fqxd-9d03d8887223 ANSI-Health Maintenance Organization (HM O) t1xk31mq-m19i-0g8o-tp95-t3g693l05965 b9qm23zu-u44r-0h5q-[id number] ANSI-[employer] Maintenance [facility] ([facility]) [id number] ANSI-Medicare Part B [id number] ANSI-[facility] Maintenance [facility] ([facility]) [id number] ANSI-Medicare Part B [id number] ANSI-Medicare Part B [id number] [facility] ( O) [id number] [facility] ( O) [id number] ANSI-Medicare Part B [id number] [facility] ( O) [id number] ANSI-Medicare Part B [id number] [facility] ( O) [id number] ANSI-Medicare Part B [id number] ANSI-[facility] Maintenance Organization ( O) [id number] Problems, Conditions, and Diagnoses Code Display Name Description Problem Type Effective Dates Data Source(s) M10.9 Gout, unspecified Gout, unspecified Diagnosis 05/09/2021 08:03:51 AM EDT [facility] N18.6 End stage renal disease End stage renal disease Diagno sis 05/09/2021 08:03:51 AM EDT [facility] Z79.4 care home (current) use of insulin intermediate frame tender (cu rrent) use of insulin Diagnosis 05/09/2021 08:03:51 AM EDT [facility] E11.59 Type 2 diabetes mellitus with other circ ulatory complications Type 2 diabetes mellitus with other circ Diagnosis 05/09/2021 08:03:51 AM EDT [facility] N40.1 Benign prostatic hyperplasia with lower urinary tract symptoms Benign prostatic hyperplasia with lower Diagnosis 05/09/2021 08:03:51 AM EDT [facility] F32.9 Major depressive disorder, single episod e, unspecified Major depressive disorder, single episod Diagnosis 05/09/2021 08:03:51 AM EDT [facility] F41.9 Anxiety disorder, unspecified Anxiety disorder, unspec ified Diagnosis 05/09/2021 08:03:51 AM EDT [facility] I10 Essential (primary) hypertension Essential (primary) h ypertension Diagnosis 05/09/2021 08:03:51 AM EDT [facility] E78.5 Hyperlipidemia, unspecified Hyperlipidemia, unspecifie d Diagnosis 05/09/2021 08:03:51 AM EDT [facility] I25.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 Coronary atherosclerosis due to calcifie Diagnosis 05/09/2021 08:03:51 AM EDT [facility] I25.10 Atherosclerotic heart diseas e of [place] coronary artery without angina pectoris Atherosclerotic heart disease of [place] Diagnosis 05/09/2021 08:03:51 AM EDT [facility] I42.9 Cardiomyopathy, unspecified Cardiomyopathy, unspecifie d Diagnosis 05/09/2021 08:03:51 AM EDT [facility] Z86.718 Personal history of other venous thrombo sis and embolism Personal history of other venous thrombo Diagnosis 01/03/2021 08:16:35 AM [facility] R41.3 Other amnesia Other amnesia Diagnosis 01/03/2021 08:16:35 AM [facility] E87.5 Hyperkalemia Hyperkalemia Diagnosis 01/03/2021 08:16:35 A M [facility] J44.9 Chronic obstructive pulmonary disease, u nspecified Chronic obstructive pulmonary disease, u Diagnosis 01/03/2021 08:16:35 AM [facility] Z01.818 Encounter for other preprocedural examin ation Encounter for other preprocedural examin Diagnosis 10/16/2020 10:34:29 AM [facility] D50.9 Iron deficiency anemia, unspecified Iron deficie ncy anemia, unspecified Diagnosis 10/16/2020 10:34:29 AM [facility] Z99.2 Dependence on renal dialysis Dependence on renal dialy [facility] Diagnosis 10/16/2020 10:34:29 AM [facility] D63.1 Anemia in chronic kidney disease Anemia in chron ic kidney disease Diagnosis 10/16/2020 10:34:29 AM [facility] [id number] Personal history of nicotine dependence Personal history of nicotine dependence Diagnosis 08/27/2020 04:44:[address] [facility] [id number] Latex allergy status Latex allergy status Diagnosis 08/27/2020 04:44:[address] [facility] Z7982 intermediate frame tender (current) use of aspirin care home (cu rrent) use of aspirin Diagnosis 08/27/2020 04:44:[address] [facility] Z992 Dependence on renal dialysis Dependence on renal dialy sis Diagnosis 08/27/2020 04:44:[address] [facility] Z7901 intermediate frame tender (current) use of anticoagulant s care home (current) use of anticoagulants Diagnosis 08/27/2020 04:44:[address] 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 E7800 Pure hypercholesterolemia, unspecified P ure hypercholesterolemia, unspecified Diagnosis 08/27/2020 04:44:[address] [facility] N186 End stage renal disease End stage renal disease Diagno sis 08/27/2020 04:44:[address] [facility] S91100 Atherosclerosis of [place] ar teries of extremities with intermittent claudication, right leg Atherosclerosis of [place] arteries of ex tremities with intermittent claudication, right leg Diagnosis 08/27/2020 04:44:[address] [facility] [id number] Pain in right lower leg Pain in right lower leg Diagno sis 08/27/2020 04:44:[address] [facility] F32.9 Major depression, single episode Major d epressive disorder, single episode, unspecified Problem 09/11/2021 12:00:00 AM EST eCW1 ([facility]) G89.29 [id number] Other chronic pain Problem 09/11/2021 12:00: 00 AM EST eCW1 ([facility]) E11.22 [id number] Type 2 diabetes claudio itus with diabetic chronic kidney disease, unspecified CKD stage, unspecified whether terminal carman insulin use Problem 07/10/2021 12:00:00 AM EDT eCW1 ([facility]) Z01.818 Pre-op evaluation Pre-op evaluation [id number] 10/16/2020 12:00:00 AM EST [facility] V43.1 Pseudophakia Pseudophakia Problem 09/12/2020 12:00:00 A M EST TY ([facility] MD [facility]) V43.1 Pseudophakia Pseudophakia Problem 09/12/2020 12:00:00 A M EST TY (Raven Hutchison MD [facility]) V43.1 Pseudophakia Pseudophakia Problem 09/12/2020 12:00:00 A M EST TY (Raven Hutchison MD [facility]) V43.1 Pseudophakia Pseudophakia Problem 09/12/2020 12:00:00 A M EST TY (Raven Hutchison MD [facility]) V43.1 Pseudophakia Pseudophakia Problem 09/12/2020 12:00:00 A M EST TY (Raven Hutchison MD [facility]) V43.1 Pseudophakia Pseudophakia Problem 09/12/2020 12:00:00 A M EST TY (Raven Hutchison MD [facility]) V43.1 Pseudophakia Pseudophakia Problem 09/12/2020 12:00:00 A M EST TY (Raven Hutchison MD [facility]) V43.1 Pseudophakia Pseudophakia Problem 09/12/2020 12:00:00 A M EST TY (Raven Hutchison MD [facility]) R41.3 Memory loss Memory loss [id number] 08/21/2020 12:00:00 AM EDT [facility] E87.5 Hyperkalemia Hyperkalemia [id number] 08/07/2020 12:00:00 A M EDT [facility] Surgeries/Procedures Procedure Description Date Indications Data Source(s) Amb Glucose Monitoring Interpretation And Report 09/02 12:00:00 AM EST [facility] ([facility] ) OFFICE OUTPATIENT VISIT 40 MINUTES 09/02/2021 12:00:00 AM EST [facility] ([facility]) THERAPEUTIC PROPHYLACTIC/DX INJECTION SUBQ/IM 09/02/20 21 12:00:00 AM EST [facility] ([facility]) Diabetic Foot Exam 08/26/2021 12:00:00 AM EDT [facility] ([facility]) OFFICE OUTPATIENT VISIT 25 MINUTES 08/26/2021 12:00:00 AM EDT [facility] ([facility], ) OFFICE OUTPATIENT VISIT 15 MINUTES 08/07/2021 12:00:00 AM EDT [facility] ([facility], ) ARTHROCENTESIS ASPIR&/INJECTION MAJOR JT/BURSA 021 12:00:00 AM EDT [facility] ([facility] ) Amb Glucose Monitoring Interpretation And Report 06/10 12:00:00 AM EDT [facility] ([facility] ) OFFICE OUTPATIENT VISIT 25 MINUTES 06/10/2021 12:00:00 AM EDT [facility] ([facility]) ARTHROCENTESIS ASPIR&/INJECTION MAJOR JT/BURSA 021 12:00:00 AM EDT [facility] ([facility] ) RADIOLOGIC EXAM KNEE COMPLETE 4/MORE VIEWS 04/17/2021 12:00:00 AM EDT [facility] ([facility]) OFFICE OUTPATIENT VISIT 15 MINUTES 04/17/2021 12:00:00 AM EDT [facility] ([facility] ) RADIOLOGIC EXAM KNEE COMPLETE 4/MORE VIEWS 04/17/2021 12:00:00 AM EDT [facility] ([facility]) Amb Glucose Monitoring Interpretation And Report 02/25 12:00:00 AM EDT [facility] ([facility]) THERAPEUTIC PROPHYLACTIC/DX INJECTION SUBQ/IM 02/26/20 21 12:00:00 AM EDT [facility] ([facility]) OFFICE OUTPATIENT VISIT 25 MINUTES 02/25/2021 12:00:00 AM EDT [facility] ([facility]) OFFICE OUTPATIENT VISIT 15 MINUTES 12/31/2020 12:00:00 AM EST [facility] ([facility]) MRI Upper Extremity Any Joint 12/17/2020 12:00:[address] [facility] ([facility] ) RADEX ELBOW COMPLETE MINIMUM 3 VIEWS 12/03/2020 12:00: 00 AM EST [facility] ([facility] ) OFFICE OUTPATIENT VISIT 25 MINUTES 12/03/2020 12:00:00 AM EST [facility] ([facility] ) Amb Glucose Monitoring Interpretation And Report 10/29 12:00:00 AM EST [facility] ([facility]) ECG ROUTINE ECG W/LEAST 12 LDS W/I&R <td>POCT AMB EKG</td><td>Routine</td><td>10/16/2020 12:03 PM EST</td><td> Coronary artery disease due to calcified coronary lesion Cardiomyopathy</td><td> </td> 10/16/2020 05:03:00 PM EST CardiomyopathyCoronary artery disease due to calcified coronary lesion [facility] Cardiomyopathy Coronary artery disease due to calcified coronary lesion OPH BMTRY PRTL COHER INTRFRMTRY IO LENS PWR CHARITY Ophtha lmic biometry - IOL Master with IOL calculation (26, LT) 10/10/2020 12:00:00 AM EST [place] (Raven Hutchison MD [facility]) POCT AMB EKG <td>POCT AMB EKG</td><td>Rou shauna</td><td>09/29/2020 9:52 PM EST</td><td> Coronary artery disease due to calcified coronary lesion Cardiomyopathy</td><td> </td> 09/30/2020 02:52:00 AM EST CardiomyopathyCoronary artery disease due to calcified coronary lesion [facility] Cardiomyopathy Coronary artery disease due to calcified coronary lesion Extracapsular extraction of lens (procedure) History o f extracapsular cataract extraction PCIOL OD by Dr. Lim 09/05/2020 09/12/2020 12:00:00 AM EST TY (Raven Hutchison MD [facility]) OPH BMTRY PRTL COHER INTRFRMTRY IO LENS PWR CHARITY Ophtha lmic biometry - IOL Master with IOL calculation (Professional Comp., Left side) 09/12/2020 12:00:00 AM EST TY (Raven Hutchison MD [facility]) OPH BMTRY PRTL COHER INTRFRMTRY IO LENS PWR CHARITY Ophtha lmic biometry - IOL Master with IOL calculation (26, LT) 09/12/2020 12:00:00 AM EST [place] (Raven Hutchison MD [facility]) Extracapsular cataract removal with intraocular lens i mplant (Right Side) Extracapsular cataract removal with intraocular lens implant (Right Side) 09/05/2020 12:00:00 AM EST TY (Raven lowe MD [facility]) THERAPEUTIC PROPHYLACTIC/DX INJECTION SUBQ/IM 08/27/20 12:00:00 AM EST [facility] ([facility]) OPH BMTRY PRTL COHER INTRFRMTRY IO LENS PWR CHARITY Ophtha lmic biometry - IOL Master with IOL calculation (Right Side, WAIVER OF LIABILITY ON FILE (ABN)) 08/20/2020 12:00:00 AM EDT TY (Raven Hutchison MD [facility]) Intermediate Eye Exam Established Patient (Signi/Sep E denver. & Man.) Intermediate Eye Exam Established Patient (Signi/Sep Eval. & Man.) 08/20/2020 12:00:00 AM EDT TY (Raven Hutchison MD [facility]) ELECTROENCEPHALOGRAM W/REC AWAKE&ASLEEP 08/06/2020 12: 00:00 AM EDT [facility] ([facility] ) ELECTROENCEPHALOGRAM W/REC AWAKE&ASLEEP 08/06/2020 12: 00:00 AM EDT [facility] ([facility], ) Results ID Date Data Source [id number] 09/02/2021 03:27:00 PM EST [facility] ([facility]) Name Value Range Interpretation Code Description Data Esthela rce(s) Supporting Document(s) Glucose [Mass/volume] in Serum or Plasma 378 [facility] ([facility]) Hemoglobin A1c/Hemoglobin.total in Blood 8.6 [facility] ([facility]) ID Date Data Source [id number] 12/31/2020 05:50:00 PM EST [facility] Name Value Range Interpretation Code Description Data Esthela rce(s) Supporting Document(s) SARS-CoV-2 (COVID 19) NEGATIVE - SARS-CoV-2 (COVID19) [facility] This lab was ordered by [facility] a nd reported by [facility]. ID Date Data Source [id number] 11/23/2020 08:30:00 AM EST [facility] Name Value Range Interpretation Code Description Data Esthela rce(s) Supporting Document(s) SARS coronavirus 2 RNA Not Detected [facility] This lab was ordered by [facility] and reported by [facility]. ID Date Data Source [id number] 10/26/2020 09:00:00 AM EST [facility] Name Value Range Interpretation Code Description Data Esthela rce(s) Supporting Document(s) SARS coronavirus 2 RNA [facility] This lab was ordered by [facility] and reported by [facility]. ID Date Data Source [id number] 10/02/2020 10:53:00 AM EST [facility] Name Value Range Interpretation Code Description Data Esthela rce(s) Supporting Document(s) SARS coronavirus 2 RNA [Presence] in Res piratory specimen by BARI with probe detection [facility] This lab was ordered by [facility] a nd reported by [facility]. ID Date Data Source [id number] 09/28/2020 08:05:00 AM EST [facility] Name Value Range Interpretation Code Description Data Esthela rce(s) Supporting Document(s) SARS coronavirus 2 RNA [facility] This lab was ordered by [facility] and reported by [facility]. ID Date Data Source [id number] 08/31/2020 12:00:00 PM EST [facility] Name Value Range Interpretation Code Description Data Esthela rce(s) Supporting Document(s) SARS coronavirus 2 RNA [facility] This lab was ordered by [facility] and reported by [facility]. ID Date Data Source [id number] 08/29/2020 11:57:00 AM EST [facility] [address] [place] [address] PHONE: [phone] FAX: [phone] [facility] .................. : [facility] : [id number] ROOM. ................. : TR-07 Number ................... : [id number] Stay type ............. : E/R Discharge Date......... ... : 08/27/20 Admit Date ......... : 08/27/20 Admit Phys .................... : GISSEL HALLE Date of ....... : 1950 Family Phys ................... : CLAYTON Sanchez Phone .................. : [phone] Age ................................ : 70 Film# .................. .:[id number] Sex ................................. : M Unsigned transcriptions are preliminary reports and do not represent a medical or legal document DOPPLER VENOUS BILAT LEG [id number] COMPLETE:08/27/20 18:54 ADB [id number] Reason(s): RLE pain and s welling, hx prior DVt BILATERAL LOWER EXTREMITY VENOUS DUPLEX DOPPLER ULTRASOUND: HISTORY: Right lower extremity pain and swelling. COMPARISON: None. FINDINGS: There is normal helms scale compression ultrasound of the right and left common femoral veins, proximal greater saphenous veins, superficial femoral veins and popliteal veins. The patency of these structures is also confirmed with normal color Doppler ultrasound and there is normal cardiorespiratory phases seen with augmented flow throughout the right and left lower extremity deep venous system. Patency in the tibioperoneal trunk is also documented. IMPRESSION: Negative study. No DVT in either lower extremity. Electronically Reviewed and Signed By Jony Menezes MD , 08/29/20 11:57, [facility] Transcribe Initials: MIMI , Transcribe Date: 08/27/20 21:52, Dictation Date: Copy for: GISSEL Zacarias via fax Copy for: EMERGENCY DEPT via [employer] Copy for: 710 MED REC DISCHARGED Page 1 of 1 Name Value Range Interpretation Code Description Data Esthela rce(s) Supporting Document(s) ID Date Data Source [id number] 08/28/2020 09:58:00 AM EST [facility] [address] [place] [address] PHONE: [phone] FAX: [phone] Name .................. : YONI Zacarias Acct Number.................. : [id number] ROOM. ................. : TR-07 Number ................... : [id number] Stay type ............. : E/R Discharge Date......... ... : 08/27/20 Admit Date ......... : 08/27/20 Admit Phys .................... : [facility] Date of ....... : 1950 Family Phys ................... : CLAYTON A Phone .................. : [phone] Age ................................ : 70 Film# .................. .:[id number] Sex ................................. : M Unsigned transcriptions are preliminary reports and do not represent a medical or legal document CHEST PORTABLE [id number] COMPLETE:08/27/20 19:46 BEM [id number] Reason(s): RLE pain and swelling, atraumatic PORTABLE CHEST X-RAY: HISTORY: Right lower extremity pain and swelling, atraumatic. FINDINGS: The cardiac and mediastinal silhouettes appear normal and the lungs are clear. The bones and soft tissues are normal. The upper abdomen is unremarkable. IMPRESSION: No acute disease identifiable. Electronically Reviewed and Signed By Imtiaz Dunbar MD , 08/28/20 09:58, [facility] Transcribe Initials: MIMI , Transcribe Date: 08/28/20 00:58, Dictation Date: Copy for: GISSELEFRAIN Zacarias via fax Copy for: EMERGENCY DEPT via modem Copy for: 710 MED REC DISCHARGED Page 1 of 1 Name Value Range Interpretation Code Description Data Esthela rce(s) Supporting Document(s) ID Date Data Source [id number] 08/28/2020 09:57:00 AM EST [facility] [address] [place] [address] PHONE: [phone] FAX: [phone] Name .................. : YONI Zacarias Acct Number.................. : [id number] [facility] ................. [facility]... : [id number] Stay type ............. : E/R Discharge Date......... ... : 08/27/20 Admit Date ......... : 08/27/20 Admit Phys .................... : GISSEL HALLE Date of ....... : 1950 Family Phys ................... : CLAYTON A Phone .................. : [phone] Age ................................ : 70 Film# .................. .:[id number] Sex ................................. : M Unsigned transcriptions are preliminary reports and do not represent a medical or legal document TIBIA-FIBULA AP & LAT RT [id number] COMPLETE:08/27/20 19:46 BE [address] Reason(s): atraumatic lower leg swellin and pain RIGHT TIBIA AND FIBULA: FINDINGS: There are old healed fractures to the distal right tibial and fibular diaphysis. No acute fractures are seen. The articular surfaces are intact. IMPRESSION: Old healed fractures to the distal right tibial and fibular diaphysis. Electronically Reviewed and Signed By Imtiaz Dunbar MD , 08/28/20 09:58, [facility] Transcribe Initials: MIMI , Transcribe Date: 08/28/20 00:55, Dictation Date: Copy for: GISSEL Zacarias via fax Copy for: EMERGENCY DEPT via modem Copy for: 710 MED REC DISCHARGED Page 1 of 1 Name Value Range Interpretation Code Description Data Esthela rce(s) Supporting Document(s) ID Date Data Source [id number] 08/28/2020 09:54:00 AM EST [facility] [address] [place] [address] PHONE: [phone] FAX: [phone] Name .................. : CASTILLO YOVANI Zacarias Acct Number.................. : [id number] ROOM. ................. : TR-07 MR Number ................... : [id number] Stay type ............. : E/R Discharge Date......... ... : 08/27/20 Admit Date ......... : 08/27/20 Admit Phys .................... : GISSEL NERI Date of ....... : 1950 Family Phys ................... : CLAYTON Sanchez Phone .................. : [phone] Age ................................ : 70 Film# .................. .:[id number] Sex ................................. : M Unsigned transcriptions are preliminary reports and do not represent a medical or legal document ANKLE COMPLETE RT [id number] COMPLETE:08/27/20 19:46 BEM 61648 Reaso n(s): Trauma/Injury RIGHT ANKLE X-RAY: FINDINGS: There are old healed fractures to the distal right tibial and fibular diaphysis. No acute fractures are seen. Superior calcaneal spurring is noted. IMPRESSION: Old healed fractures to the distal right tibia and fibula diaphysis. Electronically Reviewed and Signed By Imtiaz Dunbar MD , 08/28/20 09:54, [facility] Transcribe Initials: DZ , Transcribe Date: 08/28/20 00:53, Dictation Date: Copy for: GISSEL Zacarias via fax Copy for: EMERGENCY DEPT via [facility] Copy for: 710 MED REC DISCHARGED Page 1 of 1 Name Value Range Interpretation Code Description Data Esthela rce(s) Supporting Document(s) ID Date Data Source [id number] 08/28/2020 09:54:00 AM EST [facility] [address] [place] [address] PHONE: [phone] FAX: [phone] Name .................. : YONI Zacarias Acct Number.................. : [id number] ROOM. ................. : TR-07 MR Number ................... : [id number] Stay type ............. : E/R Discharge Date......... ... : 08/27/20 Admit Date ......... : 08/27/20 Admit Phys .................... : GISSEL HALLE Date of ....... : 1950 Family Phys ................... : CLAYTON A Phone .................. : [phone] Age ................................ : 70 Film# .................. .:[id number] Sex ................................. : M Unsigned transcriptions are preliminary reports and do not represent a medical or legal document FO[place]TE-[address] [place] [id number] COMPLETE:08/27/20 19:46 BE [address]161 Reason(s): atraumatic foot, ankle, lower leg swelling and pain RIGHT FOOT X-RAY: HISTORY: Atraumatic foot and ankle, lower leg pain and swelling. FINDINGS: There is superior calcaneal spurring. No fractures are seen. Bone mineralization is intact. There is a mild hallux valgus deformity. There may be mild arthritic change at the first MTP joint. IMPRESSION: Superior calcaneal spur. Mild hallux valgus deformity with findings at the first MTP joint consistent with degenerative disease. Electronically Reviewed and Signed By Imtiaz Dunbar MD , 08/28/20 09:54, [facility] Transcribe Initials: DZ , Transcribe Date: 08/28/20 00:51, Dictation Date: Copy for: GISSEL Zacarias via fax Copy for: EMERGENCY DEPT via modem Copy for: 710 MED REC DISCHARGED Page 1 of 1 Name Value Range Interpretation Code Description Data Esthela rce(s) Supporting Document(s) ID Date Data Source [id number] 08/27/2020 04:44:00 PM EST [facility] 1 OrderSheet [facility] Emergency Department [address] [place] [address] Phone #: ext- [phone] 08/27/2020 16:42 Patient: YOVANI CASTILLO Sex: M : 1950 Age: 70yWEIGHT:78.9 kg (S) HEIGHT:69 inches (S) BMI:25.7ALLERGIES: Actos, capsacin, Crestor, Dapsone, Demerol, Dilantin, Gabapentin, Glucaphage, Latex,Levaquin, Lisinopril, Lyrica, Penicillins, Phenabarbitol, Requip, Tegratol, Triple antibiotic ointmentCHIEF COMPLAINT: pain, swelling, pain, swellingDIAGNOSIS: Intermittent claudication, Renal failure syndromeLAB ORDERSOrder Description Priority Entered Acknowledged InitialedBNP STAT 17:08 08/27/2020 17:11 Scott Tran; Ernestina MoraCBC w Diff STAT 17:08/27/2020 17:11 Scott Tran; Ernestina MoraCMP STAT 17:08 08/27/2020 17:11 Scott Tran; Ernestina MoraLactic Acid STAT 17:08 08/27/2020 17:11 Scott Tran; Ernestina MoraPT/PTT STAT 17:08 08/27/2020 17:11 Scott Tran; Ernestina MoraTroponin-T STAT 17:08 08/27/2020 17:11 Scott Tran; Ernestina MoraUrinalysis (Clean STAT 17:08/27/2020 17:40 Stefanie Tran) Scott DE OLIVEIRA; Ernestina MoraDIAGNOSTIC STUDY ORDERSOrder Description Priority Entered Acknowledged InitialedUS Lower Ext STAT 17:08 08/27/2020 18:33 Marc,Venous Bilateral Scott DE OLIVEIRA; Ernestina Mora(Oxygen?(No)) Reason for Study: RLE pain and swelling, hx prior DVtFoot Complete STAT 17:08 08/27/2020 18:33 Marc,Right Scott DE OLIVEIRA; Ernestina Mora(Oxygen?(No)) Reason for Study: atraumatic foot, ankle, lower leg swelling and painAnkle Complete STAT 17:08 08/27/2020 18:33 Marc,Right Scott DE OLIVEIRA; Ernestina Mora(Oxygen?(No)) Reason for Study: Trauma/InjuryTibia Fibula AP And STAT 17:08/27/2020 18:33 Cruz Tran OrderSheet [facility] Emergency Department [address] [place] [address] Phone #: ext- [phone] 08/27/2020 16:42 --- Patient: YOVANI CASTILLO Sex: M : 1950 Age: 70yLAT Right Scott DE OLIVEIRA; Ernestina Mora(Oxygen?(No)) Reason for Study: atraumatic lower leg swellin and painChest Portable 1 STAT 17:08/27/2020 18:33 MarcView Scott DE OLIVEIRA; Ernestina Mora(Oxygen?(No)) Reason for Study: RLE pain and swelling, atraumaticMEDICATION/IV/DRIP/FLUID ORDERSOrder Description Priority Entered Acknowledged InitialedVicodin (5-325mg) 17:08 08/27/2020 17:16 Tran,PO 1 tab (HIGH Scott DE OLIVEIRA; Ernestina MoraALERTMEDICATION)Morphine IVP 2 mg 18:52 08/27/2020 18:55 Marc,(NOW x1, keep o2 Scott DE OLIVEIRA; Ernestina Jackson.Kieransat > 90%, HIGHALERTMEDICATION)Vicodin (5-325mg) 20:17 08/27/2020 20:23 Marc,PO 1 tab (HIGH Cali Swatsworth Ernestina MoraALERT PA;MEDICATION)GENERAL ORDERSOrder Description Priority Entered Acknowledged InitialedCardiac Monitor 17:08 08/27/2020 17:11 Marc,(continuous) Scott DE OLIVEIRA; Ernestina MoraBlood Pressure 17:08 08/27/2020 17:11 Marc,Monitor Scott DE OLIVEIRA; Ernestina MoraEKG 17:08 08/27/2020 17:15 Scott Tran; Ernestina MoraPulse Oximetry 17:08 08/27/2020 17:11 Marc,Continuous Scott DE OLIVEIRA; Ernestina MoraObtain Old Records 17:08 08/27/2020 17:15 Scott Tran; Ernestina MoraObtain Old EKG 17:08 08/27/2020 17:15 Scott Tran; Ernestina MoraSaline Lock 17:08 08/27/2020 17:11 Scott Tran; Ernestina MoraVitals 17:08 08/27/2020 17:11 Scott Tran; Ernestina MoraWarm blanket 17:08 08/27/2020 17:11 Marc, 3 OrderSheet [facility] Emergency Department [address] [place] [address] Phone #: ext- [phone] 08/27/2020 16:42 Patient: YOVANI CASTILLO Sex: M : 1950 Age: 70Elvis DE OLIVEIRA; Ernestina MoraVitals every 15 17:08 08/27/2020 17:11 sherice Tran; Ernestina Mora[Electronically signed by Scott Chauhan (19:05 08/27/2020)][Electronically signed by Ernestina Tran R.N. (20:57 08/27/2020)][Electronically signed by Cali Greco (06:23 08/28/2020)][Electronically locked by Ernestina Tran R.N. (20:57 08/27/2020)] Name Value Range Interpretation Code Description Data Esthela rce(s) Supporting Document(s) ID Date Data Source [id number] 08/27/2020 04:44:00 PM EST [facility] 1 Medication Reconciliation Report [facility] Emergency Department [address] [place] [address] Phone #: ext- [phone] 08/27/2020 16:42 [id number] Sex: M : 1950 Age: 70yWeight: 78.9 kgHeight/Length: 69 in.BMI: 25.7ALLERGIES: Actos, capsacin, Crestor, Dapsone, Demerol, Dilantin, Gabapentin, Glucaphage, Latex,Levaquin, Lisinopril, Lyrica, Penicillins, Phenabarbitol, Requip, Tegratol, Triple antibiotic ointmentThe patient's Home Medications are listed below:CONTINUE TAKING THE FOLLOWING MEDICATIONS: Advair Diskus Inhalation 230-21 mcg/act, 2x a day Albuterol Sulfate Inhalation ((2.5 MG/3ML) 0.083%), 2x a day Aspirin Oral (81 mg), daily Butrans Transdermal (20 mcg/hr) 1 patch, once a week Calcitriol Oral (0.25 mcg) 1 capsule, daily Coumadin Oral 10 mg, daily Ferrous Sulfate Oral (325 (65 Fe) mg) 1 tablet, daily Flonase Allergy Relief Nasal (50 mcg/act) 1 spray each nostril, daily Gabapentin Oral 100 mg, daily Glucagon Emergency Injection, prn Lantus SoloStar Subcutaneous, 2x a day, 8 units in AM, 5 units in PM Lipitor Oral 40 mg, daily MiraLax Oral 17 gm, daily NovoLOG Subcutaneous, 3x a day, 7units/5units/7 units Procrit Injection (80928 unit/mL) 1 ml S/C, monthly 2 Medication Reconciliation Report [facility] Emergency Department [address] [place] [address] Phone #: ext- [phone] 08/27/2020 16:42 Patient: YOVANI CASTILLO Sex: M : 1950 Age: 70y Tamsulosin HCl Oral (0.4 mg) 1 capsule, daily, at bedtime Vitamin D2 Oral (2000 unit) 1 tablet, dailyThe source(s) of the original Home Medication information:patient's family memberThe following Medications were given to the patient in the Emergency Department:VICODIN (5-325MG) [PO] PO 1 tab, administered: 08/27/2020 5:16:00 PMMorphine [IVP] IVP 2 mg, administered: 08/27/2020 6:55:00 PMVICODIN (5-325MG) [PO] PO 1 tab, administered: 08/27/2020 8:23:00 PMThe following Medications were prescribed to the patient:None. Name Value Range Interpretation Code Description Data Esthela rce(s) Supporting Document(s) ID Date Data Source [id number] 08/27/2020 04:44:00 PM EST [facility] 1 Medication Administration Record [facility] Emergency Department [address] [place] [address] Phone #: ext- [phone] 08/27/2020 16:42 Patient: YOVANI CASTILLO [facility]#: [id number] Sex: M : 1950 Age: 70yWeight: 78.9 kgHeight/Length: 69 inBMI: 25.7ALLERGIES: Actos, capsacin, Crestor, Dapsone, Demerol, Dilantin, Gabapentin, Glucaphage, Latex, Levaquin, Lisinopril,Lyrica, Penicillins, Phenabarbitol, Requip, Tegratol, Triple antibiotic ointment Date/Time Medication Administered Medication OrderedGiven VICODIN (5-325MG) [PO] Vicodin (5-325mg) PO 1 tab (HIGH17:16 08/27/2020 (ACETAMINOPHEN-HYDROCODONE) ALERT MEDICATION)Ernestina Tran R.N. Dose: 1 tab Tablets POGiven MORPHINE [IVP] Morphine IVP 2 mg (NOW x1, keep18:55 08/27/2020 Dose: 2 mg IVP o2 sat > 90%, HIGH ALERTWalErnestina clarke RCtNCt Site: #1 left AC MEDICATION)Given VICODIN (5-325MG) [PO] Vicodin (5-325mg) PO 1 tab (HIGH20:23 08/27/2020 (ACETAMINOPHEN-HYDROCODONE) ALERT MEDICATION)Ernestina Tran R.NCt Dose: 1 tab Tablets PO Name Value Range Interpretation Code Description Data Esthela rce(s) Supporting Document(s) ID Date Data Source [id number] 08/27/2020 04:44:00 PM EST [facility] 1 General Instructions [facility] Emergency Department [address] [place] [address] Phone #: ext- [phone] 08/27/2020 16:42 Patient: YOVANI CASTILLO Sex: M : 1950 Age: 70y(Electronically signed by YENNIFER Patiño 08/27/2020 19:05)Claudication of the right lower extremity with atherosclerosis of the [place] arteries in the right lowerextremity.Severe chronic renal failure- end stage disease.INSTRUCTIONS(Follow up with Dialysis tomorrow as scheduled.).Your Current Medications: Your current home medications have been reviewed.CONTINUE TAKING THE FOLLOWING MEDICATIONS:Advair Diskus Inhalation : 230-21 mcg/act 2x a day.Albuterol Sulfate Inhalation : Nebulization Solution (2.5 MG/3ML) 0.083%, 2x a day.Aspirin Oral : Tablet Chewable 81 mg, daily.Butrans Transdermal : Patch Weekly 20 mcg/hr, 1 patch once a week.Calcitriol Oral : Capsule 0.25 mcg, 1 capsule daily.Coumadin Oral : 10 mg daily.Ferrous Sulfate Oral : Tablet 325 (65 Fe) mg, 1 tablet daily.Flonase Allergy Relief Nasal : Suspension 50 mcg/act, 1 spray each nostril daily.Gabapentin Oral : 100 mg daily.Glucagon Emergency Injection : prn.Lantus SoloStar Subcutaneous : 2x a day, 8 units in AM, 5 units in PM.Lipitor Oral : 40 mg daily.MiraLax Oral : 17 gm daily.NovoLOG Subcutaneous : 3x a day, 7units/5units/7 units. 2 General Instructions [facility] Emergency Department [address] [place] [address] Phone #: ext- [phone] 08/27/2020 16:42 Patient: YOVANI CASTILLO Sex: M : 1950 Age: 70yProcrit Injection : Solution 14277 unit/mL, 1 ml S/C monthly.Tamsulosin HCl Oral : Capsule 0.4 mg, 1 capsule daily, at bedtime.Vitamin D2 Oral : Tablet 2000 unit, 1 tablet daily.Follow-up:Follow up with your doctor tomorrow. Call for an appointment. Reason for referral: evaluation andtreatment. Summary of care provided to patient and family.Understanding of the discharge instructions verbalized by patient. ADDITIONAL INFORMATIONPeripheral Artery Disease (PAD)Peripheral artery disease (PAD) occurs when the arteries that carry blood to the limbs are narrowedor blocked. This is usually due to a buildup of a fatty substance called plaque in the [place] of thearteries.PAD most often affects the arteries in the legs. When these arteries are narrowed or blocked, bloodflow to the legs is reduced. This can cause leg and foot pain and other symptoms. If severe enough,reduced blood flow to the legs can lead to tissue (gangrene) and the loss of a toe, foot, or leg.Having PAD also makes it more likely that arteries in other body areas are blocked. For instance,arteries that carry blood to the heart or brain may be affected. This raises the chances of heart attackand stroke.Risk factorsCertain factors can make PAD more likely. They include: Smoking Diabetes High blood pressure Unhealthy cholesterol levels Obesity Inactive lifestyle Older age Family history of PAD 3 General Instructions [facility] Emergency Department [address] [place] [address] Phone #: ext- [phone] 08/27/2020 16:42 [id number] Sex[facility] : 1950 Age: 70ySymptomsMany people with PAD have no symptoms. If symptoms do occur, they can include: Pain in the muscles of the calves, thighs, or hips that gets worse with activity and better with rest (intermittent claudication) Achy, tired, or heavy feeling in the legs Weakness, numbness, tingling, or loss of feeling in the legs Changes in skin color of the legs Sores on the legs and feet Cold leg, feet, or toes Pain the feet or toes even when lying down (rest pain)Home carePAD is a chronic (lifelong) condition. Treatment is focused on managing your condition and loweringyour health risks. This may include doing the following: If you smoke, quit. This helps prevent further damage to your arteries and lowers your health risks. Ask your provider about medicines or products that can help you quit smoking. Also consider joining a stop-smoking program or support group. Be more active. This helps you lose weight and manage problems such as high blood pressure and unhealthy cholesterol levels. Start a walking program if advised to by your provider. Your provider may also help you form a safe exercise program that is right for your needs. Make healthy eating changes. This includes eating less fat, salt, and sugar. Take medicines for high blood pressure, unhealthy cholesterol levels, and diabetes as directed. Have your blood pressure and cholesterol levels checked as often as directed. If you have diabetes, try to keep your blood sugar well controlled. Test your blood sugar as directed. If you are overweight, talk to your provider about a weight-loss plan. Watch for cuts, scrapes, or open sores on your feet. Poor blood flow to the feet may slow healing and increase the risk of infection from these problems. 4 General Instructions [facility] Emergency Department [address] [place] [address] Phone #: ext- [phone] 08/27/2020 16:42 [facility]: [id number] Sex: M : 1950 Age: 70yFollow-up careFollow up with your healthcare provider, or as advised. If imaging tests such as ultrasound weredone, they will be reviewed by a doctor. You will be told the results and any new findings that mayaffect your care.When to seek medical adviceCall your healthcare provider right away if any of these occur: Sudden severe pain in the legs or feet Sudden cold, pale or blue color in the legs or feet Weakness or numbness in the legs or feet that worsens Any sore or wound in the legs or feet that won't heal Weak pulse in your legs or feetKnow the signs of heart attack and strokePeople with PAD are a t high risk for heart attack and stroke. Knowing the signs of these problemscan help you protect your health and get help when you need it. Call 911 right away if you have anyof the following: Chest discomfort, such as pain, aching, tightness, or pressure that lasts more than a few minutes, or that comes and goes Pain or discomfort in the arms, back, shoulders, neck, or jaw Shortness of breath Sweating (often a cold, clammy sweat) Nausea Lightheadedness Sudden numbness or weakness of the face, arms, or legs, especially on one side Sudden confusion or trouble speaking or understanding Sudden trouble seeing in one or both eyes Sudden trouble walking, dizziness, or loss of balance Sudden, severe headache with no known cause 5 General Instructions [facility] Emergency Department [address] [place] [address] Phone #: [phone] tdn- 2021 08/27/2020 16:42 Patient: YOVANI CASTILLO Sex: M : 1950 Age: 70y [phone] [employer]. [address] [place] [address]. All rights reserved. This information is not intended as asubstitute for professional medical care. Always follow your healthcare professional's instructions.Chronic Kidney Disease (CKD)The role of the kidneys is to remove waste products and extra water from the blood. When thekidneys do not work as they should, waste products begin to build up in the blood. This is calledchronic kidney disease (CKD). CKD means that you have kidney damage or a decrease in kidneyfunction lasting at least 3 months. CKD allows extra water, waste, and toxins to build up in the body.This can eventually become life- threatening. You might need dialysis or a kidney transplant to stayalive. This most severe form is called end stage renal disease.Diabetes is the leading causes of chronic renal failure. Other causes include high blood pressure,hardening of the arteries (atherosclerosis), lupus, inflammation of the blood vessels (vasculitis), andpast viral or bacterial infections. Certain hlcu-kgn-ibxfzfl pain medicines can cause renal failurewhen taken often over a long period of time. These include aspirin, ibuprofen, and relatedanti-in flammatory medicines called NSAIDs (nonsteroidal anti-inflammatory drugs).Home careThe following guidelines will help you care for yourself at home: If you have diabetes, talk with your healthcare provider about keeping your blood sugar under control. Ask if you need to make and changes to your diet, lifestyle, or medicines. If you have high blood pressure: o Take prescribed medicine to lower your blood pressure to the recommended goal of less than 130/80. o Start a regular exercise program that you enjoy. Check with your healthcare provider to be sure your planned exercise program is right for you. o Eat less salt (sodium). Your healthcare provider can tell you how much salt per day is safe for you. If you are overweight, talk with your healthcare provider about a weight loss plan. If you smoke, you must quit. Smoking makes kidney disease worse. Talk with your healthcare provider about ways to help you quit. For more information, visit the following links: o www.smokefree.gov/sites/default/files/pdf/qliwselw-ujv-olc-accessible.pdf o www.smokefree.gov o www.cancer.org/healthy/stayawayfromtobacco/guidetoquittingsmoking/ Most people with CKD need to follow a special diet. Be sure you understand yours. In 6 General Instructions [facility] Emergency Department [address] [place] [address] Phone #: ext- [phone] 08/27/2020 16:42 Patient: YOVANI CASTILLO Sex: M : 1950 Age: 70y general, you will need to limit protein, salt, potassium, and phosphorus. You also need to limit how much fluid you drink. CKD is a risk factor for heart disease. Talk with your healthcare provider about any other risk factors you might have and what you can do to lessen them. Talk with your healthcare provider about any medicines you are taking to find out if they need to be reduced or stopped. Don't use the following ckgq-owd-bkdqirn medicines, or consult your healthcare provider before using: o Aspirin and NSAIDs such as ibuprofen or naproxen. Using acetaminophen for fever or pain is OK. o Laxatives and antacids containing magnesium or aluminum o Fleet or phospho soda enemas containing phosphorus o Certain stomach acid-blocking medicine such as cimetidine or ranitidine o Decongestants containing pseudoephedrine o Herbal supp lementsFollow-up careFollow up with your healthcare provider, or as advised. Contact one of the following for moreinformation: [employer] 800-030-2244 www.aakp.org National Kidney Foundation 777-387-9173 www.kidney.org [employer] 930-947-6480 www.kidneyfund.org National Kidney Disease Education Program 866-4KIDNEY www.nkdep.nih.govIf an X-ray, ECG (cardiogram), or other diagnostic test was taken, you will be told of any new findingsthat may affect your care.Call [phone] if you have any of the following: Severe weakness, dizziness, fainting, drowsiness, or confusion Chest pain or shortness of breath 7 General Instructions [facility] Emergency Department [address] [place] [address] Phone #: pdr- [phone] 08/27/2020 16:42 Patient: YOVANI CASTILLO Sex: M : 1950 Age: 70y Heart beating fast, slow, or irregularlyWhen to seek medical adviceCall your healthcare provider right away if any of these occur: Nausea or vomiting Fever of 100.4F (38C) or higher, or as directed by your healthcare provider Unexpected weight gain or swelling in the legs, ankles, or around the eyes Decrease or absent urine output [phone] [employer]. [address] [facility], [place] [address]. All rights reserved. This information is not intended as asubstitute for professional medical care. Always follow your healthcare professional's instructions. You have been given the following additional information: Peripheral Artery Disease (PAD) Chronic Kidney Disease (CKD)(Electronically signed by YENNIFER Hightower 08/28/2020 06:23) Name Value Range Interpretation Code Description Data Esthela rce(s) Supporting Document(s) ID Date Data Source [id number] 08/27/2020 04:44:00 PM EST [facility] 1 Clinical Report - Nurses [facility] Emergency Department [address] [place] [address] Phone #: ext- [phone] 08/27/2020 16:42 Patient: YOVANI CASTILLO Sex: M : 1950 Age: 70yTRIAGEArrived by private vehicle. Historian: patient and family. Accompanied by family. ( presents with wifewith c/o awakening this am with some R foot swelling and pain, dialysis pt, had it yesterday.).Triage time: 16:42 08/27/2020. Acuity: LEVEL 3.Chief Complaint: Location of symptoms- right foot .Alert. No acute distress.No injury occurred. This started today. Provoking / relieving factors: worsened by movement and walkingand not worsened by lying down. 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 (few hours ago).SEPSIS SCREEN: SIRS Screen negative. Sepsis Screen negative. No suspected or confirmed signs ofinfection present. --16:52 08/27/20 Liya Walter, RN16:42 08/27/20. BP: 122/50. MAP: 74. HR: 58. RR: 18. O2 saturation: 99%. Temp: 98.4 F. Pain level now:07/04. --16:52 08/27/20 Liya Walter RN.Weight: 78.9 kg stated. Height/Length: 69 inches Per Patient. BMI: 25.7. --16:50 08/27/20 Liya Walter RN.MedicationsAdvair Diskus Inhalation 230-21 mcg/act, 2x a day. Albuterol Sulfate Inhalation (Nebulization Solution (2.5 MG/3ML) 0.083%), 2x a day. Butrans Transdermal (Patch Weekly 20 mcg/hr) 1 patch, once a week. Calcitriol Oral (Capsule 0.25 mcg) 1 capsule, daily. Ferrous Sulfate Oral (Tablet 325 (65 Fe) mg) 1 tablet, daily. Flonase Allergy Relief Nasal (Suspension 50 mcg/act) 1 spray each nostril, daily. Glucagon Emergency Injection, as needed. Lantus SoloStar Subcutaneous, 2x a day (8 units in AM, 5 units in PM). Lipitor Oral 40 mg, daily. MiraLax Oral 17 gm, daily. NovoLOG Subcutaneous, 3x a day (7units/5units/7 units). Procrit Injection (Solution 85138 unit/mL) 1 ml S/C, monthly. Tamsulosin HCl Oral (Capsule 0.4 mg) 1 capsule, daily at bedtime. Vitamin D2 Oral (Tablet 2000 unit) 1 tablet, daily. --16:49 08/27/20 Liya Walter RN Gabapentin Oral 100 mg, daily. --16:49 08/27/20 Liya Walter RN Aspirin Oral (Tablet Chewable 81 mg), daily. --16:49 08/27/20 Liya Walter RN Coumadin Oral 10 mg, daily. --16:50 08/27/20 Liya Walter RN. 2 Clinical Report - Nurses [facility] Emergency Department [address] [place] [address] Phone #: ext- [phone] 08/27/2020 16:42 [id number] Sex: [facility] : 1950 Age: 70yAllergiesActos. (edema)capsacin. ("excessive burning") --16:47 08/27/20 Liya Walter RNCrestor. (headache)Dapsone. (anemia)Demerol.(itching)Dilantin.(Anaphylaxis)Gabapentin.Glucaphage.(rash)Latex .Levaquin. (headache)Lisinopril.(rash)Lyrica.Penicil hayley.(itching)Phenabarbitol.(Anaphylaxis)Requip. (elevated liver enzymes )Tegratol.(Anaphylaxis)Triple antibiotic ointment. (neosporin; facial swelling) --16:47 08/27/20 Liya Walter RN.PROBLEMS:DVT - Deep Venous Thrombosis.Anemia.Depression.COPD - Chronic Obstructive Pulmonary Disease.Renal Insufficiency.Sleep Apnea.Sinusitis.Neuropathy.Hypertension.Heart Disease.Lung Disease.Kidney failure: (Stage 4). --16:47 08/27/20 Liya Walter RN.Medication/allergy information source: the patient's family and previous visit record. --16:52 08/27/20Liya Walter RN.ADDITIONAL SURGERIES:Neck Surgery.Renal fistula placed right arm [11/01/2018].Stents in heart. --16:50 08/27/20 Liya Walter RN.HistorySOCIAL HX: Former smoker. No alcohol use or drug use. He was offered HIV testing but declined andhepatitis C testing but declined. He has not traveled outside the [place] 3 Clinical Report - Nurses [facility] Emergency Department [address] [place] [address] Phone #: ext- [phone] 08/27/2020 16:42 Patient: YOVANI CASTILLO Sex: M : 1950 Age: 70y Infectious disease exposure: No infectious disease exposure. SELF HARM ASSESSMENT: Self harm assessment was performed. The patient answered "no" to the question(s) "Have you recently felt down, depressed, or hopeless?". ABUSE ASSESSMENT: No report of abuse. NUTRITIONAL RISK ASSESSMENT: The nutritional risk assessment revealed no deficiencies. FUNCTIONAL ASSESSMENT: Functional assessment: no impairments noted. LEARNING NEEDS ASSESSMENT: The learning needs assessment revealed no barriers. FALL RISK ASSESSMENT: Fall risk assessment completed. Risk factors identified include patient medications, age greater than 65 years, diagnosis of alzheimer's and impairment of mobility and cognition. Fall interventions initiated. Patient placed on stretcher. Side rails up x2. Bed in low position. Brakes on. Family at bedside. Call light in reach of patient. SKIN INTEGRITY ASSESSMENT: Skin integrity risk assessment completed. No skin integrity risk identified. --16:52 08/27/20 Liya Walter RN.PHYSICAL ASSESSMENTA mbulatory to room.GENERAL / NEURO / PSYCH: Oriented X 4. Alert. Appears in pain.CVS: Pulses: right dorsalis pedis 2+; left dorsalis pedis 2+.EXTREMITIES: Increased warmth with tenderness to right leg, right ankle and right foot. Constant andincreased with dorsiflexion right-sided calf tenderness. 3+ edema of the right lower extremity involving thefoot, ankle and lower leg; 1+ edema of the left lower extremity involving the foot and ankle. Right leg:tenderness, swelling and erythema. Right ankle: tenderness, swelling and erythema. Right foot:tenderness, swelling and erythema.SKIN: Skin is warm and dry. He has an abrasion on the right arm. ( R arm fistula). --17:10 08/27/20Ernestina Tran REricNURSING PROGRESS NOTESPatient gowned. Reassurance given. Two patient identifiers checked. Bed placed in lowest position.Brakes of bed on. Patient ready for evaluation. --16:52 08/27/20 Liya Walter RN 17:16 08/27/2020 VICODIN (5-325MG) (Acetaminophen-HYDROcodone) PO Tablets 1 tab given. Allergies verified and confirmed 5 rights. Information reviewed with patient including reason for taking this medication and sedative warning. Verbalizes understanding. --17:16 08/27/20 Ernestina Tran REric 17:41 08/27/2020 Site #1 started via IV in the left antecubital space with an 20g angiocath, with aseptic technique and good blood return; one attempt. Blood drawn: rainbow set and green tube(s). Labeled in the presence of the patient and sent to the lab. Saline lock flushed with 10 mL saline. --17:41 08/27/20 Esperanza Tran Clinical Report - Nurses [facility] Emergency Department [address] [place] [address] Phone #: ext- [phone] 08/27/2020 16:42 Patient: YOVANI CASTILLO Sex: M : 1950 Age: 70y Abby Do 16 fr in/out catheterization. During procedure hand hygiene observed and sterile equipment and aseptic technique used. Return of less than 50 mL yellow- colored clear urine; odor is normal. He tolerated procedure well. --17:42 08/27/20 Ernestina Tran R.N. EKG time: (late entry - 17:25 08/27/2020). EKG was performed by a nurse and shown to the PA. --17:44 08/27/20 Ernestina Tran R.N. Critical value relayed by lab. Critical value received by liya. Troponin: .11. Creatinine: 6.6. Critical value read back. Verified lab result and patient ID. PA notifed of critical value. Orders were not received. --17:52 08/27/20 Liya Walter, ETIENNE 19:37 08/27/20. BP: 93/68. MAP: 76. HR: 134. RR: 23. O2 saturation: 96% on room air. --19:38 08/27/20 Ernestina Tran R.N. Charted on wrong patient. --19:38 08/27/20 Ernestina Tran R.N. ( Provider WS on phone with [facility] regarding possible transfer.). --20:12 08/27/20 Elizabeth Ospina R.N. late entry - 17:42 08/27/20. Urinary catheter placed in ED. --20:57 08/27/20 Ernestina Tran R.N. 18:55 08/27/2020 Morphine IVP 2 mg given over 3 minute(s) via site #1. Allergies verified and confirmed 5 rights. IV patency established. IV site checked: no pain, redness, or swelling. IV flushed thoroughly pre- and post-medication administration. IVP given by RN. Information reviewed with patient and spouse including sedative warning. Verbalizes understanding (diluted in 10 cc ns). --18:55 08/27/20 Ernestina Tran R.N. 19:55 08/27/20. Urinary catheter removed. --20:56 08/27/20 Ernestina Tran R.N. 20:23 08/27/2020 VICODIN (5-325MG) (Acetaminophen-HYDROcodone) PO Tablets 1 tab given. Allergies verified and confirmed 5 rights. Information reviewed with patient including reason for taking this medication and sedative warning. Verbalizes understanding. --20:23 08/27/20 Ernestina Tran R.N.DISPOSITION / DISCHARGE 20:51 08/27/2020 Site #1 removed upon discharge. Catheter intact. Manual pressure and bandage applied. --20:51 08/27/20 Ernestina Tran R.N. Condition at departure: improved. No learning barriers present. Discharge instructions provided and reviewed with the patient and spouse. ( follow up with dialysis tomorrow). The patient was discharged by the physician accounting assistant. He was discharged home and accompanied by spouse. He left ambulatory and via private vehicle. Spouse driving. --20:54 08/27/20 Ernestina Tran R.N. 20:50 08/27/20. BP: 127/67. MAP: 87. HR: 62. RR: 20. O2 saturation: 100%. Temp: 98.8 F. Pain level now: 04/03. --20:54 08/27/20 Ernestina Tran R.N. 5 Clinical Report - Nurses [facility] Emergency Department [address] [place] [address] Phone #: ext- [phone] 08/27/2020 16:42 Patient: YOVANI CASTILLO Sex: M : 1950 Age: 70 yLocked/Released at 08/27/2020 20:57 by Ernestina Tran R.N. Name Value Range Interpretation Code Description Data Esthela rce(s) Supporting Document(s) ID Date Data Source [id number] 08/27/2020 04:44:00 PM EST [facility] 1 Clinical Report - Physicians/Mid Levels [facility] Emergency Department [address] [place] [address] Phone #: ext- [phone] 08/27/2020 16:42 Patient: YOVANI CASTILLO Sex: M : 1950 Age: 70y Time Seen: 16:52 08/27/2020. Arrived- By private vehicle. Historian- patient.HISTORY OF PRESENT ILLNESS Chief Complaint: LOWER EXTREMITY PAIN and SWELLING and ; ;(R foot pain, swelling, atraumatic.). (Pt states he awoke this am with atraumatic RLE, (leg, ankle and foot) swelling and pain, has CKD, had dialysis in [place] yesterday, hx of prior DVT, on coumadin. Denies SOB, chest pain, other constitutional symptoms.). Severity is described as being moderate. The quality is noted to be aching. Not relieved by anything- worsened by standing and walking. Relieved by lying down and remaining still. Symptoms located in the area of the right ankle, right leg and right foot. The patient has had swelling, but not had redness. He has had difficulty walking. No bladder dysfunction, bowel dysfunction, sensory loss or motor loss. Patient d enies an injury. Similar symptoms previously. Patient has had similar symptoms once. Recent medical care: The patient was seen recently at another facility in a clinic.REVIEW OF SYSTEMS No cough, chest pain, difficulty breathing, fever or skin rash. No enlarged lymph nodes, neck pain, back pain, headache or blurred vision. No sore throat, abdominal pain, vomiting, diarrhea or black stools. No difficulty with urination or bloody stools.PAST HISTORY See nurses notes. Problems: DVT. Elevated Cholesterol. GI Disease. Diabetes Mellitus. Asthma. Other Disease. DVT - Deep Venous Thrombosis. Anemia. Depression. COPD - Chronic Obstructive Pulmonary Disease. Renal Insufficiency. Sleep Apnea. Sinusitis. Neuropathy. 2 Clinical Report - Physicians/Mid Levels [facility] Emergency Department [address] [place] [address] Phone #: ext- [phone] 08/27/2020 16:42 [id number] Sex: M D OB: 1950 Age: 70yHypertension.Heart Disease.Lung Disease.Kidney failure.Additional Surgeries:Neck Surgery.Renal fistula placed right arm [11/01/2018].Stents in heart.Medications:Coumadin Oral 10 mg, daily.Aspirin Oral (Tablet Chewable 81 mg), daily.Gabapentin Oral 100 mg, daily.Advair Diskus Inhalation 230-21 mcg/act, 2x a day.Albuterol Sulfate Inhalation (Nebulization Solution (2.5 MG/3ML) 0.083%), 2x a day.Butrans Transdermal (Patch Weekly 20 mcg/hr) 1 patch, once a week.Calcitriol Oral (Capsule 0.25 mcg) 1 capsule, daily.Ferrous Sulfate Oral (Tablet 325 (65 Fe) mg) 1 tablet, daily.Flonase All ergy Relief Nasal (Suspension 50 mcg/act) 1 spray each nostril, daily.Glucagon Emergency Injection, as needed.Lantus SoloStar Subcutaneous, 2x a day (8 units in AM, 5 units in PM).Lipitor Oral 40 mg, daily.MiraLax Oral 17 gm, daily.NovoLOG Subcutaneous, 3x a day (7units/5units/7 units).Procrit Injection (Solution 36839 unit/mL) 1 ml S/C, monthly.Tamsulosin HCl Oral (Capsule 0.4 mg) 1 capsule, daily at bedtime.Vitamin D2 Oral (Tablet 2000 unit) 1 tablet, daily.Allergies:Actos. (edema)capsacin. ("excessive burning")Crestor. (headache)Dapsone. (anemia)Demerol.(itching)Dilantin.(Anaphylaxis)Ga bapentin.Glucaphage.(rash)Latex.Levaquin. (headache)Lisinopril.(rash)Lyrica.Penicillins.(itching)Phenabarbitol.(Anaphylaxi s)Requip. (elevated liver enzymes ) 3 Clinical Report - Physicians/Mid Levels [facility] Emergency Department [address] [place] [address] Phone #: ext- [phone] 08/27/2020 16:42 Patient: YOVANI CASTILLO Sex: M : 1950 Age: 70y Tegratol.(Anaphylaxis) Triple antibiotic ointment. (neosporin; facial swelling).SOCIAL HISTORY Former smoker. No alcohol use or drug use. No recent travel.ADDITIONAL NOTES The nursing notes have been reviewed with agreement regarding the chief complaint, HPI, ROS, PMH and patient medications and allergies.PHYSICAL EXAM Vital Signs: 08/27/2020 16:42 BP: 122/50. MAP: 74. HR: 58. RR: 18. O2 saturation: 99%. Temp: 98.4 F. Pain level now: 07/04. Have been reviewed as abnormal and appear to be correct. Hypotensive. Mean arterial pressure- low. Bradycardic. Respiratory rate normal. Temperature normal. Oxygen saturation normal. Appearance: Alert. No acute distress. Appears to be in pain. Patient in moderate distress. Distress appears due to pain. Eyes: Pupils equal, round and reactive to light. Eyes normal inspection. ENT: Ears normal. Nose normal. Pharynx normal. Neck: Normal inspection. Neck supple. CVS: Normal heart rate and rhythm. Heart sounds normal. Respiratory: No respiratory distress. Painless inspiration. Breath sounds normal. Abdomen: Soft and nontender. No organomegaly. Back: Normal inspection. No tenderness. ROM normal. Skin: Skin intact. Skin warm and dry. Normal skin color. Normal skin turgor. Extremities: Right leg: moderate tenderness and swelling located in the anterior, posterior, medial and lateral aspect of mid and lower leg. Neurovascular intact distally. No erythema or ecchymosis. Right ankle: moderate tenderness and swelling localized to the anterior ankle, lateral malleolus and medial malleolus. Neurovascular intact distally. No erythema. Right foot: severe tenderness and moderate swelling located in the proximal and distal dorsal and plantar medial and lateral aspect of the mid foot. Neurovascular intact distally. No erythema or ecchymosis. Moderate 2+ pitting edema of the right lower extremity. Extremities otherwise negative. Gait: Gait not tested due to pain. Neuro: Oriented X 3. No motor deficit. No sensory deficit. Reflexes normal.LABS, X-RAYS, AND EKG EKG: EKG time: 18:23 08/27/2020. No acute process. No acute ischemia. Rate: 55. Narrow-complex bradycardia. Sinus bradycardia. RBBB (incomplete). Left axis deviation. sinus bradycardia, LAE, LAD, incomplete RBB, ? anterior infarct of indeterminate age, T wave abnormality consider lateral i schemia. Changes present when compared to prior EKG. (sinus rhythm at 89 BPM with LAD, incomplete RBB, no other significant changes 01.30.19). The study has been interpreted contemporaneously by me. The study has been independently viewed by me. The EKG appears to be a good tracing. I agree with and confirm the computer reading of the EKG. Interpretation time: 18:23 08/27/2020. Chest X- ray: No acute disease. Normal lung markings present. Views: AP (portable). Technique: 4 Clinical Report - Physicians/Mid Levels [facility] Emergency Department [address] [place] [address] Phone #: ext- [phone] 08/27/2020 16:42 [id number] Sex[facility] M : 1950 Age: 70ygood. The X-rays were independently viewed by me and interpreted contemporaneously by me.Interpretation time: 18:42 08/27/2020.Rt Tib/Fib X-ray: (NAD, old fx tib/fib). Views: AP and lateral. Technique: good. The X-rays wereindependently viewed by me and interpreted by the radiologist and contemporaneously by me.Interpretation time: 18:43 08/27/2020.Rt Ankle X-ray: (NAD). Views: AP, lateral and mortise. Technique: good. The X-rays wereindependently viewed by me and interpreted by the radiologist and contemporaneously by me.Interpretation time: 18:43 08/27/2020.Rt Foot X-ray: (NAd, hallux valgus with DJD). Views: 3 view foot series, AP, lateral and oblique.Technique: good. The X-rays were independently viewed by me and interpreted by the radiologist andcontemporaneously by me. Interpretation time: 18:43 08/27/2020.Lower Extremity Sonography: Negative exam on the right and left side. No evidence of DVT. Studytype: utilized duplex sonography. The exam was performed by a csr technician. The study wasindependently viewed by me and interpreted by the radiologist and contemporaneously by me.Interpretation time: 18:13 08/27/2020.Laboratory Tests: Laboratory tests have been ordered, with results reviewed and considered in themedical decision making process.CBC w Diff: (CELESTINO: 08/27/2020 17:00) ( MsgRcvd 08/27/2020 17:31) Final results Test Result Flag Units (Reference) CBC W/AUTOMATED DIFF COMPLETE BLOOD COUNT WBC 8.8 10/uL (4.2 - 11.0) RBC 3.11 L 10/uL (4.50 - 6.30) HEMOGLOBIN 10.4 L g/dL (14.0 - 16.0) HEMATOCRIT 30.9 L % (41.0 - 51.0) MCV 99.4 H fL (80.0 - 94.0) MCH 33.4 pg (27.0 - 34.0) MCHC 33.7 g/dL (31.0 - 36.0) RDW 15.7 H % (11.5 - 14.8) PLATELETS 217 10/uL (150 - 450) MPV 9.0 fL (7.4 - 10.4) NEUT 72.2 % (37.0 - 80.0) LYMPH 14.1 L % (25.0 - 40.0) MONO 11.0 H % (3.0 - 8.0) EOS 1.8 % (0.0 - 7.0) BASO 0.6 % (0.0 - 2.0) %IG 0.3 H % (0.0 - 0.0) %NRBC 0.0 % (0.0 - 0.0) #NEUT 6.36 10/uL (2.00 - 6.90) #LYMPH 1.24 10/uL (0.60 - 3.40) #MONO 0.97 H 10/uL (0.00 - 0.90) #EOS 0.16 10/uL (0.00 - 0.70) #BASO 0.05 10/uL (0.00 - 0.20) #IG 0.03 10/uL (0.00 - 0.10) #NRBC 0.00 10/uL (0.00 - 0.00) MANUAL DIFF NOT INDICATED RBC MORPH NOT INDICATEDCMP: (CELESTINO: 08/27/2020 17:00) ( MsgRcvd 08/27/2020 17:48) Final results Test Result Flag Units (Reference) COMPREHENSIVE METABOLIC PANEL COMPREHENSIVE METABOLIC PANEL 5 Clinical Report - Physicians/Mid Levels [facility] Emergency Department [address] [place] [address] Phone #: ext- [phone] 08/27/2020 16:42 Patient: YOVANI CASTILLO Sex: M : 1950 Age: 70y SODIUM 134 mEq/L (134 - 153) POTASSIUM 5.0 mEq/L (3.6 - 5.0) CHLORIDE 93 L mEq/L (98 - 107) CO2 29 MEQ/L (22 - 30) GLUCOSE 119 H MG/DL (65 - 110) BUN 59 H MG/DL (7 - 21) CREATININE 6.6 HH MG/DL (0.7 - 1.5) CALL/ READ BACK LIYA IN ED BY: DANIELLE DATE/TIME /1747 BUN/CREAT 9 (8 - 27) TOTAL PROTEIN 6.7 G/DL (6.3 - 8.2) ALBUMIN 4.2 G/DL (3.9 - 5.0) GLOBULIN 2.5 GM/DL (2.4 - 3.2) A/G RATIO 1.7 (0.8 - 2.0) CALCIUM 9.2 MG/DL (8.4 - 10.2) TOTAL BILI <0.7 MG/DL (0.2 - 1.3) ALKALINE PHOS 89 U/L (38 - 126) SGOT/AST 22 U/L (5 - 40) SGPT/ALT 22 U/L (7 - 56) ANION GAP 12.0 mmol/L (8.0 - 16.0) AGE 70 yrs NON-AA GFR 9 mL/min AFR AMER GFR 11 mL/min Male GFR Interprentation 20-49 yrs >60 mL/min Fvsmeb91-03 yrs >56 mL/min Normal 60-69 yrs >49 mL/min Normal 70-79yrs>42 mL/min Normal 80 and above >35 mL/min Normal Female GFRInterpretation 20-39 yrs >60 mL/min Normal 40-49 yrs >58 mL/minNormal 50-59 yrs >51 mL/min Normal 60-69 yrs >45 mL/min Pbrrms99-26 yrs >39 mL/min Normal 80 and above >32 mL/min NormalLactic Acid: (CELESTINO: 08/27/2020 17:00) ( MsgRcvd 08/27/2020 17:26) Final results Test Result Flag Units (Reference) LACTIC ACID 1.9 MMOL/L (0.2 - 2.2)PT/PTT: (CELESTINO: 08/27/2020 17:00) ( [facility] 08/27/2020 17:42) Final re sults Test Result Flag Units (Reference) PROTIME 37.6 H SECONDS (11.0 - 15.5) INR 3.74 H (0.93 - 1.23) PTT 45.2 H SECONDS (24.8 - 36.7) \\BLDo\\INR INTERPRETATION\\BLDx\\ Therapeutic range for Coumadin andrelated oral anticoagulants. -International Normalized Ratio (INR): 2.0 - 3.0 for VenousThrombosis, Pulmonary Embolus, Tissue heart valves, Acute IA Atrial Fibrillation, Valvular heart diseaseand recurrent Systemic Embolism. -International Normalized Ratio (INR): 2.5 - 3.5 forMechanical Prosthetic valve.Troponin-T: (CELESTINO: 08/27/2020 17:00) ( [facility] 08/27/2020 17:49) Final results Test Result Flag Units (Reference) TROPONIN T 0.11 HH NG/ML (0.00 - 0.10) CALL/ READ BACK LIYA IN ED BY: DANIELLE DATE/TIME [id number] TROPONIN T0.1 ng/ml Recommended as the clinical threshold value forTroponin T.Urinalysis: (CELESTINO: 08/27/2020 17:37) ( [facility] 08/27/2020 17:56) Final results 6 Clinical Report - Physicians/Mid Levels [facility] Emergency Department [address] [place] [address] Phone #: ext- [phone] 08/27/2020 16:42 Patient: YOVANI CASTILLO Sex: M : 1950 Age: 70y Test Result Flag Units (Reference) URINALYSIS URINALYSIS SOURCE Cath Spec COLOR yellow (NORMAL: Yello CLARITY clear (NORMAL: Clear SPEC GRAVITY 1.010 (1.001 - 1.030 pH 7 (5 - 9) GLUCOSE 250 A (NORMAL: Negat BILIRUBIN NEG (NORMAL: Negat KETONE NEG (NORMAL: Negat PROTEIN 500 A (NORMAL: Negat NITRITE NEG (NORMAL: Negat BLOOD 50 A (NORMAL: Negat LEUK EST 25 (NORMAL: Negat UROBILINOGEN NOR (less than 1.0 MICROSCOPIC See Below WBC 3 - 5 (NORMAL: NONE RBC 3 - 5 (NORMAL: NONE EPITHELIAL FEW (NORMAL: NONE MUCOUS Trace (NORMAL: NONE . ABG: On FIO2- room air.PROGRESS AND PROCEDURES Course of Care: 19:04 Aug 27 2020. Case discussed and ED care transferred. Assumed care. Brief hx: atraumatic RLE pain and swelling. Pending items: lab. Tentative impression: ? vascular occlusion, cellulitis, renal failure, elevated troponin,. Expected disposition: transfer. (YENNIFER Greco).(Electronically signed by YENNIFER Patiño 08/27/2020 19:05) Time Seen: 16:52 08/27/2020. Arrived- By private vehicle. Historian- holden alicea.HISTORY OF PRESENT ILLNESS Chief Complaint: LOWER EXTREMITY PAIN and SWELLING and ; ;(R foot pain, swelling, atraumatic.). Severity is described as being moderate. The quality is noted to be aching. (Pt states he awoke this am with atraumatic RLE, (leg, ankle and foot) swelling and pain, has CKD, had dialysis in [place] yesterday, hx of prior DVT, on coumadin. Denies SOB, chest pain, other constitutional symptoms.). Not 7 Clinical Report - Physicians/Mid Levels [facility] Emergency Department [address] [place] [address] Phone #: ext- [phone] 08/27/2020 16:42 Patient: YOVANI CASTILLO Sex: M : 1950 Age: 70y relieved by anything- worsened by standing and walking. Relieved by lying down and remaining still. Symptoms located in the area of the right ankle, right leg and right foot. The patient has had swelling, but not had redness. He has had difficulty walking. No bladder dysfunction, bowel dysfunction, sensory loss or motor loss. Patient denies an injury. Similar symptoms previously. Patient has had similar symptoms once. Recent medical care: The patient was seen recently at another facility in a clinic.REVIEW OF SYSTEMS No cough, chest pain, difficulty breathing, fever or skin rash. No enlarged lymph nodes, neck pain, back pain, headache or blurred vision. No sore throat, abdominal pain, vomiting, diarrhea or black stools. No difficulty with urination or bloody stools.PAST HISTORY See nurses notes. Problems: DVT. Elevated Cholesterol. GI Disease. Diabetes Mellitus. Asthma. Other Disease. DVT - Deep Venous Thrombosis. Anemia. Depression. COPD - Chronic Obstructive Pulmonary Disease. Renal Insufficiency. Sleep Apnea. Sinusitis. Neuropathy. Hypertension. Heart Disease. Lung Disease. Kidney failure. Additional Surgeries: Neck Surgery. Renal fistula placed right arm [11/01/2018]. Stents in heart. Medications: 8 Clinical Report - Physicians/Mid Levels [facility] Emergency Department [address] [place] [address] Phone #: ext- [phone] 08/27/2020 16:42 Patient: YOVANI CASTILLO Sex: M : 1950 Age: 70y Coumadin Oral 10 mg, daily. Aspirin Oral (Tablet Chewable 81 mg), daily. Gabapentin Oral 100 mg, daily. Advair Diskus Inhalation 230-21 mcg/act, 2x a day. Albuterol Sulfate Inhalation (Nebulization Solution (2.5 MG/3ML) 0.083%), 2x a day. Butrans Transdermal (Patch Weekly 20 mcg/hr) 1 patch, once a week. Calcitriol Oral (Capsule 0.25 mcg) 1 capsule, daily. Ferrous Sulfate Oral (Tablet 325 (65 Fe) mg) 1 tablet, daily. Flonase Allergy Relief Nasal (Suspension 50 mcg/act) 1 spray each nostril, daily. Glucagon Emergency Injection, as needed. Lantus SoloStar Subcutaneous, 2x a day (8 units in AM, 5 units in PM). Lipitor Oral 40 mg, daily. MiraLax Oral 17 gm, daily. NovoLOG Subcutaneous, 3x a day (7units/5units/7 units). Procrit Injection (Solution 83617 unit/mL) 1 ml S/C, monthly. Tamsulosin HCl Oral (Capsule 0.4 mg) 1 capsule, daily at bedtime. Vitamin D2 Oral (Tablet 2000 unit) 1 tablet, daily. Allergies: Actos. (edema) capsacin. ("excessive burning") Crestor. (headache) Dapsone. (anemia) Demerol.(itching) Dilantin.(Anaphylaxis) Gabapentin. Glucaphage.(rash) Latex. Levaquin. (headache) Lisinopril.(rash) Lyrica. Penicillins.(itching) Phenabarbitol.(Anaphylaxis) Requip. (elevated liver enzymes ) Tegratol.(Anaphylaxis) Triple antibiotic ointment. (neosporin; facial swelling).SOCIAL HISTORY Former smoker. No alcohol use or drug use. No recent travel.ADDITIONAL NOTES The nursing notes have been reviewed with agreement regarding the chief complaint, HPI, ROS, PMH and patient medications and allergies.PHYSICAL EXAM 9 Clinical Report - Physicians/Mid Levels [facility] Emergency Department [address] [place] [address] Phone #: ext- [phone] 08/27/2020 16:42 Patient: YOVANI CASTILLO Sex: M : 1950 Age: 70y Vital Signs: 08/27/2020 16:42 BP: 122/50. MAP: 74. HR: 58. RR: 18. O2 saturation: 99%. Temp: 98.4 F. Pain level now: 07/04. Have been reviewed as abnormal and appear to be correct. Hypotensive. Mean arterial pressure- low. Bradycardic. Respiratory rate normal. Temperature normal. Oxygen saturation normal. Appearance: Alert. No acute distress. Appears to be in pain. Patient in moderate distress. Distress appears due to pain. Eyes: Pupils equal, round and reactive to light. Eyes normal inspection. ENT: Ears normal. Nose normal. Pharynx normal. Neck: Normal inspection. Neck supple. CVS: Normal heart rate and rhythm. Heart sounds normal. Respiratory: No respiratory distress. Painless inspiration. Breath sounds normal. Abdomen: Soft and nontender. No organomegaly. Back: Normal inspection. No tenderness. ROM normal. Skin: Skin intact. Skin warm and dry. Normal skin color. Normal skin turgor. Extremities: Right leg: moderate tenderness and swelling located in the anterior, posterior, medial and lateral aspect of mid and lower leg. Neurovascular intact distally. No erythema or ecchymosis. Right ankle: moderate tenderness and swelling localized to the anterior ankle, lateral malleolus and medial malleolus. Neurovascular intact distally. No erythema. Right foot: severe tenderness and moderate swelling located in the proximal and distal dorsal and plantar medial and lateral aspect of the mid foot. Neurovascular intact distally. No erythema or ecchymosis. Moderate 2+ pitting edema of the right lower extremity. Extremities otherwise negative. Gait: Gait not tested due to pain. Neuro: Oriented X 3. No motor deficit. No sensory deficit. Reflexes normal.LABS, X- RAYS, AND EKG EKG: EKG time: 18:23 08/27/2020. No acute process. No acute ischemia. Rate: 55. Narrow-complex bradycardia. Sinus bradycardia. RBBB (incomplete). Left axis deviation. sinus bradycardia, LAE, LAD, incomplete RBB, ? anterior infarct of indeterminate age, T wave abnormality consider lateral ischemia. Changes present when compared to prior EKG. (sinus rhythm at 89 BPM with LAD, incomplete RBB, no other significant changes 11.23.18). The study has been interpreted contemporaneously by me. The study has been independently viewed by me. The EKG appears to be a good tracing. I agree with and confirm the computer reading of the EKG. Interpretation time: 18:23 08/27/2020. Chest X- ray: No acute disease. Normal lung markings present. Views: AP (portable). Technique: good. The X-rays were independently viewed by me and interpreted contemporaneously by me. Interpretation time: 18:42 08/27/2020. Rt Tib/Fib X- ray: (NAD, old fx tib/fib). Views: AP and lateral. Technique: good. The X-rays were independently viewed by me and interpreted by the radiologist and contemporaneously by me. Interpretation time: 18:43 08/27/2020. Rt Ankle X-ray: (NAD). Views: AP, lateral and mortise. Technique: good. The X-rays were independently viewed by me and interpreted by the radiologist and contemporaneously by me. Interpretation time: 18:43 08/27/2020. Rt Foot X-ray: (NAd, hallux valgus with DJD). Views: 3 view foot series, AP, lateral and oblique. Technique: good. The X-rays were independently viewed by me and interpreted by the radiologist and contemporaneously by me. Interpretation time: 18:43 08/27/2020. 10 Clinical Report - Physicians/Mid Levels [facility] Emergency Department [address] [place] [address] Phone #: ext- [phone] 08/27/2020 16:42 Patient: YOVANI CASTILLO Sex: M : 1950 Age: 70yLower Extremity Sonography: Negative exam on the right and left side. No evidence of DVT. Studytype: utilized duplex sonography. The exam was performed by a csr technician. The study wasindependently viewed by me and interpreted by the radiologist and contemporaneously by me.Interpretation time: 18:13 08/27/2020.Laboratory Tests: Laboratory tests have been ordered, with results reviewed and considered in themedical decision making process.BNP: (CELESTINO: 08/27/2020 17:00) ( MsgRcvd 08/27/2020 19:38) Final results Test Result Flag Units (Reference) BNP 77712 H PG/ML (0 - 125)CBC w Diff: (CELESTINO: 08/27/2020 17:00) ( MsgRcvd 08/27/2020 17:31) Final results Test Result Flag Units (Reference) CBC W/ AUTOMATED DIFF COMPLETE BLOOD COUNT WBC 8.8 10/uL (4.2 - 11.0) RBC 3.11 L 10/uL (4.50 - 6.30) HEMOGLOBIN 10.4 L g/dL (14.0 - 16.0) HEMATOCRIT 30.9 L % (41.0 - 51.0) MCV 99.4 H fL (80.0 - 94.0) MCH 33.4 pg (27.0 - 34.0) MCHC 33.7 g/dL (31.0 - 36.0) RDW 15.7 H % (11.5 - 14.8) PLATELETS 217 10/uL (150 - 450) MPV 9.0 fL (7.4 - 10.4) NEUT 72.2 % (37.0 - 80.0) LYMPH 14.1 L % (25.0 - 40.0) MONO 11.0 H % (3.0 - 8.0) EOS 1.8 % (0.0 - 7.0) BASO 0.6 % (0.0 - 2.0) %IG 0.3 H % (0.0 - 0.0) %NRBC 0.0 % (0.0 - 0.0) #NEUT 6.36 10/uL (2.00 - 6.90) #LYMPH 1.24 10/uL (0.60 - 3.40) #MONO 0.97 H 10/uL (0.00 - 0.90) #EOS 0.16 10/uL (0.00 - 0.70) #BASO 0.05 10/uL (0.00 - 0.20) #IG 0.03 10/uL (0.00 - 0.10) #NRBC 0.00 10/uL (0.00 - 0.00) MANUAL DIFF NOT INDICATED RBC MORPH NOT INDICATEDCMP: (CELESTINO: 08/27/2020 17:00) ( MsgRcvd 08/27/2020 17:48) Final results Test Result Flag Units (Reference) COMPREHENSIVE METABOLIC PANEL COMPREHENSIVE METABOLIC PANEL SODIUM 134 mEq/L (134 - 153) POTASSIUM 5.0 mEq/L (3.6 - 5.0) CHLORIDE 93 L mEq/L (98 - 107) CO2 29 MEQ/L (22 - 30) GLUCOSE 119 H MG/DL (65 - 110) BUN 59 H MG/DL (7 - 21) CREATININE 6.6 HH MG/DL (0.7 - 1.5) CALL/ READ BACK LIYA IN ED BY: DANIELLE Higgins Clinical Report - Physicians/Mid Levels [facility] Emergency Department [address] [place] [address] Phone #: ext- [phone] 08/27/2020 16:42 Patient: YOVANI CASTILLO Sex: M : 1950 Age: 70y DATE/TIME [id number] BUN/CREAT 9 (8 - 27) TOTAL PROTEIN 6.7 G/DL (6.3 - 8.2) ALBUMIN 4.2 G/DL (3.9 - 5.0) GLOBULIN 2.5 GM/DL (2.4 - 3.2) A/G RATIO 1.7 (0.8 - 2.0) CALCIUM 9.2 MG/DL (8.4 - 10.2) TOTAL BILI <0.7 MG/DL (0.2 - 1.3) ALKALINE PHOS 89 U/L (38 - 126) SGOT/AST 22 U/L (5 - 40) SGPT/ALT 22 U/L (7 - 56) ANION GAP 12.0 mmol/L (8.0 - 16.0) AGE 70 yrs NON-AA GFR 9 mL/min AFR AMER GFR 11 mL/min Male GFR Interprentation 20-49 yrs >60 mL/min Rpibiy98-72 yrs >56 mL/min Normal 60-69 yrs >49 mL/min Normal 70-79yrs>42 mL/min Normal 80 and above > 35 mL/min Normal Female GFRInterpretation 20-39 yrs >60 mL/min Normal 40-49 yrs >58 mL/minNormal 50-59 yrs >51 mL/min Normal 60-69 yrs >45 mL/min Lhkxqx90-36 yrs >39 mL/min Normal 80 and above >32 mL/min NormalLactic Acid: (CELESTINO: 08/27/2020 17:00) ( MsgRcvd 08/27/2020 17:26) Final results Test Result Flag Units (Reference) LACTIC ACID 1.9 MMOL/L (0.2 - 2.2)PT/PTT: (CELESTINO: 08/27/2020 17:00) ( MsgRcvd 08/27/2020 17:42) Final results Test Result Flag Units (Reference) PROTIME 37.6 H SECONDS (11.0 - 15.5) INR 3.74 H (0.93 - 1.23) PTT 45.2 H SECONDS (24.8 - 36.7) \\BLDo\\INR INTERPRETATION\\BLDx\\ Therapeutic range for Coumadin andrelated oral anticoagulants. -International Normalized Ratio (INR): 2.0 - 3.0 for VenousThrombosis, Pulmonary Embolus, Tissue heart valves, Acute IA Atrial Fibrillation, Valvular heart diseaseand recurrent Systemic Embolism. -International Normalized Ratio (INR): 2.5 - 3.5 forMechanical Prosthetic valve.Troponin-T: (CELESTINO: 08/27/2020 17:00) ( MsgRcvd 08/27/2020 17:49) Final results Test Result Flag Units (Reference) TROPONIN T 0.11 HH NG/ML (0.00 - 0.10) CALL/ READ BACK LIYA IN ED BY: DANIELLE DATE/TIME [id number] TROPONIN T0.1 ng/ml Recommended as the clinical threshold value forTroponin T.Urinalysis: (CELESTINO: 08/27/2020 17:37) ( MsgRcvd 08/27/2020 17:56) Final results * *Test Result Flag Units (Reference) URINALYSIS URINALYSIS SOURCE Cath Spec COLOR yellow (NORMAL: Yello CLARITY clear (NORMAL: Clear SPEC GRAVITY 1.010 (1.001 - 1.030 pH 7 (5 - 9) 12 Clinical Report - Physicians/Mid Levels [facility] Emergency Department [address] [place] [address] Phone #: ext- [phone] 08/27/2020 16:42 Patient: YOVANI CASTILLO Sex: M : 1950 Age: 70y GLUCOSE 250 A (NORMAL: Negat BILIRUBIN NEG (NORMAL: Negat KETONE NEG (NORMAL: Negat PROTEIN 500 A (NORMAL: Negat NITRITE NEG (NORMAL: Negat BLOOD 50 A (NORMAL: Negat LEUK EST 25 (NORMAL: Negat UROBILINOGEN NOR (less than 1.0 MICROSCOPIC See Below WBC 3 - 5 (NORMAL: NONE RBC 3 - 5 (NORMAL: NONE EPITHELIAL FEW (NORMAL: NONE MUCOUS Trace (NORMAL: NONE US Lower Ext Venous Bilateral: (CELESTINO: 08/27/2020 17:08) ( MsgRcvd 08/27/2020 18:54) In Progress US DOPPLER VENOUS BILAT LEG Reason(s): RLE pain and swelling, hx prior DVt TRANSPORTATION: IV? O2? Oxygen?(No) Room: ED Foot Complete Right: (CELESTINO: 08/27/2020 17:08) ( MsgRcvd 08/27/2020 19:46) In Progress FOOT COMPLETE-3 OR MORE VW RT Reason(s): atraumatic foot, ankle, lower leg swelling and pain TRANSPORTATION: IV? O2? Oxygen?(No) Room: ED Ankle Complete Right: (CELESTINO: 08/27/2020 17:08) ( MsgRcvd 08/27/2020 19:46) In Progress ANKLE COMPLETE RT Reason(s): Trauma/Injury TRANSPORTATION: S IV? O2? Oxygen?(No) Room: ED Tibia Fibula AP And LAT Right: (CELESTINO: 08/27/2020 17:08) ( MsgRcvd 08/27/2020 19: 46) In Progress TIBIA-FIBULA AP Reason(s): atraumatic lower leg swellin and pain TRANSPORTATION: S IV? O2? Oxygen?(No) Room: ED Chest Portable 1 View: (CELESTINO: 08/27/2020 17:08) ( MsgRcvd 08/27/2020 19:46) In Progress CHEST PORTABLE Reason(s): RLE pain and swelling, atraumatic TRANSPORTATION: P IV? O2? Oxygen?(No) Room: ED . ABG: On FIO2- room air.PROGRESS AND PROCEDURES Course of Care: 20:13 Aug 27 2020. Evaluation after observation and returning to department. (Discussed pt wih Dr Rider at [facility] and he feels pt is safe to discharge home and have outpatient dialysis tomorrow as scheduled. Pt and family are agreeable with dx and tx plan.). Patient and spouse counseled in person regarding the patient's stable condition, test results, diagnosis and 13 Clinical Report - Physicians/Mid Levels [facility] Emergency Department [address] [place] [address] Phone #: ext- [phone] 08/27/2020 16:42 Patient: YOVANI CASTILLO Sex: M : [birth year] Age: 70y need for follow-up. Patient and spouse agrees with plan of care. 20:15 Aug 27 2020. Disposition: Discharged home in good and improved condition (20:15 Aug 27 2020).CLINICAL IMPRESSION Claudication of the right lower extremity with atherosclerosis of the [place] arteries in the right lower extremity. Severe chronic renal failure- end stage disease.INSTRUCTIONS (Follow up with Dialysis tomorrow as scheduled.). Your Current Medications: Your current home medications have been reviewed. CONTINUE TAKING THE FOLLOWING MEDICATIONS: Advair Diskus Inhalation : 230-21 mcg/act 2x a day. Albuterol Sulfate Inhalation : Nebulization Solution (2.5 MG/3ML) 0.083%, 2x a day. Aspirin Oral : Tablet Chewable 81 mg, daily. Butrans Transdermal : Patch Weekly 20 mcg/hr, 1 patch once a week. Calcitriol Oral : Capsule 0.25 mcg, 1 capsule daily. Coumadin Oral : 10 mg daily. Ferrous Sulfate Oral : Tablet 325 (65 Fe) mg, 1 tablet daily. Flonase Allergy Relief Nasal : Suspension 50 mcg/act, 1 spray each nostril daily. Gabapentin Oral : 100 mg daily. Glucagon Emergency Injection : prn. Lantus SoloStar Subcutaneous : 2x a day, 8 units in AM, 5 units in PM. Lipitor Oral : 40 mg daily. MiraLax Oral : 17 gm daily. NovoLOG Subcutaneous : 3x a day, 7units/5units/7 units. Procrit Injection : Solution 18840 unit/mL, 1 ml S/C monthly. Tamsulosin HCl Oral : Capsule 0.4 mg, 1 capsule daily, at bedtime. Vitamin D2 Oral : Tablet 2000 unit, 1 tablet daily. Follow-up: Follow up with your doctor tomorrow. Call for an appointment. Reason for referral: evaluation and treatment. Summary of care provided to patient and family. Understanding of the discharge instructions verbalized by patient. 14 Clinical Report - Physicians/Mid Levels [facility] Emergency Department [address] [place] [address] Phone #: [phone] 08/27/2020 16:42 Patient: YOVANI CASTILLO Sex: M : 1950 Age: 70y(Electronically signed by YENNIFER Hightower 08/28/2020 06:23) Name Value Range Interpretation Code Description Data Esthela rce(s) Supporting Document(s) ID Date Data Source [id number] 08/27/2020 05:55:00 PM EST [facility] Name Value Range Interpretation Code Description Data Esthela rce(s) Supporting Document(s) URINALYSIS [facility] UR[facility]ALYS[facility]OURCE [facility] COLOR yellow NORMAL: Yellow [facility] ospital CLARITY clear NORMAL: Clear [facility] Specific gravity of Urine by Test strip 1.010 1.001 - 1.030 [facility] pH 7 5 - 9 [facility] al Glucose [Mass/volume] in Urine by Test strip 250 NORMAL: [facility] Bilirubin.total [Presence] in Urine by Test strip NEG NORMAL: Negative [facility] Ketones [Presence] in Urine by Test strip NEG NORMAL: Negative [facility] Protein [Mass/volume] in Urine by Test strip 500 NORMAL: Negat [facility] Nitrite [Presence] in Urine by Test strip NEG NORMAL: Negative [facility] BLOOD 50 NORMAL: Negative [facility] Leukocyte esterase [Presence] in Urine by Test strip 25 ARMEN L: Negative [facility] Urobilinogen [Mass/volume] in Urine by Test strip NOR less sebastián n 1.0 mg/dL [facility] MICROSCOPIC See Below [facility] WBC 3 - 5 NORMAL: NONE SEEN [facility] Erythrocytes [#/volume] in Urine by Test strip 3 - 5 NORMAL: NON E SEEN [facility] EPITHELIAL FEW NORMAL: NONE SEEN [facility] Mucus [Presence] in Urine sediment by Light microscopy Trace NORMAL: NONE SEEN [facility] ID Date Data Source [id number] 08/27/2020 07:38:00 PM EST [facility] Name Value Range Interpretation Code Description Data Esthela rce(s) Supporting Document(s) BNP [id number] PG/ML 0 - 125 H [facility] ID Date Data Source [id number] 08/27/2020 05:48:[address] [facility] Name Value Range Interpretation Code Description Data Esthela rce(s) Supporting Document(s) TROPONIN T 0.11 NG/ML 0.00 - 0.10 [facility] Ho spital CALL/ READ BACK LIYA IN ED [facility] BY: DANIELLE [facility] DATE/TIME [facility] TROPONIN T0.1 ng/ml Recommended as the c linical threshold value Jackiejenaro YessicaCt ID Date Data Source [id number] 08/27/2020 05:45:00 PM EST [facility] Name Value Range Interpretation Code Description Data Esthela rce(s) Supporting Document(s) COMPREHENSIVE METABOLIC PANEL [facility] COMPREHENSIVE METABOLIC PANEL Sodium [Moles/volume] in Serum or Plasma 134 mEq/L 134 - 153 [facility] Potassium [Moles/volume] in Serum or Plasma 5.0 mEq/L 3.6 - 5.0 [facility] Chloride [Moles/volume] in Serum or Plasma 93 mEq/L 98 - 107 L [facility] Carbon dioxide, total [Moles/volume] in Serum or Plasma 29 MEQ/L 22 - 30 [facility] Glucose [Mass/volume] in Serum or Plasma 119 MG/DL 65 - 110 H [facility] BUN 59 MG/DL 7 - 21 [facility] Creatinine [Mass/volume] in Serum or Plasma 6.6 MG/DL 0.7 - 1.5 [facility] CALL/ READ BACK LIYA IN ED [facility] BY: DANIELLE [facility] DATE/TIME [facility] BUN/CREAT 9 8 - 27 [facility] al Protein [Mass/volume] in Serum or Plasma 6.7 G/DL 6.3 - 8.2 [facility] Albumin [Mass/volume] in Serum or Plasma 4.2 G/DL 3.9 - 5.0 [facility] Globulin [Mass/volume] in Serum by calculation 2.5 GM/DL 2.4 - 3.2 [facility] A/G RATIO 1.7 0.8 - 2.0 [facility] al Calcium [Mass/volume] in Serum or Plasma 9.2 MG/DL 8.4 - 10.2 [facility] Bilirubin.total [Mass/volume] in Serum or Plasma <0.7 MG/DL 0.2 - 1.3 [facility] Alkaline phosphatase [Enzymatic activity/volume] in Serum or Plasma 89 U/L 38 - 126 [facility] Aspartate aminotransferase [Enzymatic activity/volume] in Serum or Plasma 22 U/L 5 - 40 [facility] Alanine aminotransferase [Enzymatic activity/volume] in Seru m or Plasma 22 U/L 7 - 56 [facility] Anion gap 3 in Serum or Plasma 12.0 mmol/L 8.0 - 16.0 [facility] AGE 70 yrs [facility] NON-AA GFR 9 mL/min [facility] AFR AMER GFR 11 mL/min [facility] Male GFR In terprentation 20-49 yrs >60 mL/min Normal 50-59 yrs >56 mL/min Normal 60-69 yrs >49 mL/min Normal 70-79yrs >42 mL/min Normal 80 and above >35 mL/min Normal Female GFR Interpretation 20-39 yrs >60 mL/min Normal 40-49 yrs >58 mL/min Normal 50-59 yrs >51 mL/min Normal 60-69 yrs >45 mL/min Normal 70-79 yrs >39 mL/min Normal 80 and above >32 mL/min Normal ID Date Data Source [id number] 08/27/2020 05:42:00 PM EST [facility] Name Value Range Interpretation Code Description Data Esthela rce(s) Supporting Document(s) Prothrombin time (PT) 37.6 SECONDS 11.0 - 15.5 H [facility] INR in Platelet poor plasma by Coagulation assay 3.74 0.93 - 1. 23 H [facility] aPTT in Blood by Coagulation assay 45.2 SECONDS 24.8 - 36.7 H [facility] \\BLDo\\INR INTERPRETATION\\BLDx\\ Therapeutic range for Coumadin and related oral anticoagulants. - International Normalized Ratio (INR): 2.0 - 3.0 for Venous Thrombosis, Pulmonary Embolus, Tissue heart valves, Acute IA Atrial Fibrillation, Valvular heart disease and recurrent Systemic Embolism. - International Normalized Ratio (INR): 2.5 - 3.5 for Mechanical Prosthetic valve. ID Date Data Source [id number] 08/27/2020 05:31:[address] [facility] Name Value Range Interpretation Code Description Data Esthela rce(s) Supporting Document(s) CBC W/AUTOMATED DIFF [facility] COMPLETE BLOOD COUNT Leukocytes [#/volume] in Blood by Automated count 8.8 10^3/uL 4.2 - 1 1.0 [facility] Erythrocytes [#/volume] in Blood by Automated count 3.11 10^6/uL 4. 50 - 6.30 L [facility] Hemoglobin [Mass/volume] in Blood 10.4 g/dL 14.0 - 16.0 L [facility] Hematocrit [Volume Fraction] of Blood by Automated count 30.9 % 4 1.0 - 51.0 L [facility] Erythrocyte mean corpuscular volume [Entitic volume] by Auto mated count 99.4 fL 80.0 - 94.0 H [facility] Erythrocyte mean corpuscular hemoglobin [Entitic mass] by Automated count 33.4 pg 27.0 - 34.0 [facility] Erythrocyte mean corpuscular hemoglobin concentration [Mass/volume] by Automated count 33.7 g/dL 31.0 - 36.0 [facility] Erythrocyte distribution width [Ratio] by Automated count 15.7 % 11.5 - 14.8 H [facility] Platelets [#/volume] in Blood by Automated count 217 10^3/uL 150 - 45 0 [facility] Platelet mean volume [Entitic volume] in Blood by Automated count 9.0 fL 7.4 - 10.4 [facility] Neutrophils/100 leukocytes in Blood by Automated count 72.2 % 37. 0 - 80.0 [facility] Lymphocytes/100 leukocytes in Blood by Manual count 14.1 % 25.0 - 40.0 L [facility] Monocytes/100 leukocytes in Blood by Automated count 11.0 % 3.0 - 8.0 H [facility] Eosinophils/100 leukocytes in Blood by Automated count 1.8 % 0.0 - 7.0 [facility] Basophils/100 leukocytes in Blood by Automated count 0.6 % 0.0 - 2.0 [facility] %IG 0.3 % 0.0 - 0.0 [facility] %NRBC 0.0 % 0.0 - 0.0 [facility] al Neutrophils [#/volume] in Blood by Automated count 6.36 10^3/uL 2.00 - 6.90 [facility] Lymphocytes [#/volume] in Blood by Automated count 1.24 10^3/uL 0.60 - 3.40 [facility] Monocytes [#/volume] in Blood by Automated count 0.97 10^3/uL 0.00 - 0.90 H [facility] Eosinophils [#/volume] in Blood by Automated count 0.16 10^3/uL 0.00 - 0.70 [facility] Basophils [#/volume] in Blood by Automated count 0.05 10^3/uL 0.00 - 0.20 [facility] #IG 0.03 10^3/uL 0.00 - 0.10 [facility]sp[facility] #NRBC 0.00 10^3/uL 0.00 - 0.00 [facility] MANUAL DIFF NOT INDICATED [facility] RBC MORPH NOT INDICATED [facility] spital ID Date Data Source [id number] 08/27/2020 05:26:00 PM EST [facility] Name Value Range Interpretation Code Description Data Esthela rce(s) Supporting Document(s) Lactate [Moles/volume] in Serum or Plasma 1.9 MMOL/L 0.2 - 2.2 [facility] ID Date Data Source [id number] 08/09/2020 08:54:49 AM EDT [facility] Name Value Range Interpretation Code Description Data Esthela rce(s) Supporting Document(s) &PDF [facility] DMTSBy0uIoVJNaKr67/WUUfsHSIle9OkMZbcVSf5QQudOMXcO8VjoVsoQPLYQEoNFFMKUJ7dKxWaTTYn G [file] voNXXs2JS4IXrqirutYUu8lZ6zWkY51N1oO1dzMaDaM/Sebastián/3jJR5FOZ75OE5bbpxQmec/ULPcm0ZP3n [file] AgICAgICAgICAgICAgICAgICAgICAgICAgICAgICAg ICAgICAgICAgICAgICAgICAgICAgICAgICAgICAgICAgICAgICAgICAgICAgICAgICAgDQogICAgICAg ICAgICAgICAgICAgICAgICAgICAgICAgICAgICAgICAgICAgICAgICAgICAgICAgICAgICAgICAgICAg ICAgICAgICAgICAgICAgICAgICAgICAgICAgICAgIC AgDQogICAgICAgICAgICAgICAgICAgICAgICAgICAgICAgICAgICAgICAgICAgICAgICAgICAgICAgIC AgICAgICAgICAgICAgICAgICAgICAgICAgICAgICAgICAgICAgICAgICAgDQogICAgICAgICAgICAgIC AgICAgICAgICAgICAgICAgICAgICAgICAgICAgICAg ICAgICAgICAgICAgICAgICAgICAgICAgICAgICAgICAgICAgICAgICAgICAgICAgICAgICAgDQogICAg ICAgICAgICAgICAgICAgICAgICAgICAgICAgICAgICAgICAgICAgICAgICAgICAgICAgICAgICAgICAg ICAgICAgICAgICAgICAgICAgICAgICAgICAgICAgIC AgICAgDQogICAgICAgICAgICAgICAgICAgICAgICAgICAgICAgICAgICAgICAgICAgICAgICAgICAgIC AgICAgICAgICAgICAgICAgICAgICAgICAgICAgICAgICAgICAgICAgICAgICAgDQogICAgICAgICAgIC AgICAgICAgICAgICAgICAgICAgICAgICAgICAgICAg ICAgICAgICAgICAgICAgICAgICAgICAgICAgICAgICAgICAgICAgICAgICAgICAgICAgICAgICAgDQog ICAgICAgICAgICAgICAgICAgICAgICAgICAgICAgICAgICAgICAgICAgICAgICAgICAgICAgICAgICAg ICAgICAgICAgICAgICAgICAgICAgICAgICAgICAgIC AgICAgICAgDQogICAgICAgICAgICAgICAgICAgICAgICAgICAgICAgICAgICAgICAgICAgICAgICAgIC AgICAgICAgICAgICAgICAgICAgICAgICAgICAgICAgICAgICAgICAgICAgICAgICAgDQogICAgICAgIC AgICAgICAgICAgICAgICAgICAgICAgICAgICAgICAg ICAgICAgICAgICAgICAgICAgICAgICAgICAgICAgICAgICAgICAgICAgICAgICAgICAgICAgICAgICAg RTz6O2ekGVJsGVEqUE5yJCt4Wf3+IFoWYcWiPKW6zcJzoJ4FCF5rq2RoFLdxPZNuc5QeBYw7FM0DRKTz JJnpIT5UWJzfeu6SHDZoGBCwzNYTq3teXuFkJXA2YQ PlGgzxJP1XDKRjB0xkfuAeJBBgTTIZXPdxSNAOWE3BGmXoQ6ScgT01PSXCFg2+UTykayWsAafYLvI6CW Bks8FhMVk9TO4WDINbGNogKN7ZBDYfyJ6zYRzfLI2CClCdFKDyZMXKNhFqF41qhRFvGIx9A1XpEzZcDD VkRmlsZXMgPDwvTmFtZXMgWyBdDQogID4+ID4+DQog KF5LYZbcijZqSTKyEk6PJPJfDAL9PWBxoCJeVqIoBFZUMPydPO3YdAShQGQ1xW1hGKdqDZVuBUQgK5hP KcJfiRshQQ22wJmiusEyvDHgIZn+Nf7SBV7rc0LlQZd2geNnICbmJIW2VSmwIDTeBYAeSEOgIQP6BZL8 RNEXKuPoEEBvBMFkEJbqTPLzKUBjei4ZNWDcIEUtGN ckASCyNWXgJCPpASauPVUoMWR1KEK6PCMdUFWoBL8POiMgRHEvFPNhWMCdCIXsOJHyfk3GZBNgPPUnYz K1MfEzTTVvAGUaTOqxIIZrXYAcWCppTSSvAOApNF6NTePcNJRtBZQzZTHsXAHcVUQulc4EQTYsGRRrTo IwMNAyLEWvIUQpIBmyOLVmLNG5PXp2JGVyJFRnTA0R ToFfJXRzKCwsUoZjWEQxLBRrui7SKNVcWJFiMsB3ZZOdPBHkLIEmIIyqAMFcGMU9FEO2VHBsHWPqWH6I ViSiEDTzWZr5RELeKTLaAABvbe4QLWCiHVWcRKitAKSmNQLwADMqCQxrTERcVSZnGhOmUJEsWLRnKI8Z QzAqWOVqPVLgAmiqQNBoKRNand9NQPNxWQFpKER0QE QkKUYmTNNeSPilRXPcEYU1MDL2KIDoIRKxWR7NUpDzOYErJEJ7FlRnSOXlLWCduh2NRGBoYGStFDVlVK MzGKKsFMMzSRfbLHYuGKC5YPTxQGHjQKBgTL2LOhZcJFXaSVO3VnArSSEuYIVqzp2WXYDaEDHcTTX8ZB GfJQKbEXPoHExmAGJuRWS5Dgw2LLUkJPGwWN7ZFoLp VEAjCbPqHiGeYUNvKQUgzc0XCCEuULBnYuX7MRCpQPBaKNNyONo4qiSaiZVvRKv1NS6MQ2LahmTvLiwE Pr0Qc042JSD6RJXtGl9JN0gtPn4sRKJxGNHLTe0NGWb7QUM3UoIeDIa0CIZ3GmW8DSW7ZQgkXlWcLdL8 NGEzNDI+QTw3Slu7NgYfXsIbYgkuLoG1TQjvXTC6Fh HkYDc7NZP4Ke6zOTTECh4+JMedlQEaoDlrRNDOZlA4RpH6BQrjDYVCOo5U Procedure Social History Code Duration Value Status Description Data Source(s ) Alcohol intake 05/09/2021 12:00:00 AM EDT Ex-drinker (finding) comp leted Ex- drinker (finding) [facility] Smoking 02/25/2021 12:00:00 AM EDT Patient is a former smoker completed Patient is a former smoker [facility] ([facility]) Alcohol intake 01/03/2021 12:00:00 AM EST Not Currently completed [facility] Smoking 01/03/2021 12:00:00 AM EST Former smoker completed Former smoker [facility] Alcohol intake 10/16/2020 12:00:00 AM EST Not Currently completed [facility] Smoking 10/16/2020 12:00:00 AM EST Former smoker completed Former smoker [facility] Smoking 10/14/2020 01:05:18 PM EST Ex-smoker (finding) [facility] ed Ex-smoker (finding) TY (Raven Hutchison MD [facility]) Alcohol intake 09/27/2020 12:00:00 AM EST Not Currently completed [facility] Smoking 09/27/2020 12:00:00 AM EST Former smoker completed Former smoker [facility] Smoking 09/17/2020 09:47:45 AM EST Ex-smoker (finding) [facility] ed Ex-smoker (finding) TY (Raven Hutchison MD [facility]) Smoking 09/17/2020 09:38:22 AM EST Ex-smoker (finding) complet ed Ex-smoker (finding) TY (Raven Hutchison MD [facility]) Smoking 09/17/2020 09:24:31 AM EST Ex-smoker (finding) complet ed Ex-smoker (finding) TY (Raven Hutchison MD [facility]) Smoking 09/17/2020 09:05:12 AM EST Ex-smoker (finding) complet ed Ex-smoker (finding) TY (Raven Hutchison MD [facility]) Smoking 09/17/2020 08:52:00 AM EST Ex-smoker (finding) complet ed Ex-smoker (finding) TY (Raven Hutchison MD [facility]) Smoking 09/17/2020 08:45:24 AM EST Ex-smoker (finding) complet ed Ex-smoker (finding) TY (Raven Hutchison MD [facility]) Vital Signs ID Date Data Source UNK Name Value Range Interpretation Code Description Data Source(s) Systolic blood pressure 124 mm[Hg] 124 mm[Hg] M EDENT ([facility]) Diastolic blood pressure 62 mm[Hg] 62 mm[Hg] MEDENT ([facility]) Heart rate 65 /min 65 /min [facility] ([facility]) Body height 68.25 [in_i] 68.25 [in_i] MEDENT ([facility]) 5'8.25" Body weight 185.00 [lb_av] 185.00 [lb_av] MEDEN T ([facility]) Body mass index (BMI) [Ratio] 27.9 kg/m2 27.9 k g/m2 [facility] ([facility]) Oxygen saturation in Arterial blood by Pulse oximetry 96 % 96 % [facility] ([facility]) Body height 69 [in_i] 69 [in_i] MEDENT ([facility], ) 5'9" Body mass index (BMI) [Ratio] 26.9 kg/m2 26.9 k g/m2 [facility] ([facility], ) [place] body weight 160 [lb_av] 160 [lb_av] MEDEN T ([facility], ) Diastolic blood pressure 74 mm[Hg] 74 mm[Hg] MEDENT ([facility], ) Body weight 82.555 kg 82.555 kg MEDENT ([facility], ) Body weight 182.00 [lb_av] 182.00 [lb_av] MEDEN T ([facility], ) Systolic blood pressure 155 mm[Hg] 155 mm[Hg] M EDENT ([facility], ) Body surface area Derived from formula 1.98 m2 1.98 m2 [facility] ([facility], ) Body mass index (BMI) [Ratio] 27.8 kg/m2 27.8 k g/m2 [facility] ([facility] Oxygen saturation in Arterial blood by Pulse oximetry 98 % 98 % [facility] ([facility] ) Systolic blood pressure 126 mm[Hg] 126 mm[Hg] M EDENT ([facility] ) Diastolic blood pressure 60 mm[Hg] 60 mm[Hg] [facility] ([facility] ) Heart rate 54 /min 54 /min [facility] ([facility]) Body height 68.25 [in_i] 68.25 [in_i] MEDENT ([facility]) 5'8.25" Body weight 184.31 [lb_av] 184.31 [lb_av] MEDEN T ([facility]) Systolic blood pressure 130 mm[Hg] 130 mm[Hg] [facility] Diastolic blood pressure 60 mm[Hg] 60 mm[Hg] [facility] Heart rate 61 /min 61 /min [facility] Respiratory rate 18 /min 18 /min [facility] Body weight 85.276 kg 85.276 kg [facility] Body mass index (BMI) [Ratio] 28.59 kg/m2 28.59 kg/m2 [facility] Oxygen saturation in Arterial blood by Pulse oximetry 98 % 98 % [facility] Body weight 183.8 [lb_av] 183.8 [lb_av] W1 ([facility]) Body height 69 [in_i] 69 [in_i] W1 ([facility]) Body mass index (BMI) [Ratio] 27.14 kg/m2 27.14 kg/m2 [facility] ([facility]) Heart rate 58 /min 58 /min eCW1 ([facility]) Respiratory rate 18 /min 18 /min eCW1 ([facility]) Body temperature 97.2 [degF] 97.2 [degF] eCW1 ( [facility]) Systolic blood pressure 170 mm[Hg] 170 mm[Hg] e CW1 ([facility]) Diastolic blood pressure 71 mm[Hg] 71 mm[Hg] eCW1 ([facility]) Body temperature 97.3 [degF] 97.3 [degF] MEDENT ([facility]) Body height 66.5 [in_i] 66.5 [in_i] MEDENT ([facility]) 5'6.50" Body weight 179.00 [lb_av] 179.00 [lb_av] MEDEN T ([facility]) Body mass index (BMI) [Ratio] 28.5 kg/m2 28.5 k g/m2 [facility] ([facility]) Body temperature 97.3 [degF] 97.3 [degF] [facility] ([facility]) Body height 66.5 [in_i] 66.5 [in_i] MEDENT ([facility]) 5'6.50" Body weight 179.00 [lb_av] 179.00 [lb_av] MEDEN T ([facility]) Body mass index (BMI) [Ratio] 28.5 kg/m2 28.5 k g/m2 [facility] ([facility]) Body weight 182.2 [lb_av] 182.2 [lb_av] eCW1 ([facility]) Body height 69 [in_i] 69 [in_i] eCW1 ([facility]) Body mass index (BMI) [Ratio] 26.90 kg/m2 26.90 kg/m2 W1 ([facility]) Heart rate 64 /min 64 /min eCW1 ([facility]) Respiratory rate 18 /min 18 /min eCW1 ([facility]) Body temperature 95.4 [degF] 95.4 [degF] eCW1 ( [facility]) Systolic blood pressure 136 mm[Hg] 136 mm[Hg] e CW1 ([facility]) Diastolic blood pressure 60 mm[Hg] 60 mm[Hg] eCW1 ([facility]) Systolic blood pressure 122 mm[Hg] 122 mm[Hg] M EDENT ([facility]) Diastolic blood pressure 60 mm[Hg] 60 mm[Hg] MEDENT ([facility]) Heart rate 55 /min 55 /min [facility] ([facility]) Body temperature 96.5 [degF] 96.5 [degF] MEDENT ([facility]) Body height 68.25 [in_i] 68.25 [in_i] MEDENT ([facility]) 5'8.25" Body weight 176.50 [lb_av] 176.50 [lb_av] MEDEN T ([facility]) Body mass index (BMI) [Ratio] 26.6 kg/m2 26.6 k g/m2 [facility] ([facility]) Oxygen saturation in Arterial blood by Pulse oximetry 99 % 99 % [facility] ([facility]) Body weight 177 [lb_av] 177 [lb_av] eCW1 ([facility]) Body height 69 [in_i] 69 [in_i] eCW1 ([facility]) Body mass index (BMI) [Ratio] 26.14 kg/m2 26.14 kg/m2 [facility] ([facility]) Heart rate 62 /min 62 /min eCW1 ([facility]) Respiratory rate 18 /min 18 /min eCW1 ([facility]) Body temperature 97.4 [degF] 97.4 [degF] eCW1 ( [facility]) Systolic blood pressure 137 mm[Hg] 137 mm[Hg] e CW1 ([facility]) Diastolic blood pressure 64 mm[Hg] 64 mm[Hg] eCW1 ([facility]) Systolic blood pressure 126 mm[Hg] 126 mm[Hg] [facility] Diastolic blood pressure 52 mm[Hg] 52 mm[Hg] [facility] Heart rate 65 /min 65 /min [facility] Respiratory rate 20 /min 20 /min [facility] Body height 172.7 cm 172.7 cm [facility] Body weight 80.287 kg 80.287 kg [facility] Body mass index (BMI) [Ratio] 26.91 kg/m2 26.91 kg/m2 [facility] Oxygen saturation in Arterial blood by Pulse oximetry 95 % 95 % [facility] Body mass index (BMI) [Ratio] 27.2 kg/m2 27.2 k g/m2 [facility] ([facility]) Body temperature 97.8 [degF] 97.8 [degF] MEDENT ([facility]) Body height 69 [in_i] 69 [in_i] MEDENT ([facility]) 5'9" Body weight 184.00 [lb_av] 184.00 [lb_av] MEDEN T ([facility]) Diastolic blood pressure 65 mm[Hg] 65 mm[Hg] MEDENT ([facility], ) Systolic blood pressure 131 mm[Hg] 131 mm[Hg] M EDENT ([facility], ) Body height 69 [in_i] 69 [in_i] MEDENT ([facility], ) 5'9" Body weight 185.00 [lb_av] 185.00 [lb_av] MEDEN T ([facility], ) [place] body weight 160 [lb_av] 160 [lb_av] MEDEN T ([facility], ) Body mass index (BMI) [Ratio] 27.3 kg/m2 27.3 k g/m2 [facility] ([facility], ) Body weight 83.916 kg 83.916 kg [facility] ([facility], ) Body surface area Derived from formula 2.00 m2 2.00 m2 [facility] ([facility], ) Body weight 184.31 [lb_av] 184.31 [lb_av] MEDEN T ([facility]) Body mass index (BMI) [Ratio] 27.8 kg/m2 27.8 k g/m2 [facility] ([facility]) Oxygen saturation in Arterial blood by Pulse oximetry 97 % 97 % [facility] ([facility]) Systolic blood pressure 124 mm[Hg] 124 mm[Hg] M EDENT ([facility]) Diastolic blood pressure 74 mm[Hg] 74 mm[Hg] MEDENT ([facility]) Heart rate 64 /min 64 /min MEDENT ([facility]) Body temperature 96.8 [degF] 96.8 [degF] MEDENT ([facility]) Body height 68.25 [in_i] 68.25 [in_i] MEDENT ([facility]) 5'8.25" Diastolic blood pressure 78 mm[Hg] 78 mm[Hg] [facility] Heart rate 59 /min 59 /min [facility] Body weight 83.462 kg 83.462 kg [facility] Oxygen saturation in Arterial blood by Pulse oximetry 99 % 99 % [facility] Systolic blood pressure 118 mm[Hg] 118 mm[Hg] [facility] Body height 172.7 cm 172.7 cm [facility] Body mass index (BMI) [Ratio] 27.98 kg/m2 27.98 kg/m2 [facility] Systolic blood pressure 120 mm[Hg] 120 mm[Hg] [facility] Diastolic blood pressure 65 mm[Hg] 65 mm[Hg] [facility] Heart rate 97 /min 97 /min [facility] Body height 172.7 cm 172.7 cm [facility] Body weight 86.183 kg 86.183 kg [facility] Body mass index (BMI) [Ratio] 28.89 kg/m2 28.89 kg/m2 [facility] Oxygen saturation in Arterial blood by Pulse oximetry 99 % 99 % [facility] Systolic blood pressure 126 mm[Hg] 126 mm[Hg] M EDENT ([facility]) Diastolic blood pressure 70 mm[Hg] 70 mm[Hg] MEDENT ([facility]) Heart rate 77 /min 77 /min MEDENT ([facility]) Body temperature 97.6 [degF] 97.6 [degF] MEDENT ([facility]) Body weight 175.25 [lb_av] 175.25 [lb_av] MEDEN T ([facility]) Body mass index (BMI) [Ratio] 26.4 kg/m2 26.4 k g/m2 MEDENT ([facility]) Oxygen saturation in Arterial blood by Pulse oximetry 99 % 99 % MEDENT ([facility]) Body height 68.25 [in_i] 68.25 [in_i] MEDENT ([facility]) 5'8.25" Body weight 189.8 [lb_av] 189.8 [lb_av] eCW1 ([facility]) Body height 69 [in_i] 69 [in_i] eCW1 ([facility]) Body mass index (BMI) [Ratio] 28.03 kg/m2 28.03 kg/m2 eCW1 ([facility]) Heart rate 53 /min 53 /min eCW1 ([facility]) Respiratory rate 18 /min 18 /min eCW1 ([facility]) Body temperature 98.2 [degF] 98.2 [degF] eCW1 ( [facility]) Systolic blood pressure 135 mm[Hg] 135 mm[Hg] e CW1 ([facility]) Diastolic blood pressure 56 mm[Hg] 56 mm[Hg] eCW1 ([facility]) Patient Treatment Plan of Care Planned Activity Planned Date Details Description Data Source (s) Acetaminophen 325 MG / Hydrocodone Bitartrate 5 MG Ora l Tablet 08/21/2021 12:00:00 AM EDT eCW1 ([facility]) Acetaminophen 325 MG / Hydrocodone Bitartrate 5 MG Ora l Tablet 08/21/2021 12:00:00 AM EDT eCW1 ([facility]) Acetaminophen 325 MG / Hydrocodone Bitartrate 5 MG Ora l Tablet 08/21/2021 12:00:00 AM EDT eCW1 ([facility]) Acetaminophen 325 MG / Hydrocodone Bitartrate 5 MG Ora l Tablet 08/21/2021 12:00:00 AM EDT eCW1 ([facility]) Acetaminophen 325 MG / Hydrocodone Bitartrate 5 MG Ora l Tablet 08/21/2021 12:00:00 AM EDT eCW1 ([facility]) Acetaminophen 325 MG / Hydrocodone Bitartrate 5 MG Ora l Tablet 07/22/2021 12:00:00 AM EDT eCW1 ([facility]) Acetaminophen 325 MG / Hydrocodone Bitartrate 5 MG Ora l Tablet 07/22/2021 12:00:00 AM EDT eCW1 ([facility]) Acetaminophen 325 MG / Hydrocodone Bitartrate 5 MG Ora l Tablet 06/19/2021 12:00:00 AM EDT eCW1 ([facility]) Warfarin Sodium 10 MG Oral Tablet 05/08/2021 12:00:00 AM EDT [facility] Acetaminophen 325 MG / Hydrocodone Bitartrate 5 MG Ora l Tablet 04/17/2021 12:00:00 AM EDT eCW1 ([facility]) Acetaminophen 325 MG / Hydrocodone Bitartrate 5 MG Ora l Tablet 04/17/2021 12:00:00 AM EDT eCW1 ([facility]) Acetaminophen 325 MG / Hydrocodone Bitartrate 5 MG Ora l Tablet 04/17/2021 12:00:00 AM EDT eCW1 ([facility]) Acetaminophen 325 MG / Hydrocodone Bitartrate 5 MG Ora l Tablet 04/17/2021 12:00:00 AM EDT eCW1 ([facility]) Acetaminophen 325 MG / Hydrocodone Bitartrate 5 MG Ora l Tablet 03/25/2021 12:00:00 AM EDT eCW1 ([facility]) Acetaminophen 325 MG / Hydrocodone Bitartrate 5 MG Ora l Tablet 02/25/2021 12:00:00 AM EDT eCW1 ([facility]) Acetaminophen 325 MG / Hydrocodone Bitartrate 5 MG Ora l Tablet 01/23/2021 12:00:00 AM EDT eCW1 ([facility]) Acetaminophen 325 MG / Hydrocodone Bitartrate 5 MG Ora l Tablet 01/23/2021 12:00:00 AM EDT eCW1 ([facility]) Nitroglycerin 0.4 MG Sublingual Tablet 01/20/2021 12:00:00 AM EDT [facility] Nitroglycerin 0.4 MG Sublingual Tablet 01/03/2021 12:00:00 AM EST [facility] Trazodone Hydrochloride 100 MG Oral Tablet 01/02/2021 12:00:00 AM E [facility] fluticasone (FLONASE) 50 MCG/ACT nasal spray 12/31/2020 12:00:00 AM EST [facility] cefdinir 300 MG Oral Capsule 12/31/2020 12:00:00 AM EST [facility] Acetaminophen 325 MG / Hydrocodone Bitartrate 5 MG Ora l Tablet 12/26/2020 12:00:00 AM EST eCW1 ([facility]) Acetaminophen 325 MG / Hydrocodone Bitartrate 5 MG Ora l Tablet 12/26/2020 12:00:00 AM EST eCW1 ([facility]) Acetaminophen 325 MG / Hydrocodone Bitartrate 5 MG Ora l Tablet 12/26/2020 12:00:00 AM EST eCW1 ([facility]) Acetaminophen 325 MG / Hydrocodone Bitartrate 5 MG Ora l Tablet 12/26/2020 12:00:00 AM EST eCW1 ([facility]) B-D UF III MINI PEN NEEDLES 31G X 5 MM MISC 12/25/2020 12:00:00 AM EST [facility] albuterol (PROVENTIL HFA;VENTOLIN HFA) 108 (90 Base) M CG/ACT inhaler 12/20/2020 12:00:00 AM EST [facility] Ondansetron 4 MG Disintegrating Oral Tablet 12/05/2020 12:00:00 AM EST [facility] Acetaminophen 325 MG / Hydrocodone Bitartrate 5 MG Ora l Tablet 11/27/2020 12:00:00 AM EST eCW1 ([facility]) Acetaminophen 325 MG / Hydrocodone Bitartrate 5 MG Ora l Tablet 11/27/2020 12:00:00 AM EST eCW1 ([facility]) Acetaminophen 325 MG / Hydrocodone Bitartrate 5 MG Ora l Tablet 11/27/2020 12:00:00 AM EST eCW1 ([facility]) Acetaminophen 325 MG / Hydrocodone Bitartrate 5 MG Ora l Tablet [[place]] 11/26/2020 12:00:00 AM EST eCW1 ([facility]) Acetaminophen 325 MG / Hydrocodone Bitartrate 5 MG Ora l Tablet [[place]] 11/26/2020 12:00:00 AM EST eCW1 ([facility]) Warfarin Sodium 1 MG Oral Tablet 11/02/2020 12:00:00 AM [facility] Acetaminophen 325 MG / Hydrocodone Bitartrate 5 MG Ora l Tablet [[place]] 10/24/2020 12:00:00 AM EST eCW1 ([facility]) Acetaminophen 325 MG / Hydrocodone Bitartrate 5 MG Ora l Tablet [[place]] 10/24/2020 12:00:00 AM EST eCW1 ([facility]) Pramipexole dihydrochloride 0.5 MG Oral Tablet 10/23/2020 12:00:00 AM [facility] pantoprazole 40 MG Delayed Release Oral Tablet 10/07/2020 12:00:00 AM [facility] sacubitril 24 MG / valsartan 26 MG Oral Tablet 09/29/2020 12:00:00 AM [facility] Lidocaine 25 MG/ML / Prilocaine 25 MG/ML Topical Cream 09/25/2020 12:00:[address] [facility] Acetaminophen 325 MG / Hydrocodone Bitartrate 5 MG Ora l Tablet [[place]] 09/23/2020 12:00:00 AM EST eCW1 ([facility]) valsartan 40 MG Oral Tablet 09/18/2020 12:00:00 AM EST [facility] moxifloxacin 5 MG/ML Ophthalmic Solution 09/08/2020 12:00:00 AM EST [facility] Ondansetron 4 MG Disintegrating Oral Tablet 09/08/2020 12:00:00 AM EST [facility] Acetaminophen 325 MG / Hydrocodone Bitartrate 5 MG Ora l Tablet [[place]] 08/23/2020 12:00:00 AM EDT eCW1 ([facility]) Acetaminophen 325 MG / Hydrocodone Bitartrate 5 MG Ora l Tablet [[place]] 08/23/2020 12:00:00 AM EDT eCW1 ([facility]) Acetaminophen 325 MG / Hydrocodone Bitartrate 5 MG Ora l Tablet [[place]] 08/23/2020 12:00:00 AM EDT eCW1 ([facility]) Acetaminophen 325 MG / Hydrocodone Bitartrate 5 MG Ora l Tablet [[place]] 08/23/2020 12:00:00 AM EDT eCW1 ([facility]) Acetaminophen 325 MG / Hydrocodone Bitartrate 5 MG Ora l Tablet [[place]] 08/23/2020 12:00:00 AM EDT eCW1 ([facility]) Aspirin 81 MG Delayed Release Oral Tablet 08/21/2020 12:00:00 AM ED T [facility] BromSite 0.075% Ophthalmic Solution 08/20/2020 12:00:00 AM EDT TY (Raven Hutchison MD [facility]) Inveltys 1% Ophthalmic Suspension 08/20/2020 12:00:00 AM EDT TY (Raven Hutchison MD [facility]) moxifloxacin 5 MG/ML Ophthalmic Solution 08/20/2020 12:00:00 AM EDT TY (Raven Hutchison MD [facility]) Ketorolac Tromethamine 4 MG/ML Ophthalmic Solution 08/20/2020 12 :00:00 AM EDT TY (Raven Hutchison MD [facility]) prednisolone acetate 10 MG/ML Ophthalmic Suspension [P red Forte] 08/20/2020 12:00:00 AM EDT [place] (Raven Hutchison MD [facility]) Donepezil hydrochloride 10 MG Oral Tablet 08/15/2020 12:00:00 AM ED T [facility] Nitroglycerin 0.4 MG Sublingual Tablet 06/09/2019 12:00:00 AM EDT [facility] Fluticasone Furoate (ARNUITY ELLIPTA) 50 MCG/ACT AEPB 02/06/2019 12:00:00 AM EDT [facility] Warfarin Sodium 7.5 MG Oral Tablet [facility] Pramipexole dihydrochloride 0.125 MG Oral Tablet [facility] Isosorbide Dinitrate 30 MG Oral Tablet [facility] Fluticasone propionate 0.5 MG/ML Topical Cream [facility]
[2021-09-27 15:47] LABS: VENOUS BASE EXCESS 1.1 (-2.0-2.0); VENOUS HCO3 26.2 MEQ/L (23.0-27.0); VENOUS O2 SATURATION 61.7 % (60.0-80.0); VENOUS PARTIAL PRESSURE CO2 43.9 mmHg (38.0-50.0); VENOUS PARTIAL PRESSURE O2 31.4 mmHg (30.0-50.0); VENOUS PH 7.394 UNITS (7.330-7.430); VENOUS STANDARD HCO3 24.7 MEQ/L; VENOUS TOTAL CO2 27.6 MEQ/L (24.0-28.0)
[2021-09-27 15:48] LABS: BASO # 0.1 10^3/uL (0.0-0.2); BASO % 0.7 % (0.0-1.0); EOS # 0.5 10^3/uL (0.0-0.5); EOS % 6.3 % (0.0-3.0); HEMATOCRIT 32.2 % (42.0-52.0); HEMOGLOBIN 10.4 g/dl (13.5-17.5); LYMPH # 1.3 10^3/uL (1.5-5.0); LYMPH % 17.8 % (24.0-44.0); MEAN CORPUSCULAR HEMOGLOBIN 32.6 pg (27.0-33.0); MEAN CORPUSCULAR HGB CONC 32.3 g/dl (32.0-36.5); MEAN CORPUSCULAR VOLUME 100.9 fl (80.0-96.0); MONO # 0.8 10^3/uL (0.0-0.8); MONO % 10.2 % (2.0-8.0); NEUTROPHILS # 4.9 10^3/uL (1.5-8.5); NEUTROPHILS % 64.6 % (36.0-66.0); PLATELET COUNT, AUTOMATED 119 10^3/uL (150-450); RED BLOOD COUNT 3.19 10^6/uL (4.30-6.10); WHITE BLOOD COUNT 7.5 10^3/uL (4.0-10.0)
--- OUTSIDE RECORDS SUMMARY | 2021-09-27 16:04 | CCD ---
Author Author [facility] Organization [facility] Address Unknown Phone Unavailable Care Team Providers Care Receivable Clerk Name Role Phone RAVEN PATRICK MD Unavailable [...] Unavailable Unavailable RAVEN PATRICK MD Unavailable Unavailable CELINA, RAVEN FITZGERALD Unavailable Unavailable RAVEN PATRICK MD [...] Unavailable REINDL, RAVEN FITZGERALD Unavailable Unavailable Fish, [facility], PA-C Unavailable Unavailabl e Fish, [facility], PA-C Unavailable Unavailabl e Fish, [facility], PA-C Unavailable Unavailabl e Fish, [facility], PA-C Unavailable Unavailabl e Fish, [facility], PA-C Unavailable Unavailabl e Fish, [facility], PA-C Unavailable Unavailabl e Fish, [facility], PA-C Unavailable Unavailabl e Fish, [facility], PA-C Unavailable Unavailabl e Fish, [facility], PA-C Unavailable Unavailabl e Fish, [facility], PA-C Unavailable Unavailabl e Fish, [facility], PA-C Unavailable Unavailabl e Fish, [facility], PA-C Unavailable Unavailabl e Fish, [facility], PA-C Unavailable Unavailabl e Fish, [facility], PA-C Unavailable Unavailabl e Fish, [facility], PA-C Unavailable Unavailabl e Fish, [facility], PA-C Unavailable Unavailabl e Fish, [facility], PA-C Unavailable Unavailabl e Fish, [facility], PA-C Unavailable Unavailabl e Fish, [facility], PA-C Unavailable Unavailabl e Fish, [facility], PA-C Unavailable Unavailabl e Fish, [facility], PA-C Unavailable Unavailabl e Fish, [facility], PA-C Unavailable Unavailabl e Fish, [facility], PA-C Unavailable Unavailabl e Fish, [facility], PA-C Unavailable Unavailabl e Fish, [facility], PA-C Unavailable Unavailabl e Fish, [facility], PA-C Unavailable Unavailabl e Fish, [facility], PA-C Unavailable Unavailabl e Fish, [facility], PA-C Unavailable Unavailabl e Fish, [place] [...] Unavailable AUDREY ANN MD Unavailable Unavailable SETH, AUDREY FITZGERALD Unavailable Unavailable [...] Unavailable Ali, Chris MD Unavailable Unavailable Ali, Hcris MD Unavailable Unavailable Ali, Chris MD Unavailable [...] Dacia FITZGERALD Unavailable Unavailable Fish, B Dacia FITZGERADL Unavailable Unavailable Gissel, J Scott PA-C Unavailable [...] is protected by Article 27-F of the [facility] Public Health law. If you continue you may have access to information: Regarding HIV / AIDS; Provided by facilities licensed or operated by the [facility] Office of Mental Health; or Provided by the [facility] Office for People With Developmental Disabilities. If such information is present, then the following [facility] mandated warning applies: This information has [...] law may result in a fine or long term sentence or both. A general authorization for the release of medical or other information is NOT sufficient authorization for further disc losure. Allergies and Adverse Reactions Type Description Substance Reaction Status Data Source(s ) Propensity to adverse reactions TRIPLE ANTIBIOTIC OINTMENT T RIPLE ANTIBIOTIC OINTMENT [facility] Propensity to adverse reactions DILANTIN DILANTIN [facility] Propensity to adverse reactions DEMEROL DEMEROL [facility] Propensity to adverse reactions TEGRETOL TEGRETOL [facility] Propensity to adverse reactions LEVAQUIN LEVAQUIN [facility] Propensity to adverse reactions LATEX LATEX [facility] Drug allergy PHENOBARBITAL PHENOBARBITAL [facility] Propensity to adverse reactions PENICILLINS (CLASS) PENICILLINS (CLAS S) [facility] Propensity to adverse reactions SULFAMETHOXAZOLE-TRIMETHOPRI M Sulfamethoxazole-Trimethoprim Active [facility] Propensity to adverse reactions QUINOLONES Quinolones Acti ve [facility] Propensity to adverse reactions POTASSIUM CITRATE potassium citrate Active [facility] Propensity to adverse reactions PENICILLINS Penicillins Ac tive [facility] Propensity to adverse reactions METYRAPONE Metyrapone Acti ve [facility] Propensity to adverse reactions MEPERIDINE Meperidine Acti ve [facility] Propensity to adverse reactions IMIPENEM-CILASTATIN Imipenem-Cilast atin Active [facility] Propensity to adverse reactions HEPARIN (PORCINE) Heparin (Porcine) Active [facility] Propensity to adverse reactions CHLORCYCLIZINE chlorcyclizine Active [facility] Propensity to adverse reactions KARMEN Karmen sinensis root extract Active [facility] Family History Family Member Name Family Member Gender Family Member Status Date o f Status Description Data Source(s) Unknown Male Problem MEDENT ([facility]) () Unknown Female Problem MEDENT ([facility]) Unknown Female Problem MEDENT ([facility]) Encounters Encounter Providers Location Date Indications Data Source(s ) Unknown [facility] [address] 09/23/2021 12:00:00 AM EST eCW1 ([facility]) Unknown [address] [facility] [address] 09/22/2021 12:00:00 AM EST [facility] [address] [facility] [address] 09/16/2021 12:00:00 AM EST eCW1 [facility] [place] [address] [facility] [place] [address] 09/12/2021 12:00:00 AM EST eCW1 ([facility] Unknown [address] [facility] [place] [address] 09/08/2021 12:00:00 AM EST [facility]CW1 [facility] [place] [address] [facility] [place] [address] 09/08/2021 12:00:00 AM EST eCW1 ([facility]) Unknown [address] [facility] [place] [address] 09/04/2021 12:00:00 AM EST eCW1 ([facility]) Outpatient Attender: Dacia Grace MD Physical Therapy 09/02 02:15:00 PM EST MEDENT ([facility]) Outpatient Attender: Chris Valles MD Main office - [place] 08/26/2021 01:45:00 PM EDT MEDENT ([facility]) Unknown [address] [facility] [place] [address] 08/21/2021 12:00:00 AM EDT eCW1 [facility]) Outpatient Attender: RAVEN Fraser/Abbe/Cabrera/Samy dl 08/07/2021 10:30:00 AM EDT [facility] ([facility] Unknown [address] [facility] [place] [address] 07/22/2021 12:00:00 AM EDT eCW1 ([facility]) Unknown [address] [facility] [place] [address] 07/21/2021 12:00:00 AM EDT eCW1 ([facility]) Office Visit Attender: IMTIAZ DE OLIVEIRA Physical Therapy 07/15/2021 03:45:00 PM EDT MEDENT ([facility]) Unknown [address] [facility] [address] 06/19/2021 12:00:00 AM EDT eCW1 ([facility]) Outpatient Attender: Dacia Grace MD Physical Therapy 06/10 10:00:00 AM EDT MEDENT ([facility]) Unknown [address] [facility] [address] 05/21/2021 12:00:00 AM EDT eCW1 ([facility]) Unknown [address] [facility] [address] 05/20/2021 12:00:00 AM EDT eCW1 ([facility]) Outpatient Attender: AUDREY ANN MD SJP.MONSE-SJP.MONSE 12:00:00 AM EDT - 05/09/2021 09:09:09 AM EDT [facility] [address] [facility] [address] 04/22/2021 12:00:00 AM EDT eCW1 ([facility]) OFFICE OUTPATIENT VISIT 15 MINUTES Attender: IMTIAZ DE OLIVEIRA Physical Therapy 04/17/2021 04:15:00 PM EDT MEDENT ([facility]) Unknown [address] [facility] [address] 04/16/2021 12:00:00 AM EDT eCW1 ([facility]) Unknown [address] [facility] [address] 04/15/2021 12:00:00 AM EDT eCW1 ([facility]) Outpatient [address] [facility] [address] 04/08/2021 12:00:00 AM EDT eCW1 ([facility]) Unknown [address] [facility] [address] 03/25/2021 12:00:00 AM EDT eCW1 ([facility]) Outpatient Attender: Dacia Grace MD Physical Therapy 02/25 10:30:00 AM EDT MEDENT ([facility]) Unknown [address] [facility] [address] 02/24/2021 12:00:00 AM EDT eCW1 ([facility]) Unknown [address] [facility] [address] 02/06/2021 12:00:00 AM EDT eCW1 ([facility]) Unknown [address] [facility] [address] 01/22/2021 12:00:00 AM EDT eCW1 ([facility]) Outpatient Attender: Chris Valles MD Main office - [place] 01/14/2021 11:30:00 AM EDT MEDENT ([facility]) Outpatient [address] [facility] [address] 01/09/2021 12:00:00 AM EDT eCW1 ([facility]) Unknown [address] [facility] [place] [address] 01/08/2021 12:00:00 AM EDT eCW1 ([facility]) Outpatient Attender: AUDREY ANN MD SJP.MONSE-SJP.MONSE 12:00:00 AM EST - 01/03/2021 09:01:53 AM EST [facility] Unknown [address] [facility] [address] 01/01/2021 12:00:00 AM EST eCW1 ([facility]) OFFICE OUTPATIENT VISIT 15 MINUTES Attender: Ashley MILLS PA-C Physical Therapy 12/31/2020 08:15:00 AM EST MEDENT ([facility]) Unknown [address] [facility] [place] [address] 12/31/2020 12:00:00 AM EST eCW1 ([facility]) Unknown [address] [facility] [address] 12/20/2020 12:00:00 AM EST eCW1 ([facility]) Unknown [address] [facility] [address] 12/20/2020 12:00:00 AM EST eCW1 ([facility]) Unknown [address] [facility] [address] 12/13/2020 12:00:00 AM EST eCW1 ([facility]) Outpatient Attender: Ashley MILLS PA-C Physical Therapy 12/03/2020 12:00:00 PM EST MEDENT ([facility]) Unknown [address] [facility] [address] 11/27/2020 12:00:00 AM EST eCW1 ([facility]) Unknown [address] [facility] [place] [address] 11/26/2020 12:00:00 AM EST eCW1 ([facility]) Unknown [address] [facility] [place] [address] 11/25/2020 12:00:00 AM EST eCW1 ([facility]) Unknown [address] [facility] [place] [address] 11/25/2020 12:00:00 AM EST eCW1 ([facility]) Unknown [address] [facility] [place] [address] 11/13/2020 12:00:00 AM EST eCW1 ([facility]) [place] [address] [facility] [place] [address] 11/08/2020 12:00:00 AM EST eCW1 ([facility]) Outpatient Attender: Dacia Grace MD Physical Therapy 10/29 10:45:00 AM EST MEDENT ([facility]) Unknown [address] [facility] [place] [address] 10/24/2020 12:00:00 AM EST eCW1 ([facility]) Outpatient Attender: AUDREY ANN MD SJP.MONSE-SJP.MONSE 0 12:00:00 AM EST - 10/16/2020 11:10:03 AM EST [facility] <td ID="encounterTypeDescriptionID0">1 W K PREOP FOR SURGERY</td><td>Darrell Lim DO</td><td>Raven Poe MD [facility]</td><td>10/10/2020</td><td>9:38AM</td><td>11:11AM</td><td><content ID="encounterDiagnosisID0-0">Cataract Senile Nuclear</content>, <content ID="encounterDiagnosisID0-1">Pseudophakia</content></td>Outpatient Attender: DARRELL Shairf MD [facility] 10/10/2020 09:38:00 AM EST - 10/10/2020 11:11:00 AM EST PseudophakiaCataract Senile Nuclear MENDON (Raven Hutchison MD [employer]) Pseudophakia Cataract Senile Nuclear Outpatient Attender: AUDREY ANN MD SJP.MONSE-SJP.[facility] 0 12:00:00 AM EST - 09/27/2020 09:22:52 AM EST [facility] Unknown [address] [facility] [address] 09/23/2020 12:00:00 AM EST eCW1 ([facility]) <td ID="encounterTypeDescriptionID1">POS T OP VISIT WITH PRE-OP</td><td>Darrell Lim DO</td><td>Raven Poe MD [employer]</td><td>09/12/2020</td><td>1:00PM</td><td>2:01PM</td><td><content ID="encounterDiagnosisID1-0">Pseudophakia</content>, <content ID="encounterDiagnosisID1-1">Cataract Senile Nuclear</content></td>Outpatient Attender: DARRELL Sharif MD [facility] 09/12/2020 01:00:00 PM EST - 09/12/2020 02:01:00 PM EST PseudophakiaPseudophakiaPseudophakiaPseudophakiaPseudophakiaPseudophakiaPseudoph akiaPseudophakiaCataract Senile NuclearCataract Senile NuclearCataract Senile NuclearCataract Senile NuclearCataract Senile NuclearCataract Senile Nuclear Cataract Senile NuclearCataract Senile Nuclear TY (Raven Hutchison MD [employer]) Pseudophakia Pseudophakia Pseudophakia Pseudophakia Pseudophakia Pseudophakia Pseudophakia Pseudophakia Cataract Senile Nuclear Cataract Senile Nuclear Cataract Senile Nuclear Cataract Senile Nuclear Cataract Senile Nuclear Cataract Senile Nuclear Cataract Senile Nuclear Cataract Senile Nuclear Unknown [address] [facility], [facility] [address] 09/10/2020 12:00:00 AM EST eCW1 ([facility]) Outpatient<td ID="encounterTypeDescripti onID2">SAME DAY POST OP</td><td>Darrell Lim DO</td><td>[facility]</td><td>09/05/2020</td><td>7:33AM</td><td>7:33AM</td><td></td> Attender: DARRELL LIM DO [facility] 09/05/2020 07:33:00 AM EST - 09/05/2020 07:33:00 AM EST TY (Raven lowe MD [facility]) Outpatient<td ID="encounterTypeDescripti onID3">Extracapsular cataract removal w/IOL implant</td><td>Darrell Lim DO</td><td>[facility]</td><td>09/05/2020</td><td>7:04AM</td><td>7:04AM</td><td></td> Attender: DARRELL LIM DO [facility] 09/05/2020 07:04:00 AM EST - 09/05/2020 07:04:00 AM EST TY (Raven lowe MD [facility]) Emergency Attender: Scott DE OLIVEIRA-CConsultant: Shan wagner DO 08/27/2020 04:44:00 PM EST - 08/27/2020 08:57:00 PM EST [facility] Patient discharged. Outpatient Attender: Dacia Grace MD Physical Therapy 08/27 10:30:00 AM EST MEDENT ([facility]) Unknown [address] [facility], [facility] [address] 08/23/2020 12:00:00 AM EDT eCW1 ([facility]) Unknown [address] [facility] [place] [address] 08/22/2020 12:00:00 AM EDT eCW1 ([facility]) Unknown [address] [facility], [facility] [address] 08/22/2020 12:00:00 AM EDT eCW1 ([facility]) Outpatient Attender: AUDREY ANN MD SJ.MONSE-SJP.MONSE 0 12:00:00 AM EDT - 08/21/2020 10:10:17 AM EDT [facility] Outpatient<td ID="encounterTypeDescripti onID4">1 WK PREOP FOR SURGERY</td><td>Darrell Lim DO</td><td>Raven Poe MD [facility]</td><td>08/20/2020</td><td>9:47AM</td><td>10:48AM</td><td><content ID="encounterDiagnosisID4-0">Cataract Senile Nuclear</content></td> Attender: DARRELL Sharif MD [facility] 08/20/2020 09:47:00 AM EDT - 08/20/2020 10:48:00 AM EDT Cataract Senile NuclearCataract Senile NuclearCataract Senile NuclearCataract Senile NuclearCataract Senile NuclearCataract Senile NuclearCataract Senile NuclearCataract Senile Nuclear TY (Raven Hutchison MD [facility]) Cataract Senile Nuclear Cataract Senile Nuclear Cataract Senile Nuclear Cataract Senile Nuclear Cataract Senile Nuclear Cataract Senile Nuclear Cataract Senile Nuclear Cataract Senile Nuclear Unknown [address] [facility] [address] 08/19/2020 12:00:00 AM EDT eCW1 ([facility]) Outpatient Attender: Chris Valles MD Main office [facility] 08/15/2020 12:45:00 PM EDT MEDENT ([facility]) Outpatient [address] [facility] [place] [address] 08/13/2020 12:00:00 AM EDT eCW1 ([facility]) Outpatient Referrer: AUDREY MURPHY.KRISHNA.MONSE 08/08/2020 12:00:00 AM EDT [facility] Unknown [address] [facility] [address] 08/05/2020 12:00:00 AM EDT eCW1 ([facility]) Unknown [address] [facility] [place] [address] 07/29/2020 12:00:00 AM EDT eCW1 ([facility]) Outpatient Attender: AUDREY ANN MDConsultant: AUDREY Mohan JP.MONSE-SJPCtMONSE 04/12/2020 01:22:39 PM EDT - 04/12/2020 02:33:57 PM EDT [facility] Immunizations Vaccine Date Status Description Data Source(s) COVID-19 VACCINE Pfizer 09/15/2021 12:00:00 AM EST completed [facility] Vaccine Series Complete: YESThis Data wa s Submitted to [facility]. COVID-19 VACC, MRNA(PFIZER)/PF 09/15/2021 12:00:00 AM EST completed [facility] COVID-19 VACCINE Pfizer 02/21/2021 12:00:00 AM EDT completed [facility] Vaccine Series Complete: NOThis Data was Submitted to [facility]. Medications Medication Brand Name Start Date Product Form Dose Route Admi nistrative Instructions Pharmacy Instructions Status Indications Reaction Description [facility]#[id number] (60mg Syringe)1MG 09/02/2021 12:00:00 AM [facility] Medication administered onsite Acetaminophen 325 MG / Hydrocodone Tiffanie trate 5 MG Oral Tablet HYDROcodone- Acetaminophen 5-325 MG HYDROcodone-Acetaminophen 5-325 MG 08/21/2021 12:00:00 AM EDT 1.0 {tablet_as_needed} active HYDROcodone-Acetaminophen 5-325 MG eCW1 ([facility]) Acetaminophen 325 MG / Hydrocodone Tiffanie trate 5 MG Oral Tablet HYDROcodone- Acetaminophen 5-325 MG HYDROcodone-Acetaminophen 5-325 MG 08/21/2021 12:00:00 AM EDT 1.0 {tablet_as_needed} active HYDROcodone-Acetaminophen 5-325 MG eCW1 ([facility]) Acetaminophen 325 MG / Hydrocodone Tiffanie trate 5 MG Oral Tablet HYDROcodone- Acetaminophen 5-325 MG HYDROcodone-Acetaminophen 5-325 MG 08/21/2021 12:00:00 AM EDT 1.0 {tablet_as_needed} active HYDROcodone-Acetaminophen 5-325 MG eCW1 ([facility]) Acetaminophen 325 MG / Hydrocodone Tiffanie trate 5 MG Oral Tablet HYDROcodone- Acetaminophen 5-325 MG HYDROcodone-Acetaminophen 5-325 MG 08/21/2021 12:00:00 AM EDT 1.0 {tablet_as_needed} active HYDROcodone-Acetaminophen 5-325 MG eCW1 ([facility]) Acetaminophen 325 MG / Hydrocodone Tiffanie trate 5 MG Oral Tablet HYDROcodone- Acetaminophen 5-325 MG HYDROcodone-Acetaminophen 5-325 MG 08/21/2021 12:00:00 AM EDT 1.0 {tablet_as_needed} active HYDROcodone-Acetaminophen 5-325 MG eCW1 ([facility]) Acetaminophen 325 MG / Hydrocodone Tiffanie trate 5 MG Oral Tablet HYDROcodone- Acetaminophen 5-325 MG HYDROcodone-Acetaminophen 5-325 MG 08/21/2021 12:00:00 AM EDT 1.0 {tablet_as_needed} active HYDROcodone-Acetaminophen 5-325 MG eCW1 ([facility]) Acetaminophen 325 MG / Hydrocodone Tiffanie trate 5 MG Oral Tablet HYDROcodone- Acetaminophen 5-325 MG HYDROcodone-Acetaminophen 5-325 MG 08/21/2021 12:00:00 AM EDT 1.0 {tablet_as_needed} active HYDROcodone-Acetaminophen 5-325 MG eCW1 ([facility]) Acetaminophen 325 MG / Hydrocodone Tiffanie trate 5 MG Oral Tablet HYDROcodone- Acetaminophen 5-325 MG HYDROcodone-Acetaminophen 5-325 MG 08/21/2021 12:00:00 AM EDT 1.0 {tablet_as_needed} active HYDROcodone-Acetaminophen 5-325 MG eCW1 ([facility]) Sodium Phosphate, Dibasic 35.5 MG/ML / S odium Phosphate, Monobasic 96.4 MG/ML Enema Fleet Enema 08/07/2021 12:00:00 AM EDT activ e MEDENT ([facility]) Acetaminophen 325 MG / Hydrocodone Tiffanie trate 5 MG Oral Tablet HYDROcodone- Acetaminophen 5-325 MG HYDROcodone-Acetaminophen 5-325 MG 07/22/2021 12:00:00 AM EDT 1.0 {tablet_as_needed} active HYDROcodone-Acetaminophen 5-325 MG eCW1 ([facility]) Acetaminophen 325 MG / Hydrocodone Tiffanie trate 5 MG Oral Tablet HYDROcodone- Acetaminophen 5-325 MG HYDROcodone-Acetaminophen 5-325 MG 07/22/2021 12:00:00 AM EDT 1.0 {tablet_as_needed} active HYDROcodone-Acetaminophen 5-325 MG eCW1 ([facility]) Acetaminophen 325 MG / Hydrocodone Tiffanie trate 5 MG Oral Tablet HYDROcodone- Acetaminophen 5-325 MG HYDROcodone-Acetaminophen 5-325 MG 06/19/2021 12:00:00 AM EDT 1.0 {tablet_as_needed} active HYDROcodone-Acetaminophen 5-325 MG eCW1 ([facility]) BD Pen Needle/Mini/Ultra-Fine/31G X 5mm 05/26/2021 12:00:00 AM E DT active MEDENT ([facility]) Warfarin Sodium 10 MG Oral Tablet warfarin (COUMADIN) 10 MG tablet warfarin (COUMADIN) 10 MG tablet 05/08/2021 12:00:00 AM EDT 10 mg Oral active Take 10 mg by mouth daily As directed [facility] Acetaminophen 325 MG / Hydrocodone Tiffanie trate 5 MG Oral Tablet HYDROcodone- Acetaminophen 5-325 MG HYDROcodone-Acetaminophen 5-325 MG 04/17/2021 12:00:00 AM EDT 1.0 {tablet_as_needed} active HYDROcodone-Acetaminophen 5-325 MG eCW1 ([facility]) Acetaminophen 325 MG / Hydrocodone Tiffanie trate 5 MG Oral Tablet HYDROcodone- Acetaminophen 5-325 MG HYDROcodone-Acetaminophen 5-325 MG 04/17/2021 12:00:00 AM EDT 1.0 {tablet_as_needed} active HYDROcodone-Acetaminophen 5-325 MG eCW1 ([facility]) Acetaminophen 325 MG / Hydrocodone Tiffanie trate 5 MG Oral Tablet HYDROcodone- Acetaminophen 5-325 MG HYDROcodone-Acetaminophen 5-325 MG 04/17/2021 12:00:00 AM EDT 1.0 {tablet_as_needed} active HYDROcodone-Acetaminophen 5-325 MG eCW1 ([facility]) Acetaminophen 325 MG / Hydrocodone Tiffanie trate 5 MG Oral Tablet HYDROcodone- Acetaminophen 5-325 MG HYDROcodone-Acetaminophen 5-325 MG 04/17/2021 12:00:00 AM EDT 1.0 {tablet_as_needed} active HYDROcodone-Acetaminophen 5-325 MG eCW1 ([facility]) Acetaminophen 325 MG / Hydrocodone Tiffanie trate 5 MG Oral Tablet HYDROcodone- Acetaminophen 5-325 MG HYDROcodone-Acetaminophen 5-325 MG 04/17/2021 12:00:00 AM EDT 1.0 {tablet_as_needed} active HYDROcodone-Acetaminophen 5-325 MG eCW1 ([facility]) Acetaminophen 325 MG / Hydrocodone Tiffanie trate 5 MG Oral Tablet HYDROcodone- Acetaminophen 5-325 MG HYDROcodone-Acetaminophen 5-325 MG 04/17/2021 12:00:00 AM EDT 1.0 {tablet_as_needed} active HYDROcodone-Acetaminophen 5-325 MG eCW1 ([facility]) Acetaminophen 325 MG / Hydrocodone Tiffanie trate 5 MG Oral Tablet Hydrocodone- Acetaminophen 5-325 MG Hydrocodone-Acetaminophen 5-325 MG 03/25/2021 12:00:00 AM EDT 1.0 {tablet_as_needed} active Hydrocodone-Acetaminophen 5-325 MG eCW1 ([facility]) Acetaminophen 325 MG / Hydrocodone Tiffanie trate 5 MG Oral Tablet Hydrocodone- Acetaminophen 5-325 MG Hydrocodone-Acetaminophen 5-325 MG 02/25/2021 12:00:00 AM EDT 1.0 {tablet_as_needed} active Hydrocodone-Acetaminophen 5-325 MG eCW1 ([facility]) Pat [facility]#[id number] (60mg Syringe)1MG 02/25/2021 12:00:00 AM EDT completed MEDENT ([facility]) Medication administered onsite Acetaminophen 325 MG / Hydrocodone Tiffanie trate 5 MG Oral Tablet Hydrocodone- Acetaminophen 5-325 MG Hydrocodone-Acetaminophen 5-325 MG 01/23/2021 12:00:00 AM EDT 1.0 {tablet_as_needed} active Hydrocodone-Acetaminophen 5-325 MG eCW1 ([facility]) Acetaminophen 325 MG / Hydrocodone Tiffanie trate 5 MG Oral Tablet Hydrocodone- Acetaminophen 5-325 MG Hydrocodone-Acetaminophen 5-325 MG 01/23/2021 12:00:00 AM EDT 1.0 {tablet_as_needed} active Hydrocodone-Acetaminophen 5-325 MG eCW1 (Formerly [facility]) Nitroglycerin 0.4 MG Sublingual Tablet n itroglycerin (NITROSTAT) 0.4 MG SL tablet nitroglycerin (NITROSTAT) 0.4 MG SL tablet 01/20/2021 12:00:00 A M EDT 0.4 mg Sublingual active Benign essentia l hypertensionHyperlipidemia, unspecified hyperlipidemia typeCoronary artery disease due to calcified coronary lesionCardiomyopathy Place 1 tablet (0.4 mg total ) under the tongue every 5 (five) minutes as needed for chest pain [facility] Benign essential hypertension Hyperlipidemia, unspecified hyperlipidem ia [...] (five) minutes as needed for chest pain [facility] Benign essential hypertension Hyperlipidemia, unspecified hyperlipidem ia type Coronary artery disease due to calcified coronary lesion Cardiomyopathy Trazodone Hydrochloride 100 MG Oral Tablet traZODone ( DESYREL) 100 MG tablet traZODone (DESYREL) 100 MG tablet 01/02/2021 12:00:00 AM EST 1 {tbl} Oral active Take 1 tablet by mouth nightly [facility] fluticasone (FLONASE) 50 MCG/ACT nasal spray [id number] 12/31/2020 12:00:00 AM EST active SHAKE LIQUID AND USE 2 SPRAYS IN EACH NOSTRIL DAILY [facility] cefdinir 300 MG Oral Capsule cefdinir (OMNICEF) 300 MG capsule cefdinir (OMNICEF) 300 MG capsule 12/31/2020 12:00:00 AM EST 300 mg Oral aborted Take 300 mg by mouth 2 (two) times a day [facility] Acetaminophen 325 MG / Hydrocodone Tiffanie trate 5 MG Oral Tablet Hydrocodone- Acetaminophen 5-325 MG Hydrocodone-Acetaminophen 5-325 MG 12/26/2020 12:00:00 AM EST 1.0 {tablet_as_needed} active Hydrocodone-Acetaminophen 5-325 MG eCW1 (Formerly [facility]) Acetaminophen 325 MG / Hydrocodone Tiffanie trate 5 MG Oral Tablet Hydrocodone- Acetaminophen 5-325 MG Hydrocodone-Acetaminophen 5-325 MG 12/26/2020 12:00:00 AM EST 1.0 {tablet_as_needed} active Hydrocodone-Acetaminophen 5-325 MG eCW1 (Formerly [facility]) Acetaminophen 325 MG / Hydrocodone Tiffanie trate 5 MG Oral Tablet Hydrocodone- Acetaminophen 5-325 MG Hydrocodone-Acetaminophen 5-325 MG 12/26/2020 12:00:00 AM EST 1.0 {tablet_as_needed} active Hydrocodone-Acetaminophen 5-325 MG eCW1 (Formerly [facility]) Acetaminophen 325 MG / Hydrocodone Tiffanie trate 5 MG Oral Tablet Hydrocodone- Acetaminophen 5-325 MG Hydrocodone-Acetaminophen 5-325 MG 12/26/2020 12:00:00 AM EST 1.0 {tablet_as_needed} active Hydrocodone-Acetaminophen 5-325 MG eCW1 (Formerly [facility]) Acetaminophen 325 MG / Hydrocodone Tiffanie trate 5 MG Oral Tablet Hydrocodone- Acetaminophen 5-325 MG Hydrocodone-Acetaminophen 5-325 MG 12/26/2020 12:00:00 AM EST 1.0 {tablet_as_needed} active Hydrocodone-Acetaminophen 5-325 MG eCW1 (Formerly [facility]) Acetaminophen 325 MG / Hydrocodone Tiffanie trate 5 MG Oral Tablet Hydrocodone- Acetaminophen 5-325 MG Hydrocodone-Acetaminophen 5-325 MG 12/26/2020 12:00:00 AM EST 1.0 {tablet_as_needed} active Hydrocodone-Acetaminophen 5-325 MG eCW1 (Formerly [facility]) B-D UF III MINI PEN NEEDLES 31G X 5 MM [facility] [id number] 12/25/2020 12:00:00 AM EST active USE DIRECTED F OUR TIMES DAILY [facility] albuterol (PROVENTIL HFA;VENTOLIN HFA) 108 (90 Base) M CG/ACT inhaler [id number] 12/20/2020 12:00:00 AM EST 2 {puff} Inhalation active Inhale 2 puffs as needed [facility] Ondansetron 4 MG Disintegrating Oral Tab let ondansetron (ZOFRAN-ODT) 4 MG disintegrating tablet ondansetron (ZOFRAN-ODT) 4 MG disintegrating tablet 12/05/2020 12:00:00 AM EST aborted DISSOLVE 1 TABLET ON THE TONGUE THREE TIMES DAILY AND ALLOW TO DISSOLVE NEEDED FOR NAUSEA [facility] Methylprednisolone 4 MG Oral Tablet [Medrol] Medrol 06/2021 12:00:00 AM EST active MEDENT ( [facility]) Acetaminophen 325 MG / Hydrocodone Tiffanie trate 5 MG Oral Tablet Hydrocodone- Acetaminophen 5-325 MG Hydrocodone-Acetaminophen 5-325 MG 11/27/2020 12:00:00 AM EST 1.0 {tablet_as_needed} active Hydrocodone-Acetaminophen 5-325 MG eCW1 (Formerly [facility]) Acetaminophen 325 MG / Hydrocodone Tiffanie trate 5 MG Oral Tablet Hydrocodone- Acetaminophen 5-325 MG Hydrocodone-Acetaminophen 5-325 MG 11/27/2020 12:00:00 AM EST 1.0 {tablet_as_needed} active Hydrocodone-Acetaminophen 5-325 MG eCW1 (Formerly [facility]) Acetaminophen 325 MG / Hydrocodone Tiffanie trate 5 MG Oral Tablet Hydrocodone- Acetaminophen 5-325 MG Hydrocodone-Acetaminophen 5-325 MG 11/27/2020 12:00:00 AM EST 1.0 {tablet_as_needed} active Hydrocodone-Acetaminophen 5-325 MG eCW1 (Formerly [facility]) Acetaminophen 325 MG / Hydrocodone Tiffanie trate 5 MG Oral Tablet [[place]] [place] 5- 325 MG [place] 5-325 MG 11/26/2020 12:00:00 AM EST 1.0 {tablet_as_needed} active [place] 5-325 MG eCW1 (Formerly [facility]) Acetaminophen 325 MG / Hydrocodone Tiffanie trate 5 MG Oral Tablet [[place]] [place] 5- 325 MG [place] 5-325 MG 11/26/2020 12:00:00 AM EST 1.0 {tablet_as_needed} active [place] 5-325 MG eCW1 (Formerly [facility]) Warfarin Sodium 1 MG Oral Tablet warfarin (COUMADIN) 1 MG tablet warfarin (COUMADIN) 1 MG tablet 11/02/2020 12:00:00 AM EST 10 mg Oral aborted Take 10 mg by mouth daily [facility] Acetaminophen 325 MG / Hydrocodone Tiffanie trate 5 MG Oral Tablet [[place]] [place] 5- 325 MG [place] 5-325 MG 10/24/2020 12:00:00 AM EST 1.0 {tablet_as_needed} active [place] 5-325 MG eCW1 (Formerly [facility]) Acetaminophen 325 MG / Hydrocodone Tiffanie trate 5 MG Oral Tablet [[place]] [place] 5- 325 MG [place] 5-325 MG 10/24/2020 12:00:00 AM EST 1.0 {tablet_as_needed} active [place] 5-325 MG eCW1 (Formerly [facility]) Acetaminophen 325 MG / Hydrocodone Tiffanie trate 5 MG Oral Tablet [[place]] [place] 5- 325 MG [place] 5-325 MG 10/24/2020 12:00:00 AM EST 1.0 {tablet_as_needed} active [place] 5-325 MG eCW1 (Formerly [facility]) Pramipexole dihydrochloride 0.5 MG Oral Tablet pramipexole (MIRAPEX) 0.5 MG tablet pramipexole (MIRAPEX) 0.5 MG tablet 10/23/2020 12:00:00 AM EST 0.5 mg Oral active Take 0.5 mg by mouth 3 (three) times a day [facility] pantoprazole 40 MG Delayed Release Oral Tablet pantoprazole (PROTONIX) 40 MG tablet pantoprazole (PROTONIX) 40 MG tablet 10/07/2020 12:00:00 AM EST 40 mg Oral active Take 40 mg by mouth 2 (two) times a day [facility] sacubitril 24 MG / valsartan 26 MG Oral Tablet sacubitril-valsartan (ENTRESTO) 24-26 MG TABS sacubitril-valsartan (ENTRESTO) 24-26 MG TABS 09/29/20 12:00:00 AM EST 1 {tbl} Oral active Take 1 tablet by mouth daily [facility] Lidocaine 25 MG/ML / Prilocaine 25 MG/ML Topical Cream lidocaine-prilocaine (EMLA) cream lidocaine-prilocaine (EMLA) cream 09/25/2020 12:00:00 AM EST active APPLY SMALL PIYUSH UNT TO ACCESS SITE (AVF) 30 MINUTES BEFORE DIALYSIS. COVER WITH OCCLUSIVE DRESSING (SARAN WRAP) [facility] Acetaminophen 325 MG / Hydrocodone Tiffanie trate 5 MG Oral Tablet [[place]] [place] 5- 325 MG [place] 5-325 MG 09/23/2020 12:00:00 AM EST 1.0 {tablet_as_needed} active [place] 5-325 MG eCW1 (Formerly [facility]) valsartan 40 MG Oral Tablet valsartan (DIOVAN) 40 MG t ablet valsartan (DIOVAN) 40 MG tablet 09/18/2020 12:00:00 AM EST abort ed TAKE 1 TABLET(40 MG) BY MOUTH DAILY [facility] Ondansetron 4 MG Disintegrating Oral Tab let ondansetron (ZOFRAN-ODT) 4 MG disintegrating tablet ondansetron (ZOFRAN-ODT) 4 MG disintegrating tablet 09/08/2020 12:00:00 AM EST aborted DIS 1 T ON THE TONGUE TID PRF NAUSEA [facility] moxifloxacin 5 MG/ML Ophthalmic Solution moxifloxacin (VIGAMOX) 0.5 % ophthalmic solution moxifloxacin (VIGAMOX) 0.5 % ophthalmic solution 09/08 12:00:00 AM EST aborted INSTILL 1 GTT INTO RIGHT EYE QID START THREE DAYS PRIOR TO SURGERY. [facility] Prolia [facility]#[id number] (60mg Syringe)1MG 08/27/2020 12:00:00 AM EST completed MEDENT ([facility]) Medication administered onsite Acetaminophen 325 MG / Hydrocodone Tiffanie trate 5 MG Oral Tablet [[place]] [place] 5- 325 MG [place] 5-325 MG 08/23/2020 12:00:00 AM EDT 1.0 {tablet_as_needed} active [place] 5-325 MG eCW1 (Formerly [facility]) Acetaminophen 325 MG / Hydrocodone Tiffanie trate 5 MG Oral Tablet [[place]] [place] 5- 325 MG [place] 5-325 MG 08/23/2020 12:00:00 AM EDT 1.0 {tablet_as_needed} active [place] 5-325 MG eCW1 (Formerly [facility]) Acetaminophen 325 MG / Hydrocodone Tiffanie trate 5 MG Oral Tablet [[place]] [place] 5- 325 MG [place] 5-325 MG 08/23/2020 12:00:00 AM EDT 1.0 {tablet_as_needed} active [place] 5-325 MG eCW1 (Formerly [facility]) Acetaminophen 325 MG / Hydrocodone Tiffanie trate 5 MG Oral Tablet [[place]] [place] 5- 325 MG [place] 5-325 MG 08/23/2020 12:00:00 AM EDT 1.0 {tablet_as_needed} active [place] 5-325 MG eCW1 (Formerly [facility]) Acetaminophen 325 MG / Hydrocodone Tiffanie trate 5 MG Oral Tablet [[place]] [place] 5- 325 MG [place] 5-325 MG 08/23/2020 12:00:00 AM EDT 1.0 {tablet_as_needed} active [place] 5-325 MG eCW1 (Formerly [facility]) Aspirin 81 MG Delayed Release Oral Tablet aspirin EC 8 1 MG EC tablet aspirin EC 81 MG EC tablet 08/21/2020 12:00:00 AM EDT 81 mg Oral ac tive Take 1 tablet (81 mg total) by mouth daily [facility] Inveltys 1% Ophthalmic Suspension Inveltys 1% Ophthalmic Patsy pension 08/20/2020 12:00:00 AM EDT aborted loteprednol etabonate 10 MG/ML Ophthalmic Suspension [Inveltys] TY (Raven Hutchison MD [employer]) moxifloxacin 5 MG/ML Ophthalmic Solution Moxifloxacin HCl 0.5% Ophthalmic Solution Moxifloxacin HCl 0.5% Ophthalmic Solution 08/20/2020 12:00:00 AM EDT active moxifloxacin 5 MG/ML Oph thalmic Solution TY (Raven Hutchison MD [employer]) BromSite 0.075% Ophthalmic Solution BromSite 0.075% Ophthalm ic Solution 08/20/2020 12:00:00 AM EDT aborted bromfenac 0.75 MG/ML Ophthalmic Solution [Bromsite] TY (Raven Hutchison MD [employer]) Ketorolac Tromethamine 4 MG/ML Ophthalmi c Solution Ketorolac Tromethamine 0.4% Ophthalmic Solution Ketorolac Tromethamine 0.4% Ophthalmic Solution 2019 12:00:00 AM EDT active ketorolac tromethamine 4 MG/ML Ophthalmic Solution TY (Raven Hutchison MD [employer]) prednisolone acetate 10 MG/ML Ophthalmic Suspension [Pred Forte] Pred Forte 1% Ophthalmic Suspension Pred Forte 1% Ophthalmic Suspension 08/20/2020 12:00:0 0 AM EDT active predniso lone acetate 10 MG/ML Ophthalmic Suspension [Pred Forte] TY (Raven Hutchison MD [employer]) Donepezil hydrochloride 10 MG Oral Tablet donepezil (A RICEPT) 10 MG tablet donepezil (ARICEPT) 10 MG tablet 08/15/2020 12:00:00 AM EDT 10 mg Oral active Take 10 mg by mouth nightly [facility] Nitroglycerin 0.4 MG Sublingual Tablet n itroglycerin (NITROSTAT) 0.4 MG SL tablet nitroglycerin (NITROSTAT) 0.4 MG SL tablet 06/09/2019 12:00:00 A M EDT 0.[address] 1 t ablet (0.4 mg total) under the tongue every 5 (five) minutes as needed for chest pain [facility] Fluticasone Furoate (ARNUITY ELLIPTA) 50 MCG/ACT AEPB [id number] 02/06/2019 12:00:00 AM EDT 1 {puff} Inhalation aborted Inhale 1 p uff [facility] Isosorbide Dinitrate 30 MG Oral Tablet i sosorbide dinitrate (ISORDIL) 30 MG tablet isosorbide dinitrate (ISORDIL) 30 MG tablet 30 mg Oral aborted Take 30 mg by mouth 4 (four) times a day [facility] Fluticasone propionate 0.5 MG/ML Topical Cream fluticasone (CUTIVATE) 0.05 % cream fluticasone (CUTIVATE) 0.05 % cream ab orted FLUTICASONE PROPIONATE 0.05 % CREA [facility] Pramipexole dihydrochloride 0.125 MG Ora l Tablet pramipexole (MIRAPEX) 0.125 MG tablet pramipexole (MIRAPEX) 0.125 MG tablet 0.125 mg Oral aborted Take 0.125 mg by mouth 3 (three) times a day [facility] Warfarin Sodium 7.5 MG Oral Tablet warfarin (COUMADIN) 7.5 MG tablet warfarin (COUMADIN) 7.5 MG tablet 7.5 mg Oral aborted Take 7.5 mg by mouth daily [facility] Insurance Providers Payer name Policy type / Coverage type Policy ID Covered libertarian ID Covered libertarian's relationship to emerson Policy Emerson Plan Information Medicaid [place] Medigap Part B [id number] Self [id number] [id number] 988.0 Self [place] [id number] Self 0 [id number] [place] Med[place]ap [place] [id number] Self 0 [id number] [place] Med[place]ap [place] [id number] Self [id number] [place] Med[place]ap [place] [id number] Self [id number] [place] Med[place]ap [place] [id number] Self 0 [id number] [place] Med[place]ap [place] [id number] Self [employer] Medicare Commercial [id number] 2.0.1.357623.3.227.99.8646.8828.0 Self [id number] [employer] Medicare Commercial [id number] Self [id number] [employer] Medicare Commercial [id number] 2.0.1.109233.3.227.99.8646.8828.0 Self [id number] Medicaid [place] [id number] 988.0 Self [facility] [id number] 2.0.1.302838.3.227.99.991. 96131.0 Self [id number] [employer] Medigap Part B [id number]9.991.43067.0 Self [id number] [employer] Commercial [id number] Self [employer] Commercial [id number]9 .991.364226.0 Self [id number] [employer] Commercial [id number] Self [facility]) Workers Compensation [id number] 2.16.840.1.559253.3 .227.99.991.57744.0 Self [id number] [facility]) Workers Compensation [id number] 2.16.840.1.073506.3 .227.99.991.65216.0 Self [id number] [employer] [place] [id number] [place] [id number] [employer] Commercial [id number]9.991.109 88.0 Self [facility] [id number] 2.840.1.974051.3.227.99.991.76306.0 Self [id number] [facility] Options Medigap Part B [id number] 2.16840.1.043438.3.227.99.991.03847.0 Self 3 [id number] [employer] Commercial [id number] 2.16840.1.980644.3.227.99.991.1 0988.0 Self [id number] [employer] Commercial [id number] 2.16840.1.029525.3.227.99.991.1 0988.0 Self [id number] [facility] Options Medigap Part B [id number] 2.16840.1.361160.3.227.99.991.29477.0 Self [id number] [facility] Medigap Part B [id number] 2.16840.1.703753.3.227.99.991.35003.0 Self 3 [id number] [employer] Commercial [id number] 2.16840.1.257937.3.227.99.991.1 0988.0 Self [id number] [employer] Commercial [id number] 2.16.840.1.232855.3.227.99.991.1 0988.0 Self [id number] [facility] Options Medigap Part B [id number] 2.16.840.1.678389.3.227.99.991.20358.0 Self [id number] [employer] Commercial [id number] 2.16.840.1.024064.3.227.99.991.1 0988.0 Self [id number] [employer] [id number] SP [id number] [employer] [id number] SP [id number] [employer] [id number] SP [id number] [facility] MEDICARE [id number] xxxxxxxxx [id number] [facility] MEDICARE [id number] Shayy [id number] MEDICAID [id number] Shayy [id number] MEDICAID [id number] xxxxxxxx [id number] MEDICARE COMPLETE [id number] SP [id number] ANSI-Medicare Part B [id number] ANSI-Health Maintenance Organization ( O) [id number] ANSI-Medicare Part B [id number] ANSI-Health Maintenance Organization ( O) [id number] ANSI-Medicare Part B [id number] ANSI-Health Maintenance Organization ( O) [id number] ANSI-Medicare Part B [id number] ANSI-Medicare Part B [id number] ANSI-Health Maintenance Organization ( O) [id number] ANSI-Health Maintenance Organization ( O) [id number] ANSI-Medicare Part B [id number] [facility] ( O) [id number] ANSI-Medicare Part B [id number] [facility] [id number] SP [id number] ANSI-Medicare Part B [id number] ANSI-Health Maintenance Organization ( O) [id number] ANSI-Health Maintenance Organization ( O) [id number] ANSI-Medicare Part B [id number] ANSI-Medicare Part B [id number] ANSI-Health Maintenance Organization ( O) [id number] ANSI-Medicare Part B [id number] ANSI-Health Maintenance Organization ( O) [id number] [employer] [id number] SP [id number] ANSI-Health Maintenance Organization ( O) [id number] ANSI-Medicare Part B [id number] ANSI-Medicare Part B [id number] ANSI-Health Maintenance Organization ( O) [id number] ANSI-Medicare Part B [id number] ANSI-Health Maintenance Organization ( O) [id number] [employer] Medicare Commercial [id number] 2.16.840.1.805454.3.227.99.8646.8828.0 Self [id number] ANSI-Health Maintenance Organization ( O) [id number] ANSI-Medicare Part B [id number] ANS-Health Maintenance Organization ( O) [id number] ANSI-Medicare Part B [id number] ANS-Health Maintenance Organization ( O) [id number]-[id number]-[id number] ANSI-Medicare Part B [id number] ANSI-Health Maintenance Organization ( O) [id number] ANSI-Health Maintenance Organization ( O) [id number] ANSI-Health Maintenance Organization ( O) [id number] ANSI-Health Maintenance Organization ( O) [id number] ANSI-Health Maintenance Organization ( O) [id number]-f6ti-[id number] ANSI-Health Maintenance Organization ( O) [id number] ANSI-Health Maintenance Organization ( O) [id number] ANSI-Health Maintenance Organization ( O) [id number]-[id number] ANSI-Health Maintenance Organization ( O) [id number] ANSI-Health Maintenance Organization ( O) [id number]-[id number] ANSI-Health Maintenance Organization ( O) [id number] [employer] -O/P [id number] 18 [id number] [employer] -O/P [id number] 18 [id number] ANSI-Health Maintenance Organization ( O) [id number] 9f6771a7-96rq-14b7-sjra-7maf811zdxpe [facility] ( O) [id number]-02r5-mtp945t922hh [id number]-5259-328y-33x8-msu117b101vo [facility] m61vrsor-7527-56dw-7872-9i4zn0734ao7 z30dnxeq-7769-63du-5626-5m3bl9755gl7 [place] [place] [id number] SP [id number] [facility] 8rku973o-u315-1fk9-yex8-88j60629l64y 7ngh883a-s984-6mc3-aol4-47y00442f44w [facility]icare Part B 5c4907c9-wmvz-1442-u549-u1p41pn35565 3o9034n8-ovej-7079-y089-f5z34js70922 [facility] Part B mx8m3c86-0u45-2g02-2gyw-02b043m61sbg fe7q0n80-1i51-1u69-1uaa-98g603x13rma [facility]icare Part B 2817g4z9-0li5-734o-t252-8444mx4dw76r 5175n5y0-8pk1-593w-g971-1279oc1pt53k AN[facility]-Medicare Part B z87ea20h-5pvt-0n6v-v844-6835olg35s6s f28wj28x-1ait-5t5j-r172-3241was96x3g [facility]icare Part B [id number]-pj7t-uueb5998j4zp 1p242414-84t6-215q-ou5a-opvn6793q5rk [facility] [id number] SP [id number] AN[facility]-Medicare Part B 5wx5j8eq-3461-8248-4nar-k69479640356 9qu4b6wx-7242-6408-4hfp-p71633200693 AN[facility]icare Part B h508p3yx-u9d8-8yt6-3787-433s8c6rdyv5 i405r7uo-r7r6-8ur2-1789-647b0d3okdb5 AN[facility]icare Part B q899m698-0b3j-32np-393k-y768i7n8nm0e k973w185-9k5x-89ms-134z-i209x7o5au0x [facility]icare Part B aek71m03-bd90-33v8-6l71-0t862983po70 pqm82d29-gi30-62g0-8a43-5m904073zl09 AN[facility]-Medicare Part B 3594t5nb-44b6-71om-9xt0-3s3n84h8908t 6796i4zg-02y0-70id-8vd4-4n5b21i5870h AN[facility]icare Part B 9o68k03z-o87m-5742-7f4k-746r9p4119b4 7a13m83h-j22c-8437-8x1w-152c1t4609f2 AN[facility]icare Part B 91i3i6kt-878o-3p70-ud95-h27bc9k1s93d 35f1k9fc-460c-9i61-dt99-j53cn6w8x83s AN[facility]-Medicare Part B p6586961-4131-5s09-0y40-0wb052v9a998 v6600575-9894-2e92-1o64-6bt010j4c968 AN[facility]-Medicare Part B c83co5t6-7488-6465-6t2d-fs378np2830n u47di2i7-6679-5071-2f9a-yl218ho7196z AN[facility]icare Part B 3xx86208-41g0-19x0-832v-j0ubxgo89w40 3pn34167-75c8-15a8-376n-v2kqwdg94h45 AN[facility]-Medicare Part B mzl125do-3g8y-2gxs-7jxm-2h657s07u551 cqq598yg-9l3r-8tev-3paq-2z693e51e471 AN[facility]are Part B 2hor4s0j-u180-1745-4y2g-10x6n7qf3ffg 6fyu1t9p-d837-5624-8h8g-10f3h6jf0yzp AN[facility] Part B 13a5j35s-3v8w-1p73-397x-57j991859c4p 72h1h33d-1a4j-2m95-407b-32k008543h8k AN[facility]-Medicare Part B 8c360004-7x26-5k73-8dc2-o030522ut63f 9l807775-4j16-7c66-3jh9-z080502wa67g ANSI-Medicare Part B gp0c980b-4q10-470d-ak88-o016106n552o ox0n868o-9w10-793t-hs29-k751720q744i ANSI-Medicare Part B 2952296g-l652-4i18-22k5-o388sg56609x 8584913r-j857-0r46-60q4-x813qw34670b ANSI-Medicare Part B 69722905-7t45-4069-02is-6j77geq96955 44662217-8c69-6461-85bk-4h30dul40013 ANSI-Medicare Part B 009861bd-10c4-0697-q433-0b5pvjqv4792 760820zw-05k9-4171-g031-8s4wynqv5407 AN[facility]are Part B q58hp5v3-70dw-9460-753z-825bp78v5o35 k90qc1l6-87kd-2822-884z-453mq70m8p23 AN[facility]are Part B 89i7r7g5-777e-759p-94z2-9ckk953s13pd 25k1f3o4-996h-378g-55j1-9tvy563n32ye [facility] Part B 5g532997-ckm1-1ff6-0577-n95510h15741 0h828836-sxs5-2cy7-5730-v88557o64652 [facility] Part B 548xp48m-8n3j-278m-gd57-95142d638r65 189ih60j-4v9u-274i-yz09-15399u181l33 [facility] Part B 79i13jo5-3xqh-88nv-8a39-0c4kez1329xn 34i58tb8-7oiy-09ko-3a70-6b0zsq8880jr [facility] Part B 52w50bqx-75q7-444l-w988-1102o95cfi0f 00y22whn-64e3-057g-o212-4959b45ujb9g [facility] Part B 56fh52i1-54ui-6449-835k-f87a9g114kz0 14ik93y3-40yg-1690-229k-b73v2p688hr7 [facility] Part B [id number] ANSI-Medicare Part B [id number] ANSI-Medicare Part B [id number] ANSI-Medicare Part B [id number] [facility] [id number] ANSI-Medicare Part B [id number] ANSI-Medicare Part B [id number] TODAYS OPTIONS/[place] O [id number] S [id number] TODAYS OPTIONS [id number] SP [id number] TODAYS OPTIONS/[place] O [id number] S [id number] MEDICARE C [id number] S [id number] A TODAYS OPTION -O/P [id number] 18 [id number] TODAYS OPTIONS [id number] SP [id number] TODAYS OPTIONS [id number] SP [id number] Medicare [facility] Part B [id number] Self Medicaid [facility] Part B [id number] Self TODAYS OPTION-CLINIC [id number] 18 [id number] [place] [id number] SP [id number] M [id number] MEDICARE COMPLETE [id number] SP [id number] [place] [id number] SP [id number] P MEDICARE COMPLETE [id number] SP [id number] MEDICARE [id number] SP [id number] EMEDNY [id number] SP [id number] EMEDNY [id number] SP [id number] UNHC MEDICARE COMPLETE - O/P [id number] 18 [id number] UNHC MEDICARE COMPLETE - O/P . 18 . MEDICAID [id number] SP [id number] MEDICAID [id number] SP [id number] MEDICARE COMPLETE-UHC O [id number] S [id number] MEDICAID M [id number] S [id number] MEDICARE COMPLETE-UHC O [id number] S [id number] MEDICAID M [id number] S [id number] MEDICARE COMPLETE-UHC O [id number] S [id number] UNHC MEDICARE COMPLETE - CLINIC [id number] 18 [id number] C MEDICAID [id number] 18 [id number] P UHC COMMERCIAL HM [id number] 18 [id number] UH COMMERCIAL HM [id number] RHC MEDICARE PART A [facility] [id number] 18 [id number] MEDICARE [id number] SP [id number] A ANSI-Health Maintenance Organization ( O) [id number] ANSI-Medicare Part B [id number] ANSI-Medicare Part B [id number] ANSI-Health Maintenance Organization (HM O) [id number] ANSI-Health Maintenance Organization (HM O) [id number] ANSI-Medicare Part B [id number] ANSI-Health Maintenance Organization (HM O) [id number] ANSI-Medicare Part B [id number] ANSI-Medicare Part B [id number] ANS-Health Maintenance Organization ( O) [id number] [facility]-Health Maintenance Organization ( O) [id number] ANSI-Medicare Part B [id number] [facility]-Health Maintenance Organization ( O) [id number] ANSI-Medicare Part B [id number] [facility] ( O) [id number] ANSI-Medicare Part B [id number] ANSI-Health Maintenance Organization ( O) [id number] Problems, Conditions, and Diagnoses Code Display Name Description Problem Type Effective Dates Data Source(s) M10.9 Gout, unspecified Gout, unspecified Diagnosis 05/09/2021 08:03:51 AM EDT [facility] N18.6 End stage renal disease End stage renal disease Diagno sis 05/09/2021 08:03:51 AM EDT [facility] Z79.4 termite treater (current) use of insulin USP (cu rrent) use of insulin Diagnosis 05/09/2021 08:03:51 AM EDT [facility] E11.59 Type 2 diabetes mellitus with other circ ulatory complications Type 2 diabetes mellitus with other circ Diagnosis 05/09/2021 08:03:51 AM EDT [facility] N40.1 Benign prostatic hyperplasia with lower urinary tract symptoms Benign prostatic hyperplasia with lower Diagnosis 05/09/2021 08:03:51 AM EDT [facility] F32.9 Major depressive disorder, single episod e, unspecified Major depressive disorder, single episod Diagnosis 05/09/2021 08:03:51 AM EDT [facility] F41.9 Anxiety disorder, unspecified Anxiety disorder, unspec ified Diagnosis 05/09/2021 08:03:51 AM EDT [facility] I10 Essential (primary) hypertension Essential (primary) h ypertension Diagnosis 05/09/2021 08:03:51 AM EDT [facility] E78.5 Hyperlipidemia, unspecified Hyperlipidemia, unspecifie d Diagnosis 05/09/2021 08:03:51 AM EDT [facility] I25.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 Coronary atherosclerosis due to calcifie Diagnosis 05/09/2021 08:03:51 AM EDT [facility] 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 Atherosclerotic heart disease of tribal Diagnosis 05/09/2021 08:03:51 AM EDT [facility] I42.9 Cardiomyopathy, unspecified Cardiomyopathy, unspecifie d Diagnosis 05/09/2021 08:03:51 AM EDT [facility] Z86.718 Personal history of other venous thrombo sis and embolism Personal history of other venous thrombo Diagnosis 01/03/2021 08:16:35 AM [facility] R41.3 Other amnesia Other amnesia Diagnosis 01/03/2021 08:16:35 AM [facility] E87.5 Hyperkalemia Hyperkalemia Diagnosis 01/03/2021 08:16:35 A M [facility] J44.9 Chronic obstructive pulmonary disease, u nspecified Chronic obstructive pulmonary disease, u Diagnosis 01/03/2021 08:16:35 AM [facility] Z01.818 Encounter for other preprocedural examin ation Encounter for other preprocedural examin Diagnosis 10/16/2020 10:34:29 AM [facility] D50.9 Iron deficiency anemia, unspecified Iron deficie ncy anemia, unspecified Diagnosis 10/16/2020 10:34:29 AM [facility] Z99.2 Dependence on renal dialysis Dependence on renal dialy [facility] Diagnosis 10/16/2020 10:34:29 AM [facility] D63.1 Anemia in chronic kidney disease Anemia in chron ic kidney disease Diagnosis 10/16/2020 10:34:29 AM [facility] Z58922 Personal history of nicotine dependence Personal history of nicotine dependence Diagnosis 08/27/2020 04:44:00 PM [facility] A98730 Latex allergy status Latex allergy status Diagnosis 08/27/2020 04:44:00 PM [facility] 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 USP (cu rrent) use of aspirin Diagnosis 08/27/2020 04:44:00 PM [facility] Z992 Dependence on renal dialysis Dependence on renal dialy sis Diagnosis 08/27/2020 04:44:00 PM [facility] Z7901 USP (current) use of anticoagulant s USP (current) use of anticoagulants Diagnosis 08/27/2020 04:44:00 PM [facility] 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 disease Diagnosis 08/27/2020 04:44:0 0 PM [facility] J449 Chronic obstructive pulmonary disease, u nspecified Chronic obstructive pulmonary disease, unspecified Diagnosis 08/27/2020 04:44:00 PM [facility] 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 Diagnosis 08/27/2020 04:44:00 PM [facility] E7800 Pure hypercholesterolemia, unspecified P ure hypercholesterolemia, unspecified Diagnosis 08/27/2020 04:44:00 PM [facility] N186 End stage renal disease End stage renal disease Diagno sis 08/27/2020 04:44:00 PM [facility] M39027 Atherosclerosis of tribal ar teries of extremities with intermittent claudication, right leg Atherosclerosis of tribal arteries of ex tremities with intermittent claudication, right leg Diagnosis 08/27/2020 04:44:00 PM [facility] Y15112 Pain in right lower leg Pain in right lower leg Diagno sis 08/27/2020 04:44:00 PM [facility] F32.9 Major depression, single episode Major d epressive disorder, single episode, unspecified Problem 09/11/2021 12:00:00 AM EST eCW1 ([facility]) G89.29 [id number] Other chronic pain Problem 09/11/2021 12:00: 00 AM EST eCW1 ([facility]) E11.22 [id number] Type 2 diabetes claudio itus with diabetic chronic kidney disease, unspecified CKD stage, unspecified 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 Problem 07/10/2021 12:00:00 AM EDT eCW1 ([facility]) Z01.818 Pre-op evaluation Pre-op evaluation [id number] 10/16/2020 12:00:00 AM EST [facility] V43.1 Pseudophakia Pseudophakia Problem 09/12/2020 12:00:00 A M EST TY ([facility]) V43.1 Pseudophakia Pseudophakia Problem 09/12/2020 12:00:00 A M EST TY ([facility]) V43.1 Pseudophakia Pseudophakia Problem 09/12/2020 12:00:00 A M EST TY ([facility]) V43.1 Pseudophakia Pseudophakia Problem 09/12/2020 12:00:00 A M EST TY ([facility]) V43.1 Pseudophakia Pseudophakia Problem 09/12/2020 12:00:00 A M EST TY ([facility]) V43.1 Pseudophakia Pseudophakia Problem 09/12/2020 12:00:00 A M EST TY ([facility]) V43.1 Pseudophakia Pseudophakia Problem 09/12/2020 12:00:00 A M EST TY ([facility]) V43.1 Pseudophakia Pseudophakia Problem 09/12/2020 12:00:00 A M EST TY ([facility]) R41.3 Memory loss Memory loss [id number] 08/21/2020 12:00:00 AM EDT [facility] E87.5 Hyperkalemia Hyperkalemia [id number] 08/07/2020 12:00:00 A M EDT [facility] Surgeries/Procedures Procedure Description Date Indications Data Source(s) Amb Glucose Monitoring Interpretation And Report 09/02 12:00:00 AM EST [facility] ([facility] ) OFFICE OUTPATIENT VISIT 40 MINUTES 09/02/2021 12:00:00 AM EST [facility] ([facility]) THERAPEUTIC PROPHYLACTIC/DX INJECTION SUBQ/IM 09/02/20 21 12:00:00 AM EST [facility] ([facility]) Diabetic Foot Exam 08/26/2021 12:00:00 AM EDT [facility] ([facility]) OFFICE OUTPATIENT VISIT 25 MINUTES 08/26/2021 12:00:00 AM EDT [facility] ([facility], ) OFFICE OUTPATIENT VISIT 15 MINUTES 08/07/2021 12:00:00 AM EDT [facility] ([facility] ) ARTHROCENTESIS ASPIR&/INJECTION MAJOR JT/BURSA 021 12:00:00 AM EDT [facility] ([facility] ) Amb Glucose Monitoring Interpretation And Report 06/10 12:00:00 AM EDT [facility] ([facility] ) OFFICE OUTPATIENT VISIT 25 MINUTES 06/10/2021 12:00:00 AM EDT [facility] ([facility]) ARTHROCENTESIS ASPIR&/INJECTION MAJOR JT/BURSA 021 12:00:00 AM EDT [facility] ([facility] ) RADIOLOGIC EXAM KNEE COMPLETE 4/MORE VIEWS 04/17/2021 12:00:00 AM EDT [facility] ([facility]) OFFICE OUTPATIENT VISIT 15 MINUTES 04/17/2021 12:00:00 AM EDT [facility] ([facility] ) RADIOLOGIC EXAM KNEE COMPLETE 4/MORE VIEWS 04/17/2021 12:00:00 AM EDT [facility] ([facility]) Amb Glucose Monitoring Interpretation And Report 02/25 12:00:00 AM EDT [facility] ([facility]) THERAPEUTIC PROPHYLACTIC/DX INJECTION SUBQ/IM 02/26/20 21 12:00:00 AM EDT [facility] ([facility]) OFFICE OUTPATIENT VISIT 25 MINUTES 02/25/2021 12:00:00 AM EDT [facility] ([facility]) OFFICE OUTPATIENT VISIT 15 MINUTES 12/31/2020 12:00:00 AM EST [facility] ([facility]) MRI Upper Extremity Any Joint 12/17/2020 12:00:[address] [facility] ([facility] ) RADEX ELBOW COMPLETE MINIMUM 3 VIEWS 12/03/2020 12:00: 00 AM EST [facility] ([facility] ) OFFICE OUTPATIENT VISIT 25 MINUTES 12/03/2020 12:00:00 AM EST [facility] ([facility] ) Amb Glucose Monitoring Interpretation And Report 10/29 12:00:00 AM EST [facility] ([facility]) ECG ROUTINE ECG W/LEAST 12 LDS W/I&R <td>POCT AMB EKG</td><td>Routine</td><td>10/16/2020 12:03 PM EST</td><td> Coronary artery disease due to calcified coronary lesion Cardiomyopathy</td><td> </td> 10/16/2020 05:03:00 PM EST CardiomyopathyCoronary artery disease due to calcified coronary lesion [facility] Cardiomyopathy Coronary artery disease due to calcified coronary lesion OPH BMTRY PRTL COHER INTRFRMTRY IO LENS PWR CHARITY Ophtha lmic biometry - IOL Master with IOL calculation (26, LT) 10/10/2020 12:00:00 AM EST [facility] ([facility]) POCT AMB EKG <td>POCT AMB EKG</td><td>Rou shauna</td><td>09/29/2020 9:52 PM EST</td><td> Coronary artery disease due to calcified coronary lesion Cardiomyopathy</td><td> </td> 09/30/2020 02:52:00 AM EST CardiomyopathyCoronary artery disease due to calcified coronary lesion [facility] Cardiomyopathy Coronary artery disease due to calcified coronary lesion Extracapsular extraction of lens (procedure) History o f extracapsular cataract extraction PCIOL OD by Dr. Lim 09/05/2020 09/12/2020 12:00:00 AM EST TY ([facility]) OPH BMTRY PRTL COHER INTRFRMTRY IO LENS PWR CHARITY Ophtha lmic biometry - IOL Master with IOL calculation (Professional Comp., Left side) 09/12/2020 12:00:00 AM EST TY ([facility]) OPH BMTRY PRTL COHER INTRFRMTRY IO LENS PWR CHARITY Ophtha lmic biometry - IOL Master with IOL calculation (26, LT) 09/12/2020 12:00:00 AM EST [facility] ([facility]) Extracapsular cataract removal with intraocular lens i mplant (Right Side) Extracapsular cataract removal with intraocular lens implant (Right Side) 09/05/2020 12:00:00 AM EST T[facility] ([facility]) THERAPEUTIC PROPHYLACTIC/DX INJECTION SUBQ/IM 08/27/20 12:00:00 AM EST [facility] ([facility]) OPH BMTRY PRTL COHER INTRFRMTRY IO LENS PWR CHARITY Ophtha lmic biometry - IOL Master with IOL calculation (Right Side, WAIVER OF LIABILITY ON FILE (ABN)) 08/20/2020 12:00:00 AM EDT TY ([facility]) Intermediate Eye Exam Established Patient (Signi/Sep E denver. & Man.) Intermediate Eye Exam Established Patient (Signi/Sep Eval. & Man.) 08/20/2020 12:00:00 AM EDT TY ([facility]) ELECTROENCEPHALOGRAM W/REC AWAKE&ASLEEP 08/06/2020 12: 00:00 AM EDT [facility] ([facility] ) ELECTROENCEPHALOGRAM W/REC AWAKE&ASLEEP 08/06/2020 12: 00:00 AM EDT [facility] ([facility] ) Results ID Date Data Source [id number] 09/02/2021 03:27:00 PM EST [facility] ([facility]) Name Value Range Interpretation Code Description Data Esthela rce(s) Supporting Document(s) Glucose [Mass/volume] in Serum or Plasma 378 [facility] ([facility]) Hemoglobin A1c/Hemoglobin.total in Blood 8.6 [facility] ([facility]) ID Date Data Source [id number] 12/31/2020 05:50:00 PM EST [facility] Name Value Range Interpretation Code Description Data Esthela rce(s) Supporting Document(s) SARS-CoV-2 (COVID 19) NEGATIVE - SARS-CoV-2 (COVID19) [facility] This lab was ordered by [facility] a nd reported by [facility]. ID Date Data Source [id number] 11/23/2020 08:30:00 AM EST [facility] Name Value Range Interpretation Code Description Data Esthela rce(s) Supporting Document(s) SARS coronavirus 2 RNA Not Detected [facility] This lab was ordered by [facility] and reported by [facility]. ID Date Data Source [id number] 10/26/2020 09:00:00 AM EST [facility] Name Value Range Interpretation Code Description Data Esthela rce(s) Supporting Document(s) SARS coronavirus 2 RNA [facility] This lab was ordered by [facility] and reported by [facility]. ID Date Data Source [id number] 10/02/2020 10:53:00 AM EST [facility] Name Value Range Interpretation Code Description Data Esthela rce(s) Supporting Document(s) SARS coronavirus 2 RNA [Presence] in Res piratory specimen by BARI with probe detection [facility] This lab was ordered by [facility] a nd reported by [facility]. ID Date Data Source [id number] 09/28/2020 08:05:00 AM EST [facility] Name Value Range Interpretation Code Description Data Esthela rce(s) Supporting Document(s) SARS coronavirus 2 RNA [facility] This lab was ordered by [facility] and reported by [facility]. ID Date Data Source [id number] 08/31/2020 12:00:00 PM EST [facility] Name Value Range Interpretation Code Description Data Esthela rce(s) Supporting Document(s) SARS coronavirus 2 RNA [facility] This lab was ordered by [facility] and reported by [facility]. ID Date Data Source [id number] 08/29/2020 11:57:00 AM EST [facility] [address] [place] [address] PHONE: [phone] FAX: [phone] Name .................. : YONI Zacarias Acct Number.................. : [id number] ROOM. ................. : TR-07 Number ................... : [id number] Stay type ............. : E/R Discharge Date......... ... : 08/27/20 Admit Date ......... : 08/27/20 Admit Phys .................... : GISSEL NERI Date of ....... : 1950 Family Phys ................... : CLAYTON Sanchez Phone .................. : [phone] Age ................................ : 70 Film# .................. .:[id number] Sex ................................. : M Unsigned transcriptions are preliminary reports and do not represent a medical or legal document DOPPLER VENOUS BILAT LEG 66000 COMPLETE:08/27/20 18:54 ADB [id number] Reason(s): RLE pain and s welling, hx [...] via fax Copy for: EMERGENCY DEPT via dakotam Copy for: 710 MED REC DISCHARGED Page 1 of 1 Name Value Range Interpretation Code Description Data Esthela rce(s) Supporting Document(s) ID Date Data Source [id number] 08/28/2020 09:58:00 AM EST [facility] [address] [place] [address] PHONE: [phone] FAX: [phone] Name .................. : YONI Zacarias Acct Number.................. : [id number] ROOM. ................. : TR-07 Number ................... : [id number] Stay type ............. : E/R Discharge Date......... ... : 08/27/20 Admit Date ......... : 08/27/20 Admit Phys .................... : [facility] Date of ....... : 1950 Family Phys ................... : CLAYTON A Phone .................. : [phone] Age ................................ : 70 Film# .................. .:[id number] Sex ................................. : M Unsigned transcriptions are preliminary reports and do not represent a medical or legal document CHEST PORTABLE [id number] COMPLETE:08/27/20 19:46 BEM 65084 Reason(s): RLE pain and swelling, atraumatic PORTABLE CHEST X-RAY: HISTORY: Right lower extremity pain and swelling, atraumatic. FINDINGS: The cardiac and mediastinal silhouettes appear normal and the lungs are clear. The bones and soft tissues are normal. The upper abdomen is unremarkable. IMPRESSION: No acute disease identifiable. Electronically Reviewed and Signed By Imtiaz Dunbar MD , 08/28/20 09:58, [facility] Transcribe Initials: MIMI , Transcribe Date: 08/28/20 00:58, Dictation Date: Copy for: GISSEL Zacarias via fax Copy for: EMERGENCY DEPT via modem Copy for: 710 MED REC DISCHARGED Page 1 of 1 Name Value Range Interpretation Code Description Data Esthela rce(s) Supporting Document(s) ID Date Data Source [id number] 08/28/2020 09:57:00 AM EST [facility] [address] [place] [address] PHONE: [phone] FAX: [phone] Name .................. : YONI Zacarias Acct Number.................. : [id number] RO[facility]. ................. [facility] Number ................... : [id number] Stay type ............. : E/R Discharge Date......... ... : 08/27/20 Admit Date ......... : 08/27/20 Admit Phys .................... : GISSEL HALLE Date of ....... : 1950 Family Phys ................... : CLAYTON A Phone .................. : [phone] Age ................................ : 70 Film# .................. .:[id number] Sex ................................. : M Unsigned transcriptions are preliminary reports and do not represent a medical or legal document TIBIA-FIBULA AP & LAT RT [id number] COMPLETE:08/27/20 19:46 BE [id number] Reason(s): atraumatic lower leg swellin and pain RIGHT TIBIA AND FIBULA: FINDINGS: There are old healed fractures to the distal right tibial and fibular diaphysis. No acute fractures are seen. The articular surfaces are intact. IMPRESSION: Old healed fractures to the distal right tibial and fibular diaphysis. Electronically Reviewed and Signed By Imtiaz Dunbar MD , 08/28/20 09:58, [facility] Transcribe Initials: MIMI , Transcribe Date: 08/28/20 00:55, Dictation Date: Copy for: GISSEL Zacarias via fax Copy for: EMERGENCY DEPT via modem Copy for: 710 MED REC DISCHARGED Page 1 of 1 Name Value Range Interpretation Code Description Data Esthela rce(s) Supporting Document(s) ID Date Data Source [id number] 08/28/2020 09:54:00 AM EST [facility] [address] [place] [address] PHONE: [phone] FAX: [phone] Name .................. : YONI YOVANI Zacarias Acct Number.................. : [id number] ROOM. ................. : TR-07 Number ................... : [id number] Stay type ............. : E/R Discharge Date......... ... : 08/27/20 Admit Date ......... : 08/27/20 Admit Phys .................... : GISSEL NERI Date of ....... : 1950 Family Phys ................... : CLAYTON Sanchez Phone .................. : [phone] Age ................................ : 70 Film# .................. .:[id number] Sex ................................. : M Unsigned transcriptions are preliminary reports and do not represent a medical or legal document ANKLE COMPLETE RT [id number] COMPLETE:08/27/20 19:46 BEM 03056 Reaso n(s): Trauma/Injury RIGHT ANKLE X-RAY: FINDINGS: There are old healed fractures to the distal right tibial and fibular diaphysis. No acute fractures are seen. Superior calcaneal spurring is noted. IMPRESSION: Old healed fractures to the distal right tibia and fibula diaphysis. Electronically Reviewed and Signed By Imtiaz Dunbar MD , 08/28/20 09:54, [facility] Transcribe Initials: DZ , Transcribe Date: 08/28/20 00:53, Dictation Date: Copy for: GISSEL Zacarias via fax Copy for: [place] [facility] [place] for: 710 MED REC DISCHARGED Page 1 of 1 Name Value Range Interpretation Code Description Data Esthela rce(s) Supporting Document(s) ID Date Data Source [id number] 08/28/2020 09:54:00 AM EST [facility] [address] [place] [address] PHONE: [phone] FAX: [phone] Name .................. : YONI Zacarias Acct Number.................. : [id number] ROOM. ................. : TR-07 Number ................... : [id number] Stay type ............. : E/R Discharge Date......... ... : 08/27/20 Admit Date ......... : 08/27/20 Admit Phys .................... : GISSEL HALLE Date of ....... : 1950 Family Phys ................... : CLAYTON A Phone .................. : [phone] Age ................................ : 70 Film# .................. .:[id number] Sex ................................. : M Unsigned transcriptions are preliminary reports and do not represent a medical or legal document FOOT COMPLETE-[address] [place] [id number] COMPLETE:08/27/20 19:46 BE [id number] Reason(s): atraumatic foot, ankle, lower leg swelling [...] MD , 08/28/20 09:54, MRA Transcribe Initials: MIMI , Transcribe Date: 08/28/20 00:51, Dictation Date: Copy for: GISSEL Zacarias via fax Copy for: EMERGENCY DEPT via modem Copy for: 710 MED REC DISCHARGED Page 1 of 1 Name Value Range Interpretation Code Description Data Esthela rce(s) Supporting Document(s) ID Date Data Source [id number] 08/27/2020 04:44:00 PM EST [facility] 1 OrderSheet [facility] Emergency Department [address] [place] [address] Phone #: ext- [phone] 08/27/2020 16:42 Patient: YOVANI CASTILLO Sex: M : 1950 Age: 70yWEIGHT:78.9 kg (S) HEIGHT:69 inches (S) BMI:25.7ALLERGIES: Actos, capsacin, Crestor, Dapsone, Demerol, Dilantin, Gabapentin, Glucaphage, Latex,Levaquin, Lisinopril, Lyrica, Penicillins, Phenabarbitol, Requip, Tegratol, Triple antibiotic ointmentCHIEF COMPLAINT: pain, swelling, pain, swellingDIAGNOSIS: Intermittent claudication, Renal failure syndromeLAB ORDERSOrder Description Priority Entered Acknowledged InitialedBNP STAT 17:08 08/27/2020 17:11 Scott Trna; Ernestina MoraCBC w Diff STAT 17:08/27/2020 17:11 Scott Tran; Ernestina MoraCMP STAT 17:08 08/27/2020 17:11 Scott Tran; Ernestina MoraLactic Acid STAT 17:08 08/27/2020 17:11 Scott Tran; Ernestina MoraPT/PTT STAT 17:08 08/27/2020 17:11 Scott Tran; Ernestina MoraTroponin-T STAT 17:08 08/27/2020 17:11 Scott Tran; Ernestina MoraUrinalysis (Clean STAT 17:08/27/2020 17:40 Stefanie Tran) Scott DE OLIVEIRA; Ernetsina MoraDIAGNOSTIC STUDY ORDERSOrder Description Priority Entered Acknowledged [...] And STAT 17:08/27/2020 18:33 Cruz Tran OrderSheet [facility] Emergency Department [address] [place] [address] Phone #: ext- [phone] 08/27/2020 16:42 --- Patient: YOVANI CASTILLO Sex: [...] blanket 17:08 08/27/2020 17:11 Marc, 3 OrderSheet [facility] Emergency Department [address] [place] [address] Phone #: ext- [phone] 08/27/2020 16:42 Patient: YOVANI CASTILLO Sex: M : 1950 Age: 70y Scott DE OLIVEIRA; Ernestina MoraVitals every 15 17:08 08/27/2020 17:11 sherice Tran; Ernestina Mora[Electronically signed by Scott Chauhan (19:05 08/27/2020)][Electronically signed by Ernestina Tran R.N. (20:57 08/27/2020)][Electronically signed by Cali Greco (06:23 08/28/2020)][Electronically locked by Ernestina Tran R.N. (20:57 08/27/2020)] Name Value Range Interpretation Code Description Data Esthela rce(s) Supporting Document(s) ID Date Data Source [id number] 08/27/2020 04:44:00 PM EST [facility] 1 Medication Reconciliation Report [facility] Emergency Department [address] [place] [address] Phone #: ext- [phone] 08/27/2020 16:42 Patient: YOVANI CASTILLO Sex: M : 1950 Age: 70yWeight: 78.9 [...] 3x a day, 7units/5units/7 units Procrit Injection (05661 unit/mL) 1 ml S/C, monthly 2 Medication Reconciliation Report [facility] Emergency Department [address] [place] [address] Phone #: ext- [phone] 08/27/2020 16:42 Patient: [...] rce(s) Supporting Document(s) ID Date Data Source [id number] 08/27/2020 04:44:00 PM EST [facility] 1 Medication Administration Record [facility] Emergency Department [address] [place] [address] Phone #: ext- [phone] 08/27/2020 16:42 Patient: YOVANI CASTILLO Sex: M : 1950 Age: 70yWeight: 78.9 [...] o2 sat > 90%, HIGH ALERTWalErnestina clarke RCtN. Site: #1 left AC MEDICATION)Given VICODIN (5-325MG) [PO] Vicodin (5-325mg) PO 1 tab (HIGH20:23 08/27/2020 (ACETAMINOPHEN-HYDROCODONE) ALERT MEDICATION)Ernestina Tran R.NCt Dose: 1 tab Tablets PO Name Value Range Interpretation Code Description Data Esthela rce(s) Supporting Document(s) ID Date Data Source [id number] 08/27/2020 04:44:00 PM EST [facility] 1 General Instructions [facility] Emergency Department [address] [place] [address] Phone #: ext- [phone] 08/27/2020 16:42 Patient: YOVANI CASTILLO Sex: M : 1950 Age: 70y(Electronically signed by YENNIFER Patiño 08/27/2020 19:05)Claudication of the right lower extremity with atherosclerosis of the tribal arteries in the right lowerextremity.Severe chronic renal [...] a day, 7units/5units/7 units. 2 General Instructions [facility] Emergency Department [address] [place] [address] Phone #: ext- [phone] 08/27/2020 16:42 Patient: YOVANI CASTILLO Sex: M : 1950 Age: 70yProcrit Injection : Solution 81025 unit/mL, 1 ml S/C monthly.Tamsulosin HCl Oral [...] Family history of PAD 3 General Instructions [facility] Emergency Department [address] [place] [address] Phone #: ext- [phone] 08/27/2020 16:42 [id number] Sex: M : 1950 Age: 70ySymptomsMany people [...] infection from these problems. 4 General Instructions [facility] Emergency Department [address] [place] [address] Phone #: ext- [phone] 08/27/2020 16:42 Patient: [facility]ILLO [id number] Sex: M : 1950 Age: 70yFollow-up careFollow [...] with no known cause 5 General Instructions [facility] Emergency Department [address] [place] [address] Phone #: [phone] 08/27/2020 16:42 Patient: YOVANI CASTILLO Sex: M : 1950 Age: 70y [id number] [employer]. [address] [place] [address]. All rights reserved. This information is not [...] (vasculitis), andpast viral or bacterial infections. Certain oqau-ctd-ipbblqs pain medicines can cause renal failurewhen taken [...] more information, visit the following links: o www.smokefree.gov/sites/default/files/pdf/dnksmbye-wxc-wgx-accessible.pdf o www.smokefree.gov o www.cancer.org/healthy/stayawayfromtobacco/guidetoquittingsmoking/ Most people with CKD need to follow a special diet. Be sure you understand yours. In 6 General Instructions [facility] Emergency Department [address] [place] [address] Phone #: ext- [phone] 08/27/2020 16:42 Patient: [...] reduced or stopped. Don't use the following vfwh-qtn-kmasyak medicines, or consult your healthcare provider before [...] Contact one of the following for moreinformation: [place] [employer] [phone] www.aakp.org National Kidney Foundation [phone] www.kidney.org [employer] [employer] [phone] www.kidneyfund.org National Kidney Disease Education Program 866-4KIDNEY www.nkdep.nih.govIf an X-ray, ECG (cardiogram), or other diagnostic test was taken, you will be told of any new findingsthat may affect your care.Call [phone] if you have any of the following: Severe weakness, dizziness, fainting, drowsiness, or confusion Chest pain or shortness of breath 7 General Instructions [facility] Emergency Department [address] [place] [address] Phone #: [phone] 08/27/2020 16:42 Patient: YOVANI CASTILLO Sex: M [...] the eyes Decrease or absent urine output 8720-6744 [employer] [address] [place] [address], [place] [address]. All rights reserved. This information is not intended as asubstitute for professional medical care. Always follow your healthcare professional's instructions. You have been given the following additional information: Peripheral Artery Disease (PAD) Chronic Kidney Disease (CKD)(Electronically signed by YENNIFER Hightower 08/28/2020 06:23) Name Value Range Interpretation Code Description Data Esthela rce(s) Supporting Document(s) ID Date Data Source [id number] 08/27/2020 04:44:00 PM EST [facility] 1 Clinical Report - Nurses [facility] Emergency Department [address] [place] [address] Phone #: ext- [phone] 08/27/2020 16:42 Patient: [...] lying down. 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 (few hours ago).SEPSIS SCREEN: SIRS Screen negative. Sepsis Screen negative. No suspected or confirmed signs ofinfection present. --16:52 08/27/20 Liya Walter, ETIENNE16:42 08/27/20. BP: 122/50. MAP: 74. HR: 58. [...] a day (7units/5units/7 units). Procrit Injection (Solution 61810 unit/mL) 1 ml S/C, monthly. Tamsulosin HCl [...] Walter RN. 2 Clinical Report - Nurses [facility] Emergency Department [address] [place] [address] Phone #: ext- [phone] 08/27/2020 16:42 Patient: [facility]ILL[id number] Sex: M : 1950 Age: 70yAllergiesActos. (edema)capsacin. [...] the [place] 3 Clinical Report - Nurses [facility] Emergency Department [address] [place] [address] Phone #: ext- [phone] 08/27/2020 16:42 Patient: [...] warning. Verbalizes understanding. --17:16 08/27/20 Ernestina Tran R.N. 17:41 08/27/2020 Site #1 started via IV in the left antecubital space with an 20g angiocath, with aseptic technique and good blood return; one attempt. Blood drawn: rainbow set and green tube(s). Labeled in the presence of the patient and sent to the lab. Saline lock flushed with 10 mL saline. --17:41 08/27/20 Esperanza Tran Clinical Report - Nurses [facility] Emergency Department [address] [place] [address] Phone #: ext- [phone] 08/27/2020 16:42 Patient: [...] R.N. ( Provider WS on phone with [facility] regarding possible transfer.). --20:12 08/27/20 Elizabeth Ospina [...] The patient was discharged by the physician information technology assistant. He was discharged home and accompanied by spouse. He left ambulatory and via private vehicle. Spouse driving. --20:54 08/27/20 Ernestina Tran R.N. 20:50 08/27/20. BP: 127/67. MAP: 87. HR: 62. RR: 20. O2 saturation: 100%. Temp: 98.8 F. Pain level now: 04/03. --20:54 08/27/20 Ernestina Tran R.N. 5 Clinical Report - Nurses [facility] Emergency Department [address] [place] [address] Phone #: ext- [phone] 08/27/2020 16:42 Patient: YOVANI CASTILLO Sex: M : 1950 Age: 70 yLocked/Released at 08/27/2020 20:57 by Ernestina Tran R.N. Name Value Range Interpretation Code Description Data Esthela rce(s) Supporting Document(s) ID Date Data Source [id number] 08/27/2020 04:44:00 PM EST [facility] 1 Clinical Report - Physicians/Mid Levels [facility] Emergency Department [address] [place] [address] Phone #: ext- [phone] 08/27/2020 16:42 Patient: YOVANI CASTILLO Sex: M : 1950 Age: 70y Time Seen: 16:52 08/27/2020. Arrived- By private vehicle. Historian- patient.HISTORY OF PRESENT ILLNESS Chief Complaint: LOWER EXTREMITY PAIN and SWELLING and ; ;(R foot pain, swelling, atraumatic.). (Pt states he awoke this am with atraumatic RLE, (leg, ankle and foot) swelling and pain, has CKD, had dialysis in [place] yesterday, hx of prior DVT, on coumadin. [...] Neuropathy. 2 Clinical Report - Physicians/Mid Levels [facility] Emergency Department [address] [place] [address] Phone #: ext- [phone] 08/27/2020 16:42 Patient: [facility]ILL[id number] Sex: M D OB: 1950 Age: 70yHypertension.Heart [...] 3x a day (7units/5units/7 units).Procrit Injection (Solution 33082 unit/mL) 1 ml S/C, monthly.Tamsulosin HCl Oral (Capsule 0.4 mg) 1 capsule, daily at bedtime.Vitamin D2 Oral (Tablet 2000 unit) 1 tablet, daily.Allergies:Actos. (edema)capsacin. ("excessive burning")Crestor. (headache)Dapsone. (anemia)Demerol.(itching)Dilantin.(Anaphylaxis)Ga bapentin.Glucaphage.(rash)Latex.Levaquin. (headache)Lisinopril.(rash)Lyrica.Penicillins.(itching)Phenabarbitol.(Anaphylaxi s)Requip. (elevated liver enzymes ) 3 Clinical Report - Physicians/Mid Levels [facility] Emergency Department [address] [place] [address] Phone #: ext- [phone] 08/27/2020 16:42 Patient: [...] Technique: 4 Clinical Report - Physicians/Mid Levels [facility] Emergency Department [address] [place] [address] Phone #: ext- [phone] 08/27/2020 16:42 Patient: [facility]ILLO [id number] Sex: M : 1950 Age: 70ygood. The [...] sonography. The exam was performed by a radiation protection technician. The study wasindependently viewed by me [...] PANEL 5 Clinical Report - Physicians/Mid Levels [facility] Emergency Department [address] [place] [address] Phone #: ext- [phone] 08/27/2020 16:42 Patient: [...] Male GFR Interprentation 20-49 yrs >60 mL/min Cthilm00-70 yrs >56 mL/min Normal 60-69 yrs >49 mL/min Normal 70-79yrs>42 mL/min Normal 80 and above >35 mL/min Normal Female GFRInterpretation 20-39 yrs >60 mL/min Normal 40-49 yrs >58 mL/minNormal 50-59 yrs >51 mL/min Normal 60-69 yrs >45 mL/min Squeqo29-24 yrs >39 mL/min Normal 80 and above >32 mL/min NormalLactic Acid: (CELESTINO: 08/27/2020 17:00) ( MsgRcvd 08/27/2020 17:26) Final results Test Result Flag Units (Reference) LACTIC ACID 1.9 MMOL/L (0.2 - 2.2)PT/PTT: (CELESTINO: 08/27/2020 17:00) ( MsgRcvd 08/27/2020 17:42) Final re sults Test Result Flag Units (Reference) PROTIME 37.6 H SECONDS (11.0 - 15.5) INR 3.74 H (0.93 - 1.23) PTT 45.2 H SECONDS (24.8 - 36.7) \\BLDo\\INR INTERPRETATION\\BLDx\\ Therapeutic range for Coumadin andrelated oral anticoagulants. -International Normalized Ratio (INR): 2.0 - 3.0 for VenousThrombosis, Pulmonary Embolus, Tissue heart valves, Acute [place] Atrial Fibrillation, Valvular heart diseaseand recurrent Systemic Embolism. -International Normalized Ratio (INR): 2.5 - 3.5 forMechanical Prosthetic valve.Troponin-T: (CELESTINO: 08/27/2020 17:00) ( OhgRcvd 08/27/2020 17:49) Final results Test Result Flag Units (Reference) TROPONIN T 0.11 HH NG/ML (0.00 - 0.10) CALL/ READ BACK LIYA IN ED BY: DANIELLE DATE/TIME [id number] TROPONIN T0.1 ng/ml Recommended as the clinical threshold value forTroponin T.Urinalysis: (CELESTINO: 08/27/2020 17:37) ( OhgRcvd 08/27/2020 17:56) Final results 6 Clinical Report - Physicians/Mid Levels [facility] Emergency Department [address] [place] [address] Phone #: ext- [phone] 08/27/2020 16:42 Patient: [...] and pain, has CKD, had dialysis in [place] yesterday, hx of prior DVT, on coumadin. Denies SOB, chest pain, other constitutional symptoms.). Not 7 Clinical Report - Physicians/Mid Levels [facility] Emergency Department [address] [place] [address] Phone #: ext- [phone] 08/27/2020 16:42 Patient: YOVANI CASTILLO Sex: M [...] Medications: 8 Clinical Report - Physicians/Mid Levels [facility] Emergency Department [address] [place] [address] Phone #: ext- [phone] 08/27/2020 16:42 Patient: [...] a day (7units/5units/7 units). Procrit Injection (Solution 25866 unit/mL) 1 ml S/C, monthly. Tamsulosin HCl [...] EXAM 9 Clinical Report - Physicians/Mid Levels [facility] Emergency Department [address] [place] [address] Phone #: ext- [phone] 08/27/2020 16:42 Patient: [...] LAD, incomplete RBB, no other significant changes 3019). The study has been interpreted contemporaneously by [...] 08/27/2020. 10 Clinical Report - Physicians/Mid Levels [facility] Emergency Department [address] [place] [address] Phone #: ext- [phone] 08/27/2020 16:42 Patient: YOVANI CASTILLO Sex: M : 1950 Age: 70yLower Extremity Sonography: Negative exam on the right and left side. No evidence of DVT. Studytype: utilized duplex sonography. The exam was performed by a radiation protection technician. The study wasindependently viewed by me and interpreted by the radiologist and contemporaneously by me.Interpretation time: 18:13 08/27/2020.Laboratory Tests: Laboratory tests have been ordered, with results reviewed and considered in themedical decision making process.BNP: (CELESTINO: 08/27/2020 17:00) ( MsgRcvd 08/27/2020 19:38) Final results Test Result Flag Units (Reference) BNP 45774 H PG/ML (0 - 125)CBC w Diff: [...] DANIELLE Higgins Clinical Report - Physicians/Mid Levels [facility] Emergency Department [address] [place] [address] Phone #: ext- [phone] 08/27/2020 16:42 Patient: YOVANI CASTILLO Sex: M : 1950 Age: 70y DATE/TIME [id number]/1748 BUN/CREAT 9 (8 - 27) TOTAL PROTEIN [...] Male GFR Interprentation 20-49 yrs >60 mL/min Klfood44-89 yrs >56 mL/min Normal 60-69 yrs >49 mL/min Normal 70-79yrs>42 mL/min Normal 80 and above > 35 mL/min Normal Female GFRInterpretation 20-39 yrs >60 mL/min Normal 40-49 yrs >58 mL/minNormal 50-59 yrs >51 mL/min Normal 60-69 yrs >45 mL/min Oxjirc68-77 yrs >39 mL/min Normal 80 and above [...] VenousThrombosis, Pulmonary Embolus, Tissue heart valves, Acute [place] Atrial Fibrillation, Valvular heart diseaseand recurrent Systemic Embolism. -International Normalized Ratio (INR): 2.5 - 3.5 forMechanical Prosthetic valve.Troponin-T: (CELESTINO: 08/27/2020 17:00) ( MsgRcvd 08/27/2020 17:49) Final results Test Result Flag Units (Reference) TROPONIN T 0.11 HH NG/ML (0.00 - 0.10) CALL/ READ BACK LIYA IN ED BY: DANIELLE DATE/TIME [id number]/6695 TROPONIN T0.1 ng/ml Recommended as the clinical threshold value forTroponial T.Urinalysis: (CELESTINO: 08/27/2020 17:37) ( MsgRcvd 08/27/2020 17:56) Final results * *Test Result Flag Units (Reference) URINALYSIS URINALYSIS SOURCE Cath Spec COLOR yellow (NORMAL: Yello CLARITY clear (NORMAL: Clear SPEC GRAVITY 1.010 (1.001 - 1.030 pH 7 (5 - 9) 12 Clinical Report - Physicians/Mid Levels [facility] Emergency Department [address] [place] [address] Phone #: ext- [phone] 08/27/2020 16:42 Patient: YOVANI CASTILLO Sex: M [...] observation and returning to department. (Discussed pt wijones Rider at [facility] and he feels pt is safe to discharge home and have outpatient dialysis tomorrow as scheduled. Pt and family are agreeable with dx and tx plan.). Patient and spouse counseled in person regarding the patient's stable condition, test results, diagnosis and 13 Clinical Report - Physicians/Mid Levels [facility] Emergency Department [address] [place] [address] Phone #: ext- [phone] 08/27/2020 16:42 Patient: YOVANI CASTILLO Sex: M : [birth year] Age: 70y need for follow-up. Patient and spouse agrees with plan of care. 20:15 Aug 27 2020. 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 Severe [...] day, 7units/5units/7 units. Procrit Injection : Solution 27067 unit/mL, 1 ml S/C monthly. Tamsulosin HCl [...] patient. 14 Clinical Report - Physicians/Mid Levels [facility] Emergency Department [address] [place] [address] Phone #: ext- [phone] 08/27/2020 16:42 Patient: OYVANI CASTILLO Sex: M : 1950 Age: 70y(Electronically signed by YENNIFER Hightower 08/28/2020 06:23) Name Value Range Interpretation Code Description Data Esthela rce(s) Supporting Document(s) ID Date Data Source [id number] 08/27/2020 05:55:00 PM [facility] Name Value Range Interpretation Code Description Data Esthela rce(s) Supporting Document(s) URINALYSIS [facility] NORMAL: Yellow [facility] ospital CLARITY clear NORMAL: Clear [facility] spital Specific gravity of Urine by Test strip 1.010 1.001 - 1.030 [facility] pH 7 5 - 9 [facility] al Glucose [Mass/volume] in Urine by Test strip 250 NORMAL: Negat [facility] Bilirubin.total [Presence] in Urine by Test strip NEG NORMAL: Negative [facility] Ketones [Presence] in Urine by Test strip NEG NORMAL: Negative [facility] Protein [Mass/volume] in Urine by Test strip 500 NORMAL: Negat [facility] Nitrite [Presence] in Urine by Test strip NEG NORMAL: Negative [facility] BLOOD 50 NORMAL: Negative [facility] Leukocyte esterase [Presence] in Urine by Test strip 25 ARMEN L: Negative [facility] Urobilinogen [Mass/volume] in Urine by Test strip NOR less sebastián n 1.0 mg/dL [facility] MICROSCOPIC See Below [facility] WBC 3 - 5 NORMAL: NONE SEEN [facility] Erythrocytes [#/volume] in Urine by Test strip 3 - 5 NORMAL: NON E SEEN [facility] EPITHELIAL FEW NORMAL: NONE SEEN [facility] Mucus [Presence] in Urine sediment by Light microscopy Trace NORMAL: NONE SEEN [facility] ID Date Data Source [id number] 08/27/2020 07:38:00 PM [facility] Name Value Range Interpretation Code Description Data Esthela rce(s) Supporting Document(s) BNP 43012 PG/ML 0 - 125 [facility] ID Date Data Source [id number] 08/27/2020 05:48:00 PM [facility] Name Value Range Interpretation Code Description Data Esthela rce(s) Supporting Document(s) TROPONIN T 0.11 NG/ML 0.00 - 0.10 [facility] spital CALL/ READ BACK LIYA IN ED [facility] BY: DANIELLE [facility] DATE/TIME [facility] TROPONIN T0.1 ng/ml Recommended as the c linical threshold value Jackiejenaro YessicaCt ID Date Data Source [id number] 08/27/2020 05:45:00 PM EST [facility] Name Value Range Interpretation Code Description Data Esthela rce(s) Supporting Document(s) COMPREHENSIVE METABOLIC PANEL [facility] COMPREHENSIVE METABOLIC PANEL Sodium [Moles/volume] in Serum or Plasma 134 mEq/L 134 - 153 [facility] Potassium [Moles/volume] in Serum or Plasma 5.0 mEq/L 3.6 - 5.0 [facility] Chloride [Moles/volume] in Serum or Plasma 93 mEq/L 98 - 107 L [facility] Carbon dioxide, total [Moles/volume] in Serum or Plasma 29 MEQ/L 22 - 30 [facility] Glucose [Mass/volume] in Serum or Plasma 119 MG/DL 65 - 110 H [facility] BUN 59 MG/DL 7 - 21 [facility] Creatinine [Mass/volume] in Serum or Plasma 6.6 MG/DL 0.7 - 1.5 [facility] CALL/ READ BACK LIYA IN ED [facility] BY: DANIELLE [facility] DATE/TIME [facility] BUN/CREAT 9 8 - 27 [facility] Protein [Mass/volume] in Serum or Plasma 6.7 G/DL 6.3 - 8.2 [facility] Albumin [Mass/volume] in Serum or Plasma 4.2 G/DL 3.9 - 5.0 [facility] Globulin [Mass/volume] in Serum by calculation 2.5 GM/DL 2.4 - 3.2 [facility] A/G RATIO 1.7 0.8 - 2.0 [facility] Calcium [Mass/volume] in Serum or Plasma 9.2 MG/DL 8.4 - 10.2 [facility] Bilirubin.total [Mass/volume] in Serum or Plasma <0.7 MG/DL 0.2 - 1.3 [facility] Alkaline phosphatase [Enzymatic activity/volume] in Serum or Plasma 89 U/L 38 - 126 [facility] Aspartate aminotransferase [Enzymatic activity/volume] in Serum or Plasma 22 U/L 5 - 40 [facility] Alanine aminotransferase [Enzymatic activity/volume] in Seru m or Plasma 22 U/L 7 - 56 [facility] Anion gap 3 in Serum or Plasma 12.0 mmol/L 8.0 - 16.0 [facility] AGE 70 yrs [facility] NON-AA GFR 9 mL/min [facility] AFR AMER GFR 11 mL/min [facility] Male GFR In terprentation 20-49 [...] >32 mL/min Normal ID Date Data Source [id number] 08/27/2020 05:42:00 PM EST [facility] Name Value Range Interpretation Code Description Data Esthela rce(s) Supporting Document(s) Prothrombin time (PT) 37.6 SECONDS 11.0 - 15.5 [facility] INR in Platelet poor plasma by Coagulation assay 3.74 0.93 - 1. 23 H [facility] aPTT in Blood by Coagulation assay 45.2 SECONDS 24.8 - 36.7 H [facility] \\BLDo\\INR INTERPRETATION\\BLDx\\ Therapeutic range for Coumadin and related oral anticoagulants. - International Normalized Ratio (INR): 2.0 - 3.0 for Venous Thrombosis, Pulmonary Embolus, Tissue heart valves, Acute [place] Atrial Fibrillation, Valvular heart disease and recurrent Systemic Embolism. - International Normalized Ratio (INR): 2.5 - 3.5 for Mechanical Prosthetic valve. ID Date Data Source [id number] 08/27/2020 05:31:00 PM [facility] Name Value Range Interpretation Code Description Data Esthela rce(s) Supporting Document(s) CBC W/AUTOMATED DIFF [facility] COMPLETE BLOOD COUNT Leukocytes [#/volume] in Blood by Automated count 8.8 10^3/uL 4.2 - 1 1.0 [facility] Erythrocytes [#/volume] in Blood by Automated count 3.11 10^6/uL 4. 50 - 6.30 L [facility] Hemoglobin [Mass/volume] in Blood 10.4 g/dL 14.0 - 16.0 L [facility] Hematocrit [Volume Fraction] of Blood by Automated count 30.9 % 4 1.0 - 51.0 L [facility] Erythrocyte mean corpuscular volume [Entitic volume] by Auto mated count 99.4 fL 80.0 - 94.0 H [facility] Erythrocyte mean corpuscular hemoglobin [Entitic mass] by Automated count 33.4 pg 27.0 - 34.0 [facility] Erythrocyte mean corpuscular hemoglobin concentration [Mass/volume] by Automated count 33.7 g/dL 31.0 - 36.0 [facility] Erythrocyte distribution width [Ratio] by Automated count 15.7 % 11.5 - 14.8 H [facility] Platelets [#/volume] in Blood by Automated count 217 10^3/uL 150 - 45 0 [facility] Platelet mean volume [Entitic volume] in Blood by Automated count 9.0 fL 7.4 - 10.4 [facility] Neutrophils/100 leukocytes in Blood by Automated count 72.2 % 37. 0 - 80.0 [facility] Lymphocytes/100 leukocytes in Blood by Manual count 14.1 % 25.0 - 40.0 L [facility] Monocytes/100 leukocytes in Blood by Automated count 11.0 % 3.0 - 8.0 H [facility] Eosinophils/100 leukocytes in Blood by Automated count 1.8 % 0.0 - 7.0 [facility] Basophils/100 leukocytes in Blood by Automated count 0.6 % 0.0 - 2.0 [facility] %[facility] 0[facility]3 [facility].0 - 0.0 [facility] al Neutrophils [#/volume] in Blood by Automated count 6.36 10^3/uL 2.00 - 6.90 [facility] Lymphocytes [#/volume] in Blood by Automated count 1.24 10^3/uL 0.60 - 3.40 [facility] Monocytes [#/volume] in Blood by Automated count 0.97 10^3/uL 0.00 - 0.90 H [facility] Eosinophils [#/volume] in Blood by Automated count 0.16 10^3/uL 0.00 - 0.70 [facility] Basophils [#/volume] in Blood by Automated count 0.05 10^3/uL 0.00 - 0.20 [facility] #IG 0.03 10^3/uL 0.00 - 0.10 [facility] #NRBC 0.00 10^3/uL 0.00 - 0.00 [facility] MANUAL DIFF NOT INDICATED [facility] RBC MORPH NOT INDICATED [facility] spital ID Date Data Source [id number] 08/27/2020 05:26:00 PM EST [facility] Name Value Range Interpretation Code Description Data Esthela rce(s) Supporting Document(s) Lactate [Moles/volume] in Serum or Plasma 1.9 MMOL/L 0.2 - 2.2 [facility] ID Date Data Source [id number] 08/09/2020 08:54:49 AM EDT [facility] Name Value Range Interpretation Code Description Data Esthela rce(s) Supporting Document(s) &PDF [facility] JLSKAv0uAyLEElZt44/YWRgwMTJfz6XzMTvaGZn5PEumQPTqI8CyqHlfOELSCNaHAEZWRI9bNvHcPLRu G [file] pnJXIz6RQ9DGznmtezQUt3tB7zPkB89F6fS3ohRaAgS/Sebastián/8aJO2SEH46FK6lvsjVntd/QQNlv7VL2s [file] AgICAgICAgICAgICAgICAgICAgICAgICAgICAgICAg ICAgICAgICAgICAgICAgICAgICAgICAgICAgICAgICAgICAgICAgICAgICAgICAgICAgDQogICAgICAg ICAgICAgICAgICAgICAgICAgICAgICAgICAgICAgICAgICAgICAgICAgICAgICAgICAgICAgICAgICAg ICAgICAgICAgICAgICAgICAgICAgICAgICAgICAgIC AgDQogICAgICAgICAgICAgICAgICAgICAgICAgICAgICAgICAgICAgICAgICAgICAgICAgICAgICAgIC AgICAgICAgICAgICAgICAgICAgICAgICAgICAgICAgICAgICAgICAgICAgDQogICAgICAgICAgICAgIC AgICAgICAgICAgICAgICAgICAgICAgICAgICAgICAg ICAgICAgICAgICAgICAgICAgICAgICAgICAgICAgICAgICAgICAgICAgICAgICAgICAgICAgDQogICAg ICAgICAgICAgICAgICAgICAgICAgICAgICAgICAgICAgICAgICAgICAgICAgICAgICAgICAgICAgICAg ICAgICAgICAgICAgICAgICAgICAgICAgICAgICAgIC AgICAgDQogICAgICAgICAgICAgICAgICAgICAgICAgICAgICAgICAgICAgICAgICAgICAgICAgICAgIC AgICAgICAgICAgICAgICAgICAgICAgICAgICAgICAgICAgICAgICAgICAgICAgDQogICAgICAgICAgIC AgICAgICAgICAgICAgICAgICAgICAgICAgICAgICAg ICAgICAgICAgICAgICAgICAgICAgICAgICAgICAgICAgICAgICAgICAgICAgICAgICAgICAgICAgDQog ICAgICAgICAgICAgICAgICAgICAgICAgICAgICAgICAgICAgICAgICAgICAgICAgICAgICAgICAgICAg ICAgICAgICAgICAgICAgICAgICAgICAgICAgICAgIC AgICAgICAgDQogICAgICAgICAgICAgICAgICAgICAgICAgICAgICAgICAgICAgICAgICAgICAgICAgIC AgICAgICAgICAgICAgICAgICAgICAgICAgICAgICAgICAgICAgICAgICAgICAgICAgDQogICAgICAgIC AgICAgICAgICAgICAgICAgICAgICAgICAgICAgICAg ICAgICAgICAgICAgICAgICAgICAgICAgICAgICAgICAgICAgICAgICAgICAgICAgICAgICAgICAgICAg WTq5H3lhCTLxFLRaGV4aHMs7Uh1+CXwULjVjMPC9wmCxnF1ELN7jg7SqEGweAQSgq4ViUMr7KW2UGKVm WUuoEN3IBLnabx0XNCJqBOTkbXVWr5aaXfLvQUD2VR WjRpzhUL3DUMEgF8lgxgMuXVKqACOJANyoXFWPGD5UYzKcY0PavN17JCHAXr6+KIfxisAjChqXMlY0DR Gyy1KjBQv9ZB3PAEIaNFhrKN8MPFTcnP0xURnsES2ZLcAeLXOxJFHVKtAnD73ulYQgPXo1J4BwCoPaBM VkRmlsZXMgPDwvTmFtZXMgWyBdDQogID4+ID4+DQog BO1BVItujoOvPTUuSu9JKZXtPEY3VFKomWVvHpGmLILLKIjgMS5FlHLxYWU6hQ9eVWoaWNMxDRAeF1tE UkWzmSuwDT57tGgdsyZmnZEcTLt+Zo4LZF4eg2YpXPz6wtSvGJloKTV7ZFfqZNZjKKGgAAKdNZY0NZN5 XXOORvAzOCVwZSZmNVrfYBRdUKXjyz0RGXMzKRMrLF jhDFPoGOAfAMMtWTqhPXFhIVO0TLU0OFQaWMDiHS3IVwKoVUYiYMElBHQyIOGiRFRwsn1DVOFcVZOyFe S6GaYiARGuTQKhIZvaLRVrCBOcFJqnGTZdUXEaLY4SKfMbIUChLZSzDMEwEAOiZOTyys3UWQBwFBPgDh MrZEIwKVUfCEVnARbxDTRvIQN3ZEw8KVFwRGAkXW6R UjIeYLFdYFvdYlQiMACnLEBghq2IPGOlAMHeEyH0ILHhRVYxQVKeYYizZZDvCCM3MQN8WWTtHIUuNG1J CdOtDZXmGPl6ZZOfCXQkJQKipa5HORCkDBNtPSkbWSRkXBMdBAQwOLnlARSlVJAvAzVsWHKrGFWiMR4T EhTcSGHdERFcFxrsTMLaXTQzgw5KTCLaZZJtUMK3HS ShUKBrFHYiOVdwDQRmVIB1GAN0MITgHQGaLW6WCzSqATAlDLS8FwPgYKOlUPMxpw0KTGKkXXIbCCVoFG XeOWVpOLQrORdwCUHsNRS7WIDlLLQzNGIcEH3NLvSbPYBhBGJ7HqYyGNMnREXlul1DBNVeYPLaRFN4MX HpDMDqZCYdHNcuNHTuSQB2Itm3NMGcGNKhXI7MZkYj CAXcHfVyZsRvGHEbTJHelh7JLRTgOJRoWeM8KQVqDSAeXIXwCVs2zmExaBLoXVv1GV9TD1WuhrXaGduW Lj5Ec860BMS8EWZoSc5VL0ktAw8vPLCcFXDHDw1FORs6XDY6TqUjGIw2CVV8XwQ6ZML9FVigYhFkZfI7 NGEzNDI+FDr5Gqy2OzNjSiHgRvdnNvT6JZekJPU1Rs StHIi9WZW7Rq0qJCCXUq7+RVwdtXJxtKdhIPCWTmY4XiL3ARrqACTJUs6B Procedure Social History Code Duration Value Status Description Data Source(s ) Alcohol intake 05/09/2021 12:00:00 AM EDT Ex-drinker (finding) comp leted Ex- drinker (finding) [facility] Smoking 02/25/2021 12:00:00 AM EDT Patient is a former smoker completed Patient is a former smoker [facility] ([facility] Alcohol intake 01/03/2021 12:00:00 AM EST Not Currently completed [facility] Smoking 01/03/2021 12:00:00 AM EST Former smoker completed Former smoker [facility] Alcohol intake 10/16/2020 12:00:00 AM EST Not Currently completed [facility] Smoking 10/16/2020 12:00:00 AM EST Former smoker completed Former smoker [facility] Smoking 10/14/2020 01:05:18 PM EST Ex-smoker (finding) [facility] Ex-smoker (finding) [place] (Raven Hutchison [facility] [employer]) Alcohol intake 09/27/2020 12:00:00 AM EST Not Currently completed [facility] Smoking 09/27/2020 12:00:00 AM EST Former smoker completed Former smoker [facility] Smoking 09/17/2020 09:47:45 AM EST Ex-smoker (finding) [facility] ed Ex-smoker (finding) [place] ([facility] Hutchison [facility] [employer]) Smoking 09/17/2020 09:38:22 AM EST Ex-smoker (finding) complet ed Ex-smoker (finding) [place] ([facility] Hutchison [facility] [employer]) Smoking 09/17/2020 09:24:31 AM EST Ex-smoker (finding) complet ed Ex-smoker (finding) [place] ([facility] Hutchison [facility] [employer]) Smoking 09/17/2020 09:05:12 AM EST Ex-smoker (finding) complet ed Ex-smoker (finding) [place] ([facility] Hutchison [facility] [employer]) Smoking 09/17/2020 08:52:00 AM EST Ex-smoker (finding) complet ed Ex-smoker (finding) [place] (R[facility] Hutchison [facility] [employer]) Smoking 09/17/2020 08:45:24 AM EST Ex-smoker (finding) complet ed Ex-smoker (finding) [place] ([facility] Hutchison [facility] [employer]) Vital Signs ID Date Data Source UNK Name Value Range Interpretation Code Description Data Source(s) Systolic blood pressure 124 mm[Hg] 124 mm[Hg] [facility] Diastolic blood pressure 62 mm[Hg] 62 mm[Hg] [facility] ([facility]) Body height 68.25 [in_i] 68.25 [in_i] [facility] ([facility]) 5'8.25" Body weight 185.00 [lb_av] 185.00 [lb_av] [facility] ([facility]) Body mass index (BMI) [Ratio] 27.9 kg/m2 27.9 k g/m2 [facility]) Oxygen saturation in Arterial blood by Pulse oximetry 96 % 96 % [facility] ([facility]) Heart rate 65 /min 65 /min [facility] ([facility]) Body mass index (BMI) [Ratio] 26.9 kg/m2 26.9 k g/m2 [facility] ([facility], ) Body height 69 [in_i] 69 [in_i] [facility] ([facility]) 5'9" Diastolic blood pressure 74 mm[Hg] 74 mm[Hg] [facility] ([facility], ) Systolic blood pressure 155 mm[Hg] 155 mm[Hg] [facility] Body weight 182.00 [lb_av] 182.00 [lb_av] [facility] T ([facility]) Body surface area Derived from formula 1.98 m2 1.98 m2 [facility] ([facility]) [place] body weight 160 [lb_av] 160 [lb_av] [facility] T ([facility]) Body weight 82.555 kg 82.555 kg [facility] ([facility]) Body mass index (BMI) [Ratio] 27.8 kg/m2 27.8 k g/m2 [facility] ([facility]) Oxygen saturation in Arterial blood by Pulse oximetry 98 % 98 % [facility] ([facility]) Systolic blood pressure 126 mm[Hg] 126 mm[Hg] M EDENT ([facility] ) Diastolic blood pressure 60 mm[Hg] 60 mm[Hg] [facility] ([facility]) Heart rate 54 /min 54 /min [facility] ([facility]) Body height 68.25 [in_i] 68.25 [in_i] [facility] ([facility] ) 5'8.25" Body weight 184.31 [lb_av] 184.31 [lb_av] [facility] T ([facility]) Systolic blood pressure 130 mm[Hg] 130 mm[Hg] [facility] Diastolic blood pressure 60 mm[Hg] 60 mm[Hg] [facility] Heart rate 61 /min 61 /min [facility] Respiratory rate 18 /min 18 /min [facility] Body weight 85.276 kg 85.276 kg [facility] Body mass index (BMI) [Ratio] 28.59 kg/m2 28.59 kg/m2 [facility] Oxygen saturation in Arterial blood by Pulse oximetry 98 % 98 % [facility] Body weight 183.8 [lb_av] 183.8 [lb_av] [facility] ([facility]) Body height 69 [in_i] 69 [in_i] W1 ([facility]) Body mass index (BMI) [Ratio] 27.14 kg/m2 27.14 kg/m2 [facility] ([facility]) Heart rate 58 /min 58 /min eCW1 ([facility]) Respiratory rate 18 /min 18 /min eCW1 ([facility]) Body temperature 97.2 [degF] 97.2 [degF] eCW1 ( [facility]) Systolic blood pressure 170 mm[Hg] 170 mm[Hg] e CW1 ([facility]) Diastolic blood pressure 71 mm[Hg] 71 mm[Hg] eCW1 ([facility]) Body temperature 97.3 [degF] 97.3 [degF] [facility] ([facility]) Body height 66.5 [in_i] 66.5 [in_i] [facility] ([facility]) 5'6.50" Body weight 179.00 [lb_av] 179.00 [lb_av] [facility] T ([facility]) Body mass index (BMI) [Ratio] 28.5 kg/m2 28.5 k g/m2 [facility] ([facility]) Body weight 179.00 [lb_av] 179.00 [lb_av] [facility] T ([facility]) Body mass index (BMI) [Ratio] 28.5 kg/m2 28.5 k g/m2 [facility] ([facility]) Body temperature 97.3 [degF] 97.3 [degF] [facility] ([facility]) Body height 66.5 [in_i] 66.5 [in_i] [facility] ([facility]) 5'6.50" Body weight 182.2 [lb_av] 182.2 [lb_av] eCW1 ([facility]) Body height 69 [in_i] 69 [in_i] eCW1 ([facility]) Body mass index (BMI) [Ratio] 26.90 kg/m2 26.90 kg/m2 W1 ([facility]) Heart rate 64 /min 64 /min eCW1 ([facility]) Respiratory rate 18 /min 18 /min eCW1 ([facility]) Body temperature 95.4 [degF] 95.4 [degF] eCW1 ( [facility]) Systolic blood pressure 136 mm[Hg] 136 mm[Hg] e CW1 ([facility]) Diastolic blood pressure 60 mm[Hg] 60 mm[Hg] eCW1 ([facility]) Systolic blood pressure 122 mm[Hg] 122 mm[Hg] M EDENT ([facility]) Diastolic blood pressure 60 mm[Hg] 60 mm[Hg] [facility] ([facility]) Heart rate 55 /min 55 /min [facility] ([facility]) Body temperature 96.5 [degF] 96.5 [degF] [facility] ([facility]) Body height 68.25 [in_i] 68.25 [in_i] [facility] ([facility]) 5'8.25" Body weight 176.50 [lb_av] 176.50 [lb_av] MED[facility] T ([facility]) Body mass index (BMI) [Ratio] 26.6 kg/m2 26.6 k g/m2 [facility] ([facility]) Oxygen saturation in Arterial blood by Pulse oximetry 99 % 99 % [facility] ([facility]) Body weight 177 [lb_av] 177 [lb_av] eCW1 ([facility]) Body height 69 [in_i] 69 [in_i] eCW1 ([facility]) Body mass index (BMI) [Ratio] 26.14 kg/m2 26.14 kg/m2 [facility] ([facility]) Heart rate 62 /min 62 /min eCW1 ([facility]) Respiratory rate 18 /min 18 /min eCW1 ([facility]) Body temperature 97.4 [degF] 97.4 [degF] eCW1 ( [facility]) Systolic blood pressure 137 mm[Hg] 137 mm[Hg] e CW1 ([facility]) Diastolic blood pressure 64 mm[Hg] 64 mm[Hg] eCW1 ([facility]) Systolic blood pressure 126 mm[Hg] 126 mm[Hg] [facility] Diastolic blood pressure 52 mm[Hg] 52 mm[Hg] [facility] Heart rate 65 /min 65 /min [facility] Respiratory rate 20 /min 20 /min [facility] Body height 172.7 cm 172.7 cm [facility] Body weight 80.287 kg 80.287 kg [facility] Body mass index (BMI) [Ratio] 26.91 kg/m2 26.91 kg/m2 [facility] Oxygen saturation in Arterial blood by Pulse oximetry 95 % 95 % [facility] Body mass index (BMI) [Ratio] 27.2 kg/m2 27.2 k g/m2 [facility] ([facility]) Body temperature 97.8 [degF] 97.8 [degF] [facility] ([facility]) Body height 69 [in_i] 69 [in_i] [facility] ([facility]) 5'9" Body weight 184.00 [lb_av] 184.00 [lb_av] MED[facility] T ([facility]) Diastolic blood pressure 65 mm[Hg] 65 mm[Hg] [facility] ([facility], ) Systolic blood pressure 131 mm[Hg] 131 mm[Hg] M EDENT ([facility], ) Body height 69 [in_i] 69 [in_i] [facility] ([facility], ) 5'9" Body weight 185.00 [lb_av] 185.00 [lb_av] MED[facility] T ([facility], ) [place] body weight 160 [lb_av] 160 [lb_av] [facility] T ([facility], ) Body weight 83.916 kg 83.916 kg [facility] ([facility], ) Body surface area Derived from formula 2.00 m2 2.00 m2 [facility] Body mass index (BMI) [Ratio] 27.3 kg/m2 27.3 k g/m2 [facility] ([facility], ) Body weight 184.31 [lb_av] 184.31 [lb_av] [facility] T ([facility]) Body mass index (BMI) [Ratio] 27.8 kg/m2 27.8 k g/m2 [facility] ([facility]) Oxygen saturation in Arterial blood by Pulse oximetry 97 % 97 % [facility] ([facility]) Systolic blood pressure 124 mm[Hg] 124 mm[Hg] M [facility] ([facility]) Diastolic blood pressure 74 mm[Hg] 74 mm[Hg] [facility] ([facility]) Heart rate 64 /min 64 /min [facility] ([facility]) Body temperature 96.8 [degF] 96.8 [degF] [facility] ([facility]) Body height 68.25 [in_i] 68.25 [in_i] [facility] ([facility]) 5'8.25" Systolic blood pressure 118 mm[Hg] 118 mm[Hg] [facility] Diastolic blood pressure 78 mm[Hg] 78 mm[Hg] [facility] Body height 172.7 cm 172.7 cm [facility] Heart rate 59 /min 59 /min [facility] Body weight 83.462 kg 83.462 kg [facility] Body mass index (BMI) [Ratio] 27.98 kg/m2 27.98 kg/m2 [facility] Oxygen saturation in Arterial blood by Pulse oximetry 99 % 99 % [facility] Systolic blood pressure 120 mm[Hg] 120 mm[Hg] [facility] Diastolic blood pressure 65 mm[Hg] 65 mm[Hg] [facility] Heart rate 97 /min 97 /min [facility] Body height 172.7 cm 172.7 cm [facility] Body weight 86.183 kg 86.183 kg [facility] Body mass index (BMI) [Ratio] 28.89 kg/m2 28.89 kg/m2 [facility] Oxygen saturation in Arterial blood by Pulse oximetry 99 % 99 % [facility] Systolic blood pressure 126 mm[Hg] 126 mm[Hg] M [facility]ENT ([facility]) Diastolic blood pressure 70 mm[Hg] 70 mm[Hg] [facility] ([facility]) Heart rate 77 /min 77 /min [facility] ([facility]) Body temperature 97.6 [degF] 97.6 [degF] [facility] ([facility]) Body weight 175.25 [lb_av] 175.25 [lb_av] [facility] T ([facility]) Body mass index (BMI) [Ratio] 26.4 kg/m2 26.4 k g/m2 [facility] ([facility]) Oxygen saturation in Arterial blood by Pulse oximetry 99 % 99 % [facility] ([facility]) Body height 68.25 [in_i] 68.25 [in_i] [facility] ([facility]) 5'8.25" Body weight 189.8 [lb_av] 189.8 [lb_av] eCW1 ([facility]) Body height 69 [in_i] 69 [in_i] eCW1 ([facility]) Body mass index (BMI) [Ratio] 28.03 kg/m2 28.03 kg/m2 eCW1 ([facility]) Heart rate 53 /min 53 /min eCW1 ([facility]) Respiratory rate 18 /min 18 /min eCW1 ([facility]) Body temperature 98.2 [degF] 98.2 [degF] eCW1 ( [facility]) Systolic blood pressure 135 mm[Hg] 135 mm[Hg] e CW1 ([facility]) Diastolic blood pressure 56 mm[Hg] 56 mm[Hg] eCW1 ([facility]) Patient Treatment Plan of Care Planned Activity Planned Date Details Description Data Source (s) Acetaminophen 325 MG / Hydrocodone Bitartrate 5 MG Ora l Tablet 08/21/2021 12:00:00 AM EDT eCW1 ([facility]) Acetaminophen 325 MG / Hydrocodone Bitartrate 5 MG Ora l Tablet 08/21/2021 12:00:00 AM EDT eCW1 ([facility]) Acetaminophen 325 MG / Hydrocodone Bitartrate 5 MG Ora l Tablet 08/21/2021 12:00:00 AM EDT eCW1 ([facility]) Acetaminophen 325 MG / Hydrocodone Bitartrate 5 MG Ora l Tablet 08/21/2021 12:00:00 AM EDT eCW1 ([facility]) Acetaminophen 325 MG / Hydrocodone Bitartrate 5 MG Ora l Tablet 08/21/2021 12:00:00 AM EDT eCW1 ([facility]) Acetaminophen 325 MG / Hydrocodone Bitartrate 5 MG Ora l Tablet 07/22/2021 12:00:00 AM EDT eCW1 ([facility]) Acetaminophen 325 MG / Hydrocodone Bitartrate 5 MG Ora l Tablet 07/22/2021 12:00:00 AM EDT eCW1 ([facility]) Acetaminophen 325 MG / Hydrocodone Bitartrate 5 MG Ora l Tablet 06/19/2021 12:00:00 AM EDT eCW1 ([facility]) Warfarin Sodium 10 MG Oral Tablet 05/08/2021 12:00:00 AM EDT [facility] Acetaminophen 325 MG / Hydrocodone Bitartrate 5 MG Ora l Tablet 04/17/2021 12:00:00 AM EDT eCW1 ([facility]) Acetaminophen 325 MG / Hydrocodone Bitartrate 5 MG Ora l Tablet 04/17/2021 12:00:00 AM EDT eCW1 ([facility]) Acetaminophen 325 MG / Hydrocodone Bitartrate 5 MG Ora l Tablet 04/17/2021 12:00:00 AM EDT eCW1 ([facility]) Acetaminophen 325 MG / Hydrocodone Bitartrate 5 MG Ora l Tablet 04/17/2021 12:00:00 AM EDT eCW1 ([facility]) Acetaminophen 325 MG / Hydrocodone Bitartrate 5 MG Ora l Tablet 03/25/2021 12:00:00 AM EDT eCW1 ([facility]) Acetaminophen 325 MG / Hydrocodone Bitartrate 5 MG Ora l Tablet 02/25/2021 12:00:00 AM EDT eCW1 ([facility]) Acetaminophen 325 MG / Hydrocodone Bitartrate 5 MG Ora l Tablet 01/23/2021 12:00:00 AM EDT eCW1 ([facility]) Acetaminophen 325 MG / Hydrocodone Bitartrate 5 MG Ora l Tablet 01/23/2021 12:00:00 AM EDT eCW1 ([facility]) Nitroglycerin 0.4 MG Sublingual Tablet 01/20/2021 12:00:00 AM EDT [facility] Nitroglycerin 0.4 MG Sublingual Tablet 01/03/2021 12:00:00 AM EST [facility] Trazodone Hydrochloride 100 MG Oral Tablet 01/02/2021 12:00:00 AM E [facility] fluticasone (FLONASE) 50 MCG/ACT nasal spray 12/31/2020 12:00:00 AM EST [facility] cefdinir 300 MG Oral Capsule 12/31/2020 12:00:00 AM EST [facility] Acetaminophen 325 MG / Hydrocodone Bitartrate 5 MG Ora l Tablet 12/26/2020 12:00:00 AM EST eCW1 ([facility]) Acetaminophen 325 MG / Hydrocodone Bitartrate 5 MG Ora l Tablet 12/26/2020 12:00:00 AM EST eCW1 ([facility]) Acetaminophen 325 MG / Hydrocodone Bitartrate 5 MG Ora l Tablet 12/26/2020 12:00:00 AM EST eCW1 ([facility]) Acetaminophen 325 MG / Hydrocodone Bitartrate 5 MG Ora l Tablet 12/26/2020 12:00:00 AM EST eCW1 ([facility]) B-D UF III MINI PEN NEEDLES 31G X 5 MM MISC 12/25/2020 12:00:00 AM EST [facility] albuterol (PROVENTIL HFA;VENTOLIN HFA) 108 (90 Base) M CG/ACT inhaler 12/20/2020 12:00:00 AM EST [facility] Ondansetron 4 MG Disintegrating Oral Tablet 12/05/2020 12:00:00 AM EST [facility] Acetaminophen 325 MG / Hydrocodone Bitartrate 5 MG Ora l Tablet 11/27/2020 12:00:00 AM EST eCW1 ([facility]) Acetaminophen 325 MG / Hydrocodone Bitartrate 5 MG Ora l Tablet 11/27/2020 12:00:00 AM EST eCW1 ([facility]) Acetaminophen 325 MG / Hydrocodone Bitartrate 5 MG Ora l Tablet 11/27/2020 12:00:00 AM EST eCW1 ([facility]) Acetaminophen 325 MG / Hydrocodone Bitartrate 5 MG Ora l Tablet [[place]] 11/26/2020 12:00:00 AM EST eCW1 ([facility]) Acetaminophen 325 MG / Hydrocodone Bitartrate 5 MG Ora l Tablet [[place]] 11/26/2020 12:00:00 AM EST eCW1 ([facility]) Warfarin Sodium 1 MG Oral Tablet 11/02/2020 12:00:00 AM [facility] Acetaminophen 325 MG / Hydrocodone Bitartrate 5 MG Ora l Tablet [[place]] 10/24/2020 12:00:00 AM EST eCW1 ([facility]) Acetaminophen 325 MG / Hydrocodone Bitartrate 5 MG Ora l Tablet [[place]] 10/24/2020 12:00:00 AM EST eCW1 ([facility] [facility] Pramipexole dihydrochloride 0.5 MG Oral Tablet 10/23/2020 12:00:00 AM [facility] pantoprazole 40 MG Delayed Release Oral Tablet 10/07/2020 12:00:00 AM [facility] sacubitril 24 MG / valsartan 26 MG Oral Tablet 09/29/2020 12:00:00 AM [facility] Lidocaine 25 MG/ML / Prilocaine 25 MG/ML Topical Cream 09/25/2020 12:00:00 AM [facility] Acetaminophen 325 MG / Hydrocodone Bitartrate 5 MG Ora l Tablet [[place]] 09/23/2020 12:00:00 AM EST eCW1 ([facility]) valsartan 40 MG Oral Tablet 09/18/2020 12:00:00 AM EST [facility] moxifloxacin 5 MG/ML Ophthalmic Solution 09/08/2020 12:00:00 AM EST [facility] Ondansetron 4 MG Disintegrating Oral Tablet 09/08/2020 12:00:00 AM EST [facility] Acetaminophen 325 MG / Hydrocodone Bitartrate 5 MG Ora l Tablet [[place]] 08/23/2020 12:00:00 AM EDT eCW1 ([facility]) Acetaminophen 325 MG / Hydrocodone Bitartrate 5 MG Ora l Tablet [[place]] 08/23/2020 12:00:00 AM EDT eCW1 ([facility]) Acetaminophen 325 MG / Hydrocodone Bitartrate 5 MG Ora l Tablet [[place]] 08/23/2020 12:00:00 AM EDT eCW1 ([facility]) Acetaminophen 325 MG / Hydrocodone Bitartrate 5 MG Ora l Tablet [[place]] 08/23/2020 12:00:00 AM EDT eCW1 ([facility]) Acetaminophen 325 MG / Hydrocodone Bitartrate 5 MG Ora l Tablet [[place]] 08/23/2020 12:00:00 AM EDT eCW1 ([facility]) Aspirin 81 MG Delayed Release Oral Tablet 08/21/2020 12:00:00 AM ED T [facility] BromSite 0.075% Ophthalmic Solution 08/20/2020 12:00:00 AM EDT [facility] (Raven Hutchison MD [facility]) Inveltys 1% Ophthalmic Suspension 08/20/2020 12:00:00 AM EDT [facility] (Raven Hutchison [facility]) moxifloxacin 5 MG/ML Ophthalmic Solution 08/20/2020 12:00:00 AM EDT [facility] (Raven Hutchison MD [facility]) Ketorolac Tromethamine 4 MG/ML Ophthalmic Solution 08/20/2020 12 :00:00 AM EDT [facility] (Raven Hutchison [facility]) prednisolone acetate 10 MG/ML Ophthalmic Suspension [P red Forte] 08/20/2020 12:00:00 AM EDT [place] (Raven Hutchison [facility]) Donepezil hydrochloride 10 MG Oral Tablet 08/15/2020 12:00:00 AM ED T [facility] Nitroglycerin 0.4 MG Sublingual Tablet 06/09/2019 12:00:00 AM EDT [facility] Fluticasone Furoate (ARNUITY ELLIPTA) 50 MCG/ACT AEPB 02/06/2019 12:00:00 AM EDT [facility] Warfarin Sodium 7.5 MG Oral Tablet [facility] Pramipexole dihydrochloride 0.125 MG Oral Tablet [facility] Isosorbide Dinitrate 30 MG Oral Tablet [facility] Fluticasone propionate 0.5 MG/ML Topical Cream [facility]
[2021-09-27 16:10] LABS: HEMOGLOBIN A1c 8.5 %
--- NOTE | 2021-09-27 16:23 | REP ---
INDICATION: cough. COMPARISON: Comparison chest x-ray December 31, 2020. TECHNIQUE: Sitting portable chest radiograph, two views. FINDINGS: The lungs are symmetrically aerated and no infiltrate is seen. Pleural angles are sharp. Cardiomegaly is observed mild in degree. Pulmonary vasculature is cephalized. There is no evidence of pulmonary edema or pleural effusion. No acute bony abnormality is seen. The patient is status post cervical discectomy and fusion plating. Monitoring electrodes are present. IMPRESSION: Cardiomegaly. Pulmonary vascular cephalization. No infiltrate seen. <Electronically signed by Scott Garcia > 09/27/21 [id number]
[2021-09-27 16:25] LABS: BILIRUBIN,TOTAL 0.4 MG/DL (0.2-1.0); CALCIUM LEVEL 7.9 MG/DL (8.8-10.2); CREATININE FOR GFR 5.36 MG/DL (0.70-1.30); GLOMERULAR FILTRATION RATE 11.3 (>42); POTASSIUM SERUM 4.7 MEQ/L (3.5-5.1); TOTAL PROTEIN 7.2 GM/DL (6.4-8.2)
[2021-09-27] MEDS ORDERED: HumuLIN R (REGULAR) INSULIN (NovoLIN R) **100U/ML** PER UNIT IV ONE (16:30)
--- NOTE | 2021-09-27 16:39 | REP ---
INDICATION: swelling. COMPARISON: None. TECHNIQUE: Left {lower extremity duplex venous scanning is performed from the groin to the ankle level. FINDINGS: The deep veins are anechoic and fully compressible from the groin to the popliteal fossa in the left lower extremity. Color flow imaging is homogeneous. Spectral Doppler interrogation demonstrates intact respiratory variation in flow and normal manual augmentation of flow. There is no evidence of deep vein thrombosis above the knee. There is no evidence of DVT in the visualized calf veins. Doppler interrogation of the contralateral common femoral vein shows normal symmetric respiratory phasicity. IMPRESSION: No evidence of DVT in the left lower extremity femoropopliteal veins. No DVT in the visible portions of the calf veins. <Electronically signed by Scott Garcia > 09/27/21 [id number]
[2021-09-27] MEDS ORDERED: GOLYTELY SOLN 4000 ML BTL PO ONE (17:10)
--- NOTE | 2021-09-27 17:22 | REP ---
INDICATION: abd pain COMPARISON: Comparison CT study October 30, 2015. TECHNIQUE: Helical scanning is acquired and 3 mm axial images were reformatted. Coronal and sagittal MPR images were generated and reviewed. FINDINGS: The preliminary digital route sales manager radiograph demonstrates moderate stool. No large or small bowel dilation. Axial images through the lung bases show no evidence of infiltrate. No pleural effusion is seen. Spleen is somewhat prominent measuring 13 cm in greatest dimension unchanged. There is a small cyst in the upper pole the right kidney. Vascular calcification is noted. No abnormality is visible in the pancreas. There are calcific small gallstones layering in the dependent portion the gallbladder. No focal hepatic lesion is seen. There is no evidence of hydronephrosis or intrarenal calculus. Pelvic CT images demonstrate normal seminal vesicles and urinary bladder. Dystrophic calcifications are seen in the prostate. There is extensive diverticulosis involving the sigmoid colon. Mural thickening is seen in the sigmoid colon which may reflect mild diverticulitis. No abscess or free air is seen. A normal appendix is observed in the right lower quadrant. There is no evidence of free intraperitoneal air or abnormal fluid collection. Nonspecific air-filled small bowel loops are seen. No obstructive lesion is seen. No abdominal wall defect or bony destructive lesion is seen. There is a wedge compression fracture deformity of the L3 vertebral body level which is chronic. It was not present on the [address] study however it can be seen on abdominal radiograph from December 31, 2020. It is not felt to be acute. IMPRESSION: Mild splenic enlargement. Small hiatal hernia. Cholelithiasis. Left colonic diverticulosis in the sigmoid colon with mural thickening question mild diverticulitis. No abscess or free air. Normal appendix. <Electronically signed by Scott Garcia > 09/27/21 [id number]
[2021-09-27] MEDS ORDERED: CIPROFLOXACIN 500MG TABLET PO ONE (17:30)
[2021-09-27 17:31] VITALS: BP 165/79
[2021-09-27] MEDS ORDERED: metroNIDAZOLE (FLAGYL) 500MG TABLET PO ONE (17:35)
[2021-09-27] MEDS ORDERED: CIPR-249 PO (17:40)
[2021-09-27] MEDS ORDERED: METR-265 PO (17:42)
== END 2021-09-27 18:34 | disposition home or self-care (01) ==
LOC: M ED 15:15
DX: K57.92 Diverticulitis of intestine, part unspecified, without perforation or abscess without bleeding (principal); E11.65 Type 2 diabetes mellitus with hyperglycemia; R22.42 Localized swelling, mass and lump, left lower limb; I12.0 Hypertensive chronic kidney disease with stage 5 chronic kidney disease or end stage renal disease; N18.6 End stage renal disease; J44.9 Chronic obstructive pulmonary disease, unspecified; E78.5 Hyperlipidemia, unspecified; G47.33 Obstructive sleep apnea (adult) (pediatric); G62.9 Polyneuropathy, unspecified; E07.9 Disorder of thyroid, unspecified; F33.9 Major depressive disorder, recurrent, unspecified; K90.0 Celiac disease; Z88.0 Allergy status to penicillin; Z88.1 Allergy status to other antibiotic agents; Z88.8 Allergy status to other drugs, medicaments and biological substances; Z91.040 Latex allergy status; Z79.899 Other long term (current) drug therapy; Z79.82 Long term (current) use of aspirin; Z79.4 Long term (current) use of insulin; Z79.01 Long term (current) use of anticoagulants

== ENCOUNTER 2021-10-09 16:59 | Inpatient (IN) | payer MEDICARE ==
[~2021-10-09] VITALS: Ht 177.8 cm; Wt 95.6 kg
[~2021-10-09 16:59] MED LIST changes: +AZEL1SPR3; -AZEL1SPR3 NARES; -CEFD1CAP8 PO; +CEFD300C41 PO; +CIPR-249 PO; +FLUO-96 PO; -FLUO20CA20 PO; +FLUTISP; -FLUTISP NARES; -LEVO500T3 PO; +LEVO500T4 PO; +METR-265 PO
[2021-10-09 18:01] LABS: BASO % 0.3 % (0.0-1.0); EOS % 0.5 % (0.0-3.0); LYMPH # 0.6 10^3/uL (1.5-5.0); LYMPH % 9.1 % (24.0-44.0); MEAN CORPUSCULAR HGB CONC 32.6 g/dl (32.0-36.5); MONO # 0.1 10^3/uL (0.0-0.8); MONO % 1.6 % (2.0-8.0); NEUTROPHILS # 5.6 10^3/uL (1.5-8.5); NEUTROPHILS % 87.9 % (36.0-66.0); PLATELET COUNT, AUTOMATED 128 10^3/uL (150-450); RED BLOOD COUNT 1.91 10^6/uL (4.30-6.10); WHITE BLOOD COUNT 6.4 10^3/uL (4.0-10.0)
[2021-10-09 18:02] LABS: HEMATOCRIT 19.3 % (42.0-52.0); HEMOGLOBIN 6.3 g/dl (13.5-17.5)
[2021-10-09] MEDS ORDERED: PANTOPRAZOLE 40MG VIAL (C9113 PER 1) IV ONE (18:15)
[2021-10-09 18:37] LABS: ALBUMIN 2.5 GM/DL (3.2-5.2); BILIRUBIN,DIRECT 0.1 MG/DL (0.0-0.2); BILIRUBIN,TOTAL 0.3 MG/DL (0.2-1.0); CALCIUM LEVEL 7.8 MG/DL (8.8-10.2); CREATININE FOR GFR 5.27 MG/DL (0.70-1.30); FREE T4 1.16 NG/DL (0.76-1.46); GLOMERULAR FILTRATION RATE 11.6 (>42); POTASSIUM SERUM 5.3 MEQ/L (3.5-5.1); THYROID STIMULATING HORMONE 3.21 uIU/ML (0.358-3.740); TOTAL PROTEIN 5.6 GM/DL (6.4-8.2)
[2021-10-09] MEDS ORDERED: HumuLIN R (REGULAR) INSULIN (NovoLIN R) **100U/ML** PER UNIT IV ONE (18:50)
[2021-10-09 19:30] LABS: RSV AMPLIFICATION NEGATIVE (NEGATIVE)
[2021-10-09 20:04] LABS: PARTIAL THROMBOPLASTIN TIME 44.8 SECONDS (25.9-37.0)
[2021-10-09 20:15] LABS: INR 4.37; PROTHROMBIN TIME 41.9 SECONDS (12.7-14.5)
[2021-10-09 21:00] VITALS: BP 161/71
[2021-10-09] MEDS: HumaLOG INSULIN (NovoLOG) PER UNIT SC SCH (21:00)
[2021-10-09] MEDS ORDERED: LEVEMIR (INSULIN DETEMIR) 1 UNITS/0.01ML SC SCH (21:00)
[2021-10-09] MEDS ORDERED: GABAPENTIN 100 MG CAP PO SCH (21:00)
[2021-10-09] MEDS ORDERED: ACETAMINOPHEN TAB 650MG DOSE (2X325MG) PO PRN (21:05)
[2021-10-09] MEDS ORDERED: SOD POLYSTYRENE SULFONATE SUSP 15 GM/60 ML UD PO ONE ×2 (21:10→21:20)
[2021-10-09 21:15] VITALS: BP 144/62
[2021-10-09 21:45] VITALS: BP 158/72
[2021-10-09 21:49] LABS: HEMOGLOBIN A1c 8.4 %
[2021-10-09 22:00] VITALS: BP 136/60
[2021-10-09 22:20] VITALS: BP 127/58
[2021-10-09] MEDS ORDERED: CLON0.5T2 PO (22:24)
[2021-10-09] MEDS ORDERED: CALC1CAP PO (22:24)
[2021-10-09] MEDS ORDERED: ASPI-161 PO (22:24)
[2021-10-09] MEDS ORDERED: ONDA4TAB6 PO (22:24)
[2021-10-09] MEDS ORDERED: BISO5TAB14 PO (22:24)
[2021-10-09] MEDS ORDERED: PANT40TA29 PO (22:24)
[2021-10-09] MEDS ORDERED: ARNU50IN INH (22:24)
[2021-10-09] MEDS ORDERED: HOME MED LIST COMPLETE! XX SCH (22:25)
[2021-10-09] MEDS ORDERED: ALBUTEROL 90 MCG/ACT 8GM HFA INHALER INH PRN (22:30)
[2021-10-09] MEDS ORDERED: NITROGLYCERIN 0.4 MG SUBL TABLET SL PRN (22:30)
[2021-10-09] MEDS ORDERED: ALBUTEROL SULFATE 2.5 MG/0.5 ML INH NEB SOLN INH PRN (22:30)
[2021-10-09] MEDS ORDERED: NORCO, ANEXSIA 5/325MG TABLET (HYDROcodone/ACETAMINOPHEN) PO PRN (22:30)
[2021-10-09] MEDS ORDERED: GLUCOSE 4GM CHEW TABLET PO PRN (22:30)
[2021-10-09] MEDS ORDERED: GLUCAGON INJ 1MG VIAL SC PRN (22:30)
[2021-10-09] MEDS ORDERED: DEXTROSE 50% 50 ML SYRINGE IV PRN (22:30)
[2021-10-09] MEDS ORDERED: ONDANSETRON 4 MG ORAL DISINTEGRATING TAB PO PRN (22:30)
[2021-10-09] MEDS: TAMSULOSIN 0.4 MG CAP PO SCH (23:24)
[2021-10-09] MEDS: PRAMIPEXOLE 0.25 MG TAB PO SCH (23:24)
[2021-10-09] MEDS: traZODone 100 MG TAB PO SCH (23:24)
[2021-10-09] MEDS: clonazePAM 0.5 MG TAB PO SCH (23:25)
[2021-10-10] VITALS (24 sets, daily range): BP systolic 108–156; BP diastolic 56–76; O2SAT 97–100
[2021-10-10] MEDS ORDERED: HumaLOG INSULIN (NovoLOG) PER UNIT SC ONE ×2 (00:15→05:05)
[2021-10-10 00:49] LABS: HEMATOCRIT 18.7 % (42.0-52.0)
[2021-10-10 00:55] LABS: HEMOGLOBIN 6.2 g/dl (13.5-17.5)
[2021-10-10 00:59] LABS: CK-MB VALUE MASS 2.8 NG/ML (<3.6); MB/CK RELATIVE INDEX 4.83 (< OR =4)
[2021-10-10] MEDS ORDERED: NS 1,000 ML IV SCH (01:25)
[2021-10-10] MEDS: ADVAIR HFA 230/21MCG INHALER INH SCH ×2 (07:03→19:57)
[2021-10-10] MEDS: AZELASTINE 137MCG NASAL SPY 30 ML (ASTELIN) SCH (08:37)
[2021-10-10] MEDS: HumaLOG INSULIN (NovoLOG) PER UNIT SC SCH ×4 (08:38→21:00)
[2021-10-10] MEDS: FLUTICASONE PROP 0.05% NASAL SPRAY 16 GM (FLONASE) SCH (08:38)
[2021-10-10] MEDS: bisoproloL fumarate 5 MG TAB PO SCH (08:40)
[2021-10-10] MEDS ORDERED: BUMETANIDE 1 MG TAB PO SCH (09:00)
[2021-10-10] MEDS ORDERED: FLUBLOK(EGG FREE)(QUAD)INFLUENZA VACC 0.5ML SYRINGE 18YRS & OLDER IM ONE (09:00)
[2021-10-10] MEDS ORDERED: PANTOPRAZOLE 40MG VIAL (C9113 PER 1) IV SCH (09:00)
[2021-10-10] MEDS ORDERED: LEVEMIR (INSULIN DETEMIR) 1 UNITS/0.01ML SC SCH (09:00)
[2021-10-10] MEDS ORDERED: NON-FORMULARY 1 EA EA TOP SCH (09:00)
[2021-10-10] MEDS: PRAMIPEXOLE 0.25 MG TAB PO SCH ×2 (10:06→18:28)
[2021-10-10] MEDS: clonazePAM 0.5 MG TAB PO SCH (10:07)
[2021-10-10 10:08] LABS: HEMATOCRIT 26.7 % (42.0-52.0); MEAN CORPUSCULAR HEMOGLOBIN 32.4 pg (27.0-33.0); MEAN CORPUSCULAR VOLUME 98.2 fl (80.0-96.0); PLATELET COUNT, AUTOMATED 112 10^3/uL (150-450); RED BLOOD COUNT 2.72 10^6/uL (4.30-6.10); WHITE BLOOD COUNT 7.3 10^3/uL (4.0-10.0)
[2021-10-10 10:13] LABS: HEMOGLOBIN 8.8 g/dl (13.5-17.5)
[2021-10-10 10:19] LABS: INR 2.25; PROTHROMBIN TIME 25.3 SECONDS (12.7-14.5)
[2021-10-10 10:38] LABS: CALCIUM LEVEL 7.1 MG/DL (8.8-10.2); CREATININE FOR GFR 6.32 MG/DL (0.70-1.30); GLOMERULAR FILTRATION RATE 9.4 (>42); MAGNESIUM LEVEL 1.9 MG/DL (1.8-2.4); PERCENT SATURATION 59.2 % (19.7-50.0); POTASSIUM SERUM 4.9 MEQ/L (3.5-5.1); PTH INTACT 700.8 PG/ML (18.5-88.0)
[2021-10-10] MEDS ORDERED: SODIUM CHLORIDE 0.9% 1000ML IV PRN (12:00)
[2021-10-10] MEDS ORDERED: LIDOCAINE 1% SDV 5ML VIAL SC PRN (12:00)
[2021-10-10 12:43] LABS: HEMATOCRIT 23.1 % (42.0-52.0); HEMOGLOBIN 7.8 g/dl (13.5-17.5)
[2021-10-10] MEDS ORDERED: PHYTONADIONE 10MG/ML INJECTION (J3430) SC ONE (16:30)
[2021-10-10] MEDS: SUCRALFATE 1 GM TAB PO SCH ×2 (18:11→21:50)
[2021-10-10] MEDS: PANTOPRAZOLE SODIUM 40 MG in D5W 50 ML IV SCH ×2 (18:12→21:48)
[2021-10-10] MEDS: ATORVASTATIN 20 MG TAB PO SCH (18:12)
[2021-10-10 18:21] LABS: HEMATOCRIT 29.4 % (42.0-52.0); HEMOGLOBIN 9.7 g/dl (13.5-17.5)
[2021-10-10] MEDS ORDERED: BUPRENORPHINE 20 MCG/HR TOP SCH (18:52)
[2021-10-10] MEDS: LEVEMIR (INSULIN DETEMIR) 1 UNITS/0.01ML SC SCH (21:49)
[2021-10-10] MEDS: traZODone 100 MG TAB PO SCH (21:50)
[2021-10-10] MEDS: TAMSULOSIN 0.4 MG CAP PO SCH (21:50)
[2021-10-11] VITALS (11 sets, daily range): BP systolic 140–176; BP diastolic 62–78; O2SAT 97–100
[2021-10-11] MEDS: PANTOPRAZOLE SODIUM 40 MG in D5W 50 ML IV SCH ×3 (00:06→11:32)
[2021-10-11] MEDS: PRAMIPEXOLE 0.25 MG TAB PO SCH ×4 (00:07→23:15)
[2021-10-11] MEDS: clonazePAM 0.5 MG TAB PO SCH ×3 (00:07→23:15)
[2021-10-11 00:29] LABS: HEMATOCRIT 28.5 % (42.0-52.0); HEMOGLOBIN 9.4 g/dl (13.5-17.5)
[2021-10-11 03:38] LABS: HEMOGLOBIN 8.6 g/dl (13.5-17.5)
[2021-10-11 03:40] LABS: HEMATOCRIT 26.3 % (42.0-52.0); HEMOGLOBIN 8.6 g/dl (13.5-17.5); MEAN CORPUSCULAR HEMOGLOBIN 31.2 pg (27.0-33.0); MEAN CORPUSCULAR HGB CONC 32.7 g/dl (32.0-36.5); MEAN CORPUSCULAR VOLUME 95.3 fl (80.0-96.0); PLATELET COUNT, AUTOMATED 101 10^3/uL (150-450); RED BLOOD COUNT 2.76 10^6/uL (4.30-6.10); WHITE BLOOD COUNT 7.4 10^3/uL (4.0-10.0)
[2021-10-11 03:49] LABS: INR 1.61; PROTHROMBIN TIME 19.6 SECONDS (12.7-14.5)
[2021-10-11 04:13] LABS: CREATININE FOR GFR 3.71 MG/DL (0.70-1.30); GLOMERULAR FILTRATION RATE 17.3 (>42); POTASSIUM SERUM 3.9 MEQ/L (3.5-5.1)
[2021-10-11 04:14] LABS: CALCIUM LEVEL 6.8 MG/DL (8.8-10.2)
[2021-10-11] MEDS: HumaLOG INSULIN (NovoLOG) PER UNIT SC SCH ×5 (07:30→21:00)
[2021-10-11] MEDS: bisoproloL fumarate 5 MG TAB PO SCH (08:37)
[2021-10-11] MEDS: FLUTICASONE PROP 0.05% NASAL SPRAY 16 GM (FLONASE) SCH (08:37)
[2021-10-11] MEDS: LEVEMIR (INSULIN DETEMIR) 1 UNITS/0.01ML SC SCH ×2 (08:37→21:54)
[2021-10-11] MEDS: SUCRALFATE 1 GM TAB PO SCH ×4 (08:37→21:54)
[2021-10-11] MEDS: AZELASTINE 137MCG NASAL SPY 30 ML (ASTELIN) SCH (08:38)
[2021-10-11 09:12] LABS: HEMATOCRIT 28.8 % (42.0-52.0); HEMOGLOBIN 9.4 g/dl (13.5-17.5)
[2021-10-11] MEDS: ENTRESTO 24-26MG TABLET (SACUBITRIL/VALSARTAN) PO SCH (09:16)
[2021-10-11] MEDS: ADVAIR HFA 230/21MCG INHALER INH SCH ×2 (09:22→20:00)
[2021-10-11] MEDS: SENNA 8.6 MG TAB (SENOKOT) PO SCH ×2 (11:30→21:54)
[2021-10-11] MEDS: DOCUSATE SODIUM 100MG CAPSULE PO SCH ×2 (11:31→21:54)
[2021-10-11] MEDS: CALCIUM ACETATE 667MG GELCAP PO SCH ×2 (12:30→18:07)
[2021-10-11 15:29] LABS: HEMATOCRIT 28.5 % (42.0-52.0); HEMOGLOBIN 9.3 g/dl (13.5-17.5)
[2021-10-11] MEDS: ATORVASTATIN 20 MG TAB PO SCH (18:07)
[2021-10-11 21:22] LABS: HEMATOCRIT 29.4 % (42.0-52.0); HEMOGLOBIN 9.6 g/dl (13.5-17.5)
[2021-10-11] MEDS: OMEPRAZOLE 20MG CAP PO SCH (21:54)
[2021-10-11] MEDS: TAMSULOSIN 0.4 MG CAP PO SCH (21:54)
[2021-10-11] MEDS: traZODone 100 MG TAB PO SCH (21:54)
[2021-10-12 01:10] VITALS: O2SAT 96
[2021-10-12 02:00] VITALS: BP 127/60
[2021-10-12 03:21] LABS: HEMATOCRIT 29.2 % (42.0-52.0); HEMOGLOBIN 9.5 g/dl (13.5-17.5)
[2021-10-12 06:00] VITALS: BP 144/56
[2021-10-12] MEDS: ADVAIR HFA 230/21MCG INHALER INH SCH (07:20)
[2021-10-12 07:37] LABS: HEMATOCRIT 29.5 % (42.0-52.0); HEMOGLOBIN 9.6 g/dl (13.5-17.5); MEAN CORPUSCULAR HEMOGLOBIN 31.1 pg (27.0-33.0); MEAN CORPUSCULAR HGB CONC 32.5 g/dl (32.0-36.5); MEAN CORPUSCULAR VOLUME 95.5 fl (80.0-96.0); PLATELET COUNT, AUTOMATED 103 10^3/uL (150-450); RED BLOOD COUNT 3.09 10^6/uL (4.30-6.10)
[2021-10-12 07:49] LABS: INR 1.09; PROTHROMBIN TIME 14.5 SECONDS (12.7-14.5)
[2021-10-12 08:10] LABS: CALCIUM LEVEL 6.8 MG/DL (8.8-10.2); CREATININE FOR GFR 5.19 MG/DL (0.70-1.30); GLOMERULAR FILTRATION RATE 11.8 (>42); POTASSIUM SERUM 4.4 MEQ/L (3.5-5.1)
[2021-10-12] MEDS: DOCUSATE SODIUM 100MG CAPSULE PO SCH (08:52)
[2021-10-12] MEDS: SUCRALFATE 1 GM TAB PO SCH ×2 (08:52→10:29)
[2021-10-12] MEDS: OMEPRAZOLE 20MG CAP PO SCH (08:53)
[2021-10-12] MEDS: SENNA 8.6 MG TAB (SENOKOT) PO SCH (08:53)
[2021-10-12] MEDS: ENTRESTO 24-26MG TABLET (SACUBITRIL/VALSARTAN) PO SCH (08:54)
[2021-10-12 08:57] VITALS: BP 157/66
[2021-10-12] MEDS: bisoproloL fumarate 5 MG TAB PO SCH (08:57)
[2021-10-12] MEDS: LEVEMIR (INSULIN DETEMIR) 1 UNITS/0.01ML SC SCH (09:01)
[2021-10-12] MEDS: CALCIUM ACETATE 667MG GELCAP PO SCH ×2 (09:01→12:54)
[2021-10-12] MEDS: HumaLOG INSULIN (NovoLOG) PER UNIT SC SCH ×2 (09:02→12:55)
[2021-10-12] MEDS: FLUTICASONE PROP 0.05% NASAL SPRAY 16 GM (FLONASE) SCH (09:07)
[2021-10-12] MEDS: AZELASTINE 137MCG NASAL SPY 30 ML (ASTELIN) SCH (09:07)
[2021-10-12 10:00] VITALS: BP 175/79
[2021-10-12] MEDS: PRAMIPEXOLE 0.25 MG TAB PO SCH ×2 (10:29→12:54)
[2021-10-12] MEDS: clonazePAM 0.5 MG TAB PO SCH (10:29)
[2021-10-12] MEDS ORDERED: SUCR1TA PO ×2 (11:26→13:33)
[2021-10-12] MEDS ORDERED: INSULANT SC (11:26)
[2021-10-12] MEDS ORDERED: SENN18TA PO ×2 (11:26→13:33)
[2021-10-12] MEDS ORDERED: COLA100C5 PO ×2 (11:26→13:33)
[2021-10-13] MEDS ORDERED: VITAMIN D 50,000 UNITS CAPSULE (ERGOCALCIFEROL 1.25MG) PO SCH (09:00)
[2021-11-12] MEDS ORDERED: LIPI80TA PO (07:56)
[2021-11-12] MEDS ORDERED: ADVA230A INH (07:56)
[2021-11-12] MEDS ORDERED: MIRA0.254 PO (07:56)
[2021-11-12] MEDS ORDERED: WARF-23 PO (07:56)
[2021-11-12] MEDS ORDERED: PLAV1TAB2 PO (07:56)
[2021-11-12] MEDS ORDERED: WARF-58 PO (07:56)
== END 2021-10-12 14:28 | disposition home or self-care (01) | DRG 377 ==
LOC: M ED 16:59 → EDBD 16:59 → M ED INP 20:48 → M PCU 22:15 → M MSPAV 10-11 18:12
PROVIDERS: ADMIT Family Medicine; ATTEND Internal Medicine Nephrology
PROC: 30233N1 Transfusion of Nonautologous Red Blood Cells into Peripheral Vein, Percutaneous Approach (ICD-10-PCS; 2021-10-09)
PROC: 5A1D70Z Performance of Urinary Filtration, Intermittent, Less than 6 Hours Per Day (ICD-10-PCS; principal; 2021-10-10)
DX: K26.4 Chronic or unspecified duodenal ulcer with hemorrhage (principal); N18.6 End stage renal disease; N25.81 Secondary hyperparathyroidism of renal origin; I13.2 Hypertensive heart and chronic kidney disease with heart failure and with stage 5 chronic kidney disease, or end stage renal disease; I50.42 Chronic combined systolic (congestive) and diastolic (congestive) heart failure; D62 Acute posthemorrhagic anemia; D68.32 Hemorrhagic disorder due to extrinsic circulating anticoagulants; D63.1 Anemia in chronic kidney disease; E87.5 Hyperkalemia; E11.22 Type 2 diabetes mellitus with diabetic chronic kidney disease; G47.33 Obstructive sleep apnea (adult) (pediatric); J44.9 Chronic obstructive pulmonary disease, unspecified; I48.0 Paroxysmal atrial fibrillation; E78.00 Pure hypercholesterolemia, unspecified; M47.812 Spondylosis without myelopathy or radiculopathy, cervical region; K90.0 Celiac disease; I25.10 Atherosclerotic heart disease of native coronary artery without angina pectoris; E11.42 Type 2 diabetes mellitus with diabetic polyneuropathy; K22.70 Barrett's esophagus without dysplasia; D69.6 Thrombocytopenia, unspecified; M17.0 Bilateral primary osteoarthritis of knee; E11.65 Type 2 diabetes mellitus with hyperglycemia; I87.2 Venous insufficiency (chronic) (peripheral); G25.81 Restless legs syndrome; R91.1 Solitary pulmonary nodule; N40.0 Benign prostatic hyperplasia without lower urinary tract symptoms; Z86.73 Personal history of transient ischemic attack (TIA), and cerebral infarction without residual deficits; Z99.2 Dependence on renal dialysis; Z85.828 Personal history of other malignant neoplasm of skin; Z87.891 Personal history of nicotine dependence; Z79.4 Long term (current) use of insulin; Z79.82 Long term (current) use of aspirin; Z79.899 Other long term (current) drug therapy; Z98.1 Arthrodesis status; Z88.0 Allergy status to penicillin; Z95.5 Presence of coronary angioplasty implant and graft; Z88.1 Allergy status to other antibiotic agents; Z88.8 Allergy status to other drugs, medicaments and biological substances; Z79.01 Long term (current) use of anticoagulants; Z86.010 Personal history of colon polyps; Z87.442 Personal history of urinary calculi; Z86.718 Personal history of other venous thrombosis and embolism; Z88.6 Allergy status to analgesic agent; Z91.040 Latex allergy status

== ENCOUNTER → 2021-10-23 | Outpatient (CLI) | payer MEDICAID, MEDICARE ==
[~2021-10-23] MED LIST changes: +ARNU50IN INH; +ASPI-161 PO; +CLON0.5T2 PO; +COLA100C5 PO; +LIPI80TA PO; +MIRA0.254 PO; +ONDA4TAB6 PO; +SENN18TA PO; +SUCR1TA PO; +WARF-58 PO
[2021-10-23 13:30] LABS: BASO # 0.1 10^3/uL (0.0-0.2); BASO % 0.9 % (0.0-1.0); EOS # 0.5 10^3/uL (0.0-0.5); EOS % 7.1 % (0.0-3.0); HEMOGLOBIN 10.8 g/dl (13.5-17.5); LYMPH # 1.1 10^3/uL (1.5-5.0); LYMPH % 16.6 % (24.0-44.0); MEAN CORPUSCULAR HEMOGLOBIN 31.2 pg (27.0-33.0); MEAN CORPUSCULAR HGB CONC 31.8 g/dl (32.0-36.5); MEAN CORPUSCULAR VOLUME 98.3 fl (80.0-96.0); MONO # 0.6 10^3/uL (0.0-0.8); MONO % 8.3 % (2.0-8.0); NEUTROPHILS # 4.5 10^3/uL (1.5-8.5); NEUTROPHILS % 66.8 % (36.0-66.0); PLATELET COUNT, AUTOMATED 102 10^3/uL (150-450); RED BLOOD COUNT 3.46 10^6/uL (4.30-6.10); WHITE BLOOD COUNT 6.8 10^3/uL (4.0-10.0)
[2021-10-23 13:32] LABS: CALCIUM LEVEL 8.1 MG/DL (8.8-10.2); CREATININE FOR GFR 5.18 MG/DL (0.70-1.30); GLOMERULAR FILTRATION RATE 11.8 (>42); POTASSIUM SERUM 4.5 MEQ/L (3.5-5.1)
== END ==
LOC: M PLALAB 10:06
PROVIDERS: ATTEND Student in an Organized Health Care Education/Training Program
DX: E87.1 Hypo-osmolality and hyponatremia (principal); K92.1 Melena
CPT/HCPCS: 36415; 80048; 85025; G0463

== ENCOUNTER → 2021-10-30 | Outpatient (CLI) | payer MEDICARE ==
[~2021-10-30] MED LIST changes: +ISOVUE-370 76% 100ML VIAL As Ordered ONE; -LIPI80TA PO; -MIRA0.254 PO; -WARF-58 PO
== END ==
LOC: M RAD 09:04
PROVIDERS: ATTEND Student in an Organized Health Care Education/Training Program
DX: R93.3 Abnormal findings on diagnostic imaging of other parts of digestive tract (principal); K44.9 Diaphragmatic hernia without obstruction or gangrene; K80.20 Calculus of gallbladder without cholecystitis without obstruction; I77.4 Celiac artery compression syndrome
CPT/HCPCS: 74175; Q9967

== ENCOUNTER → 2021-11-13 | Outpatient (CLI) | payer MEDICARE ==
[~2021-11-13] MED LIST changes: -ISOVUE-370 76% 100ML VIAL As Ordered ONE; +LIPI80TA PO; +MIRA0.254 PO; +WARF-58 PO
== END ==
LOC: M LABSMTC 10:40
PROVIDERS: ATTEND Internal Medicine Gastroenterology
DX: Z01.812 Encounter for preprocedural laboratory examination (principal); Z11.52 Encounter for screening for COVID-19

== ENCOUNTER 2021-11-18 06:59 | Day surgery (SDC) | payer MEDICARE ==
[~2021-11-18] VITALS: Ht 172.7 cm; Wt 90.7 kg
[~2021-11-18 06:59] MED LIST changes: +NS 1,000 ML IV ONE; +SIMETHICONE 40MG/0.6ML DROPS 30ML As Ordered ONE
[2021-11-18] MEDS ORDERED: fentaNYL 100 MCG/2 ML INJECTION (J3010) As Ordered ONE (08:49)
[2021-11-18] MEDS ORDERED: propofoL 500 MG/50 ML VIAL As Ordered ONE ×2 (08:49→09:29)
[2021-11-18] MEDS ORDERED: LIDOCAINE 2% 100MG/5ML SDV (FOR ANES.) As Ordered ONE (08:49)
[2021-11-18] MEDS ORDERED: ePHEDrine SULFATE 25 MG/5 ML(5MG/ML) SYRINGE As Ordered ONE (09:29)
[2021-11-18 10:00] VITALS: BP 146/63
== END 2021-11-18 10:23 | disposition home or self-care (01) ==
LOC: M OPP 06:59
PROVIDERS: ATTEND Internal Medicine Gastroenterology
DX: Z98.890 Other specified postprocedural states (principal); Z86.010 Personal history of colon polyps; K62.1 Rectal polyp; K29.80 Duodenitis without bleeding; K22.89 Other specified disease of esophagus; K27.9 Peptic ulcer, site unspecified, unspecified as acute or chronic, without hemorrhage or perforation; R10.13 Epigastric pain; N18.6 End stage renal disease; Z99.2 Dependence on renal dialysis; Z79.01 Long term (current) use of anticoagulants; Z79.4 Long term (current) use of insulin; Z79.899 Other long term (current) drug therapy; Z88.0 Allergy status to penicillin; Z88.8 Allergy status to other drugs, medicaments and biological substances; Z91.030 Bee allergy status; Z95.5 Presence of coronary angioplasty implant and graft
CPT/HCPCS: 36415; 43239; 45338; 84132; 88305; J3010

== ENCOUNTER → 2021-12-04 | Outpatient (CLI) | payer MEDICARE, MEDICAID ==
[~2021-12-04] MED LIST changes: -NS 1,000 ML IV ONE; -SIMETHICONE 40MG/0.6ML DROPS 30ML As Ordered ONE
== END ==
LOC: M PAIN 11:15
PROVIDERS: ATTEND Anesthesiology
DX: E11.42 Type 2 diabetes mellitus with diabetic polyneuropathy (principal); M94.261 Chondromalacia, right knee; M22.41 Chondromalacia patellae, right knee; I87.2 Venous insufficiency (chronic) (peripheral); E78.5 Hyperlipidemia, unspecified; E11.22 Type 2 diabetes mellitus with diabetic chronic kidney disease; M18.4 Other bilateral secondary osteoarthritis of first carpometacarpal joints; J44.9 Chronic obstructive pulmonary disease, unspecified; F32.A Depression, unspecified; K21.9 Gastro-esophageal reflux disease without esophagitis; G25.81 Restless legs syndrome; K90.0 Celiac disease; G47.33 Obstructive sleep apnea (adult) (pediatric); Z79.01 Long term (current) use of anticoagulants; Z79.891 Long term (current) use of opiate analgesic; Z79.4 Long term (current) use of insulin; Z79.899 Other long term (current) drug therapy; Z88.0 Allergy status to penicillin; Z88.4 Allergy status to anesthetic agent; Z88.6 Allergy status to analgesic agent; Z88.8 Allergy status to other drugs, medicaments and biological substances; Z91.030 Bee allergy status

== ENCOUNTER → 2021-12-09 | Outpatient (REF) | payer MEDICARE, MEDICAID ==
[2021-12-11 13:08] LABS: CREATININE, URINE 40.8 mg/dL (20.0-300.0)
== END ==
LOC: M SFHCPLAZ 09:43
PROVIDERS: ATTEND Student in an Organized Health Care Education/Training Program
DX: Z79.891 Long term (current) use of opiate analgesic (principal)

== ENCOUNTER → 2021-12-16 | Outpatient (CLI) | payer MEDICARE, MEDICAID | LOC: M SOG 13:28 | PROVIDERS: ATTEND Orthopaedic Surgery Sports Medicine | DX: M17.0 Bilateral primary osteoarthritis of knee (principal) ==

== ENCOUNTER 2022-01-08 12:48 | Outpatient (RCR) | payer MEDICARE, MEDICAID ==
[2022-01-20] MEDS ORDERED: FLUO-96 PO (10:31)
[2022-01-20] MEDS ORDERED: ECOT81TA5 PO (10:31)
[2022-01-20] MEDS ORDERED: LANTINJ4 SC (10:31)
[2022-01-20] MEDS ORDERED: PRESCAP PO (10:31)
[2022-01-20] MEDS ORDERED: BUPR150T12 PO (10:31)
[2022-01-20] MEDS ORDERED: GABA-1171 PO (10:31)
== END 2022-01-22 ==
LOC: M PT 12:48
PROVIDERS: ATTEND Orthopaedic Surgery Adult Reconstructive Orthopaedic Surgery
DX: M17.12 Unilateral primary osteoarthritis, left knee (principal)

== ENCOUNTER → 2022-01-15 | Outpatient (CLI) | payer MEDICARE, MEDICAID | LOC: M RAD 16:09 | PROVIDERS: ATTEND Student in an Organized Health Care Education/Training Program | DX: R05.9 Cough, unspecified (principal) ==

== ENCOUNTER → 2022-01-15 | Outpatient (CLI) | payer MEDICARE, MEDICAID | LOC: M CLY 15:46 | PROVIDERS: ATTEND Family Medicine | DX: R05.9 Cough, unspecified (principal) ==

== ENCOUNTER → 2022-01-27 | Outpatient (CLI) | payer MEDICARE, MEDICAID ==
[~2022-01-27] MED LIST changes: +BUPR150T12 PO; +LANTINJ4 SC; +PRESCAP PO
== END ==
LOC: M RAD 08:44
PROVIDERS: ATTEND Orthopaedic Surgery Adult Reconstructive Orthopaedic Surgery
DX: M17.0 Bilateral primary osteoarthritis of knee (principal); K57.30 Diverticulosis of large intestine without perforation or abscess without bleeding

== ENCOUNTER 2022-02-01 17:13 | Inpatient (IN) | payer MEDICARE ==
[~2022-02-01] VITALS: Ht 172.7 cm; Wt 88.1 kg
[2022-02-01] MEDS ORDERED: ACETAMINOPHEN 650 MG SUPP PR ONE (17:55)
[2022-02-01 18:01] LABS: BASO % 0.2 % (0.0-1.0); EOS % 0.2 % (0.0-3.0); HEMATOCRIT 37.5 % (42.0-52.0); HEMOGLOBIN 12.6 g/dl (13.5-17.5); LYMPH # 0.8 10^3/uL (1.5-5.0); LYMPH % 8.1 % (24.0-44.0); MEAN CORPUSCULAR HEMOGLOBIN 31.6 pg (27.0-33.0); MEAN CORPUSCULAR HGB CONC 33.6 g/dl (32.0-36.5); MONO # 0.4 10^3/uL (0.0-0.8); MONO % 4.2 % (2.0-8.0); NEUTROPHILS # 8.8 10^3/uL (1.5-8.5); NEUTROPHILS % 86.8 % (36.0-66.0); RED BLOOD COUNT 3.99 10^6/uL (4.30-6.10); WHITE BLOOD COUNT 10.2 10^3/uL (4.0-10.0)
[2022-02-01 18:07] LABS: ABG BASE EXCESS -1.6 (-2.0-2.0); ABG HCO3 21.3 MEQ/L (22.0-26.0); ABG O2 SATURATION 93.1 % (95.0-99.0); ABG PARTIAL PRESSURE CO2 30.5 mmHg (35.0-45.0); ABG PARTIAL PRESSURE O2 65.9 mmHg (75.0-100.0); ABG STANDARD HCO3 23.1 MEQ/L (22.0-26.0); ABG TOTAL CO2 22.2 MEQ/L (23.0-31.0); ABG pH (ARTERIAL) 7.462 UNITS (7.350-7.450)
[2022-02-01 18:27] LABS: PLATELET COUNT, AUTOMATED 70 10^3/uL (150-450)
[2022-02-01 18:44] LABS: INR 2.14; PROTHROMBIN TIME 24.3 SECONDS (12.7-14.5)
[2022-02-01 18:45] LABS: PARTIAL THROMBOPLASTIN TIME 34.3 SECONDS (25.9-37.0)
[2022-02-01 18:50] LABS: CK-MB VALUE MASS < 1.0 NG/ML (<3.6); CPK CREATINE PHOSPHOKINASE 109 U/L (39-308); MB/CK RELATIVE INDEX 0.92 (< OR =4)
[2022-02-01 19:04] LABS: ALBUMIN 3.5 GM/DL (3.2-5.2); BILIRUBIN,DIRECT 0.2 MG/DL (0.0-0.2); BILIRUBIN,TOTAL 0.6 MG/DL (0.2-1.0); CALCIUM LEVEL 9.8 MG/DL (8.8-10.2); CREATININE FOR GFR 9.41 MG/DL (0.70-1.30); GLOMERULAR FILTRATION RATE 5.9 (>42); POTASSIUM SERUM 5.5 MEQ/L (3.5-5.1); THYROID STIMULATING HORMONE 2.97 uIU/ML (0.358-3.740); TOTAL PROTEIN 7.1 GM/DL (6.4-8.2)
[2022-02-01] MEDS ORDERED: VANCOMYCIN HCL 1,000 MG, VIAL MATE ADAPTER 1 EACH in NS 250 ML IV ONE (19:30)
[2022-02-01] MEDS ORDERED: FUROSEMIDE 40MG/4ML VIAL (J1940) IV ONE (19:30)
[2022-02-01] MEDS ORDERED: PIPERACILLIN/TAZOBACTAM SOD 2.25 GM in D5W MINI-BAG PLUS 50 ML IV ONE (19:30)
[2022-02-01] MEDS: ADVAIR HFA 230/21MCG INHALER INH SCH (20:00)
[2022-02-01] MEDS ORDERED: IBUPROFEN 100 MG/5 ML SUSP UDC DYE FREE PO ONE (20:00)
[2022-02-01] MEDS ORDERED: MIRA0.5T PO (20:12)
[2022-02-01] MEDS ORDERED: HOME MED LIST COMPLETE! XX SCH (20:15)
[2022-02-01] MEDS ORDERED: NS 1,000 ML IV SCH (23:15)
[2022-02-01] MEDS ORDERED: PIPERACILLIN/TAZOBACTAM SOD 4.5 GM in D5W MINI-BAG PLUS 50 ML IV SCH (23:15)
[2022-02-01] MEDS ORDERED: MOM 30ML SUSPENSION UDC PO PRN (23:15)
[2022-02-01] MEDS ORDERED: DEXTROSE 50% 50 ML SYRINGE IV PRN (23:20)
[2022-02-01] MEDS ORDERED: GLUCAGON INJ 1MG VIAL SC PRN (23:20)
[2022-02-01] MEDS ORDERED: GLUCOSE 4GM CHEW TABLET PO PRN (23:20)
[2022-02-01] MEDS ORDERED: VANCOMYCIN HCL 1,000 MG, VIAL MATE ADAPTER 1 EACH in NS 250 ML IV SCH (23:45)
[2022-02-02] VITALS (8 sets, daily range): BP systolic 93–134; BP diastolic 51–86; O2SAT 96–99
[2022-02-02] MEDS ORDERED: SOD POLYSTYRENE SULFONATE SUSP 15GM 60ML UD PO ONE
[2022-02-02] MEDS ORDERED: VANCOMYCIN HCL 500 MG in D5W MINI-BAG PLUS 100 ML IV ONE ×2
[2022-02-02] MEDS ORDERED: VANCOMYCIN HCL 500 MG in D5W MINI-BAG PLUS 100 ML IV SCH ×2
[2022-02-02] MEDS: ACETAMINOPHEN TAB 650MG DOSE (2X325MG) PO PRN (00:10)
[2022-02-02] MEDS: TAMSULOSIN 0.4 MG CAP PO SCH ×2 (00:10→20:33)
[2022-02-02] MEDS: WARFARIN SOD 4MG TAB PO SCH (02:33)
[2022-02-02] MEDS ORDERED: PIPERACILLIN/TAZOBACTAM SOD 2.25 GM in D5W MINI-BAG PLUS 50 ML IV SCH (04:00)
[2022-02-02] MEDS: IPRATROPIUM 0.5MG/ALBUTEROL 2.5MG INH SOL UD 3ML (DUONEB) INH SCH ×6 (04:47→20:08)
[2022-02-02] MEDS ORDERED: SODIUM CHLORIDE 0.9% 1000ML IV PRN (05:45)
[2022-02-02] MEDS ORDERED: LIDOCAINE 1% SDV 5ML VIAL SC PRN (05:45)
[2022-02-02 06:09] LABS: HEMATOCRIT 31.7 % (42.0-52.0); MEAN CORPUSCULAR HEMOGLOBIN 31.7 pg (27.0-33.0); MEAN CORPUSCULAR HGB CONC 33.1 g/dl (32.0-36.5); MEAN CORPUSCULAR VOLUME 95.8 fl (80.0-96.0); RED BLOOD COUNT 3.31 10^6/uL (4.30-6.10); WHITE BLOOD COUNT 10.6 10^3/uL (4.0-10.0)
[2022-02-02 06:10] LABS: HEMOGLOBIN 10.5 g/dl (13.5-17.5); PLATELET COUNT, AUTOMATED 46 10^3/uL (150-450)
[2022-02-02 06:43] LABS: ALBUMIN 2.9 GM/DL (3.2-5.2); BILIRUBIN,TOTAL 0.5 MG/DL (0.2-1.0); CALCIUM LEVEL 8.4 MG/DL (8.8-10.2); CREATININE FOR GFR 10.1 MG/DL (0.70-1.30); GLOMERULAR FILTRATION RATE 5.5 (>42); MAGNESIUM LEVEL 1.9 MG/DL (1.8-2.4); VANCOMYCIN RANDOM 21.2 UG/ML
[2022-02-02] MEDS: ADVAIR HFA 230/21MCG INHALER INH SCH ×2 (07:18→20:08)
[2022-02-02] MEDS: INSULIN LISPRO (NovoLOG) PER UNIT SC SCH ×4 (07:30→20:34)
[2022-02-02] MEDS: PANTOPRAZOLE 40MG TAB (PROTONIX) PO SCH (07:43)
[2022-02-02] MEDS: DOCUSATE SODIUM 100MG CAPSULE PO SCH ×2 (07:43→20:31)
[2022-02-02] MEDS: ASPIRIN 81MG ENTERIC TABLET PO SCH (07:43)
[2022-02-02] MEDS: CALCIUM ACETATE 667MG GELCAP PO SCH ×3 (07:43→18:19)
[2022-02-02] MEDS: MIRALAX *UNIT DOSE* 17GM PACKET PO SCH (07:44)
[2022-02-02] MEDS: buPROPion **XL** TABLET 150MG (WELLBUTRIN XL) PO SCH (07:44)
[2022-02-02] MEDS ORDERED: VANCOMYCIN HCL 1,000 MG, VIAL MATE ADAPTER 1 EACH in NS 250 ML IV SCH (08:00)
[2022-02-02] MEDS ORDERED: BUMETANIDE 1 MG TAB PO SCH (09:00)
[2022-02-02] MEDS: bisoproloL fumarate 5 MG TAB PO SCH (09:00)
[2022-02-02] MEDS: PRAMIPEXOLE 0.25 MG TAB PO SCH ×3 (12:54→20:32)
[2022-02-02] MEDS: MIDODRINE 5 MG TAB PO SCH ×2 (12:54→16:13)
[2022-02-02] MEDS: PIPERACILLIN/TAZOBACTAM SOD 4.5 GM in D5W MINI-BAG PLUS 50 ML IV SCH (12:56)
[2022-02-02] MEDS ORDERED: VANCOMYCIN HCL 750 MG, VIAL MATE ADAPTER 1 EACH in NS 250 ML IV SCH (16:00)
[2022-02-02] MEDS ORDERED: **VANCO AFTER HD** MISC XX SCH (16:00)
[2022-02-02] MEDS: ATORVASTATIN 20 MG TAB PO SCH (20:33)
[2022-02-02] MEDS ORDERED: WARFARIN SOD 5MG TAB PO SCH (21:00)
[2022-02-03] VITALS: BP 154/67
[2022-02-03] MEDS: IPRATROPIUM 0.5MG/ALBUTEROL 2.5MG INH SOL UD 3ML (DUONEB) INH SCH ×6 (00:22→19:22)
[2022-02-03] MEDS: PIPERACILLIN/TAZOBACTAM SOD 4.5 GM in D5W MINI-BAG PLUS 50 ML IV SCH ×2 (00:50→13:00)
[2022-02-03 04:00] VITALS: BP 106/51
[2022-02-03 07:02] LABS: INR 2.82
[2022-02-03] MEDS: ADVAIR HFA 230/21MCG INHALER INH SCH ×2 (07:13→19:22)
[2022-02-03] MEDS: INSULIN LISPRO (NovoLOG) PER UNIT SC SCH ×4 (07:30→20:36)
[2022-02-03] MEDS: MIDODRINE 5 MG TAB PO SCH ×3 (08:00→18:00)
[2022-02-03] MEDS: CALCIUM ACETATE 667MG GELCAP PO SCH ×3 (08:00→17:59)
[2022-02-03 08:09] VITALS: BP 169/71
[2022-02-03] MEDS ORDERED: BENZONATATE 100MG CAPSULE PO PRN (08:45)
[2022-02-03] MEDS: MIRALAX *UNIT DOSE* 17GM PACKET PO SCH (09:00)
[2022-02-03] MEDS: DOCUSATE SODIUM 100MG CAPSULE PO SCH ×2 (09:00→20:31)
[2022-02-03] MEDS ORDERED: INSULIN LISPRO (NovoLOG) PER UNIT SC STA (09:46)
[2022-02-03] MEDS: LEVEMIR (INSULIN DETEMIR) 1 UNITS/0.01ML SC SCH (10:43)
[2022-02-03] MEDS: PRAMIPEXOLE 0.25 MG TAB PO SCH ×3 (10:44→20:33)
[2022-02-03] MEDS: PANTOPRAZOLE 40MG TAB (PROTONIX) PO SCH (10:44)
[2022-02-03] MEDS: buPROPion **XL** TABLET 150MG (WELLBUTRIN XL) PO SCH (10:44)
[2022-02-03] MEDS: ASPIRIN 81MG ENTERIC TABLET PO SCH (10:44)
[2022-02-03] MEDS: bisoproloL fumarate 5 MG TAB PO SCH (10:45)
[2022-02-03] MEDS: ACETAMINOPHEN TAB 650MG DOSE (2X325MG) PO PRN ×2 (11:52→20:32)
[2022-02-03 13:04] VITALS: BP 128/58
[2022-02-03] MEDS: DOXYCYCLINE HYCLATE 100MG TABLET PO SCH ×2 (14:49→20:33)
[2022-02-03 17:17] LABS: MYCOPLASMA PNEUMONIAE IgG 194 U/mL (0-99); MYCOPLASMA PNEUMONIAE IgM <770 U/mL (0-769)
[2022-02-03 17:20] VITALS: BP 126/59
[2022-02-03 20:00] VITALS: BP 147/71
[2022-02-03] MEDS: traZODone 100 MG TAB PO SCH (20:31)
[2022-02-03] MEDS: clonazePAM 0.5 MG TAB PO SCH (20:32)
[2022-02-03] MEDS: TAMSULOSIN 0.4 MG CAP PO SCH (20:32)
[2022-02-03] MEDS: OCUVITE 1 TAB PO SCH (20:33)
[2022-02-03] MEDS: GABAPENTIN 100 MG CAP PO SCH (20:33)
[2022-02-03] MEDS: ATORVASTATIN 20 MG TAB PO SCH (21:00)
[2022-02-03] MEDS ORDERED: GABAPENTIN 100 MG CAP PO SCH (21:00)
[2022-02-04] VITALS: BP 130/61
[2022-02-04] MEDS: PIPERACILLIN/TAZOBACTAM SOD 4.5 GM in D5W MINI-BAG PLUS 50 ML IV SCH ×2 (00:08→11:39)
[2022-02-04] MEDS: IPRATROPIUM 0.5MG/ALBUTEROL 2.5MG INH SOL UD 3ML (DUONEB) INH SCH ×6 (04:33→19:33)
[2022-02-04 06:29] LABS: INR 2.42; PROTHROMBIN TIME 26.7 SECONDS (12.7-14.5)
[2022-02-04] MEDS ORDERED: SODIUM CHLORIDE 0.9% 1000ML IV PRN (06:30)
[2022-02-04] MEDS ORDERED: LIDOCAINE 1% SDV 5ML VIAL SC PRN (06:30)
[2022-02-04] MEDS: INSULIN LISPRO (NovoLOG) PER UNIT SC SCH ×4 (06:31→20:30)
[2022-02-04] MEDS: ADVAIR HFA 230/21MCG INHALER INH SCH ×2 (07:14→19:33)
[2022-02-04 07:22] LABS: HEMATOCRIT 28.2 % (42.0-52.0); HEMOGLOBIN 9.4 g/dl (13.5-17.5); MEAN CORPUSCULAR HEMOGLOBIN 31.8 pg (27.0-33.0); MEAN CORPUSCULAR HGB CONC 33.3 g/dl (32.0-36.5); MEAN CORPUSCULAR VOLUME 95.3 fl (80.0-96.0); RED BLOOD COUNT 2.96 10^6/uL (4.30-6.10); WHITE BLOOD COUNT 4.4 10^3/uL (4.0-10.0)
[2022-02-04 07:24] LABS: PLATELET COUNT, AUTOMATED 46 10^3/uL (150-450)
[2022-02-04] MEDS: PRAMIPEXOLE 0.25 MG TAB PO SCH ×3 (07:32→20:28)
[2022-02-04] MEDS: OCUVITE 1 TAB PO SCH ×2 (07:32→20:29)
[2022-02-04 07:33] LABS: ALBUMIN 2.7 GM/DL (3.2-5.2); CALCIUM LEVEL 8.2 MG/DL (8.8-10.2); CREATININE FOR GFR 8.67 MG/DL (0.70-1.30); GLOMERULAR FILTRATION RATE 6.5 (>42); MAGNESIUM LEVEL 1.6 MG/DL (1.8-2.4); PHOSPHORUS LEVEL 2.8 MG/DL (2.5-4.9); POTASSIUM SERUM 4.3 MEQ/L (3.5-5.1)
[2022-02-04] MEDS: OMEGA-3 1000MG CAPSULE PO SCH (07:33)
[2022-02-04] MEDS: buPROPion **XL** TABLET 150MG (WELLBUTRIN XL) PO SCH (07:33)
[2022-02-04] MEDS: CALCIUM ACETATE 667MG GELCAP PO SCH ×3 (07:34→17:56)
[2022-02-04] MEDS: clonazePAM 0.5 MG TAB PO SCH ×2 (07:34→20:28)
[2022-02-04] MEDS: MIDODRINE 5 MG TAB PO SCH ×3 (07:34→17:39)
[2022-02-04] MEDS: ASPIRIN 81MG ENTERIC TABLET PO SCH (07:35)
[2022-02-04] MEDS: bisoproloL fumarate 5 MG TAB PO SCH (07:37)
[2022-02-04] MEDS: PANTOPRAZOLE 40MG TAB (PROTONIX) PO SCH (07:37)
[2022-02-04] MEDS: DOXYCYCLINE HYCLATE 100MG TABLET PO SCH ×2 (07:37→20:28)
[2022-02-04] MEDS: DOCUSATE SODIUM 100MG CAPSULE PO SCH ×2 (07:38→20:29)
[2022-02-04] MEDS: MIRALAX *UNIT DOSE* 17GM PACKET PO SCH (07:38)
[2022-02-04] MEDS: LEVEMIR (INSULIN DETEMIR) 1 UNITS/0.01ML SC SCH (07:46)
[2022-02-04 08:00] VITALS: BP 143/65
[2022-02-04] MEDS: ENTRESTO 24-26MG TABLET (SACUBITRIL/VALSARTAN) PO SCH (09:39)
[2022-02-04 11:19] VITALS: BP 120/60
[2022-02-04] MEDS: AZELASTINE 137MCG NASAL SPY 30 ML (ASTELIN) SCH (11:37)
[2022-02-04] MEDS: DARBEPOETIN 100 MCG/0.5 ML *DIALYSIS* SYRINGE (J0882) IV SCH (14:36)
[2022-02-04 17:22] VITALS: BP 132/72
[2022-02-04] MEDS: WARFARIN SOD 4MG TAB PO SCH (17:56)
[2022-02-04] MEDS: BUPRENORPHINE 20 MCG/HR TOP SCH (18:01)
[2022-02-04 20:00] VITALS: BP 131/60
[2022-02-04] MEDS: ATORVASTATIN 20 MG TAB PO SCH (20:28)
[2022-02-04] MEDS: TAMSULOSIN 0.4 MG CAP PO SCH (20:29)
[2022-02-04] MEDS: GABAPENTIN 100 MG CAP PO SCH (20:29)
[2022-02-04] MEDS: traZODone 100 MG TAB PO SCH (20:29)
[2022-02-04] MEDS: ACETAMINOPHEN TAB 650MG DOSE (2X325MG) PO PRN (21:00)
[2022-02-05] MEDS: PIPERACILLIN/TAZOBACTAM SOD 4.5 GM in D5W MINI-BAG PLUS 50 ML IV SCH (00:22)
[2022-02-05] MEDS: IPRATROPIUM 0.5MG/ALBUTEROL 2.5MG INH SOL UD 3ML (DUONEB) INH SCH ×6 (03:32→19:54)
[2022-02-05 04:00] VITALS: BP 132/65
[2022-02-05] MEDS: ACETAMINOPHEN TAB 650MG DOSE (2X325MG) PO PRN (04:12)
[2022-02-05 05:06] LABS: HEMATOCRIT 28.9 % (42.0-52.0); HEMOGLOBIN 9.4 g/dl (13.5-17.5); MEAN CORPUSCULAR HEMOGLOBIN 31.2 pg (27.0-33.0); MEAN CORPUSCULAR HGB CONC 32.5 g/dl (32.0-36.5); RED BLOOD COUNT 3.01 10^6/uL (4.30-6.10); WHITE BLOOD COUNT 3.2 10^3/uL (4.0-10.0)
[2022-02-05 05:07] LABS: PLATELET COUNT, AUTOMATED 47 10^3/uL (150-450)
[2022-02-05 05:15] LABS: INR 1.82; PROTHROMBIN TIME 21.5 SECONDS (12.7-14.5)
[2022-02-05 05:33] LABS: CALCIUM LEVEL 8.7 MG/DL (8.8-10.2); CREATININE FOR GFR 5.48 MG/DL (0.70-1.30); MAGNESIUM LEVEL 1.8 MG/DL (1.8-2.4); POTASSIUM SERUM 4.1 MEQ/L (3.5-5.1)
[2022-02-05] MEDS: ADVAIR HFA 230/21MCG INHALER INH SCH ×2 (07:23→19:54)
[2022-02-05] MEDS ORDERED: VANCOMYCIN HCL 1,000 MG, VIAL MATE ADAPTER 1 EACH in NS 250 ML IV SCH (07:55)
[2022-02-05 08:19] LABS: VANCOMYCIN RANDOM 18.7 UG/ML
[2022-02-05 08:30] VITALS: BP 128/58
[2022-02-05] MEDS: DOCUSATE SODIUM 100MG CAPSULE PO SCH ×2 (09:00→20:15)
[2022-02-05] MEDS: MIRALAX *UNIT DOSE* 17GM PACKET PO SCH (09:00)
[2022-02-05] MEDS: ENTRESTO 24-26MG TABLET (SACUBITRIL/VALSARTAN) PO SCH (09:17)
[2022-02-05] MEDS: clonazePAM 0.5 MG TAB PO SCH ×2 (09:17→20:14)
[2022-02-05] MEDS: INSULIN LISPRO (NovoLOG) PER UNIT SC SCH ×4 (09:17→20:14)
[2022-02-05] MEDS: PANTOPRAZOLE 40MG TAB (PROTONIX) PO SCH (09:17)
[2022-02-05] MEDS: LEVEMIR (INSULIN DETEMIR) 1 UNITS/0.01ML SC SCH (09:17)
[2022-02-05] MEDS: OCUVITE 1 TAB PO SCH ×2 (09:18→20:15)
[2022-02-05] MEDS: MIDODRINE 5 MG TAB PO SCH ×3 (09:18→16:35)
[2022-02-05] MEDS: PRAMIPEXOLE 0.25 MG TAB PO SCH ×3 (09:18→20:14)
[2022-02-05] MEDS: bisoproloL fumarate 5 MG TAB PO SCH (09:18)
[2022-02-05] MEDS: ASPIRIN 81MG ENTERIC TABLET PO SCH (09:18)
[2022-02-05] MEDS: CALCIUM ACETATE 667MG GELCAP PO SCH ×3 (09:18→18:03)
[2022-02-05] MEDS: buPROPion **XL** TABLET 150MG (WELLBUTRIN XL) PO SCH (09:19)
[2022-02-05] MEDS: OMEGA-3 1000MG CAPSULE PO SCH (09:19)
[2022-02-05] MEDS: AZELASTINE 137MCG NASAL SPY 30 ML (ASTELIN) SCH (09:19)
[2022-02-05] MEDS ORDERED: MEROPENEM INJ 1 GM in IV 1 EA IV ONE (10:00)
[2022-02-05 12:45] VITALS: BP 125/58
[2022-02-05 15:10] LABS: CHLAMYDIA PNEUMONIAE IgM <1:10 (Neg:<1:10)
[2022-02-05 15:55] VITALS: BP 129/70
[2022-02-05] MEDS ORDERED: VANCOMYCIN HCL 500 MG in D5W MINI-BAG PLUS 100 ML IV SCH (16:00)
[2022-02-05] MEDS: **VANCO AFTER HD** MISC XX SCH (16:00)
[2022-02-05 16:16] LABS: BODY FLUID CULTURE Not indicated. (.); LEGIONELLA ANTIGEN URINE Negative (Negative); ORGANISM ID Not indicated. (.); SPECIMEN SOURCE Urine (.); URINE STREP PNEUMONIAE ANTIGEN Negative (Negative)
[2022-02-05] MEDS: WARFARIN SOD 4MG TAB PO SCH (16:35)
[2022-02-05 19:31] VITALS: BP 149/72
[2022-02-05] MEDS: GABAPENTIN 100 MG CAP PO SCH (20:15)
[2022-02-05] MEDS: TAMSULOSIN 0.4 MG CAP PO SCH (20:15)
[2022-02-05] MEDS: ATORVASTATIN 20 MG TAB PO SCH (20:15)
[2022-02-05] MEDS: traZODone 100 MG TAB PO SCH (20:15)
[2022-02-06] MEDS: IPRATROPIUM 0.5MG/ALBUTEROL 2.5MG INH SOL UD 3ML (DUONEB) INH SCH ×6 (00:49→19:34)
[2022-02-06] MEDS ORDERED: guaiFENesin DM *SUGAR FREE* 5ML**DIABETIC TUSSIN DM PO ONE (01:10)
[2022-02-06 03:52] VITALS: BP 146/64
[2022-02-06 05:03] LABS: HEMATOCRIT 27.7 % (42.0-52.0); HEMOGLOBIN 9.1 g/dl (13.5-17.5); MEAN CORPUSCULAR HEMOGLOBIN 31.8 pg (27.0-33.0); MEAN CORPUSCULAR HGB CONC 32.9 g/dl (32.0-36.5); MEAN CORPUSCULAR VOLUME 96.9 fl (80.0-96.0); RED BLOOD COUNT 2.86 10^6/uL (4.30-6.10); WHITE BLOOD COUNT 3.4 10^3/uL (4.0-10.0)
[2022-02-06 05:13] LABS: INR 2.34
[2022-02-06 05:17] LABS: PLATELET COUNT, AUTOMATED 57 10^3/uL (150-450)
[2022-02-06 05:23] LABS: CALCIUM LEVEL 8.8 MG/DL (8.8-10.2); CREATININE FOR GFR 7.09 MG/DL (0.70-1.30); GLOMERULAR FILTRATION RATE 8.2 (>42); MAGNESIUM LEVEL 1.5 MG/DL (1.8-2.4); POTASSIUM SERUM 4.3 MEQ/L (3.5-5.1)
[2022-02-06] MEDS ORDERED: LIDOCAINE 1% SDV 5ML VIAL SC PRN (05:40)
[2022-02-06] MEDS ORDERED: SODIUM CHLORIDE 0.9% 1000ML IV PRN (05:40)
[2022-02-06] MEDS: ADVAIR HFA 230/21MCG INHALER INH SCH ×2 (07:29→19:35)
[2022-02-06 07:58] VITALS: BP 145/66
[2022-02-06] MEDS: INSULIN LISPRO (NovoLOG) PER UNIT SC SCH ×4 (07:58→20:18)
[2022-02-06] MEDS: LEVEMIR (INSULIN DETEMIR) 1 UNITS/0.01ML SC SCH (07:59)
[2022-02-06] MEDS: MIDODRINE 5 MG TAB PO SCH ×3 (07:59→16:00)
[2022-02-06] MEDS: CALCIUM ACETATE 667MG GELCAP PO SCH ×3 (12:30→17:14)
[2022-02-06 12:44] VITALS: BP 142/66
[2022-02-06] MEDS: bisoproloL fumarate 5 MG TAB PO SCH (13:19)
[2022-02-06] MEDS: buPROPion **XL** TABLET 150MG (WELLBUTRIN XL) PO SCH (13:19)
[2022-02-06] MEDS: OCUVITE 1 TAB PO SCH ×2 (13:19→20:18)
[2022-02-06] MEDS: PANTOPRAZOLE 40MG TAB (PROTONIX) PO SCH (13:19)
[2022-02-06] MEDS: PRAMIPEXOLE 0.25 MG TAB PO SCH ×3 (13:19→20:17)
[2022-02-06] MEDS: MIRALAX *UNIT DOSE* 17GM PACKET PO SCH (13:20)
[2022-02-06] MEDS: DOCUSATE SODIUM 100MG CAPSULE PO SCH ×2 (13:20→20:17)
[2022-02-06] MEDS: ASPIRIN 81MG ENTERIC TABLET PO SCH (13:20)
[2022-02-06] MEDS: ENTRESTO 24-26MG TABLET (SACUBITRIL/VALSARTAN) PO SCH (13:20)
[2022-02-06] MEDS: clonazePAM 0.5 MG TAB PO SCH ×2 (13:20→20:17)
[2022-02-06] MEDS: OMEGA-3 1000MG CAPSULE PO SCH (13:20)
[2022-02-06] MEDS: AZELASTINE 137MCG NASAL SPY 30 ML (ASTELIN) SCH (13:21)
[2022-02-06] MEDS: MEROPENEM INJ 1 GM in IV 1 EA IV SCH (15:18)
[2022-02-06] MEDS ORDERED: MAGNESIUM OXIDE 400MG TAB (MAG-OX) PO ONE (15:30)
[2022-02-06] MEDS: **VANCO AFTER HD** MISC XX SCH (15:56)
[2022-02-06 16:00] VITALS: BP 159/67
[2022-02-06] MEDS: WARFARIN SOD 4MG TAB PO SCH (17:14)
[2022-02-06 20:00] VITALS: BP 133/63
[2022-02-06] MEDS: traZODone 100 MG TAB PO SCH (20:17)
[2022-02-06] MEDS: GABAPENTIN 100 MG CAP PO SCH (20:17)
[2022-02-06] MEDS: TAMSULOSIN 0.4 MG CAP PO SCH (20:17)
[2022-02-06] MEDS: ACETAMINOPHEN TAB 650MG DOSE (2X325MG) PO PRN (20:17)
[2022-02-06] MEDS: ATORVASTATIN 20 MG TAB PO SCH (20:20)
[2022-02-07] VITALS (8 sets, daily range): BP systolic 126–153; BP diastolic 58–78
[2022-02-07] MEDS: IPRATROPIUM 0.5MG/ALBUTEROL 2.5MG INH SOL UD 3ML (DUONEB) INH SCH ×6 (04:00→19:14)
[2022-02-07 07:03] LABS: HEMATOCRIT 29.9 % (42.0-52.0); HEMOGLOBIN 9.6 g/dl (13.5-17.5); MEAN CORPUSCULAR HEMOGLOBIN 31.8 pg (27.0-33.0); MEAN CORPUSCULAR HGB CONC 32.1 g/dl (32.0-36.5); RED BLOOD COUNT 3.02 10^6/uL (4.30-6.10); WHITE BLOOD COUNT 3.1 10^3/uL (4.0-10.0)
[2022-02-07 07:10] LABS: PLATELET COUNT, AUTOMATED 75 10^3/uL (150-450)
[2022-02-07 07:15] LABS: INR 2.47; PROTHROMBIN TIME 27.1 SECONDS (12.7-14.5)
[2022-02-07] MEDS: INSULIN LISPRO (NovoLOG) PER UNIT SC SCH ×5 (07:30→19:47)
[2022-02-07 07:32] LABS: CALCIUM LEVEL 8.7 MG/DL (8.8-10.2); CREATININE FOR GFR 5.82 MG/DL (0.70-1.30); GLOMERULAR FILTRATION RATE 10.3 (>42); MAGNESIUM LEVEL 1.6 MG/DL (1.8-2.4); POTASSIUM SERUM 4.4 MEQ/L (3.5-5.1); VANCOMYCIN RANDOM 15.1 UG/ML
[2022-02-07] MEDS: ADVAIR HFA 230/21MCG INHALER INH SCH ×2 (07:39→19:14)
[2022-02-07] MEDS ORDERED: MAGNESIUM OXIDE 400MG TAB (MAG-OX) PO ONE (07:55)
[2022-02-07] MEDS: LEVEMIR (INSULIN DETEMIR) 1 UNITS/0.01ML SC SCH (08:25)
[2022-02-07] MEDS: MIRALAX *UNIT DOSE* 17GM PACKET PO SCH (08:25)
[2022-02-07] MEDS: bisoproloL fumarate 5 MG TAB PO SCH (08:26)
[2022-02-07] MEDS: ASPIRIN 81MG ENTERIC TABLET PO SCH (08:26)
[2022-02-07] MEDS: ENTRESTO 24-26MG TABLET (SACUBITRIL/VALSARTAN) PO SCH (08:27)
[2022-02-07] MEDS: PANTOPRAZOLE 40MG TAB (PROTONIX) PO SCH (08:27)
[2022-02-07] MEDS: CALCIUM ACETATE 667MG GELCAP PO SCH (08:27)
[2022-02-07] MEDS: DOCUSATE SODIUM 100MG CAPSULE PO SCH ×2 (08:27→19:47)
[2022-02-07] MEDS: MIDODRINE 5 MG TAB PO SCH ×3 (08:27→17:10)
[2022-02-07] MEDS: PRAMIPEXOLE 0.25 MG TAB PO SCH ×3 (08:27→19:45)
[2022-02-07] MEDS: OCUVITE 1 TAB PO SCH ×2 (08:27→19:47)
[2022-02-07] MEDS: OMEGA-3 1000MG CAPSULE PO SCH (08:27)
[2022-02-07] MEDS: clonazePAM 0.5 MG TAB PO SCH ×2 (08:27→19:46)
[2022-02-07] MEDS: AZELASTINE 137MCG NASAL SPY 30 ML (ASTELIN) SCH (08:28)
[2022-02-07] MEDS: buPROPion **XL** TABLET 150MG (WELLBUTRIN XL) PO SCH (08:28)
[2022-02-07] MEDS: SUCROFERRIC OXYHYDROXIDE 500MG CHEW TAB (VELPHORO) PO SCH ×2 (14:05→17:09)
[2022-02-07] MEDS: MEROPENEM INJ 1 GM in IV 1 EA IV SCH (17:09)
[2022-02-07] MEDS ORDERED: VANCOMYCIN HCL 500 MG in D5W MINI-BAG PLUS 100 ML IV ONE (18:00)
[2022-02-07] MEDS: ATORVASTATIN 20 MG TAB PO SCH (19:43)
[2022-02-07] MEDS: traZODone 100 MG TAB PO SCH (19:45)
[2022-02-07] MEDS: TAMSULOSIN 0.4 MG CAP PO SCH (19:45)
[2022-02-07] MEDS: GABAPENTIN 100 MG CAP PO SCH (19:46)
[2022-02-07] MEDS: ACETAMINOPHEN TAB 650MG DOSE (2X325MG) PO PRN (19:48)
[2022-02-08] MEDS: IPRATROPIUM 0.5MG/ALBUTEROL 2.5MG INH SOL UD 3ML (DUONEB) INH SCH ×6 (04:00→19:45)
[2022-02-08 06:00] VITALS: BP 133/75
[2022-02-08 07:22] LABS: HEMATOCRIT 28.2 % (42.0-52.0); HEMOGLOBIN 9.1 g/dl (13.5-17.5); MEAN CORPUSCULAR HEMOGLOBIN 31.4 pg (27.0-33.0); MEAN CORPUSCULAR HGB CONC 32.3 g/dl (32.0-36.5); MEAN CORPUSCULAR VOLUME 97.2 fl (80.0-96.0); WHITE BLOOD COUNT 2.6 10^3/uL (4.0-10.0)
[2022-02-08 07:27] LABS: PLATELET COUNT, AUTOMATED 74 10^3/uL (150-450)
[2022-02-08] MEDS: ADVAIR HFA 230/21MCG INHALER INH SCH ×2 (07:31→19:45)
[2022-02-08 07:43] LABS: INR 2.04; PROTHROMBIN TIME 23.4 SECONDS (12.7-14.5)
[2022-02-08 07:47] LABS: CALCIUM LEVEL 8.4 MG/DL (8.8-10.2); CREATININE FOR GFR 7.6 MG/DL (0.70-1.30); GLOMERULAR FILTRATION RATE 7.6 (>42); MAGNESIUM LEVEL 1.6 MG/DL (1.8-2.4); POTASSIUM SERUM 5.1 MEQ/L (3.5-5.1)
[2022-02-08] MEDS: SUCROFERRIC OXYHYDROXIDE 500MG CHEW TAB (VELPHORO) PO SCH ×3 (08:13→17:36)
[2022-02-08] MEDS: OMEGA-3 1000MG CAPSULE PO SCH (08:14)
[2022-02-08] MEDS: MIDODRINE 5 MG TAB PO SCH ×3 (08:14→16:42)
[2022-02-08] MEDS: INSULIN LISPRO (NovoLOG) PER UNIT SC SCH ×4 (08:14→21:00)
[2022-02-08] MEDS: APIXABAN 5 MG TAB (ELIQUIS) PO SCH ×2 (08:14→20:42)
[2022-02-08] MEDS: LEVEMIR (INSULIN DETEMIR) 1 UNITS/0.01ML SC SCH (08:14)
[2022-02-08] MEDS: PRAMIPEXOLE 0.25 MG TAB PO SCH ×3 (08:15→20:43)
[2022-02-08] MEDS: OCUVITE 1 TAB PO SCH ×2 (08:15→20:42)
[2022-02-08] MEDS: buPROPion **XL** TABLET 150MG (WELLBUTRIN XL) PO SCH (08:15)
[2022-02-08] MEDS: ENTRESTO 24-26MG TABLET (SACUBITRIL/VALSARTAN) PO SCH (08:15)
[2022-02-08] MEDS: bisoproloL fumarate 5 MG TAB PO SCH (08:15)
[2022-02-08] MEDS: PANTOPRAZOLE 40MG TAB (PROTONIX) PO SCH (08:16)
[2022-02-08] MEDS: MIRALAX *UNIT DOSE* 17GM PACKET PO SCH (08:16)
[2022-02-08] MEDS: DOCUSATE SODIUM 100MG CAPSULE PO SCH ×2 (08:16→20:43)
[2022-02-08] MEDS: clonazePAM 0.5 MG TAB PO SCH ×2 (08:16→20:43)
[2022-02-08] MEDS: ASPIRIN 81MG ENTERIC TABLET PO SCH (08:18)
[2022-02-08] MEDS: AZELASTINE 137MCG NASAL SPY 30 ML (ASTELIN) SCH (09:38)
[2022-02-08] MEDS: MAGNESIUM OXIDE 400MG TAB (MAG-OX) PO SCH ×2 (09:47→20:43)
[2022-02-08 14:00] VITALS: BP 131/60
[2022-02-08] MEDS ORDERED: VANCOMYCIN HCL 750 MG, VIAL MATE ADAPTER 1 EACH in NS 250 ML IV SCH (16:00)
[2022-02-08] MEDS: **VANCO AFTER HD** MISC XX SCH (16:00)
[2022-02-08] MEDS: MEROPENEM INJ 1 GM in IV 1 EA IV SCH (16:43)
[2022-02-08] MEDS: ACETAMINOPHEN TAB 650MG DOSE (2X325MG) PO PRN (20:42)
[2022-02-08] MEDS: GABAPENTIN 100 MG CAP PO SCH (20:42)
[2022-02-08] MEDS: traZODone 100 MG TAB PO SCH (20:42)
[2022-02-08] MEDS: ATORVASTATIN 20 MG TAB PO SCH (20:42)
[2022-02-08] MEDS: TAMSULOSIN 0.4 MG CAP PO SCH (20:43)
[2022-02-08 22:00] VITALS: BP 114/58
[2022-02-09] MEDS: IPRATROPIUM 0.5MG/ALBUTEROL 2.5MG INH SOL UD 3ML (DUONEB) INH SCH ×6 (01:16→19:49)
[2022-02-09 06:00] VITALS: BP 123/65
[2022-02-09] MEDS ORDERED: LIDOCAINE 1% SDV 5ML VIAL SC PRN (06:00)
[2022-02-09] MEDS ORDERED: SODIUM CHLORIDE 0.9% 1000ML IV PRN (06:00)
[2022-02-09 06:52] LABS: HEMOGLOBIN 9.1 g/dl (13.5-17.5); MEAN CORPUSCULAR HEMOGLOBIN 31.2 pg (27.0-33.0); MEAN CORPUSCULAR HGB CONC 32.5 g/dl (32.0-36.5); MEAN CORPUSCULAR VOLUME 95.9 fl (80.0-96.0); RED BLOOD COUNT 2.92 10^6/uL (4.30-6.10)
[2022-02-09 06:53] LABS: PLATELET COUNT, AUTOMATED 78 10^3/uL (150-450)
[2022-02-09 07:01] LABS: INR 1.77
[2022-02-09 07:07] LABS: CALCIUM LEVEL 8.4 MG/DL (8.8-10.2); CREATININE FOR GFR 9.4 MG/DL (0.70-1.30); GLOMERULAR FILTRATION RATE 5.9 (>42); MAGNESIUM LEVEL 1.8 MG/DL (1.8-2.4); POTASSIUM SERUM 5.6 MEQ/L (3.5-5.1)
[2022-02-09] MEDS: PANTOPRAZOLE 40MG TAB (PROTONIX) PO SCH (07:28)
[2022-02-09] MEDS: DOCUSATE SODIUM 100MG CAPSULE PO SCH ×2 (07:28→20:50)
[2022-02-09] MEDS: MAGNESIUM OXIDE 400MG TAB (MAG-OX) PO SCH ×2 (07:29→20:51)
[2022-02-09] MEDS: MIDODRINE 5 MG TAB PO SCH ×3 (07:29→15:44)
[2022-02-09] MEDS: OMEGA-3 1000MG CAPSULE PO SCH (07:29)
[2022-02-09] MEDS: buPROPion **XL** TABLET 150MG (WELLBUTRIN XL) PO SCH (07:29)
[2022-02-09] MEDS: APIXABAN 5 MG TAB (ELIQUIS) PO SCH ×2 (07:29→20:50)
[2022-02-09] MEDS: OCUVITE 1 TAB PO SCH ×2 (07:30→20:50)
[2022-02-09] MEDS: SUCROFERRIC OXYHYDROXIDE 500MG CHEW TAB (VELPHORO) PO SCH ×3 (07:30→17:20)
[2022-02-09] MEDS: PRAMIPEXOLE 0.25 MG TAB PO SCH ×3 (07:30→20:50)
[2022-02-09] MEDS: clonazePAM 0.5 MG TAB PO SCH ×2 (07:30→21:07)
[2022-02-09] MEDS: AZELASTINE 137MCG NASAL SPY 30 ML (ASTELIN) SCH (07:31)
[2022-02-09] MEDS: INSULIN LISPRO (NovoLOG) PER UNIT SC SCH ×4 (07:32→21:00)
[2022-02-09] MEDS: MIRALAX *UNIT DOSE* 17GM PACKET PO SCH (07:32)
[2022-02-09] MEDS: ASPIRIN 81MG ENTERIC TABLET PO SCH (07:32)
[2022-02-09] MEDS: LEVEMIR (INSULIN DETEMIR) 1 UNITS/0.01ML SC SCH (07:32)
[2022-02-09] MEDS: ADVAIR HFA 230/21MCG INHALER INH SCH ×2 (07:38→19:50)
[2022-02-09] MEDS: ENTRESTO 24-26MG TABLET (SACUBITRIL/VALSARTAN) PO SCH (12:50)
[2022-02-09] MEDS: bisoproloL fumarate 5 MG TAB PO SCH (12:50)
[2022-02-09 14:00] VITALS: BP 140/62
[2022-02-09] MEDS: **VANCO AFTER HD** MISC XX SCH (15:45)
[2022-02-09] MEDS: MEROPENEM INJ 1 GM in IV 1 EA IV SCH (17:19)
[2022-02-09] MEDS: ONDANSETRON 4MG ORAL DISINTEGRATING TAB PO PRN (17:25)
[2022-02-09] MEDS: traZODone 100 MG TAB PO SCH (20:50)
[2022-02-09] MEDS: ATORVASTATIN 20 MG TAB PO SCH (20:50)
[2022-02-09] MEDS: TAMSULOSIN 0.4 MG CAP PO SCH (20:50)
[2022-02-09] MEDS: GABAPENTIN 100 MG CAP PO SCH (20:50)
[2022-02-09] MEDS: ACETAMINOPHEN TAB 650MG DOSE (2X325MG) PO PRN (20:51)
[2022-02-10 06:00] VITALS: BP 124/54
[2022-02-10 07:00] LABS: HEMATOCRIT 29.7 % (42.0-52.0); HEMOGLOBIN 9.5 g/dl (13.5-17.5); MEAN CORPUSCULAR HEMOGLOBIN 31.1 pg (27.0-33.0); MEAN CORPUSCULAR VOLUME 97.4 fl (80.0-96.0); PLATELET COUNT, AUTOMATED 85 10^3/uL (150-450); RED BLOOD COUNT 3.05 10^6/uL (4.30-6.10); WHITE BLOOD COUNT 3.1 10^3/uL (4.0-10.0)
[2022-02-10 07:09] LABS: INR 1.79; PROTHROMBIN TIME 21.2 SECONDS (12.7-14.5)
[2022-02-10 07:30] LABS: C REACTIVE PROTEIN QUANTITATIV 1.59 MG/DL (0.00-0.30); CALCIUM LEVEL 8.4 MG/DL (8.8-10.2); CREATININE FOR GFR 6.46 MG/DL (0.70-1.30); GLOMERULAR FILTRATION RATE 9.1 (>42); POTASSIUM SERUM 4.8 MEQ/L (3.5-5.1); VANCOMYCIN RANDOM 14.8 UG/ML
[2022-02-10 07:50] VITALS: BP 130/60
[2022-02-10] MEDS: IPRATROPIUM 0.5MG/ALBUTEROL 2.5MG INH SOL UD 3ML (DUONEB) INH SCH ×4 (07:53→19:00)
[2022-02-10] MEDS: ADVAIR HFA 230/21MCG INHALER INH SCH ×2 (07:53→19:00)
[2022-02-10 08:00] VITALS: BP 130/60
[2022-02-10] MEDS: bisoproloL fumarate 5 MG TAB PO SCH ×2 (09:00→09:10)
[2022-02-10] MEDS: INSULIN LISPRO (NovoLOG) PER UNIT SC SCH ×4 (09:02→20:58)
[2022-02-10] MEDS: ASPIRIN 81MG ENTERIC TABLET PO SCH (09:03)
[2022-02-10] MEDS: LEVEMIR (INSULIN DETEMIR) 1 UNITS/0.01ML SC SCH (09:03)
[2022-02-10] MEDS: PRAMIPEXOLE 0.25 MG TAB PO SCH ×3 (09:03→20:18)
[2022-02-10] MEDS: PANTOPRAZOLE 40MG TAB (PROTONIX) PO SCH (09:05)
[2022-02-10] MEDS: SUCROFERRIC OXYHYDROXIDE 500MG CHEW TAB (VELPHORO) PO SCH ×3 (09:06→17:19)
[2022-02-10] MEDS: clonazePAM 0.5 MG TAB PO SCH ×2 (09:06→20:17)
[2022-02-10] MEDS: buPROPion **XL** TABLET 150MG (WELLBUTRIN XL) PO SCH (09:06)
[2022-02-10] MEDS: DOCUSATE SODIUM 100MG CAPSULE PO SCH ×2 (09:07→20:17)
[2022-02-10] MEDS: OMEGA-3 1000MG CAPSULE PO SCH (09:07)
[2022-02-10] MEDS: MAGNESIUM OXIDE 400MG TAB (MAG-OX) PO SCH ×2 (09:07→20:19)
[2022-02-10] MEDS: OCUVITE 1 TAB PO SCH ×2 (09:07→20:18)
[2022-02-10] MEDS: MIDODRINE 5 MG TAB PO SCH ×3 (09:09→16:20)
[2022-02-10] MEDS: MIRALAX *UNIT DOSE* 17GM PACKET PO SCH (09:09)
[2022-02-10] MEDS: APIXABAN 5 MG TAB (ELIQUIS) PO SCH ×2 (09:11→20:18)
[2022-02-10] MEDS: ENTRESTO 24-26MG TABLET (SACUBITRIL/VALSARTAN) PO SCH (09:12)
[2022-02-10] MEDS: AZELASTINE 137MCG NASAL SPY 30 ML (ASTELIN) SCH (09:12)
[2022-02-10] MEDS: MEROPENEM INJ 1 GM in IV 1 EA IV SCH (16:21)
[2022-02-10] MEDS: ATORVASTATIN 20 MG TAB PO SCH (20:17)
[2022-02-10] MEDS: GABAPENTIN 100 MG CAP PO SCH (20:18)
[2022-02-10] MEDS: traZODone 100 MG TAB PO SCH (20:18)
[2022-02-10] MEDS: TAMSULOSIN 0.4 MG CAP PO SCH (20:18)
[2022-02-10] MEDS: ACETAMINOPHEN TAB 650MG DOSE (2X325MG) PO PRN (20:18)
[2022-02-10 22:00] VITALS: BP 119/59
[2022-02-11] MEDS: MIRALAX *UNIT DOSE* 17GM PACKET PO SCH (05:52)
[2022-02-11] MEDS: ENTRESTO 24-26MG TABLET (SACUBITRIL/VALSARTAN) PO SCH (05:53)
[2022-02-11] MEDS: ASPIRIN 81MG ENTERIC TABLET PO SCH (05:53)
[2022-02-11] MEDS: OCUVITE 1 TAB PO SCH ×2 (05:53→20:56)
[2022-02-11] MEDS: DOCUSATE SODIUM 100MG CAPSULE PO SCH ×2 (05:53→20:55)
[2022-02-11] MEDS: bisoproloL fumarate 5 MG TAB PO SCH (05:53)
[2022-02-11] MEDS: clonazePAM 0.5 MG TAB PO SCH ×2 (05:54→20:56)
[2022-02-11] MEDS: PRAMIPEXOLE 0.25 MG TAB PO SCH ×3 (05:54→20:55)
[2022-02-11] MEDS: APIXABAN 5 MG TAB (ELIQUIS) PO SCH ×2 (05:56→20:56)
[2022-02-11] MEDS: buPROPion **XL** TABLET 150MG (WELLBUTRIN XL) PO SCH (05:56)
[2022-02-11] MEDS: PANTOPRAZOLE 40MG TAB (PROTONIX) PO SCH (05:56)
[2022-02-11] MEDS: MAGNESIUM OXIDE 400MG TAB (MAG-OX) PO SCH ×2 (05:57→20:56)
[2022-02-11] MEDS: OMEGA-3 1000MG CAPSULE PO SCH (05:57)
[2022-02-11] MEDS: MIDODRINE 5 MG TAB PO SCH ×3 (05:57→16:25)
[2022-02-11] MEDS: AZELASTINE 137MCG NASAL SPY 30 ML (ASTELIN) SCH (05:57)
[2022-02-11 06:00] VITALS: BP 123/64
[2022-02-11] MEDS ORDERED: SODIUM CHLORIDE 0.9% 1000ML IV PRN (06:00)
[2022-02-11] MEDS ORDERED: LIDOCAINE 1% SDV 5ML VIAL SC PRN (06:00)
[2022-02-11 07:11] LABS: HEMATOCRIT 29.1 % (42.0-52.0); HEMOGLOBIN 9.4 g/dl (13.5-17.5); MEAN CORPUSCULAR HEMOGLOBIN 31.3 pg (27.0-33.0); MEAN CORPUSCULAR HGB CONC 32.3 g/dl (32.0-36.5); PLATELET COUNT, AUTOMATED 83 10^3/uL (150-450)
[2022-02-11 07:20] LABS: INR 1.87; PROTHROMBIN TIME 21.9 SECONDS (12.7-14.5)
[2022-02-11 07:33] LABS: CALCIUM LEVEL 8.9 MG/DL (8.8-10.2); CREATININE FOR GFR 8.21 MG/DL (0.70-1.30); GLOMERULAR FILTRATION RATE 6.9 (>42); MAGNESIUM LEVEL 2.2 MG/DL (1.8-2.4); POTASSIUM SERUM 5.5 MEQ/L (3.5-5.1)
[2022-02-11] MEDS: IPRATROPIUM 0.5MG/ALBUTEROL 2.5MG INH SOL UD 3ML (DUONEB) INH SCH ×4 (07:35→20:00)
[2022-02-11] MEDS: ADVAIR HFA 230/21MCG INHALER INH SCH ×2 (07:36→20:11)
[2022-02-11] MEDS: SUCROFERRIC OXYHYDROXIDE 500MG CHEW TAB (VELPHORO) PO SCH ×3 (07:50→17:10)
[2022-02-11] MEDS: LEVEMIR (INSULIN DETEMIR) 1 UNITS/0.01ML SC SCH (07:51)
[2022-02-11] MEDS: INSULIN LISPRO (NovoLOG) PER UNIT SC SCH ×4 (07:55→20:55)
[2022-02-11] MEDS: DARBEPOETIN 100 MCG/0.5 ML *DIALYSIS* SYRINGE (J0882) IV SCH (09:32)
[2022-02-11] MEDS: ACETAMINOPHEN TAB 650MG DOSE (2X325MG) PO PRN (13:51)
[2022-02-11 14:00] VITALS: BP 112/71
[2022-02-11] MEDS: MEROPENEM INJ 1 GM in IV 1 EA IV SCH (16:23)
[2022-02-11] MEDS: BUPRENORPHINE 20 MCG/HR TOP SCH (17:13)
[2022-02-11] MEDS: GABAPENTIN 100 MG CAP PO SCH (20:55)
[2022-02-11] MEDS: TAMSULOSIN 0.4 MG CAP PO SCH (20:56)
[2022-02-11] MEDS: ATORVASTATIN 20 MG TAB PO SCH (20:56)
[2022-02-11] MEDS: traZODone 100 MG TAB PO SCH (20:56)
[2022-02-11] MEDS: NORCO, ANEXSIA 5/325MG TABLET (HYDROcodone/ACETAMINOPHEN) PO PRN (20:57)
[2022-02-11 22:00] VITALS: BP 121/69
[2022-02-12] MEDS: IPRATROPIUM 0.5MG/ALBUTEROL 2.5MG INH SOL UD 3ML (DUONEB) INH SCH ×6 (04:00→19:40)
[2022-02-12 06:03] LABS: INR 1.92; PROTHROMBIN TIME 22.4 SECONDS (12.7-14.5)
[2022-02-12 06:24] VITALS: BP 132/60
[2022-02-12] MEDS: ADVAIR HFA 230/21MCG INHALER INH SCH ×2 (07:16→19:40)
[2022-02-12] MEDS: SUCROFERRIC OXYHYDROXIDE 500MG CHEW TAB (VELPHORO) PO SCH ×3 (08:14→17:39)
[2022-02-12] MEDS: MIRALAX *UNIT DOSE* 17GM PACKET PO SCH (08:14)
[2022-02-12] MEDS: PRAMIPEXOLE 0.25 MG TAB PO SCH ×3 (08:14→21:41)
[2022-02-12] MEDS: ASPIRIN 81MG ENTERIC TABLET PO SCH (08:14)
[2022-02-12] MEDS: DOCUSATE SODIUM 100MG CAPSULE PO SCH ×2 (08:14→21:37)
[2022-02-12] MEDS: MAGNESIUM OXIDE 400MG TAB (MAG-OX) PO SCH ×2 (08:14→21:42)
[2022-02-12] MEDS: ENTRESTO 24-26MG TABLET (SACUBITRIL/VALSARTAN) PO SCH (08:15)
[2022-02-12] MEDS: PANTOPRAZOLE 40MG TAB (PROTONIX) PO SCH (08:15)
[2022-02-12] MEDS: MIDODRINE 5 MG TAB PO SCH ×3 (08:15→16:40)
[2022-02-12] MEDS: OMEGA-3 1000MG CAPSULE PO SCH (08:15)
[2022-02-12] MEDS: buPROPion **XL** TABLET 150MG (WELLBUTRIN XL) PO SCH (08:15)
[2022-02-12] MEDS: clonazePAM 0.5 MG TAB PO SCH ×2 (08:15→21:37)
[2022-02-12] MEDS: APIXABAN 5 MG TAB (ELIQUIS) PO SCH ×2 (08:15→21:38)
[2022-02-12] MEDS: OCUVITE 1 TAB PO SCH ×2 (08:16→21:41)
[2022-02-12] MEDS: LEVEMIR (INSULIN DETEMIR) 1 UNITS/0.01ML SC SCH (08:17)
[2022-02-12] MEDS: INSULIN LISPRO (NovoLOG) PER UNIT SC SCH ×4 (08:17→20:44)
[2022-02-12] MEDS: bisoproloL fumarate 5 MG TAB PO SCH (08:19)
[2022-02-12] MEDS: AZELASTINE 137MCG NASAL SPY 30 ML (ASTELIN) SCH (08:29)
[2022-02-12 15:00] VITALS: BP 121/61
[2022-02-12] MEDS: MEROPENEM INJ 1 GM in IV 1 EA IV SCH (16:40)
[2022-02-12 19:52] VITALS: BP_SYST 127; BP_SYST 128; BP_DIAS 62; BP_DIAS 65
[2022-02-12] MEDS: TAMSULOSIN 0.4 MG CAP PO SCH (21:37)
[2022-02-12] MEDS: ATORVASTATIN 20 MG TAB PO SCH (21:37)
[2022-02-12] MEDS: GABAPENTIN 100 MG CAP PO SCH (21:37)
[2022-02-12] MEDS: NORCO, ANEXSIA 5/325MG TABLET (HYDROcodone/ACETAMINOPHEN) PO PRN (21:38)
[2022-02-12] MEDS: traZODone 100 MG TAB PO SCH (21:38)
[2022-02-13] MEDS: IPRATROPIUM 0.5MG/ALBUTEROL 2.5MG INH SOL UD 3ML (DUONEB) INH SCH ×6 (03:43→20:00)
[2022-02-13 06:00] VITALS: BP 126/65
[2022-02-13] MEDS ORDERED: SODIUM CHLORIDE 0.9% 1000ML IV PRN (06:00)
[2022-02-13] MEDS: buPROPion **XL** TABLET 150MG (WELLBUTRIN XL) PO SCH (06:59)
[2022-02-13] MEDS: ENTRESTO 24-26MG TABLET (SACUBITRIL/VALSARTAN) PO SCH (06:59)
[2022-02-13] MEDS: SUCROFERRIC OXYHYDROXIDE 500MG CHEW TAB (VELPHORO) PO SCH ×3 (06:59→18:46)
[2022-02-13] MEDS: MIRALAX *UNIT DOSE* 17GM PACKET PO SCH (06:59)
[2022-02-13] MEDS: MIDODRINE 5 MG TAB PO SCH ×3 (06:59→16:00)
[2022-02-13] MEDS: PANTOPRAZOLE 40MG TAB (PROTONIX) PO SCH (07:01)
[2022-02-13] MEDS: ASPIRIN 81MG ENTERIC TABLET PO SCH (07:01)
[2022-02-13] MEDS: clonazePAM 0.5 MG TAB PO SCH ×2 (07:01→20:18)
[2022-02-13] MEDS: OCUVITE 1 TAB PO SCH ×2 (07:01→20:19)
[2022-02-13] MEDS: DOCUSATE SODIUM 100MG CAPSULE PO SCH ×2 (07:02→20:18)
[2022-02-13] MEDS: APIXABAN 5 MG TAB (ELIQUIS) PO SCH ×2 (07:03→20:19)
[2022-02-13] MEDS: MAGNESIUM OXIDE 400MG TAB (MAG-OX) PO SCH ×2 (07:03→20:17)
[2022-02-13] MEDS: OMEGA-3 1000MG CAPSULE PO SCH (07:03)
[2022-02-13] MEDS: PRAMIPEXOLE 0.25 MG TAB PO SCH ×3 (07:09→20:54)
[2022-02-13] MEDS: ADVAIR HFA 230/21MCG INHALER INH SCH ×2 (07:27→20:03)
[2022-02-13] MEDS: ONDANSETRON 4MG ORAL DISINTEGRATING TAB PO PRN (08:01)
[2022-02-13] MEDS: NORCO, ANEXSIA 5/325MG TABLET (HYDROcodone/ACETAMINOPHEN) PO PRN ×2 (08:01→18:46)
[2022-02-13] MEDS: INSULIN LISPRO (NovoLOG) PER UNIT SC SCH ×4 (08:07→20:31)
[2022-02-13] MEDS: AZELASTINE 137MCG NASAL SPY 30 ML (ASTELIN) SCH (08:07)
[2022-02-13] MEDS: bisoproloL fumarate 5 MG TAB PO SCH (08:07)
[2022-02-13] MEDS: LEVEMIR (INSULIN DETEMIR) 1 UNITS/0.01ML SC SCH (08:08)
[2022-02-13 19:48] VITALS: BP 129/70
[2022-02-13] MEDS: ATORVASTATIN 20 MG TAB PO SCH (20:17)
[2022-02-13] MEDS: traZODone 100 MG TAB PO SCH (20:18)
[2022-02-13] MEDS: TAMSULOSIN 0.4 MG CAP PO SCH (20:18)
[2022-02-13] MEDS: GABAPENTIN 100 MG CAP PO SCH (20:19)
[2022-02-14] MEDS: IPRATROPIUM 0.5MG/ALBUTEROL 2.5MG INH SOL UD 3ML (DUONEB) INH SCH ×6 (03:56→19:35)
[2022-02-14 06:37] VITALS: BP 129/66
[2022-02-14] MEDS: ADVAIR HFA 230/21MCG INHALER INH SCH ×2 (07:19→19:35)
[2022-02-14 08:00] VITALS: BP 132/60
[2022-02-14] MEDS: ENTRESTO 24-26MG TABLET (SACUBITRIL/VALSARTAN) PO SCH (08:49)
[2022-02-14] MEDS: OMEGA-3 1000MG CAPSULE PO SCH (08:49)
[2022-02-14] MEDS: MAGNESIUM OXIDE 400MG TAB (MAG-OX) PO SCH ×2 (08:49→20:11)
[2022-02-14] MEDS: ASPIRIN 81MG ENTERIC TABLET PO SCH (08:50)
[2022-02-14] MEDS: buPROPion **XL** TABLET 150MG (WELLBUTRIN XL) PO SCH (08:50)
[2022-02-14] MEDS: APIXABAN 5 MG TAB (ELIQUIS) PO SCH (08:50)
[2022-02-14] MEDS: clonazePAM 0.5 MG TAB PO SCH ×2 (08:50→20:11)
[2022-02-14] MEDS: PANTOPRAZOLE 40MG TAB (PROTONIX) PO SCH (08:50)
[2022-02-14] MEDS: OCUVITE 1 TAB PO SCH ×2 (08:50→20:11)
[2022-02-14] MEDS: SUCROFERRIC OXYHYDROXIDE 500MG CHEW TAB (VELPHORO) PO SCH ×3 (08:50→17:13)
[2022-02-14] MEDS: INSULIN LISPRO (NovoLOG) PER UNIT SC SCH ×4 (08:51→20:12)
[2022-02-14] MEDS: LEVEMIR (INSULIN DETEMIR) 1 UNITS/0.01ML SC SCH (08:51)
[2022-02-14] MEDS: DOCUSATE SODIUM 100MG CAPSULE PO SCH ×2 (08:52→20:10)
[2022-02-14] MEDS: MIRALAX *UNIT DOSE* 17GM PACKET PO SCH (08:52)
[2022-02-14] MEDS: AZELASTINE 137MCG NASAL SPY 30 ML (ASTELIN) SCH (08:57)
[2022-02-14 09:17] LABS: HEMATOCRIT 28.1 % (42.0-52.0); HEMOGLOBIN 8.7 g/dl (13.5-17.5); MEAN CORPUSCULAR HEMOGLOBIN 30.6 pg (27.0-33.0); MEAN CORPUSCULAR VOLUME 98.9 fl (80.0-96.0); RED BLOOD COUNT 2.84 10^6/uL (4.30-6.10); WHITE BLOOD COUNT 2.9 10^3/uL (4.0-10.0)
[2022-02-14 09:19] LABS: PLATELET COUNT, AUTOMATED 68 10^3/uL (150-450)
[2022-02-14 09:42] LABS: CALCIUM LEVEL 8.6 MG/DL (8.8-10.2); CREATININE FOR GFR 5.92 MG/DL (0.70-1.30); GLOMERULAR FILTRATION RATE 10.1 (>42); POTASSIUM SERUM 4.9 MEQ/L (3.5-5.1)
[2022-02-14 10:10] VITALS: BP 108/58
[2022-02-14 10:13] LABS: ATYPICAL LYMPH 7 % (0-5); BASOPHILS 1 % (0-1); LYMPHOCYTES 43 % (16-44); METAMYELOCYTES 1 % (0-0); MONOCYTES 4 % (0-5); NEUTROPHILS 37 % (28-66)
[2022-02-14 10:14] LABS: ANISOCYTOSIS 1+; PLATELET ESTIMATE DECREASED (NORMAL)
[2022-02-14 10:15] LABS: SCHISTOCYTES 1+
[2022-02-14 10:16] LABS: POIKILOCYTOSIS 1+
[2022-02-14] MEDS: MIDODRINE 5 MG TAB PO SCH ×3 (10:46→16:00)
[2022-02-14] MEDS: bisoproloL fumarate 5 MG TAB PO SCH (10:46)
[2022-02-14] MEDS: PRAMIPEXOLE 0.25 MG TAB PO SCH ×3 (10:46→20:12)
[2022-02-14 14:00] VITALS: BP 82/48
[2022-02-14 14:21] LABS: HEMATOCRIT 25.2 % (42.0-52.0)
[2022-02-14 15:30] VITALS: BP 120/50
[2022-02-14] MEDS: TAMSULOSIN 0.4 MG CAP PO SCH (20:11)
[2022-02-14] MEDS: traZODone 100 MG TAB PO SCH (20:11)
[2022-02-14] MEDS: ATORVASTATIN 20 MG TAB PO SCH (20:11)
[2022-02-14] MEDS: GABAPENTIN 100 MG CAP PO SCH (20:12)
[2022-02-14 21:00] LABS: HEMATOCRIT 26.7 % (42.0-52.0); HEMOGLOBIN 8.4 g/dl (13.5-17.5)
[2022-02-14 22:00] VITALS: BP 124/67
[2022-02-15 02:05] LABS: HEMATOCRIT 25.7 % (42.0-52.0); HEMOGLOBIN 8.3 g/dl (13.5-17.5)
[2022-02-15] MEDS: IPRATROPIUM 0.5MG/ALBUTEROL 2.5MG INH SOL UD 3ML (DUONEB) INH SCH ×6 (04:00→20:14)
[2022-02-15 06:00] VITALS: BP 127/63
[2022-02-15] MEDS: ADVAIR HFA 230/21MCG INHALER INH SCH ×2 (07:15→20:14)
[2022-02-15 09:00] VITALS: BP 128/62
[2022-02-15] MEDS: LEVEMIR (INSULIN DETEMIR) 1 UNITS/0.01ML SC SCH (09:05)
[2022-02-15] MEDS: MIDODRINE 5 MG TAB PO SCH ×3 (09:06→16:16)
[2022-02-15] MEDS: MIRALAX *UNIT DOSE* 17GM PACKET PO SCH (09:06)
[2022-02-15] MEDS: bisoproloL fumarate 5 MG TAB PO SCH (09:06)
[2022-02-15] MEDS: INSULIN LISPRO (NovoLOG) PER UNIT SC SCH ×4 (09:06→19:55)
[2022-02-15] MEDS: ENTRESTO 24-26MG TABLET (SACUBITRIL/VALSARTAN) PO SCH (09:07)
[2022-02-15] MEDS: OCUVITE 1 TAB PO SCH ×2 (09:07→20:02)
[2022-02-15] MEDS: SUCROFERRIC OXYHYDROXIDE 500MG CHEW TAB (VELPHORO) PO SCH ×3 (09:07→17:30)
[2022-02-15] MEDS: ASPIRIN 81MG ENTERIC TABLET PO SCH (09:08)
[2022-02-15] MEDS: PRAMIPEXOLE 0.25 MG TAB PO SCH ×3 (09:08→20:02)
[2022-02-15] MEDS: buPROPion **XL** TABLET 150MG (WELLBUTRIN XL) PO SCH (09:08)
[2022-02-15] MEDS: clonazePAM 0.5 MG TAB PO SCH ×2 (09:08→20:02)
[2022-02-15] MEDS: DOCUSATE SODIUM 100MG CAPSULE PO SCH ×2 (09:08→20:03)
[2022-02-15] MEDS: PANTOPRAZOLE 40MG TAB (PROTONIX) PO SCH (09:08)
[2022-02-15] MEDS: MAGNESIUM OXIDE 400MG TAB (MAG-OX) PO SCH ×2 (09:08→20:02)
[2022-02-15] MEDS: OMEGA-3 1000MG CAPSULE PO SCH (09:08)
[2022-02-15 09:19] LABS: HEMATOCRIT 26.3 % (42.0-52.0); HEMOGLOBIN 8.3 g/dl (13.5-17.5)
[2022-02-15] MEDS: AZELASTINE 137MCG NASAL SPY 30 ML (ASTELIN) SCH (12:49)
[2022-02-15 13:00] VITALS: BP 91/58
[2022-02-15 14:00] VITALS: BP 94/56
[2022-02-15 14:08] LABS: HEMATOCRIT 25.3 % (42.0-52.0)
[2022-02-15 15:00] VITALS: BP 121/79
[2022-02-15 18:21] LABS: HEMATOCRIT 25.6 % (42.0-52.0); HEMOGLOBIN 8.1 g/dl (13.5-17.5)
[2022-02-15] MEDS: traZODone 100 MG TAB PO SCH (20:02)
[2022-02-15] MEDS: GABAPENTIN 100 MG CAP PO SCH (20:02)
[2022-02-15] MEDS: TAMSULOSIN 0.4 MG CAP PO SCH (20:03)
[2022-02-15] MEDS: ATORVASTATIN 20 MG TAB PO SCH (20:03)
[2022-02-15 21:49] VITALS: BP 126/72
[2022-02-16] MEDS ORDERED: LIDOCAINE 1% SDV 5ML VIAL SC PRN (00:35)
[2022-02-16] MEDS ORDERED: SODIUM CHLORIDE 0.9% 1000ML IV PRN (00:35)
[2022-02-16 06:00] VITALS: BP 120/67
[2022-02-16] MEDS: clonazePAM 0.5 MG TAB PO SCH ×2 (06:06→20:34)
[2022-02-16] MEDS: DOCUSATE SODIUM 100MG CAPSULE PO SCH ×2 (06:06→20:33)
[2022-02-16] MEDS: SUCROFERRIC OXYHYDROXIDE 500MG CHEW TAB (VELPHORO) PO SCH ×3 (06:06→18:07)
[2022-02-16] MEDS: ASPIRIN 81MG ENTERIC TABLET PO SCH (06:06)
[2022-02-16] MEDS: PANTOPRAZOLE 40MG TAB (PROTONIX) PO SCH (06:06)
[2022-02-16] MEDS: OMEGA-3 1000MG CAPSULE PO SCH (06:07)
[2022-02-16] MEDS: OCUVITE 1 TAB PO SCH ×2 (06:07→20:35)
[2022-02-16] MEDS: PRAMIPEXOLE 0.25 MG TAB PO SCH ×3 (06:07→20:39)
[2022-02-16] MEDS: buPROPion **XL** TABLET 150MG (WELLBUTRIN XL) PO SCH (06:08)
[2022-02-16] MEDS: bisoproloL fumarate 5 MG TAB PO SCH (06:08)
[2022-02-16] MEDS: MIDODRINE 5 MG TAB PO SCH ×3 (06:08→18:07)
[2022-02-16] MEDS: ENTRESTO 24-26MG TABLET (SACUBITRIL/VALSARTAN) PO SCH (06:08)
[2022-02-16] MEDS: MAGNESIUM OXIDE 400MG TAB (MAG-OX) PO SCH ×2 (06:09→20:34)
[2022-02-16] MEDS: MIRALAX *UNIT DOSE* 17GM PACKET PO SCH (06:27)
[2022-02-16] MEDS: ADVAIR HFA 230/21MCG INHALER INH SCH ×2 (07:27→19:59)
[2022-02-16] MEDS: IPRATROPIUM 0.5MG/ALBUTEROL 2.5MG INH SOL UD 3ML (DUONEB) INH SCH ×5 (07:27→19:59)
[2022-02-16] MEDS: INSULIN LISPRO (NovoLOG) PER UNIT SC SCH ×3 (08:53→18:22)
[2022-02-16] MEDS: AZELASTINE 137MCG NASAL SPY 30 ML (ASTELIN) SCH (08:53)
[2022-02-16] MEDS: LEVEMIR (INSULIN DETEMIR) 1 UNITS/0.01ML SC SCH (08:53)
[2022-02-16 10:02] LABS: HEMATOCRIT 26.6 % (42.0-52.0); HEMOGLOBIN 8.5 g/dl (13.5-17.5); MEAN CORPUSCULAR HEMOGLOBIN 31.4 pg (27.0-33.0); MEAN CORPUSCULAR VOLUME 98.2 fl (80.0-96.0); RED BLOOD COUNT 2.71 10^6/uL (4.30-6.10); WHITE BLOOD COUNT 3.2 10^3/uL (4.0-10.0)
[2022-02-16 10:04] LABS: PLATELET COUNT, AUTOMATED 59 10^3/uL (150-450)
[2022-02-16 10:41] LABS: BASOPHILS 3 % (0-1); LYMPHOCYTES 44 % (16-44); METAMYELOCYTES 1 % (0-0); MONOCYTES 2 % (0-5); MYELOCYTES 1 % (0-0); NEUTROPHILS 48 % (28-66)
[2022-02-16 10:42] LABS: PLATELET ESTIMATE DECREASED (NORMAL)
[2022-02-16 10:44] LABS: CALCIUM LEVEL 8.3 MG/DL (8.8-10.2); CREATININE FOR GFR 9.4 MG/DL (0.70-1.30); GLOMERULAR FILTRATION RATE 5.9 (>42); POTASSIUM SERUM 5.9 MEQ/L (3.5-5.1)
[2022-02-16] MEDS: DARBEPOETIN 200MCG/0.4ML *DIALYSIS* SYRINGE (J0882 PER 1MCG) IV SCH (12:49)
[2022-02-16 13:00] VITALS: BP 96/66
[2022-02-16 13:15] VITALS: BP 91/51
[2022-02-16 13:30] VITALS: BP 104/57
[2022-02-16 14:00] VITALS: BP 123/79
[2022-02-16] MEDS: TAMSULOSIN 0.4 MG CAP PO SCH (20:33)
[2022-02-16] MEDS: traZODone 50 MG TAB PO SCH (20:33)
[2022-02-16] MEDS: ATORVASTATIN 20 MG TAB PO SCH (20:34)
[2022-02-16] MEDS: GABAPENTIN 100 MG CAP PO SCH (20:34)
[2022-02-16 22:00] VITALS: BP 124/65
[2022-02-16] MEDS ORDERED: ACETAMINOPHEN *IV* 650 MG in IV 1 EA IV ONE (23:30)
[2022-02-17] MEDS ORDERED: IPRATROPIUM 0.5MG/ALBUTEROL 2.5MG INH SOL UD 3ML (DUONEB) NEB ONE (00:20)
[2022-02-17 00:22] LABS: HEMATOCRIT 29.6 % (42.0-52.0); HEMOGLOBIN 9.6 g/dl (13.5-17.5)
[2022-02-17 00:33] LABS: VENOUS HCO3 27.8 MEQ/L (23.0-27.0); VENOUS O2 SATURATION 52.2 % (60.0-80.0); VENOUS PARTIAL PRESSURE CO2 43.9 mmHg (38.0-50.0); VENOUS PARTIAL PRESSURE O2 27.2 mmHg (30.0-50.0); VENOUS STANDARD HCO3 26.2 MEQ/L; VENOUS TOTAL CO2 29.2 MEQ/L (24.0-28.0)
[2022-02-17] MEDS: IPRATROPIUM 0.5MG/ALBUTEROL 2.5MG INH SOL UD 3ML (DUONEB) INH SCH ×4 (00:42→19:58)
[2022-02-17 00:46] LABS: ABG BASE EXCESS 1.9 (-2.0-2.0); ABG HCO3 24.9 MEQ/L (22.0-26.0); ABG O2 SATURATION 96.9 % (95.0-99.0); ABG PARTIAL PRESSURE CO2 32.8 mmHg (35.0-45.0); ABG PARTIAL PRESSURE O2 87.6 mmHg (75.0-100.0); ABG STANDARD HCO3 26.2 MEQ/L (22.0-26.0); ABG TOTAL CO2 25.9 MEQ/L (23.0-31.0); ABG pH (ARTERIAL) 7.498 UNITS (7.350-7.450)
[2022-02-17 01:24] LABS: ALBUMIN 2.7 GM/DL (3.2-5.2); BILIRUBIN,TOTAL 0.7 MG/DL (0.2-1.0); CALCIUM LEVEL 8.4 MG/DL (8.8-10.2); CREATININE FOR GFR 5.72 MG/DL (0.70-1.30); GLOMERULAR FILTRATION RATE 10.5 (>42); MAGNESIUM LEVEL 2.6 MG/DL (1.8-2.4); POTASSIUM SERUM 5.1 MEQ/L (3.5-5.1); TOTAL PROTEIN 5.8 GM/DL (6.4-8.2)
[2022-02-17 02:24] LABS: RSV AMPLIFICATION NEGATIVE (NEGATIVE)
[2022-02-17] MEDS: PIPERACILLIN/TAZOBACTAM SOD 2.25 GM in D5W MINI-BAG PLUS 50 ML IV SCH ×2 (03:29→08:24)
[2022-02-17] MEDS ORDERED: DOXYCYCLINE HYCLATE 100 MG in D5W MINI-BAG PLUS 100 ML IV SCH (04:00)
[2022-02-17 06:00] VITALS: BP 103/62
[2022-02-17] MEDS: NYSTATIN 500,000 U/5 ML SUSP UDC SS SCH ×3 (06:12→17:30)
[2022-02-17 06:40] LABS: HEMATOCRIT 29.4 % (42.0-52.0); HEMOGLOBIN 9.2 g/dl (13.5-17.5); MEAN CORPUSCULAR HEMOGLOBIN 30.5 pg (27.0-33.0); MEAN CORPUSCULAR HGB CONC 31.3 g/dl (32.0-36.5); MEAN CORPUSCULAR VOLUME 97.4 fl (80.0-96.0); RED BLOOD COUNT 3.02 10^6/uL (4.30-6.10); WHITE BLOOD COUNT 3.5 10^3/uL (4.0-10.0)
[2022-02-17 06:41] LABS: PLATELET COUNT, AUTOMATED 55 10^3/uL (150-450)
[2022-02-17] MEDS: ADVAIR HFA 230/21MCG INHALER INH SCH ×2 (07:34→19:58)
[2022-02-17 07:41] LABS: ATYPICAL LYMPH 4 % (0-5); BASOPHILS 1 % (0-1); EOSINOPHILS 2 % (0-3); LYMPHOCYTES 44 % (16-44); MONOCYTES 2 % (0-5); NEUTROPHILS 39 % (28-66)
[2022-02-17 07:42] LABS: PLATELET ESTIMATE DECREASED (NORMAL)
[2022-02-17 07:44] LABS: MICROCYTOSIS 1+
[2022-02-17] MEDS: LEVEMIR (INSULIN DETEMIR) 1 UNITS/0.01ML SC SCH (08:24)
[2022-02-17] MEDS: INSULIN LISPRO (NovoLOG) PER UNIT SC SCH ×3 (08:25→17:30)
[2022-02-17] MEDS: MIRALAX *UNIT DOSE* 17GM PACKET PO SCH (08:27)
[2022-02-17] MEDS: ASPIRIN 81MG ENTERIC TABLET PO SCH (08:28)
[2022-02-17] MEDS: SUCROFERRIC OXYHYDROXIDE 500MG CHEW TAB (VELPHORO) PO SCH ×3 (08:28→17:28)
[2022-02-17] MEDS: OCUVITE 1 TAB PO SCH ×2 (08:28→21:19)
[2022-02-17] MEDS: clonazePAM 0.5 MG TAB PO SCH ×2 (08:28→21:20)
[2022-02-17] MEDS: buPROPion **XL** TABLET 150MG (WELLBUTRIN XL) PO SCH (08:29)
[2022-02-17] MEDS: PANTOPRAZOLE 40MG TAB (PROTONIX) PO SCH (08:29)
[2022-02-17] MEDS: LACTOBACILLUS ACIDOPHILUS CAP (BACID) PO SCH (08:29)
[2022-02-17] MEDS: MIDODRINE 5 MG TAB PO SCH ×3 (08:29→17:29)
[2022-02-17] MEDS: DOCUSATE SODIUM 100MG CAPSULE PO SCH ×2 (08:29→21:19)
[2022-02-17] MEDS: OMEGA-3 1000MG CAPSULE PO SCH (08:29)
[2022-02-17] MEDS: PRAMIPEXOLE 0.25 MG TAB PO SCH ×3 (08:29→21:21)
[2022-02-17] MEDS: AZELASTINE 137MCG NASAL SPY 30 ML (ASTELIN) SCH (08:30)
[2022-02-17] MEDS: guaiFENesin ER 600 MG TAB PO SCH ×2 (08:30→21:21)
[2022-02-17] MEDS: ENTRESTO 24-26MG TABLET (SACUBITRIL/VALSARTAN) PO SCH (08:57)
[2022-02-17] MEDS: bisoproloL fumarate 5 MG TAB PO SCH (08:57)
[2022-02-17] MEDS: MAGNESIUM OXIDE 400MG TAB (MAG-OX) PO SCH ×2 (09:00→21:21)
[2022-02-17] MEDS: BUDESONIDE 0.5 MG/2 ML INHALATION SUSPENSION INH SCH ×2 (12:22→19:59)
[2022-02-17 12:35] VITALS: BP 116/64
[2022-02-17] MEDS: ACETAMINOPHEN TAB 650MG DOSE (2X325MG) PO PRN (13:58)
[2022-02-17 14:00] VITALS: BP 119/64
[2022-02-17] MEDS ORDERED: PIPERACILLIN/TAZOBACTAM SOD 4.5 GM in D5W MINI-BAG PLUS 50 ML IV SCH (14:00)
[2022-02-17 15:06] LABS: CREATININE FOR GFR 6.07 MG/DL (0.70-1.30); GLOMERULAR FILTRATION RATE 9.8 (>42)
[2022-02-17 15:07] LABS: ALBUMIN 2.6 GM/DL (3.2-5.2); BILIRUBIN,TOTAL 0.6 MG/DL (0.2-1.0); C REACTIVE PROTEIN QUANTITATIV 2.3 MG/DL (0.00-0.30); CALCIUM LEVEL 8.6 MG/DL (8.8-10.2); MAGNESIUM LEVEL 2.7 MG/DL (1.8-2.4); TOTAL PROTEIN 5.4 GM/DL (6.4-8.2)
[2022-02-17] MEDS: GABAPENTIN 100 MG CAP PO SCH (21:19)
[2022-02-17] MEDS: TAMSULOSIN 0.4 MG CAP PO SCH (21:19)
[2022-02-17] MEDS: traZODone 50 MG TAB PO SCH (21:19)
[2022-02-17] MEDS: ATORVASTATIN 20 MG TAB PO SCH (21:20)
[2022-02-17] MEDS: DOXYCYCLINE HYCLATE 100MG TABLET PO SCH (21:21)
[2022-02-17 22:00] VITALS: BP 116/64
[2022-02-18] MEDS: NYSTATIN 500,000 U/5 ML SUSP UDC SS SCH ×4 (00:39→19:18)
[2022-02-18] MEDS: IPRATROPIUM 0.5MG/ALBUTEROL 2.5MG INH SOL UD 3ML (DUONEB) INH SCH ×4 (00:49→20:09)
[2022-02-18] MEDS ORDERED: SODIUM CHLORIDE 0.9% 1000ML IV PRN (01:25)
[2022-02-18] MEDS ORDERED: LIDOCAINE 1% SDV 5ML VIAL SC PRN (01:25)
[2022-02-18] MEDS: ACETAMINOPHEN TAB 650MG DOSE (2X325MG) PO PRN (01:25)
[2022-02-18 02:32] LABS: HEMATOCRIT 28.6 % (42.0-52.0); HEMOGLOBIN 9.2 g/dl (13.5-17.5); MEAN CORPUSCULAR HEMOGLOBIN 31.1 pg (27.0-33.0); MEAN CORPUSCULAR HGB CONC 32.2 g/dl (32.0-36.5); MEAN CORPUSCULAR VOLUME 96.6 fl (80.0-96.0); RED BLOOD COUNT 2.96 10^6/uL (4.30-6.10); WHITE BLOOD COUNT 3.3 10^3/uL (4.0-10.0)
[2022-02-18 02:40] LABS: PLATELET COUNT, AUTOMATED 51 10^3/uL (150-450)
[2022-02-18 03:00] LABS: ALBUMIN 2.6 GM/DL (3.2-5.2); BILIRUBIN,TOTAL 0.9 MG/DL (0.2-1.0); CALCIUM LEVEL 8.2 MG/DL (8.8-10.2); CREATININE FOR GFR 7.74 MG/DL (0.70-1.30); GLOMERULAR FILTRATION RATE 7.4 (>42); POTASSIUM SERUM 5.5 MEQ/L (3.5-5.1); TOTAL PROTEIN 5.7 GM/DL (6.4-8.2)
[2022-02-18 05:58] LABS: VENOUS O2 SATURATION 98.6 % (60.0-80.0); VENOUS PARTIAL PRESSURE O2 117.1 mmHg (30.0-50.0); VENOUS PH 7.428 UNITS (7.330-7.430); VENOUS STANDARD HCO3 22.8 MEQ/L
[2022-02-18 06:00] VITALS: BP 107/55
[2022-02-18 06:04] LABS: ANISOCYTOSIS 2+; ATYPICAL LYMPH 3 % (0-5); LYMPHOCYTES 19 % (16-44); MONOCYTES 8 % (0-5); NEUTROPHILS 70 % (28-66); POLYCHROMASIA 1+
[2022-02-18 06:05] LABS: PLATELET ESTIMATE DECREASED (NORMAL)
[2022-02-18] MEDS: ENTRESTO 24-26MG TABLET (SACUBITRIL/VALSARTAN) PO SCH (06:53)
[2022-02-18] MEDS: bisoproloL fumarate 5 MG TAB PO SCH (06:54)
[2022-02-18] MEDS: LACTOBACILLUS ACIDOPHILUS CAP (BACID) PO SCH (07:05)
[2022-02-18] MEDS: MIDODRINE 5 MG TAB PO SCH ×4 (07:05→17:15)
[2022-02-18] MEDS: SUCROFERRIC OXYHYDROXIDE 500MG CHEW TAB (VELPHORO) PO SCH ×3 (07:05→19:18)
[2022-02-18] MEDS: PRAMIPEXOLE 0.25 MG TAB PO SCH ×3 (07:06→20:21)
[2022-02-18] MEDS: OCUVITE 1 TAB PO SCH ×2 (07:06→20:22)
[2022-02-18] MEDS: clonazePAM 0.5 MG TAB PO SCH ×2 (07:06→20:21)
[2022-02-18] MEDS: DOCUSATE SODIUM 100MG CAPSULE PO SCH ×2 (07:06→20:22)
[2022-02-18] MEDS: OMEGA-3 1000MG CAPSULE PO SCH (07:06)
[2022-02-18] MEDS: ASPIRIN 81MG ENTERIC TABLET PO SCH (07:06)
[2022-02-18] MEDS: guaiFENesin ER 600 MG TAB PO SCH ×2 (07:06→20:21)
[2022-02-18] MEDS: buPROPion **XL** TABLET 150MG (WELLBUTRIN XL) PO SCH (07:07)
[2022-02-18] MEDS: PANTOPRAZOLE 40MG TAB (PROTONIX) PO SCH (07:07)
[2022-02-18] MEDS: AZELASTINE 137MCG NASAL SPY 30 ML (ASTELIN) SCH (07:07)
[2022-02-18] MEDS: DOXYCYCLINE HYCLATE 100MG TABLET PO SCH (07:07)
[2022-02-18] MEDS: BUDESONIDE 0.5 MG/2 ML INHALATION SUSPENSION INH SCH ×2 (08:00→20:09)
[2022-02-18] MEDS ORDERED: PATIROMER SORBITEX CALCIUM 8.4 GM POWDER PACKET (VELTASSA) PO ONE (09:00)
[2022-02-18] MEDS: MIRALAX *UNIT DOSE* 17GM PACKET PO SCH (09:00)
[2022-02-18] MEDS: LEVEMIR (INSULIN DETEMIR) 1 UNITS/0.01ML SC SCH (09:40)
[2022-02-18] MEDS: INSULIN LISPRO (NovoLOG) PER UNIT SC SCH ×3 (09:40→17:02)
[2022-02-18 11:10] VITALS: BP 123/63
[2022-02-18] MEDS: ADVAIR HFA 230/21MCG INHALER INH SCH ×2 (11:29→20:09)
[2022-02-18 11:33] VITALS: O2SAT 98
[2022-02-18 16:58] VITALS: BP 126/63
[2022-02-18] MEDS: MOXIFLOXACIN 400 MG TAB PO SCH (17:15)
[2022-02-18 19:59] VITALS: BP 138/63
[2022-02-18] MEDS: traZODone 50 MG TAB PO SCH (20:21)
[2022-02-18] MEDS: TAMSULOSIN 0.4 MG CAP PO SCH (20:21)
[2022-02-18] MEDS: ATORVASTATIN 20 MG TAB PO SCH (20:22)
[2022-02-18] MEDS: GABAPENTIN 100 MG CAP PO SCH (20:22)
[2022-02-19] MEDS ORDERED: SODIUM CHLORIDE 0.9% 1000ML IV PRN (00:35)
[2022-02-19] MEDS ORDERED: LIDOCAINE 1% SDV 5ML VIAL SC PRN (00:35)
[2022-02-19] MEDS: IPRATROPIUM 0.5MG/ALBUTEROL 2.5MG INH SOL UD 3ML (DUONEB) INH SCH ×4 (02:00→19:52)
[2022-02-19 05:34] VITALS: BP 137/64
[2022-02-19] MEDS: NYSTATIN 500,000 U/5 ML SUSP UDC SS SCH ×4 (05:39→18:08)
[2022-02-19] MEDS: MOXIFLOXACIN 400 MG TAB PO SCH (05:41)
[2022-02-19] MEDS: ADVAIR HFA 230/21MCG INHALER INH SCH ×2 (07:31→19:53)
[2022-02-19] MEDS: BUDESONIDE 0.5 MG/2 ML INHALATION SUSPENSION INH SCH ×2 (07:31→19:54)
[2022-02-19] MEDS: INSULIN LISPRO (NovoLOG) PER UNIT SC SCH ×3 (08:00→17:30)
[2022-02-19] MEDS: SUCROFERRIC OXYHYDROXIDE 500MG CHEW TAB (VELPHORO) PO SCH ×3 (08:00→18:03)
[2022-02-19] MEDS: LEVEMIR (INSULIN DETEMIR) 1 UNITS/0.01ML SC SCH (08:01)
[2022-02-19] MEDS: AZELASTINE 137MCG NASAL SPY 30 ML (ASTELIN) SCH (08:01)
[2022-02-19] MEDS: MIDODRINE 5 MG TAB PO SCH ×3 (08:05→18:02)
[2022-02-19 10:22] LABS: HEMOGLOBIN 9.5 g/dl (13.5-17.5); MEAN CORPUSCULAR HEMOGLOBIN 31.4 pg (27.0-33.0); MEAN CORPUSCULAR HGB CONC 31.7 g/dl (32.0-36.5); RED BLOOD COUNT 3.03 10^6/uL (4.30-6.10); WHITE BLOOD COUNT 2.8 10^3/uL (4.0-10.0)
[2022-02-19 10:24] LABS: PLATELET COUNT, AUTOMATED 55 10^3/uL (150-450)
[2022-02-19 10:31] LABS: INR 1.48; PROTHROMBIN TIME 18.3 SECONDS (12.7-14.5)
[2022-02-19 10:55] LABS: ALBUMIN 2.5 GM/DL (3.2-5.2); BILIRUBIN,TOTAL 0.6 MG/DL (0.2-1.0); CALCIUM LEVEL 8.7 MG/DL (8.8-10.2); CREATININE FOR GFR 3.62 MG/DL (0.70-1.30); GLOMERULAR FILTRATION RATE 17.8 (>42); MAGNESIUM LEVEL 2.1 MG/DL (1.8-2.4); POTASSIUM SERUM 3.4 MEQ/L (3.5-5.1); TOTAL PROTEIN 5.7 GM/DL (6.4-8.2)
[2022-02-19 10:56] LABS: ATYPICAL LYMPH 1 % (0-5); BASOPHILS 2 % (0-1); EOSINOPHILS 1 % (0-3); LYMPHOCYTES 35 % (16-44); MONOCYTES 5 % (0-5); NEUTROPHILS 56 % (28-66)
[2022-02-19 11:06] LABS: PLATELET ESTIMATE DECREASED (NORMAL)
[2022-02-19 13:08] LABS: HEPARIN INDUCED PLATELET ABY 0.085 OD (0.000-0.400); UNFRACTIONATED HEPARIN HI DOSE <1 % (0-20); UNFRACTIONATED HEPARIN LOW DOS <1 % (0-20)
[2022-02-19] MEDS: LACTOBACILLUS ACIDOPHILUS CAP (BACID) PO SCH (13:08)
[2022-02-19] MEDS: PRAMIPEXOLE 0.25 MG TAB PO SCH ×3 (13:08→20:06)
[2022-02-19] MEDS: OCUVITE 1 TAB PO SCH ×2 (13:08→20:06)
[2022-02-19] MEDS: PANTOPRAZOLE 40MG TAB (PROTONIX) PO SCH (13:08)
[2022-02-19] MEDS: buPROPion **XL** TABLET 150MG (WELLBUTRIN XL) PO SCH (13:08)
[2022-02-19] MEDS: ENTRESTO 24-26MG TABLET (SACUBITRIL/VALSARTAN) PO SCH (13:08)
[2022-02-19] MEDS: DOCUSATE SODIUM 100MG CAPSULE PO SCH ×2 (13:09→20:05)
[2022-02-19] MEDS: bisoproloL fumarate 5 MG TAB PO SCH (13:09)
[2022-02-19] MEDS: clonazePAM 0.5 MG TAB PO SCH ×2 (13:09→20:06)
[2022-02-19] MEDS: OMEGA-3 1000MG CAPSULE PO SCH (13:09)
[2022-02-19] MEDS: MIRALAX *UNIT DOSE* 17GM PACKET PO SCH (13:09)
[2022-02-19] MEDS: guaiFENesin ER 600 MG TAB PO SCH ×2 (13:09→20:06)
[2022-02-19] MEDS: ASPIRIN 81MG ENTERIC TABLET PO SCH (13:10)
[2022-02-19 14:00] VITALS: BP 123/62
[2022-02-19] MEDS: ACETAMINOPHEN TAB 650MG DOSE (2X325MG) PO PRN (14:53)
[2022-02-19] MEDS: BUPRENORPHINE 20 MCG/HR TOP SCH (18:05)
[2022-02-19] MEDS: GABAPENTIN 100 MG CAP PO SCH (20:05)
[2022-02-19] MEDS: ATORVASTATIN 20 MG TAB PO SCH (20:05)
[2022-02-19] MEDS: TAMSULOSIN 0.4 MG CAP PO SCH (20:06)
[2022-02-19] MEDS: traZODone 50 MG TAB PO SCH (20:06)
[2022-02-19 20:26] VITALS: BP 142/72
[2022-02-20] VITALS (32 sets, daily range): BP systolic 96–136; BP diastolic 51–89
[2022-02-20] MEDS: NYSTATIN 500,000 U/5 ML SUSP UDC SS SCH ×6 (01:19→19:19)
[2022-02-20] MEDS: IPRATROPIUM 0.5MG/ALBUTEROL 2.5MG INH SOL UD 3ML (DUONEB) INH SCH ×4 (02:00→19:16)
[2022-02-20] MEDS ORDERED: clonazePAM 0.5 MG TAB PO ONE (03:40)
[2022-02-20] MEDS: MOXIFLOXACIN 400 MG TAB PO SCH (06:16)
[2022-02-20 06:56] LABS: ALBUMIN 2.2 GM/DL (3.2-5.2); BILIRUBIN,TOTAL 1.1 MG/DL (0.2-1.0); CALCIUM LEVEL 7.9 MG/DL (8.8-10.2); CREATININE FOR GFR 5.06 MG/DL (0.70-1.30); GLOMERULAR FILTRATION RATE 12.1 (>42); MAGNESIUM LEVEL 1.7 MG/DL (1.8-2.4); POTASSIUM SERUM 4.1 MEQ/L (3.5-5.1); TOTAL PROTEIN 5.2 GM/DL (6.4-8.2)
[2022-02-20] MEDS: ADVAIR HFA 230/21MCG INHALER INH SCH ×2 (07:19→19:31)
[2022-02-20] MEDS: BUDESONIDE 0.5 MG/2 ML INHALATION SUSPENSION INH SCH ×2 (07:19→19:16)
[2022-02-20] MEDS: MIDODRINE 5 MG TAB PO SCH ×3 (08:00→21:17)
[2022-02-20] MEDS: PRAMIPEXOLE 0.25 MG TAB PO SCH ×3 (08:22→21:00)
[2022-02-20] MEDS: SUCROFERRIC OXYHYDROXIDE 500MG CHEW TAB (VELPHORO) PO SCH ×3 (08:22→18:00)
[2022-02-20] MEDS: OMEGA-3 1000MG CAPSULE PO SCH (08:22)
[2022-02-20] MEDS: buPROPion **XL** TABLET 150MG (WELLBUTRIN XL) PO SCH (08:22)
[2022-02-20] MEDS: PANTOPRAZOLE 40MG TAB (PROTONIX) PO SCH (08:22)
[2022-02-20] MEDS: LACTOBACILLUS ACIDOPHILUS CAP (BACID) PO SCH (08:22)
[2022-02-20] MEDS: OCUVITE 1 TAB PO SCH ×2 (08:23→21:00)
[2022-02-20] MEDS: ENTRESTO 24-26MG TABLET (SACUBITRIL/VALSARTAN) PO SCH (08:23)
[2022-02-20] MEDS: bisoproloL fumarate 5 MG TAB PO SCH (08:23)
[2022-02-20] MEDS: clonazePAM 0.5 MG TAB PO SCH ×2 (08:23→21:00)
[2022-02-20] MEDS: ASPIRIN 81MG ENTERIC TABLET PO SCH (08:23)
[2022-02-20] MEDS: guaiFENesin ER 600 MG TAB PO SCH ×2 (08:23→21:00)
[2022-02-20] MEDS: DOCUSATE SODIUM 100MG CAPSULE PO SCH ×2 (08:25→21:00)
[2022-02-20] MEDS: MIRALAX *UNIT DOSE* 17GM PACKET PO SCH (08:25)
[2022-02-20] MEDS: INSULIN LISPRO (NovoLOG) PER UNIT SC SCH ×3 (08:27→23:34)
[2022-02-20] MEDS: AZELASTINE 137MCG NASAL SPY 30 ML (ASTELIN) SCH (08:28)
[2022-02-20] MEDS: LEVEMIR (INSULIN DETEMIR) 1 UNITS/0.01ML SC SCH (08:28)
[2022-02-20 09:17] LABS: HEMOGLOBIN 8.6 g/dl (13.5-17.5); MEAN CORPUSCULAR HEMOGLOBIN 31.2 pg (27.0-33.0); MEAN CORPUSCULAR HGB CONC 31.9 g/dl (32.0-36.5); MEAN CORPUSCULAR VOLUME 97.8 fl (80.0-96.0); RED BLOOD COUNT 2.76 10^6/uL (4.30-6.10); WHITE BLOOD COUNT 2.4 10^3/uL (4.0-10.0)
[2022-02-20 09:23] LABS: PLATELET COUNT, AUTOMATED 48 10^3/uL (150-450)
[2022-02-20 10:12] LABS: ATYPICAL LYMPH 6 % (0-5); BASOPHILS 1 % (0-1); LYMPHOCYTES 26 % (16-44); MONOCYTES 10 % (0-5); MYELOCYTES 1 % (0-0); NEUTROPHILS 40 % (28-66); PLATELET ESTIMATE DECREASED (NORMAL)
[2022-02-20 10:13] LABS: GIANT PLATELETS 1+
[2022-02-20 10:14] LABS: MICROCYTOSIS 1+
[2022-02-20] MEDS ORDERED: fentaNYL 100 MCG/2 ML INJECTION As Ordered ONE ×2 (13:21→15:04)
[2022-02-20] MEDS ORDERED: ROCURONIUM BROMIDE 50 MG/5 ML VIAL As Ordered ONE (13:23)
[2022-02-20] MEDS ORDERED: LIDOCAINE 2% 100MG/5ML SDV (FOR ANES.) As Ordered ONE (13:23)
[2022-02-20] MEDS ORDERED: THROMBIN SOLN 5,000 UNITS VIAL As Ordered ONE (13:24)
[2022-02-20] MEDS ORDERED: CETACAINE SPRAY 5GM As Ordered ONE (13:24)
[2022-02-20] MEDS ORDERED: LIDOCAINE 2% JELLY 5ML TUBE As Ordered ONE (13:27)
[2022-02-20] MEDS ORDERED: LIDOCAINE VISCOUS 2% SOLN 15ML UDC As Ordered ONE (13:32)
[2022-02-20] MEDS ORDERED: EPINEPHrine 1MG/10ML SYRINGE 1.5IN As Ordered ONE ×2 (13:33→17:35)
[2022-02-20] MEDS ORDERED: dexameTHASONE 4 MG/ML 1ML VIAL (J1100 PER 1MG) As Ordered ONE (15:04)
[2022-02-20] MEDS ORDERED: ONDANSETRON 4MG/2ML VIAL As Ordered ONE (15:04)
[2022-02-20] MEDS ORDERED: propofoL 200 MG/20 ML VIAL As Ordered ONE (15:04)
[2022-02-20] MEDS ORDERED: MIDAZOLAM INJ 2MG/2ML VIAL (J2250 PER 1MG) As Ordered ONE ×2 (15:06→17:26)
[2022-02-20] MEDS ORDERED: ETOMIDATE INJ 20MG/10ML VIAL As Ordered ONE (15:28)
[2022-02-20] MEDS ORDERED: SUGAMMADEX SODIUM 500 MG/5 ML VIAL (BRIDION) As Ordered ONE (16:36)
[2022-02-20] MEDS ORDERED: ACETAMINOPHEN 1000MG 100ML IV BTL (OFIRMEV) (J0131 PER 10MG) As Ordered ONE (16:37)
[2022-02-20] MEDS ORDERED: VASOPRESSIN INJ 20 UNITS/ML VIAL As Ordered ONE (16:56)
[2022-02-20] MEDS ORDERED: DESMOPRESSIN ACETATE IV ONE (17:30)
[2022-02-20] MEDS ORDERED: NS IV ONE (17:30)
[2022-02-20] MEDS ORDERED: ePHEDrine SULFATE 25 MG/5 ML(5MG/ML) SYRINGE As Ordered ONE (17:35)
[2022-02-20] MEDS ORDERED: PHENYLephrine 500MCG 5ML (100MCG/ML) SYRINGE As Ordered ONE (17:35)
[2022-02-20] MEDS ORDERED: AMIODARONE HCL 360 MG/200 ML PREMIXED BAG (NEXTERONE) (J0282 PER 30MG) As Ordered ONE (17:44)
[2022-02-20] MEDS ORDERED: ALBUTEROL 6.7GM INHALER **FOR ANES. CART/OMNICELL ONLY As Ordered ONE (17:47)
[2022-02-20] MEDS ORDERED: AMIODARONE HCL 360 MG in IV 1 EA IV SCH (18:00)
[2022-02-20] MEDS ORDERED: REFRIGERATOR IV KEYS XX PRN (18:20)
[2022-02-20] MEDS ORDERED: EPINEPHrine 1MG/10ML SYRINGE 1.5IN ONE (18:38)
[2022-02-20] MEDS ORDERED: ATROPINE SULF 1MG/10ML SYRINGE (J0461) ONE (18:38)
[2022-02-20] MEDS ORDERED: AMIODARONE 150MG/3ML INJ (J0282) ONE (18:38)
[2022-02-20] MEDS ORDERED: SODIUM BICARBONATE 8.4% INJ 50 ML SYRINGE ONE (18:38)
[2022-02-20] MEDS ORDERED: CALCIUM CHLORIDE 10% 1 GM/10 ML SYR ONE (18:38)
[2022-02-20 18:47] LABS: ABG O2 SATURATION 89.3 % (95.0-99.0); ABG PARTIAL PRESSURE CO2 49.6 mmHg (35.0-45.0); ABG PARTIAL PRESSURE O2 64.4 mmHg (75.0-100.0); ABG STANDARD HCO3 20.2 MEQ/L (22.0-26.0); ABG TOTAL CO2 23.5 MEQ/L (23.0-31.0); ABG pH (ARTERIAL) 7.264 UNITS (7.350-7.450)
[2022-02-20 18:56] LABS: HEMATOCRIT 30.7 % (42.0-52.0); HEMOGLOBIN 8.9 g/dl (13.5-17.5); MEAN CORPUSCULAR HEMOGLOBIN 30.5 pg (27.0-33.0); MEAN CORPUSCULAR VOLUME 105.1 fl (80.0-96.0); RED BLOOD COUNT 2.92 10^6/uL (4.30-6.10)
[2022-02-20 18:58] LABS: PLATELET COUNT, AUTOMATED 63 10^3/uL (150-450)
[2022-02-20] MEDS ORDERED: MIDAZOLAM HCL 100 MG in D5W 80 ML IV SCH (19:00)
[2022-02-20 19:25] LABS: CK-MB VALUE MASS 2.1 NG/ML (<3.6); MB/CK RELATIVE INDEX 1.91 (< OR =4)
[2022-02-20] MEDS ORDERED: EPINEPHrine HCL INJ 1 MG in D5W 249 ML IV SCH (19:30)
[2022-02-20] MEDS ORDERED: NOREPINEPHRINE BITARTRATE 8 MG in D5W 492 ML IV SCH (19:30)
[2022-02-20 19:34] LABS: ALBUMIN 2.2 GM/DL (3.2-5.2); BILIRUBIN,TOTAL 0.7 MG/DL (0.2-1.0); CALCIUM LEVEL 9.9 MG/DL (8.8-10.2); CREATININE FOR GFR 5.89 MG/DL (0.70-1.30); GLOMERULAR FILTRATION RATE 10.2 (>42)
[2022-02-20] MEDS ORDERED: DESMOPRESSIN ACETATE 4 MCG in NS 50 ML IV ONE (21:00)
[2022-02-20] MEDS: QUEtiapine FUMARATE 25 MG TAB PO SCH (21:00)
[2022-02-20] MEDS: traZODone 50 MG TAB PO SCH (21:00)
[2022-02-20] MEDS: TAMSULOSIN 0.4 MG CAP PO SCH (21:00)
[2022-02-20] MEDS: GABAPENTIN 100 MG CAP PO SCH (21:00)
[2022-02-20] MEDS: ATORVASTATIN 20 MG TAB PO SCH (21:00)
[2022-02-20] MEDS: AMIODARONE HCL 360 MG in IV 1 EA IV SCH (23:21)
[2022-02-20] MEDS: MIDAZOLAM INJ 2MG/2ML VIAL (J2250 PER 1MG) IV PRN (23:37)
[2022-02-21] VITALS (114 sets, daily range): BP systolic 82–143; BP diastolic 50–94
[2022-02-21] MEDS: IPRATROPIUM 0.5MG/ALBUTEROL 2.5MG INH SOL UD 3ML (DUONEB) INH SCH ×4 (01:11→19:00)
[2022-02-21] MEDS: MIDAZOLAM INJ 2MG/2ML VIAL (J2250 PER 1MG) IV PRN ×6 (01:15→09:23)
[2022-02-21] MEDS: NYSTATIN 500,000 U/5 ML SUSP UDC SS SCH ×4 (01:19→20:20)
[2022-02-21] MEDS: INSULIN LISPRO (NovoLOG) PER UNIT SC SCH ×4 (05:34→23:41)
[2022-02-21] MEDS: ACETAMINOPHEN TAB 650MG DOSE (2X325MG) PO PRN (05:36)
[2022-02-21 05:58] LABS: HEMATOCRIT 27.6 % (42.0-52.0); HEMOGLOBIN 8.9 g/dl (13.5-17.5); MEAN CORPUSCULAR HEMOGLOBIN 31.2 pg (27.0-33.0); MEAN CORPUSCULAR HGB CONC 32.2 g/dl (32.0-36.5); MEAN CORPUSCULAR VOLUME 96.8 fl (80.0-96.0); RED BLOOD COUNT 2.85 10^6/uL (4.30-6.10); WHITE BLOOD COUNT 2.1 10^3/uL (4.0-10.0)
[2022-02-21 06:05] LABS: PLATELET COUNT, AUTOMATED 50 10^3/uL (150-450)
[2022-02-21] MEDS: MOXIFLOXACIN 400 MG TAB PO SCH ×2 (06:17→18:37)
[2022-02-21 06:18] LABS: CK-MB VALUE MASS 2.5 NG/ML (<3.6); MB/CK RELATIVE INDEX 3.68 (< OR =4)
[2022-02-21 06:36] LABS: ALBUMIN 2.3 GM/DL (3.2-5.2); BILIRUBIN,TOTAL 0.7 MG/DL (0.2-1.0); CREATININE FOR GFR 6.56 MG/DL (0.70-1.30); POTASSIUM SERUM 4.6 MEQ/L (3.5-5.1); TOTAL PROTEIN 5.2 GM/DL (6.4-8.2)
[2022-02-21 06:50] LABS: ATYPICAL LYMPH 1 % (0-5); LYMPHOCYTES 33 % (16-44); METAMYELOCYTES 1 % (0-0); MONOCYTES 9 % (0-5); NEUTROPHILS 47 % (28-66)
[2022-02-21 06:51] LABS: ANISOCYTOSIS 1+; PLATELET ESTIMATE MARKED DECREASE (NORMAL)
[2022-02-21 06:52] LABS: POIKILOCYTOSIS 1+
[2022-02-21 06:53] LABS: POLYCHROMASIA 1+; SCHISTOCYTES 1+
[2022-02-21] MEDS: BUDESONIDE 0.5 MG/2 ML INHALATION SUSPENSION INH SCH ×2 (07:33→19:00)
[2022-02-21] MEDS: ADVAIR HFA 230/21MCG INHALER INH SCH ×2 (07:33→19:00)
[2022-02-21] MEDS: MIDODRINE 5 MG TAB PO SCH ×4 (08:00→18:37)
[2022-02-21] MEDS: SUCROFERRIC OXYHYDROXIDE 500MG CHEW TAB (VELPHORO) PO SCH ×4 (08:00→19:11)
[2022-02-21] MEDS ORDERED: SODIUM CHLORIDE 0.9% 1000ML IV PRN (08:50)
[2022-02-21] MEDS ORDERED: MIDAZOLAM INJ 2MG/2ML VIAL (J2250 PER 1MG) IV STA ×2 (08:57→09:19)
[2022-02-21] MEDS: AZELASTINE 137MCG NASAL SPY 30 ML (ASTELIN) SCH (09:00)
[2022-02-21] MEDS: OCUVITE 1 TAB PO SCH ×2 (09:00→20:21)
[2022-02-21] MEDS: LEVEMIR (INSULIN DETEMIR) 1 UNITS/0.01ML SC SCH (09:00)
[2022-02-21] MEDS: AMIODARONE HCL 360 MG in IV 1 EA IV SCH (11:20)
[2022-02-21] MEDS: bisoproloL fumarate 5 MG TAB PO SCH (11:30)
[2022-02-21 11:36] LABS: CK-MB VALUE MASS 2.7 NG/ML (<3.6); MB/CK RELATIVE INDEX 4.5 (< OR =4)
[2022-02-21] MEDS: LACTOBACILLUS ACIDOPHILUS CAP (BACID) PO SCH (12:29)
[2022-02-21] MEDS: DOCUSATE SODIUM 100MG CAPSULE PO SCH ×2 (12:29→20:21)
[2022-02-21] MEDS: ENTRESTO 24-26MG TABLET (SACUBITRIL/VALSARTAN) PO SCH (12:29)
[2022-02-21] MEDS: ASPIRIN 81MG ENTERIC TABLET PO SCH (12:29)
[2022-02-21] MEDS: guaiFENesin ER 600 MG TAB PO SCH ×2 (12:29→20:21)
[2022-02-21] MEDS: PANTOPRAZOLE 40MG TAB (PROTONIX) PO SCH (12:29)
[2022-02-21] MEDS: PRAMIPEXOLE 0.25 MG TAB PO SCH ×3 (12:29→21:00)
[2022-02-21] MEDS: MIRALAX *UNIT DOSE* 17GM PACKET PO SCH (12:30)
[2022-02-21] MEDS: clonazePAM 0.5 MG TAB PO SCH ×2 (12:30→20:20)
[2022-02-21] MEDS: buPROPion **XL** TABLET 150MG (WELLBUTRIN XL) PO SCH (12:57)
[2022-02-21] MEDS ORDERED: NEOSPORIN TOP OINT 15GM TOP ONE (14:05)
[2022-02-21 14:54] LABS: MB/CK RELATIVE INDEX 4.41 (< OR =4)
[2022-02-21] MEDS ORDERED: CETACAINE SPRAY 5GM TOP ONE (17:20)
[2022-02-21] MEDS: OMEGA-3 1000MG CAPSULE PO SCH (18:37)
[2022-02-21] MEDS: TAMSULOSIN 0.4 MG CAP PO SCH (20:20)
[2022-02-21] MEDS: ATORVASTATIN 20 MG TAB PO SCH (20:20)
[2022-02-21] MEDS: traZODone 50 MG TAB PO SCH (20:20)
[2022-02-21] MEDS: QUEtiapine FUMARATE 25 MG TAB PO SCH (20:21)
[2022-02-21] MEDS: GABAPENTIN 100 MG CAP PO SCH (20:21)
[2022-02-21 22:16] LABS: CK-MB VALUE MASS 4.6 NG/ML (<3.6); MB/CK RELATIVE INDEX 4.89 (< OR =4)
[2022-02-22] VITALS (38 sets, daily range): BP systolic 89–144; BP diastolic 50–66
[2022-02-22] MEDS: NYSTATIN 500,000 U/5 ML SUSP UDC SS SCH ×4 (01:08→18:13)
[2022-02-22] MEDS: IPRATROPIUM 0.5MG/ALBUTEROL 2.5MG INH SOL UD 3ML (DUONEB) INH SCH ×4 (01:33→19:10)
[2022-02-22] MEDS: MOXIFLOXACIN 400 MG TAB PO SCH (05:14)
[2022-02-22] MEDS: INSULIN LISPRO (NovoLOG) PER UNIT SC SCH ×3 (05:14→18:00)
[2022-02-22] MEDS: ADVAIR HFA 230/21MCG INHALER INH SCH ×2 (07:57→19:10)
[2022-02-22] MEDS: BUDESONIDE 0.5 MG/2 ML INHALATION SUSPENSION INH SCH ×2 (07:57→19:10)
[2022-02-22] MEDS ORDERED: ACETAMINOPHEN 650 MG SUPP PR PRN (08:10)
[2022-02-22 08:13] LABS: HEMATOCRIT 31.4 % (42.0-52.0); HEMOGLOBIN 9.6 g/dl (13.5-17.5); MEAN CORPUSCULAR HGB CONC 30.6 g/dl (32.0-36.5); MEAN CORPUSCULAR VOLUME 101.3 fl (80.0-96.0); WHITE BLOOD COUNT 3.3 10^3/uL (4.0-10.0)
[2022-02-22 08:14] LABS: PLATELET COUNT, AUTOMATED 50 10^3/uL (150-450)
[2022-02-22 08:47] LABS: ATYPICAL LYMPH 1 % (0-5); EOSINOPHILS 2 % (0-3); LYMPHOCYTES 27 % (16-44); MONOCYTES 6 % (0-5); NEUTROPHILS 53 % (28-66)
[2022-02-22] MEDS ORDERED: ISOVUE-370 76% 100ML VIAL As Ordered ONE (08:47)
[2022-02-22 08:48] LABS: PLATELET ESTIMATE DECREASED (NORMAL)
[2022-02-22 08:50] LABS: ANISOCYTOSIS 1+
[2022-02-22 08:51] LABS: POIKILOCYTOSIS 1+
[2022-02-22 08:57] LABS: ALBUMIN 2.3 GM/DL (3.2-5.2); BILIRUBIN,TOTAL 0.8 MG/DL (0.2-1.0); CALCIUM LEVEL 8.4 MG/DL (8.8-10.2); CREATININE FOR GFR 5.12 MG/DL (0.70-1.30); GLOMERULAR FILTRATION RATE 11.9 (>42); POTASSIUM SERUM 4.4 MEQ/L (3.5-5.1); TOTAL PROTEIN 5.4 GM/DL (6.4-8.2)
[2022-02-22] MEDS: ENTRESTO 24-26MG TABLET (SACUBITRIL/VALSARTAN) PO SCH (09:00)
[2022-02-22] MEDS: AZELASTINE 137MCG NASAL SPY 30 ML (ASTELIN) SCH (10:10)
[2022-02-22] MEDS: MIRALAX *UNIT DOSE* 17GM PACKET PO SCH (10:11)
[2022-02-22] MEDS: LEVEMIR (INSULIN DETEMIR) 1 UNITS/0.01ML SC SCH (10:16)
[2022-02-22] MEDS: buPROPion **XL** TABLET 150MG (WELLBUTRIN XL) PO SCH (10:18)
[2022-02-22] MEDS: LACTOBACILLUS ACIDOPHILUS CAP (BACID) PO SCH (10:18)
[2022-02-22] MEDS: SUCROFERRIC OXYHYDROXIDE 500MG CHEW TAB (VELPHORO) PO SCH ×3 (10:18→18:13)
[2022-02-22] MEDS: ASPIRIN 81MG ENTERIC TABLET PO SCH (10:18)
[2022-02-22] MEDS: OMEGA-3 1000MG CAPSULE PO SCH (10:19)
[2022-02-22] MEDS: PRAMIPEXOLE 0.25 MG TAB PO SCH ×3 (10:20→21:49)
[2022-02-22] MEDS: guaiFENesin ER 600 MG TAB PO SCH ×2 (10:20→21:51)
[2022-02-22] MEDS: OCUVITE 1 TAB PO SCH ×2 (10:21→21:58)
[2022-02-22] MEDS: MIDODRINE 5 MG TAB PO SCH ×3 (10:22→16:18)
[2022-02-22] MEDS: DOCUSATE SODIUM 100MG CAPSULE PO SCH ×2 (10:22→21:50)
[2022-02-22] MEDS: PANTOPRAZOLE 40MG TAB (PROTONIX) PO SCH (10:23)
[2022-02-22] MEDS: clonazePAM 0.5 MG TAB PO SCH ×2 (10:23→21:49)
[2022-02-22] MEDS: bisoproloL fumarate 5 MG TAB PO SCH (10:25)
[2022-02-22] MEDS: TAMSULOSIN 0.4 MG CAP PO SCH (21:50)
[2022-02-22] MEDS: traZODone 50 MG TAB PO SCH (21:50)
[2022-02-22] MEDS: GABAPENTIN 100 MG CAP PO SCH (21:50)
[2022-02-22] MEDS: APIXABAN 2.5 MG TAB (ELIQUIS) PO SCH (21:50)
[2022-02-22] MEDS: QUEtiapine FUMARATE 25 MG TAB PO SCH (21:51)
[2022-02-22] MEDS: ATORVASTATIN 20 MG TAB PO SCH (21:58)
[2022-02-23] MEDS: INSULIN LISPRO (NovoLOG) PER UNIT SC SCH ×4 (00:31→17:27)
[2022-02-23] MEDS: NYSTATIN 500,000 U/5 ML SUSP UDC SS SCH ×6 (00:31→23:36)
[2022-02-23 01:00] VITALS: BP 110/59
[2022-02-23] MEDS: IPRATROPIUM 0.5MG/ALBUTEROL 2.5MG INH SOL UD 3ML (DUONEB) INH SCH ×5 (03:02→19:26)
[2022-02-23 04:00] VITALS: BP 123/58
[2022-02-23] MEDS: ACETAMINOPHEN TAB 650MG DOSE (2X325MG) PO PRN ×2 (04:46→13:06)
[2022-02-23] MEDS ORDERED: LIDOCAINE 1% SDV 5ML VIAL SC PRN (06:00)
[2022-02-23] MEDS ORDERED: SODIUM CHLORIDE 0.9% 1000ML IV PRN (06:00)
[2022-02-23] MEDS: guaiFENesin ER 600 MG TAB PO SCH (07:30)
[2022-02-23 07:37] VITALS: BP 121/65
[2022-02-23] MEDS: SUCROFERRIC OXYHYDROXIDE 500MG CHEW TAB (VELPHORO) PO SCH ×3 (07:40→17:27)
[2022-02-23] MEDS: BUDESONIDE 0.5 MG/2 ML INHALATION SUSPENSION INH SCH ×2 (07:44→19:26)
[2022-02-23] MEDS: LEVEMIR (INSULIN DETEMIR) 1 UNITS/0.01ML SC SCH (07:45)
[2022-02-23] MEDS: MIDODRINE 5 MG TAB PO SCH ×3 (08:08→16:24)
[2022-02-23] MEDS: MIRALAX *UNIT DOSE* 17GM PACKET PO SCH (08:16)
[2022-02-23] MEDS: APIXABAN 2.5 MG TAB (ELIQUIS) PO SCH (08:17)
[2022-02-23] MEDS: PRAMIPEXOLE 0.25 MG TAB PO SCH ×2 (08:26→16:24)
[2022-02-23 08:36] LABS: HEMATOCRIT 30.6 % (42.0-52.0); HEMOGLOBIN 9.3 g/dl (13.5-17.5); MEAN CORPUSCULAR HEMOGLOBIN 30.2 pg (27.0-33.0); MEAN CORPUSCULAR HGB CONC 30.4 g/dl (32.0-36.5); MEAN CORPUSCULAR VOLUME 99.4 fl (80.0-96.0); RED BLOOD COUNT 3.08 10^6/uL (4.30-6.10); WHITE BLOOD COUNT 2.9 10^3/uL (4.0-10.0)
[2022-02-23 08:40] LABS: PLATELET COUNT, AUTOMATED 44 10^3/uL (150-450)
[2022-02-23] MEDS: OMEGA-3 1000MG CAPSULE PO SCH (09:00)
[2022-02-23] MEDS: DOCUSATE SODIUM 100MG CAPSULE PO SCH (09:00)
[2022-02-23] MEDS: DARBEPOETIN 200MCG/0.4ML *DIALYSIS* SYRINGE (J0882 PER 1MCG) IV SCH (09:01)
[2022-02-23] MEDS: ADVAIR HFA 230/21MCG INHALER INH SCH ×2 (09:20→19:26)
[2022-02-23 09:29] LABS: ALBUMIN 2.4 GM/DL (3.2-5.2); BILIRUBIN,TOTAL 0.9 MG/DL (0.2-1.0); CALCIUM LEVEL 8.2 MG/DL (8.8-10.2); CREATININE FOR GFR 6.63 MG/DL (0.70-1.30); GLOMERULAR FILTRATION RATE 8.9 (>42); MAGNESIUM LEVEL 2.1 MG/DL (1.8-2.4); POTASSIUM SERUM 4.6 MEQ/L (3.5-5.1); TOTAL PROTEIN 5.7 GM/DL (6.4-8.2)
[2022-02-23 10:00] LABS: ATYPICAL LYMPH 8 % (0-5); BASOPHILS 2 % (0-1); LYMPHOCYTES 34 % (16-44); MONOCYTES 6 % (0-5); NEUTROPHILS 50 % (28-66)
[2022-02-23 10:01] LABS: ANISOCYTOSIS 1+; PLATELET ESTIMATE MARKED DECREASE (NORMAL)
[2022-02-23 10:02] LABS: POLYCHROMASIA 1+
[2022-02-23 12:46] VITALS: BP 137/68
[2022-02-23] MEDS: AZELASTINE 137MCG NASAL SPY 30 ML (ASTELIN) SCH (12:49)
[2022-02-23] MEDS: LACTOBACILLUS ACIDOPHILUS CAP (BACID) PO SCH (13:23)
[2022-02-23] MEDS: ASPIRIN 81MG ENTERIC TABLET PO SCH (13:23)
[2022-02-23] MEDS: OCUVITE 1 TAB PO SCH (13:23)
[2022-02-23] MEDS: MOXIFLOXACIN 400 MG TAB PO SCH (13:23)
[2022-02-23] MEDS: buPROPion **XL** TABLET 150MG (WELLBUTRIN XL) PO SCH (13:24)
[2022-02-23] MEDS: PANTOPRAZOLE 40MG TAB (PROTONIX) PO SCH (13:24)
[2022-02-23 14:50] VITALS: BP 126/57
[2022-02-23] MEDS: clonazePAM 0.5 MG TAB PO SCH ×2 (14:50→21:00)
[2022-02-23] MEDS: bisoproloL fumarate 5 MG TAB PO SCH (14:50)
[2022-02-23] MEDS: ENTRESTO 24-26MG TABLET (SACUBITRIL/VALSARTAN) PO SCH (14:51)
[2022-02-23 16:15] VITALS: BP 128/78
[2022-02-23] MEDS ORDERED: ACETAMINOPHEN 650 MG SUPP PR PRN (17:45)
[2022-02-23] MEDS ORDERED: ONDANSETRON 4MG ORAL DISINTEGRATING TAB PO PRN (17:45)
[2022-02-23] MEDS ORDERED: FLEET ENEMA PR PRN (17:45)
[2022-02-23] MEDS ORDERED: BISACODYL 10 MG SUPP PR PRN (17:45)
[2022-02-23] MEDS ORDERED: ONDANSETRON 4MG/2ML VIAL IV PRN (17:45)
[2022-02-23] MEDS ORDERED: VORICONAZOLE 200MG TABLET (VFEND) PO SCH (21:00)
[2022-02-24] MEDS: NYSTATIN 500,000 U/5 ML SUSP UDC SS SCH ×4 (05:09→23:11)
[2022-02-24] MEDS: LORazepam 2 MG/ML VIAL IV PRN ×2 (06:14→21:01)
[2022-02-24] MEDS: clonazePAM 0.5 MG TAB PO SCH ×2 (10:21→20:14)
[2022-02-24] MEDS: MORPHINE 2 MG/ML 1ML VIAL IV PRN ×3 (12:53→19:58)
[2022-02-25] MEDS: MORPHINE 2 MG/ML 1ML VIAL IV PRN ×2 (03:32)
[2022-02-25] MEDS: SCOPOLAMINE 1MG TRANSDERMAL PATCH TOP PRN (03:33)
[2022-02-25] MEDS: NYSTATIN 500,000 U/5 ML SUSP UDC SS SCH ×2 (05:10→11:04)
[2022-02-25] MEDS: clonazePAM 0.5 MG TAB PO SCH ×2 (09:00→19:54)
[2022-02-25] MEDS: BUPRENORPHINE 20 MCG/HR TOP SCH (17:00)
[2022-02-25] MEDS ORDERED: guaiFENesin SYRUP 200MG 10ML UDC PO PRN (17:25)
[2022-02-26] MEDS: LORazepam 1 MG TAB PO PRN ×3 (02:35→23:36)
[2022-02-26] MEDS: MORPHINE 10MG/0.5ML ORAL CONCENTRATE SOLUTION U/D SL PRN ×4 (07:38→23:14)
[2022-02-26] MEDS: clonazePAM 0.5 MG TAB PO SCH ×2 (10:18→20:18)
[2022-02-26] MEDS: HYOSCYAMINE SULFATE 0.125 MG SUBL TABLET PO PRN ×2 (11:24→20:18)
[2022-02-26] MEDS: ATROPINE SULFATE 1% OP SOLN 2 ML BTL SL PRN ×3 (14:45→23:14)
[2022-02-27] MEDS: MORPHINE 10MG/0.5ML ORAL CONCENTRATE SOLUTION U/D SL PRN ×3 (05:40→21:48)
[2022-02-27] MEDS: HYOSCYAMINE SULFATE 0.125 MG SUBL TABLET PO PRN (05:40)
[2022-02-27] MEDS: ATROPINE SULFATE 1% OP SOLN 2 ML BTL SL PRN ×2 (05:40→18:50)
[2022-02-27] MEDS: LORazepam 1 MG TAB PO PRN ×3 (05:55→18:50)
[2022-02-27] MEDS: clonazePAM 0.5 MG TAB PO SCH ×2 (09:00→21:31)
[2022-02-27 18:08] LABS: ASPERGILLUS FLAVUS ABY Negative (Neg:<1:1); ASPERGILLUS FUMIGATUS ABY Negative (Neg:<1:1); ASPERGILLUS GALACTOMANNAN AG 0.04 Index (0.00-0.49); ASPERGILLUS NIGER ABY Negative (Neg:<1:1); CRYPTOCOCCUS ANTIBODY SERUM Negative (Neg:<1:2); CRYPTOCOCCUS ANTIGEN SER Negative (Negative); FUNGITELL, SERUM 64 pg/mL (<80)
[2022-02-27] MEDS: MORPHINE 2 MG/ML 1ML VIAL IV PRN ×3 (18:50→21:47)
[2022-02-28] MEDS: MORPHINE 10MG/0.5ML ORAL CONCENTRATE SOLUTION U/D SL PRN ×5 (00:30→09:07)
[2022-02-28] MEDS: LORazepam 1 MG TAB PO PRN ×3 (00:31→06:28)
[2022-02-28] MEDS: SCOPOLAMINE 1MG TRANSDERMAL PATCH TOP PRN (04:32)
[2022-02-28] MEDS ORDERED: LORazepam 1 MG TAB PO ONE (05:00)
[2022-02-28] MEDS: clonazePAM 0.5 MG TAB PO SCH (09:00)
== END 2022-02-28 09:38 | disposition expired | DRG 163 ==
LOC: M ED 17:13 → M ED INP 23:11 → ENRESERV 02-02 00:18 → M PCU 02-02 01:42 → M MS5PR 02-07 20:46 → M MSPAV 02-18 11:05 → M ICU 02-20 17:58 → M PCU 02-22 20:45 → M MSPAV 02-25 08:39
PROVIDERS: ADMIT Family Medicine; ATTEND Internal Medicine
PROC: 5A1D70Z Performance of Urinary Filtration, Intermittent, Less than 6 Hours Per Day (ICD-10-PCS; 2022-02-02)
PROC: 30233N1 Transfusion of Nonautologous Red Blood Cells into Peripheral Vein, Percutaneous Approach (ICD-10-PCS; 2022-02-15)
PROC: 0BBG8ZX Excision of Left Upper Lung Lobe, Via Natural or Artificial Opening Endoscopic, Diagnostic (ICD-10-PCS; 2022-02-20)
PROC: 06HM33Z Insertion of Infusion Device into Right Femoral Vein, Percutaneous Approach (ICD-10-PCS; 2022-02-20)
PROC: 5A1935Z Respiratory Ventilation, Less than 24 Consecutive Hours (ICD-10-PCS; 2022-02-20)
PROC: 0BC Respiratory System, Extirpation (ICD-10-PCS; principal; 2022-02-21)
PROC: 30233R1 Transfusion of Nonautologous Platelets into Peripheral Vein, Percutaneous Approach (ICD-10-PCS; 2022-02-21)
DX: J16.8 Pneumonia due to other specified infectious organisms (principal); N18.6 End stage renal disease; G93.41 Metabolic encephalopathy; J96.01 Acute respiratory failure with hypoxia; I50.23 Acute on chronic systolic (congestive) heart failure; I13.2 Hypertensive heart and chronic kidney disease with heart failure and with stage 5 chronic kidney disease, or end stage renal disease; N25.81 Secondary hyperparathyroidism of renal origin; J44.0 Chronic obstructive pulmonary disease with (acute) lower respiratory infection; E87.1 Hypo-osmolality and hyponatremia; D61.818 Other pancytopenia; D62 Acute posthemorrhagic anemia; J95.830 Postprocedural hemorrhage of a respiratory system organ or structure following a respiratory system procedure; I97.121 Postprocedural cardiac arrest following other surgery; K92.2 Gastrointestinal hemorrhage, unspecified; I82.612 Acute embolism and thrombosis of superficial veins of left upper extremity; R57.9 Shock, unspecified; E87.2 Acidosis; Z51.5 Encounter for palliative care; Z66 Do not resuscitate; E87.5 Hyperkalemia; E11.22 Type 2 diabetes mellitus with diabetic chronic kidney disease; I48.0 Paroxysmal atrial fibrillation; K22.70 Barrett's esophagus without dysplasia; G47.33 Obstructive sleep apnea (adult) (pediatric); N40.0 Benign prostatic hyperplasia without lower urinary tract symptoms; E11.65 Type 2 diabetes mellitus with hyperglycemia; I25.10 Atherosclerotic heart disease of native coronary artery without angina pectoris; K90.0 Celiac disease; R16.2 Hepatomegaly with splenomegaly, not elsewhere classified; F32.A Depression, unspecified; F41.9 Anxiety disorder, unspecified; D69.6 Thrombocytopenia, unspecified; E83.42 Hypomagnesemia; I95.3 Hypotension of hemodialysis; I46.9 Cardiac arrest, cause unspecified; E87.6 Hypokalemia; M17.0 Bilateral primary osteoarthritis of knee; R00.1 Bradycardia, unspecified; K74.60 Unspecified cirrhosis of liver; K72.90 Hepatic failure, unspecified without coma; Z79.82 Long term (current) use of aspirin; Z79.01 Long term (current) use of anticoagulants; Z95.5 Presence of coronary angioplasty implant and graft; Z79.4 Long term (current) use of insulin; Z99.2 Dependence on renal dialysis; Z79.02 Long term (current) use of antithrombotics/antiplatelets; Z86.718 Personal history of other venous thrombosis and embolism; Z85.828 Personal history of other malignant neoplasm of skin; Z79.899 Other long term (current) drug therapy; Z86.73 Personal history of transient ischemic attack (TIA), and cerebral infarction without residual deficits; Z88.0 Allergy status to penicillin; Z88.6 Allergy status to analgesic agent; Z88.1 Allergy status to other antibiotic agents; Z88.8 Allergy status to other drugs, medicaments and biological substances; Z91.040 Latex allergy status; Z87.891 Personal history of nicotine dependence